=== PATIENT | male | born 1935 | race Caucasian/White ===

== ENCOUNTER → 2016-06-16 | Outpatient (CLI) | payer MEDICARE, OTHER ==
[2016-06-16 12:09] LABS: HEMATOCRIT 47.6 % (39.0-51.0); MEAN CELL VOLUME 84.7 FL (80.0-100.0); MEAN CORPUSCULAR HEMOGLOBIN 28.3 PG (27.0-34.0); MEAN CORPUSCULAR HGB CONC 33.4 % (32.0-36.0); PLATELET COUNT 213 TH/MM3 (150-450); RED BLOOD COUNT 5.63 MIL/MM3 (4.50-5.90); RED CELL DISTRIBUTION WIDTH 14.3 % (11.6-17.2); REVIEW FLAG FINAL; WHITE BLOOD COUNT 9.2 TH/MM3 (4.0-11.0)
[2016-06-16 12:16] LABS: CREATININE RANDOM URINE 68 MG/DL (27-300)
[2016-06-16 12:26] LABS: MICRO ALBUMIN RANDOM URINE RAW LESS THAN 5.0 MG/L (0.0-30.0); MICROALBUMIN/CREAT RATIO RAND 7 MG/G CRE (0-30)
[2016-06-16 12:48] LABS: ALT (GPT) 29 U/L (12-78); ANION GAP 4 MEQ/L (5-15); AST (GOT) 18 U/L (15-37); BICARBONATE 30.1 MEQ/L (21.0-32.0); BLOOD UREA NITROGEN 21 MG/DL (7-18); CHLORIDE 103 MEQ/L (98-107); GLOMERULAR FILTRATION RATE 65 ML/MIN (>89); GLUCOSE,FASTING 115 MG/DL (74-99); POTASSIUM 4.2 MEQ/L (3.5-5.1); SODIUM (NA) 137 MEQ/L (136-145)
[2016-06-16 12:51] LABS: ALKALINE PHOSPHATASE 58 U/L (45-117); HDL CHOLESTEROL 45.7 MG/DL (40.0-60.0); LDL CHOLESTEROL 123 MG/DL (0-99); LDL CHOLESTEROL DIRECT 130 MG/DL (0-99); TOTAL BILIRUBIN ADULT 0.6 MG/DL (0.2-1.0)
[2016-06-16 17:25] LABS: HEMOGLOBIN A1b 0.9 %; HEMOGLOBIN Ao 84.2 %; HEMOGLOBIN LA1C 2.2 %; HEMOGLOBIN P3 4.1 %
== END ==
LOC: PLAB 08:20
PROVIDERS: ATTEND Internal Medicine
DX: E11.65 Type 2 diabetes mellitus with hyperglycemia (principal); I10 Essential (primary) hypertension; E78.5 Hyperlipidemia, unspecified
CPT/HCPCS: 36415; 80053; 80061; 82043; 83036; 83721; 85027

== ENCOUNTER → 2016-10-13 | Outpatient (CLI) | payer MEDICARE, OTHER ==
[2016-10-13 10:57] LABS: HEMATOCRIT 46.6 % (39.0-51.0); MEAN CELL VOLUME 87.4 FL (80.0-100.0); MEAN CORPUSCULAR HEMOGLOBIN 28.6 PG (27.0-34.0); MEAN CORPUSCULAR HGB CONC 32.7 % (32.0-36.0); PLATELET COUNT 199 TH/MM3 (150-450); RED BLOOD COUNT 5.33 MIL/MM3 (4.50-5.90); RED CELL DISTRIBUTION WIDTH 14.4 % (11.6-17.2); REVIEW FLAG FINAL; WHITE BLOOD COUNT 8.6 TH/MM3 (4.0-11.0)
[2016-10-13 12:41] LABS: ALKALINE PHOSPHATASE 58 U/L (45-117); ALT (GPT) 31 U/L (12-78); ANION GAP 6 MEQ/L (5-15); AST (GOT) 19 U/L (15-37); BICARBONATE 30.2 MEQ/L (21.0-32.0); BLOOD UREA NITROGEN 25 MG/DL (7-18); CHLORIDE 103 MEQ/L (98-107); GLOMERULAR FILTRATION RATE 68 ML/MIN (>89); GLUCOSE,FASTING 116 MG/DL (74-99); HDL CHOLESTEROL 44.1 MG/DL (40.0-60.0); LDL CHOLESTEROL 119 MG/DL (0-99); LDL CHOLESTEROL DIRECT 120 MG/DL (0-99); POTASSIUM 4.2 MEQ/L (3.5-5.1); SODIUM (NA) 139 MEQ/L (136-145); TOTAL BILIRUBIN ADULT 0.5 MG/DL (0.2-1.0)
== END ==
LOC: PLAB 08:18
PROVIDERS: ATTEND Internal Medicine
DX: I10 Essential (primary) hypertension (principal); R73.09 Other abnormal glucose; E78.5 Hyperlipidemia, unspecified
CPT/HCPCS: 36415; 80053; 80061; 83721; 85027

== ENCOUNTER → 2017-02-23 | Outpatient (CLI) | payer MEDICARE, OTHER ==
[2017-02-23 10:02] LABS: BLOOD, URINE NEG (NEG); GLUCOSE,URINE NEG (NEG); KETONE, URINE NEG (NEG); NITRITE,URINE NEG (NEG); URINE COLOR YELLOW (YELLW/STRAW)
[2017-02-23 10:04] LABS: HEMATOCRIT 43.6 % (39.0-51.0); MEAN CELL VOLUME 87.3 FL (80.0-100.0); MEAN CORPUSCULAR HEMOGLOBIN 29.4 PG (27.0-34.0); MEAN CORPUSCULAR HGB CONC 33.7 % (32.0-36.0); PLATELET COUNT 215 TH/MM3 (150-450); RED CELL DISTRIBUTION WIDTH 14.2 % (11.6-17.2); REVIEW FLAG FINAL; WHITE BLOOD COUNT 7.9 TH/MM3 (4.0-11.0)
[2017-02-23 10:21] LABS: ANION GAP 6 MEQ/L (5-15); AST (GOT) 17 U/L (15-37); BLOOD UREA NITROGEN 23 MG/DL (7-18); CHLORIDE 102 MEQ/L (98-107); GLOMERULAR FILTRATION RATE 69 ML/MIN (>89); GLUCOSE,FASTING 117 MG/DL (74-99); POTASSIUM 4.3 MEQ/L (3.5-5.1); SODIUM (NA) 135 MEQ/L (136-145)
[2017-02-23 10:32] LABS: ALKALINE PHOSPHATASE 56 U/L (45-117); ALT (GPT) 27 U/L (12-78); FREE T4 0.93 NG/DL (0.76-1.46); HDL CHOLESTEROL 43.6 MG/DL (40.0-60.0); LDL CHOLESTEROL 117 MG/DL (0-99); LDL CHOLESTEROL DIRECT 123 MG/DL (0-99); TOTAL BILIRUBIN ADULT 0.3 MG/DL (0.2-1.0)
== END ==
LOC: PLAB 07:54
PROVIDERS: ATTEND Internal Medicine
DX: I10 Essential (primary) hypertension (principal); E03.9 Hypothyroidism, unspecified; E78.5 Hyperlipidemia, unspecified
CPT/HCPCS: 36415; 80053; 80061; 81001; 83721; 84439; 84443; 85027

== ENCOUNTER → 2017-06-21 | Outpatient (CLI) | payer MEDICARE, OTHER ==
[2017-06-21 14:04] LABS: ALBUMIN 4.1 GM/DL (3.4-5.0); ALT (GPT) 29 U/L (12-78); ANION GAP 7 MEQ/L (5-15); AST (GOT) 16 U/L (15-37); BICARBONATE 25.9 MEQ/L (21.0-32.0); BLOOD UREA NITROGEN 22 MG/DL (7-18); CALCIUM 8.9 MG/DL (8.5-10.1); CHLORIDE 104 MEQ/L (98-107); CHOLESTEROL 186 MG/DL (120-200); CREATININE 1.03 MG/DL (0.60-1.30); GLOMERULAR FILTRATION RATE 69 ML/MIN (>89); GLUCOSE,FASTING 115 MG/DL (74-99); POTASSIUM 4.3 MEQ/L (3.5-5.1); SODIUM (NA) 137 MEQ/L (136-145)
[2017-06-21 14:07] LABS: HEMATOCRIT 43.4 % (39.0-51.0); HEMOGLOBIN 14.8 GM/DL (13.0-17.0); MEAN CELL VOLUME 87.3 FL (80.0-100.0); MEAN CORPUSCULAR HEMOGLOBIN 29.9 PG (27.0-34.0); MEAN CORPUSCULAR HGB CONC 34.2 % (32.0-36.0); MEAN PLATELET VOLUME 8.7 FL (7.0-11.0); PLATELET COUNT 206 TH/MM3 (150-450); RED BLOOD COUNT 4.97 MIL/MM3 (4.50-5.90); RED CELL DISTRIBUTION WIDTH 13.9 % (11.6-17.2); REVIEW FLAG FINAL; WHITE BLOOD COUNT 7.5 TH/MM3 (4.0-11.0)
[2017-06-21 14:08] LABS: ALKALINE PHOSPHATASE 54 U/L (45-117); CHOLESTEROL/ HDL RATIO 4.53 RATIO; LDL CHOLESTEROL 116 MG/DL (0-99); TOTAL BILIRUBIN ADULT 0.5 MG/DL (0.2-1.0); TOTAL PROTEIN 7.5 GM/DL (6.4-8.2); TRIGLYCERIDES 143 MG/DL (42-150)
[2017-06-21 14:10] LABS: CREATININE RANDOM URINE 105 MG/DL (27-300)
[2017-06-21 14:23] LABS: MICRO ALBUMIN RANDOM URINE RAW 5.3 MG/L (0.0-30.0); MICROALBUMIN/CREAT RATIO RAND 5 MG/G CRE (0-30)
== END ==
LOC: PLAB 08:37
DX: I10 Essential (primary) hypertension (principal); E03.9 Hypothyroidism, unspecified; E78.5 Hyperlipidemia, unspecified
CPT/HCPCS: 36415; 80053; 80061; 82043; 85027

== ENCOUNTER → 2017-10-25 | Outpatient (CLI) | payer MEDICARE, OTHER ==
[2017-10-25 10:37] LABS: HEMOGLOBIN 14.6 GM/DL (13.0-17.0); MEAN CELL VOLUME 86.7 FL (80.0-100.0); MEAN CORPUSCULAR HEMOGLOBIN 29.4 PG (27.0-34.0); MEAN CORPUSCULAR HGB CONC 33.9 % (32.0-36.0); MEAN PLATELET VOLUME 8.4 FL (7.0-11.0); PLATELET COUNT 189 TH/MM3 (150-450); RED BLOOD COUNT 4.97 MIL/MM3 (4.50-5.90); RED CELL DISTRIBUTION WIDTH 14.3 % (11.6-17.2); WHITE BLOOD COUNT 7.4 TH/MM3 (4.0-11.0)
[2017-10-25 10:53] LABS: ALBUMIN 3.9 GM/DL (3.4-5.0); AST (GOT) 24 U/L (15-37); BICARBONATE 26.6 MEQ/L (21.0-32.0); BLOOD UREA NITROGEN 20 MG/DL (7-18); CALCIUM 8.9 MG/DL (8.5-10.1); CHLORIDE 104 MEQ/L (98-107); CHOLESTEROL 175 MG/DL (120-200); CREATININE 1.03 MG/DL (0.60-1.30); GLOMERULAR FILTRATION RATE 69 ML/MIN (>89); GLUCOSE,FASTING 114 MG/DL (74-99); SODIUM (NA) 138 MEQ/L (136-145)
[2017-10-25 10:59] LABS: ALKALINE PHOSPHATASE 54 U/L (45-117); ALT (GPT) 29 U/L (12-78); CHOLESTEROL/ HDL RATIO 4.18 RATIO; HDL CHOLESTEROL 41.8 MG/DL (40.0-60.0); LDL CHOLESTEROL 110 MG/DL (0-99); LDL CHOLESTEROL DIRECT 118 MG/DL (0-99); TOTAL BILIRUBIN ADULT 0.5 MG/DL (0.2-1.0); TOTAL PROTEIN 7.4 GM/DL (6.4-8.2); TRIGLYCERIDES 115 MG/DL (42-150)
== END ==
LOC: PLAB 08:20
PROVIDERS: ATTEND Internal Medicine
DX: I10 Essential (primary) hypertension (principal); E78.5 Hyperlipidemia, unspecified
CPT/HCPCS: 36415; 80053; 80061; 83721; 85027

== ENCOUNTER 2018-04-17 12:22 | Inpatient (IN) ==
[2018-04-17] MEDS ORDERED: Labetalol HCl Inj 100 MG/20 ML Vial IV.PUSH ONE (12:46)
--- NOTE | 2018-04-17 12:54 | ED ---
HPI General Chief Complaint: Neuro Symptoms/Deficit Stated Complaint: poss neuro Time Seen by Provider: 04/17/18 12:36 History of Present Illness HPI Narrative: Patient is 83-year-old male with history of high blood pressure, 2 days ago when he woke up noticed mild right arm and right leg weakness, mild left-sided facial droop and difficulty to talk. Patient also mentioned that he has a spot in right eye for 2 days, decrease in size today. Today patient decided to come to emergency room because his symptoms not resolving. Patient is constipated for 2 days. Patient has old symptoms very mild. He denies headache, chest pain, fever, nausea, vomiting. Patient is awake alert oriented x3, complains of forgetfulness, which is not new. Due to 2 days symptoms, patient is not a candidate for TPA treatment. Related Data Home Medications Medication Instructions Recorded Confirmed tamsulosin 0.4 mg PO DAILY 04/17/18 04/17/18 valsartan-hydrochlorothiazide 1 tab PO DAILY 04/17/18 04/17/18 Allergies Allergy/AdvReac Type Severity Reaction Status Date / Time No Known Allergies Allergy Verified 04/17/18 12:44 Review of Systems ROS: all other systems reviewed are negative Neurologic Reports focal weakness PMFSH Medical History Medical History HTN (hypertension) (Acute) Surgical History Surgical History H/O arthroscopic knee surgery (Acute) Social History Social History Substance History: No History of Abuse Smoking Status: Never smoker How Often Do You Have a Drink Containing Alcohol: Never Recent Travel in [facility] within the Last 8 Weeks: No Recent Out of Country Travel within the Last 8 Weeks: No Immunization History Tetanus Immunization: Unsure Exam Narrative Exam Narrative: GENERAL: [-] SKIN: Focused skin assessment warm/dry. HEAD: Atraumatic. Normocephalic. EYES: Pupils equal and round. No scleral icterus. No injection or drainage. ENT: No nasal bleeding or discharge. Mucous membranes pink and moist. NECK: Trachea midline. No JVD. CARDIOVASCULAR: Regular rate and rhythm. No murmur appreciated. RESPIRATORY: No accessory muscle use. Clear to auscultation. Breath sounds equal bilaterally. GASTROINTESTINAL: Abdomen soft, non-tender, nondistended. Hepatic and splenic margins not palpable. MUSCULOSKELETAL: No obvious deformities. No clubbing. No cyanosis. No edema. NEUROLOGICAL: Awake and alert. Patient has 5- out of 5 weakness on right arm and leg, minimal facial droop on left no slurred speech, but patient complained that it is difficult to talk. PSYCHIATRIC: Appropriate mood and affect; insight and judgment normal. Course Initial Documented Vital Signs Temperature 98.9 F 04/17/18 12:30 Pulse Rate 96 H 04/17/18 12:30 Respiratory Rate 22 04/17/18 12:30 Blood Pressure 186/87 H 04/17/18 12:30 Pulse Oximetry 97 04/17/18 12:30 Last Documented Vital Signs Temperature 98.9 F 04/17/18 12:30 Pulse Rate 82 04/17/18 14:23 Respiratory Rate 22 04/17/18 12:30 Blood Pressure 141/72 H 04/17/18 14:23 Pulse Oximetry 97 04/17/18 12:30 Medical Decision Making MDM Narrative Medical decision making narrative: Stroke workup ordered, CAT scan with labs, results are pending. Patient is not a TPA candidate., Labs noted, within normal limits, CAT scan was read as a negative. Patient weakness improving. Needs to be admitted for further evaluation and treatment, case discussed with Dr. Mahmood team. Accepted for admission. Medical Screen Exam Complete: Yes Emergency Medical Condition: Yes Lab Data Result diagrams: 04/17/18 12:53 04/17/18 12:53 Lab Results 04/17/18 04/17/18 04/17/18 Range/Units 12:53 12:53 12:53 WBC 9.5 (4.0-11.0) th/mm3 RBC 4.98 (4.50-5.90) mil/mm3 Hgb 15.3 (13.0-17.0) gm/dL Hct 43.3 (39.0-51.0) % MCV 87.1 (80.0-100.0) fL MCH 30.8 (27.0-34.0) pg MCHC 35.4 (32.0-36.0) % RDW 14.4 (11.6-17.2) % Plt Count 200 (150-450) th/mm3 MPV 8.2 (7.0-11.0) fL Neut % (Auto) 66.3 (16.0-70.0) % Lymph % (Auto) 23.9 (9.0-44.0) % Bleck[place] % (Auto) 8.1 H (0.0-8.0) % Eos % (Auto) 1.4 (0.0-4.0) % Baso % (Auto) 0.3 (0.0-2.0) % Neut # (Auto) 6.3 (1.8-7.7) th/mm3 Lymph # (Auto) 2.3 (1.0-4.8) th/mm3 [place]ck[place] # (Auto) 0.8 (0.0-0.9) th/mm3 Eos # (Auto) 0.1 (0.0-0.4) th/mm3 Baso # (Auto) 0.0 (0.0-0.2) th/mm3 WBC Differential . Differential Comment Auto diff final PT 10.4 (9.8-11.6) sec INR 1.0 Ratio Sodium 138 (136-145) meq/L Potassium 4.1 (3.5-5.1) meq/L Chloride 101 (98-107) meq/L Carbon Dioxide 25.5 (21.0-32.0) meq/L Anion Gap 12 (5-15) meq/L BUN 24 H (7-18) mg/dL Creatinine 1.16 (0.60-1.30) mg/dL Estimated GFR 60 L (>89) mL/min Random Glucose 99 (74-106) mg/dL Calcium 9.2 (8.5-10.1) mg/dL Total Bilirubin 0.4 (0.2-1.0) mg/dL AST 22 (15-37) U/L ALT 31 (12-78) U/L Alkaline Phosphatase 59 (45-117) U/L Troponin I Less than 0.02 L (0.02-0.05) ng/mL Total Protein 8.1 (6.4-8.2) g/dL Albumin 4.3 (3.4-5.0) g/dL Imaging Data Radiologist's impression: Head CT 04/17/18 12:44 CONCLUSION: 1. Patchy white matter disease. . Discharge Plan Discharge Disposition Patient Disposition: 30 Still Patient Discharge Condition Condition: Fair Discharge Details Diagnosis: Acute CVA (cerebrovascular accident) Physicians Team ED Provider: Scottie Olguin Primary Care Provider: UNKNOWN, Rxs /Orders / Referrals /Forms Prescriptions: No Action tamsulosin 0.4 mg Capsule 0.4 mg PO DAILY RF: 0 valsartan-hydrochlorothiazide 320-12.5 mg Tablet 1 tab PO DAILY RF: 0 Discharge Interventions Interventions: Vital Signs Last Done: 04/17/18 14:23 Status ED Status: Admitted Patient
--- NOTE | 2018-04-17 13:28 | CT ---
EXAM DATE: 04/17/2018 1:22 PM EST AGE/SEX: 83 years / Male INDICATIONS: Right sided weakness, left sided facial droop and dysphasia for one week. CLINICAL DATA: This is the patient's initial encounter. Patient reports that signs and symptoms have been present for 1 day and indicates a pain score of 0/10. MEDICAL/SURGICAL HISTORY: Hypertension. None. RADIATION DOSE: 36.48 CTDI (mGy) COMPARISON: No prior exams available for comparison. TECHNIQUE: CT of the head without contrast. Using automated exposure control and adjustment of the mA and/or kV according to patient size, radiation dose was kept as low as reasonably achievable to ob tain optimal diagnostic quality images. DICOM format image data is available electronically for revi ew and comparison. FINDINGS: Ventricles and cisterns are of normal size and configuration. Patchy hypodensity in the bilateral meek trum semiovale and periventricular white matter identified. 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 No fractures are seen. Vascular calcifications are noted. No hemorrhage or mass. CONCLUSION: 1. Patchy white matter disease. . Electronically signed by: Demond Stanley MD 04/17/2018 1:27 PM EST
[2018-04-17 13:33] LABS: Baso % (Auto) 0.3 % (0.0-2.0); Eos # (Auto) 0.1 th/mm3 (0.0-0.4); Eos % (Auto) 1.4 % (0.0-4.0); Hematocrit 43.3 % (39.0-51.0); Hemoglobin 15.3 gm/dL (13.0-17.0); Lymph # (Auto) 2.3 th/mm3 (1.0-4.8); Lymph % (Auto) 23.9 % (9.0-44.0); Mean Corpuscular HGB Conc 35.4 % (32.0-36.0); Mean Corpuscular Hemoglobin 30.8 pg (27.0-34.0); Mean Corpuscular Volume 87.1 fL (80.0-100.0); Mean Platelet Volume 8.2 fL (7.0-11.0); Mono # (Auto) 0.8 th/mm3 (0.0-0.9); Mono % (Auto) 8.1 % (0.0-8.0); Neut # (Auto) 6.3 th/mm3 (1.8-7.7); Neut % (Auto) 66.3 % (16.0-70.0); Platelet Count 200 th/mm3 (150-450); Red Blood Count 4.98 mil/mm3 (4.50-5.90); Red Cell Distribution Width 14.4 % (11.6-17.2); White Blood Count 9.5 th/mm3 (4.0-11.0)
[2018-04-17 13:40] LABS: Prothrombin Time 10.4 sec (9.8-11.6)
[2018-04-17 13:48] LABS: Alanine Aminotransferase 31 U/L (12-78); Albumin 4.3 g/dL (3.4-5.0); Anion Gap 12 meq/L (5-15); Aspartate Aminotransferase 22 U/L (15-37); Blood Urea Nitrogen 24 mg/dL (7-18); Calcium 9.2 mg/dL (8.5-10.1); Carbon Dioxide 25.5 meq/L (21.0-32.0); Chloride 101 meq/L (98-107); Glomerular Filtration Rate 60 mL/min (>89); Glucose,Random 99 mg/dL (74-106); Potassium 4.1 meq/L (3.5-5.1); Sodium 138 meq/L (136-145)
[2018-04-17 13:51] LABS: Alkaline Phosphatase 59 U/L (45-117); Total Protein 8.1 g/dL (6.4-8.2)
[2018-04-17 14:49] LABS: Bilirubin,Urine Negative (Negative); Clarity,Urine Clear (Clear); Color,Urine Straw (Yellw/Straw); Glucose,Urine (UA) Negative (Negative); Leukocyte Esterase,Urine Negative (Negative); Mucus,Urine Few /lpf (Occasional); Nitrite,Urine Negative (Negative); Specific Gravity,Urine 1.008 (1.002-1.035)
--- NOTE | 2018-04-17 14:51 | P.HPFP ---
History of Present Illness Primary Care Physician: UNKNOWN <Noah Mahmood - 04/18/18 13:48> UNKNOWN <Regine Yoon Rich - 04/17/18 14:51> Chief Complaint: Right sided weakness and difficulty with speech <CarRegine Rich - 04/17/18 16:13> History of Present Illness: 83-year-old male past medical history of hypertension presents to the ED with 2-day history of right-sided weakness and difficulty with speech. He said 3 weeks ago he noticed he had increased fatigue and difficulty finding words. He said it was difficult for him to say the correct words as well as remember words for priors. He also had difficulty performing tasks that involved math or calculations. About a week ago he noticed some decreased blurry vision from his right eye in the right peripheral area but that has resolved. In 2 weeks ago he woke up with weakness of his right arm and right leg. He said he noticed he was dropping things such as a month this morning with his right hand. And he was nervous about falling given his right leg weakness. Did not have any falls. He says that he feels like the weakness has been getting worse as well as the difficulty with speech. He also states that the fatigue has been getting worse. He came to the ED because of the continued symptoms. Has had previous surgery on his right leg. He does not use any devices for assistance with walking. He denied any headaches, dizziness, chest pain, shortness of breath, or palpitations. He denies any fevers or weight loss. He has had some constipation for the past week and took MiraLAX and had a bowel movement yesterday. Usually he goes daily. He has had some decreased appetite but has been drinking well. He said he has had some nasal congestion but no other recent illness. PMH: BPH, HTN meds: Aleve at night and Tylenol in the morning for knee pain, valsartan-HCTZ, tamsulosin SH: arthroscopic surgery of right knee Allergies: none Family history: diabetes (sister), stroke (mom) Social: quit smoking 40 yrs ago smoked 1ppd for 20yrs, no alcohol use, Lives at home with son and and grandchildren <CarRegine Villanueva - 04/17/18 17:00> - Diagnosis (1) Acute CVA (cerebrovascular accident) (2) Hypertension (3) Nutrition, metabolism, and development symptoms <Noah Mahmood 04/18/18 13:48> (1) Acute CVA (cerebrovascular accident) (2) Hypertension (3) Nutrition, metabolism, and development symptoms <Regine Yoon 04/17/18 16:47> Review of Systems Constitutional: Reports fatigue, Reports weakness, Denies fever(s), Denies night sweats, Denies weight gain, Denies weight loss <Regine Yoon 16:03> Eyes: Reports blurry vision <Regine Yoon 04/17/18 16:03> Ears, Nose, Mouth, and Throat: Reports nasal discharge, Denies sore throat < Regine Yoon 04/17/18 16:03> Cardiovascular: Denies chest pain <Regine Yoon 04/17/18 16:03> Respiratory: Denies shortness of breath <Regine Yoon 04/17/18 16:03> Gastrointestinal: Reports constipation, Denies loose stools, Denies vomiting < Regine Yoon 04/17/18 16:03> Genitourinary: Denies painful urination <Regine Yoon 04/17/18 16:03> Musculoskeletal: Reports abnormal walking <Regine Yoon 04/17/18 16:03> Skin/Breast: Denies rash <Regine Yoon 04/17/18 16:03> Neurologic: Reports abnormal speech, Reports weakness, Denies numbness, Denies tingling <Regine Yoon 04/17/18 16:03> Psychiatric: Reports difficulty concentrating <Regine Yoon 04/17/18 16: 03> Endocrine: Denies excessive sweating <Regine Yoon 04/17/18 16:03> Hematologic/Lymphatic: Reports easy bruising <Regine Yoon 04/17/18 16:03 > Allergic/Immunologic: Denies hives <Regine Yoon 04/17/18 16:03> PMFSH - History History Provided By: Patient, Family Member <Regine Yoon 04/17/18 14:51> - Medical History Medical History: Medical History (Last Updated 04/17/18 @ 12:36 by Lucila Santos RN) HTN (hypertension) <Noah Mahmood - 04/18/18 13:48> Medical History (Last Updated 04/17/18 @ 12:36 by Lucila Santos, RN) HTN (hypertension) <Regine Yoon - 04/17/18 14:51> - Surgical History Surgical History: Surgical History (Last Updated 04/17/18 @ 12:36 by Lucila Santos, RN) H/O arthroscopic knee surgery <Noah Mahmood - 04/18/18 13:48> Surgical History (Last Updated 04/17/18 @ 12:36 by Lucila Santos, CATHERINE) H/O arthroscopic knee surgery <Regine Yoon - 04/17/18 14:51> - Tobacco History Smoking Status: Never smoker <Regine Yoon 04/17/18 14:51> - Alcohol History How Often Do You Have a Drink Containing Alcohol: Never <Regine Yoon 04/24 14:51> - Substance Use History Substance History: No History of Abuse <Regine Yoon 04/17/18 14:51> - Travel History Recent Travel in the [facility] Within the Last 8 Weeks: No <Regine Yoon 14:51> Recent Travel Out of the Country Within the Last 8 Weeks: No <Regine Yoon 04/17/18 14:51> - Immunization History Tetanus Immunization: Unsure <Regine Yoon 04/17/18 14:51> Medications and Allergies Allergies Allergy/AdvReac Type Severity Reaction Status Date / Time No Known Allergies Allergy Verified 04/17/18 12:44 <Noah Mahmood - 04/18/18 13:48> Home Medications Medication Instructions Recorded Confirmed Type tamsulosin 0.4 mg PO DAILY 04/17/18 04/17/18 History valsartan-hydrochlorothiazide 1 tab PO DAILY 04/17/18 04/17/18 History <Noah Mahmood 04/18/18 13:48> Active Medications: Active Medications Al Hydroxide/Mg Hydroxide (Milk Of Hernando Likeshav) 30 ml PO Q12H PRN PRN Reason: Mild Constipation Aspirin (Aspirin Chew) 81 mg PO DAILY [facility] Last Admin: 04/18/18 09:26 Dose: 81 mg Atorvastatin Calcium (Lipitor) 80 mg PO DAILY [facility] Last Admin: 04/18/18 09:26 Dose: 80 mg Clonidine HCl (Catapres) 0.1 mg PO Q6H PRN PRN Reason: SEE LABEL COMMENTS Enoxaparin Sodium (Lovenox Inj) 40 mg SQ Q24H [facility] Last Admin: 04/17/18 18:52 Dose: Not Given Sodium Chloride (Ns Inj) 1,000 mls @ 84 mls/hr IV.CONT .[id number] [facility] Last Admin: 04/18/18 06:34 Dose: 84 mls/hr Senna/Docusate Sodium (Ria-Colace) 1 tab PO BID [facility] Last Admin: 04/18/18 09:26 Dose: 1 tab Sennosides (Senokot) 17.2 mg PO Q12H PRN PRN Reason: Moderate Constipation <Noah Mahmood - 04/18/18 13:48> Exam Vital signs: Vital Signs 04/17/18 14:23 04/17/18 16:00 04/17/18 20:00 Temperature 98.8 F 98.3 F Pulse Rate 82 81 89 Respiratory Rate 18 18 Blood Pressure 141/72 H 162/77 H 142/63 H Pulse Oximetry 96 97 04/18/18 00:00 04/18/18 04:00 04/18/18 08:00 Temperature 98.3 F 97.7 F 97.4 F L Pulse Rate 79 81 74 Respiratory Rate 20 17 14 Blood Pressure 112/67 145/78 H 145/76 H Pulse Oximetry 96 97 95 Intake & Output 04/17/18 04/18/18 04/18/18 18:59 06:59 18:59 Intake Total 945 / 945 Balance 945 / 945 Weight 88.6 kg 88.5 kg Intake: IV 945 / 945 NS Inj 1,000 ML @ 84 mls/hr IV. 945 / 945 CONT .[id number] [facility] Rx#:[id number] Other: # Voids 3 Date of Last Bowel Movement 04/17/18 04/17/18 Weight On Admission 88.6 kg <TimoteoNoah Addis Carlson 04/18/18 13:48> Vital Signs 04/17/18 12:30 04/17/18 13:35 04/17/18 14:23 Temperature 98.9 F Pulse Rate 96 H 90 82 Respiratory Rate 22 Blood Pressure 186/87 H 142/61 H 141/72 H Pulse Oximetry 97 Intake & Output 04/16/18 04/17/18 04/17/18 18:59 06:59 18:59 Weight 83.915 kg <Regine Yoon - 04/17/18 14:51> Narrative: GENERAL: SKIN: Warm and dry. HEAD: Atraumatic. Normocephalic. No facial asymmetry noted. EYES: Pupils equal and round. No scleral icterus. No injection or drainage. ENT: No nasal bleeding or discharge. Mucous membranes pink and moist. NECK: Trachea midline. No JVD. CARDIOVASCULAR: Regular rate and rhythm. Soft bruit of R carotid. RESPIRATORY: No accessory muscle use. Clear to auscultation. Breath sounds equal bilaterally. GASTROINTESTINAL: Abdomen soft, non-tender, nondistended. Hepatic and splenic margins not palpable. MUSCULOSKELETAL: Extremities without clubbing, cyanosis, or edema. No obvious deformities. NEUROLOGICAL: Awake and alert. CN 2-12 intact. Motor grossly within normal limits. Five out of 5 muscle strength in the arms and legs. Normal speech. No pronator drift. Some difficult with finger to nose bilaterally as well as heel to barker for cerebellar function. PSYCHIATRIC: Appropriate mood and affect; insight and judgment normal. <Regine Yoon - 04/17/18 16:13> Results - Labs Result diagrams: 04/18/18 05:30 04/18/18 05:30 <Noah Mahmood - 04/18/18 13:48> Abnormal lab results 04/17/18 04/17/18 04/17/18 Range/Units 12:53 12:53 14:32 [place] % (Auto) (0.0-8.0) % BUN 24 H (7-18) mg/dL Estimated GFR 60 L (>89) mL/min POC Glucose (68-110) mg/dl Troponin I Less than 0.02 L (0.02-0.05) ng/mL Triglycerides 240 H (42-150) mg/dL LDL Cholesterol, Calc 105 H (0-99) mg/dL Urine Mucus Few H (Occasional) /lpf 04/17/18 04/18/18 04/18/18 Range/Units 20:16 05:30 05:30 [place] % (Auto) 9.3 H (0.0-8.0) % BUN 19 H (7-18) mg/dL Estimated GFR 76 L (>89) mL/min POC Glucose 138 H (68-110) mg/dl Troponin I (0.02-0.05) ng/mL Triglycerides (42-150) mg/dL LDL Cholesterol, Calc (0-99) mg/dL Urine Mucus (Occasional) /lpf 04/18/18 04/18/18 Range/Units 07:45 11:15 [place] % (Auto) (0.0-8.0) % BUN (7-18) mg/dL Estimated GFR (>89) mL/min POC Glucose 121 H 123 H (68-110) mg/dl Troponin I (0.02-0.05) ng/mL Triglycerides (42-150) mg/dL LDL Cholesterol, Calc (0-99) mg/dL Urine Mucus (Occasional) /lpf Short CBC 04/18/18 Range/Units 05:30 WBC 9.0 (4.0-11.0) th/mm3 Hgb 14.5 (13.0-17.0) gm/dL Hct 41.5 (39.0-51.0) % Plt Count 193 (150-450) th/mm3 BMP 04/17/18 04/18/18 12:53 05:30 Sodium 138 140 Potassium 4.1 4.0 Chloride 101 102 Carbon Dioxide 25.5 26.9 BUN 24 H 19 H Creatinine 1.16 0.95 Calcium 9.2 8.7 Cardiac Enzymes 04/17/18 Range/Units 12:53 Troponin I Less than 0.02 L (0.02-0.05) ng/mL Liver Function 04/17/18 Range/Units 12:53 Total Bilirubin 0.4 (0.2-1.0) mg/dL AST 22 (15-37) U/L ALT 31 (12-78) U/L Alkaline Phosphatase 59 (45-117) U/L Albumin 4.3 (3.4-5.0) g/dL Urine 04/17/18 Range/Units 14:32 Urine Color Straw (Yellw/Straw) Urine Clarity Clear (Clear) Urine pH 6.0 (5.0-8.5) Ur Specific [place] 1.008 (1.002-1.035) Urine Protein Negative (Neg-Trace) mg/dL Urine Glucose (UA) Negative (Negative) mg/dL <YoungNoah L - 04/18/18 13:48> Abnormal lab results 04/17/18 04/17/18 Range/Units 12:53 12:53 [place] % (Auto) 8.1 H (0.0-8.0) % BUN 24 H (7-18) mg/dL Estimated GFR 60 L (>89) mL/min Troponin I Less than 0.02 L (0.02-0.05) ng/mL Short CBC 04/17/18 Range/Units 12:53 WBC 9.5 (4.0-11.0) th/mm3 Hgb 15.3 (13.0-17.0) gm/dL Hct 43.3 (39.0-51.0) % Plt Count 200 (150-450) th/mm3 BMP 04/17/18 12:53 Sodium 138 Potassium 4.1 Chloride 101 Carbon Dioxide 25.5 BUN 24 H Creatinine 1.16 Calcium 9.2 Cardiac Enzymes 04/17/18 Range/Units 12:53 Troponin I Less than 0.02 L (0.02-0.05) ng/mL Liver Function 04/17/18 Range/Units 12:53 Total Bilirubin 0.4 (0.2-1.0) mg/dL AST 22 (15-37) U/L ALT 31 (12-78) U/L Alkaline Phosphatase 59 (45-117) U/L Albumin 4.3 (3.4-5.0) g/dL <Regine Yoon - 04/17/18 14:51> - Imaging Impressions Carotid Doppler Study 04/17/18 00:00 CONCLUSION: Technically difficult exam. Unable to obtain color Doppler and the left internal carotid artery. Cannot exclude occlusion. This would be better evaluated with CTA. No hemodynamically significant stenosis identified on the right. Neck CTA 04/17/18 00:00 CONCLUSION: 1. 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 2. High-grade approximately 70% stenosis proximal right internal carotid artery , hemodynamically significant considering findings on the left. Head MRI 04/17/18 15:19 CONCLUSION: 1. Multiple small acute infarcts in the left hemisphere including in the left occipital lobe and deep white matter of the left periventricular region all measuring 1 cm or less in diameter. Head MRA 04/17/18 15:19 CONCLUSION: 1. Occlusion of the left internal carotid artery with absent flow distally. Poor reconstitution of flow in the left middle cerebral artery with a probable focus stenosis in the distal left MCA. 2. The anterior cerebral, posterior cerebral and right middle cerebral artery are patent. <Noah Mahmood - 04/18/18 13:48> Impressions Head CT 04/17/18 12:44 CONCLUSION: 1. Patchy white matter disease. . <Regine Yoon - 04/17/18 14:51> Caprini VTE Risk Assessment Caprini VTE Risk Assessment: Moderate/High Risk (score >= 2) <Regine Yoon - 04/17/18 16:13> Caprini Risk Assessment Model: Point Value = 1 Point Value = 2 Point Value = 3 Point Value = 5 Age 41-60 Minor surgery BMI > 25 kg/m2 Swollen legs Varicose veins or History of unexplained or recurrent spontaneous Oral contraceptives or hormone replacement Sepsis (< 1 month) Serious lung disease, including pneumonia (< 1 month) Abnormal pulmonary function Acute myocardial infarction Congestive heart failure (< 1 month) History of inflammatory bowel disease Medical patient at bed rest Age 61-74 Arthroscopic surgery Major open surgery (> 45 min) Laparoscopic surgery (> 45 min) Malignancy Confined to bed (> 72 hours) Immobilizing plaster cast Central venous access Age >= 75 History of VTE Family history of VTE Factor V Leiden Prothrombin [id number] Lupus anticoagulant Anticardiolipin antibodies Elevated serum homocysteine Heparin-induced thrombocytopenia Other congenital or acquired thrombophilia Stroke (< 1 month) Elective arthroplasty Hip, pelvis, or leg fracture Acute spinal cord injury (< 1 month) <Noah Mahmood - 04/18/18 13:48> Point Value = 1 Point Value = 2 Point Value = 3 Point Value = 5 Age 41-60 Minor surgery BMI > 25 kg/m2 Swollen legs Varicose veins or History of unexplained or recurrent spontaneous Oral contraceptives or hormone replacement Sepsis (< 1 month) Serious lung disease, including pneumonia (< 1 month) Abnormal pulmonary function Acute myocardial infarction Congestive heart failure (< 1 month) History of inflammatory bowel disease Medical patient at bed rest Age 61-74 Arthroscopic surgery Major open surgery (> 45 min) Laparoscopic surgery (> 45 min) Malignancy Confined to bed (> 72 hours) Immobilizing plaster cast Central venous access Age >= 75 History of VTE Family history of VTE Factor V Leiden Prothrombin [id number] Lupus anticoagulant Anticardiolipin antibodies Elevated serum homocysteine Heparin-induced thrombocytopenia Other congenital or acquired thrombophilia Stroke (< 1 month) Elective arthroplasty Hip, pelvis, or leg fracture Acute spinal cord injury (< 1 month) <Regine Yoon - 04/17/18 14:51> Prophylaxis Regimen: Total Risk Factor Score Risk Level Prophylaxis Regimen 0-1 Low Early ambulation 2 Moderate Order ONE of the following: *Sequential Compression Device (SCD) *Heparin 5000 units SQ BID 3-4 Higher Order ONE of the following medications: *Heparin 5000 units SQ TID *Enoxaparin/Lovenox 40 mg SQ daily (WT < 150 kg, CrCl > 30 mL/min) *Enoxaparin/Lovenox 30 mg SQ daily (WT < 150 kg, CrCl > 10-29 mL/min) *Enoxaparin/Lovenox 30 mg SQ BID (WT < 150 kg, CrCl > 30 mL/min) AND/OR *Sequential Compression Device (SCD) 5 or more Highest Order ONE of the following medications: *Heparin 5000 units SQ TID (Preferred with Epidurals) *Enoxaparin/Lovenox 40 mg SQ daily (WT < 150 kg, CrCl > 30 mL/min) *Enoxaparin/Lovenox 30 mg SQ daily (WT < 150 kg, CrCl > 10-29 mL/min) *Enoxaparin/Lovenox 30 mg SQ BID (WT < 150 kg, CrCl > 30 mL/min) AND *Sequential Compression Device (SCD) <Noah Mahmood L - 04/18/18 13:48> Total Risk Factor Score Risk Level Prophylaxis Regimen 0-1 Low Early ambulation 2 Moderate Order ONE of the following: *Sequential Compression Device (SCD) *Heparin 5000 units SQ BID 3-4 Higher Order ONE of the following medications: *Heparin 5000 units SQ TID *Enoxaparin/Lovenox 40 mg SQ daily (WT < 150 kg, CrCl > 30 mL/min) *Enoxaparin/Lovenox 30 mg SQ daily (WT < 150 kg, CrCl > 10-29 mL/min) *Enoxaparin/Lovenox 30 mg SQ BID (WT < 150 kg, CrCl > 30 mL/min) AND/OR *Sequential Compression Device (SCD) 5 or more Highest Order ONE of the following medications: *Heparin 5000 units SQ TID (Preferred with Epidurals) *Enoxaparin/Lovenox 40 mg SQ daily (WT < 150 kg, CrCl > 30 mL/min) *Enoxaparin/Lovenox 30 mg SQ daily (WT < 150 kg, CrCl > 10-29 mL/min) *Enoxaparin/Lovenox 30 mg SQ BID (WT < 150 kg, CrCl > 30 mL/min) AND *Sequential Compression Device (SCD) <Regine Yoon - 04/17/18 14:51> Assessment and Plan - Assessment (1) Acute CVA (cerebrovascular accident) Code(s): I63.9 - Cerebral infarction, unspecified Status: Acute (2) Hypertension Code(s): I10 - Essential (primary) hypertension Status: Acute (3) Nutrition, metabolism, and development symptoms Code(s): R63.8 - Other symptoms and signs concerning food and fluid intake Status: Acute <Noah Mahmood - 04/18/18 13:48> (1) Acute CVA (cerebrovascular accident) Code(s): I63.9 - Cerebral infarction, unspecified Status: Acute Plan: 83-year-old male past medical history of hypertension presents with right-sided weakness and difficulty with speech. Weakness began 2 days ago. [place] that he has had increasing fatigue and difficulty speech for 3 weeks. DDX stroke, TIA, infection, electrolytes. Admission blood pressure 186/87. Troponin negative. CBC and BMP within normal limits. CT head: Chronic microvascular disease, patchy white matter disease -Neurology consult -PT consult -bedside swallow study -MR and MRA head -ECHO -Carotid Doppler -Neuro checks q 4hrs -labs: Lipid panel, TSH -Atorvastatin 80 and aspirin 81 mg Cardiac telemetry (2) Hypertension Code(s): I10 - Essential (primary) hypertension Status: Acute Plan: Currently holding home meds volsartan-HCTZ for permissive HTN -Clonidine 0.1mg PRN BP>220/120 (3) Nutrition, metabolism, and development symptoms Code(s): R63.8 - Other symptoms and signs concerning food and fluid intake Status: Acute Plan: Fluids: none Diet: Cardiac once passes swallow study Electolytes: Monitor and replete as needed DVT: lovenox Discussed with Dr. Mahmood and Dr. Oneil <Regine Yoon - 04/17/18 16:47> - Attending Attestation The exam, history, and the medical decision-making described in the above note were completed with the assistance of the resident physician. I reviewed and agree with the findings presented. I attest that I had a [id number] encounter with the patient on the same day, and personally performed and documented my assessment and findings in the medical record. I saw the patient with the resident team. He is an 83 year old male presenting with several day history of right sided weakness, blurry vision, word slurring, word finding difficulty concerning for acute CVA. I can hear a carotid bruit on the right side. Neuro exam is relatively normal, maybe very mild slurring and speech finding difficulty. At this time the right sided strength is pretty much back to normal. No facial drooping that is obvious. Plan to proceed with workup and management of acute CVA, including aspirin, statin, swallow study, neuro consultation, ECHO, MRI, MRA, etc. Will want to investigate carotid arteries given bruit heard on exam. Will monitor telemetry, rule out atrial fibrillation. PT and OT to work with patient. Discuss healthy lifestyle habits. <Noah Mahmood - 04/18/18 13:48>
--- NOTE | 2018-04-17 16:17 | US ---
EXAM DATE: 04/17/2018 4:12 PM EST AGE/SEX: 83 years / Male INDICATIONS: TIA. CLINICAL DATA: This is the patient's initial encounter. Patient reports that signs and symptoms have been present for 1 day and indicates a pain score of 0/10. MEDICAL/SURGICAL HISTORY: Hypertension. Arthroscopy. COMPARISON: No prior exams available for comparison. VELOCITY PARAMETERS: ICA/CCA Ratio: Right 1.5 , Left n/a. ICA: Right 129 cm/sec, Left n/a. Cm/sec CCA: Right 85 cm/sec, Left 81 cm/sec ECA: Right 255 cm/sec, Left 127 cm/sec Vertebral: Right 30 cm/sec antegrade, Left 45 cm/sec antegrade FINDINGS: Examination was technically difficult. There is moderate plaque formation in the common carotid arter ies bilaterally. Unable to achieve color Doppler on the left in the internal carotid artery. CONCLUSION: Technically difficult exam. Unable to obtain color Doppler and the left internal carotid artery. [place] ot exclude occlusion. This would be better evaluated with CTA. No hemodynamically significant stenosi s identified on the right. Electronically signed by: Norberto Bruno MD 04/17/2018 4:15 PM EST
[2018-04-17 17:44] LABS: Chol/HDL Ratio 4.73 Ratio; Thyroid Stimulating Hormone 1.44 uIU/mL (0.358-3.740)
[2018-04-17] MEDS: Sod Chloride 0.9% Inj 1,000 ML IV.CONT SCH (18:52)
[2018-04-17] MEDS: Enoxaparin Inj 40 MG/0.4 ML Syringe SQ SCH (18:52)
--- NOTE | 2018-04-17 18:54 | MR ---
EXAM DATE: 04/17/2018 6:46 PM EST AGE/SEX: 83 years / Male INDICATIONS: Confusion. CLINICAL DATA: This is the patient's initial encounter. Patient reports that signs and symptoms have been present for 1 day and indicates a pain score of 0/10. MEDICAL/SURGICAL HISTORY: Hypertension. BPH. None. COMPARISON: No prior exams available for comparison. TECHNIQUE: 3D [id number] MRA was performed. Source images, multiplanar STS MIP, and 3D volum e MIP reconstructions were reviewed. FINDINGS: There is no flow in the distal left internal carotid artery. There is some reconstitution of flow int o the right middle cerebral artery but this is poor. There is a focal stenosis in the distal left mid dle cerebral artery. The left anterior cerebral artery is patent. Posterior cerebral arteries and the right anterior and right middle cerebral artery are patent. The basilar artery is patent. Left verte bral is dominant. CONCLUSION: 1. Occlusion of the left internal carotid artery with absent flow distally. Poor reconstitution of f low in the left middle cerebral artery with a probable focus stenosis in the distal left MCA. 2. The anterior cerebral, posterior cerebral and right middle cerebral artery are patent. Electronically signed by: Norberto Bruno MD 04/17/2018 6:53 PM EST
--- NOTE | 2018-04-17 18:56 | MR ---
EXAM DATE: 04/17/2018 6:47 PM EST AGE/SEX: 83 years / Male INDICATIONS: Confusion. CLINICAL DATA: This is the patient's initial encounter. Patient reports that signs and symptoms have been present for 1 day and indicates a pain score of 0/10. MEDICAL/SURGICAL HISTORY: Hypertension. BPH. None. COMPARISON: No prior exams available for comparison. TECHNIQUE: Multiplanar, multisequence examination of the brain was performed without contrast. FINDINGS: No associated hemorrhage or mass effect is seen. No hydrocephalus. There are mild to moderate chronic white matter ischemic changes. CONCLUSION: 1. Multiple small acute infarcts in the left hemisphere including in the left occipital lobe and russ p white matter of the left periventricular region all measuring 1 cm or less in diameter. Electronically signed by: Norberto Bruno MD 04/17/2018 6:55 PM EST
[2018-04-17] MEDS: Senna/Docusate Sodium 8.6/50 MG Tablet PO SCH (20:22)
--- NOTE | 2018-04-17 20:37 | CT ---
EXAM DATE: 04/17/2018 7:19 PM EST AGE/SEX: 83 years / Male INDICATIONS: Obstruction, slurred speech 1 week CLINICAL DATA: This is the patient's initial encounter. Patient reports that signs and symptoms have been present for 1 week and indicates a pain score of 0/10. MEDICAL/SURGICAL HISTORY: Hypertension. None. RADIATION DOSE: 27.93 CTDI (mGy) COMPARISON: No prior exams available for comparison. TECHNIQUE: Volumetric scanning was performed using a multirow detector CT scanner during bolus infus ion of 71ML ml Omnipaque 350 (iohexol) nonionic water-soluble contrast as a single exam dose. The data was postprocessed with a variety of visualization algorithms including full-volume maximum inten sity projection, multiplanar sliding thin-slab reformation, curved-planar reformation, and surface-re ndering techniques. Using automated exposure control and adjustment of the mA and/or kV according to patient size, radiation dose was kept as low as reasonably achievable to obtain optimal diagnostic q uality images. DICOM format image data is available electronically for review and comparison. Percent stenosis is calculated using the diameter of the stenotic region over the diameter of the nor mal distal internal carotid artery. FINDINGS: The great vessel origins are patent. Both common carotid arteries are patent. On the left side just above the carotid bifurcation the left internal carotid artery is completely oc cluded. Flow does reconstitute distally in the petrous and cavernous portion. There is moderate plaque at the right carotid bifurcation and there is a focal high-grade approximate ly 70% stenosis in the proximal right internal carotid artery. This is hemodynamically significant co nsidering the findings on the left side of internal carotid occlusion. Both vertebral arteries are patent within the neck. Left vertebral artery is dominant. CONCLUSION: 1. 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 2. High-grade approximately 70% stenosis proximal right internal carotid artery, hemodynamically sig nificant considering findings on the left. Electronically signed by: Norberto Bruno MD 04/17/2018 8:36 PM EST
[2018-04-18 05:37] LABS: Baso % (Auto) 0.3 % (0.0-2.0); Eos # (Auto) 0.2 th/mm3 (0.0-0.4); Eos % (Auto) 1.8 % (0.0-4.0); Hematocrit 41.5 % (39.0-51.0); Hemoglobin 14.5 gm/dL (13.0-17.0); Lymph # (Auto) 1.7 th/mm3 (1.0-4.8); Lymph % (Auto) 18.8 % (9.0-44.0); Mean Corpuscular HGB Conc 34.9 % (32.0-36.0); Mean Corpuscular Hemoglobin 30.4 pg (27.0-34.0); Mean Corpuscular Volume 87.1 fL (80.0-100.0); Mean Platelet Volume 8.2 fL (7.0-11.0); Mono # (Auto) 0.8 th/mm3 (0.0-0.9); Mono % (Auto) 9.3 % (0.0-8.0); Neut # (Auto) 6.3 th/mm3 (1.8-7.7); Neut % (Auto) 69.8 % (16.0-70.0); Platelet Count 193 th/mm3 (150-450); Red Blood Count 4.76 mil/mm3 (4.50-5.90); Red Cell Distribution Width 14.5 % (11.6-17.2)
[2018-04-18 06:01] LABS: Calcium 8.7 mg/dL (8.5-10.1); Carbon Dioxide 26.9 meq/L (21.0-32.0)
[2018-04-18] MEDS: Sod Chloride 0.9% Inj 1,000 ML IV.CONT SCH ×2 (06:34→21:42)
[2018-04-18] MEDS: Senna/Docusate Sodium 8.6/50 MG Tablet PO SCH ×2 (09:26→21:43)
--- NOTE | 2018-04-18 11:50 | ECHRPT ---
Indication: CVA/TIA CONCLUSIONS The left ventricular systolic function is hyperdynamic with an estimated ejection fraction in the ra nge of 65- 70%. Normal left ventricular size. Wall thickness is normal. No regional wall motion abnormalities are present. Aortic valve sclerosis is present. There is trace tricuspid valve regurgitation. The estimated pulmonary arterial pressure is 30 mmHg. BP: / HR: Rhythm: Sinus MEASUREMENTS (Male / Female) Normal Values Technical Quality:Poor 2D ECHO LV Diastolic Diameter PLAX 3.5 cm 4.2 - 5.9 / 3.9 - 5.3 cm LV Systolic Diameter PLAX 2.1 cm IVS Diastolic Thickness 1.0 cm 0.6 - 1.0 / 0.6 - 0.9 cm LVPW Diastolic Thickness 1.0 cm 0.6 - 1.0 / 0.6 - 0.9 cm LV Relative Wall Thickness 0.6 LVOT Diameter 2.3 cm LV Ejection Fraction MOD 4C 60.0 % LV Ejection Fraction 4C AL 61.5 % M-MODE Aortic Root Diameter MM 2.3 cm AV Cusp Separation MM 1.8 cm DOPPLER TR Peak Velocity 223.0 cm/s TR Peak Gradient 19.9 mmHg Right Atrial Pressure 10.0 mmHg Pulmonary Artery Systolic Pressu 29.9 mmHg Right Ventricular Systolic Press 29.9 mmHg PV Peak Velocity 106.0 cm/s PV Peak Gradient 4.5 mmHg FINDINGS LEFT VENTRICLE The left ventricular systolic function is hyperdynamic with an estimated ejection fraction in the ra nge of 65- 70%. Normal left ventricular size. Wall thickness is normal. No regional wall motion abnormalities are present. AORTIC VALVE Trileaflet aortic valve. Aortic valve sclerosis is present. TRICUSPID VALVE Structurally normal tricuspid valve. There is trace tricuspid valve regurgitation. The estimated pulmonary arterial pressure is 29.9 mmHg. Fidencio Bernstein MD, FACC (Electronically Signed) Final Date:18 April 2018 11:49
--- NOTE | 2018-04-18 12:17 | ECG ---
Date Performed: 04/17/2018 Time Performed: 12:31:32 PTAGE: 83 years EKG: Sinus rhythm WITH OCCASIONAL VENTRICULAR PREMATURE COMPLEXES BORDERLINE ECG INTERPRETATION BASED ON A DEFAULT AGE OF 40 YEARS NO PREVIOUS TRACING DOCTOR: Sánchez Boucher Interpretating Date/Time 04/18/2018 12:11:28
--- NOTE | 2018-04-18 14:00 | P.PNFP ---
Subjective Interval history: No acute events overnight. Patient seen and examined this AM. Remains afebrile, vitals stable. Patient states he feels well this morning. Denies any new focal neuro deficit. States he feels as if his speech is improved since admission. He reports some difficulty using his utensils while eating this morning. Denies fevers, CP, dyspnea, confusion, dizziness or lightheadedness. <Stefan Butterfield - 04/18/18 14:14> Results - Labs Result diagrams: 04/18/18 05:30 04/18/18 05:30 <Noah Mahmood - 04/18/18 15:47> Abnormal lab results 04/17/18 04/17/18 04/18/18 Range/Units 12:53 20:16 05:30 [place] % (Auto) 9.3 H (0.0-8.0) % BUN (7-18) mg/dL Estimated GFR (>89) mL/min POC Glucose 138 H (68-110) mg/dl Triglycerides 240 H (42-150) mg/dL LDL Cholesterol, Calc 105 H (0-99) mg/dL 04/18/18 04/18/18 04/18/18 Range/Units 05:30 07:45 11:15 [place] % (Auto) (0.0-8.0) % BUN 19 H (7-18) mg/dL Estimated GFR 76 L (>89) mL/min POC Glucose 121 H 123 H (68-110) mg/dl Triglycerides (42-150) mg/dL LDL Cholesterol, Calc (0-99) mg/dL Short CBC 04/18/18 Range/Units 05:30 WBC 9.0 (4.0-11.0) th/mm3 Hgb 14.5 (13.0-17.0) gm/dL Hct 41.5 (39.0-51.0) % Plt Count 193 (150-450) th/mm3 BMP 04/18/18 05:30 Sodium 140 Potassium 4.0 Chloride 102 Carbon Dioxide 26.9 BUN 19 H Creatinine 0.95 Calcium 8.7 <Noah Mahmood - 04/18/18 15:47> Abnormal lab results 04/17/18 04/17/18 04/17/18 Range/Units 12:53 12:53 14:32 [place] % (Auto) (0.0-8.0) % BUN (7-18) mg/dL Estimated GFR (>89) mL/min POC Glucose (68-110) mg/dl Troponin I Less than 0.02 L (0.02-0.05) ng/mL Triglycerides 240 H (42-150) mg/dL LDL Cholesterol, Calc 105 H (0-99) mg/dL Urine Mucus Few H (Occasional) /lpf 04/17/18 04/18/18 04/18/18 Range/Units 20:16 05:30 05:30 [place] % (Auto) 9.3 H (0.0-8.0) % BUN 19 H (7-18) mg/dL Estimated GFR 76 L (>89) mL/min POC Glucose 138 H (68-110) mg/dl Troponin I (0.02-0.05) ng/mL Triglycerides (42-150) mg/dL LDL Cholesterol, Calc (0-99) mg/dL Urine Mucus (Occasional) /lpf 04/18/18 04/18/18 Range/Units 07:45 11:15 [place] % (Auto) (0.0-8.0) % BUN (7-18) mg/dL Estimated GFR (>89) mL/min POC Glucose 121 H 123 H (68-110) mg/dl Troponin I (0.02-0.05) ng/mL Triglycerides (42-150) mg/dL LDL Cholesterol, Calc (0-99) mg/dL Urine Mucus (Occasional) /lpf Short CBC 04/18/18 Range/Units 05:30 WBC 9.0 (4.0-11.0) th/mm3 Hgb 14.5 (13.0-17.0) gm/dL Hct 41.5 (39.0-51.0) % Plt Count 193 (150-450) th/mm3 BMP 04/18/18 05:30 Sodium 140 Potassium 4.0 Chloride 102 Carbon Dioxide 26.9 BUN 19 H Creatinine 0.95 Calcium 8.7 Cardiac Enzymes 04/17/18 Range/Units 12:53 Troponin I Less than 0.02 L (0.02-0.05) ng/mL Liver Function 04/17/18 Range/Units 12:53 Total Bilirubin 0.4 (0.2-1.0) mg/dL Alkaline Phosphatase 59 (45-117) U/L Urine 04/17/18 Range/Units 14:32 Urine Color Straw (Yellw/Straw) Urine Clarity Clear (Clear) Urine pH 6.0 (5.0-8.5) Ur Specific [place] 1.008 (1.002-1.035) Urine Protein Negative (Neg-Trace) mg/dL Urine Glucose (UA) Negative (Negative) mg/dL <GilesstephenYao bergmansh - 04/18/18 14:00> - Imaging Impressions Carotid Doppler Study 04/17/18 00:00 CONCLUSION: Technically difficult exam. Unable to obtain color Doppler and the left internal carotid artery. Cannot exclude occlusion. This would be better evaluated with CTA. No hemodynamically significant stenosis identified on the right. Neck CTA 04/17/18 00:00 CONCLUSION: 1. 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 2. High-grade approximately 70% stenosis proximal right internal carotid artery , hemodynamically significant considering findings on the left. Head MRI 04/17/18 15:19 CONCLUSION: 1. Multiple small acute infarcts in the left hemisphere including in the left occipital lobe and deep white matter of the left periventricular region all measuring 1 cm or less in diameter. Head MRA 04/17/18 15:19 CONCLUSION: 1. Occlusion of the left internal carotid artery with absent flow distally. Poor reconstitution of flow in the left middle cerebral artery with a probable focus stenosis in the distal left MCA. 2. The anterior cerebral, posterior cerebral and right middle cerebral artery are patent. <TimoteoNoah Addis - 04/18/18 15:47> Impressions Carotid Doppler Study 04/17/18 00:00 CONCLUSION: Technically difficult exam. Unable to obtain color Doppler and the left internal carotid artery. Cannot exclude occlusion. This would be better evaluated with CTA. No hemodynamically significant stenosis identified on the right. Neck CTA 04/17/18 00:00 CONCLUSION: 1. 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 2. High-grade approximately 70% stenosis proximal right internal carotid artery , hemodynamically significant considering findings on the left. Head MRI 04/17/18 15:19 CONCLUSION: 1. Multiple small acute infarcts in the left hemisphere including in the left occipital lobe and deep white matter of the left periventricular region all measuring 1 cm or less in diameter. Head MRA 11/11/18 15:19 CONCLUSION: 1. Occlusion of the left internal carotid artery with absent flow distally. Poor reconstitution of flow in the left middle cerebral artery with a probable focus stenosis in the distal left MCA. 2. The anterior cerebral, posterior cerebral and right middle cerebral artery are patent. <Stefan Butterfield - 04/18/18 14:14> Physical Exam Vital signs: Vital Signs 04/17/18 16:00 04/17/18 20:00 04/18/18 00:00 Temperature 98.8 F 98.3 F 98.3 F Pulse Rate 81 89 79 Respiratory Rate 18 18 20 Blood Pressure 162/77 H 142/63 H 112/67 Pulse Oximetry 96 97 96 04/18/18 04:00 04/18/18 08:00 04/18/18 12:00 Temperature 97.7 F 97.4 F L 98.2 F Pulse Rate 81 74 82 Respiratory Rate 17 14 16 Blood Pressure 145/78 H 145/76 H 137/82 Pulse Oximetry 97 95 97 Intake & Output 04/17/18 04/18/18 04/18/18 18:59 06:59 18:59 Intake Total 945 / 945 Balance 945 / 945 Weight 88.6 kg 88.5 kg Intake: IV 945 / 945 NS Inj 1,000 ML @ 84 mls/hr IV. 945 / 945 CONT .[id number] [facility] Rx#:[id number] Other: # Voids 3 Date of Last Bowel Movement 04/17/18 04/17/18 Weight On Admission 88.6 kg <Noah Mahmood - 04/18/18 15:47> Vital Signs 04/17/18 14:23 04/17/18 16:00 04/17/18 20:00 Temperature 98.8 F 98.3 F Pulse Rate 82 81 89 Respiratory Rate 18 18 Blood Pressure 141/72 H 162/77 H 142/63 H Pulse Oximetry 96 97 04/18/18 00:00 04/18/18 04:00 04/18/18 08:00 Temperature 98.3 F 97.7 F 97.4 F L Pulse Rate 79 81 74 Respiratory Rate 20 17 14 Blood Pressure 112/67 145/78 H 145/76 H Pulse Oximetry 96 97 95 Intake & Output 04/17/18 04/18/18 04/18/18 18:59 06:59 18:59 Intake Total 945 / 945 Balance 945 / 945 Weight 88.6 kg 88.5 kg Intake: IV 945 / 945 NS Inj 1,000 ML @ 84 mls/hr IV. 945 / 945 CONT .[id number] [facility] Rx#:[id number] Other: # Voids 3 Date of Last Bowel Movement 04/17/18 04/17/18 Weight On Admission 88.6 kg <Stefan Butterfield - 04/18/18 14:00> Narrative: GENERAL: NAD, lying comfortably in bed SKIN: Warm and dry. HEAD: Atraumatic. Normocephalic. No facial asymmetry noted. EYES: Pupils equal and round. EOMI. No scleral icterus. No injection or drainage. ENT: No nasal bleeding or discharge. Mucous membranes pink and moist. NECK: Trachea midline. No JVD. CARDIOVASCULAR: Regular rate and rhythm. Soft bruit of R carotid. RESPIRATORY: No accessory muscle use. Clear to auscultation. Breath sounds equal bilaterally. GASTROINTESTINAL: Abdomen soft, non-tender, nondistended. Hepatic and splenic margins not palpable. MUSCULOSKELETAL: Extremities without clubbing, cyanosis, or edema. No obvious deformities. NEUROLOGICAL: Awake and alert. parachute taper 2-12 intact. Motor grossly within normal limits. Five out of 5 muscle strength in the arms and legs. Normal speech. No pronator drift. Some difficulty with finger to nose but appears intact. PSYCHIATRIC: Appropriate mood and affect; insight and judgment normal. <Stefan Butterfield - 04/18/18 14:14> Assessment and Plan - Assessment (1) Acute CVA (cerebrovascular accident) Code(s): I63.9 - Cerebral infarction, unspecified Status: Acute (2) Internal carotid artery stenosis Code(s): I65.29 - Occlusion and stenosis of unspecified carotid artery Status : Acute (3) Hypertension Code(s): I10 - Essential (primary) hypertension Status: Acute (4) Nutrition, metabolism, and development symptoms Code(s): R63.8 - Other symptoms and signs concerning food and fluid intake Status: Acute <Noah Mahmood - 04/18/18 15:47> (1) Acute CVA (cerebrovascular accident) Code(s): I63.9 - Cerebral infarction, unspecified Status: Acute Plan: 83-year-old male past medical history of hypertension presented with right- sided weakness and difficulty with speech. Weakness began 2 days prior to admission. [place] that he has had increasing fatigue and difficulty speech for 3 weeks. Found to have multiple small acute infarcts in the left hemisphere CT head: Chronic microvascular disease, patchy white matter disease -Neurology consult, appreciate recommendations -PT consult -Consulted OT as patient is reporting some difficulty with fine movements of his hands -Neuroimaging as above, MRI brain showing multiple small acute infarcts in the left hemisphere including in the left occipital lobe and deep white matter of the left periventricular region all measuring 1 cm or less in diameter. -2D echo showing LV systolic function hyperdynamic with and eEF of 65-70%, no regional wall motion abnormalities -Neuro checks q4hrs -Continue Atorvastatin 80 and aspirin 81 mg Continuous cardiac telemetry (2) Internal carotid artery stenosis Code(s): I65.29 - Occlusion and stenosis of unspecified carotid artery Status : Acute Plan: Neck CTA showing high-grade 70% stenosis of the proximal right ICA Vascular surgery consulted (3) Hypertension Code(s): I10 - Essential (primary) hypertension Status: Acute Plan: Currently holding home meds volsartan-HCTZ for permissive HTN BPs ranging 110s-160s/60s-70s since admission -Clonidine 0.1mg PRN BP>220/120 (4) Nutrition, metabolism, and development symptoms Code(s): R63.8 - Other symptoms and signs concerning food and fluid intake Status: Acute Plan: Fluids: per PO Diet: Cardiac diet Electolytes: Monitor and replete as needed DVT ppx: lovenox <Stefan Butterfield - 04/18/18 14:07> - Attending Attestation The exam, history, and the medical decision-making described in the above note were completed with the assistance of the resident physician. I reviewed and agree with the findings presented. I attest that I had a [id number] encounter with the patient on the same day, and personally performed and documented my assessment and findings in the medical record. Patient seen with resident team this morning. He feels better compared to yesterday. Right sided weakness much improved. No facial drooping. Minimal slurring, minimal word finding difficulty. Noted mild difficulty using eating utensils, will consult occupational therapy for assistance. He has significant carotid artery stenosis which may have contributed to CVA. Will consult vascular surgery for further recommendations, may benefit from carotid endarterectomy depending on cost- benefit analysis. Telemetry checked, no evidence of atrial fibrillation. Neurology is on board, appreciate their assistance with management. He is on antiplatelet therapy with aspirin plus a high dose statin. Lifestyle measures to help prevent future strokes discussed at length. Physical therapy helping to assess rehab needs. <Noah Mahmood - 04/18/18 15:47>
--- NOTE | 2018-04-18 17:05 | P.PNVS ---
Subjective Subjective/Hospital Course: 04/18/2018 Consult received Will evaluate patient today Thanks J Objective Vital Signs / I&O: Vital Signs 04/17/18 20:00 04/18/18 00:00 04/18/18 04:00 Temperature 98.3 F 98.3 F 97.7 F Pulse Rate 89 79 81 Respiratory Rate 18 20 17 Blood Pressure 142/63 H 112/67 145/78 H Pulse Oximetry 97 96 97 04/18/18 08:00 04/18/18 12:00 Temperature 97.4 F L 98.2 F Pulse Rate 74 82 Respiratory Rate 14 16 Blood Pressure 145/76 H 137/82 Pulse Oximetry 95 97 Intake & Output 04/17/18 04/18/18 04/18/18 18:59 06:59 18:59 Intake Total 945 / 945 Balance 945 / 945 Weight 88.6 kg 88.5 kg Intake: IV 945 / 945 NS Inj 1,000 ML @ 84 mls/hr IV. 945 / 945 CONT .[id number] [facility] Rx#:[id number] Other: # Voids 3 Date of Last Bowel Movement 04/17/18 04/17/18 Weight On Admission 88.6 kg Laboratory Results - last 24 hr 04/17/18 04/17/18 04/18/18 12:53 20:16 05:30 WBC 9.0 RBC 4.76 Hgb 14.5 Hct 41.5 MCV 87.1 MCH 30.4 MCHC 34.9 RDW 14.5 Plt Count 193 MPV 8.2 Neut % (Auto) 69.8 Lymph % (Auto) 18.8 [place] % (Auto) 9.3 H Eos % (Auto) 1.8 Baso % (Auto) 0.3 Neut # (Auto) 6.3 Lymph # (Auto) 1.7 [place] # (Auto) 0.8 Eos # (Auto) 0.2 Baso # (Auto) 0.0 WBC Differential . Differential Comment Auto diff final Sodium Potassium Chloride Carbon Dioxide Anion Gap BUN Creatinine Estimated GFR POC Glucose 138 H Random Glucose Calcium Triglycerides 240 H Cholesterol 194 LDL Cholesterol, Calc 105 H HDL Cholesterol 41.0 Cholesterol/HDL Ratio 4.73 TSH 1.440 04/18/18 04/18/18 04/18/18 05:30 07:45 11:15 WBC RBC Hgb Hct MCV MCH MCHC RDW Plt Count MPV Neut % (Auto) Lymph % (Auto) [place] % (Auto) Eos % (Auto) Baso % (Auto) Neut # (Auto) Lymph # (Auto) [place] # (Auto) Eos # (Auto) Baso # (Auto) WBC Differential Differential Comment Sodium 140 Potassium 4.0 Chloride 102 Carbon Dioxide 26.9 Anion Gap 11 BUN 19 H Creatinine 0.95 Estimated GFR 76 L POC Glucose 121 H 123 H Random Glucose 101 Calcium 8.7 Triglycerides Cholesterol LDL Cholesterol, Calc HDL Cholesterol Cholesterol/HDL Ratio TSH Impressions Carotid Doppler Study 04/17/18 00:00 CONCLUSION: Technically difficult exam. Unable to obtain color Doppler and the left internal carotid artery. Cannot exclude occlusion. This would be better evaluated with CTA. No hemodynamically significant stenosis identified on the right. Neck CTA 04/17/18 00:00 CONCLUSION: 1. 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 2. High-grade approximately 70% stenosis proximal right internal carotid artery , hemodynamically significant considering findings on the left. Head CT 04/17/18 12:44 CONCLUSION: 1. Patchy white matter disease. . Head MRI 04/17/18 15:19 CONCLUSION: 1. Multiple small acute infarcts in the left hemisphere including in the left occipital lobe and deep white matter of the left periventricular region all measuring 1 cm or less in diameter. Head MRA 04/17/18 15:19 CONCLUSION: 1. Occlusion of the left internal carotid artery with absent flow distally. Poor reconstitution of flow in the left middle cerebral artery with a probable focus stenosis in the distal left MCA. 2. The anterior cerebral, posterior cerebral and right middle cerebral artery are patent.
[2018-04-18] MEDS: Enoxaparin Inj 40 MG/0.4 ML Syringe SQ SCH (17:23)
--- NOTE | 2018-04-18 19:44 | MB ---
cc: Scot Oakes MD DATE: 04/18/2018 CONSULTING PHYSICIAN: Scot Oakes MD of vascular surgery. REASON FOR CONSULTATION: Left internal carotid artery occlusion, right internal artery stenosis over 70%, left hemispheric stroke, hypertension. CRITICAL CARE TIME: 34 minutes. HISTORY OF PRESENT DISEASE: This 83-year-old gentleman presents to the hospital with about 2-day history of weakness and difficulty with speech slurring some words and noted difficulty performing simple mathematical calculations. He was noted to have some blurriness in the vision of the right eye with a veil coming down to his eye from lateral to medial, but that resolved in the form on amaurosis fugax. He also noted some weakness in his right hand. He was worked up and found to have left internal artery occlusion and right internal hemodynamically significant stenosis about 70-80%. Hence the consultation. PAST MEDICAL HISTORY: Hypertension and benign prostatic hypertrophy. SURGICAL HISTORY: Negative. MEDICATIONS: Several for hypertension. ALLERGIES: NO ALLERGIES. PHYSICAL EXAMINATION: GENERAL: Reveals a pleasant 83-year-old gentleman appearing younger than his actual age. HEENT: Normocephalic. No trauma to the head. Pupils equal, reactive. Extraocular muscles intact. There is slight droop of the right side of the face. NECK: Bilateral low carotid pulses. On the right side, the patient has a bruit. On the left side, none. LUNGS: Bilateral breath sounds. HEART: Irregular rhythm. ABDOMEN: Soft. Active bowel sounds. No rebound, no guarding, no masses. EXTREMITIES: The patient has actually palpable femoral, popliteal, dorsalis pedis and posterior tibial pulses. He has no signs of acute vascular deficit. NEUROLOGIC: The patient as above noted facial droop that is slightly prominent on the right. He has slight slurring of speech. Motor strength is slightly decreased in the right arm and there is some drift of the right arm. Slight lateralization. Legs bilaterally equal strength +4. 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 IMPRESSION AND RECOMMENDATIONS: This gentleman has left internal carotid artery occlusion and then on the cerebral angiogram, on MRI, he also has disease in the middle cerebral artery up in the skull. Based on this, I believe that the patient has suffered left hemispheric stroke, but there are some foci of ischemic disease, probably from before. As far as the right carotid artery is concerned, patient does have over 70% stenosis. Based on all of the above, my recommendation will be as follows. We can fix the left side. This is occluded and there is nothing to do about this. However, the patient does have significant right internal carotid artery stenosis, which in the face of left occlusion becomes more of an urgent problem than it would be otherwise. Therefore, I recommended the patient is placed on Plavix, which I have done, stay in the hospital for a few days, and somewhere by the middle of the end of the week, we should proceed with a right carotid endarterectomy. I have explained the risks and benefits to the patient and clearly increased risk of stroke considering that the other side is occluded, but I believe with a functional and otherwise healthy patient, this is the best way to go. I thank you very much for referral. I am planning to take the patient to the operating room Wednesday or . MD EMILY Wills/melissa , 06:42 PM , 06:53 PM
--- NOTE | 2018-04-18 21:06 | MB ---
cc: Brayan Dang MD, PhD DATE: 04/18/2018 REASON FOR CONSULTATION: Stroke. HISTORY OF PRESENT ILLNESS: Mr. Barber has an 83-year-old right-handed man who noted right-sided weakness for the past 2 days and trouble with speech with getting words out. About 3 weeks ago, he had a spell where he had difficulty finding words, but it resolved and had some visual changes about a week ago with blurred vision in the right side. Yesterday morning, he noticed weakness on the right with difficulty grabbing things with the right hand and weakness of the right leg with difficulty getting words out. PAST MEDICAL HISTORY: He has got a history of BPH, hypertension. MEDICINES AT HOME: He takes valsartan, HCTZ, Aleve and tamsulosin. CURRENT MEDICATIONS: Aspirin 81 mg daily, Lipitor 80 mg daily, Plavix 75 mg daily, Lovenox 40 mg subcutaneous daily, Colace, Senokot. NEUROLOGICAL EXAMINATION: VITAL SIGNS: Blood pressure is 145/78, pulse 81, respirations 17, temperature is 97.7 degrees. HIGHER CORTICAL FUNCTION: Alert. He has a mild expressive aphasia. Follows commands well. CRANIAL NERVES: Right upper motor nerve VII palsy, which is mild. MOTOR EXAM: He is mildly weak in the right arm and right leg at 4+/5 with normal strength on the left. Reflexes are 2+ symmetric in the upper and lower extremities. CT of the head shows chronic ischemic change, no acute change present. MRI of the brain: Multiple small acute infarcts in the left hemisphere including left occipital lobe and deep white matter of the left periventricular region. No hemorrhage identified. MRA of the head: Occlusion the left internal carotid artery with absent flow distally, probable focal stenosis of the distal left MCA. CT angiogram: Complete occlusion of the left internal carotid artery flow reconstitutes distally in the petrous and cavernous portion. There is focal high-grade stenosis, 70% right internal carotid artery, thought to be hemodynamically significant considering findings on the left. LABORATORY DATA: White count 9500, hemoglobin 15.3, hematocrit 43.3%, platelets 200,000. PT 10.4, INR 1. Sodium is 138, potassium 4.1, chloride 101, CO2 of 25.5, BUN is 24, creatinine 1.16, glucose is 138. Cholesterol 240, her cholesterol 194, LDL 105. IMPRESSION: 1. Left hemisphere stroke. 2. Occlusion of the left carotid artery. 3. High-grade stenosis of the right carotid artery. PLAN: We would recommend that maintaining the patient at bed rest. I also recommend vascular surgery consultation and I see that Dr. Oakes has evaluated the patient and I agree with his findings. Brayan Dang MD, PhD ALEKSANDER/devan , 07:11 PM , 07:20 PM
[2018-04-19] MEDS: Sod Chloride 0.9% Inj 1,000 ML IV.CONT SCH ×2 (06:36→17:00)
[2018-04-19] MEDS: Senna/Docusate Sodium 8.6/50 MG Tablet PO SCH ×2 (08:20→20:49)
[2018-04-19] MEDS ORDERED: HYDROCHLOROTHIAZIDE PO SCH (08:45)
[2018-04-19] MEDS ORDERED: VALSARTAN PO SCH (08:45)
[2018-04-19] MEDS ORDERED: [UNRECOGNIZED DRUG - OTHER] PO SCH (08:45)
[2018-04-19 09:35] LABS: Baso % (Auto) 0.4 % (0.0-2.0); Eos # (Auto) 0.2 th/mm3 (0.0-0.4); Eos % (Auto) 2.4 % (0.0-4.0); Hematocrit 43.5 % (39.0-51.0); Hemoglobin 14.7 gm/dL (13.0-17.0); Lymph # (Auto) 1.7 th/mm3 (1.0-4.8); Lymph % (Auto) 20.2 % (9.0-44.0); Mean Corpuscular HGB Conc 33.8 % (32.0-36.0); Mean Corpuscular Hemoglobin 29.9 pg (27.0-34.0); Mean Corpuscular Volume 88.4 fL (80.0-100.0); Mean Platelet Volume 8.2 fL (7.0-11.0); Mono # (Auto) 0.7 th/mm3 (0.0-0.9); Mono % (Auto) 8.7 % (0.0-8.0); Neut # (Auto) 5.8 th/mm3 (1.8-7.7); Neut % (Auto) 68.3 % (16.0-70.0); Platelet Count 188 th/mm3 (150-450); Red Blood Count 4.91 mil/mm3 (4.50-5.90); Red Cell Distribution Width 14.2 % (11.6-17.2); White Blood Count 8.5 th/mm3 (4.0-11.0)
[2018-04-19 09:55] LABS: Calcium 8.5 mg/dL (8.5-10.1); Carbon Dioxide 23.7 meq/L (21.0-32.0); Potassium 3.9 meq/L (3.5-5.1)
--- NOTE | 2018-04-19 10:30 | P.PNVS ---
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 Based on this, I believe that the patient has suffered left hemispheric stroke, but there are some foci of ischemic disease, probably from before. In addition the patient has right carotid artery 70% stenosis. Based on all of the above, my recommendation will be as follows. We can't fix the left side. This is occluded and there is nothing to do about this. However, the patient does have significant right internal carotid artery stenosis, which in the face of left occlusion becomes more of an urgent problem than it would be otherwise. Therefore, I recommended the patient is placed on Plavix, which I have done, stay in the hospital for a few days, and somewhere by the middle of the end of the week, we should proceed with a right carotid endarterectomy. I have explained the risks and benefits to the patient and clearly increased risk of stroke considering that the other side is occluded, but I believe with a functional and otherwise healthy patient, this is the best way to go. Right carotid endarterectomy at this point becomes fairly urgent issue considering that this is the only remaining major blood supply to the brain other than small vertebral arteries. All things equal I expect to go ahead with right carotid endarterectomy tomorrow Fully agree with Dr. Dang's evaluation Objective Vital Signs / I&O: Vital Signs 04/18/18 12:00 04/18/18 16:00 04/18/18 20:00 Temperature 98.2 F 98.7 F 98.2 F Pulse Rate 82 77 82 Respiratory Rate 16 16 18 Blood Pressure 137/82 138/63 146/70 H Pulse Oximetry 97 99 97 04/19/18 00:00 04/19/18 04:00 04/19/18 08:00 Temperature 97.6 F 97.6 F 97.8 F Pulse Rate 73 79 72 Respiratory Rate 18 18 16 Blood Pressure 140/70 142/71 H 133/77 Pulse Oximetry 95 98 97 Intake & Output 04/18/18 04/19/18 04/19/18 18:59 06:59 18:59 Intake Total 2200 / 2200 1000 / 1000 Balance 2200 / 2200 1000 / 1000 Weight 89.4 kg Intake: IV 1000 / 1000 1000 / 1000 NS Inj 1,000 ML @ 84 mls/hr IV. 1000 / 1000 1000 / 1000 CONT .[id number] [facility] Rx#:[id number] Oral 1200 / 1200 Other: # Voids 4 3 Date of Last Bowel Movement 04/17/18 04/16/18 04/15/18 Laboratory Results - last 24 hr 04/18/18 04/18/18 04/19/18 11:15 20:19 07:41 WBC RBC Hgb Hct MCV MCH MCHC RDW Plt Count MPV Neut % (Auto) Lymph % (Auto) [place] % (Auto) Eos % (Auto) Baso % (Auto) Neut # (Auto) Lymph # (Auto) [place] # (Auto) Eos # (Auto) Baso # (Auto) WBC Differential Differential Comment Sodium Potassium Chloride Carbon Dioxide Anion Gap BUN Creatinine Estimated GFR POC Glucose 123 H 116 H 110 Random Glucose Calcium 04/19/18 04/19/18 08:25 08:25 WBC 8.5 RBC 4.91 Hgb 14.7 Hct 43.5 MCV 88.4 MCH 29.9 MCHC 33.8 RDW 14.2 Plt Count 188 MPV 8.2 Neut % (Auto) 68.3 Lymph % (Auto) 20.2 [place] % (Auto) 8.7 H Eos % (Auto) 2.4 Baso % (Auto) 0.4 Neut # (Auto) 5.8 Lymph # (Auto) 1.7 [place] # (Auto) 0.7 Eos # (Auto) 0.2 Baso # (Auto) 0.0 WBC Differential . Differential Comment Auto diff final Sodium 138 Potassium 3.9 Chloride 106 Carbon Dioxide 23.7 Anion Gap 8 BUN 18 Creatinine 0.88 Estimated GFR 83 L POC Glucose Random Glucose 105 Calcium 8.5 Impressions Carotid Doppler Study 04/17/18 00:00 CONCLUSION: Technically difficult exam. Unable to obtain color Doppler and the left internal carotid artery. Cannot exclude occlusion. This would be better evaluated with CTA. No hemodynamically significant stenosis identified on the right. Neck CTA 04/17/18 00:00 CONCLUSION: 1. 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 2. High-grade approximately 70% stenosis proximal right internal carotid artery , hemodynamically significant considering findings on the left. Head CT 04/17/18 12:44 CONCLUSION: 1. Patchy white matter disease. . Head MRI 04/17/18 15:19 CONCLUSION: 1. Multiple small acute infarcts in the left hemisphere including in the left occipital lobe and deep white matter of the left periventricular region all measuring 1 cm or less in diameter. Head MRA 04/17/18 15:19 CONCLUSION: 1. Occlusion of the left internal carotid artery with absent flow distally. Poor reconstitution of flow in the left middle cerebral artery with a probable focus stenosis in the distal left MCA. 2. The anterior cerebral, posterior cerebral and right middle cerebral artery are patent.
[2018-04-19] MEDS: hydroCHLOROthiazide 25 MG Tablet PO SCH (12:43)
--- NOTE | 2018-04-19 14:54 | P.PNFP ---
Subjective Interval history: Patient has no complaints this morning. He said he slept well through the night and feels like his speech and strength are improving. He also reports no changes or issues with his vision. He denies any chest pain or shortness of breath. Patient is eating and swallowing well. <CarRegine C - 04/19/18 14:54> Results - Labs Result diagrams: 04/19/18 08:25 04/19/18 08:25 <Noah Mahmood - 04/19/18 17:26> Abnormal lab results 04/18/18 04/19/18 04/19/18 Range/Units 20:19 08:25 08:25 [place] % (Auto) 8.7 H (0.0-8.0) % Estimated GFR 83 L (>89) mL/min POC Glucose 116 H (68-110) mg/dl MTS Gel Crossmatch 04/19/18 Range/Units 14:19 [place] % (Auto) (0.0-8.0) % Estimated GFR (>89) mL/min POC Glucose (68-110) mg/dl MTS Gel Crossmatch See Detail Short CBC 04/19/18 Range/Units 08:25 WBC 8.5 (4.0-11.0) th/mm3 Hgb 14.7 (13.0-17.0) gm/dL Hct 43.5 (39.0-51.0) % Plt Count 188 (150-450) th/mm3 [facility] 04/19/18 08:25 Sodium 138 Potassium 3.9 Chloride 106 Carbon Dioxide 23.7 BUN 18 Creatinine 0.88 Calcium 8.5 <Noah Mahmood - 04/19/18 17:26> Abnormal lab results 04/18/18 04/19/18 04/19/18 Range/Units 20:19 08:25 08:25 [place] % (Auto) 8.7 H (0.0-8.0) % Estimated GFR 83 L (>89) mL/min POC Glucose 116 H (68-110) mg/dl Short CBC 04/19/18 Range/Units 08:25 WBC 8.5 (4.0-11.0) th/mm3 Hgb 14.7 (13.0-17.0) gm/dL Hct 43.5 (39.0-51.0) % Plt Count 188 (150-450) th/mm3 [facility] 04/19/18 08:25 Sodium 138 Potassium 3.9 Chloride 106 Carbon Dioxide 23.7 BUN 18 Creatinine 0.88 Calcium 8.5 <Regine Yoon C - 04/19/18 14:54> Physical Exam Vital signs: Vital Signs 04/18/18 20:00 04/19/18 00:00 04/19/18 04:00 Temperature 98.2 F 97.6 F 97.6 F Pulse Rate 82 73 79 Respiratory Rate 18 18 18 Blood Pressure 146/70 H 140/70 142/71 H Pulse Oximetry 97 95 98 04/19/18 08:00 04/19/18 12:00 04/19/18 16:00 Temperature 97.8 F 97.4 F L 98.1 F Pulse Rate 72 73 72 Respiratory Rate 16 16 16 Blood Pressure 133/77 158/106 H 128/65 Pulse Oximetry 97 96 94 L Intake & Output 04/18/18 04/19/18 04/19/18 18:59 06:59 18:59 Intake Total 2200 / 2200 1000 / 1000 Balance 2200 / 2200 1000 / 1000 Weight 89.4 kg Intake: IV 1000 / 1000 1000 / 1000 NS Inj 1,000 ML @ 84 mls/hr IV. 1000 / 1000 1000 / 1000 CONT .[id number] [facility] Rx#:[id number] Oral 1200 / 1200 Other: # Voids 4 3 Date of Last Bowel Movement 04/17/18 04/16/18 04/15/18 <Noah Mahmood L - 04/19/18 17:26> Vital Signs 04/18/18 16:00 04/18/18 20:00 04/19/18 00:00 Temperature 98.7 F 98.2 F 97.6 F Pulse Rate 77 82 73 Respiratory Rate 16 18 18 Blood Pressure 138/63 146/70 H 140/70 Pulse Oximetry 99 97 95 04/19/18 04:00 04/19/18 08:00 04/19/18 12:00 Temperature 97.6 F 97.8 F 97.4 F L Pulse Rate 79 72 73 Respiratory Rate 18 16 16 Blood Pressure 142/71 H 133/77 158/106 H Pulse Oximetry 98 97 96 Intake & Output 04/18/18 04/19/18 04/19/18 18:59 06:59 18:59 Intake Total 2200 / 2200 1000 / 1000 Balance 2200 / 2200 1000 / 1000 Weight 89.4 kg Intake: IV 1000 / 1000 1000 / 1000 NS Inj 1,000 ML @ 84 mls/hr IV. 1000 / 1000 1000 / 1000 CONT .[id number] [facility] Rx#:[id number] Oral 1200 / 1200 Other: # Voids 4 3 Date of Last Bowel Movement 04/17/18 04/16/18 04/15/18 <Regine Yoon Rich - 04/19/18 14:54> Narrative: GENERAL: NAD, lying comfortably in bed SKIN: Warm and dry. HEAD: Atraumatic. Normocephalic. No facial asymmetry noted. EYES: Pupils equal and round. EOMI. No scleral icterus. No injection or drainage. ENT: No nasal bleeding or discharge. Mucous membranes pink and moist. NECK: Trachea midline. No JVD. CARDIOVASCULAR: Regular rate and rhythm. Soft bruit of R carotid. RESPIRATORY: No accessory muscle use. Clear to auscultation. Breath sounds equal bilaterally. GASTROINTESTINAL: Abdomen soft, non-tender, nondistended. Hepatic and splenic margins not palpable. MUSCULOSKELETAL: Extremities without clubbing, cyanosis, or edema. No obvious deformities. NEUROLOGICAL: Awake and alert. 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 Motor grossly within normal limits. Five out of 5 muscle strength in the arms and legs. Normal speech. No pronator drift. PSYCHIATRIC: Appropriate mood and affect; insight and judgment normal. <Vance Yoonmaksim Villanueva - 04/19/18 14:54> Assessment and Plan - Assessment (1) Acute CVA (cerebrovascular accident) Code(s): I63.9 - Cerebral infarction, unspecified Status: Acute (2) Internal carotid artery stenosis Code(s): I65.29 - Occlusion and stenosis of unspecified carotid artery Status : Acute (3) Hypertension Code(s): I10 - Essential (primary) hypertension Status: Acute (4) Nutrition, metabolism, and development symptoms Code(s): R63.8 - Other symptoms and signs concerning food and fluid intake Status: Acute <Noah Mahmood - 04/19/18 17:26> (1) Acute CVA (cerebrovascular accident) Code(s): I63.9 - Cerebral infarction, unspecified Status: Acute Plan: 83-year-old male past medical history of hypertension presented with right- sided weakness and difficulty with speech. Weakness began 2 days prior to admission. [place] that he has had increasing fatigue and difficulty speech for 3 weeks. Found to have multiple small acute infarcts in the left hemisphere CT head: Chronic microvascular disease, patchy white matter disease -Neurology consult: Recommended bedrest and deferred to vascular for any intervention at this time. -PT consult -Consulted OT as patient is reporting some difficulty with fine movements of his hands -Neuroimaging as above, MRI brain showing multiple small acute infarcts in the left hemisphere including in the left occipital lobe and deep white matter of the left periventricular region all measuring 1 cm or less in diameter. -2D echo showing LV systolic function hyperdynamic with and eEF of 65-70%, no regional wall motion abnormalities -Neuro checks q4hrs -Continue Atorvastatin 80 and aspirin 81 mg; started Plavix 75 mg daily Continuous cardiac telemetry (2) Internal carotid artery stenosis Code(s): I65.29 - Occlusion and stenosis of unspecified carotid artery Status : Acute Plan: Neck CTA showing high-grade 70% stenosis of the proximal right ICA Vascular surgery consulted: Recommended starting Plavix daily and then mid week performing a right carotid endarterectomy (3) Hypertension Code(s): I10 - Essential (primary) hypertension Status: Acute Plan: BPs ranging 110s-160s/60s-70s since admission -Clonidine 0.1mg PRN BP>220/120 -Resumed home meds of losartan HCTZ (4) Nutrition, metabolism, and development symptoms Code(s): R63.8 - Other symptoms and signs concerning food and fluid intake Status: Acute Plan: Fluids: per PO Diet: Cardiac diet Electolytes: Monitor and replete as needed DVT ppx: lovenox <Regine Yoon - 04/19/18 14:48> - Attending Attestation The exam, history, and the medical decision-making described in the above note were completed with the assistance of the resident physician. I reviewed and agree with the findings presented. I attest that I had a [id number] encounter with the patient on the same day, and personally performed and documented my assessment and findings in the medical record. Patient with acute CVA likely secondary to carotid stenosis. No arrhythmias detected on telemetry. At this time, neurologic status is nearly back to baseline. No focal deficits detected on today's examination. Plan is for endarterectomy likely tomorrow. He will continue on aspirin and clopidogrel for antiplatelet therapy. Counseling on lifestyle habits discussed at length. Will need good blood pressure management, healthy diet, daily physical activity. Neurology and vascular surgery on board, appreciate assistance. <Noah Mahmood - 04/19/18 17:26>
[2018-04-19] MEDS: Enoxaparin Inj 40 MG/0.4 ML Syringe SQ SCH (16:00)
--- NOTE | 2018-04-19 20:31 | P.PNNEU ---
Subjective Subjective Comments: Pt is neurologically stable. He still has some difficulty with speech but thinks improving He feels his right sided strenght is stable Active Medications: Active Medications Al Hydroxide/Mg Hydroxide (Milk Of Hernando Pickett) 30 ml PO Q12H PRN PRN Reason: Mild Constipation Aspirin (Aspirin Chew) 81 mg PO DAILY [facility] Last Admin: 04/19/18 08:20 Dose: 81 mg Atorvastatin Calcium (Lipitor) 80 mg PO DAILY [facility] Last Admin: 04/19/18 08:19 Dose: 80 mg Clonidine HCl (Catapres) 0.1 mg PO Q6H PRN PRN Reason: SEE LABEL COMMENTS Clopidogrel Bisulfate (Plavix) 75 mg PO DAILY [facility] Last Admin: 04/19/18 08:20 Dose: 75 mg Enoxaparin Sodium (Lovenox Inj) 40 mg SQ Q24H [facility] Last Admin: 04/19/18 16:00 Dose: 40 mg Hydrochlorothiazide (Hydrodiuril) 12.5 mg PO DAILY [facility] Last Admin: 04/19/18 12:43 Dose: 12.5 mg Sodium Chloride (Ns Inj) 1,000 mls @ 84 mls/hr IV.CONT .[id number] [facility] Last Admin: 04/19/18 17:00 Dose: 84 mls/hr Losartan Potassium (Cozaar) 100 mg PO DAILY [facility] Last Admin: 04/19/18 12:44 Dose: 100 mg Miscellaneous (Pill Splitter) 1 each OTHER UNSCH PRN PRN Reason: SEE LABEL COMMENTS Patient Own Medication ( Valsartan- Hydrochlorothiazide [Valsartan- Hydrochlorothiazide] 1 T 0 each PO DAILY [facility] Senna/Docusate Sodium (Ria-Colace) 1 tab PO BID [facility] Last Admin: 04/19/18 08:20 Dose: 1 tab Sennosides (Senokot) 17.2 mg PO Q12H PRN PRN Reason: Moderate Constipation Allergies/Adverse Reactions: Allergies Allergy/AdvReac Type Severity Reaction Status Date / Time No Known Allergies Allergy Verified 04/17/18 12:44 Physical Exam Vital signs: Vital Signs 04/19/18 00:00 04/19/18 04:00 04/19/18 08:00 Temperature 97.6 F 97.6 F 97.8 F Pulse Rate 73 79 72 Respiratory Rate 18 18 16 Blood Pressure 140/70 142/71 H 133/77 Pulse Oximetry 95 98 97 04/19/18 12:00 04/19/18 16:00 04/19/18 19:30 Temperature 97.4 F L 98.1 F Pulse Rate 73 72 75 Respiratory Rate 16 16 Blood Pressure 158/106 H 128/65 Pulse Oximetry 96 94 L Intake & Output 04/19/18 04/19/18 04/20/18 06:59 18:59 06:59 Intake Total 1000 / 1000 Balance 1000 / 1000 Weight 89.4 kg Intake: IV 1000 / 1000 NS Inj 1,000 ML @ 84 mls/hr IV. 1000 / 1000 CONT .[id number] [facility] Rx#:[id number] Other: # Voids 3 Date of Last Bowel Movement 04/16/18 04/19/18 # Bowel Movements 2 - Routine Neurological Exam alert, speech has mild hesitancy. He can repeat phrases. comprehension is normal CN intact MOTOR 4+/5 RUE and RLE. 5/5 LUE and LLE Objective Laboratory Results - last 24 hr 04/19/18 04/19/18 04/19/18 07:41 08:25 08:25 WBC 8.5 RBC 4.91 Hgb 14.7 Hct 43.5 MCV 88.4 MCH 29.9 MCHC 33.8 RDW 14.2 Plt Count 188 MPV 8.2 Neut % (Auto) 68.3 Lymph % (Auto) 20.2 [place] % (Auto) 8.7 H Eos % (Auto) 2.4 Baso % (Auto) 0.4 Neut # (Auto) 5.8 Lymph # (Auto) 1.7 [place] # (Auto) 0.7 Eos # (Auto) 0.2 Baso # (Auto) 0.0 WBC Differential . Differential Comment Auto diff final Sodium 138 Potassium 3.9 Chloride 106 Carbon Dioxide 23.7 Anion Gap 8 BUN 18 Creatinine 0.88 Estimated GFR 83 L POC Glucose 110 Random Glucose 105 Calcium 8.5 Blood Type Antibody Screen MTS Gel Crossmatch 04/19/18 14:19 WBC RBC Hgb Hct MCV MCH MCHC RDW Plt Count MPV Neut % (Auto) Lymph % (Auto) [place] % (Auto) Eos % (Auto) Baso % (Auto) Neut # (Auto) Lymph # (Auto) [place] # (Auto) Eos # (Auto) Baso # (Auto) WBC Differential Differential Comment Sodium Potassium Chloride Carbon Dioxide Anion Gap BUN Creatinine Estimated GFR POC Glucose Random Glucose Calcium Blood Type O Negative Antibody Screen Negative MTS Gel Crossmatch See Detail Review/Management - Diagnosis (1) Acute CVA (cerebrovascular accident) Code(s): I63.9 - Cerebral infarction, unspecified Status: Acute Current Visit: Yes - Review/Management Plan: I agree with plan to proceed with right carotid endarterectomy.
[2018-04-20] MEDS: Sod Chloride 0.9% Inj 1,000 ML IV.CONT SCH ×2 (05:33→18:21)
[2018-04-20] MEDS: hydroCHLOROthiazide 25 MG Tablet PO SCH (09:31)
[2018-04-20] MEDS: Senna/Docusate Sodium 8.6/50 MG Tablet PO SCH ×2 (09:32→20:45)
[2018-04-20 10:43] LABS: Baso % (Auto) 0.4 % (0.0-2.0); Eos # (Auto) 0.2 th/mm3 (0.0-0.4); Eos % (Auto) 2.6 % (0.0-4.0); Hemoglobin 15.8 gm/dL (13.0-17.0); Lymph # (Auto) 1.9 th/mm3 (1.0-4.8); Lymph % (Auto) 21.5 % (9.0-44.0); Mean Corpuscular HGB Conc 33.6 % (32.0-36.0); Mean Corpuscular Volume 89.2 fL (80.0-100.0); Mean Platelet Volume 8.3 fL (7.0-11.0); Mono # (Auto) 0.7 th/mm3 (0.0-0.9); Mono % (Auto) 8.4 % (0.0-8.0); Neut # (Auto) 5.8 th/mm3 (1.8-7.7); Neut % (Auto) 67.1 % (16.0-70.0); Platelet Count 202 th/mm3 (150-450); Red Blood Count 5.27 mil/mm3 (4.50-5.90); Red Cell Distribution Width 14.4 % (11.6-17.2); White Blood Count 8.6 th/mm3 (4.0-11.0)
[2018-04-20] MEDS ORDERED: Chlorhexidine Gluconate 2% 1 Pack (2 Cloths) TOPICAL ONE (10:45)
[2018-04-20] MEDS ORDERED: Metoprolol Tartrate 25 MG Tablet PO ONE (10:45)
[2018-04-20] MEDS ORDERED: Sodium Chlor 0.9% Inj 500 ML IV.CONT ONE ×2 (10:45→11:32)
[2018-04-20] MEDS ORDERED: fentaNYL Citrate Inj 100 MCG/2 ML Ampul ONE ×2 (10:49→14:24)
[2018-04-20] MEDS ORDERED: Lidocaine 1% Inj 50 ML Vial ONE (11:08)
[2018-04-20] MEDS ORDERED: Heparin 10,000 UNITS/10 ML Vial (for IV use) ONE (11:10)
[2018-04-20] MEDS ORDERED: Protamine Sulfate Inj 50 MG/5 ML Vial ONE (11:10)
[2018-04-20 11:14] LABS: Calcium 8.6 mg/dL (8.5-10.1); Carbon Dioxide 29.9 meq/L (21.0-32.0); Potassium 3.6 meq/L (3.5-5.1)
[2018-04-20] MEDS ORDERED: Phenylephrine/NS 1000 MCG/10ML Syringe IV.PUSH ONE (11:32)
[2018-04-20] MEDS ORDERED: Glycopyrrolate Inj 1 MG/5 ML Syringe IV.PUSH ONE (11:32)
[2018-04-20] MEDS ORDERED: Lidocaine PF 1% Inj 5 ML Syringe OTHER ONE (11:32)
[2018-04-20] MEDS ORDERED: Normosol-R pH 7.4 Inj 2,000 ML IV.CONT ONE (11:32)
[2018-04-20] MEDS ORDERED: Sodium Chlor 0.9% Inj 250 ML IV.CONT ONE (11:32)
[2018-04-20] MEDS ORDERED: Labetalol HCl Inj 100 MG/20 ML Vial IV.CONT ONE (11:32)
[2018-04-20] MEDS ORDERED: ceFAZolin 1 GM Premix Inj 2 GM/100 ML PIGGYBACK IV.SIG ONE (12:33)
[2018-04-20] MEDS: Heparin 10,000 UNITS/10 ML Vial (for IV use) ONE ×2 (12:42→13:51)
[2018-04-20] MEDS: Heparin - SQ 10,000 UNITS/ML Vial ONE ×2 (12:56→13:52)
--- NOTE | 2018-04-20 13:07 | P.PNFP ---
Subjective Interval history: Patient feels like his strength is improving daily and less weakness. He is still having difficulty with finding words and using food utensils. He denies any issues with vision or dizziness. Patient going to surgery today. <Regine Yoon - 04/20/18 13:07> Results - Labs Result diagrams: 04/20/18 07:49 04/20/18 07:49 <Noah Mahmood - 04/20/18 17:31> Abnormal lab results 04/20/18 04/20/18 Range/Units 07:49 07:49 [place] % (Auto) 8.4 H (0.0-8.0) % Estimated GFR 79 L (>89) mL/min Short CBC 04/20/18 Range/Units 07:49 WBC 8.6 (4.0-11.0) th/mm3 Hgb 15.8 (13.0-17.0) gm/dL Hct 47.0 (39.0-51.0) % Plt Count 202 (150-450) th/mm3 [facility] 04/20/18 07:49 Sodium 139 Potassium 3.6 Chloride 103 Carbon Dioxide 29.9 BUN 16 Creatinine 0.91 Calcium 8.6 <Noah Mahmood - 04/20/18 17:31> Abnormal lab results 04/19/18 04/20/18 04/20/18 Range/Units 14:19 07:49 07:49 [place] % (Auto) 8.4 H (0.0-8.0) % Estimated GFR 79 L (>89) mL/min MTS Gel Crossmatch See Detail Short CBC 04/20/18 Range/Units 07:49 WBC 8.6 (4.0-11.0) th/mm3 Hgb 15.8 (13.0-17.0) gm/dL Hct 47.0 (39.0-51.0) % Plt Count 202 (150-450) th/mm3 [facility] 04/20/18 07:49 Sodium 139 Potassium 3.6 Chloride 103 Carbon Dioxide 29.9 BUN 16 Creatinine 0.91 Calcium 8.6 <Regine Yoon - 04/20/18 13:07> Physical Exam Vital signs: Vital Signs 04/19/18 19:30 04/19/18 20:00 04/20/18 00:00 Temperature 97.7 F 97.7 F Pulse Rate 75 74 68 Respiratory Rate 20 17 Blood Pressure 132/65 141/86 H Pulse Oximetry 96 96 04/20/18 04:00 04/20/18 08:00 04/20/18 09:43 Temperature 97.4 F L 97.1 F L 97.4 F L Pulse Rate 68 70 78 Respiratory Rate 17 16 16 Blood Pressure 162/84 H 151/85 H 148/85 H Pulse Oximetry 96 97 97 04/20/18 14:15 04/20/18 14:30 04/20/18 14:45 Temperature 97.4 F L Pulse Rate 84 91 H 89 Respiratory Rate 14 18 14 Blood Pressure 132/78 150/91 H 142/72 H Pulse Oximetry 93 L 94 L 95 04/20/18 15:00 04/20/18 15:15 04/20/18 15:30 Temperature 97.5 F L Pulse Rate 83 81 80 Respiratory Rate 13 14 14 Blood Pressure 145/75 H 145/77 H 145/77 H Pulse Oximetry 94 L 94 L 94 L 04/20/18 16:00 Temperature Pulse Rate 80 Respiratory Rate 12 Blood Pressure 143/82 H Pulse Oximetry 93 L Intake & Output 04/19/18 04/20/18 04/20/18 18:59 06:59 18:59 Intake Total 1000 / 1000 1600 / 1600 Output Total 75 / 75 Balance 1000 / 1000 1525 / 1525 Weight 89.4 kg Intake: IV 1000 / 1000 1100 / 1100 LR 1000 mL Inj 1,000 ML @ 30 1000 / 1000 mls/hr IV.CONT .Q24H ONE Rx#: [id number] NS Inj 1,000 ML @ 84 mls/hr IV. 1000 / 1000 CONT .[id number] [facility] Rx#:[id number] Ancef 1 GM Premix Inj 2 gm In 100 / 100 100 ml @ 0 mls/hr IV.SIG .STK- MED ONE Rx#:[id number] Anesthesia Amount 500 / 500 Output: Estimated Blood Loss 50 / 50 Wound Drainage # 1 Right Neck ISAAC Drain Other: # Voids 3 Date of Last Bowel Movement 04/19/18 04/19/18 04/19/18 # Bowel Movements 2 <Noah Mahmood L - 04/20/18 17:31> Vital Signs 04/19/18 16:00 04/19/18 19:30 04/19/18 20:00 Temperature 98.1 F 97.7 F Pulse Rate 72 75 74 Respiratory Rate 16 20 Blood Pressure 128/65 132/65 Pulse Oximetry 94 L 96 04/20/18 00:00 04/20/18 04:00 04/20/18 08:00 Temperature 97.7 F 97.4 F L 97.1 F L Pulse Rate 68 68 70 Respiratory Rate 17 17 16 Blood Pressure 141/86 H 162/84 H 151/85 H Pulse Oximetry 96 96 97 04/20/18 09:43 Temperature 97.4 F L Pulse Rate 78 Respiratory Rate 16 Blood Pressure 148/85 H Pulse Oximetry 97 Intake & Output 04/19/18 04/20/18 04/20/18 18:59 06:59 18:59 Intake Total 1000 / 1000 Balance 1000 / 1000 Weight 89.4 kg Intake: IV 1000 / 1000 NS Inj 1,000 ML @ 84 mls/hr IV. 1000 / 1000 CONT .[id number] [facility] Rx#:[id number] Other: # Voids 3 Date of Last Bowel Movement 04/19/18 04/19/18 # Bowel Movements 2 <Regine Yoon - 04/20/18 13:07> Narrative: GENERAL: NAD, lying comfortably in bed SKIN: Warm and dry. HEAD: Atraumatic. Normocephalic. No facial asymmetry noted. EYES: Pupils equal and round. EOMI. No scleral icterus. No injection or drainage. ENT: No nasal bleeding or discharge. Mucous membranes pink and moist. NECK: Trachea midline. No JVD. CARDIOVASCULAR: Regular rate and rhythm. Soft bruit of R carotid. RESPIRATORY: No accessory muscle use. Clear to auscultation. Breath sounds equal bilaterally. GASTROINTESTINAL: Abdomen soft, non-tender, nondistended. Hepatic and splenic margins not palpable. MUSCULOSKELETAL: Extremities without clubbing, cyanosis, or edema. No obvious deformities. NEUROLOGICAL: Awake and alert. 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 Motor grossly within normal limits. Five out of 5 muscle strength in the arms and legs. Normal speech. No pronator drift. PSYCHIATRIC: Appropriate mood and affect; insight and judgment normal. <Regine Yoon 04/20/18 13:07> Assessment and Plan - Assessment (1) Acute CVA (cerebrovascular accident) Code(s): I63.9 - Cerebral infarction, unspecified Status: Acute (2) Internal carotid artery stenosis Code(s): I65.29 - Occlusion and stenosis of unspecified carotid artery Status : Acute (3) Hypertension Code(s): I10 - Essential (primary) hypertension Status: Acute (4) Nutrition, metabolism, and development symptoms Code(s): R63.8 - Other symptoms and signs concerning food and fluid intake Status: Acute <Noah Mahmood - 04/20/18 17:31> (1) Acute CVA (cerebrovascular accident) Code(s): I63.9 - Cerebral infarction, unspecified Status: Acute Plan: 83-year-old male past medical history of hypertension presented with right- sided weakness and difficulty with speech. Weakness began 2 days prior to admission. [place] that he has had increasing fatigue and difficulty speech for 3 weeks. Found to have multiple small acute infarcts in the left hemisphere CT head: Chronic microvascular disease, patchy white matter disease -Neurology consult: Recommended bedrest and deferred to vascular for any intervention at this time. -PT consult -Consulted OT as patient is reporting some difficulty with fine movements of his hands -Neuroimaging as above, MRI brain showing multiple small acute infarcts in the left hemisphere including in the left occipital lobe and deep white matter of the left periventricular region all measuring 1 cm or less in diameter. -2D echo showing LV systolic function hyperdynamic with and eEF of 65-70%, no regional wall motion abnormalities -Neuro checks q4hrs -Continue Atorvastatin 80 and aspirin 81 mg; started Plavix 75 mg daily Continuous cardiac telemetry (2) Internal carotid artery stenosis Code(s): I65.29 - Occlusion and stenosis of unspecified carotid artery Status : Acute Plan: Neck CTA showing high-grade 70% stenosis of the proximal right ICA Vascular surgery consulted: Recommended starting Plavix daily right carotid endarterectomy today (3) Hypertension Code(s): I10 - Essential (primary) hypertension Status: Acute Plan: BPs ranging 110s-160s/60s-70s since admission -Clonidine 0.1mg PRN BP>220/120 -Resumed home meds of losartan HCTZ (4) Nutrition, metabolism, and development symptoms Code(s): R63.8 - Other symptoms and signs concerning food and fluid intake Status: Acute Plan: Fluids: per PO Diet: Cardiac diet Electolytes: Monitor and replete as needed DVT ppx: lovenox <Regine Yoon - 04/20/18 13:04> - Attending Attestation The exam, history, and the medical decision-making described in the above note were completed with the assistance of the resident physician. I reviewed and agree with the findings presented. I attest that I had a [id number] encounter with the patient on the same day, and personally performed and documented my assessment and findings in the medical record. Seen with Dr. Yoon. He has mild hardly noticeable slurring of words and word finding difficulty, mostly by subjective report. Reports difficulty using eating utensils, occupational therapy working with him on this. Physical therapy working with him, strength appears back to baseline. Going for endarterectomy of carotid artery today. <Noah Mahmood - 04/20/18 17:31>
[2018-04-20] MEDS ORDERED: Sugammadex Inj 200 MG/2 ML Vial IV.PUSH ONE (13:48)
[2018-04-20] MEDS ORDERED: *morphine SULFATE 4 MG/ML PERIprocedure ONLY ONE ×2 (14:34→14:49)
[2018-04-20] MEDS ORDERED: Morphine Inj 4 MG/ML Vial IV.PUSH PRN (15:49)
[2018-04-20] MEDS ORDERED: Post-op Orders (for Pharmacy) OTHER ONE (15:49)
[2018-04-20] MEDS ORDERED: Bisacodyl 10 MG Supp RECTAL PRN (15:49)
[2018-04-20] MEDS ORDERED: Naloxone Inj 0.4 MG/ML Vial IV.PUSH PRN (15:49)
[2018-04-20] MEDS: Enoxaparin Inj 40 MG/0.4 ML Syringe SQ SCH (18:22)
--- NOTE | 2018-04-20 21:47 | MP ---
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 POSTOPERATIVE DIAGNOSIS: Right internal carotid artery stenosis and left internal carotid artery occlusion. PROCEDURE PERFORMED: Right carotid endarterectomy patch angioplasty. SURGEON: Scot Oakes MD ANESTHESIA: General. ESTIMATED BLOOD LOSS: 100 mL. DESCRIPTION OF PROCEDURE: The patient prepped and draped in the usual fashion. The right peristernocleidomastoid incision is made, deepened down through the platysma to the level of the carotid sheath. The common carotid, internal and external carotid artery were isolated with the combined sharp and blunt dissection. Hypoglossal nerve was carefully identified and preserved. Umbilical tape with Montse tourniquet was placed around each vessel respectively. The patient was given 7000 units of heparin. Weitlaner retractors to the upper arm are in turn placed, and then the clamps applied; bulldog to the common carotid at the internal carotid artery and DeBakey clamp to common carotid artery. Vessels were opened longitudinally with Lira scissors. The [place] shunt is immediately placed; blood flow reestablished. The vessel was now observed. There is a high-grade stenosis of the vessel, probably around 80%, extending about an inch into the internal carotid artery and about an inch into the common carotid artery. Plaque is dissected in the medial plane using Cozad dissector and then removed. Debris is then removed with the heparinized saline flushes with ____ and fine forceps. The intima of the internal carotid artery is slightly elevated, this was tacked down with 7-0 Prolene horizontal mattress stitches at 3 and 6 o'clock. A 5 mm bovine patch was chosen and sewn in with a 5-0 running Prolene. Prior to completion of the closure, [place] shunt was removed and closure completed. Blood flow was then reestablished in the usual order and fashion, preventing internal artery embolization. The area was irrigated with saline. Meticulous hemostasis assured. A piece of Surgicel placed over the vessel. Blood flow was checked with Doppler and is brisk in all 3 vessels. A #7 flat ISAAC placed. Incision closed with 0 Vicryl in layers and a 4-0 Monocryl for the skin. The patient tolerated the procedure well and was taken to the operating room in stable condition and wakes up neurologically fully intact. MD EMILY Wills/imkel/fabiano , 07:56 PM , 08:04 PM
[2018-04-21] MEDS: Sod Chloride 0.9% Inj 1,000 ML IV.CONT SCH (06:57)
[2018-04-21 06:59] LABS: Baso % (Auto) 0.2 % (0.0-2.0); Eos % (Auto) 0.1 % (0.0-4.0); Hematocrit 41.8 % (39.0-51.0); Hemoglobin 14.3 gm/dL (13.0-17.0); Lymph # (Auto) 1.1 th/mm3 (1.0-4.8); Lymph % (Auto) 8.3 % (9.0-44.0); Mean Corpuscular HGB Conc 34.3 % (32.0-36.0); Mean Corpuscular Hemoglobin 29.9 pg (27.0-34.0); Mean Corpuscular Volume 87.2 fL (80.0-100.0); Mean Platelet Volume 8.3 fL (7.0-11.0); Mono # (Auto) 1.2 th/mm3 (0.0-0.9); Neut # (Auto) 11.5 th/mm3 (1.8-7.7); Neut % (Auto) 82.4 % (16.0-70.0); Platelet Count 193 th/mm3 (150-450); Red Blood Count 4.79 mil/mm3 (4.50-5.90); Red Cell Distribution Width 13.8 % (11.6-17.2); White Blood Count 13.9 th/mm3 (4.0-11.0)
[2018-04-21 07:08] LABS: Calcium 8.5 mg/dL (8.5-10.1); Carbon Dioxide 25.9 meq/L (21.0-32.0); Potassium 4.2 meq/L (3.5-5.1)
[2018-04-21] MEDS: hydroCHLOROthiazide 25 MG Tablet PO SCH (08:35)
--- NOTE | 2018-04-21 11:30 | P.PNFP ---
Subjective Interval history: Patient seen and examined at bedside this morning. No acute events overnight. Patient reports he feels okay. However he noticed slightly worsening slurred speech and inability in finding words. Reports improvement in vision and extremity strength has remained stable. Patient is alert and oriented x3. Denies any chest pain, shortness of breath, palpitations, nausea, vomiting, fever, chills, headache, dizziness or abdominal pain. <Bennett Oneil D - 04/21/18 11:59> Results - Labs Result diagrams: 04/21/18 06:01 04/21/18 06:01 <Shaila Nathan R - 04/21/18 15:34> Abnormal lab results 04/21/18 04/21/18 04/21/18 Range/Units 06:01 06:01 12:40 WBC 13.9 H D (4.0-11.0) th/mm3 Neut % (Auto) 82.4 H (16.0-70.0) % Lymph % (Auto) 8.3 L (9.0-44.0) % [place] % (Auto) 9.0 H (0.0-8.0) % Neut # (Auto) 11.5 H (1.8-7.7) th/mm3 [place] # (Auto) 1.2 H (0.0-0.9) th/mm3 Estimated GFR 83 L (>89) mL/min POC Glucose 123 H (68-110) mg/dl Random Glucose 113 H (74-106) mg/dL Short CBC 04/21/18 Range/Units 06:01 WBC 13.9 H D (4.0-11.0) th/mm3 Hgb 14.3 (13.0-17.0) gm/dL Hct 41.8 (39.0-51.0) % Plt Count 193 (150-450) th/mm3 [facility] 04/21/18 06:01 Sodium 137 Potassium 4.2 Chloride 102 Carbon Dioxide 25.9 BUN 16 Creatinine 0.88 Calcium 8.5 <Shaila Nathan R - 04/21/18 15:34> Abnormal lab results 04/20/18 04/21/18 04/21/18 Range/Units 07:49 06:01 06:01 WBC 13.9 H D (4.0-11.0) th/mm3 Neut % (Auto) 82.4 H (16.0-70.0) % Lymph % (Auto) 8.3 L (9.0-44.0) % [place] % (Auto) 9.0 H (0.0-8.0) % Neut # (Auto) 11.5 H (1.8-7.7) th/mm3 [place] # (Auto) 1.2 H (0.0-0.9) th/mm3 Estimated GFR 79 L 83 L (>89) mL/min Random Glucose 113 H (74-106) mg/dL Short CBC 04/21/18 Range/Units 06:01 WBC 13.9 H D (4.0-11.0) th/mm3 Hgb 14.3 (13.0-17.0) gm/dL Hct 41.8 (39.0-51.0) % Plt Count 193 (150-450) th/mm3 BMP 04/20/18 04/21/18 07:49 06:01 Sodium 139 137 Potassium 3.6 4.2 Chloride 103 102 Carbon Dioxide 29.9 25.9 BUN 16 16 Creatinine 0.91 0.88 Calcium 8.6 8.5 <Bennett Oneil - 04/21/18 11:59> Physical Exam Vital signs: Vital Signs 04/20/18 16:00 04/20/18 17:00 04/20/18 17:30 Temperature Pulse Rate 80 84 79 Respiratory Rate 12 14 14 Blood Pressure 143/82 H 154/101 H 153/83 H Pulse Oximetry 93 L 94 L 95 04/20/18 17:49 04/20/18 17:51 04/20/18 18:00 Temperature 97.6 F Pulse Rate 88 87 82 Respiratory Rate 23 13 Blood Pressure 172/97 H 177/91 H 177/91 H Pulse Oximetry 96 97 04/20/18 18:18 04/20/18 19:00 04/20/18 20:00 Temperature 98.5 F Pulse Rate 79 79 81 Respiratory Rate 16 10 L 11 L Blood Pressure 156/86 H 162/97 H Pulse Oximetry 96 89 L 97 04/20/18 20:14 04/20/18 21:00 04/20/18 21:01 Temperature Pulse Rate 85 84 83 Respiratory Rate 21 14 11 L Blood Pressure 162/97 H 161/123 H 167/88 H Pulse Oximetry 97 96 96 04/20/18 22:00 04/20/18 23:00 04/21/18 00:00 Temperature 98.7 F Pulse Rate 82 81 82 Respiratory Rate 8 L 9 L 11 L Blood Pressure 149/77 H 155/80 H 147/78 H Pulse Oximetry 97 98 98 04/21/18 01:00 04/21/18 02:00 04/21/18 03:00 Temperature Pulse Rate 82 80 78 Respiratory Rate 9 L 9 L 10 L Blood Pressure 148/86 H 128/80 140/80 Pulse Oximetry 98 98 99 04/21/18 04:00 04/21/18 04:03 Temperature 98.5 F Pulse Rate 81 89 Respiratory Rate 12 26 H Blood Pressure 139/100 H 153/89 H Pulse Oximetry 98 98 Intake & Output 04/20/18 04/21/18 04/21/18 18:59 06:59 18:59 Intake Total 1660 / 1660 1480 / 1480 Output Total 1425 / 1425 385 / 385 Balance 235 / 235 1095 / 1095 Weight 91.3 kg Intake: IV 1100 / 1100 1000 / 1000 LR 1000 mL Inj 1,000 ML @ 30 1000 / 1000 mls/hr IV.CONT .Q24H ONE Rx#: [id number] NS Inj 1,000 ML @ 84 mls/hr IV. 1000 / 1000 CONT .[id number] [facility] Rx#:[id number] Ancef 1 GM Premix Inj 2 gm In 100 / 100 100 ml @ 0 mls/hr IV.SIG .STK- MED ONE Rx#:[id number] Oral 60 / 60 480 / 480 Anesthesia Amount 500 / 500 Output: Urine 360 / 360 Estimated Blood Loss 50 / 50 Urine Amount (Catheter) 1350 / 1350 Straight 1350 / 1350 Wound Drainage 25 # 1 Right Neck ISAAC Drain Other: Date of Last Bowel Movement 04/19/18 04/19/18 04/19/18 <Shaila Nathan - 04/21/18 15:34> Vital Signs 04/20/18 14:15 04/20/18 14:30 04/20/18 14:45 Temperature 97.4 F L Pulse Rate 84 91 H 89 Respiratory Rate 14 18 14 Blood Pressure 132/78 150/91 H 142/72 H Pulse Oximetry 93 L 94 L 95 04/20/18 15:00 04/20/18 15:15 04/20/18 15:30 Temperature 97.5 F L Pulse Rate 83 81 80 Respiratory Rate 13 14 14 Blood Pressure 145/75 H 145/77 H 145/77 H Pulse Oximetry 94 L 94 L 94 L 04/20/18 16:00 04/20/18 17:00 04/20/18 17:30 Temperature Pulse Rate 80 84 79 Respiratory Rate 12 14 14 Blood Pressure 143/82 H 154/101 H 153/83 H Pulse Oximetry 93 L 94 L 95 04/20/18 17:49 04/20/18 17:51 04/20/18 18:00 Temperature 97.6 F Pulse Rate 88 87 82 Respiratory Rate 23 13 Blood Pressure 172/97 H 177/91 H 177/91 H Pulse Oximetry 96 97 04/20/18 18:18 04/20/18 19:00 04/20/18 20:00 Temperature 98.5 F Pulse Rate 79 79 81 Respiratory Rate 16 10 L 11 L Blood Pressure 156/86 H 162/97 H Pulse Oximetry 96 89 L 97 04/20/18 20:14 04/20/18 21:00 04/20/18 21:01 Temperature Pulse Rate 85 84 83 Respiratory Rate 21 14 11 L Blood Pressure 162/97 H 161/123 H 167/88 H Pulse Oximetry 97 96 96 04/20/18 22:00 04/20/18 23:00 04/21/18 00:00 Temperature 98.7 F Pulse Rate 82 81 82 Respiratory Rate 8 L 9 L 11 L Blood Pressure 149/77 H 155/80 H 147/78 H Pulse Oximetry 97 98 98 04/21/18 01:00 04/21/18 02:00 04/21/18 03:00 Temperature Pulse Rate 82 80 78 Respiratory Rate 9 L 9 L 10 L Blood Pressure 148/86 H 128/80 140/80 Pulse Oximetry 98 98 99 04/21/18 04:00 04/21/18 04:03 Temperature 98.5 F Pulse Rate 81 89 Respiratory Rate 12 26 H Blood Pressure 139/100 H 153/89 H Pulse Oximetry 98 98 Intake & Output 04/20/18 04/21/18 04/21/18 18:59 06:59 18:59 Intake Total 1660 / 1660 1480 / 1480 Output Total 1425 / 1425 385 / 385 Balance 235 / 235 1095 / 1095 Weight 91.3 kg Intake: IV 1100 / 1100 1000 / 1000 LR 1000 mL Inj 1,000 ML @ 30 1000 / 1000 mls/hr IV.CONT .Q24H ONE Rx#: [id number] NS Inj 1,000 ML @ 84 mls/hr IV. 1000 / 1000 CONT .[id number] [facility] Rx#:[id number] Ancef 1 GM Premix Inj 2 gm In 100 / 100 100 ml @ 0 mls/hr IV.SIG .STK- MED ONE Rx#:[id number] Oral 60 / 60 480 / 480 Anesthesia Amount 500 / 500 Output: Urine 360 / 360 Estimated Blood Loss 50 / 50 Urine Amount (Catheter) 1350 / 1350 Straight 1350 / 1350 Wound Drainage # 1 Right Neck ISAAC Drain Other: Date of Last Bowel Movement 04/19/18 04/19/18 <Winsome Oneilly D - 04/21/18 11:59> - Constitutional no acute distress <CalzadoWinsomeBennett D - 04/21/18 11:59> - Routine HEENT Exam Head: Present: normocephalic <CalzadoWinsomeBennett D - 04/21/18 11:59> Eye: Present: EOMI (incomplete, unable to continue to follow my finger from center to left in a sustained fashion, however reports improved vision), PERRL <CalzadoWinsomeBennett D - 04/21/18 11:59> ENT: Present: mucous membranes moist <CalzadoBennett D - 04/21/18 11:59> - Routine Neck Exam Present: supple, full ROM <CalzadoBennett D - 04/21/18 11:59> - Routine Respiratory Exam Present: CTA bilaterally. Absent: accessory muscle use <CalzadoBennett D - 11:59> - Routine Cardiovascular Exam Present: RRR, S1, S2. Absent: murmur, gallop, rubs <CalzadoBennett D - 11:59> - Routine Abdominal Exam Present: soft, normoactive bowel sounds. Absent: tenderness, distended, rebound , guarding <CalemilydoWinsomeBennett D - 04/21/18 11:59> - Routine Extremities Exam Present: full ROM, pulses intact, normal capillary refill. Absent: cyanosis, edema <Bennett Oneil 04/21/18 11:59> Comments: 5/5 strength in all ext, normal sensation <Bennett Oneil 04/21/18 11:59> - Routine Skin Exam Present: intact <Bennett Oneil 04/21/18 11:59> - Routine Neurological Exam Present: oriented X3, CN II-XII intact, moving all extremities, normal tone, vision grossly intact, facial asymmetry (mild right facial droop), normal speech (slightly slurred speech). Absent: altered mental status, hemineglect, tremors <Bennett Oneil 04/21/18 11:59> Patient having more difficulties finding words this am <Bennett Oneil 04/21/18 11:59> - Routine Psychiatric Exam Present: normal affect <Bennett Oneil 04/21/18 11:59> - Urinary Catheter Management Straight Cath placed during this visit: no <Shaila Nathan 04/21/18 15:34> no <Bennett Oneil 04/21/18 13:45> Assessment and Plan - Assessment (1) Acute CVA (cerebrovascular accident) Code(s): I63.9 - Cerebral infarction, unspecified Status: Acute (2) Internal carotid artery stenosis Code(s): I65.29 - Occlusion and stenosis of unspecified carotid artery Status : Acute (3) Hypertension Code(s): I10 - Essential (primary) hypertension Status: Acute (4) Nutrition, metabolism, and development symptoms Code(s): R63.8 - Other symptoms and signs concerning food and fluid intake Status: Acute <Shaila Nathan - 04/21/18 15:34> (1) Acute CVA (cerebrovascular accident) Code(s): I63.9 - Cerebral infarction, unspecified Status: Acute Plan: 83-year-old male past medical history of hypertension presented with right- sided weakness and difficulty with speech. Weakness began 2 days prior to admission. [place] that he has had increasing fatigue and difficulty speech for 3 weeks. Found to have multiple small acute infarcts in the left hemisphere CT head: Chronic microvascular disease, patchy white matter disease -Neurology consult: Recommended bedrest and deferred to vascular for any intervention at this time. -PT consult -Consulted OT as patient is reporting some difficulty with fine movements of his hands -Neuroimaging as above, MRI brain showing multiple small acute infarcts in the left hemisphere including in the left occipital lobe and deep white matter of the left periventricular region all measuring 1 cm or less in diameter. -2D echo showing LV systolic function hyperdynamic with and eEF of 65-70%, no regional wall motion abnormalities -Neuro checks q4hrs -Continue Atorvastatin 80 and aspirin 81 mg and Plavix 75 mg daily Continuous cardiac telemetry - Patient is s/p Right internal carotid endarterectomy patch angioplasty on by Dr. Oakes. This am pt with slightly worsening in slurred speech and difficulty findings words, cranial nerves intact (unable to sustain left horizantal gaze with H test) and 5/5 strength in all ext with normal sensation. Will continue to assess patients neuro function as this may be due to him recuperating from the anesthesia drugs. If worsening neuro exam is noted on neuro checks will obtain repeat imaging to evaluate for extension of CVA. (2) Internal carotid artery stenosis Code(s): I65.29 - Occlusion and stenosis of unspecified carotid artery Status : Acute Plan: Neck CTA showing high-grade 70% stenosis of the proximal right ICA Vascular surgery consulted: Recommended starting Plavix daily (75mg po QD) - s/p Right internal carotid endarterectomy patch angioplasty on 04/20/[address] Oakes. (3) Hypertension Code(s): I10 - Essential (primary) hypertension Status: Acute Plan: BPs ranging 120s-160s/70-80s -Clonidine 0.1mg PRN BP>220/120 -Resumed home meds of losartan HCTZ (4) Nutrition, metabolism, and development symptoms Code(s): R63.8 - Other symptoms and signs concerning food and fluid intake Status: Acute Plan: Fluids: per PO Diet: Cardiac diet Electolytes: Monitor and replete as needed DVT ppx: lovenox <Bennett Oneil D - 04/21/18 13:45> - Attending Attestation This patient was seen and examined. The assessment and plan was discussed with the resident physician and I am in agreement with continued medical care as documented in this encounter. SHAILA NATHAN MD <Shaila Nathan - 04/21/18 15:34>
--- NOTE | 2018-04-21 15:11 | P.PNVS ---
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 Based on this, I believe that the patient has suffered left hemispheric stroke, but there are some foci of ischemic disease, probably from before. In addition the patient has right carotid artery 70% stenosis. Based on all of the above, my recommendation will be as follows. We can't fix the left side. This is occluded and there is nothing to do about this. However, the patient does have significant right internal carotid artery stenosis, which in the face of left occlusion becomes more of an urgent problem than it would be otherwise. Therefore, I recommended the patient is placed on Plavix, which I have done, stay in the hospital for a few days, and somewhere by the middle of the end of the week, we should proceed with a right carotid endarterectomy. I have explained the risks and benefits to the patient and clearly increased risk of stroke considering that the other side is occluded, but I believe with a functional and otherwise healthy patient, this is the best way to go. Right carotid endarterectomy at this point becomes fairly urgent issue considering that this is the only remaining major blood supply to the brain other than small vertebral arteries. All things equal I expect to go ahead with right carotid endarterectomy tomorrow Fully agree with Dr. Dang's evaluation 04/21/2018 Patient is status post carotid right endarterectomy Neurologically intact Incision is clean and dry DC [facility]-[place] DC A-line transfer patient to floor From my point patient can be discharged whenever okay with medicine Follow-up with me about 3-4 weeks in the office Objective Vital Signs / I&O: Vital Signs 04/20/18 15:15 04/20/18 15:30 04/20/18 16:00 Temperature 97.5 F L Pulse Rate 81 80 80 Respiratory Rate 14 14 12 Blood Pressure 145/77 H 145/77 H 143/82 H Pulse Oximetry 94 L 94 L 93 L 04/20/18 17:00 04/20/18 17:30 04/20/18 17:49 Temperature Pulse Rate 84 79 88 Respiratory Rate 14 14 23 Blood Pressure 154/101 H 153/83 H 172/97 H Pulse Oximetry 94 L 95 04/20/18 17:51 04/20/18 18:00 04/20/18 18:18 Temperature 97.6 F Pulse Rate 87 82 79 Respiratory Rate 13 16 Blood Pressure 177/91 H 177/91 H 156/86 H Pulse Oximetry 96 97 96 04/20/18 19:00 04/20/18 20:00 04/20/18 20:14 Temperature 98.5 F Pulse Rate 79 81 85 Respiratory Rate 10 L 11 L 21 Blood Pressure 162/97 H 162/97 H Pulse Oximetry 89 L 97 97 04/20/18 21:00 04/20/18 21:01 04/20/18 22:00 Temperature Pulse Rate 84 83 82 Respiratory Rate 14 11 L 8 L Blood Pressure 161/123 H 167/88 H 149/77 H Pulse Oximetry 96 96 97 04/20/18 23:00 04/21/18 00:00 04/21/18 01:00 Temperature 98.7 F Pulse Rate 81 82 82 Respiratory Rate 9 L 11 L 9 L Blood Pressure 155/80 H 147/78 H 148/86 H Pulse Oximetry 98 98 98 04/21/18 02:00 04/21/18 03:00 04/21/18 04:00 Temperature 98.5 F Pulse Rate 80 78 81 Respiratory Rate 9 L 10 L 12 Blood Pressure 128/80 140/80 139/100 H Pulse Oximetry 98 99 98 04/21/18 04:03 Temperature Pulse Rate 89 Respiratory Rate 26 H Blood Pressure 153/89 H Pulse Oximetry 98 Intake & Output 04/20/18 04/21/18 04/21/18 18:59 06:59 18:59 Intake Total 1660 / 1660 1480 / 1480 Output Total 1425 / 1425 385 / 385 Balance 235 / 235 1095 / 1095 Weight 91.3 kg Intake: IV 1100 / 1100 1000 / 1000 LR 1000 mL Inj 1,000 ML @ 30 1000 / 1000 mls/hr IV.CONT .Q24H ONE Rx#: [id number] NS Inj 1,000 ML @ 84 mls/hr IV. 1000 / 1000 CONT .[id number] [facility] Rx#:[id number] Ancef 1 GM Premix Inj 2 gm In 100 / 100 100 ml @ 0 mls/hr IV.SIG .STK- MED ONE Rx#:[id number] Oral 60 / 60 480 / 480 Anesthesia Amount 500 / 500 Output: Urine 360 / 360 Estimated Blood Loss 50 / 50 Urine Amount (Catheter) 1350 / 1350 Straight 1350 / 1350 Wound Drainage # 1 Right Neck ISAAC Drain Other: Date of Last Bowel Movement 04/19/18 04/19/18 04/19/18 Laboratory Results - last 24 hr 04/21/18 04/21/18 04/21/18 06:01 06:01 12:40 WBC 13.9 H D RBC 4.79 Hgb 14.3 Hct 41.8 MCV 87.2 MCH 29.9 MCHC 34.3 RDW 13.8 Plt Count 193 MPV 8.3 Neut % (Auto) 82.4 H Lymph % (Auto) 8.3 L Fleming % (Auto) 9.0 H Eos % (Auto) 0.1 Baso % (Auto) 0.2 Neut # (Auto) 11.5 H Lymph # (Auto) 1.1 Fleming # (Auto) 1.2 H Eos # (Auto) 0.0 Baso # (Auto) 0.0 WBC Differential . Differential Comment Auto diff final Sodium 137 Potassium 4.2 Chloride 102 Carbon Dioxide 25.9 Anion Gap 9 BUN 16 Creatinine 0.88 Estimated GFR 83 L POC Glucose 123 H Random Glucose 113 H Calcium 8.5
[2018-04-21] MEDS: Senna/Docusate Sodium 8.6/50 MG Tablet PO SCH (20:00)
[2018-04-22 06:49] LABS: Baso % (Auto) 0.2 % (0.0-2.0); Eos # (Auto) 0.3 th/mm3 (0.0-0.4); Hematocrit 43.6 % (39.0-51.0); Hemoglobin 14.9 gm/dL (13.0-17.0); Lymph # (Auto) 1.9 th/mm3 (1.0-4.8); Lymph % (Auto) 14.9 % (9.0-44.0); Mean Corpuscular HGB Conc 34.3 % (32.0-36.0); Mean Corpuscular Hemoglobin 30.4 pg (27.0-34.0); Mean Corpuscular Volume 88.7 fL (80.0-100.0); Mean Platelet Volume 8.3 fL (7.0-11.0); Mono # (Auto) 1.1 th/mm3 (0.0-0.9); Mono % (Auto) 8.6 % (0.0-8.0); Neut # (Auto) 9.6 th/mm3 (1.8-7.7); Neut % (Auto) 74.3 % (16.0-70.0); Platelet Count 201 th/mm3 (150-450); Red Blood Count 4.92 mil/mm3 (4.50-5.90); Red Cell Distribution Width 14.4 % (11.6-17.2); White Blood Count 12.9 th/mm3 (4.0-11.0)
[2018-04-22 06:51] LABS: Carbon Dioxide 26.8 meq/L (21.0-32.0); Potassium 3.7 meq/L (3.5-5.1)
[2018-04-22] MEDS: Senna/Docusate Sodium 8.6/50 MG Tablet PO SCH ×3 (08:38→23:03)
[2018-04-22] MEDS: hydroCHLOROthiazide 25 MG Tablet PO SCH (08:38)
--- NOTE | 2018-04-22 10:16 | P.PNVS ---
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 Based on this, I believe that the patient has suffered left hemispheric stroke, but there are some foci of ischemic disease, probably from before. In addition the patient has right carotid artery 70% stenosis. Based on all of the above, my recommendation will be as follows. We can't fix the left side. This is occluded and there is nothing to do about this. However, the patient does have significant right internal carotid artery stenosis, which in the face of left occlusion becomes more of an urgent problem than it would be otherwise. Therefore, I recommended the patient is placed on Plavix, which I have done, stay in the hospital for a few days, and somewhere by the middle of the end of the week, we should proceed with a right carotid endarterectomy. I have explained the risks and benefits to the patient and clearly increased risk of stroke considering that the other side is occluded, but I believe with a functional and otherwise healthy patient, this is the best way to go. Right carotid endarterectomy at this point becomes fairly urgent issue considering that this is the only remaining major blood supply to the brain other than small vertebral arteries. All things equal I expect to go ahead with right carotid endarterectomy tomorrow Fully agree with Dr. Dang's evaluation 04/21/2018 Patient is status post carotid right endarterectomy Neurologically intact Incision is clean and dry DC Carlos-Powers DC A-line transfer patient to floor From my point patient can be discharged whenever okay with medicine Follow-up with me about 3-4 weeks in the office 04/22/2018 Patient is awake alert and oriented Incision is clean and dry Neurologically intact as before the surgery Patient remains hypertensive and hence in ICU From my point patient can be transferred to floor and discharged any time if it is okay with medicine Objective Vital Signs / I&O: Vital Signs 04/21/18 10:15 04/21/18 10:30 04/21/18 10:46 Temperature Pulse Rate 76 76 72 Respiratory Rate 11 L 13 10 L Blood Pressure 155/81 H 153/75 H 137/68 Pulse Oximetry 98 99 99 04/21/18 11:00 04/21/18 11:16 04/21/18 11:30 Temperature Pulse Rate 77 72 80 Respiratory Rate 24 22 32 H Blood Pressure 147/77 H 133/69 130/66 Pulse Oximetry 99 99 98 04/21/18 11:46 04/21/18 12:00 04/21/18 12:15 Temperature 98.0 F Pulse Rate 72 77 71 Respiratory Rate 15 31 H 12 Blood Pressure 116/57 L 128/68 121/67 Pulse Oximetry 99 98 98 04/21/18 12:30 04/21/18 12:45 04/21/18 13:00 Temperature Pulse Rate 79 72 70 Respiratory Rate 27 H 16 10 L Blood Pressure 123/62 123/68 116/64 Pulse Oximetry 98 99 99 04/21/18 13:07 04/21/18 13:16 04/21/18 13:30 Temperature Pulse Rate 85 Respiratory Rate 15 Blood Pressure 132/66 148/74 H Pulse Oximetry 99 99 04/21/18 13:45 04/21/18 14:00 04/21/18 15:00 Temperature Pulse Rate 74 82 79 Respiratory Rate 14 20 20 Blood Pressure 117/64 Pulse Oximetry 98 99 99 04/21/18 15:59 04/21/18 16:00 04/21/18 16:59 Temperature 98.4 F Pulse Rate 71 74 75 Respiratory Rate 12 14 18 Blood Pressure 130/68 152/83 H Pulse Oximetry 100 100 100 04/21/18 17:00 04/21/18 17:10 04/21/18 17:20 Temperature Pulse Rate 80 78 88 Respiratory Rate 27 H 22 36 H Blood Pressure 144/83 H 158/72 H Pulse Oximetry 100 94 L 90 L 04/21/18 17:30 04/21/18 17:40 04/21/18 17:50 Temperature Pulse Rate 77 79 75 Respiratory Rate 17 19 15 Blood Pressure 155/66 H 142/74 H 132/65 Pulse Oximetry 94 L 92 L 91 L 04/21/18 18:00 04/21/18 18:40 04/21/18 18:50 Temperature Pulse Rate 76 87 100 H Respiratory Rate 13 34 H 42 H Blood Pressure 123/66 142/67 H 154/73 H Pulse Oximetry 91 L 94 L 93 L 04/21/18 19:00 04/21/18 19:10 04/21/18 19:20 Temperature Pulse Rate 93 H 97 H 89 Respiratory Rate 25 H 17 24 Blood Pressure 151/84 H 152/74 H 151/75 H Pulse Oximetry 94 L 92 L 93 L 04/21/18 19:30 04/21/18 19:40 04/21/18 19:50 Temperature Pulse Rate 98 H 84 84 Respiratory Rate 46 H 14 14 Blood Pressure 162/75 H 128/58 L 131/60 Pulse Oximetry 92 L 93 L 92 L 04/21/18 20:00 04/21/18 20:10 04/21/18 20:20 Temperature 98.4 F Pulse Rate 83 86 89 Respiratory Rate 14 19 30 H Blood Pressure 137/60 130/64 150/67 H Pulse Oximetry 90 L 91 L 93 L 04/21/18 20:30 04/21/18 20:40 04/21/18 20:50 Temperature Pulse Rate 87 86 86 Respiratory Rate 21 22 30 H Blood Pressure 144/68 H 123/59 L 142/64 H Pulse Oximetry 94 L 93 L 93 L 04/21/18 21:00 04/21/18 21:10 04/21/18 21:20 Temperature Pulse Rate 82 85 85 Respiratory Rate 25 H 27 H 26 H Blood Pressure 127/59 L 141/66 H 132/64 Pulse Oximetry 92 L 93 L 91 L 04/21/18 21:30 04/21/18 21:40 04/21/18 21:50 Temperature Pulse Rate 81 83 82 Respiratory Rate 16 21 19 Blood Pressure 114/55 L 126/58 L 122/57 L Pulse Oximetry 91 L 94 L 91 L 04/21/18 22:00 04/21/18 22:10 04/21/18 22:20 Temperature Pulse Rate 97 H 84 83 Respiratory Rate 32 H 15 14 Blood Pressure 179/81 H 133/72 127/59 L Pulse Oximetry 94 L 94 L 92 L 04/21/18 22:30 04/21/18 22:40 04/21/18 22:50 Temperature Pulse Rate 84 81 79 Respiratory Rate 22 14 20 Blood Pressure 131/58 L 129/58 L 132/60 Pulse Oximetry 91 L 91 L 90 L 04/21/18 23:00 04/21/18 23:10 04/21/18 23:20 Temperature Pulse Rate 77 80 80 Respiratory Rate 15 15 25 H Blood Pressure 109/55 L 117/56 L 119/55 L Pulse Oximetry 92 L 90 L 90 L 04/21/18 23:30 04/21/18 23:40 04/21/18 23:50 Temperature Pulse Rate 76 76 77 Respiratory Rate 15 14 16 Blood Pressure 118/58 L 116/56 L 111/53 L Pulse Oximetry 92 L 91 L 91 L 04/22/18 00:00 04/22/18 00:10 04/22/18 00:41 Temperature 98.3 F Pulse Rate 75 78 107 H Respiratory Rate 14 18 30 H Blood Pressure 124/58 L 140/63 166/81 H Pulse Oximetry 91 L 90 L 91 L 04/22/18 01:00 04/22/18 02:00 04/22/18 02:45 Temperature Pulse Rate 96 H 87 98 H Respiratory Rate 16 17 24 Blood Pressure 169/76 H Pulse Oximetry 90 L 93 L 93 L 04/22/18 03:00 04/22/18 04:00 04/22/18 05:00 Temperature 98.7 F Pulse Rate 90 82 104 H Respiratory Rate 16 18 45 H Blood Pressure 130/63 139/63 202/95 H Pulse Oximetry 93 L 91 L 91 L 04/22/18 05:07 04/22/18 06:00 04/22/18 06:03 Temperature Pulse Rate 93 H 86 85 Respiratory Rate 17 15 14 Blood Pressure 180/78 H 123/62 Pulse Oximetry 95 89 L 90 L Intake & Output 04/21/18 04/22/18 04/22/18 18:59 06:59 18:59 Intake Total 480 / 480 600 / 600 1000 / 1000 Output Total 1325 / 1325 1000 / 1000 Balance -845 / -845 -400 / -400 1000 / 1000 Weight 91 kg Intake: IV 1000 / 1000 Oral 480 / 480 600 / 600 Output: Urine 1300 / 1300 1000 / 1000 Wound Drainage # 1 Right Neck ISAAC Drain Other: # Voids 3 Date of Last Bowel Movement 04/19/18 04/19/18 # Bowel Movements 0 0 Laboratory Results - last 24 hr 04/19/18 04/21/18 04/22/18 14:19 12:40 05:21 WBC 12.9 H RBC 4.92 Hgb 14.9 Hct 43.6 MCV 88.7 MCH 30.4 MCHC 34.3 RDW 14.4 Plt Count 201 MPV 8.3 Neut % (Auto) 74.3 H Lymph % (Auto) 14.9 [place] % (Auto) 8.6 H Eos % (Auto) 2.0 Baso % (Auto) 0.2 Neut # (Auto) 9.6 H Lymph # (Auto) 1.9 [place] # (Auto) 1.1 H Eos # (Auto) 0.3 Baso # (Auto) 0.0 WBC Differential . Differential Comment Auto diff final Sodium Potassium Chloride Carbon Dioxide Anion Gap BUN Creatinine Estimated GFR POC Glucose 123 H Random Glucose Calcium MTS Gel Crossmatch See Detail 04/22/18 05:21 WBC RBC Hgb Hct MCV MCH MCHC RDW Plt Count MPV Neut % (Auto) Lymph % (Auto) [place] % (Auto) Eos % (Auto) Baso % (Auto) Neut # (Auto) Lymph # (Auto) [place] # (Auto) Eos # (Auto) Baso # (Auto) WBC Differential Differential Comment Sodium 138 Potassium 3.7 Chloride 101 Carbon Dioxide 26.8 Anion Gap 10 BUN 17 Creatinine 0.90 Estimated GFR 80 L POC Glucose Random Glucose 100 Calcium 9.0 MTS Gel Crossmatch
--- NOTE | 2018-04-22 13:03 | P.PNFP ---
Subjective Interval history: Patient seen and examined at bedside this am. He reports he had a short episode of confusion overnight when he got out of bed to go the bathroom and forgot where he was going and urinated while standing up. He was able to be oriented. Denies any confusion this am. AAOx3. Patient reports he would prefer to have physical therapy at home instead of going to rehab. reports strength and speech are improving. Denies difficultly eating, vision issues, Cp, sob, chills, fever, n/v, dizziness or abd pain. He feels well over all. <Bennett Oneil D - 04/22/18 14:42> Results - Labs Result diagrams: 04/23/18 06:52 04/23/18 06:52 <Shaila Nathan R - 04/23/18 10:02> Abnormal lab results 04/22/18 04/23/18 04/23/18 Range/Units 21:59 06:52 06:52 RBC 4.47 L (4.50-5.90) mil/mm3 Neut % (Auto) 73.0 H (16.0-70.0) % [place] % (Auto) 11.1 H (0.0-8.0) % [place] # (Auto) 1.1 H (0.0-0.9) th/mm3 POC Glucose 124 H (68-110) mg/dl Random Glucose 112 H (74-106) mg/dL Calcium 8.2 L D (8.5-10.1) mg/dL Short CBC 04/23/18 Range/Units 06:52 WBC 9.9 (4.0-11.0) th/mm3 Hgb 13.5 (13.0-17.0) gm/dL Hct 39.0 (39.0-51.0) % Plt Count 182 (150-450) th/mm3 BMP 04/23/18 06:52 Sodium 138 Potassium 3.6 Chloride 104 Carbon Dioxide 26.5 BUN 18 Creatinine 0.81 Calcium 8.2 L D <Shaila Nathan R - 04/23/18 10:02> Abnormal lab results 04/19/18 04/22/18 04/22/18 Range/Units 14:19 05:21 05:21 WBC 12.9 H (4.0-11.0) th/mm3 Neut % (Auto) 74.3 H (16.0-70.0) % [place] % (Auto) 8.6 H (0.0-8.0) % Neut # (Auto) 9.6 H (1.8-7.7) th/mm3 [place] # (Auto) 1.1 H (0.0-0.9) th/mm3 Estimated GFR 80 L (>89) mL/min MTS Gel Crossmatch See Detail Short CBC 04/22/18 Range/Units 05:21 WBC 12.9 H (4.0-11.0) th/mm3 Hgb 14.9 (13.0-17.0) gm/dL Hct 43.6 (39.0-51.0) % Plt Count 201 (150-450) th/mm3 BMP 04/22/18 05:21 Sodium 138 Potassium 3.7 Chloride 101 Carbon Dioxide 26.8 BUN 17 Creatinine 0.90 Calcium 9.0 <Bennett Oneil D - 04/22/18 13:03> Physical Exam Vital signs: Vital Signs 04/22/18 20:00 04/23/18 00:00 04/23/18 04:00 Temperature 98.9 F 97.3 F L 98.3 F Pulse Rate 87 94 H 89 Respiratory Rate 18 20 18 Blood Pressure 127/68 126/74 137/87 Pulse Oximetry 95 95 95 04/23/18 08:00 Temperature 98 F Pulse Rate 88 Respiratory Rate 16 Blood Pressure 144/87 H Pulse Oximetry 96 Intake & Output 04/22/18 04/23/18 04/23/18 18:59 06:59 18:59 Intake Total 1240 / 1240 240 / 240 Balance 1240 / 1240 240 / 240 Intake: IV 1000 / 1000 Oral 240 / 240 240 / 240 Other: # Voids 2 Date of Last Bowel Movement 04/22/18 04/22/18 <Shaila Nathan - 04/23/18 10:02> Vital Signs 04/21/18 13:07 04/21/18 13:16 04/21/18 13:30 Temperature Pulse Rate 85 Respiratory Rate 15 Blood Pressure 132/66 148/74 H Pulse Oximetry 99 99 04/21/18 13:45 04/21/18 14:00 04/21/18 15:00 Temperature Pulse Rate 74 82 79 Respiratory Rate 14 20 20 Blood Pressure 117/64 Pulse Oximetry 98 99 99 04/21/18 15:59 04/21/18 16:00 04/21/18 16:59 Temperature 98.4 F Pulse Rate 71 74 75 Respiratory Rate 12 14 18 Blood Pressure 130/68 152/83 H Pulse Oximetry 100 100 100 04/21/18 17:00 04/21/18 17:10 04/21/18 17:20 Temperature Pulse Rate 80 78 88 Respiratory Rate 27 H 22 36 H Blood Pressure 144/83 H 158/72 H Pulse Oximetry 100 94 L 90 L 04/21/18 17:30 04/21/18 17:40 04/21/18 17:50 Temperature Pulse Rate 77 79 75 Respiratory Rate 17 19 15 Blood Pressure 155/66 H 142/74 H 132/65 Pulse Oximetry 94 L 92 L 91 L 04/21/18 18:00 04/21/18 18:40 04/21/18 18:50 Temperature Pulse Rate 76 87 100 H Respiratory Rate 13 34 H 42 H Blood Pressure 123/66 142/67 H 154/73 H Pulse Oximetry 91 L 94 L 93 L 04/21/18 19:00 04/21/18 19:10 04/21/18 19:20 Temperature Pulse Rate 93 H 97 H 89 Respiratory Rate 25 H 17 24 Blood Pressure 151/84 H 152/74 H 151/75 H Pulse Oximetry 94 L 92 L 93 L 04/21/18 19:30 04/21/18 19:40 04/21/18 19:50 Temperature Pulse Rate 98 H 84 84 Respiratory Rate 46 H 14 14 Blood Pressure 162/75 H 128/58 L 131/60 Pulse Oximetry 92 L 93 L 92 L 04/21/18 20:00 04/21/18 20:10 04/21/18 20:20 Temperature 98.4 F Pulse Rate 83 86 89 Respiratory Rate 14 19 30 H Blood Pressure 137/60 130/64 150/67 H Pulse Oximetry 90 L 91 L 93 L 04/21/18 20:30 04/21/18 20:40 04/21/18 20:50 Temperature Pulse Rate 87 86 86 Respiratory Rate 21 22 30 H Blood Pressure 144/68 H 123/59 L 142/64 H Pulse Oximetry 94 L 93 L 93 L 04/21/18 21:00 04/21/18 21:10 04/21/18 21:20 Temperature Pulse Rate 82 85 85 Respiratory Rate 25 H 27 H 26 H Blood Pressure 127/59 L 141/66 H 132/64 Pulse Oximetry 92 L 93 L 91 L 04/21/18 21:30 04/21/18 21:40 04/21/18 21:50 Temperature Pulse Rate 81 83 82 Respiratory Rate 16 21 19 Blood Pressure 114/55 L 126/58 L 122/57 L Pulse Oximetry 91 L 94 L 91 L 04/21/18 22:00 04/21/18 22:10 04/21/18 22:20 Temperature Pulse Rate 97 H 84 83 Respiratory Rate 32 H 15 14 Blood Pressure 179/81 H 133/72 127/59 L Pulse Oximetry 94 L 94 L 92 L 04/21/18 22:30 04/21/18 22:40 04/21/18 22:50 Temperature Pulse Rate 84 81 79 Respiratory Rate 22 14 20 Blood Pressure 131/58 L 129/58 L 132/60 Pulse Oximetry 91 L 91 L 90 L 04/21/18 23:00 04/21/18 23:10 04/21/18 23:20 Temperature Pulse Rate 77 80 80 Respiratory Rate 15 15 25 H Blood Pressure 109/55 L 117/56 L 119/55 L Pulse Oximetry 92 L 90 L 90 L 04/21/18 23:30 04/21/18 23:40 04/21/18 23:50 Temperature Pulse Rate 76 76 77 Respiratory Rate 15 14 16 Blood Pressure 118/58 L 116/56 L 111/53 L Pulse Oximetry 92 L 91 L 91 L 04/22/18 00:00 04/22/18 00:10 04/22/18 00:41 Temperature 98.3 F Pulse Rate 75 78 107 H Respiratory Rate 14 18 30 H Blood Pressure 124/58 L 140/63 166/81 H Pulse Oximetry 91 L 90 L 91 L 04/22/18 01:00 04/22/18 02:00 04/22/18 02:45 Temperature Pulse Rate 96 H 87 98 H Respiratory Rate 16 17 24 Blood Pressure 169/76 H Pulse Oximetry 90 L 93 L 93 L 04/22/18 03:00 04/22/18 04:00 04/22/18 05:00 Temperature 98.7 F Pulse Rate 90 82 104 H Respiratory Rate 16 18 45 H Blood Pressure 130/63 139/63 202/95 H Pulse Oximetry 93 L 91 L 91 L 04/22/18 05:07 04/22/18 06:00 04/22/18 06:03 Temperature Pulse Rate 93 H 86 85 Respiratory Rate 17 15 14 Blood Pressure 180/78 H 123/62 Pulse Oximetry 95 89 L 90 L Intake & Output 04/21/18 04/22/18 04/22/18 18:59 06:59 18:59 Intake Total 480 / 480 600 / 600 1000 / 1000 Output Total 1325 / 1325 1000 / 1000 Balance -845 / -845 -400 / -400 1000 / 1000 Weight 91 kg Intake: IV 1000 / 1000 Oral 480 / 480 600 / 600 Output: Urine 1300 / 1300 1000 / 1000 Wound Drainage # 1 Right Neck ISAAC Drain Other: # Voids 3 Date of Last Bowel Movement 04/19/18 04/19/18 # Bowel Movements 0 0 <CalemilydoWinsomeBennett D - 04/22/18 13:03> - Constitutional no acute distress <CalemilydoWinsomeBennett D - 04/22/18 14:42> - Routine HEENT Exam Head: Present: normocephalic <Winsome Oneilly D - 04/22/18 14:42> Eye: Present: EOMI (incomplete, unable to continue to follow my finger from center to left in a sustained fashion, however reports improved vision)), PERRL <KeyshawnzadoWinsomeBennett D - 04/22/18 14:42> ENT: Present: mucous membranes moist <CalzadoWinsomeBennett D - 04/22/18 14:42> - Routine Neck Exam Present: supple <CalzadoWinsomeBennett D - 04/22/18 14:42> - Routine Respiratory Exam Absent: accessory muscle use, CTA bilaterally <CalzadoWinsomeBennett D - 04/22/18 14: 42> - Routine Cardiovascular Exam Present: RRR, S1, S2. Absent: murmur, gallop, rubs <CalzadoBennett D - 14:42> - Routine Abdominal Exam Present: soft, normoactive bowel sounds. Absent: tenderness, distended, rebound , guarding <CalzadoWinsomeBennett D - 04/22/18 14:42> - Routine Extremities Exam Present: pulses intact. Absent: cyanosis, edema, full ROM, calf tenderness < Bennett Oneil 04/22/18 14:42> - Routine Skin Exam Present: intact <Bennett Oneil 04/22/18 14:42> - Routine Neurological Exam Present: oriented X3, CN II-XII intact, moving all extremities, normal tone, vision grossly intact, facial asymmetry (mild right facial droop), normal speech (slightly slurred speech). Absent: hemineglect, tremors, asterixis < Bennett Oneil 04/22/18 14:42> - Routine Psychiatric Exam Present: normal affect, normal thought process <Bennett Oneil 04/22/18 14: 42> - Urinary Catheter Management Straight Cath placed during this visit: no <Shaila Nathan 04/23/18 10:02> no <Bennett Oneil 04/22/18 14:42> Assessment and Plan - Assessment (1) Acute CVA (cerebrovascular accident) Code(s): I63.9 - Cerebral infarction, unspecified Status: Acute (2) Internal carotid artery stenosis Code(s): I65.29 - Occlusion and stenosis of unspecified carotid artery Status : Acute (3) Hypertension Code(s): I10 - Essential (primary) hypertension Status: Acute (4) Nutrition, metabolism, and development symptoms Code(s): R63.8 - Other symptoms and signs concerning food and fluid intake Status: Acute <Shaila Nathan 04/23/18 10:02> (1) Acute CVA (cerebrovascular accident) Code(s): I63.9 - Cerebral infarction, unspecified Status: Acute Plan: 83-year-old male past medical history of hypertension presented with right- sided weakness and difficulty with speech. Weakness began 2 days prior to admission. [place] that he has had increasing fatigue and difficulty speech for 3 weeks. Found to have multiple small acute infarcts in the left hemisphere CT head: Chronic microvascular disease, patchy white matter disease -Neurology consult: Recommended bedrest and deferred to vascular for intervention. -PT consulted: based on 04/21 not rec physical therapy at rehab. However, pt reports based on this am assessment he can work with physical therapy at home. awaiting updated PT rec -Consulted OT as patient is reporting some difficulty with fine movements of his hands, improved -Neuroimaging as above, MRI brain showing multiple small acute infarcts in the left hemisphere including in the left occipital lobe and deep white matter of the left periventricular region all measuring 1 cm or less in diameter. -2D echo showing LV systolic function hyperdynamic with and eEF of 65-70%, no regional wall motion abnormalities -Neuro checks q4hrs -Continue Atorvastatin 80 and aspirin 81 mg and Plavix 75 mg daily Continuous cardiac telemetry - Patient is s/p Right internal carotid endarterectomy patch angioplasty on by Dr. Oakes. This am pt slurred speech improving and mild difficulty findings words, cranial nerves intact (unable to sustain left horizantal gaze with H test) and 5 /5 strength in all ext with normal sensation. (2) Internal carotid artery stenosis Code(s): I65.29 - Occlusion and stenosis of unspecified carotid artery Status : Acute Plan: Neck CTA showing high-grade 70% stenosis of the proximal right ICA Vascular surgery consulted: Recommended starting Plavix daily (75mg po QD) - s/p Right internal carotid endarterectomy patch angioplasty on 04/20/[address] Oakes. -Patient okay to be discharged from vascular surgery standpoint. (3) Hypertension Code(s): I10 - Essential (primary) hypertension Status: Acute Plan: BPs ranging 120-200s/60-90 -Clonidine 0.1mg PRN BP>220/120 -Resumed home meds of losartan HCTZ Continue to monitor blood pressures throughout the afternoon and consider updating blood pressure medication if needed. (4) Nutrition, metabolism, and development symptoms Code(s): R63.8 - Other symptoms and signs concerning food and fluid intake Status: Acute Plan: Fluids: per PO Diet: Cardiac diet Electolytes: Monitor and replete as needed DVT ppx: lovenox <Bennett Oneil D - 04/22/18 14:26> - Attending Attestation The assessment and plan was discussed with the resident physician and I am in agreement with continued medical care as documented in this encounter. SHAILA NATHAN MD <Shaila Nathan - 04/23/18 10:02>
[2018-04-22] MEDS: Enoxaparin Inj 40 MG/0.4 ML Syringe SQ SCH ×2 (17:21→19:31)
--- NOTE | 2018-04-22 19:34 | P.PNNEU ---
Subjective Subjective Comments: s/p right carotid endarterectomy. Doing well neurologically with no neuro sx. Active Medications: Active Medications Al Hydroxide/Mg Hydroxide (Milk Of Magnesia Liq) 30 ml PO Q12H PRN PRN Reason: Mild Constipation Aspirin (Aspirin Chew) 81 mg PO DAILY [facility] Last Admin: 04/22/18 08:38 Dose: 81 mg Atorvastatin Calcium (Lipitor) 80 mg PO DAILY [facility] Last Admin: 04/22/18 08:37 Dose: 80 mg Bisacodyl (Dulcolax Supp) 10 mg RECTAL DAILY PRN PRN Reason: SEVERE CONSITIPATION Clonidine HCl (Catapres) 0.1 mg PO Q6H PRN PRN Reason: SEE LABEL COMMENTS Last Admin: 04/22/18 17:20 Dose: 0.1 mg Clopidogrel Bisulfate (Plavix) 75 mg PO DAILY [facility] Last Admin: 04/22/18 08:38 Dose: 75 mg Enoxaparin Sodium (Lovenox Inj) 40 mg SQ Q24H [facility] Last Admin: 04/22/18 19:31 Dose: Not Given Hydrochlorothiazide (Hydrodiuril) 12.5 mg PO DAILY [facility] Last Admin: 04/22/18 08:38 Dose: 12.5 mg Lactulose (Lactulose Liq) 30 ml PO DAILY PRN PRN Reason: SEVERE CONSITIPATION Losartan Potassium (Cozaar) 100 mg PO DAILY [facility] Last Admin: 04/22/18 08:38 Dose: 100 mg Miscellaneous (Pill Splitter) 1 each OTHER UNSCH PRN PRN Reason: SEE LABEL COMMENTS Morphine Sulfate (Morphine Inj) 4 mg IV.PUSH Q3H PRN PRN Reason: PAIN 6-10;IF UNABLE TO TAKE PO Last Admin: 04/20/18 18:03 Dose: 4 mg Naloxone HCl (Narcan Inj) 0.4 mg IV.PUSH UNSCH PRN PRN Reason: SEE LABEL COMMENTS Ondansetron HCl (Zofran Inj) 4 mg IV.PUSH Q6H PRN PRN Reason: NAUSEA OR VOMITING Oxycodone HCl (Roxicodone) 5 mg PO Q4H PRN PRN Reason: PAIN SCALE 3 TO 5 Pantoprazole Sodium (Protonix) 40 mg PO DAILY [facility] Last Admin: 04/22/18 08:38 Dose: 40 mg Patient Own Medication ( Valsartan- Hydrochlorothiazide [Valsartan- Hydrochlorothiazide] 1 T 0 each PO DAILY [facility] Senna/Docusate Sodium (Ria-Colace) 1 tab PO BID [facility] Last Admin: 04/22/18 08:38 Dose: 1 tab Sennosides (Senokot) 17.2 mg PO Q12H PRN PRN Reason: Moderate Constipation Allergies/Adverse Reactions: Allergies Allergy/AdvReac Type Severity Reaction Status Date / Time No Known Allergies Allergy Verified 04/17/18 12:44 Physical Exam Vital signs: Vital Signs 04/21/18 19:40 04/21/18 19:50 04/21/18 20:00 Temperature 98.4 F Pulse Rate 84 84 83 Respiratory Rate 14 14 14 Blood Pressure 128/58 L 131/60 137/60 Pulse Oximetry 93 L 92 L 90 L 04/21/18 20:10 04/21/18 20:20 04/21/18 20:30 Temperature Pulse Rate 86 89 87 Respiratory Rate 19 30 H 21 Blood Pressure 130/64 150/67 H 144/68 H Pulse Oximetry 91 L 93 L 94 L 04/21/18 20:40 04/21/18 20:50 04/21/18 21:00 Temperature Pulse Rate 86 86 82 Respiratory Rate 22 30 H 25 H Blood Pressure 123/59 L 142/64 H 127/59 L Pulse Oximetry 93 L 93 L 92 L 04/21/18 21:10 04/21/18 21:20 04/21/18 21:30 Temperature Pulse Rate 85 85 81 Respiratory Rate 27 H 26 H 16 Blood Pressure 141/66 H 132/64 114/55 L Pulse Oximetry 93 L 91 L 91 L 04/21/18 21:40 04/21/18 21:50 04/21/18 22:00 Temperature Pulse Rate 83 82 97 H Respiratory Rate 21 19 32 H Blood Pressure 126/58 L 122/57 L 179/81 H Pulse Oximetry 94 L 91 L 94 L 04/21/18 22:10 04/21/18 22:20 04/21/18 22:30 Temperature Pulse Rate 84 83 84 Respiratory Rate 15 14 22 Blood Pressure 133/72 127/59 L 131/58 L Pulse Oximetry 94 L 92 L 91 L 04/21/18 22:40 04/21/18 22:50 04/21/18 23:00 Temperature Pulse Rate 81 79 77 Respiratory Rate 14 20 15 Blood Pressure 129/58 L 132/60 109/55 L Pulse Oximetry 91 L 90 L 92 L 04/21/18 23:10 04/21/18 23:20 04/21/18 23:30 Temperature Pulse Rate 80 80 76 Respiratory Rate 15 25 H 15 Blood Pressure 117/56 L 119/55 L 118/58 L Pulse Oximetry 90 L 90 L 92 L 04/21/18 23:40 04/21/18 23:50 04/22/18 00:00 Temperature 98.3 F Pulse Rate 76 77 75 Respiratory Rate 14 16 14 Blood Pressure 116/56 L 111/53 L 124/58 L Pulse Oximetry 91 L 91 L 91 L 04/22/18 00:10 04/22/18 00:41 04/22/18 01:00 Temperature Pulse Rate 78 107 H 96 H Respiratory Rate 18 30 H 16 Blood Pressure 140/63 166/81 H Pulse Oximetry 90 L 91 L 90 L 04/22/18 02:00 04/22/18 02:45 04/22/18 03:00 Temperature Pulse Rate 87 98 H 90 Respiratory Rate 17 24 16 Blood Pressure 169/76 H 130/63 Pulse Oximetry 93 L 93 L 93 L 04/22/18 04:00 04/22/18 05:00 04/22/18 05:07 Temperature 98.7 F Pulse Rate 82 104 H 93 H Respiratory Rate 18 45 H 17 Blood Pressure 139/63 202/95 H 180/78 H Pulse Oximetry 91 L 91 L 95 04/22/18 06:00 04/22/18 06:03 Temperature Pulse Rate 86 85 Respiratory Rate 15 14 Blood Pressure 123/62 Pulse Oximetry 89 L 90 L Intake & Output 04/22/18 04/22/18 04/23/18 06:59 18:59 06:59 Intake Total 600 / 600 1240 / 1240 Output Total 1000 / 1000 Balance -400 / -400 1240 / 1240 Weight 91 kg Intake: IV 1000 / 1000 Oral 600 / 600 240 / 240 Output: Urine 1000 / 1000 Other: # Voids 3 Date of Last Bowel Movement 04/19/18 04/22/18 # Bowel Movements 0 - Routine Neurological Exam alert, oriented times three Speech normal . Normal comprehension Cn intact MOTOR 5/5 BUE with no drift - Urinary Catheter Management Straight Cath placed during this visit: no Objective Laboratory Results - last 24 hr 04/19/18 04/22/18 04/22/18 14:19 05:21 05:21 WBC 12.9 H RBC 4.92 Hgb 14.9 Hct 43.6 MCV 88.7 MCH 30.4 MCHC 34.3 RDW 14.4 Plt Count 201 MPV 8.3 Neut % (Auto) 74.3 H Lymph % (Auto) 14.9 [place] % (Auto) 8.6 H Eos % (Auto) 2.0 Baso % (Auto) 0.2 Neut # (Auto) 9.6 H Lymph # (Auto) 1.9 [place] # (Auto) 1.1 H Eos # (Auto) 0.3 Baso # (Auto) 0.0 WBC Differential . Differential Comment Auto diff final Sodium 138 Potassium 3.7 Chloride 101 Carbon Dioxide 26.8 Anion Gap 10 BUN 17 Creatinine 0.90 Estimated GFR 80 L Random Glucose 100 Calcium 9.0 MTS Gel Crossmatch See Detail Review/Management - Diagnosis (1) Acute CVA (cerebrovascular accident) Code(s): I63.9 - Cerebral infarction, unspecified Status: Acute Current Visit: Yes - Review/Management Plan: Neurologically stable s/p right carotid endarterectomy.
[2018-04-23] MEDS: hydroCHLOROthiazide 25 MG Tablet PO SCH (08:18)
[2018-04-23] MEDS: Senna/Docusate Sodium 8.6/50 MG Tablet PO SCH (08:21)
[2018-04-23 08:32] LABS: Baso % (Auto) 0.3 % (0.0-2.0); Eos # (Auto) 0.1 th/mm3 (0.0-0.4); Eos % (Auto) 1.5 % (0.0-4.0); Hemoglobin 13.5 gm/dL (13.0-17.0); Lymph # (Auto) 1.4 th/mm3 (1.0-4.8); Lymph % (Auto) 14.1 % (9.0-44.0); Mean Corpuscular HGB Conc 34.7 % (32.0-36.0); Mean Corpuscular Hemoglobin 30.3 pg (27.0-34.0); Mean Corpuscular Volume 87.2 fL (80.0-100.0); Mean Platelet Volume 8.2 fL (7.0-11.0); Mono # (Auto) 1.1 th/mm3 (0.0-0.9); Mono % (Auto) 11.1 % (0.0-8.0); Neut # (Auto) 7.2 th/mm3 (1.8-7.7); Platelet Count 182 th/mm3 (150-450); Red Blood Count 4.47 mil/mm3 (4.50-5.90); Red Cell Distribution Width 14.1 % (11.6-17.2); White Blood Count 9.9 th/mm3 (4.0-11.0)
[2018-04-23 08:56] LABS: Anion Gap 8 meq/L (5-15); Blood Urea Nitrogen 18 mg/dL (7-18); Calcium 8.2 mg/dL (8.5-10.1); Carbon Dioxide 26.5 meq/L (21.0-32.0); Chloride 104 meq/L (98-107); Glomerular Filtration Rate Greater Than 89 mL/min (>89); Glucose,Random 112 mg/dL (74-106); Potassium 3.6 meq/L (3.5-5.1); Sodium 138 meq/L (136-145)
--- NOTE | 2018-04-23 10:35 | P.PNFP ---
Subjective Interval history: Since our visit yesterday the patient reports he continues to improve. He has been able to get up with his walker and walk to the bathroom. He does note feeling somewhat uncertain of his stability when he stands. He does feel that he would benefit from skilled rehab services prior to returning home. He lives in a single-story home with his . The patient feels that his speech is somewhat improved, less word searching. No pain or shortness of breath. Results - Labs Result diagrams: 04/23/18 06:52 04/23/18 06:52 Abnormal lab results 04/22/18 04/23/18 04/23/18 Range/Units 21:59 06:52 06:52 RBC 4.47 L (4.50-5.90) mil/mm3 Neut % (Auto) 73.0 H (16.0-70.0) % [place] % (Auto) 11.1 H (0.0-8.0) % [place] # (Auto) 1.1 H (0.0-0.9) th/mm3 POC Glucose 124 H (68-110) mg/dl Random Glucose 112 H (74-106) mg/dL Calcium 8.2 L D (8.5-10.1) mg/dL Short CBC 04/23/18 Range/Units 06:52 WBC 9.9 (4.0-11.0) th/mm3 Hgb 13.5 (13.0-17.0) gm/dL Hct 39.0 (39.0-51.0) % Plt Count 182 (150-450) th/mm3 BMP 04/23/18 06:52 Sodium 138 Potassium 3.6 Chloride 104 Carbon Dioxide 26.5 BUN 18 Creatinine 0.81 Calcium 8.2 L D Physical Exam Vital signs: Vital Signs 04/22/18 20:00 04/23/18 00:00 04/23/18 04:00 Temperature 98.9 F 97.3 F L 98.3 F Pulse Rate 87 94 H 89 Respiratory Rate 18 20 18 Blood Pressure 127/68 126/74 137/87 Pulse Oximetry 95 95 95 04/23/18 08:00 Temperature 98 F Pulse Rate 88 Respiratory Rate 16 Blood Pressure 144/87 H Pulse Oximetry 96 Intake & Output 04/22/18 04/23/18 04/23/18 18:59 06:59 18:59 Intake Total 1240 / 1240 240 / 240 Balance 1240 / 1240 240 / 240 Intake: IV 1000 / 1000 Oral 240 / 240 240 / 240 Other: # Voids 2 Date of Last Bowel Movement 04/22/18 04/22/18 04/22/18 Narrative: CONSTITUTIONAL/GEN: normally nourished, in NAD. EYES: conjunctiva normal, PERRLA, EOMI. LUNGS: clear A-P, respiratory effort is normal. CARDIOVASCULAR: RR without murmur or gallop. No significant edema. GI/ABD: soft without masses, without organomegaly. NEURO: Minimal right facial weakness. Speech normalizing. SKIN: color normal, no rashes noted. PSYCH/MENTAL STATUS: Alert and oriented x 3. - Urinary Catheter Management Straight Cath placed during this visit: no Assessment and Plan - Assessment (1) Acute CVA (cerebrovascular accident) Code(s): I63.9 - Cerebral infarction, unspecified Status: Acute Plan: 83-year-old male past medical history of hypertension presented with right- sided weakness and difficulty with speech. Weakness began 2 days prior to admission. [place] that he has had increasing fatigue and difficulty speech for 3 weeks. Found to have multiple small acute infarcts in the left hemisphere CT head: Chronic microvascular disease, patchy white matter disease -Neurology consult: Recommended bedrest and deferred to vascular for intervention. -PT consulted: based on 04/21 not rec physical therapy at rehab. However, pt reports based on this am assessment he can work with physical therapy at home. awaiting updated PT rec -Consulted OT as patient is reporting some difficulty with fine movements of his hands, improved -Neuroimaging as above, MRI brain showing multiple small acute infarcts in the left hemisphere including in the left occipital lobe and deep white matter of the left periventricular region all measuring 1 cm or less in diameter. -2D echo showing LV systolic function hyperdynamic with and eEF of 65-70%, no regional wall motion abnormalities -Neuro checks q4hrs -Continue Atorvastatin 80 and aspirin 81 mg and Plavix 75 mg daily Continuous cardiac telemetry - Patient is s/p Right internal carotid endarterectomy patch angioplasty on by Dr. Oakes. This am pt slurred speech improving and mild difficulty findings words, cranial nerves intact (unable to sustain left horizantal gaze with H test) and 5 /5 strength in all ext with normal sensation. 04/23/18 Patient continues to improve in his neurologic status. He has some generalized weakness which should improve with skilled rehab services. Both patient and family are agreeable to interval skilled rehab prior to returning home. (2) Internal carotid artery stenosis Code(s): I65.29 - Occlusion and stenosis of unspecified carotid artery Status : Acute Plan: Neck CTA showing high-grade 70% stenosis of the proximal right ICA Vascular surgery consulted: Recommended starting Plavix daily (75mg po QD) - s/p Right internal carotid endarterectomy patch angioplasty on 04/20/[address] Oakes. -Patient okay to be discharged from vascular surgery standpoint. (3) Hypertension Code(s): I10 - Essential (primary) hypertension Status: Acute Plan: BPs ranging 120-200s/60-90 -Clonidine 0.1mg PRN BP>220/120 -Resumed home meds of losartan HCTZ Continue to monitor blood pressures throughout the afternoon and consider updating blood pressure medication if needed. (4) Nutrition, metabolism, and development symptoms Code(s): R63.8 - Other symptoms and signs concerning food and fluid intake Status: Acute Plan: Fluids: per PO Diet: Cardiac diet Electolytes: Monitor and replete as needed DVT ppx: lovenox
[2018-04-23] MEDS: Enoxaparin Inj 40 MG/0.4 ML Syringe SQ SCH (17:44)
[2018-04-24] MEDS: Senna/Docusate Sodium 8.6/50 MG Tablet PO SCH ×2 (00:35→09:08)
--- NOTE | 2018-04-24 07:39 | P.PNADD ---
Addendum to Inpatient Note Reason for Addendum: Additional Documentation Additional information: Called to evaluate the patient after a fall. This occurred at 0530 this morning. He was walking with his walker when he tripped and fell over the threshold to the bathroom. He did hit his head and elbow on the way down. He denies loss of consciousness, dizziness, lightheadedness, or confusion after the fall. The nurse was called into the room by his to assist, then we were called to evaluate. Vitals: HR 90, RR 18, BP 150/90 Exam: General: alert, no acute distress Cardiac: RRR w/o murmur Pulmonary: CTA b/l w/o increased WOB Neuro: right facial droop, RUE 5/5 strength, RLE 4/5 strength, left extremities 5/5 strength. Some mild word finding difficulties seem to persist. Extremities: Right superficial elbow hematoma that is new. [id number] His neurological status is stable when compared with prior exams. Due to his high risk for subdural hematoma we have ordered a CT scan without contrast to be performed. The hematoma on his right elbow appears significant but is without active bleeding.
[2018-04-24] MEDS: hydroCHLOROthiazide 25 MG Tablet PO SCH (09:09)
[2018-04-24 09:43] LABS: Baso % (Auto) 0.2 % (0.0-2.0); Eos # (Auto) 0.1 th/mm3 (0.0-0.4); Hematocrit 40.3 % (39.0-51.0); Lymph # (Auto) 1.3 th/mm3 (1.0-4.8); Lymph % (Auto) 12.9 % (9.0-44.0); Mean Corpuscular HGB Conc 34.7 % (32.0-36.0); Mean Corpuscular Hemoglobin 30.2 pg (27.0-34.0); Mean Corpuscular Volume 87.2 fL (80.0-100.0); Mean Platelet Volume 8.1 fL (7.0-11.0); Mono # (Auto) 0.8 th/mm3 (0.0-0.9); Mono % (Auto) 8.4 % (0.0-8.0); Neut # (Auto) 7.9 th/mm3 (1.8-7.7); Neut % (Auto) 77.5 % (16.0-70.0); Platelet Count 203 th/mm3 (150-450); Red Blood Count 4.63 mil/mm3 (4.50-5.90); Red Cell Distribution Width 14.2 % (11.6-17.2); White Blood Count 10.1 th/mm3 (4.0-11.0)
[2018-04-24 10:03] LABS: Anion Gap 9 meq/L (5-15); Blood Urea Nitrogen 16 mg/dL (7-18); Calcium 8.7 mg/dL (8.5-10.1); Chloride 102 meq/L (98-107); Glomerular Filtration Rate Greater Than 89 mL/min (>89); Glucose,Random 115 mg/dL (74-106); Potassium 3.4 meq/L (3.5-5.1); Sodium 137 meq/L (136-145)
--- NOTE | 2018-04-24 10:24 | CT ---
EXAM DATE: 04/24/2018 9:33 AM EST AGE/SEX: 83 years / Male INDICATIONS: Fall from standing CLINICAL DATA: This is the patient's initial encounter. Patient reports that signs and symptoms have been present for 1 day and indicates a pain score of 0/10. MEDICAL/SURGICAL HISTORY: Hypertension. Carotid artery stenosis . Knee surgery RADIATION DOSE: 39.64 CTDI (mGy) COMPARISON: C, CT HEAD W/O CONTRAST, 04/17/2018. C, MRA HEAD W/O CONTRAST, 04/17/2018. . TECHNIQUE: CT of the head without contrast. Using automated exposure control and adjustment of the mA and/or kV according to patient size, radiation dose was kept as low as reasonably achievable to ob tain optimal diagnostic quality images. DICOM format image data is available electronically for revi ew and comparison. FINDINGS: Cerebrum: The ventricles are normal for age. No evidence of midline shift, mass lesion, hemorrhage or acute infarction. No extraaxial fluid collections are seen. Posterior Fossa: The cerebellum and brainstem are intact. The 4th ventricle is midline. The cerebe llopontine angle is unremarkable. Extracranial: The visualized portion of the orbits is intact. Skull: The calvaria is intact. No evidence of skull fracture. CONCLUSION: 1. Negative CT Head non contrast. . Electronically signed by: January Loomis MD 04/24/2018 10:23 AM EST
--- NOTE | 2018-04-24 10:34 | P.PNFP ---
Subjective Interval history: Patient seen and examined at bedside this morning. Patient suffered a fall overnight while he was in the bathroom. Patient advised to call nurse to help with ambulation. Patient denies any complaints or symptoms at the moment. States he feels well. Denies any loss of consciousness during the fall. Denies any pain anywhere his body. Denies fever, chills, dizziness, headache, chest pain, shortness of breath, nausea, vomiting, vertigo or abdominal pain. Please see addendum note for more detail on assessment after fall. Pending results of repeat noncontrast head CT. <Bennett Oneil - 04/24/18 13:34> Results - Labs Result diagrams: 04/24/18 09:00 04/24/18 09:00 <Shaila Nathan - 04/26/18 11:29> Abnormal lab results 04/24/18 04/24/18 Range/Units 09:00 09:00 Neut % (Auto) 77.5 H (16.0-70.0) % [place] % (Auto) 8.4 H (0.0-8.0) % Neut # (Auto) 7.9 H (1.8-7.7) th/mm3 Potassium 3.4 L (3.5-5.1) meq/L Random Glucose 115 H (74-106) mg/dL Short CBC 04/24/18 Range/Units 09:00 WBC 10.1 (4.0-11.0) th/mm3 Hgb 14.0 (13.0-17.0) gm/dL Hct 40.3 (39.0-51.0) % Plt Count 203 (150-450) th/mm3 [facility] 04/24/18 09:00 Sodium 137 Potassium 3.4 L Chloride 102 Carbon Dioxide 26.0 BUN 16 Creatinine 0.82 Calcium 8.7 <Bennett Oneil - 04/24/18 10:34> - Imaging Impressions Head CT 04/24/18 00:00 CONCLUSION: 1. Negative CT Head non contrast. . <Bennett Oneil - 04/24/18 10:34> Physical Exam Vital signs: Vital Signs 04/23/18 12:00 04/23/18 16:00 04/23/18 20:00 Temperature 97.8 F 98.5 F 98.3 F Pulse Rate 86 90 95 H Respiratory Rate 15 12 20 Blood Pressure 128/77 129/75 144/63 H Pulse Oximetry 96 96 95 04/24/18 00:00 04/24/18 04:00 04/24/18 05:39 Temperature 98.4 F 97.2 F L 97.9 F Pulse Rate 93 H 92 H 104 H Respiratory Rate 20 20 20 Blood Pressure 160/77 H 162/84 H 171/90 H Pulse Oximetry 97 97 95 04/24/18 06:37 04/24/18 08:00 Temperature 98.2 F 97.9 F Pulse Rate 90 84 Respiratory Rate 18 16 Blood Pressure 150/90 H 147/81 H Pulse Oximetry 93 L 96 Intake & Output 04/23/18 04/24/18 04/24/18 18:59 06:59 18:59 Intake Total 480 / 480 Balance 480 / 480 Intake: Oral 480 / 480 Other: Date of Last Bowel Movement 04/23/18 04/23/18 # Bowel Movements 2 <Bennett Oneil D - 04/24/18 10:34> Narrative: CONSTITUTIONAL/GEN: normally nourished, in NAD. Head: Nontender to palpation, no lacerations or bruises noted Neck: Full range of motion, supple EYES: conjunctiva normal, PERRLA, EOMI. LUNGS: clear A-P, respiratory effort is normal. CARDIOVASCULAR: RR without murmur or gallop. No significant edema. GI/ABD: soft without masses, without organomegaly. NEURO: Minimal right facial weakness. Speech normalizing. Cranial nerves II through XII intact, oriented X3, moving all extremities, normal tone, vision grossly intact, facial asymmetry (mild right facial droop), normal speech ( slightly slurred speech, improved). SKIN: color normal, Scattered ecchymosis noted on upper extremities, worse on right elbow from fall this morning however it is stable not actively bleeding and with bandage in place PSYCH/MENTAL STATUS: Alert and oriented x 3. <Bennett Oneil - 04/24/18 13:34> - Urinary Catheter Management Straight Cath placed during this visit: no <Shaila Nathan R - 04/26/18 11:29> no <Bennett Oneil D - 04/24/18 13:34> Assessment and Plan - Assessment (1) Acute CVA (cerebrovascular accident) Code(s): I63.9 - Cerebral infarction, unspecified Status: Acute (2) Internal carotid artery stenosis Code(s): I65.29 - Occlusion and stenosis of unspecified carotid artery Status : Acute (3) Hypertension Code(s): I10 - Essential (primary) hypertension Status: Acute (4) Fall Code(s): W19.XXXA - Unspecified fall, initial encounter Status: Acute (5) Nutrition, metabolism, and development symptoms Code(s): R63.8 - Other symptoms and signs concerning food and fluid intake Status: Acute <Shaila Nathan R - 04/26/18 11:29> (1) Acute CVA (cerebrovascular accident) Code(s): I63.9 - Cerebral infarction, unspecified Status: Acute Plan: 83-year-old male past medical history of hypertension presented with right- sided weakness and difficulty with speech. Weakness began 2 days prior to admission. [place] that he has had increasing fatigue and difficulty speech for 3 weeks. Found to have multiple small acute infarcts in the left hemisphere CT head: Chronic microvascular disease, patchy white matter disease -Neurology consult: Recommended bedrest and deferred to vascular for intervention. -PT consulted: based on 04/21 not rec physical therapy at rehab. However, pt reports based on this am assessment he can work with physical therapy at home. awaiting updated PT rec -Consulted OT as patient is reporting some difficulty with fine movements of his hands, improved -Neuroimaging as above, MRI brain showing multiple small acute infarcts in the left hemisphere including in the left occipital lobe and deep white matter of the left periventricular region all measuring 1 cm or less in diameter. -2D echo showing LV systolic function hyperdynamic with and eEF of 65-70%, no regional wall motion abnormalities -Neuro checks q4hrs -Continue Atorvastatin 80 and aspirin 81 mg and Plavix 75 mg daily Continuous cardiac telemetry - Patient is s/p Right internal carotid endarterectomy patch angioplasty on by Dr. Oakes. This am pt slurred speech improving and mild difficulty findings words, cranial nerves intact (unable to sustain left horizantal gaze with H test) and 5 /5 strength in all ext with normal sensation. Patient continues to improve in his neurologic status. He has some generalized weakness which should improve with skilled rehab services. Both patient and family are agreeable to interval skilled rehab prior to returning home. (2) Internal carotid artery stenosis Code(s): I65.29 - Occlusion and stenosis of unspecified carotid artery Status : Acute Plan: Neck CTA showing high-grade 70% stenosis of the proximal right ICA Vascular surgery consulted: Recommended starting Plavix daily (75mg po QD) - s/p Right internal carotid endarterectomy patch angioplasty on 04/20/[address] Oakes. -Patient okay to be discharged from vascular surgery standpoint. (3) Hypertension Code(s): I10 - Essential (primary) hypertension Status: Acute Plan: -Clonidine 0.1mg PRN BP>220/120 -Resumed home meds of losartan HCTZ Continue to monitor blood pressures throughout the afternoon and consider updating blood pressure medication if needed. (4) Fall Code(s): W19.XXXA - Unspecified fall, initial encounter Status: Acute Plan: Patient suffered a fall this morning while in the bathroom Patient is currently asymptomatic denies any pain Stable neuro exam Fall precautions Noncontrast head CT negative (5) Nutrition, metabolism, and development symptoms Code(s): R63.8 - Other symptoms and signs concerning food and fluid intake Status: Acute Plan: Fluids: per PO Diet: Cardiac diet Electolytes: Monitor and replete as needed DVT ppx: lovenox Disposition: Physical therapy at rehab. <Bennett Oneil - 04/24/18 13:23> - Attending Attestation This patient was seen and examined. The assessment and plan was discussed with the resident physician and I am in agreement with continued medical care as documented in this encounter. SHAILA NATHAN MD <Shaila Nathan - 04/26/18 11:29>
[2018-04-24 13:48] VITALS: BP 162/80; PULSE 103; RESP 18; TEMP 98.7; O2SAT 95
--- NOTE | 2018-04-29 13:09 | P.DS ---
Date of admission: 04/19/18 15:21 Primary care physician: UNKNOWN Brief History from admission: 83-year-old male past medical history of hypertension presents to the ED with 2- day history of right-sided weakness and difficulty with speech. He said 3 weeks ago he noticed he had increased fatigue and difficulty finding words. He said it was difficult for him to say the correct words as well as remember words for priors. He also had difficulty performing tasks that involved math or calculations. About a week ago he noticed some decreased blurry vision from his right eye in the right peripheral area but that has resolved. In 2 weeks ago he woke up with weakness of his right arm and right leg. He said he noticed he was dropping things such as a month this morning with his right hand. And he was nervous about falling given his right leg weakness. Did not have any falls. He says that he feels like the weakness has been getting worse as well as the difficulty with speech. He also states that the fatigue has been getting worse. He came to the ED because of the continued symptoms. Has had previous surgery on his right leg. He does not use any devices for assistance with walking. He denied any headaches, dizziness, chest pain, shortness of breath, or palpitations. He denies any fevers or weight loss. He has had some constipation for the past week and took MiraLAX and had a bowel movement yesterday. Usually he goes daily. He has had some decreased appetite but has been drinking well. He said he has had some nasal congestion but no other recent illness. PMH: BPH, HTN meds: Aleve at night and Tylenol in the morning for knee pain, valsartan-HCTZ, tamsulosin SH: arthroscopic surgery of right knee Allergies: none Family history: diabetes (sister), stroke (mom) Social: quit smoking 40 yrs ago smoked 1ppd for 20yrs, no alcohol use, Lives at home with son and and grandchildren DS: Diagnosis - Discharge Diagnosis (1) Acute CVA (cerebrovascular accident) Status: Acute (2) Internal carotid artery stenosis Status: Acute (3) Hypertension Status: Acute (4) Fall Status: Acute (5) Nutrition, metabolism, and development symptoms Status: Acute DS: Medications - Discharge Medications Prescriptions: aspirin 81 mg PO DAILY 30 Days #30 tab atorvastatin 80 mg PO DAILY 30 Days #30 tab clopidogrel [Plavix] 75 mg PO DAILY 30 Days #30 tab DS: Summary Hospital Course: 83-year-old male past medical history of hypertension presented to the ED with 2 -day history of right-sided weakness and difficulty with speech. CT head was negative but MRI head revealed multiple small acute infarcts in the left hemisphere including in the left occipital lobe and deep white matter of the left periventricular region all measuring 1 cm or less in diameter. Echo showing LV systolic function hyperdynamic with and eEF of 65-70%, no regional wall motion abnormalities. Neurology was consulted and patient was placed on stroke protocol. pt placed on asa, high intensity statin and plavix QD. CTA neck showed: Occlusion of the left internal carotid artery above the bifurcation with reconstitution of some flow distally in the petrous and cavernous portion. High-grade approximately 70% stenosis proximal right internal carotid artery, hemodynamically significant considering findings on the left. Vascular surgery was consulted and Right carotid endarterectomy was recommended. Patient underwent right carotid endarterectomy on 04/20/18 without complications. Physical therapy recommended continual therapy at inpatient rehab facility. Neurological status improved throughout hospitalization. The night prior to discharge patient suffered a fall after tripping while going to the bathroom, however repeat CT head was negative and neuro exam remained stable. Patient was discharge to rehab facility and was hemodynamically stable upon discharge. Patient advised to f/u with pcp. - Time Spent with Patient Total time spent providing and/or coordinating discharge services: Greater than 30 minutes - Quality: VTE Deep Vein Thrombosis/Pulmonary Embolism Present on Admission: No Exam Narrative: CONSTITUTIONAL/GEN: normally nourished, in NAD. Head: Nontender to palpation, no lacerations or bruises noted Neck: Full range of motion, supple EYES: conjunctiva normal, PERRLA, EOMI. LUNGS: clear A-P, respiratory effort is normal. CARDIOVASCULAR: RR without murmur or gallop. No significant edema. GI/ABD: soft without masses, without organomegaly. NEURO: Minimal right facial weakness. Speech normalizing. Cranial nerves II through XII intact, oriented X3, moving all extremities, normal tone, vision grossly intact, facial asymmetry (mild right facial droop), normal speech ( slightly slurred speech, improved). SKIN: color normal, Scattered ecchymosis noted on upper extremities, worse on right elbow from fall this morning however it is stable not actively bleeding and with bandage in place PSYCH/MENTAL STATUS: Alert and oriented x 3 Results Procedures completed during hospitalization: right carotid endarterectomy on 04/20/18 Completed studies during hospitalization: Pending at discharge 04/20/18 08:48 Surgical [PTH] Routine - Impressions ITS Impressions Carotid Doppler Study 04/17/18 00:00 CONCLUSION: Technically difficult exam. Unable to obtain color Doppler and the left internal carotid artery. Cannot exclude occlusion. This would be better evaluated with CTA. No hemodynamically significant stenosis identified on the right. Neck CTA 04/17/18 00:00 CONCLUSION: 1. 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 2. High-grade approximately 70% stenosis proximal right internal carotid artery , hemodynamically significant considering findings on the left. Head MRI 04/17/18 15:19 CONCLUSION: 1. Multiple small acute infarcts in the left hemisphere including in the left occipital lobe and deep white matter of the left periventricular region all measuring 1 cm or less in diameter. Head MRA 04/17/18 15:19 CONCLUSION: 1. Occlusion of the left internal carotid artery with absent flow distally. Poor reconstitution of flow in the left middle cerebral artery with a probable focus stenosis in the distal left MCA. 2. The anterior cerebral, posterior cerebral and right middle cerebral artery are patent. Head CT 04/24/18 00:00 CONCLUSION: 1. Negative CT Head non contrast. . Discharge Plan - Discharge Disposition Patient Disposition: 62 Rehab Inpatient - Discharge Condition Condition: Fair - Discharge Order Discharge Orders: Discharge Order (Routine); Ordered 04/24/18 Ordered By: Bennett Oneil - Discharge Details Anticipated Discharge Date: 04/24/18 - Physicians Team Primary Care Provider: UNKNOWN, Attending Provider: Antoine Nathan Other Providers: Brayan Dang MD, PhD ; Scot Oakes MD ; [facility] ; [facility],Agency
== END 2018-04-24 14:14 | DRG 38 ==
LOC: NEPC 12:22 → NEDA 14:58 → INTOOBSV 14:58 → N05 16:09 → N03 04-20 14:39 → N05 04-22 18:28
PROVIDERS: ADMIT Family Medicine; ATTEND Family Medicine
CPT/HCPCS: 70450; 70498; 70544; 70551; 80048; 80053; 80061; 81001; 82948; 82962; 84443; 84484; 85025; 85610; 86850; 86900; 86901; 86923; 88304; 88305; 88311; 90774; 90784; 93005; 93308; 93880; 96374; 97110; 97162; 97164; 97167; 97168; 97530; 99285; C1713; C1768; C8952; J0690; J1100; J1644; J1650; J2270; J2370; J2405; J2704; J2720; J3010; J7030; J7040; J7050; J7120; Q9967

== ENCOUNTER 2018-05-11 15:10 | Inpatient (IN) ==
[2018-05-11] MEDS ORDERED: Gadobutrol PF 10 MMOL/10 ML Vial (for RAD) IV.SIG ONE (15:11)
--- NOTE | 2018-05-11 15:26 | ED ---
HPI General Chief Complaint: Stroke Alert Stated Complaint: stroke alert/evac Time Seen by Provider: 05/11/18 15:14 Source: patient and EMS Mode of arrival: EMS Limitations: other History of Present Illness HPI Narrative: The patient is a 83-year-old male who presents to the emergency department via EMS as a stroke alert. According to EMS the patient is currently at a rehabilitation center after suffering a stroke 3 weeks ago. The patient had a stroke which left him with right-sided deficits and mild dysarthria according to EMS. The patient underwent right carotid endarterectomy for 70% stenosis and was noted to have 100% stenosis on the left side at that time. The patient was doing well until this morning when at 10:30 AM his speech once again became garbled. They also noted the patient had increasing weakness to the right side of the body, especially the right arm. Confirmation of timing is provided by EMS from snf staff and apparently family that was at the snf this morning. Symptoms are moderate to severe, constant, and there are no current alleviating factors. Time: 10:30 Timing confirmed by: other Location: Reports speech, dysarthria and right arm History of same: Yes Severity: severe Quality: Reports weak Relieving factors: none Exacerbating factors: none Context: Reports sudden onset On Anticoagulants: Yes Treatments Prior to Arrival: Reports none Related Data Home Medications Medication Instructions Recorded Confirmed tamsulosin 0.4 mg PO DAILY 04/17/18 05/11/18 valsartan-hydrochlorothiazide 1 tab PO DAILY 04/17/18 05/11/18 Previous Rx's Medication Instructions Recorded aspirin 81 mg PO DAILY 30 Days #30 tab 04/24/18 atorvastatin 80 mg PO DAILY 30 Days #30 tab 04/24/18 clopidogrel [Plavix] 75 mg PO DAILY 30 Days #30 tab 04/24/18 Allergies Allergy/AdvReac Type Severity Reaction Status Date / Time No Known Allergies Allergy Verified 04/17/18 12:44 Review of Systems ROS: all other systems reviewed are negative [facility] Medical History Medical History Cerebral infarct (Acute) Constipation (Acute) Muscle weakness (generalized) (Acute) Occlusion and stenosis of other cerebral arteries (Acute) Occlusion and stenosis of right carotid artery (Acute) HTN (hypertension) (Acute) Surgical History Surgical History H/O carotid endarterectomy (Acute) H/O arthroscopic knee surgery (Acute) Social History Social History Substance History: No History of Abuse Second Hand Smoke Exposure: No Smoking Status: Former smoker How Often Do You Have a Drink Containing Alcohol: Never Recent Travel in [facility] within the Last 8 Weeks: No Recent Out of Country Travel within the Last 8 Weeks: No Exam Narrative Exam Narrative: GENERAL: Awake, alert, 83-year-old male who appears his stated age and is in no acute respiratory distress. SKIN: Focused skin assessment warm/dry. HEAD: Atraumatic. Normocephalic. EYES: Pupils equal and round. 2 mm bilateral and reactive. EOMs are intact. Visual lyman appear decreased on the right aspect of the body. ENT: No nasal bleeding or discharge. Mucous membranes pink and moist. NECK: Trachea midline. No JVD. CARDIOVASCULAR: Regular rate and rhythm. No murmur appreciated. RESPIRATORY: No accessory muscle use. Clear to auscultation. Breath sounds equal bilaterally. GASTROINTESTINAL: Abdomen soft, non-tender, nondistended. Hepatic and splenic margins not palpable. MUSCULOSKELETAL: No obvious deformities. No clubbing. No cyanosis. No edema. NEUROLOGICAL: Awake and alert. Asymmetric smile with right facial droop. Dysarthria noted, appears to have small amount of receptive aphasia. Drift to the right upper extremity, does not fall to the bed. Drift of the right lower extremity. Sensation appears symmetric on the arms, legs, and face bilaterally. Patient had difficulty performing finger to nose and heel to barker with instruction. He was able to identify my hand and tell me that I had 2 fingers in front of him, however, cannot tell me his name or the current year. Patient appeared to have some right-sided neglect. PSYCHIATRIC: Appropriate mood and affect; insight and judgment normal. Course Initial Documented Vital Signs Pulse Rate 97 H 05/11/18 15:56 Respiratory Rate 18 05/11/18 15:56 Blood Pressure 138/60 05/11/18 15:56 Pulse Oximetry 91 L 05/11/18 15:56 Last Documented Vital Signs Pulse Rate 103 H 05/11/18 17:00 Respiratory Rate 20 05/11/18 17:00 Blood Pressure 146/105 H 05/11/18 17:00 Pulse Oximetry 98 05/11/18 17:00 NIH Stroke Scale NIH Stroke Scale Level of Consciousness: 0-Alert Orientation Questions: 1-One task correct Responds to Commands: 1-One task correct Gaze Eye Movement: 0-Horizontal movement WNL Visual Lyman: 1-Partial hemianopia Facial Movement: 1-Minor facial palsy Motor Functions Arm LEFT: 0-No drift Motor Functions Arm RIGHT: 1-Drift before 10 seconds Motor Functions Leg LEFT: 0-No drift Motor Functions Leg RIGHT: 1-Drift before 5 seconds Limb Ataxia: 2-Ataxia in two limbs Sensory Loss: 0-No sensory loss Best Language: 1-Mild aphasia Articulation: 1-Mild dysarthia Extinction or Inattention Sensory: 1-Loss 1 sensory modality Total: 11 Medical Decision Making MDM Narrative Medical decision making narrative: IV was established, labs are drawn and sent, and the patient was placed on cardiac telemetry monitoring and continuous pulse oximetry monitoring. A stroke assessment was obtained, the patient stroke scale was 11, dysarthria and receptive aphasia. New, the patient is outside the three-hour window, but may be a candidate for interventional radiology. I discussed the patient with the on-call neurologist, Dr. Serrato, who agrees with CTA. It appears the patient the patient is currently on aspirin and Plavix. I did review the EMR, the patient had a right carotid endarterectomy on his previous admission, the left side was 100% occluded. The patient went immediately to CT for CT and CTA of the head and neck. CT and CTA revealed no acute changes. The patient was evaluated by neurology who has ordered an MRI and recommends admission as patient may need a change in anticoagulation and possible loop recorder for continuing strokes despite anticoagulation with aspirin and Plavix. The on-call medical service was paged for admission. Medical Screen Exam Complete: Yes Emergency Medical Condition: Yes Differential Diagnosis Differential Diagnosis: Differential diagnosis includes CVA, intracranial hemorrhage, reocclusion of the carotid, embolism, thrombosis, delirium, subarachnoid hemorrhage, intraparenchymal hemorrhage. Lab Data Result diagrams: 05/11/18 15:11 Lab Results 05/11/18 05/11/18 05/11/18 Range/Units 15:11 15:11 15:11 WBC 15.4 H (4.0-11.0) th/mm3 RBC 3.35 L (4.50-5.90) mil/mm3 Hgb 10.1 L (13.0-17.0) gm/dL POC Hgb (Calc) 10.2 L (13.0-17.0) g/dL Hct 28.8 L (39.0-51.0) % POC Hct 30.0 L (39-51.0) % MCV 86.1 (80.0-100.0) fL MCH 30.1 (27.0-34.0) pg MCHC 35.0 (32.0-36.0) % RDW 14.0 (11.6-17.2) % Plt Count 287 (150-450) th/mm3 MPV 7.5 (7.0-11.0) fL Prelim Diff (Auto) Slide review pending Neut % (Auto) 77.6 H (16.0-70.0) % Lymph % (Auto) 13.0 (9.0-44.0) % [place] % (Auto) 8.1 H (0.0-8.0) % Eos % (Auto) 1.0 (0.0-4.0) % Baso % (Auto) 0.3 (0.0-2.0) % Neut # (Auto) 12.0 H (1.8-7.7) th/mm3 Lymph # (Auto) 2.0 (1.0-4.8) th/mm3 [place] # (Auto) 1.3 H (0.0-0.9) th/mm3 Eos # (Auto) 0.1 (0.0-0.4) th/mm3 Baso # (Auto) 0.1 (0.0-0.2) th/mm3 WBC Differential . Diff Scan Auto diff confirmed Differential Comment . Platelet Estimate Normal (Normal) Platelet Morphology Normal (Normal) PT 10.9 (9.8-11.6) sec INR 1.1 Ratio APTT 27.9 (23.4-31.7) sec Fibrinogen 412 H (227-377) mg/dL POC Sodium 129 L (137-144) mmol/L POC Potassium 4.1 (3.6-5.0) mmol/L POC Chloride 92 L (102-111) mmol/L POC BUN 20 (5-21) mg/dL POC Creatinine 0.7 (0.6-1.3) mg/dL POC Glucose 115 H (68-110) mg/dL Total Creatine Kinase 88 (39-308) U/L Troponin I Less than 0.02 L (0.02-0.05) ng/mL Imaging Data Radiologist's impression: Chest X-Ray 05/11/18 15:17 CONCLUSION: 1. Probable medial right lower lung zone atelectasis. Head CT 05/11/18 15:17 CONCLUSION: 1. No acute intracranial abnormality is identified. 2. Stable chronic findings include mild generalized atrophy and asymmetric periventricular white matter low-attenuation. These findings were relayed in person by the fastener technologist to Dr. Muñoz on 05/11/2018 at approximately 3:39 PM. Head CTA 05/11/18 15:17 CONCLUSION: 1. Left internal carotid occlusion, similar to what was seen on 04/17/2018. . Neck CTA 05/11/18 15:17 CONCLUSION: Chronic occlusion of the left internal carotid artery. Previous right endarterectomy without evidence of recurrent stenosis. 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 ECG Data EKG Prior to Arrival: No Attestation: I personally reviewed and interpreted this ECG as follows: Interpretation: EKG reveals normal sinus rhythm with a rate of 98, Q wave noted in lead III. Discharge Plan Discharge Disposition Patient Disposition: ED Admit(ED Internal Use Only) Discharge Condition Condition: Stable Discharge Order Discharge Orders: ED Use Only Admit Order (Routine); Ordered 05/11/18 Ordered By: Luis Miguel Muñoz Discharge Details Diagnosis: Acute CVA (cerebrovascular accident), Dysarthria Physicians Team ED Provider: Luis Miguel Muñoz Primary Care Provider: UNKNOWN, Attending Provider: Facundo Thomas Other Providers: Malachi Serrato ; Theresa Cao Discharge Interventions Interventions: Vital Signs Last Done: 05/11/18 17:00 Status ED Status: Admitted Patient
[2018-05-11 15:29] LABS: Baso # (Auto) 0.1 th/mm3 (0.0-0.2); Baso % (Auto) 0.3 % (0.0-2.0); Eos # (Auto) 0.1 th/mm3 (0.0-0.4); Hematocrit 28.8 % (39.0-51.0); Hemoglobin 10.1 gm/dL (13.0-17.0); Mean Corpuscular Hemoglobin 30.1 pg (27.0-34.0); Mean Corpuscular Volume 86.1 fL (80.0-100.0); Mean Platelet Volume 7.5 fL (7.0-11.0); Mono # (Auto) 1.3 th/mm3 (0.0-0.9); Mono % (Auto) 8.1 % (0.0-8.0); Neut % (Auto) 77.6 % (16.0-70.0); Platelet Count 287 th/mm3 (150-450); Red Blood Count 3.35 mil/mm3 (4.50-5.90); White Blood Count 15.4 th/mm3 (4.0-11.0)
[2018-05-11] MEDS ORDERED: Sod Chloride 0.9% Inj 1,000 ML IV.CONT SCH (15:30)
[2018-05-11 15:40] LABS: Activated Partial Thrombo Time 27.9 sec (23.4-31.7); INR 1.1 Ratio; Prothrombin Time 10.9 sec (9.8-11.6)
--- NOTE | 2018-05-11 15:40 | CT ---
EXAM DATE: 05/11/2018 3:28 PM EST AGE/SEX: 83 years / Male INDICATIONS: Stroke alert, right side weakness. CLINICAL DATA: This is the patient's initial encounter. Patient reports that signs and symptoms have been present for 1 day and indicates a pain score of Nonresponsive. MEDICAL/SURGICAL HISTORY: Non-responsive. Non-responsive. RADIATION DOSE: 35.80 CTDI (mGy) COMPARISON: [facility], CT HEAD W/O CONTRAST, 04/24/2018. . TECHNIQUE: CT of the head without contrast. Using automated exposure control and adjustment of the mA and/or kV according to patient size, radiation dose was kept as low as reasonably achievable to ob tain optimal diagnostic quality images. DICOM format image data is available electronically for revi ew and comparison. FINDINGS: Cerebrum: There is mild generalized atrophy and ventricles are normal given the degree of atrophy. M ild periventricular white matter change is present. The periventricular white matter changes are asym metric being greater on the left than right but overall stable. No midline shift, mass lesion, hemorr campos or acute infarction. No extraaxial fluid collections are seen. There is calcification of the in tracranial internal carotid arteries. Posterior Fossa: The cerebellum and brainstem demonstrate no acute abnormality. The 4th ventricle is midline. The cerebellopontine angle is within normal limits. Extracranial: The visualized sinuses are clear. Skull: The calvaria is intact. No skull fracture. CONCLUSION: 1. No acute intracranial abnormality is identified. 2. Stable chronic findings include mild generalized atrophy and asymmetric periventricular white mat ter low-attenuation. These findings were relayed in person by the ocular care technologist to Dr. Muñoz on 05/11/[address] [facility] 3:39 PM. Electronically signed by: Rick Batista MD 05/11/2018 3:39 PM EST
--- NOTE | 2018-05-11 15:55 | CT ---
EXAM DATE: 05/11/2018 3:47 PM EST AGE/SEX: 83 years / Male INDICATIONS: Stroke alert, right side weakness. CLINICAL DATA: This is the patient's initial encounter. Patient reports that signs and symptoms have been present for 1 day and indicates a pain score of Nonresponsive. MEDICAL/SURGICAL HISTORY: Non-responsive. Carotid endarterectomy. RADIATION DOSE: 22.70 CTDI (mGy) ; Combined studies COMPARISON: [facility], CTA NECK W CONTRAST W 3D, 05/11/2018. . TECHNIQUE: Volumetric scanning was performed using a multi-row detector CT scanner during bolus infu joey of 98 ml Visipaque 320 (iodixanol) nonionic water-soluble contrast as a cumulative dose for mul tiple exams. The data was post processed with a variety of visualization algorithms including full volume maximum intensity projection, multi-planar sliding thin slab reformation, curved planar reform ation, and surface rendering techniques. Using automated exposure control and adjustment of the mA a nd/or kV according to patient size, radiation dose was kept as low as reasonably achievable to obtain optimal diagnostic quality images. DICOM format image data is available electronically for review a nd comparison. FINDINGS: Occlusion of the left internal carotid with collateral filling from the right. No intracranial major branch vessel occlusion. CONCLUSION: 1. Left internal carotid occlusion, similar to what was seen on 04/17/2018. . Electronically signed by: Sanya Lei MD 05/11/2018 3:54 PM EST
[2018-05-11 15:58] LABS: Creatine Kinase 88 U/L (39-308)
--- NOTE | 2018-05-11 16:27 | CT ---
EXAM DATE: 05/11/2018 4:14 PM EST AGE/SEX: 83 years / Male INDICATIONS: Stroke alert, right side weakness. CLINICAL DATA: This is the patient's initial encounter. Patient reports that signs and symptoms have been present for 1 day and indicates a pain score of Nonresponsive. MEDICAL/SURGICAL HISTORY: Non-responsive. . nephrectomy RADIATION DOSE: 22.70 CTDI (mGy) ; Combined studies COMPARISON: No prior exams available for comparison. TECHNIQUE: Volumetric scanning was performed using a multirow detector CT scanner during bolus infus ion of 98 ml Visipaque 320 (iodixanol) nonionic water-soluble contrast as a cumulative dose for mult iple exams. The data was postprocessed with a variety of visualization algorithms including full-vo lume maximum intensity projection, multiplanar sliding thin-slab reformation, curved-planar reformati on, and surface-rendering techniques. Using automated exposure control and adjustment of the mA and/ or kV according to patient size, radiation dose was kept as low as reasonably achievable to obtain op timal diagnostic quality images. DICOM format image data is available electronically for review and comparison. Percent stenosis is calculated using the diameter of the stenotic region over the diameter of the nor mal distal internal carotid artery. FINDINGS: No abnormality is identified within the lung apices. There is normal origin of vessels from the arch without evidence of proximal stenosis. The left vertebral artery is dominant. Examination of the right common carotid artery demonstrates the vessel to be widely patent. There is previous right carotid under endarterectomy without evidence of recurrent stenosis. More distally the cervical internal carotid artery is intact. Examination of the left common carotid artery demonstrates the vessel to be widely patent. There is c omplete occlusion of the left internal carotid artery near its origin. There is reconstitution of the cavernous carotid artery. The middle cerebral artery is patent with origins of the posterior c erebral arteries bilaterally. Percent stenosis is calculated using the diameter of the stenotic region over the diameter of the no rmal distal internal carotid artery. CONCLUSION: Chronic occlusion of the left internal carotid artery. Previous right endarterectomy without evidence of recurrent stenosis. Electronically signed by: Malachi Mckeon MD 05/11/2018 4:26 PM EST
[2018-05-11 16:34] LABS: Platelet Estimate Normal (Normal); Platelet Morphology Normal (Normal)
--- NOTE | 2018-05-11 16:35 | XR ---
EXAM DATE: 05/11/2018 4:24 PM EST AGE/SEX: 83 years / Male INDICATIONS: Stroke alert. CLINICAL DATA: This is the patient's initial encounter. Patient reports that signs and symptoms have been present for 1 day and indicates a pain score of Nonresponsive. MEDICAL/SURGICAL HISTORY: Non-responsive. Non-responsive. COMPARISON: No prior exams available for comparison. FINDINGS: Mild elevation of the right hemidiaphragm with mild medial right lower lung zone airspace disease. Th e cardiomediastinal contours are unremarkable. Osseous structures are intact. CONCLUSION: 1. Probable medial right lower lung zone atelectasis. Electronically signed by: Fortunato Shaw MD 05/11/2018 4:34 PM EST
[2018-05-11] MEDS ORDERED: Aspirin 325 MG Tablet PO ONE (16:41)
--- NOTE | 2018-05-11 16:55 | MB ---
cc: Malachi Serrato MD DATE: 05/11/2018 NEUROLOGY CONSULTATION HISTORY OF PRESENT ILLNESS: An 83-year-old man who was admitted on 04/18/2018 with right-sided weakness for 2 days, difficulty talking about 3 weeks before that; weakness of the right leg, difficulty getting his words out. He was on Valsartan, hydrochlorothiazide, Aleve and tamsulosin. He was put on aspirin and Plavix. He was found to be mildly weak in the right arm and leg about 4+/5. He had a mild expressive aphasia. He had an MRI of the brain which showed multiple small acute left infarcts, including the left occipital lobe, deep white matter changes. MRA of the head: Occlusion of the left internal carotid artery was absent flow distally, probable focal stenosis of the distal left MCA. 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 He was stabilized and improved. He was able to talk well. No neuro deficits. According to Dr. Dang's last note, he had a carotid endarterectomy on the right and postop did well and today he came in because the shelter thought that his speech was worse and thus admitted as a stroke alert. REVIEW OF SYSTEMS: Really unable to obtain from him. PAST MEDICAL HISTORY: The recent stroke about 3 weeks ago. SOCIAL HISTORY: He is not a smoker or drinker. Currently living in [facility]. HOME MEDICATIONS: He is on: 1. Valsartan. 2. Hydrochlorothiazide. 3. Tamsulosin. 4. Plavix. 5. Atorvastatin. 6. 81 of aspirin. ALLERGIES: NO KNOWN DRUG ALLERGIES. PAST MEDICAL HISTORY: BPH, hypertension. PHYSICAL EXAMINATION: GENERAL: He is in sinus rhythm here; 130/80. NECK: There were no carotid bruits. HEART: Regular rhythm. I did not detect a murmur. The right CEA site is healing well. No bruit over that. NEUROLOGIC: The pupils are equal. 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 Face has a slight right facial droop. He does have an expressive and receptive aphasia, I would say moderate, at this time. Pinprick appeared to be intact all 4 extremities and face. He has normal strength in upper and lower extremities bilaterally. Toes downgoing bilaterally. DTRs are trace to absent throughout. Pinprick appeared to be intact, as noted. NIH stroke scale was a 7. IMAGING: CT of the brain shows some subacute infarcts on the left. CTA of the neck and [place] [employer] and left carotid is occluded in the neck, right feels fine. The right carotid endarterectomy site looks fine and is a good flow in both MCAs. IMPRESSION: Certainly possibly another stroke versus a seizure. We will check an MRI of the brain; continue on the aspirin and Plavix for now. If that is negative, we might consider a loop recorder and anticoagulation. ____ report the posterior cerebral arteries also appear to be intact and come off mainly the anterior circulation, but a little bit on the posterior. He has got a fairly good [place] [employer] currently. The patient was not given tPA because he had the recent stroke. MD LUISANA Alfonso/boby , 04:01 PM , 04:09 PM
--- NOTE | 2018-05-11 18:34 | MR ---
EXAM DATE: 05/11/2018 6:16 PM EST AGE/SEX: 83 years / Male INDICATIONS: CVA. Right sided weakness CLINICAL DATA: This is the patient's subsequent encounter. Patient reports that signs and symptoms h ave been present for 2 days and indicates a pain score of 0/10. MEDICAL/SURGICAL HISTORY: Stroke. HTN, Prostate, Stroke (3 wks ago) . Right Meninscus, Carotid (right side) COMPARISON: [facility], MR HEAD W/O CONTRAST, 04/17/2018. [facility], CT HEAD W/O CONTRAST, 05/11/2018. . TECHNIQUE: Multiplanar, multisequence examination of the brain was performed without and with 8.5 ml Gadavist (gadobutrol) contrast as a single exam dose. FINDINGS: There is restricted diffusion in the periventricular and deep white matter of the left frontal, parie isaiah and occipital lobes consistent with new, acute/subacute infarcts. The entire region of involvemen t is approximately 2.2 x 8.4 cm in greatest transaxial dimension. These findings are superimposed on chronic white matter ischemic changes in the same region that were acute at the time of the compariso n MRI. No bleed. No mass, mass effect or midline shift demonstrated. There is no abnormal enhancement. CONCLUSION: Acute superimposed on subacute/chronic white matter infarcts of the left frontal, parietal and tempor al lobes as described. Electronically signed by: Rick Helms MD 05/11/2018 6:33 PM EST
--- NOTE | 2018-05-11 19:16 | P.HPFP ---
History of Present Illness Primary Care Physician: UNKNOWN <Facundo Thomas - 05/12/18 14:32> UNKNOWN <Luis Antonio Ann - 05/11/18 19:16> Chief Complaint: weakness <MarissaDotshubham Gaitan - 05/11/18 19:16> History of Present Illness: He is an 83-year-old male with a history of recent stroke who presented today after onset of right-sided weakness, dysarthria, word finding difficulties, and increased confusion. History today is given with his who reportedly has dementia and his son who is the healthcare surrogate present. He is currently at rehab after suffering a stroke 3 weeks ago. At that time he had right-sided deficits and mild dysarthria. Today he has acute onset at about 10 AM of right-sided weakness that has improved slightly since time of onset. He was unable to lift his arm or leg against gravity this morning. His son notes that he has been more confused and had more difficulty speaking since Wednesday, however he did not have weakness at that time. His son says that he does not currently seem confused to him, however it is odd that he does not know the year. When asked, the patient is not sure why he was brought to the hospital today. From chart review it seems as if he has had multiple different neurologic symptoms with multiple different time courses over the past month. Per his family he has had difficulty with constipation recently and has been taking MiraLAX daily at home. He denies fever, chills, recent sickness, headaches, nausea, vomiting, chest pain, palpitations, shortness of breath, abdominal pain, dysuria. Full and accurate review of systems is unobtainable secondary to mental status. Past medical history Hypertension: Treated with valsartan/hydrochlorothiazide CVA: 04/17/18 Surgical History Carotid endarterectomy on 04/20/18 Arthroscopic surgery of the right knee Social: [id number] smoking history, quit 40 years ago. No alcohol use. Currently residing at a rehab facility, however previously lived with his , son, and grandchildren. <Luis Antonio Ann - 05/12/18 00:56> - Diagnosis (1) Acute CVA (cerebrovascular accident) (2) Confusion (3) Hypertension (4) Internal carotid artery stenosis (5) Dysarthria <Facundo Thomas 05/12/18 14:32> (1) Acute CVA (cerebrovascular accident) (2) Confusion (3) Hypertension (4) Internal carotid artery stenosis (5) Dysarthria <Luis Antonio Ann 05/12/18 01:36> Inpatient Certification: I certify that the inpatient services were ordered in accordance with Medicare regulations governing the order. This includes certification that hospital inpatient services are reasonable and necessary and in the case of services not specified as inpatient-only under 42 CFR 419.22(n), that they are appropriately provided as inpatient services in accordance to with the 2-midnight benchmark under 43 CFR 412.3(e) <Facundo Thomas - 05/12/18 14:32> I certify that the inpatient services were ordered in accordance with Medicare regulations governing the order. This includes certification that hospital inpatient services are reasonable and necessary and in the case of services not specified as inpatient-only under 42 CFR 419.22(n), that they are appropriately provided as inpatient services in accordance to with the 2-midnight benchmark under 43 CFR 412.3(e) <Luis Antonio Ann 05/11/18 20:07> Estimated Total Length of Stay (Days): 3 <Luis Antonio Ann 05/11/18 19: 16> Plans for Post Hospital Care: Not yet determined <Luis Antonio Ann 05/11 19:16> Review of Systems unobtainable due to mental status <Luis Antonio Ann 05/12/18 00:56> REPLACED BY [facility] - History History Provided By: Medical Record, [employer] / EMT <Luis Antonio Ann 05/11/18 19:16> - Medical History Medical History: Medical History (Last Updated 05/11/18 @ 16:04 by Delmar Berry) Cerebral infarct Constipation Muscle weakness (generalized) 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 HTN (hypertension) <Facundo Thomas - 05/12/18 14:32> Medical History (Last Updated 05/11/18 @ 16:04 by Delmar Berry) Cerebral infarct Constipation Muscle weakness (generalized) 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 HTN (hypertension) <Luis Antonio Ann - 05/11/18 19:16> - Surgical History Surgical History: Surgical History (Last Updated 05/11/18 @ 16:04 by Delmar Berry) H/O carotid endarterectomy H/O arthroscopic knee surgery <Facundo Thomas - 05/12/18 14:32> Surgical History (Last Updated 05/11/18 @ 16:04 by Delmar Berry) H/O carotid endarterectomy H/O arthroscopic knee surgery <Luis Antonio Ann - 05/11/18 19:16> - Tobacco History Second Hand Smoke Exposure: No <Luis Antonio Ann 05/11/18 19:16> Smoking Status: Former smoker <Luis Antonio Ann 05/11/18 19:16> - Alcohol History How Often Do You Have a Drink Containing Alcohol: Never <Luis Antonio Ann 05/11/18 19:16> - Substance Use History Substance History: No History of Abuse <Luis Antonio Ann 05/11/18 19:16> - Travel History Recent Travel in the [facility] Within the Last 8 Weeks: No <Luis Antonio Ann 05/11/18 19:16> Recent Travel Out of the Country Within the Last 8 Weeks: No <Luis Antonio Ann 05/11/18 19:16> - Immunization History Tetanus Immunization: Unsure <Luis Antonio Ann 05/11/18 19:16> Medications and Allergies Allergies Allergy/AdvReac Type Severity Reaction Status Date / Time No Known Allergies Allergy Verified 04/17/18 12:44 <Facundo Thomas - 05/12/18 14:32> Home Medications Medication Instructions Recorded Confirmed Type tamsulosin 0.4 mg PO DAILY 04/17/18 05/11/18 History valsartan-hydrochlorothiazide 1 tab PO DAILY 04/17/18 05/11/18 History <Facundo Thomas - 05/12/18 14:32> Active Medications: Active Medications Aspirin (Aspirin Chew) 81 mg PO DAILY [facility] Last Admin: 05/12/18 10:10 Dose: Not Given Atorvastatin Calcium (Lipitor) 80 mg PO DAILY [facility] Last Admin: 05/12/18 10:10 Dose: Not Given Dextrose (D50w Vial) 50 ml IV.PUSH UNSCH PRN PRN Reason: PER HYPOGLYCEMIA PROTOCOL Glucagon (Glucagon Inj) 1 mg OTHER UNSCH PRN PRN Reason: for Hypoglycemia Protocol Sodium Chloride (Ns Inj) 1,000 mls @ 100 mls/hr IV.CONT .Q10H [facility] Last Admin: 05/12/18 10:50 Dose: 165 mls/hr Heparin Sodium/Dextrose (Heparin/D5w 25,000 U/250 Ml) 25,000 unit in 250 mls @ 0 mls/hr IV.CONT TITRATE PRN; Protocol PRN Reason: Per Protocol Last Titration: 05/12/18 02:00 Dose: 0 units/hr, 0 mls/hr Phenylephrine HCl 160 mg/ (Sodium Chloride) 500 mls @ 7.5 mls/hr IV.CONT TITRATE PRN; Protocol PRN Reason: See protol Last Admin: 05/12/18 03:52 Dose: 40 mcg/min, 7.5 mls/hr Magnesium Sulfate 4 gm/ Sodium (Chloride) 100 mls @ 50 mls/hr IV.SIG UNSCH PRN PRN Reason: For Magnesium 0.9 - 1.1 mg/dL Magnesium Sulfate 2 gm/ Sodium (Chloride) 100 mls @ 50 mls/hr IV.SIG UNSCH PRN PRN Reason: For Magnesium 1.2 - 1.6 mg/dL Potassium Chloride (Kcl 40 Meq Premix Inj) 40 meq in 100 mls @ 25 mls/hr IV.SIG Q2H PRN PRN Reason: For Potassium 2.8 - 3.2 mEq/L Potassium Chloride (Kcl 20 Meq Premix Inj) 20 meq in 100 mls @ 50 mls/hr IV.SIG Q2H PRN PRN Reason: For Potassium 3.3 - 3.5 mEq/L Potassium Chloride (Kcl 40 Meq Premix Inj) 40 meq in 100 mls @ 25 mls/hr IV.SIG UNSCH PRN PRN Reason: For Potassium 3.3 - 3.5 mEq/L Potassium Chloride (Kcl 20 Meq Premix Inj) 20 meq in 100 mls @ 50 mls/hr IV.SIG Q2H PRN PRN Reason: For Potassium 2.8 - 3.2 mEq/L Potassium Phosphate 30 mmol/ (Sodium Chloride) 260 mls @ 42 mls/hr IV.SIG UNSCH PRN PRN Reason: SEE LABEL COMMENTS Sodium Phosphate 30 mmol/ (Sodium Chloride) 260 mls @ 42 mls/hr IV.SIG UNSCH PRN PRN Reason: For Phosphorus < 2.5 mg/dL Insulin Aspart (Novolog Insulin Correctional Sugar Inj) 0 unit SQ Q6HR [facility]; Protocol Last Admin: 05/12/18 11:58 Dose: Not Given Magnesium Oxide (Mag-Ox) 800 mg PO UNSCH PRN PRN Reason: For Magnesium 1.2 - 1.6 mg/dL Potassium Bicarb/Potassium Chloride (K-Lyte Cl Eff) 50 meq PO UNSCH PRN PRN Reason: For Potassium 3.3 - 3.5 mEq/L Potassium Phosphate (K-Phos Original) 2,000 mg PO Q4H PRN PRN Reason: Phosphorus Less Than 2.5 mg/dL Potassium Phosphate (K-Phos Original) 2,000 mg PO UNSCH PRN PRN Reason: SEE LABEL COMMENTS Sodium Chloride (Ns Flush) 2 ml IV.FLUSH BID [facility] Last Admin: 05/12/18 09:50 Dose: 2 ml Sodium Chloride (Ns Flush) 2 ml IV.FLUSH PRN PRN PRN Reason: FLUSH AFTER USING IV ACCESS Sodium Chloride (Ns Flush) 0 ml IV.FLUSH DAILY [facility] Last Admin: 05/12/18 09:50 Dose: 10 ml Tamsulosin HCl (Flomax) 0.4 mg PO DAILY [facility] Last Admin: 05/12/18 14:12 Dose: 0.4 mg Terbutaline Sulfate (Brethine Inj) 1 mg SQ UNSCH PRN PRN Reason: For Extravasation <Facundo Thomas - 05/12/18 14:32> Active Medications Aspirin (Aspirin Chew) 81 mg PO DAILY [facility] Atorvastatin Calcium (Lipitor) 80 mg PO DAILY [facility] Clopidogrel Bisulfate (Plavix) 75 mg PO DAILY [facility] Sodium Chloride (Ns Inj) 1,000 mls @ 70 mls/hr IV.CONT .[id number] [facility] Last Admin: 05/11/18 17:21 Dose: 70 mls/hr Non-Formulary Medication (Valsartan-Hydrochlorothiazide [Valsartan- Hydrochlorothiazide]) 1 tab PO DAILY [facility] Tamsulosin HCl (Flomax) 0.4 mg PO DAILY [facility] <Luis Antonio Ann J - 05/11/18 19:16> Exam Vital signs: Vital Signs 05/11/18 15:56 05/11/18 16:00 05/11/18 16:14 Temperature Pulse Rate 97 H 103 H 98 H Respiratory Rate 18 18 Blood Pressure 138/60 130/56 L Pulse Oximetry 91 L 94 L 05/11/18 16:16 05/11/18 16:18 05/11/18 17:00 Temperature Pulse Rate 103 H Respiratory Rate 20 Blood Pressure 146/105 H Pulse Oximetry 91 L 91 L 98 05/11/18 19:24 05/11/18 20:00 05/12/18 00:00 Temperature 97.6 F Pulse Rate 100 H 95 H 96 H Respiratory Rate 18 18 14 Blood Pressure 93/50 L 103/57 L 106/63 Pulse Oximetry 96 97 05/12/18 00:01 05/12/18 00:02 05/12/18 00:23 Temperature 98.3 F Pulse Rate 122 H 109 H Respiratory Rate 23 Blood Pressure 152/77 H 137/70 Pulse Oximetry 98 05/12/18 00:40 05/12/18 01:00 05/12/18 01:09 Temperature Pulse Rate 105 H 97 H 95 H Respiratory Rate 29 H 16 15 Blood Pressure 114/55 L 103/59 L Pulse Oximetry 98 97 95 05/12/18 01:15 05/12/18 01:30 05/12/18 01:45 Temperature Pulse Rate 96 H 92 H 98 H Respiratory Rate 15 14 18 Blood Pressure 106/63 101/65 95/65 L Pulse Oximetry 96 96 97 05/12/18 02:00 05/12/18 02:15 05/12/18 02:30 Temperature Pulse Rate 96 H 98 H 98 H Respiratory Rate 16 17 Blood Pressure 125/58 L 117/58 L 111/64 Pulse Oximetry 96 97 97 05/12/18 02:45 05/12/18 03:00 05/12/18 03:15 Temperature Pulse Rate 98 H 101 H 99 H Respiratory Rate 26 H 23 Blood Pressure 116/64 128/63 134/73 Pulse Oximetry 97 97 98 05/12/18 03:30 05/12/18 03:45 05/12/18 03:59 Temperature Pulse Rate 97 H 99 H 98 H Respiratory Rate 16 17 17 Blood Pressure 129/78 109/65 Pulse Oximetry 96 96 97 05/12/18 04:00 05/12/18 04:15 05/12/18 04:30 Temperature 98.4 F Pulse Rate 87 92 H 97 H Respiratory Rate 17 17 40 H Blood Pressure 122/77 119/71 127/72 Pulse Oximetry 98 96 98 05/12/18 04:45 05/12/18 05:00 05/12/18 05:15 Temperature Pulse Rate 91 H 87 86 Respiratory Rate 33 H 25 H 14 Blood Pressure 122/75 135/76 144/73 H Pulse Oximetry 97 98 98 05/12/18 05:30 05/12/18 05:45 05/12/18 06:00 Temperature Pulse Rate 87 107 H 89 Respiratory Rate 17 39 H 28 H Blood Pressure 156/69 H 138/88 137/89 Pulse Oximetry 99 98 98 05/12/18 06:15 05/12/18 06:30 05/12/18 06:45 Temperature Pulse Rate 97 H 97 H 94 H Respiratory Rate 36 H 34 H 38 H Blood Pressure 164/82 H 159/77 H 149/79 H Pulse Oximetry 98 98 98 05/12/18 07:00 05/12/18 07:15 05/12/18 07:30 Temperature Pulse Rate 94 H 96 H 97 H Respiratory Rate 27 H 37 H 35 H Blood Pressure 147/77 H 142/75 H 183/83 H Pulse Oximetry 97 98 97 05/12/18 07:31 05/12/18 07:45 05/12/18 07:50 Temperature Pulse Rate 104 H 108 H 99 H Respiratory Rate 40 H 37 H 30 H Blood Pressure 158/73 H 184/97 H 144/74 H Pulse Oximetry 98 98 98 05/12/18 08:00 05/12/18 08:08 05/12/18 08:15 Temperature Pulse Rate 90 98 H Respiratory Rate 27 H 29 H Blood Pressure 142/64 H 142/77 H Pulse Oximetry 96 100 97 05/12/18 08:30 05/12/18 08:45 05/12/18 09:00 Temperature Pulse Rate 94 H 98 H 96 H Respiratory Rate 16 21 16 Blood Pressure 151/72 H 149/72 H 150/80 H Pulse Oximetry 97 98 97 05/12/18 09:15 05/12/18 09:30 05/12/18 09:45 Temperature Pulse Rate 96 H 93 H 99 H Respiratory Rate 26 H 24 36 H Blood Pressure 138/76 132/75 167/74 H Pulse Oximetry 97 97 99 05/12/18 10:00 05/12/18 10:15 05/12/18 10:30 Temperature Pulse Rate 93 H 97 H 102 H Respiratory Rate 24 36 H 36 H Blood Pressure 142/64 H 153/72 H 167/81 H Pulse Oximetry 97 98 99 05/12/18 10:45 05/12/18 11:00 05/12/18 11:15 Temperature Pulse Rate 106 H 122 H Respiratory Rate 42 H 53 H 49 H Blood Pressure 169/91 H 162/74 H 153/75 H Pulse Oximetry 98 99 99 05/12/18 11:22 05/12/18 11:30 05/12/18 11:45 Temperature Pulse Rate 90 97 H 93 H Respiratory Rate 42 H 33 H Blood Pressure 142/64 H 139/69 123/75 Pulse Oximetry 97 96 05/12/18 12:00 Temperature Pulse Rate 98 H Respiratory Rate 29 H Blood Pressure 155/68 H Pulse Oximetry 96 Intake & Output 05/11/18 05/12/18 05/12/18 18:59 06:59 18:59 Intake Total 1780 / 1780 1000 / 1000 Output Total 675 / 675 Balance 1105 / 1105 1000 / 1000 Weight 84.2 kg 85.2 kg Intake: IV 1780 / 1780 1000 / 1000 NS Inj 1,000 ML @ 100 mls/hr IV 1280 / 1280 1000 / 1000 .CONT .Q10H [facility] Rx#:[id number] NS Inj 500 ML @ 1000 mls/hr IV. 500 / 500 SIG BOLUS [facility] Rx#:[id number] Oral 0 / 0 Output: Urine 675 / 675 Other: # Voids 3 Date of Last Bowel Movement 05/11/18 <Facundo Thomas - 05/12/18 14:32> Vital Signs 05/11/18 15:56 05/11/18 16:00 05/11/18 16:14 Pulse Rate 97 H 103 H 98 H Respiratory Rate 18 18 Blood Pressure 138/60 130/56 L Pulse Oximetry 91 L 94 L 05/11/18 16:16 05/11/18 16:18 05/11/18 17:00 Pulse Rate 103 H Respiratory Rate 20 Blood Pressure 146/105 H Pulse Oximetry 91 L 91 L 98 Intake & Output 12/05/18 12/05/18 12/06/18 06:59 18:59 06:59 Weight 84.2 kg <Luis Antonio Ann - 05/11/18 19:16> Narrative: General: Well-developed, alert, and in no acute distress. Appears stated age. He is oriented to person and place. He states that the years 2016 and he does not know the month. He does not know why he is here. HEENT: Atraumatic, moist mucous membranes Neck: Supple, non-tender without masses or lymphadenopathy, trachea midline Cardiac: Tachycardic with regular rhythm without murmur Pulmonary: Non-labored breathing. Lungs clear to auscultation bilaterally with good air movement Abdomen: Normal bowel sounds, soft and non-tender without rebound or guarding Extremities: No edema, 2+ pedal pulses, capillary refill less than 2 seconds Neurologic: He has significant slurring of his speech. He does appear to have word finding difficulties. He follows some commands, but has difficulty with others. Pronator drift in the right side. Upgoing Babinski on the right side. 5 out of 5 strength in the left upper and lower extremities. 4 out of 5 strength in the right upper and lower extremities. Mild decrease in facial strength on the right. He may have some right-sided visual field loss, however he also has questionable right-sided neglect and difficulty following commands. EOMI. mild right facial weakness. SCM equal strength b/l. Other cranial nerves unable to assess due to confusion. <Luis Antonio Ann - 05/11/18 23:21> Results - Labs Result diagrams: 05/12/18 00:15 05/12/18 06:22 <Facundo Thomas - 05/12/18 14:32> Abnormal lab results 05/11/18 05/11/18 05/11/18 Range/Units 15:11 15:11 15:11 WBC 15.4 H (4.0-11.0) th/mm3 RBC 3.35 L (4.50-5.90) mil/mm3 Hgb 10.1 L (13.0-17.0) gm/dL POC Hgb (Calc) 10.2 L (13.0-17.0) g/dL Hct 28.8 L (39.0-51.0) % POC Hct 30.0 L (39-51.0) % MCHC (32.0-36.0) % Neut % (Auto) 77.6 H (16.0-70.0) % Lymph % (Auto) (9.0-44.0) % Rhea % (Auto) 8.1 H (0.0-8.0) % Neut # (Auto) 12.0 H (1.8-7.7) th/mm3 Rhea # (Auto) 1.3 H (0.0-0.9) th/mm3 Seg Neuts % (Manual) (16-70) % Myelocytes % (Man) (0-0) % Abs Neuts (Manual) (1.8-7.7) th/mm3 Helmet Cells (None) APTT (23.4-31.7) sec Fibrinogen 412 H (227-377) mg/dL POC Sodium 129 L (137-144) mmol/L Sodium (136-145) meq/L POC Chloride 92 L (102-111) mmol/L POC Glucose 115 H (68-110) mg/dL Random Glucose (74-106) mg/dL Calcium (8.5-10.1) mg/dL Troponin I Less than 0.02 L (0.02-0.05) ng/mL Total Protein (6.4-8.2) g/dL Albumin (3.4-5.0) g/dL Ur Specific Davilla (1.002-1.035) Urine Ketones (Negative) mg/dL Urine Mucus (Occasional) /lpf 05/11/18 05/11/18 05/11/18 Range/Units 19:30 20:56 21:04 WBC (4.0-11.0) th/mm3 RBC (4.50-5.90) mil/mm3 Hgb (13.0-17.0) gm/dL POC Hgb (Calc) (13.0-17.0) g/dL Hct (39.0-51.0) % POC Hct (39-51.0) % MCHC (32.0-36.0) % Neut % (Auto) (16.0-70.0) % Lymph % (Auto) (9.0-44.0) % Rhea % (Auto) (0.0-8.0) % Neut # (Auto) (1.8-7.7) th/mm3 Rhea # (Auto) (0.0-0.9) th/mm3 Seg Neuts % (Manual) (16-70) % Myelocytes % (Man) (0-0) % Abs Neuts (Manual) (1.8-7.7) th/mm3 Helmet Cells (None) APTT (23.4-31.7) sec Fibrinogen (227-377) mg/dL POC Sodium (137-144) mmol/L Sodium (136-145) meq/L POC Chloride (102-111) mmol/L POC Glucose 59 L 120 H (68-110) mg/dL Random Glucose (74-106) mg/dL Calcium (8.5-10.1) mg/dL Troponin I (0.02-0.05) ng/mL Total Protein (6.4-8.2) g/dL Albumin (3.4-5.0) g/dL Ur Specific [place] 1.055 H (1.002-1.035) Urine Ketones Trace H (Negative) mg/dL Urine Mucus Few H (Occasional) /lpf 05/11/18 05/12/18 05/12/18 Range/Units 21:50 00:15 00:15 WBC 12.6 H (4.0-11.0) th/mm3 RBC 3.04 L (4.50-5.90) mil/mm3 Hgb 9.5 L (13.0-17.0) gm/dL POC Hgb (Calc) (13.0-17.0) g/dL Hct 26.1 L (39.0-51.0) % POC Hct (39-51.0) % MCHC 36.6 H (32.0-36.0) % Neut % (Auto) 81.9 H (16.0-70.0) % Lymph % (Auto) 8.7 L (9.0-44.0) % Rhea % (Auto) (0.0-8.0) % Neut # (Auto) 10.3 H (1.8-7.7) th/mm3 Rhea # (Auto) 1.0 H (0.0-0.9) th/mm3 Seg Neuts % (Manual) 81 H (16-70) % Myelocytes % (Man) 1 H (0-0) % Abs Neuts (Manual) 10.5 H (1.8-7.7) th/mm3 Helmet Cells Occ H (None) APTT 57.6 H D (23.4-31.7) sec Fibrinogen 380 H (227-377) mg/dL POC Sodium (137-144) mmol/L Sodium (136-145) meq/L POC Chloride (102-111) mmol/L POC Glucose 125 H (68-110) mg/dL Random Glucose (74-106) mg/dL Calcium (8.5-10.1) mg/dL Troponin I (0.02-0.05) ng/mL Total Protein (6.4-8.2) g/dL Albumin (3.4-5.0) g/dL Ur Specific [place] (1.002-1.035) Urine Ketones (Negative) mg/dL Urine Mucus (Occasional) /lpf 05/12/18 05/12/18 05/12/18 Range/Units 00:15 06:22 09:08 WBC (4.0-11.0) th/mm3 RBC (4.50-5.90) mil/mm3 Hgb (13.0-17.0) gm/dL POC Hgb (Calc) (13.0-17.0) g/dL Hct (39.0-51.0) % POC Hct (39-51.0) % MCHC (32.0-36.0) % Neut % (Auto) (16.0-70.0) % Lymph % (Auto) (9.0-44.0) % Rhea % (Auto) (0.0-8.0) % Neut # (Auto) (1.8-7.7) th/mm3 Rhea # (Auto) (0.0-0.9) th/mm3 Seg Neuts % (Manual) (16-70) % Myelocytes % (Man) (0-0) % Abs Neuts (Manual) (1.8-7.7) th/mm3 Helmet Cells (None) APTT (23.4-31.7) sec Fibrinogen (227-377) mg/dL POC Sodium (137-144) mmol/L Sodium 133 L 133 L (136-145) meq/L POC Chloride (102-111) mmol/L POC Glucose 152 H (68-110) mg/dL Random Glucose 116 H (74-106) mg/dL Calcium 7.5 L 8.1 L (8.5-10.1) mg/dL Troponin I Less than 0.02 L (0.02-0.05) ng/mL Total Protein 6.2 L (6.4-8.2) g/dL Albumin 3.2 L (3.4-5.0) g/dL Ur Specific [place] (1.002-1.035) Urine Ketones (Negative) mg/dL Urine Mucus (Occasional) /lpf 05/12/18 05/12/18 Range/Units 10:41 11:33 WBC (4.0-11.0) th/mm3 RBC (4.50-5.90) mil/mm3 Hgb (13.0-17.0) gm/dL POC Hgb (Calc) (13.0-17.0) g/dL Hct (39.0-51.0) % POC Hct (39-51.0) % MCHC (32.0-36.0) % Neut % (Auto) (16.0-70.0) % Lymph % (Auto) (9.0-44.0) % Rhea % (Auto) (0.0-8.0) % Neut # (Auto) (1.8-7.7) th/mm3 Rhea # (Auto) (0.0-0.9) th/mm3 Seg Neuts % (Manual) (16-70) % Myelocytes % (Man) (0-0) % Abs Neuts (Manual) (1.8-7.7) th/mm3 Helmet Cells (None) APTT 63.1 H D (23.4-31.7) sec Fibrinogen (227-377) mg/dL POC Sodium (137-144) mmol/L Sodium (136-145) meq/L POC Chloride (102-111) mmol/L POC Glucose 147 H (68-110) mg/dL Random Glucose (74-106) mg/dL Calcium (8.5-10.1) mg/dL Troponin I (0.02-0.05) ng/mL Total Protein (6.4-8.2) g/dL Albumin (3.4-5.0) g/dL Ur Specific [place] (1.002-1.035) Urine Ketones (Negative) mg/dL Urine Mucus (Occasional) /lpf Short CBC 05/11/18 05/12/18 Range/Units 15:11 00:15 WBC 15.4 H 12.6 H (4.0-11.0) th/mm3 Hgb 10.1 L 9.5 L (13.0-17.0) gm/dL Hct 28.8 L 26.1 L (39.0-51.0) % Plt Count 287 238 (150-450) th/mm3 BMP 05/12/18 05/12/18 00:15 06:22 Sodium 133 L 133 L Potassium 3.7 3.9 Chloride 100 102 Carbon Dioxide 25.2 23.3 BUN 17 16 Creatinine 0.68 0.69 Calcium 7.5 L 8.1 L Cardiac Enzymes 05/11/18 05/12/18 05/12/18 Range/Units 15:11 00:15 06:22 Total Creatine Kinase 88 90 92 (39-308) U/L Troponin I Less than 0.02 L Less than 0.02 L (0.02-0.05) ng/mL Liver Function 05/12/18 Range/Units 00:15 Total Bilirubin 0.4 (0.2-1.0) mg/dL AST 18 (15-37) U/L ALT 28 (12-78) U/L Alkaline Phosphatase 66 (45-117) U/L Albumin 3.2 L (3.4-5.0) g/dL Urine 05/11/18 Range/Units 19:30 Urine Color Straw (Yellw/Straw) Urine Clarity Clear (Clear) Urine pH 6.0 (5.0-8.5) Ur Specific [place] 1.055 H (1.002-1.035) Urine Protein Negative (Neg-Trace) mg/dL Urine Glucose (UA) Negative (Negative) mg/dL <Facundo Thomas - 05/12/18 14:32> Abnormal lab results 05/11/18 05/11/18 05/11/18 Range/Units 15:11 15:11 15:11 WBC 15.4 H (4.0-11.0) th/mm3 RBC 3.35 L (4.50-5.90) mil/mm3 Hgb 10.1 L (13.0-17.0) gm/dL POC Hgb (Calc) 10.2 L (13.0-17.0) g/dL Hct 28.8 L (39.0-51.0) % POC Hct 30.0 L (39-51.0) % Neut % (Auto) 77.6 H (16.0-70.0) % Rhea % (Auto) 8.1 H (0.0-8.0) % Neut # (Auto) 12.0 H (1.8-7.7) th/mm3 Rhea # (Auto) 1.3 H (0.0-0.9) th/mm3 Fibrinogen 412 H (227-377) mg/dL POC Sodium 129 L (137-144) mmol/L POC Chloride 92 L (102-111) mmol/L POC Glucose 115 H (68-110) mg/dL Troponin I Less than 0.02 L (0.02-0.05) ng/mL Short CBC 05/11/18 Range/Units 15:11 WBC 15.4 H (4.0-11.0) th/mm3 Hgb 10.1 L (13.0-17.0) gm/dL Hct 28.8 L (39.0-51.0) % Plt Count 287 (150-450) th/mm3 Cardiac Enzymes 05/11/18 Range/Units 15:11 Total Creatine Kinase 88 (39-308) U/L Troponin I Less than 0.02 L (0.02-0.05) ng/mL <Luis Antonio Ann - 05/11/18 19:16> - Imaging Impressions Chest X-Ray 05/11/18 15:17 CONCLUSION: 1. Probable medial right lower lung zone atelectasis. Head CT 05/11/18 15:17 CONCLUSION: 1. No acute intracranial abnormality is identified. 2. Stable chronic findings include mild generalized atrophy and asymmetric periventricular white matter low-attenuation. These findings were relayed in person by the research technologist to Dr. Muñoz on 05/11/2018 at approximately 3:39 PM. Head CTA 05/11/18 15:17 CONCLUSION: 1. Left internal carotid occlusion, similar to what was seen on 04/17/2018. . Neck CTA 05/11/18 15:17 CONCLUSION: Chronic occlusion of the left internal carotid artery. Previous right endarterectomy without evidence of recurrent stenosis. 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 Head CT 05/12/18 00:16 CONCLUSION: 1. Chronic small vessel ischemic change. No acute intracranial abnormality. Report was called by [Dr. Solorzano to Dr. Serrato and to Dr. Tilley at 0033 hours. There is a delay in interpretation of this study due to an issue with the [employer] system. ] Chest X-Ray 05/12/18 02:51 CONCLUSION: Central line without pneumothorax. <Facundo Thomas - 05/12/18 14:32> Impressions Chest X-Ray 05/11/18 15:17 CONCLUSION: 1. Probable medial right lower lung zone atelectasis. Head CT 05/11/18 15:17 CONCLUSION: 1. No acute intracranial abnormality is identified. 2. Stable chronic findings include mild generalized atrophy and asymmetric periventricular white matter low-attenuation. These findings were relayed in person by the research technologist to Dr. Muñoz on 05/11/2018 at approximately 3:39 PM. Head CTA 05/11/18 15:17 CONCLUSION: 1. Left internal carotid occlusion, similar to what was seen on 04/17/2018. . Neck CTA 05/11/18 15:17 CONCLUSION: Chronic occlusion of the left internal carotid artery. Previous right endarterectomy without evidence of recurrent stenosis. 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 <Luis Antonio Ann - 05/11/18 19:16> Caprini VTE Risk Assessment Caprini VTE Risk Assessment: Moderate/High Risk (score >= 2) <Luis Antonio Ann - 05/12/18 01:39> Caprini Risk Assessment Model: Point Value = 1 Point Value = 2 Point Value = 3 Point Value = 5 Age 41-60 Minor surgery BMI > 25 kg/m2 Swollen legs Varicose veins or History of unexplained or recurrent spontaneous Oral contraceptives or hormone replacement Sepsis (< 1 month) Serious lung disease, including pneumonia (< 1 month) Abnormal pulmonary function Acute myocardial infarction Congestive heart failure (< 1 month) History of inflammatory bowel disease Medical patient at bed rest Age 61-74 Arthroscopic surgery Major open surgery (> 45 min) Laparoscopic surgery (> 45 min) Malignancy Confined to bed (> 72 hours) Immobilizing plaster cast Central venous access Age >= 75 History of VTE Family history of VTE Factor V Leiden Prothrombin [id number] Lupus anticoagulant Anticardiolipin antibodies Elevated serum homocysteine Heparin-induced thrombocytopenia Other congenital or acquired thrombophilia Stroke (< 1 month) Elective arthroplasty Hip, pelvis, or leg fracture Acute spinal cord injury (< 1 month) <Facundo Thomas - 05/12/18 14:32> Point Value = 1 Point Value = 2 Point Value = 3 Point Value = 5 Age 41-60 Minor surgery BMI > 25 kg/m2 Swollen legs Varicose veins or History of unexplained or recurrent spontaneous Oral contraceptives or hormone replacement Sepsis (< 1 month) Serious lung disease, including pneumonia (< 1 month) Abnormal pulmonary function Acute myocardial infarction Congestive heart failure (< 1 month) History of inflammatory bowel disease Medical patient at bed rest Age 61-74 Arthroscopic surgery Major open surgery (> 45 min) Laparoscopic surgery (> 45 min) Malignancy Confined to bed (> 72 hours) Immobilizing plaster cast Central venous access Age >= 75 History of VTE Family history of VTE Factor V Leiden Prothrombin [id number] Lupus anticoagulant Anticardiolipin antibodies Elevated serum homocysteine Heparin-induced thrombocytopenia Other congenital or acquired thrombophilia Stroke (< 1 month) Elective arthroplasty Hip, pelvis, or leg fracture Acute spinal cord injury (< 1 month) <Luis Antonio Ann - 05/11/18 19:16> Prophylaxis Regimen: Total Risk Factor Score Risk Level Prophylaxis Regimen 0-1 Low Early ambulation 2 Moderate Order ONE of the following: *Sequential Compression Device (SCD) *Heparin 5000 units SQ BID 3-4 Higher Order ONE of the following medications: *Heparin 5000 units SQ TID *Enoxaparin/Lovenox 40 mg SQ daily (WT < 150 kg, CrCl > 30 mL/min) *Enoxaparin/Lovenox 30 mg SQ daily (WT < 150 kg, CrCl > 10-29 mL/min) *Enoxaparin/Lovenox 30 mg SQ BID (WT < 150 kg, CrCl > 30 mL/min) AND/OR *Sequential Compression Device (SCD) 5 or more Highest Order ONE of the following medications: *Heparin 5000 units SQ TID (Preferred with Epidurals) *Enoxaparin/Lovenox 40 mg SQ daily (WT < 150 kg, CrCl > 30 mL/min) *Enoxaparin/Lovenox 30 mg SQ daily (WT < 150 kg, CrCl > 10-29 mL/min) *Enoxaparin/Lovenox 30 mg SQ BID (WT < 150 kg, CrCl > 30 mL/min) AND *Sequential Compression Device (SCD) <Facundo Thomas - 05/12/18 14:32> Total Risk Factor Score Risk Level Prophylaxis Regimen 0-1 Low Early ambulation 2 Moderate Order ONE of the following: *Sequential Compression Device (SCD) *Heparin 5000 units SQ BID 3-4 Higher Order ONE of the following medications: *Heparin 5000 units SQ TID *Enoxaparin/Lovenox 40 mg SQ daily (WT < 150 kg, CrCl > 30 mL/min) *Enoxaparin/Lovenox 30 mg SQ daily (WT < 150 kg, CrCl > 10-29 mL/min) *Enoxaparin/Lovenox 30 mg SQ BID (WT < 150 kg, CrCl > 30 mL/min) AND/OR *Sequential Compression Device (SCD) 5 or more Highest Order ONE of the following medications: *Heparin 5000 units SQ TID (Preferred with Epidurals) *Enoxaparin/Lovenox 40 mg SQ daily (WT < 150 kg, CrCl > 30 mL/min) *Enoxaparin/Lovenox 30 mg SQ daily (WT < 150 kg, CrCl > 10-29 mL/min) *Enoxaparin/Lovenox 30 mg SQ BID (WT < 150 kg, CrCl > 30 mL/min) AND *Sequential Compression Device (SCD) <Luis Antonio Ann - 05/11/18 19:16> Assessment and Plan - Assessment (1) Acute CVA (cerebrovascular accident) Code(s): I63.9 - Cerebral infarction, unspecified Status: Acute (2) Confusion Code(s): R41.0 - Disorientation, unspecified Status: Acute (3) Hypertension Code(s): I10 - Essential (primary) hypertension Status: Acute (4) Internal carotid artery stenosis Code(s): I65.29 - Occlusion and stenosis of unspecified carotid artery Status : Acute (5) Dysarthria Code(s): R47.1 - Dysarthria and anarthria Status: Acute <ThomasFacundo - 05/12/18 14:32> (1) Acute CVA (cerebrovascular accident) Code(s): I63.9 - Cerebral infarction, unspecified Status: Acute (2) Confusion Code(s): R41.0 - Disorientation, unspecified Status: Acute (3) Hypertension Code(s): I10 - Essential (primary) hypertension Status: Acute (4) Internal carotid artery stenosis Code(s): I65.29 - Occlusion and stenosis of unspecified carotid artery Status : Acute (5) Dysarthria Code(s): R47.1 - Dysarthria and anarthria Status: Acute <Luis Antonio Ann - 05/12/18 01:36> - Assessment and Plan He is an 83-year-old male who presented with right-sided weakness onset today at about 10 AM. His symptoms at this time include right-sided weakness, dysarthria, expressive and receptive aphasia, and potentially increased confusion. He is oriented to person and place, but not time. He had a recent stroke about 3 weeks ago and was in rehab. His mental status over the past few weeks is unclear. His son states that he is currently not much different than baseline, however he is unable to say why he is in the hospital and unable to state the year. Acute stroke: -Consult to neurology, appreciate recommendations. He has already been seen by Dr. Serrato. 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 at bedtime -HbA1c ordered -Physical therapy, please evaluate and treat -Speech therapy: Evaluation for dysphasia and swallowing Chronic hypertension: -Hold home antihypertensives Labetalol for SBP greater than 220 or DBP greater than 120 Confusion: This may be entirely from his CVA, however other causes may contribute especially considering the time course of his symptoms. -Urinalysis to assess for UTI -Repeat electrolytes (hyponatremia on [id number] testing) Fluids: Normal saline at 100 cc/h Electrolytes: monitor and replete as needed Nutrition: NPO until cleared by speech therapy GI prophylaxis: not indicated VTE prophylaxis: Subcutaneous Lovenox CODE STATUS: His son states that he is the health care surrogate and he is a full code. He is to confused to make this decision at this time. We have asked his son to bring in the paperwork tomorrow. <Luis Antonio Ann - 05/12/18 01:39> - Attending Attestation See the residents documentation for details. I saw and evaluated the patient regarding the jenkins portions of this evaluation and agree with the residents findings and plans as written. Parts of this note were created using [employer] voice recognition software program. While efforts were made to correct any mistakes made by this software, some mistakes, errors, and omissions may remain in the final note that were not caught when the note was originally created. Plan of care was discussed and agreed upon with the patient as specifically documented in the above note. An opportunity to ask questions with explanation was provided. Patient voiced understanding on all information reviewed and discussed. <Facundo Thomas - 05/12/18 14:32>
[2018-05-11] MEDS ORDERED: Dextrose 50% in Water 50 ML Vial IV.PUSH PRN (19:25)
[2018-05-11 20:12] LABS: Bilirubin,Urine Negative (Negative); Clarity,Urine Clear (Clear); Color,Urine Straw (Yellw/Straw); Glucose,Urine (UA) Negative (Negative); Leukocyte Esterase,Urine Negative (Negative); Mucus,Urine Few /lpf (Occasional); Nitrite,Urine Negative (Negative); Specific Gravity,Urine 1.055 (1.002-1.035)
[2018-05-11] MEDS ORDERED: Dextrose 5%/NaCl 0.9% Inj 1,000 ML IV.CONT SCH (20:15)
[2018-05-11 20:17] LABS: Amphetamine Screen,Urine Neg (Neg); Barbiturate Screen,Urine Neg (Neg); Cannabinoid Screen,Urine Neg (Neg); Cocaine Screen,Urine Neg (Neg)
[2018-05-11 20:19] LABS: Opiate Screen,Urine Neg (Neg)
[2018-05-11] MEDS ORDERED: Insulin NovoLOG Aspart Correctional Sugar Inj SQ SCH (21:00)
[2018-05-12] MEDS ORDERED: Sodium Chlor 0.9% Inj 500 ML IV.SIG SCH (00:11)
--- NOTE | 2018-05-12 00:35 | CT ---
EXAM DATE: 05/12/2018 12:26 AM EST AGE/SEX: 83 years / Male INDICATIONS: Stroke alert, aphasia. CLINICAL DATA: This is the patient's initial encounter. Patient reports that signs and symptoms have been present for 1 day and indicates a pain score of 0/10. MEDICAL/SURGICAL HISTORY: Hypertension. Cerebrovascular disease. None. RADIATION DOSE: 56.35 CTDI (mGy) COMPARISON: [facility] [place]/O CONTRAST, 05/11/2018. CT of the head 05/11/2018 at 1523 hours. TECHNIQUE: CT of the head without contrast. Using automated exposure control and adjustment of the mA and/or kV according to patient size, radiation dose was kept as low as reasonably achievable to ob tain optimal diagnostic quality images. DICOM format image data is available electronically for revi ew and comparison. FINDINGS: Cerebrum: Periventricular low attenuation change involving both cerebral hemispheres. This is slight ly asymmetric and more pronounced involving the left cerebral hemisphere. The ventricles are normal f or age. No evidence of midline shift, mass lesion, hemorrhage or acute infarction. No extraaxial fl uid collections are seen. Posterior Fossa: The cerebellum and brainstem are intact. The 4th ventricle is midline. The cerebe llopontine angle is unremarkable. Extracranial: The visualized portion of the orbits is intact. Skull: The calvaria is intact. No evidence of skull fracture. CONCLUSION: 1. Chronic small vessel ischemic change. No acute intracranial abnormality. Report was called by [Dr. Solorzano to Dr. Serrato and to Dr. Tilley at 0033 hours. There is a delay in interpretation of this study due to an issue with the [employer] system. ] Electronically signed by: Georgi Solorzano MD 05/12/2018 12:34 AM EST
[2018-05-12] MEDS: Heparin Drip 25,000 UNIT/250 ML BAG IV.CONT PRN ×2 (00:40→21:54)
[2018-05-12] MEDS: Sod Chloride 0.9% Inj 1,000 ML IV.CONT SCH ×6 (00:40→22:05)
--- NOTE | 2018-05-12 00:43 | P.PNADD ---
Addendum to Inpatient Note Reason for Addendum: Additional Documentation Additional information: At 2326 I was paged regarding Mr. Barber because he had increasing weakness in the right side and increasing difficulty following commands. We arrived at the bedside and stroke alert was called. He was last seen normal by the nurse at 2145. Vitals: BP 108/68 Exam - General: Confused, severe dysarthria to the point of unintelligibility Neurologic: Unable to follow commands which makes neurologic exam difficult. 5 /5 strength in the left upper and lower extremities. 34/5 strength in the right upper and lower extremities. He intermittently responds to some commands of the right side of the body. Right sided facial droop and asymmetric smile. NIH stroke scale of 16. Assessment: Acute increase in confusion and dysarthria. Questionable change in his strength. Stroke alert was called and stat non-contrast CT of the brain was obtained. Plan: -Transfer to the ICU -CT of the head discussed with radiologist. No acute hemorrhage. -500cc bolus of NS and fluids at 1.5x maintenance -Heparin at 12 units/kg/hr -Head of the bed flat for 12 hours -Continuous telemetry -Neurochecks per protocol Stat CMP, coags, fibrinogen, CBC with differential, CK, troponin -BP goal of greater than 160/80 and less than 220/120 Neurology (Dr. Serrato) was contacted and case was discussed. For continued blood pressure below our goals we will consult the dry chain puller for pressor support
[2018-05-12 01:34] LABS: Baso # (Auto) 0.1 th/mm3 (0.0-0.2); Baso % (Auto) 0.6 % (0.0-2.0); Eos # (Auto) 0.1 th/mm3 (0.0-0.4); Hematocrit 26.1 % (39.0-51.0); Hemoglobin 9.5 gm/dL (13.0-17.0); Lymph # (Auto) 1.1 th/mm3 (1.0-4.8); Lymph % (Auto) 8.7 % (9.0-44.0); Mean Corpuscular Hemoglobin 31.4 pg (27.0-34.0); Mean Corpuscular Volume 85.8 fL (80.0-100.0); Mean Platelet Volume 7.3 fL (7.0-11.0); Mono % (Auto) 7.8 % (0.0-8.0); Neut # (Auto) 10.3 th/mm3 (1.8-7.7); Neut % (Auto) 81.9 % (16.0-70.0); Platelet Count 238 th/mm3 (150-450); Red Blood Count 3.04 mil/mm3 (4.50-5.90); Red Cell Distribution Width 14.3 % (11.6-17.2); White Blood Count 12.6 th/mm3 (4.0-11.0)
[2018-05-12 01:36] LABS: Mean Corpuscular HGB Conc 36.6 % (32.0-36.0)
[2018-05-12 01:43] LABS: Activated Partial Thrombo Time 57.6 sec (23.4-31.7); INR 1.1 Ratio
--- NOTE | 2018-05-12 01:47 | P.PNADD ---
Addendum to Inpatient Note Reason for Addendum: Additional Documentation Additional information: S: Patient reevaluated at 0145 with continued hypotension. Nursing staff and at the bedside report no acute changes but continued right-sided weakness with dysarthria. O: GENERAL: Elderly gentleman lying in bed with head of bed flat and at bedside in no acute distress. SKIN: Cool and dry. No rash. EYES: No scleral icterus. No injection or drainage. HENT: Normocephalic. Atraumatic. MMM. NECK: No visible JVD or lymphadenopathy. CARDIOVASCULAR: Warm and well perfused. RESPIRATORY: Normal respiratory effort. GASTROINTESTINAL: Abdomen nondistended. NEUROLOGICAL: Overall neurologic exam unchanged from previous exams. Speech-dysarthria with dysphagia. Poor focus and comprehension Cranial nerves-unable to be thoroughly examined as patient is unable to follow commands at this time. Motor/sensory/reflexes- Tnce-hgnoc-lclfe facial droop with asymmetric smile. RUE- 3/5 strength in all musc groups, sensation intact. LUE- 5/5 strength in all musc groups, sensation intact. RLE- 5/5 strength in all musc groups, sensation intact. LLE- 5/5 strength in all musc groups, sensation intact. A/P: Mr. Barber is a 83-year-old male with recent CEA presenting with acute stroke. Patient given normal saline 500 mL bolus with increase of fluids to 1.5 maintenance Patient has not responded and blood pressure continues to decrease to 94/59 on exam Neurologic exam stable from previous exam during stroke alert Due to continued hypotension and need for increased blood pressures for brain perfusion, critical care consulted for possible blood pressure assistance Discussed with Dr. Yost Discussed with nursing staff and family
[2018-05-12 02:04] LABS: Alanine Aminotransferase 28 U/L (12-78); Albumin 3.2 g/dL (3.4-5.0); Anion Gap 8 meq/L (5-15); Aspartate Aminotransferase 18 U/L (15-37); Blood Urea Nitrogen 17 mg/dL (7-18); Calcium 7.5 mg/dL (8.5-10.1); Carbon Dioxide 25.2 meq/L (21.0-32.0); Chloride 100 meq/L (98-107); Glomerular Filtration Rate Greater Than 89 mL/min (>89); Glucose,Random 116 mg/dL (74-106); Lymphocytes 9 % (9-44); Monocytes 7 % (0-8); Myelocytes 1 % (0-0); Potassium 3.7 meq/L (3.5-5.1); Sodium 133 meq/L (136-145)
[2018-05-12] MEDS ORDERED: Potassium Phosphate 500 MG Soluble Tablet PO PRN ×2 (02:04)
[2018-05-12] MEDS ORDERED: Potassium Chlor 20 mEq Premix 20 MEQ/100 ML PIGGYBACK IV.SIG PRN ×2 (02:04)
[2018-05-12] MEDS ORDERED: Potassium Chlor 40 mEq Premix 40 MEQ/100 ML PIGGYBACK IV.SIG PRN ×2 (02:04)
[2018-05-12] MEDS ORDERED: Potassium Phosphate Inj 30 MMOL in Sodium Chlor 0.9% Inj 250 ML IV.SIG PRN (02:04)
[2018-05-12] MEDS ORDERED: Potassium Chloride 25 MEQ Effervescent Tablet PO PRN (02:04)
[2018-05-12] MEDS ORDERED: Sodium Phosphate Inj 30 MMOL in Sodium Chlor 0.9% Inj 250 ML IV.SIG PRN (02:04)
[2018-05-12] MEDS ORDERED: Magnesium Oxide 400 MG Tablet PO PRN (02:04)
[2018-05-12] MEDS ORDERED: Magnesium Sulfate Inj 2 GM in Sodium Chlor 0.9% Inj 96 ML IV.SIG PRN (02:04)
[2018-05-12] MEDS ORDERED: Magnesium Sulfate Inj 4 GM in Sodium Chlor 0.9% Inj 92 ML IV.SIG PRN (02:04)
[2018-05-12 02:05] LABS: Helmet Cells Occ; Platelet Estimate Normal (Normal); Platelet Morphology Normal (Normal)
[2018-05-12 02:15] LABS: Alkaline Phosphatase 66 U/L (45-117); Creatine Kinase 90 U/L (39-308); Total Protein 6.2 g/dL (6.4-8.2)
--- NOTE | 2018-05-12 02:52 | P.PCN ---
Date of procedure: 05/12/18 Pre-op diagnosis: Hypotension/CVA Post-op diagnosis: same Procedure: DATE: 05/12/2018 CENTRAL LINE PLACEMENT: Left internal jugular vein. Ultrasound-guided INDICATION: Central venous access CONSENT Informed consent for procedure was obtained from son/healthcare proxy. DESCRIPTION OF THE PROCEDURE The patient was placed in supine position. The skin was cleansed with Chloraprep. Additional barrier precautions included large sterile drape, sterile gloves, sterile gown, face mask, and hat. 1 % lidocaine was used for local anesthesia. Under direct ultrasound guidance and on third attempt, the vein was accessed with an introducer needle. The guide wire was advanced and the tract was dilated. Using Seldinger technique a 7 [place] 20 cm antimicrobial coated triple-lumen catheter was advanced to a depth of 20 centimeters. The guide wire was removed. All ports had good return of dark venous blood and flushed easily with saline. The central line was secured with 2.0 silk. A sterile dressing with antibiotic disc was applied. StatLock did not adhere to skin. ESTIMATED BLOOD LOSS: Minimal COMPLICATIONS: No apparent complications. STAT chest x-ray pending at time of dictation
--- NOTE | 2018-05-12 02:53 | P.CONCC ---
History of Present Illness Service: Critical care medicine Consult date: 05/12/18 Requesting Physician: Delmar Tilley Reason for Consult: Critical care medicine management, hypertension Primary Care Provider: UNKNOWN Chief Complaint: weakness History of Present Illness: This is a 83-year-old male. Admission 05/11/2018 repeat of consultation 05/12/2018. 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 Patient had a right carotid intervention by Dr. Oakes 04/24/2018. Today, patient presented to [facility] with onset of right-sided weakness, dysarthria, word finding difficulties, and increased confusion. Today he has acute onset at about 10 AM of right-sided weakness that has improved slightly since time of onset. He was unable to lift his arm or leg against gravity this morning. According to the medical record, his son stated that he has been more confused and had more difficulty speaking since Wednesday, however he did not have weakness at that time. CT of the brain 05/11 revealed no acute changes. Patent right carotid endarterectomy. Occluded left carotid internal carotid artery. Patient was evaluated by the family medicine team due to worsening confusion and dysarthria and right sided deficits/weakness. A stat MRI of the brain was performed which revealed restricted diffusion in the periventricular and deep white matter of the left frontal, parietal and occipital lobes consistent with new, acute/subacute infarcts. The entire region of involvement is approximately 2.2 x 8.4 cm in greatest transaxial dimension. These findings are superimposed on chronic white matter ischemic changes in the same region that were acute at the time of the comparison MRI. Neurology was notified. They recommended vasopressors to raise the mean arterial pressure to increase cerebral perfusion. We got involved with a central line and start the patient on phenylephrine drip. His home medications of losartan currently being held. On hydrochlorothiazide. 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 HTN (hypertension) - Surgical History Surgical History: Surgical History (Last Updated 05/11/18 @ 16:04 by Delmar Berry) H/O carotid endarterectomy H/O arthroscopic knee surgery - Family History Family History: Family History (Last Updated 05/12/18 @ 02:58 by Corbin Yost MD) Other Family history non-contributory - Social History I have reviewed the patient's Social History: Yes - Tobacco History Second Hand Smoke Exposure: No Tobacco Use In Past 30 Days: No Smoking Status: Former smoker - Alcohol History How Often Do You Have a Drink Containing Alcohol: Never - Substance Use History Substance History: No History of Abuse - Travel History Recent Travel in the [place] Within the Last 8 Weeks: No Recent Travel Out of the Country Within the Last 8 Weeks: No - Immunization History Tetanus Immunization: Unsure Medications and Allergies Active Medications: Active Medications Aspirin (Aspirin Chew) 81 mg PO DAILY DIONISIO Atorvastatin Calcium (Lipitor) 80 mg PO DAILY DIONISIO Clopidogrel Bisulfate (Plavix) 75 mg PO DAILY DIONISIO Dextrose (D50w Vial) 50 ml IV.PUSH UNSCH PRN PRN Reason: PER HYPOGLYCEMIA PROTOCOL Glucagon (Glucagon Inj) 1 mg OTHER UNSCH PRN PRN Reason: for Hypoglycemia Protocol Sodium Chloride (Ns Inj) 1,000 mls @ 100 mls/hr IV.CONT .Q10H DIONISIO Last Admin: 05/12/18 00:40 Dose: 185 mls/hr Heparin Sodium/Dextrose (Heparin/D5w 25,000 U/250 Ml) 25,000 unit in 250 mls @ 0 mls/hr IV.CONT TITRATE PRN; Protocol PRN Reason: Per Protocol Last Admin: 05/12/18 00:40 Dose: 12 units/hr, 0.12 mls/hr Phenylephrine HCl 160 mg/ (Sodium Chloride) 500 mls @ 7.5 mls/hr IV.CONT TITRATE PRN; Protocol PRN Reason: See protol Magnesium Sulfate 4 gm/ Sodium (Chloride) 100 mls @ 50 mls/hr IV.SIG UNSCH PRN PRN Reason: For Magnesium 0.9 - 1.1 mg/dL Magnesium Sulfate 2 gm/ Sodium (Chloride) 100 mls @ 50 mls/hr IV.SIG UNSCH PRN PRN Reason: For Magnesium 1.2 - 1.6 mg/dL Potassium Chloride (Kcl 40 Meq Premix Inj) 40 meq in 100 mls @ 25 mls/hr IV.SIG Q2H PRN PRN Reason: For Potassium 2.8 - 3.2 mEq/L Potassium Chloride (Kcl 20 Meq Premix Inj) 20 meq in 100 mls @ 50 mls/hr IV.SIG Q2H PRN PRN Reason: For Potassium 3.3 - 3.5 mEq/L Potassium Chloride (Kcl 40 Meq Premix Inj) 40 meq in 100 mls @ 25 mls/hr IV.SIG UNSCH PRN PRN Reason: For Potassium 3.3 - 3.5 mEq/L Potassium Chloride (Kcl 20 Meq Premix Inj) 20 meq in 100 mls @ 50 mls/hr IV.SIG Q2H PRN PRN Reason: For Potassium 2.8 - 3.2 mEq/L Potassium Phosphate 30 mmol/ (Sodium Chloride) 260 mls @ 42 mls/hr IV.SIG UNSCH PRN PRN Reason: SEE LABEL COMMENTS Sodium Phosphate 30 mmol/ (Sodium Chloride) 260 mls @ 42 mls/hr IV.SIG UNSCH PRN PRN Reason: For Phosphorus < 2.5 mg/dL Insulin Aspart (Novolog Insulin Correctional Sugar Inj) 0 unit SQ Q6HR DIONISIO; Protocol Magnesium Oxide (Mag-Ox) 800 mg PO UNSCH PRN PRN Reason: For Magnesium 1.2 - 1.6 mg/dL Potassium Bicarb/Potassium Chloride (K-Lyte Cl Eff) 50 meq PO UNSCH PRN PRN Reason: For Potassium 3.3 - 3.5 mEq/L Potassium Phosphate (K-Phos Original) 2,000 mg PO Q4H PRN PRN Reason: Phosphorus Less Than 2.5 mg/dL Potassium Phosphate (K-Phos Original) 2,000 mg PO UNSCH PRN PRN Reason: SEE LABEL COMMENTS Sodium Chloride (Ns Flush) 2 ml IV.FLUSH BID [facility] Last Admin: 05/11/18 21:50 Dose: 2 ml Sodium Chloride (Ns Flush) 2 ml IV.FLUSH PRN PRN PRN Reason: FLUSH AFTER USING IV ACCESS Sodium Chloride (Ns Flush) 0 ml IV.FLUSH DAILY [facility] Tamsulosin HCl (Flomax) 0.4 mg PO DAILY DIONISIO Terbutaline Sulfate (Brethine Inj) 1 mg SQ UNSCH PRN PRN Reason: For Extravasation Allergies Allergy/AdvReac Type Severity Reaction Status Date / Time No Known Allergies Allergy Verified 04/17/18 12:44 Home Medications Medication Instructions Recorded Confirmed Type tamsulosin 0.4 mg PO DAILY 04/17/18 05/11/18 History valsartan-hydrochlorothiazide 1 tab PO DAILY 04/17/18 05/11/18 History Physical Exam Vital signs: Vital Signs 05/11/18 15:56 05/11/18 16:00 05/11/18 16:14 Temperature Pulse Rate 97 H 103 H 98 H Respiratory Rate 18 18 Blood Pressure 138/60 130/56 L Pulse Oximetry 91 L 94 L 05/11/18 16:16 05/11/18 16:18 05/11/18 17:00 Temperature Pulse Rate 103 H Respiratory Rate 20 Blood Pressure 146/105 H Pulse Oximetry 91 L 91 L 98 05/11/18 19:24 05/11/18 20:00 05/12/18 00:00 Temperature 97.6 F Pulse Rate 100 H 95 H 101 H Respiratory Rate 18 18 14 Blood Pressure 93/50 L 103/57 L Pulse Oximetry 96 97 05/12/18 00:01 05/12/18 00:02 05/12/18 00:23 Temperature 98.3 F Pulse Rate 122 H 109 H Respiratory Rate 23 Blood Pressure 152/77 H 137/70 Pulse Oximetry 98 05/12/18 00:40 05/12/18 01:00 05/12/18 01:09 Temperature Pulse Rate 105 H 97 H 95 H Respiratory Rate 29 H 16 15 Blood Pressure 114/55 L 103/59 L Pulse Oximetry 98 97 95 05/12/18 01:15 Temperature Pulse Rate 96 H Respiratory Rate 15 Blood Pressure 106/63 Pulse Oximetry 96 Intake & Output 05/11/18 05/11/18 05/12/18 06:59 18:59 06:59 Intake Total 780 / 780 Balance 780 / 780 Weight 84.2 kg Intake: IV 780 / 780 NS Inj 1,000 ML @ 70 mls/hr IV. 280 / 280 CONT .[id number] [facility] Rx#:[id number] NS Inj 500 ML @ 1000 mls/hr IV. 500 / 500 SIG BOLUS [facility] Rx#:[id number] - Constitutional no acute distress - Routine HEENT Exam Head: Present: normocephalic, atraumatic Eye: Present: EOMI, PERRL, normal accommodation ENT: Present: mucous membranes moist - Routine Neck Exam Present: supple, full ROM. Absent: JVD, carotid bruit - Routine Respiratory Exam Present: CTA bilaterally. Absent: accessory muscle use, rhonchi - Routine Cardiovascular Exam Present: RRR, S1, S2. Absent: murmur - Routine Abdominal Exam Present: soft, normoactive bowel sounds - Routine Exam Patient deferred: penile exam, testicular exam, scrotal exam, groin exam, perineal exam - Routine Skin Exam Present: intact, ecchymosis - Routine Neurological Exam Present: alert, CN II-XII intact, motor deficit, normal reflexes, pronator drift , hearing grossly intact. Absent: oriented X3, sensory deficit, nystagmus, normal speech - Detailed Neurological Exam: Coma Scale Eye Opening: Spontaneous Verbal Response: Confused Motor Response: Obey commands Alberto Coma Scale Total: 14 - Routine Psychiatric Exam Present: normal affect Septic Shock Reassessment Septic shock perfusion: reassessment completed Assessment and Plan - Assessment and Plan Plan: Neuro/Psych: Left frontal/parietal/occipital CVA MRI of brain 05/12 revealedrestricted diffusion in the periventricular and deep white matter of the left frontal, parietal and occipital lobes consistent with new, acute/subacute infarcts. The entire region of involvement is approximately 2.2 x 8.4 cm in greatest transaxial dimension. These findings are superimposed on chronic white matter ischemic changes in the same region that were acute at the time of the comparison MRI. Currently on aspirin 81 mg daily. Clopidogrel 75 mg daily, heparin gtt Evaluated by neurology. Recommended increased suprapubic pressure with vasopressors. CCD M CT of the brain revealed no acute findings. CTA revealed occluded left ICA. Collaterals from right side noted CV: Left internal carotid artery occlusion Status post right carotid enterectomy 04/[address] Oakes Essential hypertension Hyperlipidemia/elevated LDL Received 1 L normal saline bolus. Currently on phenylephrine drip to maintain systolic blood pressure greater than 140 for perfusion Holding home medications of valsartan and hydrochlorothiazide and attempt to increase cerebral perfusion pressures Was on losartan 100 mg daily and hydrochlorothiazide 12.5 mg daily Continue atorvastatin 80 mg daily for dyslipidemia Echocardiogram 04/24 revealed EF of 65-70%. PA P 30 mmHg Troponin 0 0.02. Resp: Prior history of tobacco abuse Nasal cannula to maintain saturations greater than equal to 92% Incentive spirometry while awake Follow-up chest x-ray post line placement As needed albuterol aerosols every 2 hours as needed dyspnea GI: Hypoalbuminemia N.p.o. status Pantoprazole for GI prophylaxis Docusate sodium/senna 1 tablet twice daily for bowel regimen : History of BPH Garcia catheter if indicated for accurate I's and O's in a critical patient Previously on tamsulosin 0.4 mg p.o. daily Endo: Sliding scale insulin Accu-Cheks every 6 hours maintain euglycemia/low regimen TSH was 1.44 Renal: Currently normal saline at 100 cc an hour Monitor urine output Accurate I's and O's Follow BMP this a.m. Heme: Leukocytosis Normocytic anemia Monitor CBC daily. Follow trends. No indication for transfusion of blood products at this time ID: Monitor for signs and symptomatology infection MSK: PT/OT evaluate and treat FEN: Hyponatremia Replace electrolytes as clinically indicated per ICU electrolyte protocol Currently on normal saline at 100 cc an hour. Access -Left IJ CVL day 1 placed 05/12 Prophylaxis -GI-pantoprazole -DVT SCD/heparin drip provides pharmacological prophylaxis Level 3 consult Code Status: Full code Discussed Condition With: Patient/. Care plan discussed and all questions answered. vice president of development per
--- NOTE | 2018-05-12 03:47 | XR ---
EXAM DATE: 05/12/2018 3:15 AM EST AGE/SEX: 83 years / Male INDICATIONS: Left internal jugular central line placement. CLINICAL DATA: This is the patient's subsequent encounter. Patient reports that signs and symptoms h ave been present for 2 days and indicates a pain score of 0/10. MEDICAL/SURGICAL HISTORY: Hypertension. Cerebrovascular disease. None. COMPARISON: [facility] – [place], CHEST 1V SINGLE AP, 05/11/2018. . FINDINGS: A single AP view of the chest demonstrates interval placement of a left-sided central line. Tip is at the cavoatrial junction. No pneumothorax. Focal area of atelectasis within the medial right base. Th is is unchanged.. Tiny right effusion questioned. Heart is normal in size. CONCLUSION: Central line without pneumothorax. Electronically signed by: Georgi Solorzano MD 05/12/2018 3:46 AM EST
[2018-05-12] MEDS: Phenylephrine Inj 160 MG in Sodium Chlor 0.9% Inj 484 ML IV.CONT PRN (03:52)
[2018-05-12] MEDS: Insulin NovoLOG Aspart Correctional Sugar Inj SQ SCH ×4 (05:51→23:39)
[2018-05-12 07:37] LABS: Anion Gap 8 meq/L (5-15); Blood Urea Nitrogen 16 mg/dL (7-18); Calcium 8.1 mg/dL (8.5-10.1); Carbon Dioxide 23.3 meq/L (21.0-32.0); Chloride 102 meq/L (98-107); Glomerular Filtration Rate Greater Than 89 mL/min (>89); Glucose,Random 106 mg/dL (74-106); Potassium 3.9 meq/L (3.5-5.1); Sodium 133 meq/L (136-145)
[2018-05-12 07:51] LABS: Creatine Kinase 92 U/L (39-308)
--- NOTE | 2018-05-12 07:58 | P.PNNEU ---
Subjective Subjective Comments: last noc got inc weak rue so hep started and estrella for inc bp and inc speech problem Active Medications: Active Medications Aspirin (Aspirin Chew) 81 mg PO DAILY DIONISIO Atorvastatin Calcium (Lipitor) 80 mg PO DAILY DIONISIO Clopidogrel Bisulfate (Plavix) 75 mg PO DAILY COUNT INCLUDES THE [facility] Dextrose (D50w Vial) 50 ml IV.PUSH UNSCH PRN PRN Reason: PER HYPOGLYCEMIA PROTOCOL Glucagon (Glucagon Inj) 1 mg OTHER UNSCH PRN PRN Reason: for Hypoglycemia Protocol Sodium Chloride (Ns Inj) 1,000 mls @ 100 mls/hr IV.CONT .Q10H DIONISIO Last Admin: 05/12/18 05:51 Dose: 165 mls/hr Heparin Sodium/Dextrose (Heparin/D5w 25,000 U/250 Ml) 25,000 unit in 250 mls @ 0 mls/hr IV.CONT TITRATE PRN; Protocol PRN Reason: Per Protocol Last Titration: 05/12/18 02:00 Dose: 0 units/hr, 0 mls/hr Phenylephrine HCl 160 mg/ (Sodium Chloride) 500 mls @ 7.5 mls/hr IV.CONT TITRATE PRN; Protocol PRN Reason: See protol Last Admin: 05/12/18 03:52 Dose: 40 mcg/min, 7.5 mls/hr Magnesium Sulfate 4 gm/ Sodium (Chloride) 100 mls @ 50 mls/hr IV.SIG UNSCH PRN PRN Reason: For Magnesium 0.9 - 1.1 mg/dL Magnesium Sulfate 2 gm/ Sodium (Chloride) 100 mls @ 50 mls/hr IV.SIG UNSCH PRN PRN Reason: For Magnesium 1.2 - 1.6 mg/dL Potassium Chloride (Kcl 40 Meq Premix Inj) 40 meq in 100 mls @ 25 mls/hr IV.SIG Q2H PRN PRN Reason: For Potassium 2.8 - 3.2 mEq/L Potassium Chloride (Kcl 20 Meq Premix Inj) 20 meq in 100 mls @ 50 mls/hr IV.SIG Q2H PRN PRN Reason: For Potassium 3.3 - 3.5 mEq/L Potassium Chloride (Kcl 40 Meq Premix Inj) 40 meq in 100 mls @ 25 mls/hr IV.SIG UNSCH PRN PRN Reason: For Potassium 3.3 - 3.5 mEq/L Potassium Chloride (Kcl 20 Meq Premix Inj) 20 meq in 100 mls @ 50 mls/hr IV.SIG Q2H PRN PRN Reason: For Potassium 2.8 - 3.2 mEq/L Potassium Phosphate 30 mmol/ (Sodium Chloride) 260 mls @ 42 mls/hr IV.SIG UNSCH PRN PRN Reason: SEE LABEL COMMENTS Sodium Phosphate 30 mmol/ (Sodium Chloride) 260 mls @ 42 mls/hr IV.SIG UNSCH PRN PRN Reason: For Phosphorus < 2.5 mg/dL Insulin Aspart (Novolog Insulin Correctional Sugar Inj) 0 unit SQ Q6HR COUNT INCLUDES THE [facility]; Protocol Last Admin: 05/12/18 05:51 Dose: Not Given Magnesium Oxide (Mag-Ox) 800 mg PO UNSCH PRN PRN Reason: For Magnesium 1.2 - 1.6 mg/dL Potassium Bicarb/Potassium Chloride (K-Lyte Cl Eff) 50 meq PO UNSCH PRN PRN Reason: For Potassium 3.3 - 3.5 mEq/L Potassium Phosphate (K-Phos Original) 2,000 mg PO Q4H PRN PRN Reason: Phosphorus Less Than 2.5 mg/dL Potassium Phosphate (K-Phos Original) 2,000 mg PO UNSCH PRN PRN Reason: SEE LABEL COMMENTS Sodium Chloride (Ns Flush) 2 ml IV.FLUSH BID COUNT INCLUDES THE [facility] Last Admin: 05/11/18 21:50 Dose: 2 ml Sodium Chloride (Ns Flush) 2 ml IV.FLUSH PRN PRN PRN Reason: FLUSH AFTER USING IV ACCESS Sodium Chloride (Ns Flush) 0 ml IV.FLUSH DAILY COUNT INCLUDES THE [facility] Tamsulosin HCl (Flomax) 0.4 mg PO DAILY COUNT INCLUDES THE [facility] Terbutaline Sulfate (Brethine Inj) 1 mg SQ UNSCH PRN PRN Reason: For Extravasation Allergies/Adverse Reactions: Allergies Allergy/AdvReac Type Severity Reaction Status Date / Time No Known Allergies Allergy Verified 04/17/18 12:44 Physical Exam Vital signs: Vital Signs 05/11/18 15:56 05/11/18 16:00 05/11/18 16:14 Temperature Pulse Rate 97 H 103 H 98 H Respiratory Rate 18 18 Blood Pressure 138/60 130/56 L Pulse Oximetry 91 L 94 L 05/11/18 16:16 05/11/18 16:18 05/11/18 17:00 Temperature Pulse Rate 103 H Respiratory Rate 20 Blood Pressure 146/105 H Pulse Oximetry 91 L 91 L 98 05/11/18 19:24 05/11/18 20:00 05/12/18 00:00 Temperature 97.6 F Pulse Rate 100 H 95 H 96 H Respiratory Rate 18 18 14 Blood Pressure 93/50 L 103/57 L 106/63 Pulse Oximetry 96 97 05/12/18 00:01 05/12/18 00:02 05/12/18 00:23 Temperature 98.3 F Pulse Rate 122 H 109 H Respiratory Rate 23 Blood Pressure 152/77 H 137/70 Pulse Oximetry 98 05/12/18 00:40 05/12/18 01:00 05/12/18 01:09 Temperature Pulse Rate 105 H 97 H 95 H Respiratory Rate 29 H 16 15 Blood Pressure 114/55 L 103/59 L Pulse Oximetry 98 97 95 05/12/18 01:15 05/12/18 01:30 05/12/18 01:45 Temperature Pulse Rate 96 H 92 H 98 H Respiratory Rate 15 14 18 Blood Pressure 106/63 101/65 95/65 L Pulse Oximetry 96 96 97 05/12/18 02:00 05/12/18 02:15 05/12/18 02:30 Temperature Pulse Rate 96 H 98 H 98 H Respiratory Rate 16 17 Blood Pressure 125/58 L 117/58 L 111/64 Pulse Oximetry 96 97 97 05/12/18 02:45 05/12/18 03:00 05/12/18 03:15 Temperature Pulse Rate 98 H 101 H 99 H Respiratory Rate 26 H 23 Blood Pressure 116/64 128/63 134/73 Pulse Oximetry 97 97 98 05/12/18 03:30 05/12/18 03:45 05/12/18 03:59 Temperature Pulse Rate 97 H 99 H 98 H Respiratory Rate 16 17 17 Blood Pressure 129/78 109/65 Pulse Oximetry 96 96 97 05/12/18 04:00 Temperature 98.4 F Pulse Rate Respiratory Rate Blood Pressure 122/77 Pulse Oximetry Intake & Output 05/11/18 05/12/18 05/12/18 18:59 06:59 18:59 Intake Total 1780 / 1780 Output Total 675 / 675 Balance 1105 / 1105 Weight 84.2 kg 85.2 kg Intake: IV 1780 / 1780 NS Inj 1,000 ML @ 100 mls/hr IV 1280 / 1280 .CONT .Q10H DIONISIO Rx#:[id number] NS Inj 500 ML @ 1000 mls/hr IV. 500 / 500 SIG BOLUS DIONISIO Rx#:[id number] Oral 0 / 0 Output: Urine 675 / 675 Other: # Voids 3 Narrative: aphasic moves all well face min r droop rue moving near nl as is rle nl Objective Laboratory Results - last 24 hr 05/11/18 05/11/18 05/11/18 15:11 15:11 15:11 WBC 15.4 H RBC 3.35 L Hgb 10.1 L POC Hgb (Calc) 10.2 L Hct 28.8 L POC Hct 30.0 L MCV 86.1 MCH 30.1 MCHC 35.0 RDW 14.0 Plt Count 287 MPV 7.5 Prelim Diff (Auto) Slide review pending Neut % (Auto) 77.6 H Lymph % (Auto) 13.0 [place] % (Auto) 8.1 H Eos % (Auto) 1.0 Baso % (Auto) 0.3 Neut # (Auto) 12.0 H Lymph # (Auto) 2.0 [place] # (Auto) 1.3 H Eos # (Auto) 0.1 Baso # (Auto) 0.1 WBC Differential . Diff Scan Auto diff confirmed Seg Neuts % (Manual) Band Neuts % (Manual) Lymphocytes % (Manual) Monocytes % (Manual) Basophils % (Manual) Myelocytes % (Man) Abs Neuts (Manual) Differential Comment . Platelet Estimate Normal Platelet Morphology Normal Helmet Cells PT 10.9 INR 1.1 APTT 27.9 Fibrinogen 412 H POC Sodium 129 L Sodium POC Potassium 4.1 Potassium POC Chloride 92 L Chloride Carbon Dioxide Anion Gap POC BUN 20 BUN Creatinine POC Creatinine 0.7 Estimated GFR POC Glucose 115 H Random Glucose Calcium Total Bilirubin AST ALT Alkaline Phosphatase Total Creatine Kinase 88 Troponin I Less than 0.02 L Total Protein Albumin Urine Color Urine Clarity Urine pH Ur Specific [place] Urine Protein Urine Glucose (UA) Urine Ketones Urine Occult Blood Urine Nitrate Urine Bilirubin Urine Urobilinogen Ur Leukocyte Esterase Urine WBC Urine Mucus Micro UA Comment Ur Microscopic Review Urine Culture Comments Nasal Screen MRSA (PCR) Urine Opiates Screen Ur Barbiturates Screen Ur Amphetamines Screen U Benzodiazepines Scrn Urine Cocaine Screen U Cannabinoids Screen Blood Type Antibody Screen 05/11/18 05/11/18 05/11/18 19:30 19:30 20:20 WBC RBC Hgb POC Hgb (Calc) Hct POC Hct MCV MCH MCHC RDW Plt Count MPV Prelim Diff (Auto) Neut % (Auto) Lymph % (Auto) [place] % (Auto) Eos % (Auto) Baso % (Auto) Neut # (Auto) Lymph # (Auto) [place] # (Auto) Eos # (Auto) Baso # (Auto) WBC Differential Diff Scan Seg Neuts % (Manual) Band Neuts % (Manual) Lymphocytes % (Manual) Monocytes % (Manual) Basophils % (Manual) Myelocytes % (Man) Abs Neuts (Manual) Differential Comment Platelet Estimate Platelet Morphology Helmet Cells PT INR APTT Fibrinogen POC Sodium Sodium POC Potassium Potassium POC Chloride Chloride Carbon Dioxide Anion Gap POC BUN BUN Creatinine POC Creatinine Estimated GFR POC Glucose Random Glucose Calcium Total Bilirubin AST ALT Alkaline Phosphatase Total Creatine Kinase Troponin I Total Protein Albumin Urine Color Straw Urine Clarity Clear Urine pH 6.0 Ur Specific [place] 1.055 H Urine Protein Negative Urine Glucose (UA) Negative Urine Ketones Trace H Urine Occult Blood Negative Urine Nitrate Negative Urine Bilirubin Negative Urine Urobilinogen Less than 2 Ur Leukocyte Esterase Negative Urine WBC Less than 1 Urine Mucus Few H Micro UA Comment Cath-culture not ind Ur Microscopic Review Not Reportable Urine Culture Comments Cath-cult not ind Nasal Screen MRSA (PCR) Urine Opiates Screen Neg Ur Barbiturates Screen Neg Ur Amphetamines Screen Neg U Benzodiazepines Scrn Neg Urine Cocaine Screen Neg U Cannabinoids Screen Neg Blood Type O Negative Antibody Screen Negative 05/11/18 05/11/18 05/11/18 20:56 21:04 21:50 WBC RBC Hgb POC Hgb (Calc) Hct POC Hct MCV MCH MCHC RDW Plt Count MPV Prelim Diff (Auto) Neut % (Auto) Lymph % (Auto) [place] % (Auto) Eos % (Auto) Baso % (Auto) Neut # (Auto) Lymph # (Auto) [place] # (Auto) Eos # (Auto) Baso # (Auto) WBC Differential Diff Scan Seg Neuts % (Manual) Band Neuts % (Manual) Lymphocytes % (Manual) Monocytes % (Manual) Basophils % (Manual) Myelocytes % (Man) Abs Neuts (Manual) Differential Comment Platelet Estimate Platelet Morphology Helmet Cells PT INR APTT Fibrinogen POC Sodium Sodium POC Potassium Potassium POC Chloride Chloride Carbon Dioxide Anion Gap POC BUN BUN Creatinine POC Creatinine Estimated GFR POC Glucose 59 L 120 H 125 H Random Glucose Calcium Total Bilirubin AST ALT Alkaline Phosphatase Total Creatine Kinase Troponin I Total Protein Albumin Urine Color Urine Clarity Urine pH Ur Specific [place] Urine Protein Urine Glucose (UA) Urine Ketones Urine Occult Blood Urine Nitrate Urine Bilirubin Urine Urobilinogen Ur Leukocyte Esterase Urine WBC Urine Mucus Micro UA Comment Ur Microscopic Review Urine Culture Comments Nasal Screen MRSA (PCR) Urine Opiates Screen Ur Barbiturates Screen Ur Amphetamines Screen U Benzodiazepines Scrn Urine Cocaine Screen U Cannabinoids Screen Blood Type Antibody Screen 05/12/18 05/12/18 05/12/18 00:15 00:15 00:15 WBC 12.6 H RBC 3.04 L Hgb 9.5 L POC Hgb (Calc) Hct 26.1 L POC Hct MCV 85.8 MCH 31.4 MCHC 36.6 H RDW 14.3 Plt Count 238 MPV 7.3 Prelim Diff (Auto) Slide review pending Neut % (Auto) 81.9 H Lymph % (Auto) 8.7 L [place] % (Auto) 7.8 Eos % (Auto) 1.0 Baso % (Auto) 0.6 Neut # (Auto) 10.3 H Lymph # (Auto) 1.1 [place] # (Auto) 1.0 H Eos # (Auto) 0.1 Baso # (Auto) 0.1 WBC Differential Manual diff final Diff Scan Seg Neuts % (Manual) 81 H Band Neuts % (Manual) 1 Lymphocytes % (Manual) 9 Monocytes % (Manual) 7 Basophils % (Manual) 1 Myelocytes % (Man) 1 H Abs Neuts (Manual) 10.5 H Differential Comment . Platelet Estimate Normal Platelet Morphology Normal Helmet Cells Occ H PT 11.0 INR 1.1 APTT 57.6 H D Fibrinogen 380 H POC Sodium Sodium 133 L POC Potassium Potassium 3.7 POC Chloride Chloride 100 Carbon Dioxide 25.2 Anion Gap 8 POC BUN BUN 17 Creatinine 0.68 POC Creatinine Estimated GFR Greater than 89 POC Glucose Random Glucose 116 H Calcium 7.5 L Total Bilirubin 0.4 AST 18 ALT 28 Alkaline Phosphatase 66 Total Creatine Kinase 90 Troponin I Less than 0.02 L Total Protein 6.2 L Albumin 3.2 L Urine Color Urine Clarity Urine pH Ur Specific [place] Urine Protein Urine Glucose (UA) Urine Ketones Urine Occult Blood Urine Nitrate Urine Bilirubin Urine Urobilinogen Ur Leukocyte Esterase Urine WBC Urine Mucus Micro UA Comment Ur Microscopic Review Urine Culture Comments Nasal Screen MRSA (PCR) Urine Opiates Screen Ur Barbiturates Screen Ur Amphetamines Screen U Benzodiazepines Scrn Urine Cocaine Screen U Cannabinoids Screen Blood Type Antibody Screen 05/12/18 05/12/18 05/12/18 00:36 06:22 06:22 WBC RBC Hgb POC Hgb (Calc) Hct POC Hct MCV MCH MCHC RDW Plt Count MPV Prelim Diff (Auto) Neut % (Auto) Lymph % (Auto) [place] % (Auto) Eos % (Auto) Baso % (Auto) Neut # (Auto) Lymph # (Auto) [place] # (Auto) Eos # (Auto) Baso # (Auto) WBC Differential Diff Scan Seg Neuts % (Manual) Band Neuts % (Manual) Lymphocytes % (Manual) Monocytes % (Manual) Basophils % (Manual) Myelocytes % (Man) Abs Neuts (Manual) Differential Comment Platelet Estimate Platelet Morphology Helmet Cells PT INR APTT 28.2 D Fibrinogen POC Sodium Sodium 133 L POC Potassium Potassium 3.9 POC Chloride Chloride 102 Carbon Dioxide 23.3 Anion Gap 8 POC BUN BUN 16 Creatinine 0.69 POC Creatinine Estimated GFR Greater than 89 POC Glucose Random Glucose 106 Calcium 8.1 L Total Bilirubin AST ALT Alkaline Phosphatase Total Creatine Kinase 92 Troponin I Total Protein Albumin Urine Color Urine Clarity Urine pH Ur Specific [place] Urine Protein Urine Glucose (UA) Urine Ketones Urine Occult Blood Urine Nitrate Urine Bilirubin Urine Urobilinogen Ur Leukocyte Esterase Urine WBC Urine Mucus Micro UA Comment Ur Microscopic Review Urine Culture Comments Nasal Screen MRSA (PCR) Not detected Urine Opiates Screen Ur Barbiturates Screen Ur Amphetamines Screen U Benzodiazepines Scrn Urine Cocaine Screen U Cannabinoids Screen Blood Type Antibody Screen Review/Management - Review/Management Plan: 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
--- NOTE | 2018-05-12 11:17 | P.PNFP ---
Subjective Interval history: Patient was seen lying in bed this morning. His son and were at bedside. Son says that he seems much better today compared to when he came in yesterday. He is more awake and his answers are sensible compared to "gibberish" yesterday. Patient also states that he feels better, He is able to move his right arm much better than the previous day. No nausea or vomiting, fever, or chills. <EkoChantel U - 05/12/18 11:38> Results - Labs Result diagrams: 05/12/18 00:15 05/12/18 06:22 <Facundo Thomas - 05/12/18 14:40> Abnormal lab results 05/11/18 05/11/18 05/11/18 Range/Units 15:11 15:11 15:11 WBC 15.4 H (4.0-11.0) th/mm3 RBC 3.35 L (4.50-5.90) mil/mm3 Hgb 10.1 L (13.0-17.0) gm/dL POC Hgb (Calc) 10.2 L (13.0-17.0) g/dL Hct 28.8 L (39.0-51.0) % POC Hct 30.0 L (39-51.0) % MCHC (32.0-36.0) % Neut % (Auto) 77.6 H (16.0-70.0) % Lymph % (Auto) (9.0-44.0) % [place] % (Auto) 8.1 H (0.0-8.0) % Neut # (Auto) 12.0 H (1.8-7.7) th/mm3 [place] # (Auto) 1.3 H (0.0-0.9) th/mm3 Seg Neuts % (Manual) (16-70) % Myelocytes % (Man) (0-0) % Abs Neuts (Manual) (1.8-7.7) th/mm3 Helmet Cells (None) APTT (23.4-31.7) sec Fibrinogen 412 H (227-377) mg/dL POC Sodium 129 L (137-144) mmol/L Sodium (136-145) meq/L POC Chloride 92 L (102-111) mmol/L POC Glucose 115 H (68-110) mg/dL Random Glucose (74-106) mg/dL Calcium (8.5-10.1) mg/dL Troponin I Less than 0.02 L (0.02-0.05) ng/mL Total Protein (6.4-8.2) g/dL Albumin (3.4-5.0) g/dL Ur Specific [place] (1.002-1.035) Urine Ketones (Negative) mg/dL Urine Mucus (Occasional) /lpf 05/11/18 05/11/18 05/11/18 Range/Units 19:30 20:56 21:04 WBC (4.0-11.0) th/mm3 RBC (4.50-5.90) mil/mm3 Hgb (13.0-17.0) gm/dL POC Hgb (Calc) (13.0-17.0) g/dL Hct (39.0-51.0) % POC Hct (39-51.0) % MCHC (32.0-36.0) % Neut % (Auto) (16.0-70.0) % Lymph % (Auto) (9.0-44.0) % [place] % (Auto) (0.0-8.0) % Neut # (Auto) (1.8-7.7) th/mm3 [place] # (Auto) (0.0-0.9) th/mm3 Seg Neuts % (Manual) (16-70) % Myelocytes % (Man) (0-0) % Abs Neuts (Manual) (1.8-7.7) th/mm3 Helmet Cells (None) APTT (23.4-31.7) sec Fibrinogen (227-377) mg/dL POC Sodium (137-144) mmol/L Sodium (136-145) meq/L POC Chloride (102-111) mmol/L POC Glucose 59 L 120 H (68-110) mg/dL Random Glucose (74-106) mg/dL Calcium (8.5-10.1) mg/dL Troponin I (0.02-0.05) ng/mL Total Protein (6.4-8.2) g/dL Albumin (3.4-5.0) g/dL Ur Specific [place] 1.055 H (1.002-1.035) Urine Ketones Trace H (Negative) mg/dL Urine Mucus Few H (Occasional) /lpf 05/11/18 05/12/18 05/12/18 Range/Units 21:50 00:15 00:15 WBC 12.6 H (4.0-11.0) th/mm3 RBC 3.04 L (4.50-5.90) mil/mm3 Hgb 9.5 L (13.0-17.0) gm/dL POC Hgb (Calc) (13.0-17.0) g/dL Hct 26.1 L (39.0-51.0) % POC Hct (39-51.0) % MCHC 36.6 H (32.0-36.0) % Neut % (Auto) 81.9 H (16.0-70.0) % Lymph % (Auto) 8.7 L (9.0-44.0) % [place] % (Auto) (0.0-8.0) % Neut # (Auto) 10.3 H (1.8-7.7) th/mm3 [place] # (Auto) 1.0 H (0.0-0.9) th/mm3 Seg Neuts % (Manual) 81 H (16-70) % Myelocytes % (Man) 1 H (0-0) % Abs Neuts (Manual) 10.5 H (1.8-7.7) th/mm3 Helmet Cells Occ H (None) APTT 57.6 H D (23.4-31.7) sec Fibrinogen 380 H (227-377) mg/dL POC Sodium (137-144) mmol/L Sodium (136-145) meq/L POC Chloride (102-111) mmol/L POC Glucose 125 H (68-110) mg/dL Random Glucose (74-106) mg/dL Calcium (8.5-10.1) mg/dL Troponin I (0.02-0.05) ng/mL Total Protein (6.4-8.2) g/dL Albumin (3.4-5.0) g/dL Ur Specific [place] (1.002-1.035) Urine Ketones (Negative) mg/dL Urine Mucus (Occasional) /lpf 05/12/18 05/12/18 05/12/18 Range/Units 00:15 06:22 09:08 WBC (4.0-11.0) th/mm3 RBC (4.50-5.90) mil/mm3 Hgb (13.0-17.0) gm/dL POC Hgb (Calc) (13.0-17.0) g/dL Hct (39.0-51.0) % POC Hct (39-51.0) % MCHC (32.0-36.0) % Neut % (Auto) (16.0-70.0) % Lymph % (Auto) (9.0-44.0) % [place] % (Auto) (0.0-8.0) % Neut # (Auto) (1.8-7.7) th/mm3 [place] # (Auto) (0.0-0.9) th/mm3 Seg Neuts % (Manual) (16-70) % Myelocytes % (Man) (0-0) % Abs Neuts (Manual) (1.8-7.7) th/mm3 Helmet Cells (None) APTT (23.4-31.7) sec Fibrinogen (227-377) mg/dL POC Sodium (137-144) mmol/L Sodium 133 L 133 L (136-145) meq/L POC Chloride (102-111) mmol/L POC Glucose 152 H (68-110) mg/dL Random Glucose 116 H (74-106) mg/dL Calcium 7.5 L 8.1 L (8.5-10.1) mg/dL Troponin I Less than 0.02 L (0.02-0.05) ng/mL Total Protein 6.2 L (6.4-8.2) g/dL Albumin 3.2 L (3.4-5.0) g/dL Ur Specific [place] (1.002-1.035) Urine Ketones (Negative) mg/dL Urine Mucus (Occasional) /lpf 05/12/18 05/12/18 Range/Units 10:41 11:33 WBC (4.0-11.0) th/mm3 RBC (4.50-5.90) mil/mm3 Hgb (13.0-17.0) gm/dL POC Hgb (Calc) (13.0-17.0) g/dL Hct (39.0-51.0) % POC Hct (39-51.0) % MCHC (32.0-36.0) % Neut % (Auto) (16.0-70.0) % Lymph % (Auto) (9.0-44.0) % [place] % (Auto) (0.0-8.0) % Neut # (Auto) (1.8-7.7) th/mm3 [place] # (Auto) (0.0-0.9) th/mm3 Seg Neuts % (Manual) (16-70) % Myelocytes % (Man) (0-0) % Abs Neuts (Manual) (1.8-7.7) th/mm3 Helmet Cells (None) APTT 63.1 H D (23.4-31.7) sec Fibrinogen (227-377) mg/dL POC Sodium (137-144) mmol/L Sodium (136-145) meq/L POC Chloride (102-111) mmol/L POC Glucose 147 H (68-110) mg/dL Random Glucose (74-106) mg/dL Calcium (8.5-10.1) mg/dL Troponin I (0.02-0.05) ng/mL Total Protein (6.4-8.2) g/dL Albumin (3.4-5.0) g/dL Ur Specific [place] (1.002-1.035) Urine Ketones (Negative) mg/dL Urine Mucus (Occasional) /lpf Short CBC 05/11/18 05/12/18 Range/Units 15:11 00:15 WBC 15.4 H 12.6 H (4.0-11.0) th/mm3 Hgb 10.1 L 9.5 L (13.0-17.0) gm/dL Hct 28.8 L 26.1 L (39.0-51.0) % Plt Count 287 238 (150-450) th/mm3 BMP 05/12/18 05/12/18 00:15 06:22 Sodium 133 L 133 L Potassium 3.7 3.9 Chloride 100 102 Carbon Dioxide 25.2 23.3 BUN 17 16 Creatinine 0.68 0.69 Calcium 7.5 L 8.1 L Cardiac Enzymes 05/11/18 05/12/18 05/12/18 Range/Units 15:11 00:15 06:22 Total Creatine Kinase 88 90 92 (39-308) U/L Troponin I Less than 0.02 L Less than 0.02 L (0.02-0.05) ng/mL Liver Function 05/12/18 Range/Units 00:15 Total Bilirubin 0.4 (0.2-1.0) mg/dL AST 18 (15-37) U/L ALT 28 (12-78) U/L Alkaline Phosphatase 66 (45-117) U/L Albumin 3.2 L (3.4-5.0) g/dL Urine 05/11/18 Range/Units 19:30 Urine Color Straw (Yellw/Straw) Urine Clarity Clear (Clear) Urine pH 6.0 (5.0-8.5) Ur Specific [place] 1.055 H (1.002-1.035) Urine Protein Negative (Neg-Trace) mg/dL Urine Glucose (UA) Negative (Negative) mg/dL <Facundo Thomas - 05/12/18 14:40> Abnormal lab results 05/11/18 05/11/18 05/11/18 Range/Units 15:11 15:11 15:11 WBC 15.4 H (4.0-11.0) th/mm3 RBC 3.35 L (4.50-5.90) mil/mm3 Hgb 10.1 L (13.0-17.0) gm/dL POC Hgb (Calc) 10.2 L (13.0-17.0) g/dL Hct 28.8 L (39.0-51.0) % POC Hct 30.0 L (39-51.0) % MCHC (32.0-36.0) % Neut % (Auto) 77.6 H (16.0-70.0) % Lymph % (Auto) (9.0-44.0) % [place] % (Auto) 8.1 H (0.0-8.0) % Neut # (Auto) 12.0 H (1.8-7.7) th/mm3 [place] # (Auto) 1.3 H (0.0-0.9) th/mm3 Seg Neuts % (Manual) (16-70) % Myelocytes % (Man) (0-0) % Abs Neuts (Manual) (1.8-7.7) th/mm3 Helmet Cells (None) APTT (23.4-31.7) sec Fibrinogen 412 H (227-377) mg/dL POC Sodium 129 L (137-144) mmol/L Sodium (136-145) meq/L POC Chloride 92 L (102-111) mmol/L POC Glucose 115 H (68-110) mg/dL Random Glucose (74-106) mg/dL Calcium (8.5-10.1) mg/dL Troponin I Less than 0.02 L (0.02-0.05) ng/mL Total Protein (6.4-8.2) g/dL Albumin (3.4-5.0) g/dL Ur Specific [place] (1.002-1.035) Urine Ketones (Negative) mg/dL Urine Mucus (Occasional) /lpf 05/11/18 05/11/18 05/11/18 Range/Units 19:30 20:56 21:04 WBC (4.0-11.0) th/mm3 RBC (4.50-5.90) mil/mm3 Hgb (13.0-17.0) gm/dL POC Hgb (Calc) (13.0-17.0) g/dL Hct (39.0-51.0) % POC Hct (39-51.0) % MCHC (32.0-36.0) % Neut % (Auto) (16.0-70.0) % Lymph % (Auto) (9.0-44.0) % [place] % (Auto) (0.0-8.0) % Neut # (Auto) (1.8-7.7) th/mm3 [place] # (Auto) (0.0-0.9) th/mm3 Seg Neuts % (Manual) (16-70) % Myelocytes % (Man) (0-0) % Abs Neuts (Manual) (1.8-7.7) th/mm3 Helmet Cells (None) APTT (23.4-31.7) sec Fibrinogen (227-377) mg/dL POC Sodium (137-144) mmol/L Sodium (136-145) meq/L POC Chloride (102-111) mmol/L POC Glucose 59 L 120 H (68-110) mg/dL Random Glucose (74-106) mg/dL Calcium (8.5-10.1) mg/dL Troponin I (0.02-0.05) ng/mL Total Protein (6.4-8.2) g/dL Albumin (3.4-5.0) g/dL Ur Specific [place] 1.055 H (1.002-1.035) Urine Ketones Trace H (Negative) mg/dL Urine Mucus Few H (Occasional) /lpf 05/11/18 05/12/18 05/12/18 Range/Units 21:50 00:15 00:15 WBC 12.6 H (4.0-11.0) th/mm3 RBC 3.04 L (4.50-5.90) mil/mm3 Hgb 9.5 L (13.0-17.0) gm/dL POC Hgb (Calc) (13.0-17.0) g/dL Hct 26.1 L (39.0-51.0) % POC Hct (39-51.0) % MCHC 36.6 H (32.0-36.0) % Neut % (Auto) 81.9 H (16.0-70.0) % Lymph % (Auto) 8.7 L (9.0-44.0) % [place] % (Auto) (0.0-8.0) % Neut # (Auto) 10.3 H (1.8-7.7) th/mm3 [place] # (Auto) 1.0 H (0.0-0.9) th/mm3 Seg Neuts % (Manual) 81 H (16-70) % Myelocytes % (Man) 1 H (0-0) % Abs Neuts (Manual) 10.5 H (1.8-7.7) th/mm3 Helmet Cells Occ H (None) APTT 57.6 H D (23.4-31.7) sec Fibrinogen 380 H (227-377) mg/dL POC Sodium (137-144) mmol/L Sodium (136-145) meq/L POC Chloride (102-111) mmol/L POC Glucose 125 H (68-110) mg/dL Random Glucose (74-106) mg/dL Calcium (8.5-10.1) mg/dL Troponin I (0.02-0.05) ng/mL Total Protein (6.4-8.2) g/dL Albumin (3.4-5.0) g/dL Ur Specific [place] (1.002-1.035) Urine Ketones (Negative) mg/dL Urine Mucus (Occasional) /lpf 05/12/18 05/12/18 05/12/18 Range/Units 00:15 06:22 09:08 WBC (4.0-11.0) th/mm3 RBC (4.50-5.90) mil/mm3 Hgb (13.0-17.0) gm/dL POC Hgb (Calc) (13.0-17.0) g/dL Hct (39.0-51.0) % POC Hct (39-51.0) % MCHC (32.0-36.0) % Neut % (Auto) (16.0-70.0) % Lymph % (Auto) (9.0-44.0) % [place] % (Auto) (0.0-8.0) % Neut # (Auto) (1.8-7.7) th/mm3 [place] # (Auto) (0.0-0.9) th/mm3 Seg Neuts % (Manual) (16-70) % Myelocytes % (Man) (0-0) % Abs Neuts (Manual) (1.8-7.7) th/mm3 Helmet Cells (None) APTT (23.4-31.7) sec Fibrinogen (227-377) mg/dL POC Sodium (137-144) mmol/L Sodium 133 L 133 L (136-145) meq/L POC Chloride (102-111) mmol/L POC Glucose 152 H (68-110) mg/dL Random Glucose 116 H (74-106) mg/dL Calcium 7.5 L 8.1 L (8.5-10.1) mg/dL Troponin I Less than 0.02 L (0.02-0.05) ng/mL Total Protein 6.2 L (6.4-8.2) g/dL Albumin 3.2 L (3.4-5.0) g/dL Ur Specific [place] (1.002-1.035) Urine Ketones (Negative) mg/dL Urine Mucus (Occasional) /lpf Short CBC 05/11/18 05/12/18 Range/Units 15:11 00:15 WBC 15.4 H 12.6 H (4.0-11.0) th/mm3 Hgb 10.1 L 9.5 L (13.0-17.0) gm/dL Hct 28.8 L 26.1 L (39.0-51.0) % Plt Count 287 238 (150-450) th/mm3 BMP 05/12/18 05/12/18 00:15 06:22 Sodium 133 L 133 L Potassium 3.7 3.9 Chloride 100 102 Carbon Dioxide 25.2 23.3 BUN 17 16 Creatinine 0.68 0.69 Calcium 7.5 L 8.1 L Cardiac Enzymes 05/11/18 05/12/18 05/12/18 Range/Units 15:11 00:15 06:22 Total Creatine Kinase 88 90 92 (39-308) U/L Troponin I Less than 0.02 L Less than 0.02 L (0.02-0.05) ng/mL Liver Function 05/12/18 Range/Units 00:15 Total Bilirubin 0.4 (0.2-1.0) mg/dL AST 18 (15-37) U/L ALT 28 (12-78) U/L Alkaline Phosphatase 66 (45-117) U/L Albumin 3.2 L (3.4-5.0) g/dL Urine 05/11/18 Range/Units 19:30 Urine Color Straw (Yellw/Straw) Urine Clarity Clear (Clear) Urine pH 6.0 (5.0-8.5) Ur Specific [place] 1.055 H (1.002-1.035) Urine Protein Negative (Neg-Trace) mg/dL Urine Glucose (UA) Negative (Negative) mg/dL <Eko,Chantel U - 05/12/18 11:17> - Imaging Impressions Chest X-Ray 05/11/18 15:17 CONCLUSION: 1. Probable medial right lower lung zone atelectasis. Head CT 05/11/18 15:17 CONCLUSION: 1. No acute intracranial abnormality is identified. 2. Stable chronic findings include mild generalized atrophy and asymmetric periventricular white matter low-attenuation. These findings were relayed in person by the invasive cardiovascular technologist to Dr. Muñoz on 05/11/2018 at approximately 3:39 PM. Head CTA 05/11/18 15:17 CONCLUSION: 1. Left internal carotid occlusion, similar to what was seen on 04/17/2018. . Neck CTA 05/11/18 15:17 CONCLUSION: Chronic occlusion of the left internal carotid artery. Previous right endarterectomy without evidence of recurrent stenosis. 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 Head CT 05/12/18 00:16 CONCLUSION: 1. Chronic small vessel ischemic change. No acute intracranial abnormality. Report was called by [Dr. Solorzano to Dr. Serrato and to Dr. Tilley at 0033 hours. There is a delay in interpretation of this study due to an issue with the [employer] system. ] Chest X-Ray 05/12/18 02:51 CONCLUSION: Central line without pneumothorax. <Facundo Thomas - 05/12/18 14:40> Impressions Chest X-Ray 05/11/18 15:17 CONCLUSION: 1. Probable medial right lower lung zone atelectasis. Head CT 05/11/18 15:17 CONCLUSION: 1. No acute intracranial abnormality is identified. 2. Stable chronic findings include mild generalized atrophy and asymmetric periventricular white matter low-attenuation. These findings were relayed in person by the invasive cardiovascular technologist to Dr. Muñoz on 05/11/2018 at approximately 3:39 PM. Head CTA 05/11/18 15:17 CONCLUSION: 1. Left internal carotid occlusion, similar to what was seen on 04/17/2018. . Neck CTA 05/11/18 15:17 CONCLUSION: Chronic occlusion of the left internal carotid artery. Previous right endarterectomy without evidence of recurrent stenosis. 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 Head CT 05/12/18 00:16 CONCLUSION: 1. Chronic small vessel ischemic change. No acute intracranial abnormality. Report was called by [Dr. Solorzano to Dr. Serrato and to Dr. Tilley at 0033 hours. There is a delay in interpretation of this study due to an issue with the [employer] system. ] Chest X-Ray 05/12/18 02:51 CONCLUSION: Central line without pneumothorax. <Chantel Luis U - 05/12/18 11:17> Physical Exam Vital signs: Vital Signs 05/11/18 15:56 05/11/18 16:00 05/11/18 16:14 Temperature Pulse Rate 97 H 103 H 98 H Respiratory Rate 18 18 Blood Pressure 138/60 130/56 L Pulse Oximetry 91 L 94 L 05/11/18 16:16 05/11/18 16:18 05/11/18 17:00 Temperature Pulse Rate 103 H Respiratory Rate 20 Blood Pressure 146/105 H Pulse Oximetry 91 L 91 L 98 05/11/18 19:24 05/11/18 20:00 05/12/18 00:00 Temperature 97.6 F Pulse Rate 100 H 95 H 96 H Respiratory Rate 18 18 14 Blood Pressure 93/50 L 103/57 L 106/63 Pulse Oximetry 96 97 05/12/18 00:01 05/12/18 00:02 05/12/18 00:23 Temperature 98.3 F Pulse Rate 122 H 109 H Respiratory Rate 23 Blood Pressure 152/77 H 137/70 Pulse Oximetry 98 05/12/18 00:40 05/12/18 01:00 05/12/18 01:09 Temperature Pulse Rate 105 H 97 H 95 H Respiratory Rate 29 H 16 15 Blood Pressure 114/55 L 103/59 L Pulse Oximetry 98 97 95 05/12/18 01:15 05/12/18 01:30 05/12/18 01:45 Temperature Pulse Rate 96 H 92 H 98 H Respiratory Rate 15 14 18 Blood Pressure 106/63 101/65 95/65 L Pulse Oximetry 96 96 97 05/12/18 02:00 05/12/18 02:15 05/12/18 02:30 Temperature Pulse Rate 96 H 98 H 98 H Respiratory Rate 16 17 Blood Pressure 125/58 L 117/58 L 111/64 Pulse Oximetry 96 97 97 05/12/18 02:45 05/12/18 03:00 05/12/18 03:15 Temperature Pulse Rate 98 H 101 H 99 H Respiratory Rate 26 H 23 Blood Pressure 116/64 128/63 134/73 Pulse Oximetry 97 97 98 05/12/18 03:30 05/12/18 03:45 05/12/18 03:59 Temperature Pulse Rate 97 H 99 H 98 H Respiratory Rate 16 17 17 Blood Pressure 129/78 109/65 Pulse Oximetry 96 96 97 05/12/18 04:00 05/12/18 04:15 05/12/18 04:30 Temperature 98.4 F Pulse Rate 87 92 H 97 H Respiratory Rate 17 17 40 H Blood Pressure 122/77 119/71 127/72 Pulse Oximetry 98 96 98 05/12/18 04:45 05/12/18 05:00 05/12/18 05:15 Temperature Pulse Rate 91 H 87 86 Respiratory Rate 33 H 25 H 14 Blood Pressure 122/75 135/76 144/73 H Pulse Oximetry 97 98 98 05/12/18 05:30 05/12/18 05:45 05/12/18 06:00 Temperature Pulse Rate 87 107 H 89 Respiratory Rate 17 39 H 28 H Blood Pressure 156/69 H 138/88 137/89 Pulse Oximetry 99 98 98 05/12/18 06:15 05/12/18 06:30 05/12/18 06:45 Temperature Pulse Rate 97 H 97 H 94 H Respiratory Rate 36 H 34 H 38 H Blood Pressure 164/82 H 159/77 H 149/79 H Pulse Oximetry 98 98 98 05/12/18 07:00 05/12/18 07:15 05/12/18 07:30 Temperature Pulse Rate 94 H 96 H 97 H Respiratory Rate 27 H 37 H 35 H Blood Pressure 147/77 H 142/75 H 183/83 H Pulse Oximetry 97 98 97 05/12/18 07:31 05/12/18 07:45 05/12/18 07:50 Temperature Pulse Rate 104 H 108 H 99 H Respiratory Rate 40 H 37 H 30 H Blood Pressure 158/73 H 184/97 H 144/74 H Pulse Oximetry 98 98 98 05/12/18 08:00 05/12/18 08:08 05/12/18 08:15 Temperature Pulse Rate 90 98 H Respiratory Rate 27 H 29 H Blood Pressure 142/64 H 142/77 H Pulse Oximetry 96 100 97 05/12/18 08:30 05/12/18 08:45 05/12/18 09:00 Temperature Pulse Rate 94 H 98 H 96 H Respiratory Rate 16 21 16 Blood Pressure 151/72 H 149/72 H 150/80 H Pulse Oximetry 97 98 97 05/12/18 09:15 05/12/18 09:30 05/12/18 09:45 Temperature Pulse Rate 96 H 93 H 99 H Respiratory Rate 26 H 24 36 H Blood Pressure 138/76 132/75 167/74 H Pulse Oximetry 97 97 99 05/12/18 10:00 05/12/18 10:15 05/12/18 10:30 Temperature Pulse Rate 93 H 97 H 102 H Respiratory Rate 24 36 H 36 H Blood Pressure 142/64 H 153/72 H 167/81 H Pulse Oximetry 97 98 99 05/12/18 10:45 05/12/18 11:00 05/12/18 11:15 Temperature Pulse Rate 106 H 122 H Respiratory Rate 42 H 53 H 49 H Blood Pressure 169/91 H 162/74 H 153/75 H Pulse Oximetry 98 99 99 05/12/18 11:22 05/12/18 11:30 05/12/18 11:45 Temperature Pulse Rate 90 97 H 93 H Respiratory Rate 42 H 33 H Blood Pressure 142/64 H 139/69 123/75 Pulse Oximetry 97 96 05/12/18 12:00 Temperature Pulse Rate 98 H Respiratory Rate 29 H Blood Pressure 155/68 H Pulse Oximetry 96 Intake & Output 05/11/18 05/12/18 05/12/18 18:59 06:59 18:59 Intake Total 1780 / 1780 1000 / 1000 Output Total 675 / 675 Balance 1105 / 1105 1000 / 1000 Weight 84.2 kg 85.2 kg Intake: IV 1780 / 1780 1000 / 1000 NS Inj 1,000 ML @ 100 mls/hr IV 1280 / 1280 1000 / 1000 .CONT .Q10H DIONISIO Rx#:[id number] NS Inj 500 ML @ 1000 mls/hr IV. 500 / 500 SIG BOLUS DIONISIO Rx#:[id number] Oral 0 / 0 Output: Urine 675 / 675 Other: # Voids 3 Date of Last Bowel Movement 05/11/18 <Facundo Thomas - 05/12/18 14:40> Vital Signs 05/11/18 15:56 05/11/18 16:00 05/11/18 16:14 Temperature Pulse Rate 97 H 103 H 98 H Respiratory Rate 18 18 Blood Pressure 138/60 130/56 L Pulse Oximetry 91 L 94 L 05/11/18 16:16 05/11/18 16:18 05/11/18 17:00 Temperature Pulse Rate 103 H Respiratory Rate 20 Blood Pressure 146/105 H Pulse Oximetry 91 L 91 L 98 05/11/18 19:24 05/11/18 20:00 05/12/18 00:00 Temperature 97.6 F Pulse Rate 100 H 95 H 96 H Respiratory Rate 18 18 14 Blood Pressure 93/50 L 103/57 L 106/63 Pulse Oximetry 96 97 12/06/18 00:01 05/12/18 00:02 05/12/18 00:23 Temperature 98.3 F Pulse Rate 122 H 109 H Respiratory Rate 23 Blood Pressure 152/77 H 137/70 Pulse Oximetry 98 05/12/18 00:40 05/12/18 01:00 05/12/18 01:09 Temperature Pulse Rate 105 H 97 H 95 H Respiratory Rate 29 H 16 15 Blood Pressure 114/55 L 103/59 L Pulse Oximetry 98 97 95 05/12/18 01:15 05/12/18 01:30 05/12/18 01:45 Temperature Pulse Rate 96 H 92 H 98 H Respiratory Rate 15 14 18 Blood Pressure 106/63 101/65 95/65 L Pulse Oximetry 96 96 97 05/12/18 02:00 05/12/18 02:15 05/12/18 02:30 Temperature Pulse Rate 96 H 98 H 98 H Respiratory Rate 16 17 Blood Pressure 125/58 L 117/58 L 111/64 Pulse Oximetry 96 97 97 05/12/18 02:45 05/12/18 03:00 05/12/18 03:15 Temperature Pulse Rate 98 H 101 H 99 H Respiratory Rate 26 H 23 Blood Pressure 116/64 128/63 134/73 Pulse Oximetry 97 97 98 05/12/18 03:30 05/12/18 03:45 05/12/18 03:59 Temperature Pulse Rate 97 H 99 H 98 H Respiratory Rate 16 17 17 Blood Pressure 129/78 109/65 Pulse Oximetry 96 96 97 05/12/18 04:00 05/12/18 04:15 05/12/18 04:30 Temperature 98.4 F Pulse Rate 87 92 H 97 H Respiratory Rate 17 17 40 H Blood Pressure 122/77 119/71 127/72 Pulse Oximetry 98 96 98 05/12/18 04:45 05/12/18 05:00 05/12/18 05:15 Temperature Pulse Rate 91 H 87 86 Respiratory Rate 33 H 25 H 14 Blood Pressure 122/75 135/76 144/73 H Pulse Oximetry 97 98 98 05/12/18 05:30 05/12/18 05:45 05/12/18 06:00 Temperature Pulse Rate 87 107 H 89 Respiratory Rate 17 39 H 28 H Blood Pressure 156/69 H 138/88 137/89 Pulse Oximetry 99 98 98 05/12/18 06:15 05/12/18 06:30 05/12/18 06:45 Temperature Pulse Rate 97 H 97 H 94 H Respiratory Rate 36 H 34 H 38 H Blood Pressure 164/82 H 159/77 H 149/79 H Pulse Oximetry 98 98 98 05/12/18 07:00 05/12/18 07:15 05/12/18 07:30 Temperature Pulse Rate 94 H 96 H 97 H Respiratory Rate 27 H 37 H 35 H Blood Pressure 147/77 H 142/75 H 183/83 H Pulse Oximetry 97 98 97 05/12/18 07:31 05/12/18 07:45 05/12/18 07:50 Temperature Pulse Rate 104 H 108 H 99 H Respiratory Rate 40 H 37 H 30 H Blood Pressure 158/73 H 184/97 H 144/74 H Pulse Oximetry 98 98 98 05/12/18 08:00 05/12/18 08:08 05/12/18 08:15 Temperature Pulse Rate 90 98 H Respiratory Rate 27 H 29 H Blood Pressure 142/64 H 142/77 H Pulse Oximetry 96 100 97 05/12/18 08:30 05/12/18 08:45 05/12/18 09:00 Temperature Pulse Rate 94 H 98 H 100 H Respiratory Rate 16 21 Blood Pressure 151/72 H 149/72 H Pulse Oximetry 97 98 Intake & Output 05/11/18 05/12/18 05/12/18 18:59 06:59 18:59 Intake Total 1780 / 1780 1000 / 1000 Output Total 675 / 675 Balance 1105 / 1105 1000 / 1000 Weight 84.2 kg 85.2 kg Intake: IV 1780 / 1780 1000 / 1000 NS Inj 1,000 ML @ 100 mls/hr IV 1280 / 1280 1000 / 1000 .CONT .Q10H DIONISIO Rx#:[id number] NS Inj 500 ML @ 1000 mls/hr IV. 500 / 500 SIG BOLUS DIONISIO Rx#:[id number] Oral 0 / 0 Output: Urine 675 / 675 Other: # Voids 3 Date of Last Bowel Movement 05/11/18 <Eko,Chantel U - 05/12/18 11:38> Narrative: General: Well-developed, alert, and in no acute distress. Appears stated age. He is oriented to person and place but not time. He stated that Peter is the president HEENT: Atraumatic, moist mucous membranes Neck: Supple, non-tender without masses or lymphadenopathy, trachea midline Cardiac: Tachycardic with regular rhythm without murmur Pulmonary: Non-labored breathing. Lungs clear to auscultation bilaterally with good air movement Abdomen: Normal bowel sounds, soft and non-tender without rebound or guarding Extremities: No edema, 2+ pedal pulses, capillary refill less than 2 seconds Neurologic: He has significant slurring of his speech. He follows commands well , has a hearing aid in place. Pronator drift on the right side. 5 out of 5 strength in the left upper and lower extremities. 4 out of 5 strength in the right upper and lower extremities. facial muscle asymmetry noted with smiling. <Chantel Luis U - 05/12/18 11:38> Assessment and Plan - Assessment (1) Acute CVA (cerebrovascular accident) Code(s): I63.9 - Cerebral infarction, unspecified Status: Acute (2) Confusion Code(s): R41.0 - Disorientation, unspecified Status: Acute (3) Hypertension Code(s): I10 - Essential (primary) hypertension Status: Acute (4) Internal carotid artery stenosis Code(s): I65.29 - Occlusion and stenosis of unspecified carotid artery Status : Acute (5) Dysarthria Code(s): R47.1 - Dysarthria and anarthria Status: Acute <Facundo Thomas - 05/12/18 14:40> (1) Acute CVA (cerebrovascular accident) Code(s): I63.9 - Cerebral infarction, unspecified Status: Acute (2) Confusion Code(s): R41.0 - Disorientation, unspecified Status: Acute (3) Hypertension Code(s): I10 - Essential (primary) hypertension Status: Acute (4) Internal carotid artery stenosis Code(s): I65.29 - Occlusion and stenosis of unspecified carotid artery Status : Acute (5) Dysarthria Code(s): R47.1 - Dysarthria and anarthria Status: Acute <Chantel Luis U - 05/12/18 11:38> - Assessment and Plan Patient is an 83-year-old male who presented with right-sided weakness onset on 05/11/2018 at about 10 AM. His symptoms at presentation included right-sided weakness, dysarthria, expressive and receptive aphasia, and potentially increased confusion. He is oriented to person and place, but not time. He had a recent stroke about 3 weeks ago and was in rehab. His mental status over the past few weeks is unclear. His son states that he is currently not much different than baseline, however he is unable to say why he is in the hospital and unable to state the year. 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 at bedtime -HbA1c pending -Physical therapy to evaluate and treat * Recommends rehab -OT discharge recommendation is pending -Speech therapy: Evaluation for dysphasia and swallowing pending Chronic hypertension: -Hold home antihypertensives Labetalol for SBP greater than 220 or DBP greater than 120 Confusion: This may be entirely from his CVA, however other causes may contribute especially considering the time course of his symptoms. -Urinalysis to assess for UTI - negative Fluids: Normal saline at 100 cc/h Electrolytes: monitor and replete as needed Nutrition: NPO until cleared by speech therapy GI prophylaxis: not indicated VTE prophylaxis: Subcutaneous Lovenox CODE STATUS: Today, son intimated that he should be DNR per his wishes and agreed to a palliative care consult to clearly delineate goals of care. Notably this particular son is not his HCS/POA. <Chantel Luis U - 05/12/18 11:47> - Attending Attestation See the residents documentation for details. I saw and evaluated the patient regarding the jenkins portions of this evaluation and agree with the residents findings and plans as written. Parts of this note were created using [employer] voice recognition software program. While efforts were made to correct any mistakes made by this software, some mistakes, errors, and omissions may remain in the final note that were not caught when the note was originally created. Plan of care was discussed and agreed upon with the patient as specifically documented in the above note. An opportunity to ask questions with explanation was provided. Patient voiced understanding on all information reviewed and discussed. <Facundo Thomas - 05/12/18 14:40>
--- NOTE | 2018-05-12 11:42 | P.CONPAL ---
Consult Service: Palliative Care Requesting Physician: Chantel Luis Reason for Consult: a. To assist with evaluation and management of symptoms including: pain, debility b. To assist medical decision maker(s) with: better understanding of current medical conditions; weighing benefits/burdens of medical treatment options; making medical treatment decisions. Primary Care Provider: UNKNOWN History of Present Illness History of Present Illness: Mr. Barber is an 83-year-old male who presented to [facility] on 05/11/2018 via EMS as a stroke alert. Approximately 3 weeks earlier the patient suffered a stroke which left him with residual right-sided weakness, mild dysarthria, intermittent confusion. Upon discharge on 04/24/18, Mr. Barber was transferred to [facility]. His functional status was slowly improving until the morning of 05/11/2018 when he developed additional, increased symptoms. Symptoms were moderate to severe, constant with no alleviating factors noted. Clinical data: * Vital signs: Pulse 97, respirations 18, oxygen saturation 91% on room air, BP 138/60 * WBC: 15.4, hemoglobin 10.1, hematocrit 28.8, platelets 287, neutrophils 77.6% * PT: 10.9, INR 1.1, AP DT 27.9, fibrinogen 412 * Sodium: 129, potassium 4.1, chloride 92, glucose 115 * BUN: 20, creatinine 0.7 * Total creatine kinase: 88 * Troponin: <0.02 * Chest x-ray with probable medial right lower lung zone atelectasis. Stroke assessment was obtained; the patient's stroke scale was 11. Patient recently underwent a right carotid endarterectomy for 70% stenosis; the left side was 100% occluded. Patient is on aspirin and Plavix. CT head and CTA of the head/neck revealed no acute changes. Dr. Serrato (neurology) evaluated the patient who was not a candidate for TPA due to his recent stroke. 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 The entire region of involvement is approximately 2.2 x 8.4 cm in greatest transaxial dimension. Patient was started on heparin at 12 units/kg /hr. Vasopressors were recommended to raise the mean arterial pressure to increase cerebral perfusion. Critical care was consulted; central line placed and the patient was started on a phenylephrine drip. Palliative Care was consulted to assist with symptom management and to discuss with the patient/family the benefits and burdens of his current illnesses and the options regarding future care. Patient seen and assessed in [facility]; room 1331 Patient is awake and alert. Responds to some questions with brief 1-2 word answers. Follows simple one- step commands. Right-sided deficits noted with dysarthria. Speech therapy was consulted for swallow evaluation; recommendations for a mechanical soft diet with thin liquids. Patient complaining of suprapubic pain with no palpable bladder distention. History is significant for BPH. Condom cath draining clear yellow urine. Will administer Tamsulosin that was on hold pending swallow evaluation. Spoke with the patient's son in the family conference room and again at the patient's bedside with present. A second son (Néstor) participated in the family meeting via conference call. Medical update provided, recent decline reviewed. Family believes the patient completed written advanced directive and will bring a copy of the documents when they are found. Patient's and 2 sons state the patient would not want cardiopulmonary resuscitation in the event that his condition deteriorates. Patient agrees with his family stating he would not want CPR. Patient's insight/judgement related to his medical conditions is limited; I would not recommend allowing the patient to make medical decisions on his own at this time. CODE STATUS changed to NO CODE/DNR Function/Cognitive Trajectory: Patient's son states that up until the initial stroke in 04/2018, his father was at 100%. He states his father has been very healthy and active his entire life. Patient transferred to an SNF for rehab at discharge with slow improvement in functional status until 05/11/2018 when the patient returned to the ED with garbled speech and increased weakness. Patient's son states the patient has lost approximately 15 pounds in the past 2 months. He states he continued to be confused on some days but was ambulating with a walker. 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 HTN (hypertension) - Surgical History Surgical History: Surgical History (Last Updated 05/12/18 @ 11:15 by NADJA Bonilla) H/O carotid endarterectomy H/O arthroscopic knee surgery - Family History Family History: Family History (Last Updated 05/12/18 @ 11:21 by NADJA Bonilla) Sister Diabetes Mother CVA (cerebral vascular accident) - Social History I have reviewed the patient's Social History: Yes - Tobacco History Second Hand Smoke Exposure: No Tobacco Use In Past 30 Days: No Smoking Status: Former smoker (Quit smoking approximately 40 years ago) Tobacco Type: Cigarettes Packs Per Day: 1 years: 20 - Alcohol History How Often Do You Have a Drink Containing Alcohol: Never - Substance Use History Substance History: No History of Abuse - Travel History Recent Travel in the [place] Within the Last 8 Weeks: No Recent Travel Out of the Country Within the Last 8 Weeks: No - Immunization History Tetanus Immunization: Unsure Medications and Allergies Active Medications: Active Medications Aspirin (Aspirin Chew) 81 mg PO DAILY [facility] Last Admin: 05/12/18 10:10 Dose: Not Given Atorvastatin Calcium (Lipitor) 80 mg PO DAILY [facility] Last Admin: 05/12/18 10:10 Dose: Not Given Dextrose (D50w Vial) 50 ml IV.PUSH UNSCH PRN PRN Reason: PER HYPOGLYCEMIA PROTOCOL Glucagon (Glucagon Inj) 1 mg OTHER UNSCH PRN PRN Reason: for Hypoglycemia Protocol Sodium Chloride (Ns Inj) 1,000 mls @ 100 mls/hr IV.CONT .Q10H [facility] Last Admin: 05/12/18 10:50 Dose: 165 mls/hr Heparin Sodium/Dextrose (Heparin/D5w 25,000 U/250 Ml) 25,000 unit in 250 mls @ 0 mls/hr IV.CONT TITRATE PRN; Protocol PRN Reason: Per Protocol Last Titration: 05/12/18 02:00 Dose: 0 units/hr, 0 mls/hr Phenylephrine HCl 160 mg/ (Sodium Chloride) 500 mls @ 7.5 mls/hr IV.CONT TITRATE PRN; Protocol PRN Reason: See protol Last Admin: 05/12/18 03:52 Dose: 40 mcg/min, 7.5 mls/hr Magnesium Sulfate 4 gm/ Sodium (Chloride) 100 mls @ 50 mls/hr IV.SIG UNSCH PRN PRN Reason: For Magnesium 0.9 - 1.1 mg/dL Magnesium Sulfate 2 gm/ Sodium (Chloride) 100 mls @ 50 mls/hr IV.SIG UNSCH PRN PRN Reason: For Magnesium 1.2 - 1.6 mg/dL Potassium Chloride (Kcl 40 Meq Premix Inj) 40 meq in 100 mls @ 25 mls/hr IV.SIG Q2H PRN PRN Reason: For Potassium 2.8 - 3.2 mEq/L Potassium Chloride (Kcl 20 Meq Premix Inj) 20 meq in 100 mls @ 50 mls/hr IV.SIG Q2H PRN PRN Reason: For Potassium 3.3 - 3.5 mEq/L Potassium Chloride (Kcl 40 Meq Premix Inj) 40 meq in 100 mls @ 25 mls/hr IV.SIG UNSCH PRN PRN Reason: For Potassium 3.3 - 3.5 mEq/L Potassium Chloride (Kcl 20 Meq Premix Inj) 20 meq in 100 mls @ 50 mls/hr IV.SIG Q2H PRN PRN Reason: For Potassium 2.8 - 3.2 mEq/L Potassium Phosphate 30 mmol/ (Sodium Chloride) 260 mls @ 42 mls/hr IV.SIG UNSCH PRN PRN Reason: SEE LABEL COMMENTS Sodium Phosphate 30 mmol/ (Sodium Chloride) 260 mls @ 42 mls/hr IV.SIG UNSCH PRN PRN Reason: For Phosphorus < 2.5 mg/dL Insulin Aspart (Novolog Insulin Correctional Sugar Inj) 0 unit SQ Q6HR DIONISIO; Protocol Last Admin: 05/12/18 05:51 Dose: Not Given Magnesium Oxide (Mag-Ox) 800 mg PO UNSCH PRN PRN Reason: For Magnesium 1.2 - 1.6 mg/dL Potassium Bicarb/Potassium Chloride (K-Lyte Cl Eff) 50 meq PO UNSCH PRN PRN Reason: For Potassium 3.3 - 3.5 mEq/L Potassium Phosphate (K-Phos Original) 2,000 mg PO Q4H PRN PRN Reason: Phosphorus Less Than 2.5 mg/dL Potassium Phosphate (K-Phos Original) 2,000 mg PO UNSCH PRN PRN Reason: SEE LABEL COMMENTS Sodium Chloride (Ns Flush) 2 ml IV.FLUSH BID [facility]IONISIO Last Admin: 05/12/18 09:50 Dose: 2 ml Sodium Chloride (Ns Flush) 2 ml IV.FLUSH PRN PRN PRN Reason: FLUSH AFTER USING IV ACCESS Sodium Chloride (Ns Flush) 0 ml IV.FLUSH DAILY [facility] Last Admin: 05/12/18 09:50 Dose: 10 ml Tamsulosin HCl (Flomax) 0.4 mg PO DAILY [facility] Last Admin: 05/12/18 10:10 Dose: Not Given Terbutaline Sulfate (Brethine Inj) 1 mg SQ UNSCH PRN PRN Reason: For Extravasation Allergies Allergy/AdvReac Type Severity Reaction Status Date / Time No Known Allergies Allergy Verified 04/17/18 12:44 Home Medications Medication Instructions Recorded Confirmed Type tamsulosin 0.4 mg PO DAILY 04/17/18 05/11/18 History valsartan-hydrochlorothiazide 1 tab PO DAILY 04/17/18 05/11/18 History Advance Directives Documented care wishes: Family believes the patient completed written advanced directive and will bring a copy of the documents when they are found. Family/friends goals: Aggressive up to the point of cardiopulmonary resuscitation Ethical and Legal Issues: Family believes written advanced directives were completed. Per [place] statutes , in the absence of written advanced directives healthcare proxy decision making would fall to the patient's . Family is making decision's together at this time. Physical Exam Vital Signs: Vital Signs - 24 hr 05/11/18 15:56 05/11/18 16:00 05/11/18 16:14 Temperature Pulse Rate 97 H 103 H 98 H Respiratory Rate 18 18 Blood Pressure 138/60 130/56 L Pulse Oximetry 91 L 94 L 05/11/18 16:16 05/11/18 16:18 05/11/18 17:00 Temperature Pulse Rate 103 H Respiratory Rate 20 Blood Pressure 146/105 H Pulse Oximetry 91 L 91 L 98 05/11/18 19:24 05/11/18 20:00 05/12/18 00:00 Temperature 97.6 F Pulse Rate 100 H 95 H 96 H Respiratory Rate 18 18 14 Blood Pressure 93/50 L 103/57 L 106/63 Pulse Oximetry 96 97 05/12/18 00:01 05/12/18 00:02 05/12/18 00:23 Temperature 98.3 F Pulse Rate 122 H 109 H Respiratory Rate 23 Blood Pressure 152/77 H 137/70 Pulse Oximetry 98 05/12/18 00:40 05/12/18 01:00 05/12/18 01:09 Temperature Pulse Rate 105 H 97 H 95 H Respiratory Rate 29 H 16 15 Blood Pressure 114/55 L 103/59 L Pulse Oximetry 98 97 95 05/12/18 01:15 05/12/18 01:30 05/12/18 01:45 Temperature Pulse Rate 96 H 92 H 98 H Respiratory Rate 15 14 18 Blood Pressure 106/63 101/65 95/65 L Pulse Oximetry 96 96 97 05/12/18 02:00 05/12/18 02:15 05/12/18 02:30 Temperature Pulse Rate 96 H 98 H 98 H Respiratory Rate 16 17 Blood Pressure 125/58 L 117/58 L 111/64 Pulse Oximetry 96 97 97 05/12/18 02:45 05/12/18 03:00 05/12/18 03:15 Temperature Pulse Rate 98 H 101 H 99 H Respiratory Rate 26 H 23 Blood Pressure 116/64 128/63 134/73 Pulse Oximetry 97 97 98 05/12/18 03:30 05/12/18 03:45 05/12/18 03:59 Temperature Pulse Rate 97 H 99 H 98 H Respiratory Rate 16 17 17 Blood Pressure 129/78 109/65 Pulse Oximetry 96 96 97 05/12/18 04:00 05/12/18 04:15 05/12/18 04:30 Temperature 98.4 F Pulse Rate 87 92 H 97 H Respiratory Rate 17 17 40 H Blood Pressure 122/77 119/71 127/72 Pulse Oximetry 98 96 98 05/12/18 04:45 05/12/18 05:00 05/12/18 05:15 Temperature Pulse Rate 91 H 87 86 Respiratory Rate 33 H 25 H 14 Blood Pressure 122/75 135/76 144/73 H Pulse Oximetry 97 98 98 05/12/18 05:30 05/12/18 05:45 05/12/18 06:00 Temperature Pulse Rate 87 107 H 89 Respiratory Rate 17 39 H 28 H Blood Pressure 156/69 H 138/88 137/89 Pulse Oximetry 99 98 98 05/12/18 06:15 05/12/18 06:30 05/12/18 06:45 Temperature Pulse Rate 97 H 97 H 94 H Respiratory Rate 36 H 34 H 38 H Blood Pressure 164/82 H 159/77 H 149/79 H Pulse Oximetry 98 98 98 05/12/18 07:00 05/12/18 07:15 05/12/18 07:30 Temperature Pulse Rate 94 H 96 H 97 H Respiratory Rate 27 H 37 H 35 H Blood Pressure 147/77 H 142/75 H 183/83 H Pulse Oximetry 97 98 97 05/12/18 07:31 05/12/18 07:45 05/12/18 07:50 Temperature Pulse Rate 104 H 108 H 99 H Respiratory Rate 40 H 37 H 30 H Blood Pressure 158/73 H 184/97 H 144/74 H Pulse Oximetry 98 98 98 05/12/18 08:00 05/12/18 08:08 05/12/18 08:15 Temperature Pulse Rate 90 98 H Respiratory Rate 27 H 29 H Blood Pressure 142/64 H 142/77 H Pulse Oximetry 96 100 97 05/12/18 08:30 05/12/18 08:45 05/12/18 09:00 Temperature Pulse Rate 94 H 98 H 100 H Respiratory Rate 16 21 Blood Pressure 151/72 H 149/72 H Pulse Oximetry 97 98 I&O: Intake & Output 05/10/18 05/11/18 05/12/18 05/13/18 06:59 06:59 06:59 06:59 Intake Total 1780 / 1780 1000 / 1000 Output Total 675 / 675 Balance 1105 / 1105 1000 / 1000 Weight 85.2 kg Physical Exam: CONSTITUTIONAL/GENERAL: This is an adequately nourished patient, in no apparent distress. TUBES/LINES/DRAINS: PIV, condom cath SKIN: No jaundice, rashes, or lesions. Ecchymoses on upper extremities. No wounds seen anteriorly. Skin temperature appropriate. Not diaphoretic. HEAD: Atraumatic. Normocephalic. EYES: Pupils equal and round and reactive. Extraocular motions intact. No scleral icterus. No injection or drainage. Fundi not examined. ENT: Hearing grossly normal. Nose without bleeding or purulent drainage. Throat without visible erythema, exudates, masses, or lesions. NECK: Trachea midline. Supple, nontender. No palpable thyroid enlargement or nodularity. CARDIOVASCULAR: Regular rate and rhythm without murmurs, gallops, or rubs. No JVD. Peripheral pulses symmetric. RESPIRATORY/CHEST: Symmetric, unlabored respirations. Clear to auscultation. Breath sounds diminished bilaterally. No wheezes, rales, or rhonchi. GASTROINTESTINAL: Abdomen soft; lower abdomen slightly tender to palpation. No hepato-splenomegaly, or palpable masses. No guarding. Bowel sounds present. GENITOURINARY: Without palpable bladder distension. Condom catheter in place. MUSCULOSKELETAL: Extremities without clubbing, cyanosis, or edema. No joint tenderness or effusion noted. No calf tenderness. No mottling or clubbing. LYMPHATICS: No palpable cervical or supraclavicular adenopathy. NEUROLOGICAL: Awake and alert. Follows commands. Responds to questions with 1-2 word answers. Right-sided deficits noted with dysarthria. PSYCHIATRIC: No obvious anxiety/depression. No apparent hallucinations or other psychotic thought process. Diagnostic Tests Laboratory: Laboratory Results - last 72 hr 05/11/18 05/11/18 05/11/18 15:11 15:11 15:11 WBC 15.4 H RBC 3.35 L Hgb 10.1 L POC Hgb (Calc) 10.2 L Hct 28.8 L POC Hct 30.0 L MCV 86.1 MCH 30.1 MCHC 35.0 RDW 14.0 Plt Count 287 MPV 7.5 Prelim Diff (Auto) Slide review pending Neut % (Auto) 77.6 H Lymph % (Auto) 13.0 Mckean % (Auto) 8.1 H Eos % (Auto) 1.0 Baso % (Auto) 0.3 Neut # (Auto) 12.0 H Lymph # (Auto) 2.0 Mckean # (Auto) 1.3 H Eos # (Auto) 0.1 Baso # (Auto) 0.1 WBC Differential . Diff Scan Auto diff confirmed Seg Neuts % (Manual) Band Neuts % (Manual) Lymphocytes % (Manual) Monocytes % (Manual) Basophils % (Manual) Myelocytes % (Man) Abs Neuts (Manual) Differential Comment . Platelet Estimate Normal Platelet Morphology Normal Helmet Cells PT 10.9 INR 1.1 APTT 27.9 Fibrinogen 412 H POC Sodium 129 L Sodium POC Potassium 4.1 Potassium POC Chloride 92 L Chloride Carbon Dioxide Anion Gap POC BUN 20 BUN Creatinine POC Creatinine 0.7 Estimated GFR POC Glucose 115 H Random Glucose Calcium Total Bilirubin AST ALT Alkaline Phosphatase Total Creatine Kinase 88 Troponin I Less than 0.02 L Total Protein Albumin Urine Color Urine Clarity Urine pH Ur Specific Bird In Hand Urine Protein Urine Glucose (UA) Urine Ketones Urine Occult Blood Urine Nitrate Urine Bilirubin Urine Urobilinogen Ur Leukocyte Esterase Urine WBC Urine Mucus Micro UA Comment Ur Microscopic Review Urine Culture Comments Nasal Screen MRSA (PCR) Urine Opiates Screen Ur Barbiturates Screen Ur Amphetamines Screen U Benzodiazepines Scrn Urine Cocaine Screen U Cannabinoids Screen Blood Type Antibody Screen 05/11/18 05/11/18 05/11/18 19:30 19:30 20:20 WBC RBC Hgb POC Hgb (Calc) Hct POC Hct MCV MCH MCHC RDW Plt Count MPV Prelim Diff (Auto) Neut % (Auto) Lymph % (Auto) Mckean % (Auto) Eos % (Auto) Baso % (Auto) Neut # (Auto) Lymph # (Auto) Mckean # (Auto) Eos # (Auto) Baso # (Auto) WBC Differential Diff Scan Seg Neuts % (Manual) Band Neuts % (Manual) Lymphocytes % (Manual) Monocytes % (Manual) Basophils % (Manual) Myelocytes % (Man) Abs Neuts (Manual) Differential Comment Platelet Estimate Platelet Morphology Helmet Cells PT INR APTT Fibrinogen POC Sodium Sodium POC Potassium Potassium POC Chloride Chloride Carbon Dioxide Anion Gap POC BUN BUN Creatinine POC Creatinine Estimated GFR POC Glucose Random Glucose Calcium Total Bilirubin AST ALT Alkaline Phosphatase Total Creatine Kinase Troponin I Total Protein Albumin Urine Color Straw Urine Clarity Clear Urine pH 6.0 Ur Specific Bird In [place] 1.055 H Urine Protein Negative Urine Glucose (UA) Negative Urine Ketones Trace H Urine Occult Blood Negative Urine Nitrate Negative Urine Bilirubin Negative Urine Urobilinogen Less than 2 Ur Leukocyte Esterase Negative Urine WBC Less than 1 Urine Mucus Few H Micro UA Comment Cath-culture not ind Ur Microscopic Review Not Reportable Urine Culture Comments Cath-cult not ind Nasal Screen MRSA (PCR) Urine Opiates Screen Neg Ur Barbiturates Screen Neg Ur Amphetamines Screen Neg U Benzodiazepines Scrn Neg Urine Cocaine Screen Neg U Cannabinoids Screen Neg Blood Type O Negative Antibody Screen Negative 05/11/18 05/11/18 05/11/18 20:56 21:04 21:50 WBC RBC Hgb POC Hgb (Calc) Hct POC Hct MCV MCH MCHC RDW Plt Count MPV Prelim Diff (Auto) Neut % (Auto) Lymph % (Auto) Mckean % (Auto) Eos % (Auto) Baso % (Auto) Neut # (Auto) Lymph # (Auto) Mckean # (Auto) Eos # (Auto) Baso # (Auto) WBC Differential Diff Scan Seg Neuts % (Manual) Band Neuts % (Manual) Lymphocytes % (Manual) Monocytes % (Manual) Basophils % (Manual) Myelocytes % (Man) Abs Neuts (Manual) Differential Comment Platelet Estimate Platelet Morphology Helmet Cells PT INR APTT Fibrinogen POC Sodium Sodium POC Potassium Potassium POC Chloride Chloride Carbon Dioxide Anion Gap POC BUN BUN Creatinine POC Creatinine Estimated GFR POC Glucose 59 L 120 H 125 H Random Glucose Calcium Total Bilirubin AST ALT Alkaline Phosphatase Total Creatine Kinase Troponin I Total Protein Albumin Urine Color Urine Clarity Urine pH Ur Specific [place] Urine Protein Urine Glucose (UA) Urine Ketones Urine Occult Blood Urine Nitrate Urine Bilirubin Urine Urobilinogen Ur Leukocyte Esterase Urine WBC Urine Mucus Micro UA Comment Ur Microscopic Review Urine Culture Comments Nasal Screen MRSA (PCR) Urine Opiates Screen Ur Barbiturates Screen Ur Amphetamines Screen U Benzodiazepines Scrn Urine Cocaine Screen U Cannabinoids Screen Blood Type Antibody Screen 05/12/18 05/12/18 05/12/18 00:15 00:15 00:15 WBC 12.6 H RBC 3.04 L Hgb 9.5 L POC Hgb (Calc) Hct 26.1 L POC Hct MCV 85.8 MCH 31.4 MCHC 36.6 H RDW 14.3 Plt Count 238 MPV 7.3 Prelim Diff (Auto) Slide review pending Neut % (Auto) 81.9 H Lymph % (Auto) 8.7 L Mckean % (Auto) 7.8 Eos % (Auto) 1.0 Baso % (Auto) 0.6 Neut # (Auto) 10.3 H Lymph # (Auto) 1.1 Mckean # (Auto) 1.0 H Eos # (Auto) 0.1 Baso # (Auto) 0.1 WBC Differential Manual diff final Diff Scan Seg Neuts % (Manual) 81 H Band Neuts % (Manual) 1 Lymphocytes % (Manual) 9 Monocytes % (Manual) 7 Basophils % (Manual) 1 Myelocytes % (Man) 1 H Abs Neuts (Manual) 10.5 H Differential Comment . Platelet Estimate Normal Platelet Morphology Normal Helmet Cells Occ H PT 11.0 INR 1.1 APTT 57.6 H D Fibrinogen 380 H POC Sodium Sodium 133 L POC Potassium Potassium 3.7 POC Chloride Chloride 100 Carbon Dioxide 25.2 Anion Gap 8 POC BUN BUN 17 Creatinine 0.68 POC Creatinine Estimated GFR Greater than 89 POC Glucose Random Glucose 116 H Calcium 7.5 L Total Bilirubin 0.4 AST 18 ALT 28 Alkaline Phosphatase 66 Total Creatine Kinase 90 Troponin I Less than 0.02 L Total Protein 6.2 L Albumin 3.2 L Urine Color Urine Clarity Urine pH Ur Specific Bird In [place] Urine Protein Urine Glucose (UA) Urine Ketones Urine Occult Blood Urine Nitrate Urine Bilirubin Urine Urobilinogen Ur Leukocyte Esterase Urine WBC Urine Mucus Micro UA Comment Ur Microscopic Review Urine Culture Comments Nasal Screen MRSA (PCR) Urine Opiates Screen Ur Barbiturates Screen Ur Amphetamines Screen U Benzodiazepines Scrn Urine Cocaine Screen U Cannabinoids Screen Blood Type Antibody Screen 05/12/18 05/12/18 05/12/18 00:36 06:22 06:22 WBC RBC Hgb POC Hgb (Calc) Hct POC Hct MCV MCH MCHC RDW Plt Count MPV Prelim Diff (Auto) Neut % (Auto) Lymph % (Auto) Mckean % (Auto) Eos % (Auto) Baso % (Auto) Neut # (Auto) Lymph # (Auto) Mckean # (Auto) Eos # (Auto) Baso # (Auto) WBC Differential Diff Scan Seg Neuts % (Manual) Band Neuts % (Manual) Lymphocytes % (Manual) Monocytes % (Manual) Basophils % (Manual) Myelocytes % (Man) Abs Neuts (Manual) Differential Comment Platelet Estimate Platelet Morphology Helmet Cells PT INR APTT 28.2 D Fibrinogen POC Sodium Sodium 133 L POC Potassium Potassium 3.9 POC Chloride Chloride 102 Carbon Dioxide 23.3 Anion Gap 8 POC BUN BUN 16 Creatinine 0.69 POC Creatinine Estimated GFR Greater than 89 POC Glucose Random Glucose 106 Calcium 8.1 L Total Bilirubin AST ALT Alkaline Phosphatase Total Creatine Kinase 92 Troponin I Total Protein Albumin Urine Color Urine Clarity Urine pH Ur Specific Bird In [place] Urine Protein Urine Glucose (UA) Urine Ketones Urine Occult Blood Urine Nitrate Urine Bilirubin Urine Urobilinogen Ur Leukocyte Esterase Urine WBC Urine Mucus Micro UA Comment Ur Microscopic Review Urine Culture Comments Nasal Screen MRSA (PCR) Not detected Urine Opiates Screen Ur Barbiturates Screen Ur Amphetamines Screen U Benzodiazepines Scrn Urine Cocaine Screen U Cannabinoids Screen Blood Type Antibody Screen 05/12/18 09:08 WBC RBC Hgb POC Hgb (Calc) Hct POC Hct MCV MCH MCHC RDW Plt Count MPV Prelim Diff (Auto) Neut % (Auto) Lymph % (Auto) Mckean % (Auto) Eos % (Auto) Baso % (Auto) Neut # (Auto) Lymph # (Auto) Mckean # (Auto) Eos # (Auto) Baso # (Auto) WBC Differential Diff Scan Seg Neuts % (Manual) Band Neuts % (Manual) Lymphocytes % (Manual) Monocytes % (Manual) Basophils % (Manual) Myelocytes % (Man) Abs Neuts (Manual) Differential Comment Platelet Estimate Platelet Morphology Helmet Cells PT INR APTT Fibrinogen POC Sodium Sodium POC Potassium Potassium POC Chloride Chloride Carbon Dioxide Anion Gap POC BUN BUN Creatinine POC Creatinine Estimated GFR POC Glucose 152 H Random Glucose Calcium Total Bilirubin AST ALT Alkaline Phosphatase Total Creatine Kinase Troponin I Total Protein Albumin Urine Color Urine Clarity Urine pH Ur Specific [place] In [place] Urine Protein Urine Glucose (UA) Urine Ketones Urine Occult Blood Urine Nitrate Urine Bilirubin Urine Urobilinogen Ur Leukocyte Esterase Urine WBC Urine Mucus Micro UA Comment Ur Microscopic Review Urine Culture Comments Nasal Screen MRSA (PCR) Urine Opiates Screen Ur Barbiturates Screen Ur Amphetamines Screen U Benzodiazepines Scrn Urine Cocaine Screen U Cannabinoids Screen Blood Type Antibody Screen Result Diagrams: 05/12/18 00:15 05/12/18 06:22 Imaging: Head CTA 05/11/18 15:17 CONCLUSION: 1. Left internal carotid occlusion, similar to what was seen on 04/17/2018. Neck CTA 05/11/18 15:17 CONCLUSION: Chronic occlusion of the left internal carotid artery. Previous right endarterectomy without evidence of recurrent stenosis. 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 Head CT 05/12/18 00:16 CONCLUSION: 1. Chronic small vessel ischemic change. No acute intracranial abnormality. Report was called by [Dr. Solorzano to Dr. Serrato and to Dr. Tilley at 0033 hours. There is a delay in interpretation of this study due to an issue with the [employer] system. ] Chest X-Ray 05/12/18 02:51 CONCLUSION: Central line without pneumothorax. Procedures: 05/12/2018: Left IJ central line placement Patient/Family Conference Present at Family Conference: Met with patient's son (Noah) in the family conference room, a second son ( Néstor) participated via conference call. Also spoke with the patient's and son (Noah) at patient's bedside. Family Conference Location: Bedside, Consult Room, Telephone Issues Discussed: * Palliative care role, purpose, approach * Additional medical, psychosocial, and spiritual history * Patients general health, functional status, and cognitive changes in the months leading up to the current hospitalization * Patient/family understanding of the current medical problems * Patient/family understanding of prognosis * Patients goals of care as best understood from advance directives and/or conversations and/or values * Current medical treatment options and benefits/burdens of those options * Likely scenarios comparing ongoing aggressive care with a transition to comfort measures only * Questions answered to the best of my ability * Palliative care contact information provided Assessment and Plan - Disease Oriented Problem List (1) Hypertension (2) Internal carotid artery stenosis (3) Acute CVA (cerebrovascular accident) (4) BPH (benign prostatic hyperplasia) - Symptom Scale (1) Pain 0-10 Scale: Unable to quantify Pertinent Non-Medical Issues: Psychosocial: Patient is originally from [place]. He served in the [employer] during the [place] [employer]. He has been to his (Haydee) for approximately 61 years. 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 After retiring, they moved to [place] and the patient worked part-time with his son at [employer]. Together they have 2 sons (Noah and Néstor) who both live locally. Patient and his were living their with son, Roland , until the patient's initial stroke in April, Spiritual: Mosque Legal: Family believes the patient may have completed written advanced directives and will bring copies of these documents if they are found. Per [place] statutes, in the absence of written advanced directives healthcare proxy decision making falls to the patient's . Family is making decisions together at this time. Ethical issues impacting care: No known ethical issues impacting care at this time. Important Contacts: Haydee Barber, : [phone] Noah Barber, son: [phone] Néstor Barber, son: [phone] Prognosis: Patient is an 83-year-old male status post CVA x2. Patient's initial stroke was approximately 3 weeks ago in April, with subsequent right-sided deficits , dysarthria and intermittent confusion. He was discharged to a SNF for rehab but returned to the ED on 05/11/2018 with new symptoms. Patient is at risk for further decline secondary his advanced age and recurrent CVAs with residual deficits. Code Status: No Code DNR Plan: * NO CODE/DNR * Decision-making: Family believes the patient may have completed written advanced directives and will bring copies of these documents if they are found. Per [place] statutes, in the absence of written advanced directives healthcare proxy decision making falls to the patient's . Family is making decisions together at this time. * Discussed with Dr. Kaur and RNHenny. * Spoke with the patient's son in the family conference room and again at the patient's bedside with present. Medical update provided, recent decline reviewed. * Patient's and 2 sons state the patient would not want cardiopulmonary resuscitation in the event that his condition deteriorated. Patient agrees with his family stating he would not want CPR. However, his insight/judgement related to his medical conditions is limited; I would not recommend allowing the patient to make medical decisions on his own at this time. CODE STATUS changed to NO CODE/DNR. Goals aggressive up to the point of cardiopulmonary resuscitation * Symptom management-pain: Patient complaining of suprapubic pain with no palpable bladder distention. History is significant for BPH. Condom cath draining clear yellow urine. Will administer Tamsulosin that was on hold pending swallow evaluation. Continue to monitor. * Symptom management-debility: Patient was independent, healthy and active prior to his initial stroke in April,. He was discharged to an SNF with residual right-sided weakness, dysarthria and intermittent confusion. Functional status was slowly improving with rehab until 05/11/2018 when the patient developed new/additional deficits. If goals remain aggressive, patient will need continued rehabilitation at SNF when stable. * Palliative care contact information provided to the patient's family * Palliative care will continue to follow this patient throughout his hospitalization to build rapport, assist with symptom managment and goal clarification. Time Spent Time Periods: 11:20am -12pm; 1:15pm -2:05pm, 2:35-3:06 Total Floor Time (mins): 121 (Review of notes, collaboration with medical team, phone calls to coordinate family meeting) Face to Face Time (mins): 45 (Family meeting, physical exam) >50% Time in Counseling or Coordination of Care: Yes Appreciation Thank you for the opportunity to participate in the care of Christopher Barber. Attestation Attestation: To help prompt me to consider important information that might be impacting today's encounter and assessment, information from prior notes written by myself or my colleagues may have been "brought forward" into today's note. My signature on this note, however, is an attestation that I personally performed the exam, history, and/or decision-making noted today, and, unless otherwise indicated, the interactions with patient, family, and staff as well as the review of records all occurred today. I also attest that the listed assessment and stated plan reflect my best clinical judgment today based on the combination of historical information, prior notes, and today's exam/ interactions. When time spent is documented, it refers only to time spent today by the signer, or if indicated, combined time spent today by collaborating physician/nurse practitioner.
[2018-05-12 13:54] LABS: Hemoglobin A1c 5.8 % (4.3-6.0)
--- NOTE | 2018-05-12 17:36 | ECG ---
Date Performed: 05/11/2018 Time Performed: 15:45:24 PTAGE: 83 years EKG: Sinus rhythm NORMAL ECG PREVIOUS TRACING :04/17/2018 @12.31 Since the previous tracing, no significant change noted DOCTOR: Mari Truong Interpretating Date/Time 05/12/2018 17:34:25
--- NOTE | 2018-05-12 20:22 | MG ---
cc: Brayan Dang MD, PhD TEST NUMBER: [id number] TECHNIQUE: A 17-channel EEG. DESCRIPTION: The background rhythm reveals an alpha rhythm with a frequency of 8-9 Hz. Amplitude is about 20-30 microvolts. There is some slowing over the left hemisphere compared with the right. No epileptiform discharges are present. Photic results in a modest driving response. INTERPRETATION: Abnormal study. There is focal slowing of the left hemisphere, suggesting a possible structural etiology. Brayan Dang MD, PhD ALEKSANDER/sameera , 07:56 PM , 08:00 PM
[2018-05-13] MEDS: Sod Chloride 0.9% Inj 1,000 ML IV.CONT SCH ×4 (04:26→19:57)
[2018-05-13 05:07] LABS: Baso % (Auto) 0.3 % (0.0-2.0); Eos # (Auto) 0.2 th/mm3 (0.0-0.4); Eos % (Auto) 1.5 % (0.0-4.0); Hematocrit 22.9 % (39.0-51.0); Lymph # (Auto) 1.7 th/mm3 (1.0-4.8); Lymph % (Auto) 13.7 % (9.0-44.0); Mean Corpuscular HGB Conc 35.1 % (32.0-36.0); Mean Corpuscular Hemoglobin 30.3 pg (27.0-34.0); Mean Corpuscular Volume 86.3 fL (80.0-100.0); Mean Platelet Volume 7.2 fL (7.0-11.0); Mono # (Auto) 1.1 th/mm3 (0.0-0.9); Mono % (Auto) 8.3 % (0.0-8.0); Neut # (Auto) 9.7 th/mm3 (1.8-7.7); Neut % (Auto) 76.2 % (16.0-70.0); Platelet Count 247 th/mm3 (150-450); Red Blood Count 2.65 mil/mm3 (4.50-5.90); Red Cell Distribution Width 14.6 % (11.6-17.2); White Blood Count 12.7 th/mm3 (4.0-11.0)
[2018-05-13 05:16] LABS: Albumin 2.9 g/dL (3.4-5.0); Anion Gap 5 meq/L (5-15); Aspartate Aminotransferase 17 U/L (15-37); Blood Urea Nitrogen 7 mg/dL (7-18); Calcium 7.9 mg/dL (8.5-10.1); Carbon Dioxide 25.1 meq/L (21.0-32.0); Chloride 106 meq/L (98-107); Glomerular Filtration Rate Greater Than 89 mL/min (>89); Glucose,Random 118 mg/dL (74-106); Magnesium 2.1 mg/dL (1.5-2.5); Potassium 3.7 meq/L (3.5-5.1); Sodium 136 meq/L (136-145)
[2018-05-13 05:17] LABS: Alanine Aminotransferase 26 U/L (12-78); Phosphorus 2.4 mg/dL (2.5-4.9)
[2018-05-13 05:20] LABS: Alkaline Phosphatase 53 U/L (45-117); Total Protein 5.7 g/dL (6.4-8.2)
[2018-05-13] MEDS: Insulin NovoLOG Aspart Correctional Sugar Inj SQ SCH ×3 (05:52→18:51)
[2018-05-13 07:54] LABS: Eosinophils 1 % (0-4); Lymphocytes 14 % (9-44); Metamyelocytes 1 % (0-1); Monocytes 3 % (0-8); Myelocytes 2 % (0-0); Platelet Estimate Normal (Normal); Platelet Morphology Normal (Normal)
[2018-05-13] MEDS: Phenylephrine Inj 160 MG in Sodium Chlor 0.9% Inj 484 ML IV.CONT PRN (09:00)
--- NOTE | 2018-05-13 09:38 | P.PNNEU ---
Subjective Subjective Comments: sr Active Medications: Active Medications Aspirin (Aspirin Chew) 81 mg PO DAILY [facility] Last Admin: 05/12/18 10:10 Dose: Not Given Atorvastatin Calcium (Lipitor) 80 mg PO DAILY [facility] Last Admin: 05/13/18 09:24 Dose: 80 mg Dextrose (D50w Vial) 50 ml IV.PUSH UNSCH PRN PRN Reason: PER HYPOGLYCEMIA PROTOCOL Glucagon (Glucagon Inj) 1 mg OTHER UNSCH PRN PRN Reason: for Hypoglycemia Protocol Sodium Chloride (Ns Inj) 1,000 mls @ 100 mls/hr IV.CONT .Q10H [facility] Last Admin: 05/13/18 04:26 Dose: 165 mls/hr Heparin Sodium/Dextrose (Heparin/D5w 25,000 U/250 Ml) 25,000 unit in 250 mls @ 0 mls/hr IV.CONT TITRATE PRN; Protocol PRN Reason: Per Protocol Last Titration: 05/13/18 05:48 Dose: 0 units/hr, 0 mls/hr Phenylephrine HCl 160 mg/ (Sodium Chloride) 500 mls @ 7.5 mls/hr IV.CONT TITRATE PRN; Protocol PRN Reason: See protol Last Titration: 05/13/18 02:35 Dose: 60 mcg/min, 11.25 mls/hr Magnesium Sulfate 4 gm/ Sodium (Chloride) 100 mls @ 50 mls/hr IV.SIG UNSCH PRN PRN Reason: For Magnesium 0.9 - 1.1 mg/dL Magnesium Sulfate 2 gm/ Sodium (Chloride) 100 mls @ 50 mls/hr IV.SIG UNSCH PRN PRN Reason: For Magnesium 1.2 - 1.6 mg/dL Potassium Chloride (Kcl 40 Meq Premix Inj) 40 meq in 100 mls @ 25 mls/hr IV.SIG Q2H PRN PRN Reason: For Potassium 2.8 - 3.2 mEq/L Potassium Chloride (Kcl 20 Meq Premix Inj) 20 meq in 100 mls @ 50 mls/hr IV.SIG Q2H PRN PRN Reason: For Potassium 3.3 - 3.5 mEq/L Potassium Chloride (Kcl 40 Meq Premix Inj) 40 meq in 100 mls @ 25 mls/hr IV.SIG UNSCH PRN PRN Reason: For Potassium 3.3 - 3.5 mEq/L Potassium Chloride (Kcl 20 Meq Premix Inj) 20 meq in 100 mls @ 50 mls/hr IV.SIG Q2H PRN PRN Reason: For Potassium 2.8 - 3.2 mEq/L Potassium Phosphate 30 mmol/ (Sodium Chloride) 260 mls @ 42 mls/hr IV.SIG UNSCH PRN PRN Reason: SEE LABEL COMMENTS Sodium Phosphate 30 mmol/ (Sodium Chloride) 260 mls @ 42 mls/hr IV.SIG UNSCH PRN PRN Reason: For Phosphorus < 2.5 mg/dL Insulin Aspart (Novolog Insulin Correctional Sugar Inj) 0 unit SQ Q6HR [facility]; Protocol Last Admin: 05/13/18 05:52 Dose: Not Given Magnesium Oxide (Mag-Ox) 800 mg PO UNSCH PRN PRN Reason: For Magnesium 1.2 - 1.6 mg/dL Potassium Bicarb/Potassium Chloride (K-Lyte Cl Eff) 50 meq PO UNSCH PRN PRN Reason: For Potassium 3.3 - 3.5 mEq/L Potassium Phosphate (K-Phos Original) 2,000 mg PO Q4H PRN PRN Reason: Phosphorus Less Than 2.5 mg/dL Potassium Phosphate (K-Phos Original) 2,000 mg PO UNSCH PRN PRN Reason: SEE LABEL COMMENTS Sodium Chloride (Ns Flush) 2 ml IV.FLUSH BID [facility] Last Admin: 05/13/18 09:25 Dose: 2 ml Sodium Chloride (Ns Flush) 2 ml IV.FLUSH PRN PRN PRN Reason: FLUSH AFTER USING IV ACCESS Sodium Chloride (Ns Flush) 0 ml IV.FLUSH DAILY [facility] Last Admin: 05/13/18 09:25 Dose: 10 ml Tamsulosin HCl (Flomax) 0.4 mg PO DAILY [facility] Last Admin: 05/13/18 09:25 Dose: 0.4 mg Terbutaline Sulfate (Brethine Inj) 1 mg SQ UNSCH PRN PRN Reason: For Extravasation Allergies/Adverse Reactions: Allergies Allergy/AdvReac Type Severity Reaction Status Date / Time No Known Allergies Allergy Verified 04/17/18 12:44 Physical Exam Vital signs: Vital Signs 05/12/18 09:45 05/12/18 10:00 05/12/18 10:15 Temperature Pulse Rate 99 H 93 H 97 H Respiratory Rate 36 H 24 36 H Blood Pressure 167/74 H 142/64 H 153/72 H Pulse Oximetry 99 97 98 05/12/18 10:30 05/12/18 10:45 05/12/18 11:00 Temperature Pulse Rate 102 H 106 H Respiratory Rate 36 H 42 H 53 H Blood Pressure 167/81 H 169/91 H 162/74 H Pulse Oximetry 99 98 99 05/12/18 11:15 05/12/18 11:22 05/12/18 11:30 Temperature Pulse Rate 122 H 90 97 H Respiratory Rate 49 H 42 H Blood Pressure 153/75 H 142/64 H 139/69 Pulse Oximetry 99 97 05/12/18 11:45 05/12/18 12:00 05/12/18 12:15 Temperature Pulse Rate 93 H 98 H 130 H Respiratory Rate 33 H 29 H 40 H Blood Pressure 123/75 155/68 H 203/88 H Pulse Oximetry 96 96 98 05/12/18 12:17 05/12/18 12:19 05/12/18 12:30 Temperature Pulse Rate 115 H 106 H 121 H Respiratory Rate 30 H 31 H 39 H Blood Pressure 178/80 H 166/65 H 157/85 H Pulse Oximetry 98 97 97 05/12/18 12:45 05/12/18 13:00 05/12/18 13:08 Temperature Pulse Rate 115 H 104 H 107 H Respiratory Rate 57 H 36 H 37 H Blood Pressure 154/89 H 181/80 H 143/67 H Pulse Oximetry 95 98 97 05/12/18 13:15 05/12/18 13:30 05/12/18 13:45 Temperature Pulse Rate 100 H 113 H 95 H Respiratory Rate 47 H 38 H 19 Blood Pressure 144/76 H 145/75 H 153/80 H Pulse Oximetry 97 96 95 05/12/18 14:00 05/12/18 14:15 05/12/18 14:22 Temperature Pulse Rate 113 H 104 H 104 H Respiratory Rate 41 H 33 H 41 H Blood Pressure 151/85 H 152/100 H 154/96 H Pulse Oximetry 98 98 96 05/12/18 14:30 05/12/18 14:45 05/12/18 15:00 Temperature Pulse Rate 121 H 100 H 126 H Respiratory Rate 38 H 28 H 35 H Blood Pressure 173/87 H 129/74 162/89 H Pulse Oximetry 97 98 97 05/12/18 15:15 05/12/18 15:30 05/12/18 15:45 Temperature Pulse Rate 99 H 115 H 98 H Respiratory Rate 18 36 H 22 Blood Pressure 127/60 147/78 H 141/57 H Pulse Oximetry 95 100 97 05/12/18 16:00 05/12/18 20:00 05/13/18 00:00 Temperature 98.0 F 98.0 F Pulse Rate 111 H 104 H 88 Respiratory Rate 29 H 24 25 H Blood Pressure 167/99 H 134/71 115/59 L Pulse Oximetry 99 100 90 L 05/13/18 04:00 05/13/18 07:55 Temperature Pulse Rate 82 Respiratory Rate 21 Blood Pressure 148/71 H Pulse Oximetry 90 L 93 L Intake & Output 05/12/18 05/13/18 05/13/18 18:59 06:59 18:59 Intake Total 2720 / 2720 2350 / 2350 Output Total 250 / 250 1700 / 1700 Balance 2470 / 2470 650 / 650 Weight 76.4 kg Intake: IV 1999 2250 / 2250 Heparin/D5W 25,000 U/250 mL 25, 250 / 250 000 unit In 250 ml @ Per Protocol IV.CONT TITRATE PRN Rx #:[id number] NS Inj 1,000 ML @ 100 mls/hr IV 1999 .CONT .Q10H [facility] Rx#:[id number] Oral 720 / 720 100 / 100 Output: Urine 250 / 250 Urine Amount (Catheter) 1700 / 1700 Condom 1700 / 1700 Other: # Voids 5 2 # Incontinent Voids 3 # Urine Diapers 1 Date of Last Bowel Movement 05/12/18 05/12/18 # Bowel Movements 2 0 # Incontinent Bowel Movements 2 Narrative: aphasic moving all 4 ext but r finger ext will not hold up for me 5-/5 r ip 5/5 r tricep mild r droop awakens quickly - Urinary Catheter Management Condom Cath placed during this visit: no Objective Laboratory Results - last 24 hr 05/12/18 05/12/18 05/12/18 06:12 10:41 11:33 WBC RBC Hgb Hct MCV MCH MCHC RDW Plt Count MPV Prelim Diff (Auto) Neut % (Auto) Lymph % (Auto) Phillips % (Auto) Eos % (Auto) Baso % (Auto) Neut # (Auto) Lymph # (Auto) Phillips # (Auto) Eos # (Auto) Baso # (Auto) WBC Differential Seg Neuts % (Manual) Band Neuts % (Manual) Lymphocytes % (Manual) Monocytes % (Manual) Eosinophils % (Manual) Metamyelocytes % (Man) Myelocytes % (Man) Abs Neuts (Manual) Differential Comment Platelet Estimate Platelet Morphology APTT 63.1 H D Sodium Potassium Chloride Carbon Dioxide Anion Gap BUN Creatinine Estimated GFR POC Glucose 147 H Random Glucose Hemoglobin A1c 5.8 Calcium Phosphorus Magnesium Total Bilirubin AST ALT Alkaline Phosphatase Total Protein Albumin Stl C.difficile DNA Amp St C. diff Tox Epid 027 05/12/18 05/12/18 05/13/18 13:05 23:38 04:36 WBC RBC Hgb Hct MCV MCH MCHC RDW Plt Count MPV Prelim Diff (Auto) Neut % (Auto) Lymph % (Auto) Phillips % (Auto) Eos % (Auto) Baso % (Auto) Neut # (Auto) Lymph # (Auto) Phillips # (Auto) Eos # (Auto) Baso # (Auto) WBC Differential Seg Neuts % (Manual) Band Neuts % (Manual) Lymphocytes % (Manual) Monocytes % (Manual) Eosinophils % (Manual) Metamyelocytes % (Man) Myelocytes % (Man) Abs Neuts (Manual) Differential Comment Platelet Estimate Platelet Morphology APTT Sodium 136 Potassium 3.7 Chloride 106 Carbon Dioxide 25.1 Anion Gap 5 BUN 7 Creatinine 0.68 Estimated GFR Greater than 89 POC Glucose 150 H Random Glucose 118 H Hemoglobin A1c Calcium 7.9 L Phosphorus 2.4 L Magnesium 2.1 Total Bilirubin 0.4 AST 17 ALT 26 Alkaline Phosphatase 53 Total Protein 5.7 L Albumin 2.9 L Stl C.difficile DNA Amp Negative St C. diff Tox Epid 027 Negative 05/13/18 05/13/18 05/13/18 04:36 04:36 05:17 WBC 12.7 H RBC 2.65 L Hgb 8.0 L Hct 22.9 L MCV 86.3 MCH 30.3 MCHC 35.1 RDW 14.6 Plt Count 247 MPV 7.2 Prelim Diff (Auto) Slide review pending Neut % (Auto) 76.2 H Lymph % (Auto) 13.7 Phillips % (Auto) 8.3 H Eos % (Auto) 1.5 Baso % (Auto) 0.3 Neut # (Auto) 9.7 H Lymph # (Auto) 1.7 Phillips # (Auto) 1.1 H Eos # (Auto) 0.2 Baso # (Auto) 0.0 WBC Differential Manual diff final Seg Neuts % (Manual) 77 H Band Neuts % (Manual) 2 Lymphocytes % (Manual) 14 Monocytes % (Manual) 3 Eosinophils % (Manual) 1 Metamyelocytes % (Man) 1 Myelocytes % (Man) 2 H Abs Neuts (Manual) 10.4 H Differential Comment . Platelet Estimate Normal Platelet Morphology Normal APTT 135.4 H* D 140.3 H* Sodium Potassium Chloride Carbon Dioxide Anion Gap BUN Creatinine Estimated GFR POC Glucose Random Glucose Hemoglobin A1c Calcium Phosphorus Magnesium Total Bilirubin AST ALT Alkaline Phosphatase Total Protein Albumin Stl C.difficile DNA Amp St C. diff Tox Epid 027 Microbiology 05/12/18 13:05 Stool Occult Blood (VIKAS) - Final Stool Hemoccult positive Review/Management - Review/Management Plan: 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 05/13/18 just a hint worse r side on hep bp 140-150 on estrella hct down to 22 i dw med team could add midodrine to get bp higher on own maybe 2.5 tid to start i await pharmacy to call me back on that other option florinef i dw med team they will start protonix and have gi see but if scoped needs to kep bp over 140/ i would like loop placed and i consulted cards and i would like to start on coumadin if possible from anemia point of view dr jaramillo to cover weekend
[2018-05-13] MEDS: Pantoprazole Inj 40 MG Vial IV.PUSH SCH ×2 (10:16→21:34)
[2018-05-13] MEDS ORDERED: Potassium Phosphate Inj 15 MMOL in Sodium Chlor 0.9% Inj 150 ML IV.SIG ONE (11:00)
--- NOTE | 2018-05-13 11:11 | P.PNCC ---
Subjective Subjective Remarks/Hospital Course: This is a 83-year-old male. Admission 05/11/2018 repeat of consultation 05/12/2018. 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 Patient had a right carotid intervention by Dr. Oakes 04/24/2018. Today, patient presented to [facility] with onset of right-sided weakness, dysarthria, word finding difficulties, and increased confusion. Today he has acute onset at about 10 AM of right-sided weakness that has improved slightly since time of onset. He was unable to lift his arm or leg against gravity this morning. According to the medical record, his son stated that he has been more confused and had more difficulty speaking since Wednesday, however he did not have weakness at that time. CT of the brain 05/11 revealed no acute changes. Patent right carotid endarterectomy. Occluded left carotid internal carotid artery. Patient was evaluated by the family medicine team due to worsening confusion and dysarthria and right sided deficits/weakness. A stat MRI of the brain was performed which revealed restricted diffusion in the periventricular and deep white matter of the left frontal, parietal and occipital lobes consistent with new, acute/subacute infarcts. The entire region of involvement is approximately 2.2 x 8.4 cm in greatest transaxial dimension. These findings are superimposed on chronic white matter ischemic changes in the same region that were acute at the time of the comparison MRI. Neurology was notified. They recommended vasopressors to raise the mean arterial pressure to increase cerebral perfusion. We got involved with a central line and start the patient on phenylephrine drip. His home medications of losartan currently being held. On hydrochlorothiazide. SUBJECTIVE: 05/13: Maybe a little bit worse neurological haji this a.m. with regards to confusion/dysarthria and right sided weakness. Currently off phenylephrine drip. Discussed with Dr. Serrato in pharmacy. Okay to start Midodrine with very little cerebral vascular constriction. Starting at 2.5 mg 3 times daily and titrate as appropriate. Consulted gastroneurology as patient will need long -term anticoagulation. Currently heparin drip with heme positive stools and slowly trending down hemoglobin. Objective Vital Signs / I&O: Vital Signs 05/12/18 11:15 05/12/18 11:22 05/12/18 11:30 Temperature Pulse Rate 122 H 90 97 H Respiratory Rate 49 H 42 H Blood Pressure 153/75 H 142/64 H 139/69 Pulse Oximetry 99 97 05/12/18 11:45 05/12/18 12:00 05/12/18 12:15 Temperature Pulse Rate 93 H 98 H 130 H Respiratory Rate 33 H 29 H 40 H Blood Pressure 123/75 155/68 H 203/88 H Pulse Oximetry 96 96 98 05/12/18 12:17 05/12/18 12:19 05/12/18 12:30 Temperature Pulse Rate 115 H 106 H 121 H Respiratory Rate 30 H 31 H 39 H Blood Pressure 178/80 H 166/65 H 157/85 H Pulse Oximetry 98 97 97 05/12/18 12:45 05/12/18 13:00 05/12/18 13:08 Temperature Pulse Rate 115 H 104 H 107 H Respiratory Rate 57 H 36 H 37 H Blood Pressure 154/89 H 181/80 H 143/67 H Pulse Oximetry 95 98 97 05/12/18 13:15 05/12/18 13:30 05/12/18 13:45 Temperature Pulse Rate 100 H 113 H 95 H Respiratory Rate 47 H 38 H 19 Blood Pressure 144/76 H 145/75 H 153/80 H Pulse Oximetry 97 96 95 05/12/18 14:00 05/12/18 14:15 05/12/18 14:22 Temperature Pulse Rate 113 H 104 H 104 H Respiratory Rate 41 H 33 H 41 H Blood Pressure 151/85 H 152/100 H 154/96 H Pulse Oximetry 98 98 96 05/12/18 14:30 05/12/18 14:45 05/12/18 15:00 Temperature Pulse Rate 121 H 100 H 126 H Respiratory Rate 38 H 28 H 35 H Blood Pressure 173/87 H 129/74 162/89 H Pulse Oximetry 97 98 97 05/12/18 15:15 05/12/18 15:30 05/12/18 15:45 Temperature Pulse Rate 99 H 115 H 98 H Respiratory Rate 18 36 H 22 Blood Pressure 127/60 147/78 H 141/57 H Pulse Oximetry 95 100 97 05/12/18 16:00 05/12/18 20:00 05/13/18 00:00 Temperature 98.0 F 98.0 F Pulse Rate 111 H 104 H 88 Respiratory Rate 29 H 24 25 H Blood Pressure 167/99 H 134/71 115/59 L Pulse Oximetry 99 100 90 L 05/13/18 04:00 05/13/18 07:55 Temperature Pulse Rate 82 Respiratory Rate 21 Blood Pressure 148/71 H Pulse Oximetry 90 L 93 L Intake & Output 05/12/18 05/13/18 05/13/18 18:59 06:59 18:59 Intake Total 2720 / 2720 2350 / 2350 1000 / 1000 Output Total 250 / 250 1700 / 1700 Balance 2470 / 2470 650 / 650 1000 / 1000 Weight 76.4 kg Intake: IV 1999 / 1999 2250 / 2250 1000 / 1000 Heparin/D5W 25,000 U/250 mL 25, 250 / 250 000 unit In 250 ml @ Per Protocol IV.CONT TITRATE PRN Rx #:[id number] NS Inj 1,000 ML @ 100 mls/hr IV 1999 / 1999 2000 / 1999 1000 / 1000 .CONT .Q10H DIONISIO Rx#:[id number] Oral 720 / 720 100 / 100 Output: Urine 250 / 250 Urine Amount (Catheter) 1700 / 1700 Condom 1700 / 1700 Other: # Voids 5 2 # Incontinent Voids 3 # Urine Diapers 1 Date of Last Bowel Movement 05/12/18 05/12/18 # Bowel Movements 2 0 # Incontinent Bowel Movements 2 Result Diagrams: 05/13/18 04:36 05/13/18 04:36 Other Results: Chest X-Ray 05/11/18 15:17 CONCLUSION: 1. Probable medial right lower lung zone atelectasis. Head CT 05/11/18 15:17 CONCLUSION: 1. No acute intracranial abnormality is identified. 2. Stable chronic findings include mild generalized atrophy and asymmetric periventricular white matter low-attenuation. These findings were relayed in person by the ophthalmic technologist to Dr. Muñoz on 05/11/2018 at approximately 3:39 PM. Head CTA 05/11/18 15:17 CONCLUSION: 1. Left internal carotid occlusion, similar to what was seen on 04/17/2018. . Neck CTA 05/11/18 15:17 CONCLUSION: Chronic occlusion of the left internal carotid artery. Previous right endarterectomy without evidence of recurrent stenosis. 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 Head CT 05/12/18 00:16 CONCLUSION: 1. Chronic small vessel ischemic change. No acute intracranial abnormality. Report was called by [Dr. Solorzano to Dr. Serrato and to Dr. Tilley at 0033 hours. There is a delay in interpretation of this study due to an issue with the [employer] system. ] Chest X-Ray 05/12/18 02:51 CONCLUSION: Central line without pneumothorax. Imaging: Chest X-Ray 05/11/18 15:17 CONCLUSION: 1. Probable medial right lower lung zone atelectasis. Head CT 05/11/18 15:17 CONCLUSION: 1. No acute intracranial abnormality is identified. 2. Stable chronic findings include mild generalized atrophy and asymmetric periventricular white matter low-attenuation. These findings were relayed in person by the ophthalmic technologist to Dr. Muñoz on 05/11/2018 at approximately 3:39 PM. Head CTA 05/11/18 15:17 CONCLUSION: 1. Left internal carotid occlusion, similar to what was seen on 04/17/2018. . Neck CTA 05/11/18 15:17 CONCLUSION: Chronic occlusion of the left internal carotid artery. Previous right endarterectomy without evidence of recurrent stenosis. 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 Head CT 05/12/18 00:16 CONCLUSION: 1. Chronic small vessel ischemic change. No acute intracranial abnormality. Report was called by [Dr. Solorzano to Dr. Serrato and to Dr. Tilley at 0033 hours. There is a delay in interpretation of this study due to an issue with the [employer] system. ] Chest X-Ray 05/12/18 02:51 CONCLUSION: Central line without pneumothorax. Objective Remarks: GENERAL: 83-year-old male currently resting in bed in no acute distress SKIN: Warm and dry. Ecchymoses bilateral upper extremities HEAD: Atraumatic. Normocephalic. EYES: Pupils equal and round about 3 mm bilaterally reactive. No scleral icterus. No injection or drainage. ENT: No nasal bleeding or discharge. Mucous membranes pink and moist. NECK: Trachea midline. No JVD. CARDIOVASCULAR: Regular rate and rhythm. S1, S2. No S4. RESPIRATORY:. Clear to auscultation. Breath sounds equal bilaterally. GASTROINTESTINAL: Abdomen soft, non-tender, nondistended. Positive bowel sounds are appreciated. MUSCULOSKELETAL: Extremities with trace bilateral lower extremity edema NEUROLOGICAL: Awake and alert. Slight right-sided facial droop. Right upper and lower extremity subjective weaker compared r to the left side. Sensation appears intact. Assessment and Plan - Assessment and Plan Plan: Neuro/Psych: Left frontal/parietal/occipital CVA MRI of brain 05/12 revealed restricted diffusion in the periventricular and deep white matter of the left frontal, parietal and occipital lobes consistent with new, acute/subacute infarcts. The entire region of involvement is approximately 2.2 x 8.4 cm in greatest transaxial dimension. These findings are superimposed on chronic white matter ischemic changes in the same region that were acute at the time of the comparison MRI. Currently off aspirin 81 mg daily and clopidogrel 75 mg daily as of 05/12, Currently on heparin gtt. Would like to transition to warfarin per neurology. Evaluated by neurology. Recommended increased suprapubic pressure with vasopressors. CCD M CT of the brain revealed no acute findings. CTA revealed occluded left ICA. Collaterals from right side noted CV: Left internal carotid artery occlusion Status post right carotid enterectomy 04/[address] Oakes Essential hypertension Hyperlipidemia/elevated LDL Received 1 L normal saline bolus on 05/12 overnight. Currently on phenylephrine drip to maintain systolic blood pressure greater than 140 for perfusion Holding home medications of valsartan and hydrochlorothiazide and attempt to increase cerebral perfusion pressures Was on losartan 100 mg daily and hydrochlorothiazide 12.5 mg daily Continue atorvastatin 80 mg daily for dyslipidemia Echocardiogram 04/24 revealed EF of 65-70%. PAP 30 mmHg Troponin 0.02. Started on Midodrine 2.5 3 times daily. Goal keep systolic pressure greater than equal to 140 Resp: Prior history of tobacco abuse Nasal cannula to maintain saturations greater than equal to 92% Incentive spirometry while awake Follow-up chest x-ray post line placement As needed albuterol aerosols every 2 hours as needed dyspnea GI: Hypoalbuminemia Advance diet as tolerated Pantoprazole for GI prophylaxis Docusate sodium/senna 1 tablet twice daily for bowel regimen With heme positive stool consult gastroneurology for possible endoscopy. Will need long-term anticoagulation : History of BPH Garcia catheter if indicated for accurate I's and O's in a critical patient Previously on tamsulosin 0.4 mg p.o. daily Endo: Sliding scale insulin Accu-Cheks every 6 hours maintain euglycemia/low regimen TSH was 1.44 Renal: Currently normal saline at 100 cc an hour. Okay to discontinue Monitor urine output Accurate I's and O's Follow BMP this a.m. Heme: Leukocytosis Normocytic anemia Monitor CBC daily. Follow trends. No indication for transfusion of blood products at this time ID: Monitor for signs and symptomatology infection MSK: PT/OT evaluate and treat FEN: Hypophosphatemia Replace electrolytes as clinically indicated per ICU electrolyte protocol 15 mmol K-Phos IV times now. Recheck in a.m. Access -Left IJ CVL day 2 placed 05/12 Prophylaxis -GI-pantoprazole -DVT SCD/heparin drip provides pharmacological prophylaxis Level 3 consult
--- NOTE | 2018-05-13 12:45 | P.CONGI ---
History of Present Illness Consult date: 05/13/18 Consult reason: Heme positive stools Chief complaint: Acute CVA w/ dysarthria History of Present Illness: Patient is an 83-year-old male who presented to the emergency department at [facility] as a stroke alert. Patient medical history significant for acute CVA, hypertension, or carotid artery stenosis, dysarthria and BPH. Patient suffered a stroke 3 weeks ago. Currently patient has right-sided weakness and aphasia. Patient currently on heparin drip and was on Plavix prior to admission. Last dose of Plavix noted 05/11/2018. Our service has been consulted to evaluate patient for heme positive stools. Upon consultation, patient spouse endorses that patient has had dark stools for the last 3-4 days while in the rehab center. She reports that he has had no complaints of nausea or vomiting but did endorse some lower abdominal discomfort. His spouse denies any known change in bowel habits. She denies knowledge of patient ever having had an EGD or colonoscopy in the past. Past medical history is significant for tonsillectomy as a child and right knee repair as an adult. She denies any known family history for gastrointestinal issues and states that patient does not smoke or use alcohol products. 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 HTN (hypertension) - Surgical History Surgical History: Surgical History (Last Reviewed 05/13/18 @ 08:33 by Israel Lyons) H/O carotid endarterectomy H/O arthroscopic knee surgery - Family History Family History: Family History (Last Updated 05/12/18 @ 11:21 by NADJA Bonilla) Sister Diabetes Mother CVA (cerebral vascular accident) - Tobacco History Second Hand Smoke Exposure: No Tobacco Use In Past 30 Days: No Smoking Status: Former smoker (Quit smoking approximately 40 years ago) Tobacco Type: Cigarettes Packs Per Day: 1 years: 20 - Alcohol History How Often Do You Have a Drink Containing Alcohol: Never - Substance Use History Substance History: No History of Abuse - Travel History Recent Travel in the [facility] Within the Last 8 Weeks: No Recent Travel Out of the Country Within the Last 8 Weeks: No - Immunization History Tetanus Immunization: Unsure Medications and Allergies Active Medications: Active Medications Aspirin (Aspirin Chew) 81 mg PO DAILY [facility] Last Admin: 05/12/18 10:10 Dose: Not Given Atorvastatin Calcium (Lipitor) 80 mg PO DAILY [facility] Last Admin: 05/13/18 09:24 Dose: 80 mg Dextrose (D50w Vial) 50 ml IV.PUSH UNSCH PRN PRN Reason: PER HYPOGLYCEMIA PROTOCOL Glucagon (Glucagon Inj) 1 mg OTHER UNSCH PRN PRN Reason: for Hypoglycemia Protocol Sodium Chloride (Ns Inj) 1,000 mls @ 100 mls/hr IV.CONT .Q10H [facility] Last Admin: 05/13/18 10:30 Dose: 165 mls/hr Heparin Sodium/Dextrose (Heparin/D5w 25,000 U/250 Ml) 25,000 unit in 250 mls @ 0 mls/hr IV.CONT TITRATE PRN; Protocol PRN Reason: Per Protocol Last Titration: 05/13/18 05:48 Dose: 0 units/hr, 0 mls/hr Phenylephrine HCl 160 mg/ (Sodium Chloride) 500 mls @ 7.5 mls/hr IV.CONT TITRATE PRN; Protocol PRN Reason: See protol Last Titration: 05/13/18 02:35 Dose: 60 mcg/min, 11.25 mls/hr Magnesium Sulfate 4 gm/ Sodium (Chloride) 100 mls @ 50 mls/hr IV.SIG UNSCH PRN PRN Reason: For Magnesium 0.9 - 1.1 mg/dL Magnesium Sulfate 2 gm/ Sodium (Chloride) 100 mls @ 50 mls/hr IV.SIG UNSCH PRN PRN Reason: For Magnesium 1.2 - 1.6 mg/dL Potassium Chloride (Kcl 40 Meq Premix Inj) 40 meq in 100 mls @ 25 mls/hr IV.SIG Q2H PRN PRN Reason: For Potassium 2.8 - 3.2 mEq/L Potassium Chloride (Kcl 20 Meq Premix Inj) 20 meq in 100 mls @ 50 mls/hr IV.SIG Q2H PRN PRN Reason: For Potassium 3.3 - 3.5 mEq/L Potassium Chloride (Kcl 40 Meq Premix Inj) 40 meq in 100 mls @ 25 mls/hr IV.SIG UNSCH PRN PRN Reason: For Potassium 3.3 - 3.5 mEq/L Potassium Chloride (Kcl 20 Meq Premix Inj) 20 meq in 100 mls @ 50 mls/hr IV.SIG Q2H PRN PRN Reason: For Potassium 2.8 - 3.2 mEq/L Potassium Phosphate 30 mmol/ (Sodium Chloride) 260 mls @ 42 mls/hr IV.SIG UNSCH PRN PRN Reason: SEE LABEL COMMENTS Sodium Phosphate 30 mmol/ (Sodium Chloride) 260 mls @ 42 mls/hr IV.SIG UNSCH PRN PRN Reason: For Phosphorus < 2.5 mg/dL Potassium Phosphate 15 mmol/ (Sodium Chloride) 155 mls @ 38.75 mls/hr IV.SIG ONCE ONE Stop: 05/13/18 14:59 Insulin Aspart (Novolog Insulin Correctional Sugar Inj) 0 unit SQ Q6HR [facility]; Protocol Last Admin: 05/13/18 11:17 Dose: Not Given Magnesium Oxide (Mag-Ox) 800 mg PO UNSCH PRN PRN Reason: For Magnesium 1.2 - 1.6 mg/dL Midodrine (Proamatine) 2.5 mg PO TID@0700,1200,1700 [facility] Last Admin: 05/13/18 11:17 Dose: 2.5 mg Pantoprazole Sodium (Protonix Inj) 40 mg IV.PUSH Q12H [facility] Last Admin: 05/13/18 10:16 Dose: 40 mg Potassium Bicarb/Potassium Chloride (K-Lyte Cl Eff) 50 meq PO UNSCH PRN PRN Reason: For Potassium 3.3 - 3.5 mEq/L Potassium Phosphate (K-Phos Original) 2,000 mg PO Q4H PRN PRN Reason: Phosphorus Less Than 2.5 mg/dL Potassium Phosphate (K-Phos Original) 2,000 mg PO UNSCH PRN PRN Reason: SEE LABEL COMMENTS Sodium Chloride (Ns Flush) 2 ml IV.FLUSH BID [facility] Last Admin: 05/13/18 09:25 Dose: 2 ml Sodium Chloride (Ns Flush) 2 ml IV.FLUSH PRN PRN PRN Reason: FLUSH AFTER USING IV ACCESS Sodium Chloride (Ns Flush) 0 ml IV.FLUSH DAILY [facility] Last Admin: 05/13/18 09:25 Dose: 10 ml Tamsulosin HCl (Flomax) 0.4 mg PO DAILY [facility] Last Admin: 05/13/18 09:25 Dose: 0.4 mg Terbutaline Sulfate (Brethine Inj) 1 mg SQ UNSCH PRN PRN Reason: For Extravasation Allergies Allergy/AdvReac Type Severity Reaction Status Date / Time No Known Allergies Allergy Verified 04/17/18 12:44 Home Medications Medication Instructions Recorded Confirmed Type tamsulosin 0.4 mg PO DAILY 04/17/18 05/11/18 History valsartan-hydrochlorothiazide 1 tab PO DAILY 04/17/18 05/11/18 History Exam Vital signs: Vital Signs 05/12/18 12:45 05/12/18 13:00 05/12/18 13:08 Temperature Pulse Rate 115 H 104 H 107 H Respiratory Rate 57 H 36 H 37 H Blood Pressure 154/89 H 181/80 H 143/67 H Pulse Oximetry 95 98 97 05/12/18 13:15 05/12/18 13:30 05/12/18 13:45 Temperature Pulse Rate 100 H 113 H 95 H Respiratory Rate 47 H 38 H 19 Blood Pressure 144/76 H 145/75 H 153/80 H Pulse Oximetry 97 96 95 05/12/18 14:00 05/12/18 14:15 05/12/18 14:22 Temperature Pulse Rate 113 H 104 H 104 H Respiratory Rate 41 H 33 H 41 H Blood Pressure 151/85 H 152/100 H 154/96 H Pulse Oximetry 98 98 96 05/12/18 14:30 05/12/18 14:45 05/12/18 15:00 Temperature Pulse Rate 121 H 100 H 126 H Respiratory Rate 38 H 28 H 35 H Blood Pressure 173/87 H 129/74 162/89 H Pulse Oximetry 97 98 97 05/12/18 15:15 05/12/18 15:30 05/12/18 15:45 Temperature Pulse Rate 99 H 115 H 98 H Respiratory Rate 18 36 H 22 Blood Pressure 127/60 147/78 H 141/57 H Pulse Oximetry 95 100 97 05/12/18 16:00 05/12/18 20:00 05/13/18 00:00 Temperature 98.0 F 98.0 F Pulse Rate 111 H 104 H 88 Respiratory Rate 29 H 24 25 H Blood Pressure 167/99 H 134/71 115/59 L Pulse Oximetry 99 100 90 L 05/13/18 04:00 12/07/18 07:55 Temperature Pulse Rate 82 Respiratory Rate 21 Blood Pressure 148/71 H Pulse Oximetry 90 L 93 L Intake & Output 05/12/18 05/13/18 05/13/18 18:59 06:59 18:59 Intake Total 2720 / 2720 2350 / 2350 1000 / 1000 Output Total 250 / 250 1700 / 1700 Balance 2470 / 2470 650 / 650 1000 / 1000 Weight 76.4 kg Intake: IV 1999 2250 / 2250 1000 / 1000 Heparin/D5W 25,000 U/250 mL 25, 250 / 250 000 unit In 250 ml @ Per Protocol IV.CONT TITRATE PRN Rx #:[id number] NS Inj 1,000 ML @ 100 mls/hr IV 1999 1000 / 1000 .CONT .Q10H [facility] Rx#:[id number] Oral 720 / 720 100 / 100 Output: Urine 250 / 250 Urine Amount (Catheter) 1700 / 1700 Condom 1700 / 1700 Other: # Voids 5 2 # Incontinent Voids 3 # Urine Diapers 1 Date of Last Bowel Movement 05/12/18 05/12/18 # Bowel Movements 2 0 # Incontinent Bowel Movements 2 - Constitutional no acute distress, chronically ill appearing - Routine HEENT Exam Head: Present: normocephalic - Routine Respiratory Exam Present: CTA bilaterally - Routine Cardiovascular Exam Present: RRR, S1, S2 - Routine Abdominal Exam Present: soft, normoactive bowel sounds. Absent: tenderness, distended, guarding, firm - Routine Extremities Exam Present: pulses intact. Absent: edema - Routine Skin Exam Present: dry, warm. Absent: pallor - Routine Neurological Exam Present: alert Aphasia Results - Labs CBC & Chem 7: 05/13/18 04:36 05/13/18 04:36 Labs: Laboratory Results - last 24 hr 05/12/18 05/12/18 05/12/18 06:12 13:05 23:38 WBC RBC Hgb Hct MCV MCH MCHC RDW Plt Count MPV Prelim Diff (Auto) Neut % (Auto) Lymph % (Auto) Cole % (Auto) Eos % (Auto) Baso % (Auto) Neut # (Auto) Lymph # (Auto) Cole # (Auto) Eos # (Auto) Baso # (Auto) WBC Differential Seg Neuts % (Manual) Band Neuts % (Manual) Lymphocytes % (Manual) Monocytes % (Manual) Eosinophils % (Manual) Metamyelocytes % (Man) Myelocytes % (Man) Abs Neuts (Manual) Differential Comment Platelet Estimate Platelet Morphology APTT Sodium Potassium Chloride Carbon Dioxide Anion Gap BUN Creatinine Estimated GFR POC Glucose 150 H Random Glucose Hemoglobin A1c 5.8 Calcium Phosphorus Magnesium Total Bilirubin AST ALT Alkaline Phosphatase Total Protein Albumin Stl C.difficile DNA Amp Negative St C. diff Tox Epid 027 Negative 05/13/18 05/13/18 05/13/18 04:36 04:36 04:36 WBC 12.7 H RBC 2.65 L Hgb 8.0 L Hct 22.9 L MCV 86.3 MCH 30.3 MCHC 35.1 RDW 14.6 Plt Count 247 MPV 7.2 Prelim Diff (Auto) Slide review pending Neut % (Auto) 76.2 H Lymph % (Auto) 13.7 Cole % (Auto) 8.3 H Eos % (Auto) 1.5 Baso % (Auto) 0.3 Neut # (Auto) 9.7 H Lymph # (Auto) 1.7 Cole # (Auto) 1.1 H Eos # (Auto) 0.2 Baso # (Auto) 0.0 WBC Differential Manual diff final Seg Neuts % (Manual) 77 H Band Neuts % (Manual) 2 Lymphocytes % (Manual) 14 Monocytes % (Manual) 3 Eosinophils % (Manual) 1 Metamyelocytes % (Man) 1 Myelocytes % (Man) 2 H Abs Neuts (Manual) 10.4 H Differential Comment . Platelet Estimate Normal Platelet Morphology Normal APTT 135.4 H* D Sodium 136 Potassium 3.7 Chloride 106 Carbon Dioxide 25.1 Anion Gap 5 BUN 7 Creatinine 0.68 Estimated GFR Greater than 89 POC Glucose Random Glucose 118 H Hemoglobin A1c Calcium 7.9 L Phosphorus 2.4 L Magnesium 2.1 Total Bilirubin 0.4 AST 17 ALT 26 Alkaline Phosphatase 53 Total Protein 5.7 L Albumin 2.9 L Stl C.difficile DNA Amp St C. diff Tox Epid 027 05/13/18 05/13/18 05:17 09:00 WBC RBC Hgb Hct MCV MCH MCHC RDW Plt Count MPV Prelim Diff (Auto) Neut % (Auto) Lymph % (Auto) Cole % (Auto) Eos % (Auto) Baso % (Auto) Neut # (Auto) Lymph # (Auto) Cole # (Auto) Eos # (Auto) Baso # (Auto) WBC Differential Seg Neuts % (Manual) Band Neuts % (Manual) Lymphocytes % (Manual) Monocytes % (Manual) Eosinophils % (Manual) Metamyelocytes % (Man) Myelocytes % (Man) Abs Neuts (Manual) Differential Comment Platelet Estimate Platelet Morphology APTT 140.3 H* 31.8 H D Sodium Potassium Chloride Carbon Dioxide Anion Gap BUN Creatinine Estimated GFR POC Glucose Random Glucose Hemoglobin A1c Calcium Phosphorus Magnesium Total Bilirubin AST ALT Alkaline Phosphatase Total Protein Albumin Stl C.difficile DNA Amp St C. diff Tox Epid 027 Assessment and Plan (1) Heme positive stool Status: Acute Code(s): R19.5 - Other fecal abnormalities - Plan Patient is an 83-year-old male who presented to the emergency department at [facility] as a stroke alert. Patient medical history significant for acute CVA, hypertension, or carotid artery stenosis, dysarthria and BPH. Patient suffered a stroke 3 weeks ago. Currently patient has right-sided weakness and aphasia. Patient currently on heparin drip and was on Plavix prior to admission. Last dose of Plavix noted 05/11/2018. Our service has been consulted to evaluate patient for heme positive stools. Upon consultation, patient spouse endorses that patient has had dark stools for the last 3-4 days while in the rehab center. She reports that he has had no complaints of nausea or vomiting but did endorse some lower abdominal discomfort. His spouse denies any known change in bowel habits. She denies knowledge of patient ever having had an EGD or colonoscopy in the past. Past medical history is significant for tonsillectomy as a child and right knee repair as an adult. She denies any known family history for gastrointestinal issues and states that patient does not smoke or use alcohol products Heme positive stools Spouse endorses onset of dark stools 3-4 days prior to admission. Patient post acute CVA currently on heparin infusion. Patient was on Plavix 75 mg p.o. daily. Last noted dose 05/11/2018. (05/11) hemoglobin 10.1 hematocrit 28.8 ,05/13/2018 hemoglobin 8.0 hematocrit 22.9 platelet count 247 INR 1.1. * BP presently 96/51 [place]-Synephrine infusing. Plan Cardiac diet Patient will need EGD/colonoscopy when stable Consider bleeding scan Monitor for bleeding Monitor hemoglobin and hematocrit closely Transfuse as needed Continue pantoprazole 40 mg IV every 12 hours Supportive care Further recommendations to follow This patient has been seen by myself and and this note is written on his behalf - Attending Attestation Dr. Ramires
--- NOTE | 2018-05-13 13:10 | MB ---
cc: Trent Yoon MD DATE: 05/13/2018 CARDIOLOGY CONSULTATION REASON FOR CONSULTATION: Cardiac evaluation. HISTORY OF PRESENT ILLNESS: This is an 83-year-old man with a history of known carotid disease. He has had carotid endarterectomy before. He has an occluded left internal carotid artery; history of dementia, hypertension and hyperlipidemia. He had a prior CVA. His right carotid was done 04/24/2018. He is in ICU with apparently a recent stroke with right-sided weakness and expressive and receptive aphasia. I could not obtain any history from the patient. They have been trying to keep his blood pressure elevated. He has previously been on losartan and hydrochlorothiazide; those have been stopped. Neurology has ordered midodrine to elevate blood pressures apparently. PAST MEDICAL HISTORY: As documented and obtained from the chart. I was unable to get any history directly from the patient. PHYSICAL EXAMINATION: GENERAL: Exam shows a well-developed, well-nourished man lying supine, in no obvious acute distress. HEENT: Unremarkable. NECK: No JVD. No bruits. CHEST: Clear to auscultation. CARDIOVASCULAR: Normal S1, S2. Regular rate and rhythm without murmurs or gallops. ABDOMEN: Soft, nontender. EXTREMITIES: No clubbing, cyanosis or edema. Pulses are intact. LABORATORY DATA: Cardiac enzymes were checked and were less than 0.02 at 12:15 a.m. yesterday and also at 3:11 p.m. on 05/11/2018. DIAGNOSTIC DATA: EKG obtained 05/11/2018 shows sinus rhythm at 98 beats per minute and appears normal with no acute ST-T wave changes. 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 I do not see evidence for acute coronary syndrome or an arrhythmia event. Troponins have been negative. RECOMMENDATIONS: I will be available as needed if there are any questions regarding cardiology. For now, I do not see any acute issues. MD EMELY Butt/tanner , 12:42 PM , 12:48 PM
--- NOTE | 2018-05-13 14:22 | P.PNFP ---
Subjective Interval history: Patient seen and examined this morning. Patient continues to have dysarthria, difficulty understanding and following commands. He will follow commands, however occasionally has difficulty. He believes that his dysarthria is mildly improved, believes his weakness is improved. His reports episodes of black stools over the past several days. Denies nausea, vomiting, fever, chills, abdominal pain, chest pain, shortness of breath, lightheadedness, dizziness. <Noah Cheatham - 05/13/18 15:04> Results - Labs Result diagrams: 05/16/18 04:00 05/16/18 14:18 <Facundo Thomas - 05/16/18 15:17> Abnormal lab results 05/15/18 05/16/18 05/16/18 Range/Units 16:15 04:00 04:00 RBC 3.09 L (4.50-5.90) mil/mm3 Hgb 9.5 L (13.0-17.0) gm/dL Hct 27.0 L (39.0-51.0) % MPV 6.9 L (7.0-11.0) fL Neut % (Auto) 78.1 H (16.0-70.0) % Neut # (Auto) 8.0 H (1.8-7.7) th/mm3 APTT 62.5 H 65.9 H (23.4-31.7) sec Potassium (3.5-5.1) meq/L Calcium (8.5-10.1) mg/dL 05/16/18 Range/Units 04:00 RBC (4.50-5.90) mil/mm3 Hgb (13.0-17.0) gm/dL Hct (39.0-51.0) % MPV (7.0-11.0) fL Neut % (Auto) (16.0-70.0) % Neut # (Auto) (1.8-7.7) th/mm3 APTT (23.4-31.7) sec Potassium 3.3 L (3.5-5.1) meq/L Calcium 8.2 L (8.5-10.1) mg/dL Short CBC 05/16/18 Range/Units 04:00 WBC 10.2 (4.0-11.0) th/mm3 Hgb 9.5 L (13.0-17.0) gm/dL Hct 27.0 L (39.0-51.0) % Plt Count 212 (150-450) th/mm3 [facility] 05/16/18 05/16/18 04:00 14:18 Sodium 137 Potassium 3.3 L 3.5 Chloride 104 Carbon Dioxide 23.3 BUN 11 Creatinine 0.73 Calcium 8.2 L <Facundo Thomas - 05/16/18 15:17> Abnormal lab results 05/12/18 05/13/18 05/13/18 Range/Units 23:38 04:36 04:36 WBC 12.7 H (4.0-11.0) th/mm3 RBC 2.65 L (4.50-5.90) mil/mm3 Hgb 8.0 L (13.0-17.0) gm/dL Hct 22.9 L (39.0-51.0) % Neut % (Auto) 76.2 H (16.0-70.0) % Irion % (Auto) 8.3 H (0.0-8.0) % Neut # (Auto) 9.7 H (1.8-7.7) th/mm3 Irion # (Auto) 1.1 H (0.0-0.9) th/mm3 Seg Neuts % (Manual) 77 H (16-70) % Myelocytes % (Man) 2 H (0-0) % Abs Neuts (Manual) 10.4 H (1.8-7.7) th/mm3 APTT (23.4-31.7) sec POC Glucose 150 H (68-110) mg/dl Random Glucose 118 H (74-106) mg/dL Calcium 7.9 L (8.5-10.1) mg/dL Phosphorus 2.4 L (2.5-4.9) mg/dL Total Protein 5.7 L (6.4-8.2) g/dL Albumin 2.9 L (3.4-5.0) g/dL 05/13/18 05/13/18 05/13/18 Range/Units 04:36 05:17 09:00 WBC (4.0-11.0) th/mm3 RBC (4.50-5.90) mil/mm3 Hgb (13.0-17.0) gm/dL Hct (39.0-51.0) % Neut % (Auto) (16.0-70.0) % Irion % (Auto) (0.0-8.0) % Neut # (Auto) (1.8-7.7) th/mm3 Irion # (Auto) (0.0-0.9) th/mm3 Seg Neuts % (Manual) (16-70) % Myelocytes % (Man) (0-0) % Abs Neuts (Manual) (1.8-7.7) th/mm3 APTT 135.4 H* D 140.3 H* 31.8 H D (23.4-31.7) sec POC Glucose (68-110) mg/dl Random Glucose (74-106) mg/dL Calcium (8.5-10.1) mg/dL Phosphorus (2.5-4.9) mg/dL Total Protein (6.4-8.2) g/dL Albumin (3.4-5.0) g/dL Short CBC 05/13/18 Range/Units 04:36 WBC 12.7 H (4.0-11.0) th/mm3 Hgb 8.0 L (13.0-17.0) gm/dL Hct 22.9 L (39.0-51.0) % Plt Count 247 (150-450) th/mm3 BMP 05/13/18 04:36 Sodium 136 Potassium 3.7 Chloride 106 Carbon Dioxide 25.1 BUN 7 Creatinine 0.68 Calcium 7.9 L Liver Function 05/13/18 Range/Units 04:36 Total Bilirubin 0.4 (0.2-1.0) mg/dL AST 17 (15-37) U/L ALT 26 (12-78) U/L Alkaline Phosphatase 53 (45-117) U/L Albumin 2.9 L (3.4-5.0) g/dL <Noah Cheatham A - 05/13/18 14:22> Physical Exam Vital signs: Vital Signs 05/15/18 15:30 05/15/18 15:45 05/15/18 16:00 Temperature 98.0 F Pulse Rate 89 84 81 Respiratory Rate 15 16 14 Blood Pressure 133/82 124/58 L 125/61 Pulse Oximetry 96 97 98 05/15/18 16:15 05/15/18 16:30 05/15/18 16:45 Temperature Pulse Rate 83 76 77 Respiratory Rate 16 14 15 Blood Pressure 130/64 128/62 126/64 Pulse Oximetry 97 97 98 05/15/18 17:00 05/15/18 17:15 05/15/18 17:30 Temperature Pulse Rate 78 95 H 95 H Respiratory Rate 14 17 24 Blood Pressure 136/72 136/72 135/69 Pulse Oximetry 97 97 97 05/15/18 17:45 05/15/18 19:49 05/15/18 20:00 Temperature Pulse Rate 82 78 Respiratory Rate 16 Blood Pressure 125/61 Pulse Oximetry 96 97 100 05/15/18 23:15 05/15/18 23:30 05/15/18 23:45 Temperature 98.6 F Pulse Rate 82 78 84 Respiratory Rate 14 22 Blood Pressure 147/76 H 126/63 129/69 Pulse Oximetry 97 96 100 05/16/18 00:00 05/16/18 00:15 05/16/18 00:30 Temperature Pulse Rate 81 84 86 Respiratory Rate 23 22 22 Blood Pressure 127/66 132/68 131/61 Pulse Oximetry 99 98 96 05/16/18 00:45 05/16/18 01:00 05/16/18 01:15 Temperature Pulse Rate 101 H 80 80 Respiratory Rate 22 22 16 Blood Pressure 157/74 H 139/64 148/70 H Pulse Oximetry 99 98 96 05/16/18 01:30 05/16/18 01:45 05/16/18 02:00 Temperature Pulse Rate 82 87 85 Respiratory Rate 23 16 21 Blood Pressure 146/80 H 143/71 H 159/75 H Pulse Oximetry 97 98 100 05/16/18 02:15 05/16/18 02:30 05/16/18 02:45 Temperature Pulse Rate 80 91 H Respiratory Rate 23 20 18 Blood Pressure 140/62 139/63 130/66 Pulse Oximetry 96 97 97 05/16/18 03:00 05/16/18 03:15 05/16/18 03:30 Temperature Pulse Rate 84 89 90 Respiratory Rate 15 16 16 Blood Pressure 128/70 121/67 122/70 Pulse Oximetry 98 96 98 05/16/18 03:45 05/16/18 04:00 05/16/18 04:15 Temperature 98.3 F Pulse Rate 98 H 98 H 89 Respiratory Rate 22 16 15 Blood Pressure 156/86 H 157/66 H 141/65 H Pulse Oximetry 99 97 96 05/16/18 04:30 05/16/18 04:45 05/16/18 05:00 Temperature Pulse Rate 84 90 98 H Respiratory Rate 14 16 Blood Pressure 144/67 H 147/72 H 147/75 H Pulse Oximetry 98 100 100 05/16/18 05:15 05/16/18 06:45 05/16/18 07:00 Temperature Pulse Rate 81 100 H 95 H Respiratory Rate 24 25 H 21 Blood Pressure 146/79 H 168/74 H 143/72 H Pulse Oximetry 95 97 96 05/16/18 07:15 05/16/18 07:30 05/16/18 07:45 Temperature Pulse Rate 91 H 86 84 Respiratory Rate 17 21 22 Blood Pressure 138/64 141/67 H 141/64 H Pulse Oximetry 95 96 97 05/16/18 08:00 05/16/18 08:15 05/16/18 08:30 Temperature Pulse Rate 95 H 88 91 H Respiratory Rate 18 26 H 16 Blood Pressure 138/66 129/61 144/72 H Pulse Oximetry 97 97 98 05/16/18 08:31 05/16/18 08:45 05/16/18 09:00 Temperature Pulse Rate 88 86 Respiratory Rate 16 18 Blood Pressure 132/63 128/63 Pulse Oximetry 99 97 97 05/16/18 09:15 05/16/18 09:30 05/16/18 09:45 Temperature Pulse Rate 83 82 82 Respiratory Rate 27 H 25 H 26 H Blood Pressure 131/72 146/76 H 138/67 Pulse Oximetry 97 98 97 05/16/18 10:00 05/16/18 10:15 05/16/18 10:30 Temperature Pulse Rate 82 88 90 Respiratory Rate 27 H 16 17 Blood Pressure 140/70 151/78 H 151/81 H Pulse Oximetry 99 98 97 05/16/18 10:45 05/16/18 11:00 05/16/18 11:15 Temperature Pulse Rate 105 H 99 H 93 H Respiratory Rate 28 H 31 H 22 Blood Pressure 164/78 H 147/59 H 141/65 H Pulse Oximetry 98 96 97 05/16/18 11:30 05/16/18 11:45 05/16/18 12:00 Temperature 99.7 F H Pulse Rate 88 87 101 H Respiratory Rate 24 17 24 Blood Pressure 128/62 121/64 116/66 Pulse Oximetry 98 97 97 05/16/18 12:15 05/16/18 12:18 05/16/18 12:30 Temperature Pulse Rate 98 H 97 H 92 H Respiratory Rate 20 17 17 Blood Pressure 115/68 135/63 120/63 Pulse Oximetry 97 97 98 Intake & Output 05/15/18 05/16/18 05/16/18 18:59 06:59 18:59 Intake Total 1770 / 1770 1999 Output Total 650 / 650 1500 / 1500 Balance 1120 / 1120 500 / 500 Weight 78.5 kg Intake: IV 1350 / 1350 1999 Heparin/D5W 25,000 U/250 mL 25, 250 / 250 000 unit In 250 ml @ Per Protocol IV.CONT TITRATE PRN Rx #:[id number] Neosynephrine Inj 160 MG In NS 100 / 100 Inj 484 ML @ 40 MCG/MIN 7.5 mls /hr IV.CONT TITRATE PRN Rx#: [id number] NS Inj 1,000 ML @ 100 mls/hr IV 1000 / 1000 1999 .CONT .Q10H DIONISIO Rx#:[id number] Oral 420 / 420 Output: Urine Amount (Catheter) 650 / 650 1500 / 1500 Condom 650 / 650 1500 / 1500 Other: Date of Last Bowel Movement 05/12/18 05/12/18 05/12/18 # Bowel Movements 0 # Incontinent Bowel Movements 1 <Facundo Thomas - 05/16/18 15:17> Vital Signs 05/12/18 14:30 05/12/18 14:45 05/12/18 15:00 Temperature Pulse Rate 121 H 100 H 126 H Respiratory Rate 38 H 28 H 35 H Blood Pressure 173/87 H 129/74 162/89 H Pulse Oximetry 97 98 97 05/12/18 15:15 05/12/18 15:30 05/12/18 15:45 Temperature Pulse Rate 99 H 115 H 98 H Respiratory Rate 18 36 H 22 Blood Pressure 127/60 147/78 H 141/57 H Pulse Oximetry 95 100 97 05/12/18 16:00 05/12/18 20:00 05/13/18 00:00 Temperature 98.0 F 98.0 F Pulse Rate 111 H 104 H 88 Respiratory Rate 29 H 24 25 H Blood Pressure 167/99 H 134/71 115/59 L Pulse Oximetry 99 100 90 L 05/13/18 04:00 05/13/18 07:55 Temperature Pulse Rate 82 Respiratory Rate 21 Blood Pressure 148/71 H Pulse Oximetry 90 L 93 L Intake & Output 05/12/18 05/13/18 05/13/18 18:59 06:59 18:59 Intake Total 2720 / 2720 2350 / 2350 1000 / 1000 Output Total 250 / 250 1700 / 1700 Balance 2470 / 2470 650 / 650 1000 / 1000 Weight 76.4 kg Intake: IV 1999 2250 / 2250 1000 / 1000 Heparin/D5W 25,000 U/250 mL 25, 250 / 250 000 unit In 250 ml @ Per Protocol IV.CONT TITRATE PRN Rx #:[id number] NS Inj 1,000 ML @ 100 mls/hr IV 1999 1000 / 1000 .CONT .Q10H DIONISIO Rx#:[id number] Oral 720 / 720 100 / 100 Output: Urine 250 / 250 Urine Amount (Catheter) 1700 / 1700 Condom 1700 / 1700 Other: # Voids 5 2 # Incontinent Voids 3 # Urine Diapers 1 Date of Last Bowel Movement 05/12/18 05/12/18 # Bowel Movements 2 0 # Incontinent Bowel Movements 2 <Noah Cheatham - 05/13/18 14:22> Narrative: General: Well-developed, alert, and in no acute distress. Appears stated age. HEENT: Atraumatic, moist mucous membranes Neck: Supple, non-tender without masses or lymphadenopathy, trachea midline Cardiac: Tachycardic with regular rhythm without murmur Pulmonary: Non-labored breathing. Lungs clear to auscultation bilaterally with good air movement Abdomen: Normal bowel sounds, soft and non-tender without rebound or guarding Extremities: No edema, 2+ pedal pulses, capillary refill less than 2 seconds Neurologic: He has significant slurring of his speech. Pronator drift on the right side. 5 out of 5 strength in the left upper and lower extremities. 4 out of 5 strength in the right upper and lower extremities. facial muscle asymmetry noted with smiling. <Noah Cheatham - 05/13/18 15:04> - Urinary Catheter Management Condom Cath placed during this visit: no <Facundo Thomas - 05/16/18 15:17> no <Noah Cheatham - 05/13/18 15:04> Assessment and Plan - Assessment (1) Acute CVA (cerebrovascular accident) Code(s): I63.9 - Cerebral infarction, unspecified Status: Acute (2) Confusion Code(s): R41.0 - Disorientation, unspecified Status: Acute (3) Hypertension Code(s): I10 - Essential (primary) hypertension Status: Acute (4) Internal carotid artery stenosis Code(s): I65.29 - Occlusion and stenosis of unspecified carotid artery Status : Acute (5) Dysarthria Code(s): R47.1 - Dysarthria and anarthria Status: Acute (6) Heme positive stool Code(s): R19.5 - Other fecal abnormalities Status: Acute <Facundo Thomas - 05/16/18 15:17> (1) Acute CVA (cerebrovascular accident) Code(s): I63.9 - Cerebral infarction, unspecified Status: Acute (2) Confusion Code(s): R41.0 - Disorientation, unspecified Status: Acute (3) Hypertension Code(s): I10 - Essential (primary) hypertension Status: Acute (4) Internal carotid artery stenosis Code(s): I65.29 - Occlusion and stenosis of unspecified carotid artery Status : Acute (5) Dysarthria Code(s): R47.1 - Dysarthria and anarthria Status: Acute (6) Heme positive stool Code(s): R19.5 - Other fecal abnormalities Status: Acute <Noah Cheatham - 05/13/18 14:58> - Assessment and Plan Patient is an 83-year-old male who presented with right-sided weakness onset on 05/11/2018 at about 10 AM. His symptoms at presentation included right-sided weakness, dysarthria, expressive and receptive aphasia, and potentially increased confusion. He is oriented to person and place, but not time. He had a recent stroke about 3 weeks ago and was in rehab. His mental status over the past few weeks is unclear. His son states that he is currently not much different than baseline, however he is unable to say why he is in the hospital and unable to state the year. Acute stroke: -Consult to neurology * Watershed CVA due to low blood pressure * Maintain systolic BP >=140 * Coumadin * Would need a loop recorder to assess for AFIB -Continuous telemetry -Neurochecks every 4 hours -Hold daily aspirin 81 mg -Hold daily Plavix -Continue Lipitor 80 mg p.o. at bedtime -HbA1c 5.8 -Physical therapy to evaluate and treat * Recommends rehab --Speech therapy: Will need continued therapy Chronic hypertension: -Hold home antihypertensives Labetalol for SBP greater than 220 or DBP greater than 120 Confusion: This may be entirely from his CVA, however other causes may contribute especially considering the time course of his symptoms. -Urinalysis to assess for UTI - negative Heme Positive stool: Reported black stools with heme positive. GI consulted. GI recommendations * EGD/colonoscopy once stable * Consider bleeding scan * Monitor for bleeding and H&H * Transfuse as needed Fluids: Normal saline at 100 cc/h Electrolytes: monitor and replete as needed Nutrition: NPO until cleared by speech therapy GI prophylaxis: not indicated VTE prophylaxis: Subcutaneous Lovenox CODE STATUS: Today, son intimated that he should be DNR per his wishes and agreed to a palliative care consult to clearly delineate goals of care. Notably this particular son is not his HCS/POA. <Noah Cheatham - 05/13/18 15:04> - Attending Attestation See the residents documentation for details. I saw and evaluated the patient regarding the jenkins portions of this evaluation and agree with the residents findings and plans as written. Parts of this note were created using [employer] voice recognition software program. While efforts were made to correct any mistakes made by this software, some mistakes, errors, and omissions may remain in the final note that were not caught when the note was originally created. Plan of care was discussed and agreed upon with the patient as specifically documented in the above note. An opportunity to ask questions with explanation was provided. Patient voiced understanding on all information reviewed and discussed. <Facundo Thomas - 05/16/18 15:17>
--- NOTE | 2018-05-13 17:40 | P.PNPAL ---
Reason for Visit Reason for visit: a. To assist with evaluation and management of symptoms including: pain, debility b. To assist medical decision maker(s) with: better understanding of current medical conditions; weighing benefits/burdens of medical treatment options; making medical treatment decisions. Subjective Subjective/Interval History: Mr. Barber is an 83-year-old male who presented to [facility] on 05/11/2018 via EMS as a stroke alert. Approximately 3 weeks earlier the patient suffered a stroke which left him with residual right-sided weakness, mild dysarthria, intermittent confusion. Upon discharge on 04/24/18, Mr. Barber was transferred to [facility]. His functional status was slowly improving until the morning of 05/11/2018 when he developed additional, increased symptoms. 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 The entire region of involvement is approximately 2.2 x 8.4 cm in greatest transaxial dimension. Follow-up visit for symptom management of pain and debility as well as clarification of medical treatment goals. Patient seen and assessed in [facility], room 1331. Patient's and son were at bedside. Patient has had a significant decline in his neurological status since yesterday. He is confused and aphasic. He can only follow a few simple commands. Patient is off phenylephrine drip; started on Midodrine 2.5 mg TID. Gastroenterology was consulted for possible endoscopy secondary to niya- positive stools. Started on Protonix. Patient will need long-term anticoagulation. Cardiology was consulted for possible loop recorder placement. Goals remain aggressive up to the point of cardiopulmonary resuscitation. Advance Directives Documented care wishes:: Family believes the patient completed written advanced directive and will bring a copy of the documents when they are found. Objective Vital Signs: Vital Signs 05/12/18 20:00 05/13/18 00:00 05/13/18 04:00 Temperature 98.0 F Pulse Rate 104 H 88 82 Respiratory Rate 24 25 H 21 Blood Pressure 134/71 115/59 L 148/71 H Pulse Oximetry 100 90 L 90 L 05/13/18 07:55 05/13/18 08:00 05/13/18 12:01 Temperature Pulse Rate 85 95 H Respiratory Rate 19 Blood Pressure 100/57 L Pulse Oximetry 93 L 98 05/13/18 12:16 05/13/18 12:28 05/13/18 12:31 Temperature Pulse Rate 108 H 95 H 105 H Respiratory Rate 49 H 26 H 26 H Blood Pressure 102/55 L 100/58 L 101/55 L Pulse Oximetry 99 98 98 05/13/18 12:46 05/13/18 13:00 05/13/18 13:01 Temperature Pulse Rate 90 85 81 Respiratory Rate 28 H 15 18 Blood Pressure 96/51 L 100/59 L Pulse Oximetry 99 100 99 05/13/18 13:11 05/13/18 13:16 05/13/18 13:31 Temperature Pulse Rate 80 84 90 Respiratory Rate 16 21 24 Blood Pressure 110/62 110/55 L 122/66 Pulse Oximetry 99 99 99 05/13/18 13:44 05/13/18 13:46 05/13/18 14:00 Temperature Pulse Rate 92 H 95 H 94 H Respiratory Rate 17 24 34 H Blood Pressure 126/68 132/70 Pulse Oximetry 99 99 98 05/13/18 14:01 05/13/18 14:16 05/13/18 14:31 Temperature Pulse Rate 95 H 99 H 93 H Respiratory Rate 39 H 26 H 21 Blood Pressure 138/74 124/75 128/75 Pulse Oximetry 98 98 98 05/13/18 14:46 05/13/18 15:00 05/13/18 15:01 Temperature Pulse Rate 90 96 H 96 H Respiratory Rate 19 22 24 Blood Pressure 122/69 137/72 Pulse Oximetry 96 98 97 05/13/18 15:16 05/13/18 15:31 05/13/18 15:46 Temperature Pulse Rate 92 H 92 H 93 H Respiratory Rate 16 23 27 H Blood Pressure 138/76 139/76 143/65 H Pulse Oximetry 98 98 98 05/13/18 16:00 05/13/18 16:01 05/13/18 16:16 Temperature Pulse Rate 90 85 82 Respiratory Rate 29 H 26 H 26 H Blood Pressure 143/66 H 140/67 Pulse Oximetry 97 98 99 05/13/18 16:31 05/13/18 16:46 Temperature Pulse Rate 81 82 Respiratory Rate 26 H 27 H Blood Pressure 119/60 136/65 Pulse Oximetry 98 99 Intake & Output 05/12/18 05/13/18 05/13/18 18:59 06:59 18:59 Intake Total 2720 / 2720 2350 / 2350 1155 / 1155 Output Total 250 / 250 1700 / 1700 Balance 2470 / 2470 650 / 650 1155 / 1155 Weight 76.4 kg Intake: IV 1999 2250 / 2250 1155 / 1155 Heparin/D5W 25,000 U/250 mL 25, 250 / 250 000 unit In 250 ml @ Per Protocol IV.CONT TITRATE PRN Rx #:[id number] NS Inj 1,000 ML @ 100 mls/hr IV 1999 1000 / 1000 .CONT .Q10H DIONISIO Rx#:[id number] Potassium Phosphate Inj 15 MMOL 155 / 155 In NS Inj 150 ML @ 38.75 mls/ hr IV.SIG ONCE ONE Rx#:[id number] Oral 720 / 720 100 / 100 Output: Urine 250 / 250 Urine Amount (Catheter) 1700 / 1700 Condom 1700 / 1700 Other: # Voids 5 2 # Incontinent Voids 3 # Urine Diapers 1 Date of Last Bowel Movement 05/12/18 05/12/18 # Bowel Movements 2 0 # Incontinent Bowel Movements 2 Physical Exam: CONSTITUTIONAL/GENERAL: This is an adequately nourished patient, in no apparent distress. TUBES/LINES/DRAINS: PIV, condom cath SKIN: No jaundice, rashes, or lesions. Ecchymoses on upper extremities. No wounds seen anteriorly. Skin temperature appropriate. Not diaphoretic. HEAD: Atraumatic. Normocephalic. EYES: Pupils equal and round and reactive. Extraocular motions intact. No scleral icterus. No injection or drainage. Fundi not examined. ENT: Hearing grossly normal. Nose without bleeding or purulent drainage. Throat without visible erythema, exudates, masses, or lesions. NECK: Trachea midline. Supple, nontender. No palpable thyroid enlargement or nodularity. CARDIOVASCULAR: Regular rate and rhythm without murmurs, gallops, or rubs. No JVD. Peripheral pulses symmetric. RESPIRATORY/CHEST: Symmetric, unlabored respirations. Clear to auscultation. Breath sounds diminished bilaterally. No wheezes, rales, or rhonchi. GASTROINTESTINAL: Abdomen soft; lower abdomen slightly tender to palpation. No hepato-splenomegaly, or palpable masses. No guarding. Bowel sounds present. GENITOURINARY: Without palpable bladder distension. Condom catheter in place. MUSCULOSKELETAL: Extremities without clubbing, cyanosis, or edema. No joint tenderness or effusion noted. No calf tenderness. No mottling or clubbing. LYMPHATICS: No palpable cervical or supraclavicular adenopathy. NEUROLOGICAL: Confused. Aphasic. Only follows a few simple commands. PSYCHIATRIC: No obvious anxiety/depression. No apparent hallucinations or other psychotic thought process. Diagnostic Tests Laboratory: Laboratory Results - last 72 hr 05/11/18 05/11/18 05/11/18 15:11 15:11 15:11 WBC 15.4 H RBC 3.35 L Hgb 10.1 L POC Hgb (Calc) 10.2 L Hct 28.8 L POC Hct 30.0 L MCV 86.1 MCH 30.1 MCHC 35.0 RDW 14.0 Plt Count 287 MPV 7.5 Prelim Diff (Auto) Slide review pending Neut % (Auto) 77.6 H Lymph % (Auto) 13.0 Sac % (Auto) 8.1 H Eos % (Auto) 1.0 Baso % (Auto) 0.3 Neut # (Auto) 12.0 H Lymph # (Auto) 2.0 Sac # (Auto) 1.3 H Eos # (Auto) 0.1 Baso # (Auto) 0.1 WBC Differential . Diff Scan Auto diff confirmed Seg Neuts % (Manual) Band Neuts % (Manual) Lymphocytes % (Manual) Monocytes % (Manual) Eosinophils % (Manual) Basophils % (Manual) Metamyelocytes % (Man) Myelocytes % (Man) Abs Neuts (Manual) Differential Comment . Platelet Estimate Normal Platelet Morphology Normal Helmet Cells PT 10.9 INR 1.1 APTT 27.9 Fibrinogen 412 H POC Sodium 129 L Sodium POC Potassium 4.1 Potassium POC Chloride 92 L Chloride Carbon Dioxide Anion Gap POC BUN 20 BUN Creatinine POC Creatinine 0.7 Estimated GFR POC Glucose 115 H Random Glucose Hemoglobin A1c Calcium Phosphorus Magnesium Total Bilirubin AST ALT Alkaline Phosphatase Total Creatine Kinase 88 Troponin I Less than 0.02 L Total Protein Albumin Urine Color Urine Clarity Urine pH Ur Specific [place] Urine Protein Urine Glucose (UA) Urine Ketones Urine Occult Blood Urine Nitrate Urine Bilirubin Urine Urobilinogen Ur Leukocyte Esterase Urine WBC Urine Mucus Micro UA Comment Ur Microscopic Review Urine Culture Comments Nasal Screen MRSA (PCR) Stl C.difficile DNA Amp St C. diff Tox Epid 027 Urine Opiates Screen Ur Barbiturates Screen Ur Amphetamines Screen U Benzodiazepines Scrn Urine Cocaine Screen U Cannabinoids Screen Blood Type Antibody Screen 05/11/18 05/11/18 05/11/18 19:30 19:30 20:20 WBC RBC Hgb POC Hgb (Calc) Hct POC Hct MCV MCH MCHC RDW Plt Count MPV Prelim Diff (Auto) Neut % (Auto) Lymph % (Auto) Sac % (Auto) Eos % (Auto) Baso % (Auto) Neut # (Auto) Lymph # (Auto) Sac # (Auto) Eos # (Auto) Baso # (Auto) WBC Differential Diff Scan Seg Neuts % (Manual) Band Neuts % (Manual) Lymphocytes % (Manual) Monocytes % (Manual) Eosinophils % (Manual) Basophils % (Manual) Metamyelocytes % (Man) Myelocytes % (Man) Abs Neuts (Manual) Differential Comment Platelet Estimate Platelet Morphology Helmet Cells PT INR APTT Fibrinogen POC Sodium Sodium POC Potassium Potassium POC Chloride Chloride Carbon Dioxide Anion Gap POC BUN BUN Creatinine POC Creatinine Estimated GFR POC Glucose Random Glucose Hemoglobin A1c Calcium Phosphorus Magnesium Total Bilirubin AST ALT Alkaline Phosphatase Total Creatine Kinase Troponin I Total Protein Albumin Urine Color Straw Urine Clarity Clear Urine pH 6.0 Ur Specific [place] 1.055 H Urine Protein Negative Urine Glucose (UA) Negative Urine Ketones Trace H Urine Occult Blood Negative Urine Nitrate Negative Urine Bilirubin Negative Urine Urobilinogen Less than 2 Ur Leukocyte Esterase Negative Urine WBC Less than 1 Urine Mucus Few H Micro UA Comment Cath-culture not ind Ur Microscopic Review Not Reportable Urine Culture Comments Cath-cult not ind Nasal Screen MRSA (PCR) Stl C.difficile DNA Amp St C. diff Tox Epid 027 Urine Opiates Screen Neg Ur Barbiturates Screen Neg Ur Amphetamines Screen Neg U Benzodiazepines Scrn Neg Urine Cocaine Screen Neg U Cannabinoids Screen Neg Blood Type O Negative Antibody Screen Negative 05/11/18 05/11/18 05/11/18 20:56 21:04 21:50 WBC RBC Hgb POC Hgb (Calc) Hct POC Hct MCV MCH MCHC RDW Plt Count MPV Prelim Diff (Auto) Neut % (Auto) Lymph % (Auto) Sac % (Auto) Eos % (Auto) Baso % (Auto) Neut # (Auto) Lymph # (Auto) Sac # (Auto) Eos # (Auto) Baso # (Auto) WBC Differential Diff Scan Seg Neuts % (Manual) Band Neuts % (Manual) Lymphocytes % (Manual) Monocytes % (Manual) Eosinophils % (Manual) Basophils % (Manual) Metamyelocytes % (Man) Myelocytes % (Man) Abs Neuts (Manual) Differential Comment Platelet Estimate Platelet Morphology Helmet Cells PT INR APTT Fibrinogen POC Sodium Sodium POC Potassium Potassium POC Chloride Chloride Carbon Dioxide Anion Gap POC BUN BUN Creatinine POC Creatinine Estimated GFR POC Glucose 59 L 120 H 125 H Random Glucose Hemoglobin A1c Calcium Phosphorus Magnesium Total Bilirubin AST ALT Alkaline Phosphatase Total Creatine Kinase Troponin I Total Protein Albumin Urine Color Urine Clarity Urine pH Ur Specific [place] Urine Protein Urine Glucose (UA) Urine Ketones Urine Occult Blood Urine Nitrate Urine Bilirubin Urine Urobilinogen Ur Leukocyte Esterase Urine WBC Urine Mucus Micro UA Comment Ur Microscopic Review Urine Culture Comments Nasal Screen MRSA (PCR) Stl C.difficile DNA Amp St C. diff Tox Epid 027 Urine Opiates Screen Ur Barbiturates Screen Ur Amphetamines Screen U Benzodiazepines Scrn Urine Cocaine Screen U Cannabinoids Screen Blood Type Antibody Screen 05/12/18 05/12/18 05/12/18 00:15 00:15 00:15 WBC 12.6 H RBC 3.04 L Hgb 9.5 L POC Hgb (Calc) Hct 26.1 L POC Hct MCV 85.8 MCH 31.4 MCHC 36.6 H RDW 14.3 Plt Count 238 MPV 7.3 Prelim Diff (Auto) Slide review pending Neut % (Auto) 81.9 H Lymph % (Auto) 8.7 L Sac % (Auto) 7.8 Eos % (Auto) 1.0 Baso % (Auto) 0.6 Neut # (Auto) 10.3 H Lymph # (Auto) 1.1 Sac # (Auto) 1.0 H Eos # (Auto) 0.1 Baso # (Auto) 0.1 WBC Differential Manual diff final Diff Scan Seg Neuts % (Manual) 81 H Band Neuts % (Manual) 1 Lymphocytes % (Manual) 9 Monocytes % (Manual) 7 Eosinophils % (Manual) Basophils % (Manual) 1 Metamyelocytes % (Man) Myelocytes % (Man) 1 H Abs Neuts (Manual) 10.5 H Differential Comment . Platelet Estimate Normal Platelet Morphology Normal Helmet Cells Occ H PT 11.0 INR 1.1 APTT 57.6 H D Fibrinogen 380 H POC Sodium Sodium 133 L POC Potassium Potassium 3.7 POC Chloride Chloride 100 Carbon Dioxide 25.2 Anion Gap 8 POC BUN BUN 17 Creatinine 0.68 POC Creatinine Estimated GFR Greater than 89 POC Glucose Random Glucose 116 H Hemoglobin A1c Calcium 7.5 L Phosphorus Magnesium Total Bilirubin 0.4 AST 18 ALT 28 Alkaline Phosphatase 66 Total Creatine Kinase 90 Troponin I Less than 0.02 L Total Protein 6.2 L Albumin 3.2 L Urine Color Urine Clarity Urine pH Ur Specific [place] Urine Protein Urine Glucose (UA) Urine Ketones Urine Occult Blood Urine Nitrate Urine Bilirubin Urine Urobilinogen Ur Leukocyte Esterase Urine WBC Urine Mucus Micro UA Comment Ur Microscopic Review Urine Culture Comments Nasal Screen MRSA (PCR) Stl C.difficile DNA Amp St C. diff Tox Epid 027 Urine Opiates Screen Ur Barbiturates Screen Ur Amphetamines Screen U Benzodiazepines Scrn Urine Cocaine Screen U Cannabinoids Screen Blood Type Antibody Screen 05/12/18 05/12/18 05/12/18 00:36 06:12 06:22 WBC RBC Hgb POC Hgb (Calc) Hct POC Hct MCV MCH MCHC RDW Plt Count MPV Prelim Diff (Auto) Neut % (Auto) Lymph % (Auto) Sac % (Auto) Eos % (Auto) Baso % (Auto) Neut # (Auto) Lymph # (Auto) Sac # (Auto) Eos # (Auto) Baso # (Auto) WBC Differential Diff Scan Seg Neuts % (Manual) Band Neuts % (Manual) Lymphocytes % (Manual) Monocytes % (Manual) Eosinophils % (Manual) Basophils % (Manual) Metamyelocytes % (Man) Myelocytes % (Man) Abs Neuts (Manual) Differential Comment Platelet Estimate Platelet Morphology Helmet Cells PT INR APTT Fibrinogen POC Sodium Sodium 133 L POC Potassium Potassium 3.9 POC Chloride Chloride 102 Carbon Dioxide 23.3 Anion Gap 8 POC BUN BUN 16 Creatinine 0.69 POC Creatinine Estimated GFR Greater than 89 POC Glucose Random Glucose 106 Hemoglobin A1c 5.8 Calcium 8.1 L Phosphorus Magnesium Total Bilirubin AST ALT Alkaline Phosphatase Total Creatine Kinase 92 Troponin I Total Protein Albumin Urine Color Urine Clarity Urine pH Ur Specific [place] Urine Protein Urine Glucose (UA) Urine Ketones Urine Occult Blood Urine Nitrate Urine Bilirubin Urine Urobilinogen Ur Leukocyte Esterase Urine WBC Urine Mucus Micro UA Comment Ur Microscopic Review Urine Culture Comments Nasal Screen MRSA (PCR) Not detected Stl C.difficile DNA Amp St C. diff Tox Epid 027 Urine Opiates Screen Ur Barbiturates Screen Ur Amphetamines Screen U Benzodiazepines Scrn Urine Cocaine Screen U Cannabinoids Screen Blood Type Antibody Screen 05/12/18 05/12/18 05/12/18 06:22 09:08 10:41 WBC RBC Hgb POC Hgb (Calc) Hct POC Hct MCV MCH MCHC RDW Plt Count MPV Prelim Diff (Auto) Neut % (Auto) Lymph % (Auto) Sac % (Auto) Eos % (Auto) Baso % (Auto) Neut # (Auto) Lymph # (Auto) Sac # (Auto) Eos # (Auto) Baso # (Auto) WBC Differential Diff Scan Seg Neuts % (Manual) Band Neuts % (Manual) Lymphocytes % (Manual) Monocytes % (Manual) Eosinophils % (Manual) Basophils % (Manual) Metamyelocytes % (Man) Myelocytes % (Man) Abs Neuts (Manual) Differential Comment Platelet Estimate Platelet Morphology Helmet Cells PT INR APTT 28.2 D 63.1 H D Fibrinogen POC Sodium Sodium POC Potassium Potassium POC Chloride Chloride Carbon Dioxide Anion Gap POC BUN BUN Creatinine POC Creatinine Estimated GFR POC Glucose 152 H Random Glucose Hemoglobin A1c Calcium Phosphorus Magnesium Total Bilirubin AST ALT Alkaline Phosphatase Total Creatine Kinase Troponin I Total Protein Albumin Urine Color Urine Clarity Urine pH Ur Specific [place] Urine Protein Urine Glucose (UA) Urine Ketones Urine Occult Blood Urine Nitrate Urine Bilirubin Urine Urobilinogen Ur Leukocyte Esterase Urine WBC Urine Mucus Micro UA Comment Ur Microscopic Review Urine Culture Comments Nasal Screen MRSA (PCR) Stl C.difficile DNA Amp St C. diff Tox Epid 027 Urine Opiates Screen Ur Barbiturates Screen Ur Amphetamines Screen U Benzodiazepines Scrn Urine Cocaine Screen U Cannabinoids Screen Blood Type Antibody Screen 05/12/18 05/12/18 05/12/18 11:33 13:05 23:38 WBC RBC Hgb POC Hgb (Calc) Hct POC Hct MCV MCH MCHC RDW Plt Count MPV Prelim Diff (Auto) Neut % (Auto) Lymph % (Auto) Sac % (Auto) Eos % (Auto) Baso % (Auto) Neut # (Auto) Lymph # (Auto) Sac # (Auto) Eos # (Auto) Baso # (Auto) WBC Differential Diff Scan Seg Neuts % (Manual) Band Neuts % (Manual) Lymphocytes % (Manual) Monocytes % (Manual) Eosinophils % (Manual) Basophils % (Manual) Metamyelocytes % (Man) Myelocytes % (Man) Abs Neuts (Manual) Differential Comment Platelet Estimate Platelet Morphology Helmet Cells PT INR APTT Fibrinogen POC Sodium Sodium POC Potassium Potassium POC Chloride Chloride Carbon Dioxide Anion Gap POC BUN BUN Creatinine POC Creatinine Estimated GFR POC Glucose 147 H 150 H Random Glucose Hemoglobin A1c Calcium Phosphorus Magnesium Total Bilirubin AST ALT Alkaline Phosphatase Total Creatine Kinase Troponin I Total Protein Albumin Urine Color Urine Clarity Urine pH Ur Specific [place] Urine Protein Urine Glucose (UA) Urine Ketones Urine Occult Blood Urine Nitrate Urine Bilirubin Urine Urobilinogen Ur Leukocyte Esterase Urine WBC Urine Mucus Micro UA Comment Ur Microscopic Review Urine Culture Comments Nasal Screen MRSA (PCR) Stl C.difficile DNA Amp Negative St C. diff Tox Epid 027 Negative Urine Opiates Screen Ur Barbiturates Screen Ur Amphetamines Screen U Benzodiazepines Scrn Urine Cocaine Screen U Cannabinoids Screen Blood Type Antibody Screen 05/13/18 05/13/18 05/13/18 04:36 04:36 04:36 WBC 12.7 H RBC 2.65 L Hgb 8.0 L POC Hgb (Calc) Hct 22.9 L POC Hct MCV 86.3 MCH 30.3 MCHC 35.1 RDW 14.6 Plt Count 247 MPV 7.2 Prelim Diff (Auto) Slide review pending Neut % (Auto) 76.2 H Lymph % (Auto) 13.7 Sac % (Auto) 8.3 H Eos % (Auto) 1.5 Baso % (Auto) 0.3 Neut # (Auto) 9.7 H Lymph # (Auto) 1.7 Sac # (Auto) 1.1 H Eos # (Auto) 0.2 Baso # (Auto) 0.0 WBC Differential Manual diff final Diff Scan Seg Neuts % (Manual) 77 H Band Neuts % (Manual) 2 Lymphocytes % (Manual) 14 Monocytes % (Manual) 3 Eosinophils % (Manual) 1 Basophils % (Manual) Metamyelocytes % (Man) 1 Myelocytes % (Man) 2 H Abs Neuts (Manual) 10.4 H Differential Comment . Platelet Estimate Normal Platelet Morphology Normal Helmet Cells PT INR APTT 135.4 H* D Fibrinogen POC Sodium Sodium 136 POC Potassium Potassium 3.7 POC Chloride Chloride 106 Carbon Dioxide 25.1 Anion Gap 5 POC BUN BUN 7 Creatinine 0.68 POC Creatinine Estimated GFR Greater than 89 POC Glucose Random Glucose 118 H Hemoglobin A1c Calcium 7.9 L Phosphorus 2.4 L Magnesium 2.1 Total Bilirubin 0.4 AST 17 ALT 26 Alkaline Phosphatase 53 Total Creatine Kinase Troponin I Total Protein 5.7 L Albumin 2.9 L Urine Color Urine Clarity Urine pH Ur Specific [place] Urine Protein Urine Glucose (UA) Urine Ketones Urine Occult Blood Urine Nitrate Urine Bilirubin Urine Urobilinogen Ur Leukocyte Esterase Urine WBC Urine Mucus Micro UA Comment Ur Microscopic Review Urine Culture Comments Nasal Screen MRSA (PCR) Stl C.difficile DNA Amp St C. diff Tox Epid 027 Urine Opiates Screen Ur Barbiturates Screen Ur Amphetamines Screen U Benzodiazepines Scrn Urine Cocaine Screen U Cannabinoids Screen Blood Type Antibody Screen 05/13/18 05/13/18 05:17 09:00 WBC RBC Hgb POC Hgb (Calc) Hct POC Hct MCV MCH MCHC RDW Plt Count MPV Prelim Diff (Auto) Neut % (Auto) Lymph % (Auto) Sac % (Auto) Eos % (Auto) Baso % (Auto) Neut # (Auto) Lymph # (Auto) Sac # (Auto) Eos # (Auto) Baso # (Auto) WBC Differential Diff Scan Seg Neuts % (Manual) Band Neuts % (Manual) Lymphocytes % (Manual) Monocytes % (Manual) Eosinophils % (Manual) Basophils % (Manual) Metamyelocytes % (Man) Myelocytes % (Man) Abs Neuts (Manual) Differential Comment Platelet Estimate Platelet Morphology Helmet Cells PT INR APTT 140.3 H* 31.8 H D Fibrinogen POC Sodium Sodium POC Potassium Potassium POC Chloride Chloride Carbon Dioxide Anion Gap POC BUN BUN Creatinine POC Creatinine Estimated GFR POC Glucose Random Glucose Hemoglobin A1c Calcium Phosphorus Magnesium Total Bilirubin AST ALT Alkaline Phosphatase Total Creatine Kinase Troponin I Total Protein Albumin Urine Color Urine Clarity Urine pH Ur Specific [place] Urine Protein Urine Glucose (UA) Urine Ketones Urine Occult Blood Urine Nitrate Urine Bilirubin Urine Urobilinogen Ur Leukocyte Esterase Urine WBC Urine Mucus Micro UA Comment Ur Microscopic Review Urine Culture Comments Nasal Screen MRSA (PCR) Stl C.difficile DNA Amp St C. diff Tox Epid 027 Urine Opiates Screen Ur Barbiturates Screen Ur Amphetamines Screen U Benzodiazepines Scrn Urine Cocaine Screen U Cannabinoids Screen Blood Type Antibody Screen Result Diagrams: 05/13/18 04:36 05/13/18 04:36 Microbiology: Microbiology 05/12/18 13:05 Stool Occult Blood ([facility]AS) - Final Stool Hemoccult positive Imaging: Head CTA 05/11/18 15:17 CONCLUSION: 1. Left internal carotid occlusion, similar to what was seen on 04/17/2018. . Neck CTA 05/11/18 15:17 CONCLUSION: Chronic occlusion of the left internal carotid artery. Previous right endarterectomy without evidence of recurrent stenosis. 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 Head CT 05/12/18 00:16 CONCLUSION: 1. Chronic small vessel ischemic change. No acute intracranial abnormality. Report was called by [Dr. Solorzano to Dr. Serrato and to Dr. Tilley at 0033 hours. There is a delay in interpretation of this study due to an issue with the [employer] system. ] Chest X-Ray 05/12/18 02:51 CONCLUSION: Central line without pneumothorax. Procedures: 05/12/2018: Left IJ central line placement Assessment and Plan - Disease Oriented Problem List (1) Hypertension (2) Internal carotid artery stenosis (3) Acute CVA (cerebrovascular accident) (4) BPH (benign prostatic hyperplasia) - Symptom Scale (1) Pain 0-10 Scale: Unable to quantify (2) Debility, unspecified 0-10 Scale: Unable to quantify Pertinent Non-Medical Issues: Psychosocial: Patient is originally from [place]. He served in the [employer] during the [place] [employer]. He has been to his ([place]) for approximately 61 years. 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 After retiring, they moved to [place] and the patient worked part-time with his son at [employer]. Together they have 2 sons (Noah and Néstor) who both live locally. Patient and his were living their with son, Roland , until the patient's initial stroke in April, Spiritual: Hoahaoism Legal: Family believes the patient may have completed written advanced directives and will bring copies of these documents if they are found. Per [place] statutes, in the absence of written advanced directives healthcare proxy decision making falls to the patient's . Family is making decisions together at this time. Ethical issues impacting care: No known ethical issues impacting care at this time. Important Contacts: Haydee Barber, : [phone] Noah Barber, son: [phone] Néstor Barber, son: [phone] Prognosis: Patient is an 83-year-old male status post CVA x2. Patient's initial stroke was approximately 3 weeks ago in April, with subsequent right-sided deficits , dysarthria and intermittent confusion. He was discharged to a SNF for rehab but returned to the ED on 05/11/2018 with new symptoms. Patient is at risk for further decline secondary his advanced age and recurrent CVAs with residual deficits. Code Status: No Code DNR Plan: * NO CODE/DNR * Decision-making: Family believes the patient may have completed written advanced directives and will bring copies of these documents if they are found. Per [place] statutes, in the absence of written advanced directives healthcare proxy decision making falls to the patient's . Family is making decisions together at this time. * Discussed with Dr. Camarillo * Spoke with patient's at bedside, medical update provided. Answers questions to the best my ability. * Patient's and 2 sons state the patient would not want cardiopulmonary resuscitation in the event that his condition deteriorated. Patient agrees with his family stating he would not want CPR. However, his insight/judgement related to his medical conditions is limited; I would not recommend allowing the patient to make medical decisions on his own at this time. CODE STATUS changed to NO CODE/DNR. Goals aggressive up to the point of cardiopulmonary resuscitation * Symptom management-pain: Patient showing no signs or symptoms of pain on exam. 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 Continue to monitor. * Symptom management-debility: Patient was independent, healthy and active prior to his initial stroke in April,. He was discharged to an SNF with residual right-sided weakness, dysarthria and intermittent confusion. Functional status was slowly improving with rehab until 05/11/2018 when the patient developed new/additional deficits. * Palliative care will continue to follow this patient throughout his hospitalization to build rapport, assist with symptom managment and goal clarification. Attestation Attestation: To help prompt me to consider important information that might be impacting today's encounter and assessment, information from prior notes written by myself or my colleagues may have been "brought forward" into today's note. My signature on this note, however, is an attestation that I personally performed the exam, history, and/or decision-making noted today, and, unless otherwise indicated, the interactions with patient, family, and staff as well as the review of records all occurred today. I also attest that the listed assessment and stated plan reflect my best clinical judgment today based on the combination of historical information, prior notes, and today's exam/ interactions. When time spent is documented, it refers only to time spent today by the signer, or if indicated, combined time spent today by collaborating physician/nurse practitioner.
--- NOTE | 2018-05-13 17:55 | GIPROC ---
[facility] [address] [facility]. [facility], [address] EGD PROCEDURE REPORT EXAM DATE: 05/13/2018 PATIENT NAME: Christopher Barber MR #: [id number] BIRTHDATE: 1935 ATTENDING: Rupesh Ramires MD ORDER #: [id number] [employer]ER: Brian Hobbs and [place] Garrido STATUS: inpatient INDICATIONS: The patient is a 83 yr old male here for an EGD due to melena PROCEDURE PERFORMED: EGD, diagnostic MEDICATIONS: Per Anesthesia and None. TOPICAL ANESTHETIC: none CONSENT: The patient understands the risks and benefits of the procedure and understands that these risks include, but are not limited to: sedation, allergic reaction, infection, perforation and/or bleeding. Alternative means of evaluation and treatment include, among others: physical exam, x-rays, and/or surgical intervention. The patient elects to proceed with this endoscopic procedure. medical equipment was checked for proper function. Hand hygiene and appropriate measures for infection prevention was taken. After the risks, benefits and alternatives of the procedure were thoroughly explained, Informed consent was verified, confirmed and timeout was successfully executed by the treatment team. The patient was anesthetized with topical anesthesia and the [employer] [id number] endoscope was introduced through the mouth and advanced to the second portion of the duodenum. Retroflexed views revealed a hiatal hernia The gastroscope was then slowly withdrawn and removed. ESOPHAGUS: There was LA Class B esophagitis noted. 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 The stricture was traversable. STOMACH: The mucosa of the stomach appeared normal. Erosive duodenitis. DUODENUM: Moderate duodenal inflammation was found in the duodenal bulb. ADVERSE EVENTS: There were no complications. IMPRESSIONS: 1. There was LA Class B esophagitis noted 2. 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 The mucosa of the stomach appeared normal 4. Erosive duodenitis 5. Duodenal inflammation was found in the duodenal bulb 6. Retroflexed views revealed a hiatal hernia RECOMMENDATIONS: PROTONIX PATIENT CONDITION: stable DISPOSITION: Inpatient REPEAT EXAM: Return as needed for EGD Rupesh Ramires MD eSigned: Rupesh Ramires MD 05/13/2018 5:54 PM cc: PATIENT NAME: Christopher Barber MR#: [id number]
[2018-05-13 20:25] LABS: Hematocrit 22.5 % (39.0-51.0); Hemoglobin 7.8 gm/dL (13.0-17.0)
[2018-05-14] MEDS: Insulin NovoLOG Aspart Correctional Sugar Inj SQ SCH ×3 (00:42→12:13)
[2018-05-14] MEDS: Sod Chloride 0.9% Inj 1,000 ML IV.CONT SCH ×5 (00:43→19:26)
[2018-05-14 03:52] LABS: Baso # (Auto) 0.1 th/mm3 (0.0-0.2); Baso % (Auto) 0.5 % (0.0-2.0); Eos # (Auto) 0.3 th/mm3 (0.0-0.4); Eos % (Auto) 2.7 % (0.0-4.0); Hemoglobin 7.9 gm/dL (13.0-17.0); Lymph # (Auto) 1.7 th/mm3 (1.0-4.8); Mean Corpuscular HGB Conc 35.8 % (32.0-36.0); Mean Corpuscular Volume 86.6 fL (80.0-100.0); Mean Platelet Volume 6.8 fL (7.0-11.0); Mono # (Auto) 0.9 th/mm3 (0.0-0.9); Mono % (Auto) 8.1 % (0.0-8.0); Neut # (Auto) 7.9 th/mm3 (1.8-7.7); Neut % (Auto) 72.7 % (16.0-70.0); Platelet Count 222 th/mm3 (150-450); Red Blood Count 2.54 mil/mm3 (4.50-5.90); Red Cell Distribution Width 14.3 % (11.6-17.2); White Blood Count 10.8 th/mm3 (4.0-11.0)
[2018-05-14 04:21] LABS: Platelet Estimate Normal (Normal); Platelet Morphology Normal (Normal); RBC Morphology Normal (Normal)
[2018-05-14 04:22] LABS: Anion Gap 7 meq/L (5-15); Aspartate Aminotransferase 16 U/L (15-37); Blood Urea Nitrogen 7 mg/dL (7-18); Calcium 8.2 mg/dL (8.5-10.1); Carbon Dioxide 25.1 meq/L (21.0-32.0); Chloride 104 meq/L (98-107); Glomerular Filtration Rate Greater Than 89 mL/min (>89); Glucose,Random 100 mg/dL (74-106); Magnesium 2.1 mg/dL (1.5-2.5); Potassium 3.6 meq/L (3.5-5.1); Sodium 136 meq/L (136-145)
[2018-05-14 04:24] LABS: Alanine Aminotransferase 22 U/L (12-78); Phosphorus 2.9 mg/dL (2.5-4.9)
[2018-05-14 04:25] LABS: Alkaline Phosphatase 54 U/L (45-117); Total Protein 5.8 g/dL (6.4-8.2)
[2018-05-14] MEDS: Pantoprazole Inj 40 MG Vial IV.PUSH SCH ×2 (09:30→22:15)
--- NOTE | 2018-05-14 10:28 | P.PNGI ---
Subjective Interval history: Eyes open response to a few simple questions, family in room assisting with history and information current hemoglobin 7.9 Randomly moves extremities, mild altered mental status probably related to acute hospital stay, age, and current medical issues, CVA <Emmanuelle Santos - Last Filed: 05/14/18 10:32> Physical Exam Vital signs: Vital Signs 05/13/18 12:01 05/13/18 12:16 05/13/18 12:28 Temperature Pulse Rate 95 H 108 H 95 H Respiratory Rate 19 49 H 26 H Blood Pressure 100/57 L 102/55 L 100/58 L Pulse Oximetry 98 99 98 05/13/18 12:31 05/13/18 12:46 05/13/18 13:00 Temperature Pulse Rate 105 H 90 85 Respiratory Rate 26 H 28 H 15 Blood Pressure 101/55 L 96/51 L Pulse Oximetry 98 99 100 05/13/18 13:01 05/13/18 13:11 05/13/18 13:16 Temperature Pulse Rate 81 80 84 Respiratory Rate 18 16 21 Blood Pressure 100/59 L 110/62 110/55 L Pulse Oximetry 99 99 99 05/13/18 13:31 05/13/18 13:44 05/13/18 13:46 Temperature Pulse Rate 90 92 H 95 H Respiratory Rate 24 17 24 Blood Pressure 122/66 126/68 132/70 Pulse Oximetry 99 99 99 05/13/18 14:00 05/13/18 14:01 05/13/18 14:16 Temperature Pulse Rate 94 H 95 H 99 H Respiratory Rate 34 H 39 H 26 H Blood Pressure 138/74 124/75 Pulse Oximetry 98 98 98 05/13/18 14:31 05/13/18 14:46 05/13/18 15:00 Temperature Pulse Rate 93 H 90 96 H Respiratory Rate 21 19 22 Blood Pressure 128/75 122/69 Pulse Oximetry 98 96 98 05/13/18 15:01 05/13/18 15:16 05/13/18 15:31 Temperature Pulse Rate 96 H 92 H 92 H Respiratory Rate 24 16 23 Blood Pressure 137/72 138/76 139/76 Pulse Oximetry 97 98 98 05/13/18 15:46 05/13/18 16:00 05/13/18 16:01 Temperature Pulse Rate 93 H 90 85 Respiratory Rate 27 H 29 H 26 H Blood Pressure 143/65 H 143/66 H Pulse Oximetry 98 97 98 05/13/18 16:16 05/13/18 16:31 05/13/18 16:46 Temperature Pulse Rate 82 81 82 Respiratory Rate 26 H 26 H 27 H Blood Pressure 140/67 119/60 136/65 Pulse Oximetry 99 98 99 05/13/18 17:01 05/13/18 17:16 05/13/18 17:20 Temperature Pulse Rate 104 H 98 H 101 H Respiratory Rate 26 H 23 Blood Pressure 152/87 H 150/81 H 160/71 H Pulse Oximetry 98 99 99 05/13/18 17:30 05/13/18 17:45 05/13/18 17:51 Temperature Pulse Rate 94 H 98 H 95 H Respiratory Rate Blood Pressure 160/89 H 165/95 H 137/82 Pulse Oximetry 100 100 100 05/13/18 18:00 05/13/18 18:15 05/13/18 18:45 Temperature Pulse Rate 99 H 97 H 99 H Respiratory Rate 23 26 H Blood Pressure 136/66 154/78 H 127/63 Pulse Oximetry 98 97 100 05/13/18 19:00 05/13/18 19:15 05/13/18 19:30 Temperature Pulse Rate 101 H 95 H 99 H Respiratory Rate 32 H 24 22 Blood Pressure 131/60 132/72 139/82 Pulse Oximetry 98 97 98 05/13/18 19:45 05/13/18 20:00 05/13/18 20:15 Temperature 98.5 F Pulse Rate 100 H 97 H 97 H Respiratory Rate 31 H 30 H 20 Blood Pressure 139/87 143/87 H 143/87 H Pulse Oximetry 98 98 99 05/13/18 20:30 05/13/18 20:45 05/13/18 21:00 Temperature Pulse Rate 93 H 93 H 88 Respiratory Rate 18 22 28 H Blood Pressure 145/68 H 138/63 124/59 L Pulse Oximetry 98 97 97 05/13/18 21:15 05/13/18 21:30 05/13/18 21:45 Temperature Pulse Rate 84 96 H 88 Respiratory Rate 31 H 23 26 H Blood Pressure 137/63 144/69 H 144/69 H Pulse Oximetry 95 100 100 05/13/18 22:00 05/13/18 22:15 05/13/18 22:19 Temperature Pulse Rate 98 H 101 H 91 H Respiratory Rate 30 H 20 19 Blood Pressure 170/81 H 195/80 H 136/63 Pulse Oximetry 100 100 100 05/13/18 22:30 05/13/18 22:45 05/13/18 23:00 Temperature Pulse Rate 96 H 92 H 94 H Respiratory Rate 29 H 18 19 Blood Pressure 137/70 137/67 127/62 Pulse Oximetry 100 99 98 05/13/18 23:15 05/13/18 23:29 05/13/18 23:45 Temperature Pulse Rate 97 H 93 H 86 Respiratory Rate 29 H 23 20 Blood Pressure 132/69 143/72 H 135/65 Pulse Oximetry 100 99 100 05/14/18 00:00 05/14/18 00:15 05/14/18 00:29 Temperature 98.4 F Pulse Rate 99 H 86 79 Respiratory Rate 39 H 22 28 H Blood Pressure 144/67 H 126/58 L 123/66 Pulse Oximetry 99 96 100 05/14/18 00:45 05/14/18 01:00 05/14/18 01:15 Temperature Pulse Rate 79 82 86 Respiratory Rate 31 H 16 21 Blood Pressure 121/61 125/84 137/71 Pulse Oximetry 100 100 100 05/14/18 01:29 05/14/18 01:45 05/14/18 02:00 Temperature Pulse Rate 79 106 H 80 Respiratory Rate 22 50 H 22 Blood Pressure 133/66 179/96 H 124/64 Pulse Oximetry 100 100 100 05/14/18 02:15 05/14/18 02:30 05/14/18 02:45 Temperature Pulse Rate 83 81 80 Respiratory Rate 20 19 22 Blood Pressure 121/61 126/69 153/83 H Pulse Oximetry 88 L 100 100 05/14/18 03:00 05/14/18 03:15 05/14/18 03:24 Temperature Pulse Rate 77 76 87 Respiratory Rate 20 23 13 Blood Pressure 135/62 162/108 H 152/75 H Pulse Oximetry 100 100 98 05/14/18 03:30 05/14/18 03:45 05/14/18 04:00 Temperature Pulse Rate 84 89 81 Respiratory Rate 19 19 17 Blood Pressure 150/71 H 145/66 H 107/58 L Pulse Oximetry 100 100 100 05/14/18 04:15 05/14/18 04:30 05/14/18 04:45 Temperature 98.6 F Pulse Rate 86 83 81 Respiratory Rate 19 19 21 Blood Pressure 107/74 141/76 H 149/66 H Pulse Oximetry 99 100 100 05/14/18 05:00 05/14/18 05:15 05/14/18 05:30 Temperature Pulse Rate 75 83 80 Respiratory Rate 25 H 24 19 Blood Pressure 149/70 H 144/70 H 148/64 H Pulse Oximetry 100 100 100 05/14/18 05:45 05/14/18 06:00 05/14/18 06:15 Temperature Pulse Rate 72 75 75 Respiratory Rate 21 21 16 Blood Pressure 151/74 H 131/63 131/67 Pulse Oximetry 100 100 100 Intake & Output 05/13/18 05/14/18 05/14/18 18:59 06:59 18:59 Intake Total 2125 / 2125 1999 Output Total 1525 / 1525 1255 / 1255 Balance 600 / 600 745 / 745 Weight 77.2 kg Intake: IV 1655 / 1655 1999 Neosynephrine Inj 160 MG In NS 500 / 500 Inj 484 ML @ 40 MCG/MIN 7.5 mls /hr IV.CONT TITRATE PRN Rx#: [id number] NS Inj 1,000 ML @ 100 mls/hr IV 1000 / 1000 1999 .CONT .Q10H DIONISIO Rx#:[id number] Potassium Phosphate Inj 15 MMOL 155 / 155 In NS Inj 150 ML @ 38.75 mls/ hr IV.SIG ONCE ONE Rx#:[id number] Oral 420 / 420 Anesthesia Amount 50 / 50 Output: Urine Amount (Catheter) 1525 / 1525 1255 / 1255 Condom 1525 / 1525 1255 / 1255 Other: Date of Last Bowel Movement 05/12/18 05/12/18 # Bowel Movements 0 0 - Constitutional mild distress, cachectic, disheveled - Routine HEENT Exam Head: Present: normocephalic ENT: Present: mucous membranes moist - Routine Neck Exam Present: supple - Routine Respiratory Exam Present: decreased breath sounds - Routine Cardiovascular Exam Present: S1, S2 - Routine Abdominal Exam Present: soft (Round, soft, bowel sounds present, no abdominal pain no obvious distention) - Routine Skin Exam Present: intact, pallor - Routine Neurological Exam Present: altered mental status - Urinary Catheter Management Condom Cath placed during this visit: no Reason for continuing: Hourly intake/output <Emmanuelle Santos M - Last Filed: 05/14/18 10:32> Vital signs: Vital Signs 05/13/18 18:45 05/13/18 19:00 05/13/18 19:15 Temperature Pulse Rate 99 H 101 H 95 H Respiratory Rate 26 H 32 H 24 Blood Pressure 127/63 131/60 132/72 Pulse Oximetry 100 98 97 05/13/18 19:30 05/13/18 19:45 05/13/18 20:00 Temperature 98.5 F Pulse Rate 99 H 100 H 97 H Respiratory Rate 22 31 H 30 H Blood Pressure 139/82 139/87 143/87 H Pulse Oximetry 98 98 98 05/13/18 20:15 05/13/18 20:30 05/13/18 20:45 Temperature Pulse Rate 97 H 93 H 93 H Respiratory Rate 20 18 22 Blood Pressure 143/87 H 145/68 H 138/63 Pulse Oximetry 99 98 97 05/13/18 21:00 05/13/18 21:15 05/13/18 21:30 Temperature Pulse Rate 88 84 96 H Respiratory Rate 28 H 31 H 23 Blood Pressure 124/59 L 137/63 144/69 H Pulse Oximetry 97 95 100 05/13/18 21:45 05/13/18 22:00 05/13/18 22:15 Temperature Pulse Rate 88 98 H 101 H Respiratory Rate 26 H 30 H 20 Blood Pressure 144/69 H 170/81 H 195/80 H Pulse Oximetry 100 100 100 05/13/18 22:19 05/13/18 22:30 05/13/18 22:45 Temperature Pulse Rate 91 H 96 H 92 H Respiratory Rate 19 29 H 18 Blood Pressure 136/63 137/70 137/67 Pulse Oximetry 100 100 99 05/13/18 23:00 05/13/18 23:15 05/13/18 23:29 Temperature Pulse Rate 94 H 97 H 93 H Respiratory Rate 19 29 H 23 Blood Pressure 127/62 132/69 143/72 H Pulse Oximetry 98 100 99 05/13/18 23:45 05/14/18 00:00 05/14/18 00:15 Temperature 98.4 F Pulse Rate 86 99 H 86 Respiratory Rate 20 39 H 22 Blood Pressure 135/65 144/67 H 126/58 L Pulse Oximetry 100 99 96 05/14/18 00:29 05/14/18 00:45 05/14/18 01:00 Temperature Pulse Rate 79 79 82 Respiratory Rate 28 H 31 H 16 Blood Pressure 123/66 121/61 125/84 Pulse Oximetry 100 100 100 05/14/18 01:15 05/14/18 01:29 05/14/18 01:45 Temperature Pulse Rate 86 79 106 H Respiratory Rate 21 22 50 H Blood Pressure 137/71 133/66 179/96 H Pulse Oximetry 100 100 100 05/14/18 02:00 05/14/18 02:15 05/14/18 02:30 Temperature Pulse Rate 80 83 81 Respiratory Rate 22 20 19 Blood Pressure 124/64 121/61 126/69 Pulse Oximetry 100 88 L 100 05/14/18 02:45 05/14/18 03:00 05/14/18 03:15 Temperature Pulse Rate 80 77 76 Respiratory Rate 22 20 23 Blood Pressure 153/83 H 135/62 162/108 H Pulse Oximetry 100 100 100 05/14/18 03:24 05/14/18 03:30 05/14/18 03:45 Temperature Pulse Rate 87 84 89 Respiratory Rate 13 19 19 Blood Pressure 152/75 H 150/71 H 145/66 H Pulse Oximetry 98 100 100 05/14/18 04:00 05/14/18 04:15 05/14/18 04:30 Temperature 98.6 F Pulse Rate 81 86 83 Respiratory Rate 17 19 19 Blood Pressure 107/58 L 107/74 141/76 H Pulse Oximetry 100 99 100 05/14/18 04:45 05/14/18 05:00 05/14/18 05:15 Temperature Pulse Rate 81 75 83 Respiratory Rate 21 25 H 24 Blood Pressure 149/66 H 149/70 H 144/70 H Pulse Oximetry 100 100 100 05/14/18 05:30 05/14/18 05:45 05/14/18 06:00 Temperature Pulse Rate 80 72 75 Respiratory Rate 19 21 21 Blood Pressure 148/64 H 151/74 H 131/63 Pulse Oximetry 100 100 100 05/14/18 06:15 05/14/18 07:00 05/14/18 07:14 Temperature Pulse Rate 75 86 75 Respiratory Rate 16 21 17 Blood Pressure 131/67 138/65 Pulse Oximetry 100 95 94 L 05/14/18 07:15 05/14/18 07:29 05/14/18 07:30 Temperature Pulse Rate 74 74 73 Respiratory Rate 16 16 15 Blood Pressure 134/66 Pulse Oximetry 97 97 96 05/14/18 07:45 05/14/18 08:00 05/14/18 08:15 Temperature Pulse Rate 74 74 81 Respiratory Rate 16 19 22 Blood Pressure 125/60 139/67 139/72 Pulse Oximetry 97 99 98 05/14/18 08:28 05/14/18 08:29 05/14/18 08:30 Temperature 98.3 F Pulse Rate 79 79 Respiratory Rate 15 19 Blood Pressure 137/71 Pulse Oximetry 98 96 96 05/14/18 08:45 05/14/18 09:00 05/14/18 09:15 Temperature Pulse Rate 75 74 84 Respiratory Rate 21 14 20 Blood Pressure 145/67 H 137/71 141/78 H Pulse Oximetry 98 99 99 05/14/18 09:29 05/14/18 09:30 05/14/18 09:45 Temperature Pulse Rate 96 H 90 88 Respiratory Rate 25 H 22 29 H Blood Pressure 159/80 H 164/80 H Pulse Oximetry 97 99 99 05/14/18 10:00 05/14/18 10:05 05/14/18 10:15 Temperature Pulse Rate 90 87 90 Respiratory Rate 22 23 21 Blood Pressure 142/92 H 145/96 H Pulse Oximetry 98 98 97 05/14/18 10:29 05/14/18 10:30 05/14/18 10:44 Temperature Pulse Rate 83 82 90 Respiratory Rate 15 15 22 Blood Pressure 136/66 140/77 Pulse Oximetry 97 96 97 05/14/18 10:45 05/14/18 11:00 05/14/18 11:15 Temperature Pulse Rate 88 90 96 H Respiratory Rate 17 20 37 H Blood Pressure 143/78 H 139/76 Pulse Oximetry 97 98 99 05/14/18 11:29 05/14/18 11:30 05/14/18 11:44 Temperature Pulse Rate 90 90 91 H Respiratory Rate 16 25 H 16 Blood Pressure 139/75 138/73 Pulse Oximetry 98 97 97 05/14/18 11:45 05/14/18 12:00 05/14/18 12:15 Temperature 98.6 F Pulse Rate 90 96 H 92 H Respiratory Rate 15 18 26 H Blood Pressure 135/69 122/63 Pulse Oximetry 97 98 100 05/14/18 12:30 05/14/18 12:45 05/14/18 13:00 Temperature Pulse Rate 90 81 81 Respiratory Rate 19 21 30 H Blood Pressure 88/54 L Pulse Oximetry 99 98 98 05/14/18 13:15 05/14/18 13:30 05/14/18 13:45 Temperature Pulse Rate 90 93 H 95 H Respiratory Rate 21 19 20 Blood Pressure 94/54 L 122/68 128/67 Pulse Oximetry 68 L 98 97 05/14/18 14:00 05/14/18 14:15 05/14/18 14:30 Temperature Pulse Rate 93 H 93 H 95 H Respiratory Rate 27 H 19 21 Blood Pressure 135/70 132/69 135/66 Pulse Oximetry 97 96 97 05/14/18 14:45 05/14/18 15:00 05/14/18 15:15 Temperature Pulse Rate 84 79 94 H Respiratory Rate 23 20 18 Blood Pressure 127/63 115/56 L Pulse Oximetry 97 98 96 05/14/18 15:30 05/14/18 15:45 05/14/18 16:00 Temperature Pulse Rate 102 H 93 H 83 Respiratory Rate 31 H 18 17 Blood Pressure 140/79 126/65 123/68 Pulse Oximetry 98 98 99 05/14/18 16:15 05/14/18 16:30 05/14/18 16:45 Temperature Pulse Rate 79 79 82 Respiratory Rate 21 26 H 15 Blood Pressure 128/72 126/66 131/65 Pulse Oximetry 98 98 97 05/14/18 17:00 05/14/18 17:28 05/14/18 17:44 Temperature 98.3 F 98.5 F Pulse Rate 77 93 H 95 H Respiratory Rate 20 18 18 Blood Pressure 128/64 123/69 124/82 Pulse Oximetry 97 97 94 L 05/14/18 18:15 Temperature 98.5 F Pulse Rate 85 Respiratory Rate 18 Blood Pressure 138/85 Pulse Oximetry 96 Intake & Output 05/13/18 05/14/18 05/14/18 18:59 06:59 18:59 Intake Total 2125 / 2125 1999 1350 / 1350 Output Total 1525 / 1525 1255 / 1255 1400 / 1400 Balance 600 / 600 745 / 745 -50 / -50 Weight 77.2 kg Intake: IV 1655 / 1655 1999 1250 / 1250 Heparin/D5W 25,000 U/250 mL 25, 250 / 250 000 unit In 250 ml @ Per Protocol IV.CONT TITRATE PRN Rx #:[id number] Neosynephrine Inj 160 MG In NS 500 / 500 Inj 484 ML @ 40 MCG/MIN 7.5 mls /hr IV.CONT TITRATE PRN Rx#: [id number] NS Inj 1,000 ML @ 100 mls/hr IV 1000 / 1000 2000 / 2000 1000 / 1000 .CONT .Q10H DIONISIO Rx#:[id number] Potassium Phosphate Inj 15 MMOL 155 / 155 In NS Inj 150 ML @ 38.75 mls/ hr IV.SIG ONCE ONE Rx#:[id number] Oral 420 / 420 100 / 100 Anesthesia Amount 50 / 50 Intake (Blood Product) Amt 0 / 0 Rbc As-3 Leukoreduced Unit 0 / 0 [id number] Output: Urine Amount (Catheter) 1525 / 1525 1255 / 1255 1400 / 1400 Condom 1525 / 1525 1255 / 1255 1400 / 1400 Other: Date of Last Bowel Movement 05/12/18 05/12/18 05/12/18 # Bowel Movements 0 0 0 - Urinary Catheter Management Condom Cath placed during this visit: no <Patricia Sun - Last Filed: 05/14/18 18:42> Results - Labs CBC & Chem 7: 05/14/18 03:40 05/14/18 03:40 Laboratory Results - last 24 hr 05/13/18 05/13/18 05/13/18 20:05 20:05 23:25 WBC RBC Hgb 7.8 L Hct 22.5 L MCV MCH MCHC RDW Plt Count MPV Prelim Diff (Auto) Neut % (Auto) Lymph % (Auto) Norman % (Auto) Eos % (Auto) Baso % (Auto) Neut # (Auto) Lymph # (Auto) Norman # (Auto) Eos # (Auto) Baso # (Auto) WBC Differential Diff Scan Differential Comment Platelet Estimate Platelet Morphology RBC Morphology APTT 29.8 Sodium Potassium Chloride Carbon Dioxide Anion Gap BUN Creatinine Estimated GFR POC Glucose 112 H Random Glucose Calcium Phosphorus Magnesium Total Bilirubin AST ALT Alkaline Phosphatase Total Protein Albumin 05/14/18 05/14/18 05/14/18 03:40 03:40 03:40 WBC 10.8 RBC 2.54 L Hgb 7.9 L Hct 22.0 L MCV 86.6 MCH 31.0 MCHC 35.8 RDW 14.3 Plt Count 222 MPV 6.8 L Prelim Diff (Auto) Slide review pending Neut % (Auto) 72.7 H Lymph % (Auto) 16.0 Norman % (Auto) 8.1 H Eos % (Auto) 2.7 Baso % (Auto) 0.5 Neut # (Auto) 7.9 H Lymph # (Auto) 1.7 Norman # (Auto) 0.9 Eos # (Auto) 0.3 Baso # (Auto) 0.1 WBC Differential . Diff Scan Auto diff confirmed Differential Comment . Platelet Estimate Normal Platelet Morphology Normal RBC Morphology Normal APTT 81.2 H D Sodium 136 Potassium 3.6 Chloride 104 Carbon Dioxide 25.1 Anion Gap 7 BUN 7 Creatinine 0.68 Estimated GFR Greater than 89 POC Glucose Random Glucose 100 Calcium 8.2 L Phosphorus 2.9 Magnesium 2.1 Total Bilirubin 0.5 AST 16 ALT 22 Alkaline Phosphatase 54 Total Protein 5.8 L Albumin 3.0 L 05/14/18 05:00 WBC RBC Hgb Hct MCV MCH MCHC RDW Plt Count MPV Prelim Diff (Auto) Neut % (Auto) Lymph % (Auto) Norman % (Auto) Eos % (Auto) Baso % (Auto) Neut # (Auto) Lymph # (Auto) Norman # (Auto) Eos # (Auto) Baso # (Auto) WBC Differential Diff Scan Differential Comment Platelet Estimate Platelet Morphology RBC Morphology APTT 53.4 H D Sodium Potassium Chloride Carbon Dioxide Anion Gap BUN Creatinine Estimated GFR POC Glucose Random Glucose Calcium Phosphorus Magnesium Total Bilirubin AST ALT Alkaline Phosphatase Total Protein Albumin <Emmanuelle Santos - Last Filed: 05/14/18 10:32> - Labs CBC & Chem 7: 05/14/18 03:40 05/14/18 03:40 Laboratory Results - last 24 hr 05/13/18 05/13/18 05/13/18 20:05 20:05 23:25 WBC RBC Hgb 7.8 L Hct 22.5 L MCV MCH MCHC RDW Plt Count MPV Prelim Diff (Auto) Neut % (Auto) Lymph % (Auto) Norman % (Auto) Eos % (Auto) Baso % (Auto) Neut # (Auto) Lymph # (Auto) Norman # (Auto) Eos # (Auto) Baso # (Auto) WBC Differential Diff Scan Differential Comment Platelet Estimate Platelet Morphology RBC Morphology APTT 29.8 Sodium Potassium Chloride Carbon Dioxide Anion Gap BUN Creatinine Estimated GFR POC Glucose 112 H Random Glucose Calcium Phosphorus Magnesium Total Bilirubin AST ALT Alkaline Phosphatase Total Protein Albumin Blood Type Antibody Screen MTS Gel Crossmatch 05/14/18 05/14/18 05/14/18 03:40 03:40 03:40 WBC 10.8 RBC 2.54 L Hgb 7.9 L Hct 22.0 L MCV 86.6 MCH 31.0 MCHC 35.8 RDW 14.3 Plt Count 222 MPV 6.8 L Prelim Diff (Auto) Slide review pending Neut % (Auto) 72.7 H Lymph % (Auto) 16.0 Norman % (Auto) 8.1 H Eos % (Auto) 2.7 Baso % (Auto) 0.5 Neut # (Auto) 7.9 H Lymph # (Auto) 1.7 Norman # (Auto) 0.9 Eos # (Auto) 0.3 Baso # (Auto) 0.1 WBC Differential . Diff Scan Auto diff confirmed Differential Comment . Platelet Estimate Normal Platelet Morphology Normal RBC Morphology Normal APTT 81.2 H D Sodium 136 Potassium 3.6 Chloride 104 Carbon Dioxide 25.1 Anion Gap 7 BUN 7 Creatinine 0.68 Estimated GFR Greater than 89 POC Glucose Random Glucose 100 Calcium 8.2 L Phosphorus 2.9 Magnesium 2.1 Total Bilirubin 0.5 AST 16 ALT 22 Alkaline Phosphatase 54 Total Protein 5.8 L Albumin 3.0 L Blood Type Antibody Screen MTS Gel Crossmatch 05/14/18 05/14/18 05/14/18 05:00 10:28 16:00 WBC RBC Hgb Hct MCV MCH MCHC RDW Plt Count MPV Prelim Diff (Auto) Neut % (Auto) Lymph % (Auto) Norman % (Auto) Eos % (Auto) Baso % (Auto) Neut # (Auto) Lymph # (Auto) Norman # (Auto) Eos # (Auto) Baso # (Auto) WBC Differential Diff Scan Differential Comment Platelet Estimate Platelet Morphology RBC Morphology APTT 53.4 H D 33.8 H D Sodium Potassium Chloride Carbon Dioxide Anion Gap BUN Creatinine Estimated GFR POC Glucose Random Glucose Calcium Phosphorus Magnesium Total Bilirubin AST ALT Alkaline Phosphatase Total Protein Albumin Blood Type O Negative Antibody Screen Negative MTS Gel Crossmatch See Detail 05/14/18 16:00 WBC RBC Hgb Hct MCV MCH MCHC RDW Plt Count MPV Prelim Diff (Auto) Neut % (Auto) Lymph % (Auto) Norman % (Auto) Eos % (Auto) Baso % (Auto) Neut # (Auto) Lymph # (Auto) Norman # (Auto) Eos # (Auto) Baso # (Auto) WBC Differential Diff Scan Differential Comment Platelet Estimate Platelet Morphology RBC Morphology APTT 55.6 H D Sodium Potassium Chloride Carbon Dioxide Anion Gap BUN Creatinine Estimated GFR POC Glucose Random Glucose Calcium Phosphorus Magnesium Total Bilirubin AST ALT Alkaline Phosphatase Total Protein Albumin Blood Type Antibody Screen MTS Gel Crossmatch - Imaging Impressions Abdomen/Pelvis CT 05/14/18 00:00 CONCLUSION: 1. No acute abnormality is identified to explain the clinical symptoms. Examination quality is mildly degraded by respiratory motion artifact. 2. 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 <Patricia Sun - Last Filed: 05/14/18 18:42> Assessment and Plan (1) Heme positive stool Status: Acute Code(s): R19.5 - Other fecal abnormalities - Plan Patient is an 83-year-old male who presented to the emergency department at [facility] as a stroke alert. Patient medical history significant for acute CVA, hypertension, or carotid artery stenosis, dysarthria and BPH. Patient suffered a stroke 3 weeks ago. Currently patient has right-sided weakness and aphasia. Patient currently on heparin drip and was on Plavix prior to admission. Last dose of Plavix noted 05/11/2018. Our service has been consulted to evaluate patient for heme positive stools. Upon consultation, patient spouse endorses that patient has had dark stools for the last 3-4 days while in the rehab center. She reports that he has had no complaints of nausea or vomiting but did endorse some lower abdominal discomfort. His spouse denies any known change in bowel habits. She denies knowledge of patient ever having had an EGD or colonoscopy in the past. Past medical history is significant for tonsillectomy as a child and right knee repair as an adult. She denies any known family history for gastrointestinal issues and states that patient does not smoke or use alcohol products Heme positive stools Spouse endorses onset of dark stools 3-4 days prior to admission. Patient post acute CVA currently on heparin infusion. Patient was on Plavix 75 mg p.o. daily. Last noted dose 05/11/2018. (05/11) hemoglobin 10.1 hematocrit 28.8 ,05/13/2018 hemoglobin 8.0 hematocrit 22.9 platelet count 247 INR 1.1. * BP presently 96/51 [place]-Synephrine infusing. 05/14/2018 patient is awake but randomly moves around in the bed answered a couple of simple questions but otherwise still appears to have some altered mental status. Questionable tolerance to nuclear medicine scan or bleeding scan. Off Plavix for now melena stools noted approximately 2 days ago but last stool noted brown soft semi-loose no obvious bleeding. Colonoscopy according to family was approximately [address] Walden, has not seen patient since. N.p.o. this a.m. and heparin drip has been held but cannot do colonoscopy today without prep. Family seems to want aggressive GI care if it will allow patient to have some quality of life. Will consider colonoscopy probable Wednesday as long as okay with neurology and BP remains systolic greater than 140. Status post EGD on 05/13/2018 there was LA Class B esophagitis noted. 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 The stricture was traversable. STOMACH: The mucosa of the stomach appeared normal. Erosive duodenitis. Could be contributing to drop in hemoglobin. No further melena stools noted DUODENUM: Moderate duodenal inflammation was found in the duodenal bulb. Hiatal hernia, Hemoglobin appears to be fairly stable at 7.9 for now Plan Diet continue cardiac diet as tolerated Monitor for any further melena stools Consider colonoscopy Wednesday, or in a.m. dependent on scheduling and input from neurology. Monitor labs Continue to hold Plavix but okay for heparin drip today Monitor for any bleeding and transfuse as needed PPI, Zofran as needed Okay for ASA 81 mg daily Bowel regimen as needed Supportive care Patient was seen per myself and Dr. Sun, note was written on her behalf <Emmanuelle Santos - Last Filed: 05/14/18 10:32> (1) Heme positive stool Status: Acute Code(s): R19.5 - Other fecal abnormalities - Attending Attestation seen, examined agree with above ct abdomen/pelvis-no intraabdominal bleeding colonoscopy when stable and cleared by neurology if active bleeding-bleeding scan transfuse prn discussed with rn and family <Patricia Sun - Last Filed: 05/14/18 18:42>
--- NOTE | 2018-05-14 12:37 | P.PNFP ---
Subjective Interval history: No acute events overnight. Patient remains confused. He has continued dysarthria and difficulty following commands. He is very confused today and does not know where he is, the year, and cannot fully state his name (likely due to dysarthria). Review of systems is unable to be completed secondary to mental status. <Luis Antonio Ann - 05/14/18 12:37> Results - Labs Result diagrams: 05/16/18 04:00 05/16/18 14:18 <Facundo Thomas - 05/16/18 15:21> Abnormal lab results 05/15/18 05/16/18 05/16/18 Range/Units 16:15 04:00 04:00 RBC 3.09 L (4.50-5.90) mil/mm3 Hgb 9.5 L (13.0-17.0) gm/dL Hct 27.0 L (39.0-51.0) % MPV 6.9 L (7.0-11.0) fL Neut % (Auto) 78.1 H (16.0-70.0) % Neut # (Auto) 8.0 H (1.8-7.7) th/mm3 APTT 62.5 H 65.9 H (23.4-31.7) sec Potassium (3.5-5.1) meq/L Calcium (8.5-10.1) mg/dL 05/16/18 Range/Units 04:00 RBC (4.50-5.90) mil/mm3 Hgb (13.0-17.0) gm/dL Hct (39.0-51.0) % MPV (7.0-11.0) fL Neut % (Auto) (16.0-70.0) % Neut # (Auto) (1.8-7.7) th/mm3 APTT (23.4-31.7) sec Potassium 3.3 L (3.5-5.1) meq/L Calcium 8.2 L (8.5-10.1) mg/dL Short CBC 05/16/18 Range/Units 04:00 WBC 10.2 (4.0-11.0) th/mm3 Hgb 9.5 L (13.0-17.0) gm/dL Hct 27.0 L (39.0-51.0) % Plt Count 212 (150-450) th/mm3 BMP 05/16/18 05/16/18 04:00 14:18 Sodium 137 Potassium 3.3 L 3.5 Chloride 104 Carbon Dioxide 23.3 BUN 11 Creatinine 0.73 Calcium 8.2 L <Facundo Thomas - 05/16/18 15:21> Abnormal lab results 05/13/18 05/13/18 05/14/18 Range/Units 20:05 23:25 03:40 RBC 2.54 L (4.50-5.90) mil/mm3 Hgb 7.8 L 7.9 L (13.0-17.0) gm/dL Hct 22.5 L 22.0 L (39.0-51.0) % MPV 6.8 L (7.0-11.0) fL Neut % (Auto) 72.7 H (16.0-70.0) % Banner % (Auto) 8.1 H (0.0-8.0) % Neut # (Auto) 7.9 H (1.8-7.7) th/mm3 APTT (23.4-31.7) sec POC Glucose 112 H (68-110) mg/dl Calcium (8.5-10.1) mg/dL Total Protein (6.4-8.2) g/dL Albumin (3.4-5.0) g/dL 05/14/18 05/14/18 05/14/18 Range/Units 03:40 03:40 05:00 RBC (4.50-5.90) mil/mm3 Hgb (13.0-17.0) gm/dL Hct (39.0-51.0) % MPV (7.0-11.0) fL Neut % (Auto) (16.0-70.0) % Banner % (Auto) (0.0-8.0) % Neut # (Auto) (1.8-7.7) th/mm3 APTT 81.2 H D 53.4 H D (23.4-31.7) sec POC Glucose (68-110) mg/dl Calcium 8.2 L (8.5-10.1) mg/dL Total Protein 5.8 L (6.4-8.2) g/dL Albumin 3.0 L (3.4-5.0) g/dL 05/14/18 Range/Units 10:28 RBC (4.50-5.90) mil/mm3 Hgb (13.0-17.0) gm/dL Hct (39.0-51.0) % MPV (7.0-11.0) fL Neut % (Auto) (16.0-70.0) % Banner % (Auto) (0.0-8.0) % Neut # (Auto) (1.8-7.7) th/mm3 APTT 33.8 H D (23.4-31.7) sec POC Glucose (68-110) mg/dl Calcium (8.5-10.1) mg/dL Total Protein (6.4-8.2) g/dL Albumin (3.4-5.0) g/dL Short CBC 05/13/18 05/14/18 Range/Units 20:05 03:40 WBC 10.8 (4.0-11.0) th/mm3 Hgb 7.8 L 7.9 L (13.0-17.0) gm/dL Hct 22.5 L 22.0 L (39.0-51.0) % Plt Count 222 (150-450) th/mm3 BMP 05/14/18 03:40 Sodium 136 Potassium 3.6 Chloride 104 Carbon Dioxide 25.1 BUN 7 Creatinine 0.68 Calcium 8.2 L Liver Function 05/14/18 Range/Units 03:40 Total Bilirubin 0.5 (0.2-1.0) mg/dL AST 16 (15-37) U/L ALT 22 (12-78) U/L Alkaline Phosphatase 54 (45-117) U/L Albumin 3.0 L (3.4-5.0) g/dL <Luis Antonio Ann - 05/14/18 12:37> Physical Exam Vital signs: Vital Signs 05/15/18 15:30 05/15/18 15:45 05/15/18 16:00 Temperature 98.0 F Pulse Rate 89 84 81 Respiratory Rate 15 16 14 Blood Pressure 133/82 124/58 L 125/61 Pulse Oximetry 96 97 98 05/15/18 16:15 05/15/18 16:30 05/15/18 16:45 Temperature Pulse Rate 83 76 77 Respiratory Rate 16 14 15 Blood Pressure 130/64 128/62 126/64 Pulse Oximetry 97 97 98 05/15/18 17:00 05/15/18 17:15 05/15/18 17:30 Temperature Pulse Rate 78 95 H 95 H Respiratory Rate 14 17 24 Blood Pressure 136/72 136/72 135/69 Pulse Oximetry 97 97 97 05/15/18 17:45 05/15/18 19:49 05/15/18 20:00 Temperature Pulse Rate 82 78 Respiratory Rate 16 Blood Pressure 125/61 Pulse Oximetry 96 97 100 05/15/18 23:15 05/15/18 23:30 05/15/18 23:45 Temperature 98.6 F Pulse Rate 82 78 84 Respiratory Rate 14 22 Blood Pressure 147/76 H 126/63 129/69 Pulse Oximetry 97 96 100 05/16/18 00:00 05/16/18 00:15 05/16/18 00:30 Temperature Pulse Rate 81 84 86 Respiratory Rate 23 22 22 Blood Pressure 127/66 132/68 131/61 Pulse Oximetry 99 98 96 05/16/18 00:45 05/16/18 01:00 05/16/18 01:15 Temperature Pulse Rate 101 H 80 80 Respiratory Rate 22 22 16 Blood Pressure 157/74 H 139/64 148/70 H Pulse Oximetry 99 98 96 05/16/18 01:30 05/16/18 01:45 05/16/18 02:00 Temperature Pulse Rate 82 87 85 Respiratory Rate 23 16 21 Blood Pressure 146/80 H 143/71 H 159/75 H Pulse Oximetry 97 98 100 05/16/18 02:15 05/16/18 02:30 05/16/18 02:45 Temperature Pulse Rate 80 91 H Respiratory Rate 23 20 18 Blood Pressure 140/62 139/63 130/66 Pulse Oximetry 96 97 97 05/16/18 03:00 05/16/18 03:15 05/16/18 03:30 Temperature Pulse Rate 84 89 90 Respiratory Rate 15 16 16 Blood Pressure 128/70 121/67 122/70 Pulse Oximetry 98 96 98 05/16/18 03:45 05/16/18 04:00 05/16/18 04:15 Temperature 98.3 F Pulse Rate 98 H 98 H 89 Respiratory Rate 22 16 15 Blood Pressure 156/86 H 157/66 H 141/65 H Pulse Oximetry 99 97 96 12/10/18 04:30 05/16/18 04:45 05/16/18 05:00 Temperature Pulse Rate 84 90 98 H Respiratory Rate 14 16 Blood Pressure 144/67 H 147/72 H 147/75 H Pulse Oximetry 98 100 100 05/16/18 05:15 05/16/18 06:45 05/16/18 07:00 Temperature Pulse Rate 81 100 H 95 H Respiratory Rate 24 25 H 21 Blood Pressure 146/79 H 168/74 H 143/72 H Pulse Oximetry 95 97 96 05/16/18 07:15 05/16/18 07:30 05/16/18 07:45 Temperature Pulse Rate 91 H 86 84 Respiratory Rate 17 21 22 Blood Pressure 138/64 141/67 H 141/64 H Pulse Oximetry 95 96 97 05/16/18 08:00 05/16/18 08:15 05/16/18 08:30 Temperature Pulse Rate 95 H 88 91 H Respiratory Rate 18 26 H 16 Blood Pressure 138/66 129/61 144/72 H Pulse Oximetry 97 97 98 05/16/18 08:31 05/16/18 08:45 05/16/18 09:00 Temperature Pulse Rate 88 86 Respiratory Rate 16 18 Blood Pressure 132/63 128/63 Pulse Oximetry 99 97 97 05/16/18 09:15 05/16/18 09:30 05/16/18 09:45 Temperature Pulse Rate 83 82 82 Respiratory Rate 27 H 25 H 26 H Blood Pressure 131/72 146/76 H 138/67 Pulse Oximetry 97 98 97 05/16/18 10:00 05/16/18 10:15 05/16/18 10:30 Temperature Pulse Rate 82 88 90 Respiratory Rate 27 H 16 17 Blood Pressure 140/70 151/78 H 151/81 H Pulse Oximetry 99 98 97 05/16/18 10:45 05/16/18 11:00 05/16/18 11:15 Temperature Pulse Rate 105 H 99 H 93 H Respiratory Rate 28 H 31 H 22 Blood Pressure 164/78 H 147/59 H 141/65 H Pulse Oximetry 98 96 97 05/16/18 11:30 05/16/18 11:45 05/16/18 12:00 Temperature 99.7 F H Pulse Rate 88 87 101 H Respiratory Rate 24 17 24 Blood Pressure 128/62 121/64 116/66 Pulse Oximetry 98 97 97 12/10/18 12:15 05/16/18 12:18 05/16/18 12:30 Temperature Pulse Rate 98 H 97 H 92 H Respiratory Rate 20 17 17 Blood Pressure 115/68 135/63 120/63 Pulse Oximetry 97 97 98 Intake & Output 05/15/18 05/16/18 05/16/18 18:59 06:59 18:59 Intake Total 1770 / 1770 1999 Output Total 650 / 650 1500 / 1500 Balance 1120 / 1120 500 / 500 Weight 78.5 kg Intake: IV 1350 / 1350 1999 Heparin/D5W 25,000 U/250 mL 25, 250 / 250 000 unit In 250 ml @ Per Protocol IV.CONT TITRATE PRN Rx #:[id number] Neosynephrine Inj 160 MG In NS 100 / 100 Inj 484 ML @ 40 MCG/MIN 7.5 mls /hr IV.CONT TITRATE PRN Rx#: [id number] NS Inj 1,000 ML @ 100 mls/hr IV 1000 / 1000 1999 .CONT .Q10H DIONISIO Rx#:[id number] Oral 420 / 420 Output: Urine Amount (Catheter) 650 / 650 1500 / 1500 Condom 650 / 650 1500 / 1500 Other: Date of Last Bowel Movement 05/12/18 05/12/18 05/12/18 # Bowel Movements 0 # Incontinent Bowel Movements 1 <Facundo Thomas - 05/16/18 15:21> Vital Signs 05/13/18 12:46 05/13/18 13:00 05/13/18 13:01 Temperature Pulse Rate 90 85 81 Respiratory Rate 28 H 15 18 Blood Pressure 96/51 L 100/59 L Pulse Oximetry 99 100 99 05/13/18 13:11 05/13/18 13:16 05/13/18 13:31 Temperature Pulse Rate 80 84 90 Respiratory Rate 16 21 24 Blood Pressure 110/62 110/55 L 122/66 Pulse Oximetry 99 99 99 05/13/18 13:44 05/13/18 13:46 05/13/18 14:00 Temperature Pulse Rate 92 H 95 H 94 H Respiratory Rate 17 24 34 H Blood Pressure 126/68 132/70 Pulse Oximetry 99 99 98 05/13/18 14:01 05/13/18 14:16 05/13/18 14:31 Temperature Pulse Rate 95 H 99 H 93 H Respiratory Rate 39 H 26 H 21 Blood Pressure 138/74 124/75 128/75 Pulse Oximetry 98 98 98 05/13/18 14:46 05/13/18 15:00 05/13/18 15:01 Temperature Pulse Rate 90 96 H 96 H Respiratory Rate 19 22 24 Blood Pressure 122/69 137/72 Pulse Oximetry 96 98 97 05/13/18 15:16 05/13/18 15:31 05/13/18 15:46 Temperature Pulse Rate 92 H 92 H 93 H Respiratory Rate 16 23 27 H Blood Pressure 138/76 139/76 143/65 H Pulse Oximetry 98 98 98 05/13/18 16:00 05/13/18 16:01 05/13/18 16:16 Temperature Pulse Rate 90 85 82 Respiratory Rate 29 H 26 H 26 H Blood Pressure 143/66 H 140/67 Pulse Oximetry 97 98 99 05/13/18 16:31 05/13/18 16:46 05/13/18 17:01 Temperature Pulse Rate 81 82 104 H Respiratory Rate 26 H 27 H Blood Pressure 119/60 136/65 152/87 H Pulse Oximetry 98 99 98 05/13/18 17:16 05/13/18 17:20 05/13/18 17:30 Temperature Pulse Rate 98 H 101 H 94 H Respiratory Rate 26 H 23 Blood Pressure 150/81 H 160/71 H 160/89 H Pulse Oximetry 99 99 100 05/13/18 17:45 05/13/18 17:51 05/13/18 18:00 Temperature Pulse Rate 98 H 95 H 99 H Respiratory Rate Blood Pressure 165/95 H 137/82 136/66 Pulse Oximetry 100 100 98 05/13/18 18:15 05/13/18 18:45 05/13/18 19:00 Temperature Pulse Rate 97 H 99 H 101 H Respiratory Rate 23 26 H 32 H Blood Pressure 154/78 H 127/63 131/60 Pulse Oximetry 97 100 98 05/13/18 19:15 05/13/18 19:30 05/13/18 19:45 Temperature Pulse Rate 95 H 99 H 100 H Respiratory Rate 24 22 31 H Blood Pressure 132/72 139/82 139/87 Pulse Oximetry 97 98 98 05/13/18 20:00 05/13/18 20:15 05/13/18 20:30 Temperature 98.5 F Pulse Rate 97 H 97 H 93 H Respiratory Rate 30 H 20 18 Blood Pressure 143/87 H 143/87 H 145/68 H Pulse Oximetry 98 99 98 05/13/18 20:45 05/13/18 21:00 05/13/18 21:15 Temperature Pulse Rate 93 H 88 84 Respiratory Rate 22 28 H 31 H Blood Pressure 138/63 124/59 L 137/63 Pulse Oximetry 97 97 95 05/13/18 21:30 05/13/18 21:45 05/13/18 22:00 Temperature Pulse Rate 96 H 88 98 H Respiratory Rate 23 26 H 30 H Blood Pressure 144/69 H 144/69 H 170/81 H Pulse Oximetry 100 100 100 05/13/18 22:15 05/13/18 22:19 05/13/18 22:30 Temperature Pulse Rate 101 H 91 H 96 H Respiratory Rate 20 19 29 H Blood Pressure 195/80 H 136/63 137/70 Pulse Oximetry 100 100 100 05/13/18 22:45 05/13/18 23:00 05/13/18 23:15 Temperature Pulse Rate 92 H 94 H 97 H Respiratory Rate 18 19 29 H Blood Pressure 137/67 127/62 132/69 Pulse Oximetry 99 98 100 05/13/18 23:29 05/13/18 23:45 05/14/18 00:00 Temperature 98.4 F Pulse Rate 93 H 86 99 H Respiratory Rate 23 20 39 H Blood Pressure 143/72 H 135/65 144/67 H Pulse Oximetry 99 100 99 05/14/18 00:15 05/14/18 00:29 05/14/18 00:45 Temperature Pulse Rate 86 79 79 Respiratory Rate 22 28 H 31 H Blood Pressure 126/58 L 123/66 121/61 Pulse Oximetry 96 100 100 05/14/18 01:00 05/14/18 01:15 05/14/18 01:29 Temperature Pulse Rate 82 86 79 Respiratory Rate 16 21 22 Blood Pressure 125/84 137/71 133/66 Pulse Oximetry 100 100 100 05/14/18 01:45 05/14/18 02:00 05/14/18 02:15 Temperature Pulse Rate 106 H 80 83 Respiratory Rate 50 H 22 20 Blood Pressure 179/96 H 124/64 121/61 Pulse Oximetry 100 100 88 L 05/14/18 02:30 05/14/18 02:45 05/14/18 03:00 Temperature Pulse Rate 81 80 77 Respiratory Rate 19 22 20 Blood Pressure 126/69 153/83 H 135/62 Pulse Oximetry 100 100 100 05/14/18 03:15 05/14/18 03:24 05/14/18 03:30 Temperature Pulse Rate 76 87 84 Respiratory Rate 23 13 19 Blood Pressure 162/108 H 152/75 H 150/71 H Pulse Oximetry 100 98 100 05/14/18 03:45 05/14/18 04:00 05/14/18 04:15 Temperature Pulse Rate 89 81 86 Respiratory Rate 19 17 19 Blood Pressure 145/66 H 107/58 L 107/74 Pulse Oximetry 100 100 99 05/14/18 04:30 05/14/18 04:45 05/14/18 05:00 Temperature 98.6 F Pulse Rate 83 81 75 Respiratory Rate 19 21 25 H Blood Pressure 141/76 H 149/66 H 149/70 H Pulse Oximetry 100 100 100 05/14/18 05:15 05/14/18 05:30 05/14/18 05:45 Temperature Pulse Rate 83 80 72 Respiratory Rate 24 19 21 Blood Pressure 144/70 H 148/64 H 151/74 H Pulse Oximetry 100 100 100 05/14/18 06:00 05/14/18 06:15 05/14/18 07:00 Temperature Pulse Rate 75 75 86 Respiratory Rate 21 16 21 Blood Pressure 131/63 131/67 Pulse Oximetry 100 100 95 05/14/18 07:14 05/14/18 07:15 05/14/18 07:29 Temperature Pulse Rate 75 74 74 Respiratory Rate 17 16 16 Blood Pressure 138/65 134/66 Pulse Oximetry 94 L 97 97 05/14/18 07:30 05/14/18 07:45 05/14/18 08:00 Temperature Pulse Rate 73 74 74 Respiratory Rate 15 16 19 Blood Pressure 125/60 139/67 Pulse Oximetry 96 97 99 05/14/18 08:15 05/14/18 08:29 05/14/18 08:30 Temperature 98.3 F Pulse Rate 81 79 79 Respiratory Rate 22 15 19 Blood Pressure 139/72 137/71 Pulse Oximetry 98 96 96 05/14/18 08:45 05/14/18 09:00 05/14/18 09:15 Temperature Pulse Rate 75 74 84 Respiratory Rate 21 14 20 Blood Pressure 145/67 H 137/71 141/78 H Pulse Oximetry 98 99 99 05/14/18 09:29 05/14/18 09:30 05/14/18 09:45 Temperature Pulse Rate 96 H 90 88 Respiratory Rate 25 H 22 29 H Blood Pressure 159/80 H 164/80 H Pulse Oximetry 97 99 99 05/14/18 10:00 05/14/18 10:05 05/14/18 10:15 Temperature Pulse Rate 90 87 90 Respiratory Rate 22 23 21 Blood Pressure 142/92 H 145/96 H Pulse Oximetry 98 98 97 05/14/18 10:29 05/14/18 10:30 05/14/18 10:44 Temperature Pulse Rate 83 82 90 Respiratory Rate 15 15 22 Blood Pressure 136/66 140/77 Pulse Oximetry 97 96 97 05/14/18 10:45 05/14/18 11:00 05/14/18 11:15 Temperature Pulse Rate 88 90 96 H Respiratory Rate 17 20 37 H Blood Pressure 143/78 H 139/76 Pulse Oximetry 97 98 99 05/14/18 11:29 05/14/18 11:30 05/14/18 11:44 Temperature Pulse Rate 90 90 91 H Respiratory Rate 16 25 H 16 Blood Pressure 139/75 138/73 Pulse Oximetry 98 97 97 05/14/18 11:45 05/14/18 12:00 Temperature 98.6 F Pulse Rate 90 96 H Respiratory Rate 15 18 Blood Pressure 135/69 Pulse Oximetry 97 98 Intake & Output 05/13/18 05/14/18 05/14/18 18:59 06:59 18:59 Intake Total 2125 / 2125 1999 Output Total 1525 / 1525 1255 / 1255 Balance 600 / 600 745 / 745 Weight 77.2 kg Intake: IV 1655 / 1655 1999 Neosynephrine Inj 160 MG In NS 500 / 500 Inj 484 ML @ 40 MCG/MIN 7.5 mls /hr IV.CONT TITRATE PRN Rx#: [id number] NS Inj 1,000 ML @ 100 mls/hr IV 1000 / 1000 1999 .CONT .Q10H DIONISIO Rx#:[id number] Potassium Phosphate Inj 15 MMOL 155 / 155 In NS Inj 150 ML @ 38.75 mls/ hr IV.SIG ONCE ONE Rx#:[id number] Oral 420 / 420 Anesthesia Amount 50 / 50 Output: Urine Amount (Catheter) 1525 / 1525 1255 / 1255 Condom 1525 / 1525 1255 / 1255 Other: Date of Last Bowel Movement 05/12/18 05/12/18 # Bowel Movements 0 0 <Luis Antonio Ann - 05/14/18 12:37> Narrative: General: Well-developed, alert, and in no acute distress. Appears stated age. HEENT: Atraumatic, moist mucous membranes Neck: Supple, trachea midline Cardiac: Tachycardic with regular rhythm without murmur Pulmonary: Non-labored breathing. Lungs clear to auscultation bilaterally with good air movement Abdomen: Normal bowel sounds, soft and non-tender without rebound or guarding Extremities: No edema, 2+ pedal pulses, capillary refill less than 2 seconds Neurologic: He has significant slurring of his speech. Pronator drift on the right side. 5 out of 5 strength in the left upper and lower extremities. 4 out of 5 strength in the right upper and lower extremities. Facial muscle asymmetry noted with smiling. He remains significantly confused and is not oriented at this time. <Luis Antonio Ann - 05/14/18 12:37> - Urinary Catheter Management Condom Cath placed during this visit: no <Facundo Thomas - 05/16/18 15:21> no <Luis Antonio Ann - 05/14/18 13:03> Reason for continuing: Hourly intake/output <Luis Antonio Ann - 05/14/18 12:37> Assessment and Plan - Assessment (1) Acute CVA (cerebrovascular accident) Code(s): I63.9 - Cerebral infarction, unspecified Status: Acute (2) Confusion Code(s): R41.0 - Disorientation, unspecified Status: Acute (3) Hypertension Code(s): I10 - Essential (primary) hypertension Status: Acute (4) Internal carotid artery stenosis Code(s): I65.29 - Occlusion and stenosis of unspecified carotid artery Status : Acute (5) Dysarthria Code(s): R47.1 - Dysarthria and anarthria Status: Acute (6) Heme positive stool Code(s): R19.5 - Other fecal abnormalities Status: Acute <Facundo Thomas - 05/16/18 15:21> (1) Acute CVA (cerebrovascular accident) Code(s): I63.9 - Cerebral infarction, unspecified Status: Acute (2) Confusion Code(s): R41.0 - Disorientation, unspecified Status: Acute (3) Hypertension Code(s): I10 - Essential (primary) hypertension Status: Acute (4) Internal carotid artery stenosis Code(s): I65.29 - Occlusion and stenosis of unspecified carotid artery Status : Acute (5) Dysarthria Code(s): R47.1 - Dysarthria and anarthria Status: Acute (6) Heme positive stool Code(s): R19.5 - Other fecal abnormalities Status: Acute <Luis Antonio Ann - 05/14/18 12:41> - Assessment and Plan Patient is an 83-year-old male who presented with acute stroke and had a repeat stroke while hospitalized. He is 3 weeks s/p CVA and right-sided endarterectomy. He has a chronically occluded left carotid. Symptoms at this time include 4 out of 5 strength on the right, right facial droop, significant dysarthria, and significant dysphasia. He also has significant confusion and it is unclear how much of this is secondary to the stroke. He also has been having melena. Gastroenterology is on board, EGD showed no obvious source of bleed, colonoscopy is planned for tomorrow or Wednesday. Acute stroke: -Consult to neurology * Watershed CVA due to low blood pressure * Maintain systolic BP >=140 * Would need a loop recorder to assess for AFIB -Continuous telemetry -Neurochecks every 4 hours -Continue Lipitor 80 mg p.o. at bedtime -HbA1c 5.8 -Physical therapy recommends rehab after hospitalization -Speech therapy: Will need continued therapy Anticoagulation -Hold daily aspirin 81 mg -Hold daily Plavix Will restart heparin drip after retroperitoneal abscess ruled out by CT -Will transition to warfarin once stable Chronic hypertension: -Hold home antihypertensives Labetalol for SBP greater than 220 or DBP greater than 120 -Currently on Midodrine to increase BP -Phenylephrine drip per critical care, currently off Confusion: This may be entirely from his CVA, however other causes may contribute especially considering the time course of his symptoms. He does also have some chronic dementia symptoms. -Urinalysis to assess for UTI - negative -Family was educated regarding wearing his hearing aids and reorienting him often Heme Positive stool: Reported black stools with heme positive. GI consulted. GI recommendations * EGD noted class B esophagitis and erosive duodenitis that could be contributing to his hemoglobin drop * Colonoscopy planned for tomorrow or Wednesday Due to his hemoglobin drop without obvious source and with continued anticoagulation, CT abdomen and pelvis was ordered to rule out retroperitoneal bleed at the advice of critical care Fluids: Normal saline at 100 cc/h Electrolytes: monitor and replete as needed Nutrition: N.p.o. at this time per gastroenterology (mechanical soft diet with chopped meat with gravy and thin liquids is the current speech therapy recommendation) GI prophylaxis: not indicated VTE prophylaxis: None currently, will restart heparin drip after CT abdomen and pelvis CODE STATUS: He is a DO NOT RESUSCITATE CODE STATUS after discussion with the family. Dose of care remain otherwise aggressive Disposition: Will need extensive rehab after discharge. Not currently stable for discharge. <Luis Antonio Ann - 05/14/18 13:03> - Attending Attestation See the residents documentation for details. I saw and evaluated the patient regarding the jenkins portions of this evaluation and agree with the residents findings and plans as written. Parts of this note were created using [employer] voice recognition software program. While efforts were made to correct any mistakes made by this software, some mistakes, errors, and omissions may remain in the final note that were not caught when the note was originally created. Plan of care was discussed and agreed upon with the patient as specifically documented in the above note. An opportunity to ask questions with explanation was provided. Patient voiced understanding on all information reviewed and discussed. <Facundo Thomas - 05/16/18 15:21>
[2018-05-14] MEDS: Heparin Drip 25,000 UNIT/250 ML BAG IV.CONT PRN (14:17)
--- NOTE | 2018-05-14 15:54 | CT ---
EXAM DATE: 05/14/2018 3:42 PM EST AGE/SEX: 83 years / Male INDICATIONS: Abdominal distention. CLINICAL DATA: This is the patient's initial encounter. Patient reports that signs and symptoms have been present for 1 day and indicates a pain score of 7/10. MEDICAL/SURGICAL HISTORY: Hypertension. None. ORAL CONTRAST: No oral contrast ingested. RADIATION DOSE: 13.38 CTDI (mGy) COMPARISON: No prior exams available for comparison. TECHNIQUE: Multiple contiguous axial images were obtained through the abdomen and pelvis following b olus infusion of 95 ml Omnipaque 350 (iohexol) nonionic water-soluble contrast as a single exam dos e. No oral contrast ingested. Using automated exposure control and adjustment of the mA and/or kV ac cording to patient size, radiation dose was kept as low as reasonably achievable to obtain optimal di agnostic quality images. DICOM format image data is available electronically for review and comparis on. FINDINGS: There is respiratory motion artifact. Lower chest: There is atelectasis in the right lower lobe. Coronary artery calcification is present. Hepatobiliary: No focal liver lesion is identified. Hepatic vasculature demonstrates no abnormality. No calcified gallstones are present. Kidneys: No hydronephrosis, stone, or mass. Adrenal Glands: Within normal limits. Spleen: Within normal limits. Pancreas: Within normal limits. Vascular: The aorta is nonaneurysmal. There is moderate to severe atherosclerotic disease. Bowel/Mesentery: The stomach and small bowel demonstrate no abnormality. No acute colon abnormality i s seen. There is no free intraperitoneal air or fluid. There are no signs of bowel obstruction. The a ppendix is normal. Abdominal Wall: No hernia is visualized. Retroperitoneum: No lymphadenopathy. Bladder: No wall thickening or mass. Reproductive: Prostate gland is mildly enlarged. Inguinal: No lymphadenopathy or hernia. Musculoskeletal: No acute osseous abnormality is identified. There is a benign-appearing sclerotic ar ea in the left sacrum. CONCLUSION: 1. No acute abnormality is identified to explain the clinical symptoms. Examination quality is mildl y degraded by respiratory motion artifact. 2. 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 Electronically signed by: Rick Batista MD 05/14/2018 3:52 PM EST
--- NOTE | 2018-05-14 17:45 | P.PNCC ---
Subjective Subjective Remarks/Hospital Course: This is a 83-year-old male. Admission 05/11/2018 repeat of consultation 05/12/2018. 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 Patient had a right carotid intervention by Dr. Oakes 04/24/2018. Today, patient presented to [facility] with onset of right-sided weakness, dysarthria, word finding difficulties, and increased confusion. Today he has acute onset at about 10 AM of right-sided weakness that has improved slightly since time of onset. He was unable to lift his arm or leg against gravity this morning. According to the medical record, his son stated that he has been more confused and had more difficulty speaking since Wednesday, however he did not have weakness at that time. CT of the brain 05/11 revealed no acute changes. Patent right carotid endarterectomy. Occluded left carotid internal carotid artery. Patient was evaluated by the family medicine team due to worsening confusion and dysarthria and right sided deficits/weakness. A stat MRI of the brain was performed which revealed restricted diffusion in the periventricular and deep white matter of the left frontal, parietal and occipital lobes consistent with new, acute/subacute infarcts. The entire region of involvement is approximately 2.2 x 8.4 cm in greatest transaxial dimension. These findings are superimposed on chronic white matter ischemic changes in the same region that were acute at the time of the comparison MRI. Neurology was notified. They recommended vasopressors to raise the mean arterial pressure to increase cerebral perfusion. We got involved with a central line and start the patient on phenylephrine drip. His home medications of losartan currently being held. On hydrochlorothiazide. SUBJECTIVE: 05/13: Maybe a little bit worse neurological haji this a.m. with regards to confusion/dysarthria and right sided weakness. Currently off phenylephrine drip. Discussed with Dr. Serrato in pharmacy. Okay to start Midodrine with very little cerebral vascular constriction. Starting at 2.5 mg 3 times daily and titrate as appropriate. Consulted gastroenterology as patient will need long-term anticoagulation. Currently heparin drip with heme positive stools and slowly trending down hemoglobin. 05/14: Resting comfortably in bed. Hemoglobin 7.9 this morning 1 unit PRBCs ordered as patient is on phenylephrine to try to keep systolic greater than 120. EGD done yesterday showed some inflammation in the duodenum however no active bleeding. Heparin drip resumed last night. CT abdomen pelvis to evaluate for retroperitoneal bleed ordered earlier. Objective Vital Signs / I&O: Vital Signs 05/13/18 17:45 05/13/18 17:51 05/13/18 18:00 Temperature Pulse Rate 98 H 95 H 99 H Respiratory Rate Blood Pressure 165/95 H 137/82 136/66 Pulse Oximetry 100 100 98 05/13/18 18:15 05/13/18 18:45 05/13/18 19:00 Temperature Pulse Rate 97 H 99 H 101 H Respiratory Rate 23 26 H 32 H Blood Pressure 154/78 H 127/63 131/60 Pulse Oximetry 97 100 98 05/13/18 19:15 05/13/18 19:30 05/13/18 19:45 Temperature Pulse Rate 95 H 99 H 100 H Respiratory Rate 24 22 31 H Blood Pressure 132/72 139/82 139/87 Pulse Oximetry 97 98 98 05/13/18 20:00 05/13/18 20:15 05/13/18 20:30 Temperature 98.5 F Pulse Rate 97 H 97 H 93 H Respiratory Rate 30 H 20 18 Blood Pressure 143/87 H 143/87 H 145/68 H Pulse Oximetry 98 99 98 05/13/18 20:45 05/13/18 21:00 05/13/18 21:15 Temperature Pulse Rate 93 H 88 84 Respiratory Rate 22 28 H 31 H Blood Pressure 138/63 124/59 L 137/63 Pulse Oximetry 97 97 95 05/13/18 21:30 05/13/18 21:45 05/13/18 22:00 Temperature Pulse Rate 96 H 88 98 H Respiratory Rate 23 26 H 30 H Blood Pressure 144/69 H 144/69 H 170/81 H Pulse Oximetry 100 100 100 05/13/18 22:15 05/13/18 22:19 05/13/18 22:30 Temperature Pulse Rate 101 H 91 H 96 H Respiratory Rate 20 19 29 H Blood Pressure 195/80 H 136/63 137/70 Pulse Oximetry 100 100 100 05/13/18 22:45 05/13/18 23:00 05/13/18 23:15 Temperature Pulse Rate 92 H 94 H 97 H Respiratory Rate 18 19 29 H Blood Pressure 137/67 127/62 132/69 Pulse Oximetry 99 98 100 05/13/18 23:29 05/13/18 23:45 05/14/18 00:00 Temperature 98.4 F Pulse Rate 93 H 86 99 H Respiratory Rate 23 20 39 H Blood Pressure 143/72 H 135/65 144/67 H Pulse Oximetry 99 100 99 05/14/18 00:15 05/14/18 00:29 05/14/18 00:45 Temperature Pulse Rate 86 79 79 Respiratory Rate 22 28 H 31 H Blood Pressure 126/58 L 123/66 121/61 Pulse Oximetry 96 100 100 05/14/18 01:00 05/14/18 01:15 05/14/18 01:29 Temperature Pulse Rate 82 86 79 Respiratory Rate 16 21 22 Blood Pressure 125/84 137/71 133/66 Pulse Oximetry 100 100 100 05/14/18 01:45 05/14/18 02:00 05/14/18 02:15 Temperature Pulse Rate 106 H 80 83 Respiratory Rate 50 H 22 20 Blood Pressure 179/96 H 124/64 121/61 Pulse Oximetry 100 100 88 L 05/14/18 02:30 05/14/18 02:45 05/14/18 03:00 Temperature Pulse Rate 81 80 77 Respiratory Rate 19 22 20 Blood Pressure 126/69 153/83 H 135/62 Pulse Oximetry 100 100 100 05/14/18 03:15 05/14/18 03:24 05/14/18 03:30 Temperature Pulse Rate 76 87 84 Respiratory Rate 23 13 19 Blood Pressure 162/108 H 152/75 H 150/71 H Pulse Oximetry 100 98 100 05/14/18 03:45 05/14/18 04:00 05/14/18 04:15 Temperature Pulse Rate 89 81 86 Respiratory Rate 19 17 19 Blood Pressure 145/66 H 107/58 L 107/74 Pulse Oximetry 100 100 99 05/14/18 04:30 05/14/18 04:45 05/14/18 05:00 Temperature 98.6 F Pulse Rate 83 81 75 Respiratory Rate 19 21 25 H Blood Pressure 141/76 H 149/66 H 149/70 H Pulse Oximetry 100 100 100 05/14/18 05:15 05/14/18 05:30 05/14/18 05:45 Temperature Pulse Rate 83 80 72 Respiratory Rate 24 19 21 Blood Pressure 144/70 H 148/64 H 151/74 H Pulse Oximetry 100 100 100 05/14/18 06:00 05/14/18 06:15 05/14/18 07:00 Temperature Pulse Rate 75 75 86 Respiratory Rate 21 16 21 Blood Pressure 131/63 131/67 Pulse Oximetry 100 100 95 05/14/18 07:14 05/14/18 07:15 05/14/18 07:29 Temperature Pulse Rate 75 74 74 Respiratory Rate 17 16 16 Blood Pressure 138/65 134/66 Pulse Oximetry 94 L 97 97 05/14/18 07:30 05/14/18 07:45 05/14/18 08:00 Temperature Pulse Rate 73 74 74 Respiratory Rate 15 16 19 Blood Pressure 125/60 139/67 Pulse Oximetry 96 97 99 05/14/18 08:15 05/14/18 08:28 05/14/18 08:29 Temperature Pulse Rate 81 79 Respiratory Rate 22 15 Blood Pressure 139/72 137/71 Pulse Oximetry 98 98 96 05/14/18 08:30 05/14/18 08:45 05/14/18 09:00 Temperature 98.3 F Pulse Rate 79 75 74 Respiratory Rate 19 21 14 Blood Pressure 145/67 H 137/71 Pulse Oximetry 96 98 99 05/14/18 09:15 05/14/18 09:29 05/14/18 09:30 Temperature Pulse Rate 84 96 H 90 Respiratory Rate 20 25 H 22 Blood Pressure 141/78 H 159/80 H Pulse Oximetry 99 97 99 05/14/18 09:45 05/14/18 10:00 05/14/18 10:05 Temperature Pulse Rate 88 90 87 Respiratory Rate 29 H 22 23 Blood Pressure 164/80 H 142/92 H Pulse Oximetry 99 98 98 05/14/18 10:15 05/14/18 10:29 05/14/18 10:30 Temperature Pulse Rate 90 83 82 Respiratory Rate 21 15 15 Blood Pressure 145/96 H 136/66 Pulse Oximetry 97 97 96 05/14/18 10:44 05/14/18 10:45 05/14/18 11:00 Temperature Pulse Rate 90 88 90 Respiratory Rate 22 17 20 Blood Pressure 140/77 143/78 H Pulse Oximetry 97 97 98 05/14/18 11:15 05/14/18 11:29 05/14/18 11:30 Temperature Pulse Rate 96 H 90 90 Respiratory Rate 37 H 16 25 H Blood Pressure 139/76 139/75 Pulse Oximetry 99 98 97 05/14/18 11:44 05/14/18 11:45 05/14/18 12:00 Temperature 98.6 F Pulse Rate 91 H 90 96 H Respiratory Rate 16 15 18 Blood Pressure 138/73 135/69 Pulse Oximetry 97 97 98 05/14/18 12:15 05/14/18 12:30 05/14/18 12:45 Temperature Pulse Rate 92 H 90 81 Respiratory Rate 26 H 19 21 Blood Pressure 122/63 Pulse Oximetry 100 99 98 05/14/18 13:00 05/14/18 13:15 05/14/18 13:30 Temperature Pulse Rate 81 90 93 H Respiratory Rate 30 H 21 19 Blood Pressure 88/54 L 94/54 L 122/68 Pulse Oximetry 98 68 L 98 05/14/18 13:45 05/14/18 14:00 05/14/18 14:15 Temperature Pulse Rate 95 H 93 H 93 H Respiratory Rate 20 27 H 19 Blood Pressure 128/67 135/70 132/69 Pulse Oximetry 97 97 96 05/14/18 14:30 05/14/18 14:45 05/14/18 15:00 Temperature Pulse Rate 95 H 84 79 Respiratory Rate 21 23 20 Blood Pressure 135/66 127/63 Pulse Oximetry 97 97 98 05/14/18 15:15 05/14/18 15:30 05/14/18 15:45 Temperature Pulse Rate 94 H 102 H 93 H Respiratory Rate 18 31 H 18 Blood Pressure 115/56 L 140/79 126/65 Pulse Oximetry 96 98 98 05/14/18 16:00 05/14/18 16:15 05/14/18 16:30 Temperature Pulse Rate 83 79 79 Respiratory Rate 17 21 26 H Blood Pressure 123/68 128/72 126/66 Pulse Oximetry 99 98 98 05/14/18 16:45 05/14/18 17:00 05/14/18 17:28 Temperature 98.3 F Pulse Rate 82 77 93 H Respiratory Rate 15 20 18 Blood Pressure 131/65 128/64 123/69 Pulse Oximetry 97 97 97 Intake & Output 05/13/18 05/14/18 05/14/18 18:59 06:59 18:59 Intake Total 2125 / 2125 1999 250 / 250 Output Total 1525 / 1525 1255 / 1255 Balance 600 / 600 745 / 745 250 / 250 Weight 77.2 kg Intake: IV 1655 / 1655 1999 250 / 250 Heparin/D5W 25,000 U/250 mL 25, 250 / 250 000 unit In 250 ml @ Per Protocol IV.CONT TITRATE PRN Rx #:[id number] Neosynephrine Inj 160 MG In NS 500 / 500 Inj 484 ML @ 40 MCG/MIN 7.5 mls /hr IV.CONT TITRATE PRN Rx#: [id number] NS Inj 1,000 ML @ 100 mls/hr IV 1000 / 1000 1999 .CONT .Q10H DIONISIO Rx#:[id number] Potassium Phosphate Inj 15 MMOL 155 / 155 In NS Inj 150 ML @ 38.75 mls/ hr IV.SIG ONCE ONE Rx#:[id number] Oral 420 / 420 Anesthesia Amount 50 / 50 Intake (Blood Product) Amt 0 / 0 Rbc As-3 Leukoreduced Unit 0 / 0 [id number] Output: Urine Amount (Catheter) 1525 / 1525 1255 / 1255 Condom 1525 / 1525 1255 / 1255 Other: Date of Last Bowel Movement 05/12/18 05/12/18 # Bowel Movements 0 0 Result Diagrams: 05/14/18 03:40 05/14/18 03:40 Objective Remarks: GENERAL: 83-year-old male currently resting in bed in no acute distress SKIN: Warm and dry. Ecchymoses bilateral upper extremities HEAD: Atraumatic. Normocephalic. EYES: Pupils equal and round about 3 mm bilaterally reactive. No scleral icterus. No injection or drainage. ENT: No nasal bleeding or discharge. Mucous membranes pink and moist. NECK: Trachea midline. No JVD. CARDIOVASCULAR: Regular rate and rhythm. S1, S2. No S4. RESPIRATORY:. Clear to auscultation. Breath sounds equal bilaterally. GASTROINTESTINAL: Abdomen soft, non-tender, nondistended. Positive bowel sounds are appreciated. MUSCULOSKELETAL: Extremities with trace bilateral lower extremity edema NEUROLOGICAL: Awake and alert. Slight right-sided facial droop. Right upper and lower extremity subjective weaker compared r to the left side. Sensation appears intact. Assessment and Plan - Assessment and Plan Plan: Neuro/Psych: Left frontal/parietal/occipital CVA MRI of brain 05/12 revealed restricted diffusion in the periventricular and deep white matter of the left frontal, parietal and occipital lobes consistent with new, acute/subacute infarcts. The entire region of involvement is approximately 2.2 x 8.4 cm in greatest transaxial dimension. These findings are superimposed on chronic white matter ischemic changes in the same region that were acute at the time of the comparison MRI. Currently off aspirin 81 mg daily and clopidogrel 75 mg daily as of 05/12, Currently on heparin gtt. Would like to transition to warfarin per neurology. Evaluated by neurology. Recommended increased suprapubic pressure with vasopressors. CCD M CT of the brain revealed no acute findings. CTA revealed occluded left ICA. Collaterals from right side noted CV: Left internal carotid artery occlusion Status post right carotid enterectomy 04/[address] Oakes Essential hypertension Hyperlipidemia/elevated LDL Received 1 L normal saline bolus on 05/12 overnight. Currently on phenylephrine drip to maintain systolic blood pressure greater than 120 for perfusion Holding home medications of valsartan and hydrochlorothiazide and attempt to increase cerebral perfusion pressures Was on losartan 100 mg daily and hydrochlorothiazide 12.5 mg daily Continue atorvastatin 80 mg daily for dyslipidemia Echocardiogram 04/24 revealed EF of 65-70%. PAP 30 mmHg Troponin 0.02. Increase midodrine 10mg 3 times daily. Goal keep systolic pressure greater than 120. Resp: Prior history of tobacco abuse Nasal cannula to maintain saturations greater than equal to 92% Incentive spirometry while awake Follow-up chest x-ray post line placement As needed albuterol aerosols every 2 hours as needed dyspnea GI: Hypoalbuminemia Advance diet as tolerated Pantoprazole for GI prophylaxis Docusate sodium/senna 1 tablet twice daily for bowel regimen GI performed EGD on 05/13 with duodenal inflammation no active bleeding. They okayed aspirin and heparin. Will need long-term anticoagulation : History of BPH Garcia catheter if indicated for accurate I's and O's in a critical patient Previously on tamsulosin 0.4 mg p.o. daily Endo: Sliding scale insulin Accu-Cheks every 6 hours maintain euglycemia/low regimen TSH was 1.44 Renal: Currently normal saline at 100 cc an hour. Okay to discontinue Monitor urine output Accurate I's and O's Follow BMP this a.m. Heme: Leukocytosis Normocytic anemia Monitor CBC daily. Follow trends. 1 unit PRBCs ordered to keep hemoglobin above 8 g% especially since we are attempting to keep SBP greater than 120. ID: Monitor for signs and symptomatology infection MSK: PT/OT evaluate and treat FEN: Hypophosphatemia Replace electrolytes as clinically indicated per ICU electrolyte protocol Access -Left IJ CVL placed 05/12 Prophylaxis -GI-pantoprazole -DVT SCD/heparin drip provides pharmacological prophylaxis
[2018-05-14] MEDS: Gentamicin 0.3% Opth Drops 5 ML Bottle EACH EYE SCH (22:15)
[2018-05-15] MEDS: Sod Chloride 0.9% Inj 1,000 ML IV.CONT SCH ×4 (02:18→21:55)
[2018-05-15 04:42] LABS: Baso % (Auto) 0.5 % (0.0-2.0); Eos # (Auto) 0.3 th/mm3 (0.0-0.4); Eos % (Auto) 2.6 % (0.0-4.0); Hematocrit 27.4 % (39.0-51.0); Hemoglobin 9.3 gm/dL (13.0-17.0); Lymph # (Auto) 1.2 th/mm3 (1.0-4.8); Lymph % (Auto) 12.2 % (9.0-44.0); Mean Corpuscular HGB Conc 34.1 % (32.0-36.0); Mean Corpuscular Hemoglobin 29.5 pg (27.0-34.0); Mean Corpuscular Volume 86.6 fL (80.0-100.0); Mean Platelet Volume 6.9 fL (7.0-11.0); Mono # (Auto) 0.8 th/mm3 (0.0-0.9); Mono % (Auto) 7.4 % (0.0-8.0); Neut # (Auto) 7.9 th/mm3 (1.8-7.7); Neut % (Auto) 77.3 % (16.0-70.0); Platelet Count 222 th/mm3 (150-450); Red Blood Count 3.16 mil/mm3 (4.50-5.90); Red Cell Distribution Width 14.9 % (11.6-17.2); White Blood Count 10.2 th/mm3 (4.0-11.0)
[2018-05-15 05:03] LABS: Anion Gap 7 meq/L (5-15); Blood Urea Nitrogen 7 mg/dL (7-18); Calcium 7.7 mg/dL (8.5-10.1); Carbon Dioxide 26.6 meq/L (21.0-32.0); Chloride 104 meq/L (98-107); Glomerular Filtration Rate Greater Than 89 mL/min (>89); Glucose,Random 98 mg/dL (74-106); Potassium 3.5 meq/L (3.5-5.1); Sodium 138 meq/L (136-145)
--- NOTE | 2018-05-15 09:20 | P.PNFP ---
Subjective Interval history: No acute events overnight. He did continue to require phenylephrine to meet his blood pressure goal of SBP: 120. Last bowel movement was 3 days ago he denies any complaints this morning. Full review of systems is unable to be completed due to his mental status. <Luis Antonio Ann - 05/15/18 09:48> Results - Labs Result diagrams: 05/16/18 04:00 05/16/18 14:18 <Facundo Thomas - 05/16/18 15:24> Abnormal lab results 05/15/18 05/16/18 05/16/18 Range/Units 16:15 04:00 04:00 RBC 3.09 L (4.50-5.90) mil/mm3 Hgb 9.5 L (13.0-17.0) gm/dL Hct 27.0 L (39.0-51.0) % MPV 6.9 L (7.0-11.0) fL Neut % (Auto) 78.1 H (16.0-70.0) % Neut # (Auto) 8.0 H (1.8-7.7) th/mm3 APTT 62.5 H 65.9 H (23.4-31.7) sec Potassium (3.5-5.1) meq/L Calcium (8.5-10.1) mg/dL 05/16/18 Range/Units 04:00 RBC (4.50-5.90) mil/mm3 Hgb (13.0-17.0) gm/dL Hct (39.0-51.0) % MPV (7.0-11.0) fL Neut % (Auto) (16.0-70.0) % Neut # (Auto) (1.8-7.7) th/mm3 APTT (23.4-31.7) sec Potassium 3.3 L (3.5-5.1) meq/L Calcium 8.2 L (8.5-10.1) mg/dL Short CBC 05/16/18 Range/Units 04:00 WBC 10.2 (4.0-11.0) th/mm3 Hgb 9.5 L (13.0-17.0) gm/dL Hct 27.0 L (39.0-51.0) % Plt Count 212 (150-450) th/mm3 BMP 12/10/18 12/10/18 04:00 14:18 Sodium 137 Potassium 3.3 L 3.5 Chloride 104 Carbon Dioxide 23.3 BUN 11 Creatinine 0.73 Calcium 8.2 L <Facundo Thomas - 05/16/18 15:24> Abnormal lab results 05/14/18 05/14/18 05/14/18 Range/Units 10:28 16:00 16:00 RBC (4.50-5.90) mil/mm3 Hgb (13.0-17.0) gm/dL Hct (39.0-51.0) % MPV (7.0-11.0) fL Neut % (Auto) (16.0-70.0) % Neut # (Auto) (1.8-7.7) th/mm3 APTT 33.8 H D 55.6 H D (23.4-31.7) sec Calcium (8.5-10.1) mg/dL MTS Gel Crossmatch See Detail 05/14/18 05/15/18 05/15/18 Range/Units 22:30 04:26 04:26 RBC 3.16 L (4.50-5.90) mil/mm3 Hgb 9.3 L (13.0-17.0) gm/dL Hct 27.4 L (39.0-51.0) % MPV 6.9 L (7.0-11.0) fL Neut % (Auto) 77.3 H (16.0-70.0) % Neut # (Auto) 7.9 H (1.8-7.7) th/mm3 APTT 66.4 H 77.3 H (23.4-31.7) sec Calcium (8.5-10.1) mg/dL MTS Gel Crossmatch 05/15/18 Range/Units 04:26 RBC (4.50-5.90) mil/mm3 Hgb (13.0-17.0) gm/dL Hct (39.0-51.0) % MPV (7.0-11.0) fL Neut % (Auto) (16.0-70.0) % Neut # (Auto) (1.8-7.7) th/mm3 APTT (23.4-31.7) sec Calcium 7.7 L (8.5-10.1) mg/dL MTS Gel Crossmatch Short CBC 05/15/18 Range/Units 04:26 WBC 10.2 (4.0-11.0) th/mm3 Hgb 9.3 L (13.0-17.0) gm/dL Hct 27.4 L (39.0-51.0) % Plt Count 222 (150-450) th/mm3 BMP 05/15/18 04:26 Sodium 138 Potassium 3.5 Chloride 104 Carbon Dioxide 26.6 BUN 7 Creatinine 0.64 Calcium 7.7 L <Luis Antonio Ann - 05/15/18 09:20> - Imaging Impressions Abdomen/Pelvis CT 05/14/18 00:00 CONCLUSION: 1. No acute abnormality is identified to explain the clinical symptoms. Examination quality is mildly degraded by respiratory motion artifact. 2. 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 <Luis Antonio Ann - 05/15/18 09:20> Physical Exam Vital signs: Vital Signs 05/15/18 15:30 05/15/18 15:45 05/15/18 16:00 Temperature 98.0 F Pulse Rate 89 84 81 Respiratory Rate 15 16 14 Blood Pressure 133/82 124/58 L 125/61 Pulse Oximetry 96 97 98 05/15/18 16:15 05/15/18 16:30 05/15/18 16:45 Temperature Pulse Rate 83 76 77 Respiratory Rate 16 14 15 Blood Pressure 130/64 128/62 126/64 Pulse Oximetry 97 97 98 05/15/18 17:00 05/15/18 17:15 05/15/18 17:30 Temperature Pulse Rate 78 95 H 95 H Respiratory Rate 14 17 24 Blood Pressure 136/72 136/72 135/69 Pulse Oximetry 97 97 97 05/15/18 17:45 05/15/18 19:49 05/15/18 20:00 Temperature Pulse Rate 82 78 Respiratory Rate 16 Blood Pressure 125/61 Pulse Oximetry 96 97 100 05/15/18 23:15 05/15/18 23:30 05/15/18 23:45 Temperature 98.6 F Pulse Rate 82 78 84 Respiratory Rate 14 22 Blood Pressure 147/76 H 126/63 129/69 Pulse Oximetry 97 96 100 05/16/18 00:00 05/16/18 00:15 05/16/18 00:30 Temperature Pulse Rate 81 84 86 Respiratory Rate 23 22 22 Blood Pressure 127/66 132/68 131/61 Pulse Oximetry 99 98 96 05/16/18 00:45 05/16/18 01:00 05/16/18 01:15 Temperature Pulse Rate 101 H 80 80 Respiratory Rate 22 22 16 Blood Pressure 157/74 H 139/64 148/70 H Pulse Oximetry 99 98 96 05/16/18 01:30 05/16/18 01:45 05/16/18 02:00 Temperature Pulse Rate 82 87 85 Respiratory Rate 23 16 21 Blood Pressure 146/80 H 143/71 H 159/75 H Pulse Oximetry 97 98 100 05/16/18 02:15 05/16/18 02:30 05/16/18 02:45 Temperature Pulse Rate 80 91 H Respiratory Rate 23 20 18 Blood Pressure 140/62 139/63 130/66 Pulse Oximetry 96 97 97 05/16/18 03:00 05/16/18 03:15 05/16/18 03:30 Temperature Pulse Rate 84 89 90 Respiratory Rate 15 16 16 Blood Pressure 128/70 121/67 122/70 Pulse Oximetry 98 96 98 05/16/18 03:45 05/16/18 04:00 05/16/18 04:15 Temperature 98.3 F Pulse Rate 98 H 98 H 89 Respiratory Rate 22 16 15 Blood Pressure 156/86 H 157/66 H 141/65 H Pulse Oximetry 99 97 96 05/16/18 04:30 05/16/18 04:45 05/16/18 05:00 Temperature Pulse Rate 84 90 98 H Respiratory Rate 14 16 Blood Pressure 144/67 H 147/72 H 147/75 H Pulse Oximetry 98 100 100 05/16/18 05:15 05/16/18 06:45 05/16/18 07:00 Temperature Pulse Rate 81 100 H 95 H Respiratory Rate 24 25 H 21 Blood Pressure 146/79 H 168/74 H 143/72 H Pulse Oximetry 95 97 96 05/16/18 07:15 05/16/18 07:30 05/16/18 07:45 Temperature Pulse Rate 91 H 86 84 Respiratory Rate 17 21 22 Blood Pressure 138/64 141/67 H 141/64 H Pulse Oximetry 95 96 97 05/16/18 08:00 05/16/18 08:15 05/16/18 08:30 Temperature Pulse Rate 95 H 88 91 H Respiratory Rate 18 26 H 16 Blood Pressure 138/66 129/61 144/72 H Pulse Oximetry 97 97 98 05/16/18 08:31 05/16/18 08:45 05/16/18 09:00 Temperature Pulse Rate 88 86 Respiratory Rate 16 18 Blood Pressure 132/63 128/63 Pulse Oximetry 99 97 97 05/16/18 09:15 05/16/18 09:30 05/16/18 09:45 Temperature Pulse Rate 83 82 82 Respiratory Rate 27 H 25 H 26 H Blood Pressure 131/72 146/76 H 138/67 Pulse Oximetry 97 98 97 05/16/18 10:00 05/16/18 10:15 05/16/18 10:30 Temperature Pulse Rate 82 88 90 Respiratory Rate 27 H 16 17 Blood Pressure 140/70 151/78 H 151/81 H Pulse Oximetry 99 98 97 05/16/18 10:45 05/16/18 11:00 05/16/18 11:15 Temperature Pulse Rate 105 H 99 H 93 H Respiratory Rate 28 H 31 H 22 Blood Pressure 164/78 H 147/59 H 141/65 H Pulse Oximetry 98 96 97 05/16/18 11:30 05/16/18 11:45 05/16/18 12:00 Temperature 99.7 F H Pulse Rate 88 87 101 H Respiratory Rate 24 17 24 Blood Pressure 128/62 121/64 116/66 Pulse Oximetry 98 97 97 05/16/18 12:15 05/16/18 12:18 05/16/18 12:30 Temperature Pulse Rate 98 H 97 H 92 H Respiratory Rate 20 17 17 Blood Pressure 115/68 135/63 120/63 Pulse Oximetry 97 97 98 Intake & Output 05/15/18 05/16/18 05/16/18 18:59 06:59 18:59 Intake Total 1770 / 1770 1999 / 1999 Output Total 650 / 650 1500 / 1500 Balance 1120 / 1120 500 / 500 Weight 78.5 kg Intake: IV 1350 / 1350 1999 Heparin/D5W 25,000 U/250 mL 25, 250 / 250 000 unit In 250 ml @ Per Protocol IV.CONT TITRATE PRN Rx #:[id number] Neosynephrine Inj 160 MG In NS 100 / 100 Inj 484 ML @ 40 MCG/MIN 7.5 mls /hr IV.CONT TITRATE PRN Rx#: [id number] NS Inj 1,000 ML @ 100 mls/hr IV 1000 / 1000 1999 / 1999 .CONT .Q10H DIONISIO Rx#:[id number] Oral 420 / 420 Output: Urine Amount (Catheter) 650 / 650 1500 / 1500 Condom 650 / 650 1500 / 1500 Other: Date of Last Bowel Movement 05/12/18 05/12/18 05/12/18 # Bowel Movements 0 # Incontinent Bowel Movements 1 <Facundo Thomas - 05/16/18 15:24> Vital Signs 05/14/18 09:15 05/14/18 09:29 05/14/18 09:30 Temperature Pulse Rate 84 96 H 90 Respiratory Rate 20 25 H 22 Blood Pressure 141/78 H 159/80 H Pulse Oximetry 99 97 99 05/14/18 09:45 05/14/18 10:00 05/14/18 10:05 Temperature Pulse Rate 88 90 87 Respiratory Rate 29 H 22 23 Blood Pressure 164/80 H 142/92 H Pulse Oximetry 99 98 98 05/14/18 10:15 05/14/18 10:29 05/14/18 10:30 Temperature Pulse Rate 90 83 82 Respiratory Rate 21 15 15 Blood Pressure 145/96 H 136/66 Pulse Oximetry 97 97 96 05/14/18 10:44 05/14/18 10:45 05/14/18 11:00 Temperature Pulse Rate 90 88 90 Respiratory Rate 22 17 20 Blood Pressure 140/77 143/78 H Pulse Oximetry 97 97 98 05/14/18 11:15 05/14/18 11:29 05/14/18 11:30 Temperature Pulse Rate 96 H 90 90 Respiratory Rate 37 H 16 25 H Blood Pressure 139/76 139/75 Pulse Oximetry 99 98 97 05/14/18 11:44 05/14/18 11:45 05/14/18 12:00 Temperature 98.6 F Pulse Rate 91 H 90 96 H Respiratory Rate 16 15 18 Blood Pressure 138/73 135/69 Pulse Oximetry 97 97 98 05/14/18 12:15 05/14/18 12:30 05/14/18 12:45 Temperature Pulse Rate 92 H 90 81 Respiratory Rate 26 H 19 21 Blood Pressure 122/63 Pulse Oximetry 100 99 98 05/14/18 13:00 05/14/18 13:15 05/14/18 13:30 Temperature Pulse Rate 81 90 93 H Respiratory Rate 30 H 21 19 Blood Pressure 88/54 L 94/54 L 122/68 Pulse Oximetry 98 68 L 98 05/14/18 13:45 05/14/18 14:00 05/14/18 14:15 Temperature Pulse Rate 95 H 93 H 93 H Respiratory Rate 20 27 H 19 Blood Pressure 128/67 135/70 132/69 Pulse Oximetry 97 97 96 05/14/18 14:30 05/14/18 14:45 05/14/18 15:00 Temperature Pulse Rate 95 H 84 79 Respiratory Rate 21 23 20 Blood Pressure 135/66 127/63 Pulse Oximetry 97 97 98 05/14/18 15:15 05/14/18 15:30 05/14/18 15:45 Temperature Pulse Rate 94 H 102 H 93 H Respiratory Rate 18 31 H 18 Blood Pressure 115/56 L 140/79 126/65 Pulse Oximetry 96 98 98 05/14/18 16:00 05/14/18 16:15 05/14/18 16:30 Temperature Pulse Rate 83 79 79 Respiratory Rate 17 21 26 H Blood Pressure 123/68 128/72 126/66 Pulse Oximetry 99 98 98 05/14/18 16:45 05/14/18 17:00 05/14/18 17:28 Temperature 98.3 F Pulse Rate 82 77 93 H Respiratory Rate 15 20 18 Blood Pressure 131/65 128/64 123/69 Pulse Oximetry 97 97 97 05/14/18 17:44 05/14/18 18:15 05/14/18 19:30 Temperature 98.5 F 98.5 F Pulse Rate 95 H 85 Respiratory Rate 18 18 Blood Pressure 124/82 138/85 Pulse Oximetry 94 L 96 100 05/14/18 20:00 05/14/18 21:00 05/14/18 22:00 Temperature 98.0 F Pulse Rate 87 85 93 H Respiratory Rate 23 20 23 Blood Pressure 148/88 H 119/65 159/106 H Pulse Oximetry 100 97 97 05/14/18 23:00 05/15/18 00:00 05/15/18 01:00 Temperature Pulse Rate 81 77 79 Respiratory Rate 20 17 17 Blood Pressure 131/68 142/86 H 144/66 H Pulse Oximetry 98 96 92 L 05/15/18 02:00 05/15/18 03:00 05/15/18 04:00 Temperature Pulse Rate 76 89 82 Respiratory Rate 21 16 16 Blood Pressure 136/77 127/70 137/68 Pulse Oximetry 91 L 96 94 L 05/15/18 05:00 Temperature Pulse Rate 82 Respiratory Rate 16 Blood Pressure 131/71 Pulse Oximetry 91 L Intake & Output 05/14/18 05/15/18 05/15/18 18:59 06:59 18:59 Intake Total 1350 / 1350 1100 / 1100 Output Total 1400 / 1400 1325 / 1325 Balance -50 / -50 -225 / -225 Weight 76.9 kg Intake: IV 1250 / 1250 1000 / 1000 Heparin/D5W 25,000 U/250 mL 25, 250 / 250 000 unit In 250 ml @ Per Protocol IV.CONT TITRATE PRN Rx #:[id number] NS Inj 1,000 ML @ 100 mls/hr IV 1000 / 1000 1000 / 1000 .CONT .Q10H DIONISIO Rx#:[id number] Oral 100 / 100 100 / 100 Intake (Blood Product) Amt 0 / 0 Rbc As-3 Leukoreduced Unit 0 / 0 [id number] Output: Urine Amount (Catheter) 1400 / 1400 1325 / 1325 Condom 1400 / 1400 1325 / 1325 Other: Date of Last Bowel Movement 05/12/18 05/12/18 # Bowel Movements 0 0 <Luis Antonio Ann - 05/15/18 09:20> Narrative: General: Well-developed, alert, and in no acute distress. Appears stated age. HEENT: Atraumatic, moist mucous membranes Neck: Supple, trachea midline Cardiac: Tachycardic with regular rhythm without murmur Pulmonary: Non-labored breathing. Lungs clear to auscultation bilaterally with good air movement Abdomen: Normal bowel sounds, soft and non-tender without rebound or guarding Extremities: No edema, 2+ pedal pulses, capillary refill less than 2 seconds Neurologic: He has significant slurring of his speech. Pronator drift on the right side, mild interval improvement. 5 out of 5 strength in the left upper and lower extremities. 4 out of 5 strength in the right upper and lower extremities. Facial muscle asymmetry noted with smiling, mild intermittent full improvement. His confusion does wax and wane, however is overall stable. <Luis Antonio Ann - 05/15/18 09:48> - Urinary Catheter Management Condom Cath placed during this visit: no <Facundo Thomas - 05/16/18 15:24> no <Luis Antonio Ann - 05/15/18 09:48> Reason for continuing: Hourly intake/output <Luis Antonio Ann - 05/15/18 09:20> Assessment and Plan - Assessment (1) Acute CVA (cerebrovascular accident) Code(s): I63.9 - Cerebral infarction, unspecified Status: Acute (2) Confusion Code(s): R41.0 - Disorientation, unspecified Status: Acute (3) Hypertension Code(s): I10 - Essential (primary) hypertension Status: Acute (4) Internal carotid artery stenosis Code(s): I65.29 - Occlusion and stenosis of unspecified carotid artery Status : Acute (5) Dysarthria Code(s): R47.1 - Dysarthria and anarthria Status: Acute (6) Heme positive stool Code(s): R19.5 - Other fecal abnormalities Status: Acute <Facundo Thomas - 05/16/18 15:24> (1) Acute CVA (cerebrovascular accident) Code(s): I63.9 - Cerebral infarction, unspecified Status: Acute (2) Confusion Code(s): R41.0 - Disorientation, unspecified Status: Acute (3) Hypertension Code(s): I10 - Essential (primary) hypertension Status: Acute (4) Internal carotid artery stenosis Code(s): I65.29 - Occlusion and stenosis of unspecified carotid artery Status : Acute (5) Dysarthria Code(s): R47.1 - Dysarthria and anarthria Status: Acute (6) Heme positive stool Code(s): R19.5 - Other fecal abnormalities Status: Acute <Luis Antonio Ann - 05/15/18 09:45> - Assessment and Plan Patient is an 83-year-old male who presented with acute stroke and had a repeat stroke while hospitalized. He is 3 weeks s/p CVA and right-sided endarterectomy. He has a chronically occluded left carotid. Symptoms at this time include 4 out of 5 strength on the right, right facial droop, significant dysarthria, and significant receptive and expressive aphasia. He also has significant confusion and it is unclear how much of this is secondary to the stroke. He also has been having melena. Gastroenterology is on board, EGD showed no obvious source of bleed, colonoscopy is planned for Wednesday. Acute stroke: -Neurology is following Maintain systolic blood pressure greater than 120 -Currently on Midodrine 10 mg 3 times daily to increase BP -Phenylephrine drip per critical care -May need a loop recorder, per neurology -Continuous telemetry -Neurochecks every 4 hours -Continue Lipitor 80 mg p.o. at bedtime -Physical therapy recommends rehab after hospitalization -Speech therapy: Will need continued therapy Anticoagulation -Hold daily aspirin 81 mg -Hold daily Plavix Currently on heparin drip -Will transition to warfarin once stable -CT abdomen and pelvis yesterday showed no retroperitoneal bleed Chronic hypertension: -Hold home antihypertensives Labetalol for SBP greater than 220 or DBP greater than 120 Confusion: This may be entirely from his CVA, however other causes may contribute especially considering the time course of his symptoms. He does also have some chronic dementia symptoms. -Urinalysis to assess for UTI - negative -Family was educated regarding wearing his hearing aids and reorienting him often Heme Positive stool: Reported black stools with heme positive. GI consulted. GI recommendations * EGD noted class B esophagitis and erosive duodenitis that could be contributing to his hemoglobin drop * Colonoscopy planned for tomorrow Fluids: Normal saline at 100 cc/h Electrolytes: monitor and replete as needed Nutrition: N.p.o. at this time for colonoscopy tomorrow (mechanical soft diet with chopped meat with gravy and thin liquids is the current speech therapy recommendation) GI prophylaxis: Not indicated VTE prophylaxis: Currently on heparin drip CODE STATUS: He is a DO NOT RESUSCITATE CODE STATUS after discussion with the family. Goals of care remain otherwise aggressive Disposition: Will need extensive rehab after discharge. Not currently stable for discharge. <Lusi Antonio Ann - 05/15/18 09:48> - Attending Attestation See the residents documentation for details. I saw and evaluated the patient regarding the jenkins portions of this evaluation and agree with the residents findings and plans as written. Parts of this note were created using [email or web address] voice recognition software program. While efforts were made to correct any mistakes made by this software, some mistakes, errors, and omissions may remain in the final note that were not caught when the note was originally created. Plan of care was discussed and agreed upon with the patient as specifically documented in the above note. An opportunity to ask questions with explanation was provided. Patient voiced understanding on all information reviewed and discussed. <Facundo Thomas - 05/16/18 15:24>
[2018-05-15] MEDS: Gentamicin 0.3% Opth Drops 5 ML Bottle EACH EYE SCH ×2 (09:46→19:28)
[2018-05-15] MEDS: Pantoprazole Inj 40 MG Vial IV.PUSH SCH ×2 (10:11→21:25)
--- NOTE | 2018-05-15 12:53 | P.PNCC ---
Subjective Subjective Remarks/Hospital Course: This is a 83-year-old male. Admission 05/11/2018 repeat of consultation 05/12/2018. 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 Patient had a right carotid intervention by Dr. Oakes 04/24/2018. Today, patient presented to [facility] with onset of right-sided weakness, dysarthria, word finding difficulties, and increased confusion. Today he has acute onset at about 10 AM of right-sided weakness that has improved slightly since time of onset. He was unable to lift his arm or leg against gravity this morning. According to the medical record, his son stated that he has been more confused and had more difficulty speaking since Wednesday, however he did not have weakness at that time. CT of the brain 05/11 revealed no acute changes. Patent right carotid endarterectomy. Occluded left carotid internal carotid artery. Patient was evaluated by the family medicine team due to worsening confusion and dysarthria and right sided deficits/weakness. A stat MRI of the brain was performed which revealed restricted diffusion in the periventricular and deep white matter of the left frontal, parietal and occipital lobes consistent with new, acute/subacute infarcts. The entire region of involvement is approximately 2.2 x 8.4 cm in greatest transaxial dimension. These findings are superimposed on chronic white matter ischemic changes in the same region that were acute at the time of the comparison MRI. Neurology was notified. They recommended vasopressors to raise the mean arterial pressure to increase cerebral perfusion. We got involved with a central line and start the patient on phenylephrine drip. His home medications of losartan currently being held. On hydrochlorothiazide. SUBJECTIVE: 05/13: Maybe a little bit worse neurological haji this a.m. with regards to confusion/dysarthria and right sided weakness. Currently off phenylephrine drip. Discussed with Dr. Serrato in pharmacy. Okay to start Midodrine with very little cerebral vascular constriction. Starting at 2.5 mg 3 times daily and titrate as appropriate. Consulted gastroenterology as patient will need long-term anticoagulation. Currently heparin drip with heme positive stools and slowly trending down hemoglobin. 05/14: Resting comfortably in bed. Hemoglobin 7.9 this morning 1 unit PRBCs ordered as patient is on phenylephrine to try to keep systolic greater than 120. EGD done yesterday showed some inflammation in the duodenum however no active bleeding. Heparin drip resumed last night. CT abdomen pelvis to evaluate for retroperitoneal bleed ordered earlier. 05/15: Patient lying in bed no acute distress. Currently off [place]-Synephrine as from systolic blood pressure remains above 120. No acute events noted overnight. at the bedside Objective Vital Signs / I&O: Vital Signs 05/14/18 13:00 05/14/18 13:15 05/14/18 13:30 Temperature Pulse Rate 81 90 93 H Respiratory Rate 30 H 21 19 Blood Pressure 88/54 L 94/54 L 122/68 Pulse Oximetry 98 68 L 98 05/14/18 13:45 05/14/18 14:00 05/14/18 14:15 Temperature Pulse Rate 95 H 93 H 93 H Respiratory Rate 20 27 H 19 Blood Pressure 128/67 135/70 132/69 Pulse Oximetry 97 97 96 05/14/18 14:30 05/14/18 14:45 05/14/18 15:00 Temperature Pulse Rate 95 H 84 79 Respiratory Rate 21 23 20 Blood Pressure 135/66 127/63 Pulse Oximetry 97 97 98 05/14/18 15:15 05/14/18 15:30 05/14/18 15:45 Temperature Pulse Rate 94 H 102 H 93 H Respiratory Rate 18 31 H 18 Blood Pressure 115/56 L 140/79 126/65 Pulse Oximetry 96 98 98 05/14/18 16:00 05/14/18 16:15 05/14/18 16:30 Temperature Pulse Rate 83 79 79 Respiratory Rate 17 21 26 H Blood Pressure 123/68 128/72 126/66 Pulse Oximetry 99 98 98 05/14/18 16:45 05/14/18 17:00 05/14/18 17:28 Temperature 98.3 F Pulse Rate 82 77 93 H Respiratory Rate 15 20 18 Blood Pressure 131/65 128/64 123/69 Pulse Oximetry 97 97 97 05/14/18 17:44 05/14/18 18:15 05/14/18 19:30 Temperature 98.5 F 98.5 F Pulse Rate 95 H 85 Respiratory Rate 18 18 Blood Pressure 124/82 138/85 Pulse Oximetry 94 L 96 100 05/14/18 20:00 05/14/18 21:00 05/14/18 22:00 Temperature 98.0 F Pulse Rate 87 85 93 H Respiratory Rate 23 20 23 Blood Pressure 148/88 H 119/65 159/106 H Pulse Oximetry 100 97 97 05/14/18 23:00 05/15/18 00:00 05/15/18 01:00 Temperature Pulse Rate 81 77 79 Respiratory Rate 20 17 17 Blood Pressure 131/68 142/86 H 144/66 H Pulse Oximetry 98 96 92 L 05/15/18 02:00 05/15/18 03:00 05/15/18 04:00 Temperature Pulse Rate 76 89 82 Respiratory Rate 21 16 16 Blood Pressure 136/77 127/70 137/68 Pulse Oximetry 91 L 96 94 L 05/15/18 05:00 Temperature Pulse Rate 82 Respiratory Rate 16 Blood Pressure 131/71 Pulse Oximetry 91 L Intake & Output 05/14/18 05/15/18 05/15/18 18:59 06:59 18:59 Intake Total 1350 / 1350 1100 / 1100 Output Total 1400 / 1400 1325 / 1325 Balance -50 / -50 -225 / -225 Weight 76.9 kg Intake: IV 1250 / 1250 1000 / 1000 Heparin/D5W 25,000 U/250 mL 25, 250 / 250 000 unit In 250 ml @ Per Protocol IV.CONT TITRATE PRN Rx #:[id number] NS Inj 1,000 ML @ 100 mls/hr IV 1000 / 1000 1000 / 1000 .CONT .Q10H DIONISIO Rx#:[id number] Oral 100 / 100 100 / 100 Intake (Blood Product) Amt 0 / 0 Rbc As-3 Leukoreduced Unit 0 / 0 [id number] Output: Urine Amount (Catheter) 1400 / 1400 1325 / 1325 Condom 1400 / 1400 1325 / 1325 Other: Date of Last Bowel Movement 05/12/18 05/12/18 # Bowel Movements 0 0 Result Diagrams: 05/15/18 04:26 05/15/18 04:26 Objective Remarks: GENERAL: 83-year-old male currently resting in bed in no acute distress SKIN: Warm and dry. Ecchymoses bilateral upper extremities HEAD: Atraumatic. Normocephalic. EYES: Pupils equal and round about 3 mm bilaterally reactive. No scleral icterus. No injection or drainage. ENT: No nasal bleeding or discharge. Mucous membranes pink and moist. NECK: Trachea midline. No JVD. CARDIOVASCULAR: Regular rate and rhythm. S1, S2. No S4. RESPIRATORY:. Clear to auscultation. Breath sounds equal bilaterally. GASTROINTESTINAL: Abdomen soft, non-tender, nondistended. Positive bowel sounds are appreciated. MUSCULOSKELETAL: Extremities with trace bilateral lower extremity edema NEUROLOGICAL: Awake and alert. Slight right-sided facial droop. Right upper and lower extremity subjective weaker compared r to the left side. Sensation appears intact. Assessment and Plan - Assessment and Plan Plan: Neuro/Psych: Left frontal/parietal/occipital CVA MRI of brain 05/12 revealed restricted diffusion in the periventricular and deep white matter of the left frontal, parietal and occipital lobes consistent with new, acute/subacute infarcts. The entire region of involvement is approximately 2.2 x 8.4 cm in greatest transaxial dimension. These findings are superimposed on chronic white matter ischemic changes in the same region that were acute at the time of the comparison MRI. Currently off aspirin 81 mg daily and clopidogrel 75 mg daily as of 05/12, Currently on heparin gtt. Would like to transition to warfarin per neurology. Weaned off [place]-Synephrine currently blood pressure 130-[address] of the brain revealed no acute findings. CTA revealed occluded left ICA. Collaterals from right side noted CV: Left internal carotid artery occlusion Status post right carotid enterectomy 04/[address] Oakes Essential hypertension Hyperlipidemia/elevated LDL Currently off phenylephrine drip to maintain systolic blood pressure greater than 120 for perfusion Holding home medications of valsartan and hydrochlorothiazide and attempt to increase cerebral perfusion pressures Was on losartan 100 mg daily and hydrochlorothiazide 12.5 mg daily Continue atorvastatin 80 mg daily for dyslipidemia Echocardiogram 04/24 revealed EF of 65-70%. PAP 30 mmHg Midodrine 10mg 3 times daily. Goal keep systolic pressure greater than 120. Resp: Prior history of tobacco abuse Nasal cannula to maintain saturations greater than equal to 92% Incentive spirometry while awake As needed albuterol aerosols every 2 hours as needed dyspnea GI: Hypoalbuminemia Advance diet as tolerated Pantoprazole for GI prophylaxis Docusate sodium/senna 1 tablet twice daily for bowel regimen GI performed EGD on 05/13 with duodenal inflammation no active bleeding. They okayed aspirin and heparin. Will need long-term anticoagulation : History of BPH Garcia catheter if indicated for accurate I's and O's in a critical patient Previously on tamsulosin 0.4 mg p.o. daily Endo: Sliding scale insulin Accu-Cheks every 6 hours maintain euglycemia/low regimen TSH was 1.44 Renal: Monitor urine output Accurate I's and O's Follow BMP this a.m. Heme: Leukocytosis Normocytic anemia Monitor CBC daily. Follow trends. 1 unit PRBCs ordered to keep hemoglobin above 8 g% especially since we are attempting to keep SBP greater than 120. ID: Monitor for signs and symptomatology infection MSK: PT/OT evaluate and treat FEN: Hypophosphatemia Replace electrolytes as clinically indicated per ICU electrolyte protocol Access -Left IJ CVL placed / Level 2 [facility] will sign off. Ok to transfer to neuro floor from [facility] stand point
--- NOTE | 2018-05-15 12:56 | P.PNNEU ---
Subjective Subjective Comments: No new c/o. He thinks speech is better Active Medications: Active Medications Aspirin (Aspirin Chew) 81 mg PO DAILY [facility] Last Admin: 05/12/18 10:10 Dose: Not Given Atorvastatin Calcium (Lipitor) 80 mg PO DAILY [facility] Last Admin: 05/15/18 08:42 Dose: 80 mg Gentamicin Sulfate (Gentamicin 0.3% Opth Drops) 1 drop EACH EYE TID [facility] Last Admin: 05/15/18 09:46 Dose: 1 drop Sodium Chloride (Ns Inj) 1,000 mls @ 100 mls/hr IV.CONT .Q10H [facility] Last Admin: 05/15/18 02:18 Dose: 100 mls/hr Heparin Sodium/Dextrose (Heparin/D5w 25,000 U/250 Ml) 25,000 unit in 250 mls @ 0 mls/hr IV.CONT TITRATE PRN; Protocol PRN Reason: Per Protocol Last Titration: 05/15/18 05:08 Dose: 800 units/hr, 8 mls/hr Magnesium Sulfate 4 gm/ Sodium (Chloride) 100 mls @ 50 mls/hr IV.SIG UNSCH PRN PRN Reason: For Magnesium 0.9 - 1.1 mg/dL Magnesium Sulfate 2 gm/ Sodium (Chloride) 100 mls @ 50 mls/hr IV.SIG UNSCH PRN PRN Reason: For Magnesium 1.2 - 1.6 mg/dL Potassium Chloride (Kcl 40 Meq Premix Inj) 40 meq in 100 mls @ 25 mls/hr IV.SIG Q2H PRN PRN Reason: For Potassium 2.8 - 3.2 mEq/L Potassium Chloride (Kcl 20 Meq Premix Inj) 20 meq in 100 mls @ 50 mls/hr IV.SIG Q2H PRN PRN Reason: For Potassium 3.3 - 3.5 mEq/L Potassium Chloride (Kcl 40 Meq Premix Inj) 40 meq in 100 mls @ 25 mls/hr IV.SIG UNSCH PRN PRN Reason: For Potassium 3.3 - 3.5 mEq/L Potassium Chloride (Kcl 20 Meq Premix Inj) 20 meq in 100 mls @ 50 mls/hr IV.SIG Q2H PRN PRN Reason: For Potassium 2.8 - 3.2 mEq/L Potassium Phosphate 30 mmol/ (Sodium Chloride) 260 mls @ 42 mls/hr IV.SIG UNSCH PRN PRN Reason: SEE LABEL COMMENTS Sodium Phosphate 30 mmol/ (Sodium Chloride) 260 mls @ 42 mls/hr IV.SIG UNSCH PRN PRN Reason: For Phosphorus < 2.5 mg/dL Magnesium Oxide (Mag-Ox) 800 mg PO UNSCH PRN PRN Reason: For Magnesium 1.2 - 1.6 mg/dL Midodrine (Proamatine) 10 mg PO TID [facility] Last Admin: 05/15/18 08:42 Dose: 10 mg Pantoprazole Sodium (Protonix Inj) 40 mg IV.PUSH Q12H [facility] Last Admin: 05/14/18 22:15 Dose: 40 mg Potassium Bicarb/Potassium Chloride (K-Lyte Cl Eff) 50 meq PO UNSCH PRN PRN Reason: For Potassium 3.3 - 3.5 mEq/L Potassium Phosphate (K-Phos Original) 2,000 mg PO Q4H PRN PRN Reason: Phosphorus Less Than 2.5 mg/dL Potassium Phosphate (K-Phos Original) 2,000 mg PO UNSCH PRN PRN Reason: SEE LABEL COMMENTS Sodium Chloride (Ns Flush) 2 ml IV.FLUSH BID [facility] Last Admin: 05/15/18 08:42 Dose: 2 ml Sodium Chloride (Ns Flush) 2 ml IV.FLUSH PRN PRN PRN Reason: FLUSH AFTER USING IV ACCESS Sodium Chloride (Ns Flush) 0 ml IV.FLUSH DAILY [facility] Last Admin: 05/15/18 08:43 Dose: 10 ml Tamsulosin HCl (Flomax) 0.4 mg PO DAILY [facility] Last Admin: 05/15/18 08:42 Dose: 0.4 mg Terbutaline Sulfate (Brethine Inj) 1 mg SQ UNSCH PRN PRN Reason: For Extravasation Allergies/Adverse Reactions: Allergies Allergy/AdvReac Type Severity Reaction Status Date / Time No Known Allergies Allergy Verified 04/17/18 12:44 Physical Exam Vital signs: Vital Signs 05/14/18 13:00 05/14/18 13:15 05/14/18 13:30 Temperature Pulse Rate 81 90 93 H Respiratory Rate 30 H 21 19 Blood Pressure 88/54 L 94/54 L 122/68 Pulse Oximetry 98 68 L 98 05/14/18 13:45 05/14/18 14:00 05/14/18 14:15 Temperature Pulse Rate 95 H 93 H 93 H Respiratory Rate 20 27 H 19 Blood Pressure 128/67 135/70 132/69 Pulse Oximetry 97 97 96 05/14/18 14:30 05/14/18 14:45 05/14/18 15:00 Temperature Pulse Rate 95 H 84 79 Respiratory Rate 21 23 20 Blood Pressure 135/66 127/63 Pulse Oximetry 97 97 98 05/14/18 15:15 05/14/18 15:30 05/14/18 15:45 Temperature Pulse Rate 94 H 102 H 93 H Respiratory Rate 18 31 H 18 Blood Pressure 115/56 L 140/79 126/65 Pulse Oximetry 96 98 98 05/14/18 16:00 05/14/18 16:15 05/14/18 16:30 Temperature Pulse Rate 83 79 79 Respiratory Rate 17 21 26 H Blood Pressure 123/68 128/72 126/66 Pulse Oximetry 99 98 98 05/14/18 16:45 05/14/18 17:00 05/14/18 17:28 Temperature 98.3 F Pulse Rate 82 77 93 H Respiratory Rate 15 20 18 Blood Pressure 131/65 128/64 123/69 Pulse Oximetry 97 97 97 05/14/18 17:44 05/14/18 18:15 05/14/18 19:30 Temperature 98.5 F 98.5 F Pulse Rate 95 H 85 Respiratory Rate 18 18 Blood Pressure 124/82 138/85 Pulse Oximetry 94 L 96 100 05/14/18 20:00 05/14/18 21:00 05/14/18 22:00 Temperature 98.0 F Pulse Rate 87 85 93 H Respiratory Rate 23 20 23 Blood Pressure 148/88 H 119/65 159/106 H Pulse Oximetry 100 97 97 05/14/18 23:00 05/15/18 00:00 05/15/18 01:00 Temperature Pulse Rate 81 77 79 Respiratory Rate 20 17 17 Blood Pressure 131/68 142/86 H 144/66 H Pulse Oximetry 98 96 92 L 05/15/18 02:00 05/15/18 03:00 05/15/18 04:00 Temperature Pulse Rate 76 89 82 Respiratory Rate 21 16 16 Blood Pressure 136/77 127/70 137/68 Pulse Oximetry 91 L 96 94 L 05/15/18 05:00 Temperature Pulse Rate 82 Respiratory Rate 16 Blood Pressure 131/71 Pulse Oximetry 91 L Intake & Output 1205/15/18 05/15/18 18:59 06:59 18:59 Intake Total 1350 / 1350 1100 / 1100 Output Total 1400 / 1400 1325 / 1325 Balance -50 / -50 -225 / -225 Weight 76.9 kg Intake: IV 1250 / 1250 1000 / 1000 Heparin/D5W 25,000 U/250 mL 25, 250 / 250 000 unit In 250 ml @ Per Protocol IV.CONT TITRATE PRN Rx #:[id number] Inj 1,000 ML @ 100 mls/hr IV 1000 / 1000 1000 / 1000 .CONT .Q10H [facility] Rx#:[id number] Oral 100 / 100 100 / 100 Intake (Blood Product) Amt 0 / 0 Rbc As-3 Leukoreduced Unit 0 / 0 [id number] Output: Urine Amount (Catheter) 1400 / 1400 1325 / 1325 Condom 1400 / 1400 1325 / 1325 Other: Date of Last Bowel Movement 05/12/18 05/12/18 # Bowel Movements 0 0 - Detailed Neurological Exam: Coma Scale alert, speech dysarthric. follow commands CN--right facial droop, but improved MOTOR weak RUE and RLE without change - Urinary Catheter Management Condom Cath placed during this visit: no Reason for continuing: Hourly intake/output Objective Laboratory Results - last 24 hr 05/14/18 05/14/18 05/14/18 16:00 16:00 22:30 WBC RBC Hgb Hct MCV MCH MCHC RDW Plt Count MPV Neut % (Auto) Lymph % (Auto) Colbert % (Auto) Eos % (Auto) Baso % (Auto) Neut # (Auto) Lymph # (Auto) Colbert # (Auto) Eos # (Auto) Baso # (Auto) WBC Differential Differential Comment APTT 55.6 H D 66.4 H Sodium Potassium Chloride Carbon Dioxide Anion Gap BUN Creatinine Estimated GFR Random Glucose Calcium Blood Type O Negative Antibody Screen Negative MTS Gel Crossmatch See Detail 05/15/18 05/15/18 05/15/18 04:26 04:26 04:26 WBC 10.2 RBC 3.16 L Hgb 9.3 L Hct 27.4 L MCV 86.6 MCH 29.5 MCHC 34.1 RDW 14.9 Plt Count 222 MPV 6.9 L Neut % (Auto) 77.3 H Lymph % (Auto) 12.2 Colbert % (Auto) 7.4 Eos % (Auto) 2.6 Baso % (Auto) 0.5 Neut # (Auto) 7.9 H Lymph # (Auto) 1.2 Colbert # (Auto) 0.8 Eos # (Auto) 0.3 Baso # (Auto) 0.0 WBC Differential . Differential Comment Auto diff final APTT 77.3 H Sodium 138 Potassium 3.5 Chloride 104 Carbon Dioxide 26.6 Anion Gap 7 BUN 7 Creatinine 0.64 Estimated GFR Greater than 89 Random Glucose 98 Calcium 7.7 L Blood Type Antibody Screen MTS Gel Crossmatch 05/15/18 09:00 WBC RBC Hgb Hct MCV MCH MCHC RDW Plt Count MPV Neut % (Auto) Lymph % (Auto) Colbert % (Auto) Eos % (Auto) Baso % (Auto) Neut # (Auto) Lymph # (Auto) Colbert # (Auto) Eos # (Auto) Baso # (Auto) WBC Differential Differential Comment APTT 64.4 H Sodium Potassium Chloride Carbon Dioxide Anion Gap BUN Creatinine Estimated GFR Random Glucose Calcium Blood Type Antibody Screen MTS Gel Crossmatch Review/Management - Review/Management Plan: neurologically stable Dr Serrato to resume care tomorrow
--- NOTE | 2018-05-15 14:44 | P.PNGI ---
Subjective Interval history: Patient continues to be monitored in the intensive care unit, denies any abdominal pain no nausea no vomiting more alert today Supportive family member in room <Emmanuelle Santos M - Last Filed: 05/15/18 14:45> Physical Exam Vital signs: Vital Signs 05/14/18 14:45 05/14/18 15:00 05/14/18 15:15 Temperature Pulse Rate 84 79 94 H Respiratory Rate 23 20 18 Blood Pressure 127/63 115/56 L Pulse Oximetry 97 98 96 05/14/18 15:30 05/14/18 15:45 05/14/18 16:00 Temperature Pulse Rate 102 H 93 H 83 Respiratory Rate 31 H 18 17 Blood Pressure 140/79 126/65 123/68 Pulse Oximetry 98 98 99 05/14/18 16:15 05/14/18 16:30 05/14/18 16:45 Temperature Pulse Rate 79 79 82 Respiratory Rate 21 26 H 15 Blood Pressure 128/72 126/66 131/65 Pulse Oximetry 98 98 97 05/14/18 17:00 05/14/18 17:28 05/14/18 17:44 Temperature 98.3 F 98.5 F Pulse Rate 77 93 H 95 H Respiratory Rate 20 18 18 Blood Pressure 128/64 123/69 124/82 Pulse Oximetry 97 97 94 L 05/14/18 18:15 05/14/18 19:30 05/14/18 20:00 Temperature 98.5 F 98.0 F Pulse Rate 85 87 Respiratory Rate 18 23 Blood Pressure 138/85 148/88 H Pulse Oximetry 96 100 100 05/14/18 21:00 05/14/18 22:00 05/14/18 23:00 Temperature Pulse Rate 85 93 H 81 Respiratory Rate 20 23 20 Blood Pressure 119/65 159/106 H 131/68 Pulse Oximetry 97 97 98 05/15/18 00:00 05/15/18 01:00 05/15/18 02:00 Temperature Pulse Rate 77 79 76 Respiratory Rate 17 17 21 Blood Pressure 142/86 H 144/66 H 136/77 Pulse Oximetry 96 92 L 91 L 05/15/18 03:00 05/15/18 04:00 05/15/18 05:00 Temperature Pulse Rate 89 82 82 Respiratory Rate 16 16 16 Blood Pressure 127/70 137/68 131/71 Pulse Oximetry 96 94 L 91 L Intake & Output 05/14/18 05/15/18 05/15/18 18:59 06:59 18:59 Intake Total 1350 / 1350 1100 / 1100 1000 / 1000 Output Total 1400 / 1400 1325 / 1325 Balance -50 / -50 -225 / -225 1000 / 1000 Weight 76.9 kg Intake: IV 1250 / 1250 1000 / 1000 1000 / 1000 Heparin/D5W 25,000 U/250 mL 25, 250 / 250 000 unit In 250 ml @ Per Protocol IV.CONT TITRATE PRN Rx #:[id number] NS Inj 1,000 ML @ 100 mls/hr IV 1000 / 1000 1000 / 1000 1000 / 1000 .CONT .Q10H DIONISIO Rx#:[id number] Oral 100 / 100 100 / 100 Intake (Blood Product) Amt 0 / 0 Rbc As-3 Leukoreduced Unit 0 / 0 [id number] Output: Urine Amount (Catheter) 1400 / 1400 1325 / 1325 Condom 1400 / 1400 1325 / 1325 Other: Date of Last Bowel Movement 05/12/18 05/12/18 # Bowel Movements 0 0 - Constitutional no acute distress, obese, disheveled, cooperative - Routine HEENT Exam Head: Present: normocephalic ENT: Present: mucous membranes moist - Routine Neck Exam Present: supple - Routine Cardiovascular Exam Present: S1, S2 - Routine Abdominal Exam Present: soft (Round, soft active bowel sounds, no abdominal pain, obese) - Urinary Catheter Management Condom Cath placed during this visit: no Reason for continuing: Hourly intake/output <Emmanuelle Santos - Last Filed: 05/15/18 14:45> Vital signs: Vital Signs 05/14/18 15:45 05/14/18 16:00 05/14/18 16:15 Temperature Pulse Rate 93 H 83 79 Respiratory Rate 18 17 21 Blood Pressure 126/65 123/68 128/72 Pulse Oximetry 98 99 98 05/14/18 16:30 05/14/18 16:45 05/14/18 17:00 Temperature Pulse Rate 79 82 77 Respiratory Rate 26 H 15 20 Blood Pressure 126/66 131/65 128/64 Pulse Oximetry 98 97 97 05/14/18 17:28 05/14/18 17:44 05/14/18 18:15 Temperature 98.3 F 98.5 F 98.5 F Pulse Rate 93 H 95 H 85 Respiratory Rate 18 18 18 Blood Pressure 123/69 124/82 138/85 Pulse Oximetry 97 94 L 96 05/14/18 19:30 05/14/18 20:00 05/14/18 21:00 Temperature 98.0 F Pulse Rate 87 85 Respiratory Rate 23 20 Blood Pressure 148/88 H 119/65 Pulse Oximetry 100 100 97 05/14/18 22:00 05/14/18 23:00 05/15/18 00:00 Temperature Pulse Rate 93 H 81 77 Respiratory Rate 23 20 17 Blood Pressure 159/106 H 131/68 142/86 H Pulse Oximetry 97 98 96 05/15/18 01:00 05/15/18 02:00 05/15/18 03:00 Temperature Pulse Rate 79 76 89 Respiratory Rate 17 21 16 Blood Pressure 144/66 H 136/77 127/70 Pulse Oximetry 92 L 91 L 96 05/15/18 04:00 05/15/18 05:00 Temperature Pulse Rate 82 82 Respiratory Rate 16 16 Blood Pressure 137/68 131/71 Pulse Oximetry 94 L 91 L Intake & Output 05/14/18 05/15/18 05/15/18 18:59 06:59 18:59 Intake Total 1350 / 1350 1100 / 1100 1000 / 1000 Output Total 1400 / 1400 1325 / 1325 Balance -50 / -50 -225 / -225 1000 / 1000 Weight 76.9 kg Intake: IV 1250 / 1250 1000 / 1000 1000 / 1000 Heparin/D5W 25,000 U/250 mL 25, 250 / 250 000 unit In 250 ml @ Per Protocol IV.CONT TITRATE PRN Rx #:[id number] NS Inj 1,000 ML @ 100 mls/hr IV 1000 / 1000 1000 / 1000 1000 / 1000 .CONT .Q10H DIONISIO Rx#:[id number] Oral 100 / 100 100 / 100 Intake (Blood Product) Amt 0 / 0 Rbc As-3 Leukoreduced Unit 0 / 0 [id number] Output: Urine Amount (Catheter) 1400 / 1400 1325 / 1325 Condom 1400 / 1400 1325 / 1325 Other: Date of Last Bowel Movement 05/12/18 05/12/18 # Bowel Movements 0 0 - Urinary Catheter Management Condom Cath placed during this visit: no <Patricia Sun - Last Filed: 12/09/18 15:33> Results - Labs CBC & Chem 7: 05/15/18 04:26 05/15/18 04:26 Laboratory Results - last 24 hr 05/14/18 05/14/18 05/14/18 16:00 16:00 22:30 WBC RBC Hgb Hct MCV MCH MCHC RDW Plt Count MPV Neut % (Auto) Lymph % (Auto) [place] % (Auto) Eos % (Auto) Baso % (Auto) Neut # (Auto) Lymph # (Auto) [place] # (Auto) Eos # (Auto) Baso # (Auto) WBC Differential Differential Comment APTT 55.6 H D 66.4 H Sodium Potassium Chloride Carbon Dioxide Anion Gap BUN Creatinine Estimated GFR Random Glucose Calcium Blood Type O Negative Antibody Screen Negative MTS Gel Crossmatch See Detail 05/15/18 05/15/18 05/15/18 04:26 04:26 04:26 WBC 10.2 RBC 3.16 L Hgb 9.3 L Hct 27.4 L MCV 86.6 MCH 29.5 MCHC 34.1 RDW 14.9 Plt Count 222 MPV 6.9 L Neut % (Auto) 77.3 H Lymph % (Auto) 12.2 [place] % (Auto) 7.4 Eos % (Auto) 2.6 Baso % (Auto) 0.5 Neut # (Auto) 7.9 H Lymph # (Auto) 1.2 [place] # (Auto) 0.8 Eos # (Auto) 0.3 Baso # (Auto) 0.0 WBC Differential . Differential Comment Auto diff final APTT 77.3 H Sodium 138 Potassium 3.5 Chloride 104 Carbon Dioxide 26.6 Anion Gap 7 BUN 7 Creatinine 0.64 Estimated GFR Greater than 89 Random Glucose 98 Calcium 7.7 L Blood Type Antibody Screen MTS Gel Crossmatch 05/15/18 09:00 WBC RBC Hgb Hct MCV MCH MCHC RDW Plt Count MPV Neut % (Auto) Lymph % (Auto) [place] % (Auto) Eos % (Auto) Baso % (Auto) Neut # (Auto) Lymph # (Auto) [place] # (Auto) Eos # (Auto) Baso # (Auto) WBC Differential Differential Comment APTT 64.4 H Sodium Potassium Chloride Carbon Dioxide Anion Gap BUN Creatinine Estimated GFR Random Glucose Calcium Blood Type Antibody Screen MTS Gel Crossmatch - Imaging Impressions Abdomen/Pelvis CT 05/14/18 00:00 CONCLUSION: 1. No acute abnormality is identified to explain the clinical symptoms. Examination quality is mildly degraded by respiratory motion artifact. 2. 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 <DanielleEmmanuelle Casey - Last Filed: 05/15/18 14:45> - Labs CBC & Chem 7: 05/15/18 04:26 05/15/18 04:26 Laboratory Results - last 24 hr 05/14/18 05/14/18 05/14/18 16:00 16:00 22:30 WBC RBC Hgb Hct MCV MCH MCHC RDW Plt Count MPV Neut % (Auto) Lymph % (Auto) [place] % (Auto) Eos % (Auto) Baso % (Auto) Neut # (Auto) Lymph # (Auto) [place] # (Auto) Eos # (Auto) Baso # (Auto) WBC Differential Differential Comment APTT 55.6 H D 66.4 H Sodium Potassium Chloride Carbon Dioxide Anion Gap BUN Creatinine Estimated GFR Random Glucose Calcium Blood Type O Negative Antibody Screen Negative MTS Gel Crossmatch See Detail 05/15/18 05/15/18 05/15/18 04:26 04:26 04:26 WBC 10.2 RBC 3.16 L Hgb 9.3 L Hct 27.4 L MCV 86.6 MCH 29.5 MCHC 34.1 RDW 14.9 Plt Count 222 MPV 6.9 L Neut % (Auto) 77.3 H Lymph % (Auto) 12.2 [place] % (Auto) 7.4 Eos % (Auto) 2.6 Baso % (Auto) 0.5 Neut # (Auto) 7.9 H Lymph # (Auto) 1.2 [place] # (Auto) 0.8 Eos # (Auto) 0.3 Baso # (Auto) 0.0 WBC Differential . Differential Comment Auto diff final APTT 77.3 H Sodium 138 Potassium 3.5 Chloride 104 Carbon Dioxide 26.6 Anion Gap 7 BUN 7 Creatinine 0.64 Estimated GFR Greater than 89 Random Glucose 98 Calcium 7.7 L Blood Type Antibody Screen MTS Gel Crossmatch 05/15/18 09:00 WBC RBC Hgb Hct MCV MCH MCHC RDW Plt Count MPV Neut % (Auto) Lymph % (Auto) [place] % (Auto) Eos % (Auto) Baso % (Auto) Neut # (Auto) Lymph # (Auto) [place] # (Auto) Eos # (Auto) Baso # (Auto) WBC Differential Differential Comment APTT 64.4 H Sodium Potassium Chloride Carbon Dioxide Anion Gap BUN Creatinine Estimated GFR Random Glucose Calcium Blood Type Antibody Screen MTS Gel Crossmatch - Imaging Impressions Abdomen/Pelvis CT 05/14/18 00:00 CONCLUSION: 1. No acute abnormality is identified to explain the clinical symptoms. Examination quality is mildly degraded by respiratory motion artifact. 2. 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 <Patricia Sun - Last Filed: 05/15/18 15:33> Assessment and Plan (1) Heme positive stool Status: Acute Code(s): R19.5 - Other fecal abnormalities - Plan Patient is an 83-year-old male who presented to the emergency department at [facility] as a stroke alert. Patient medical history significant for acute CVA, hypertension, or carotid artery stenosis, dysarthria and BPH. Patient suffered a stroke 3 weeks ago. Currently patient has right-sided weakness and aphasia. Patient currently on heparin drip and was on Plavix prior to admission. Last dose of Plavix noted 05/11/2018. Our service has been consulted to evaluate patient for heme positive stools. Upon consultation, patient spouse endorses that patient has had dark stools for the last 3-4 days while in the rehab center. She reports that he has had no complaints of nausea or vomiting but did endorse some lower abdominal discomfort. His spouse denies any known change in bowel habits. She denies knowledge of patient ever having had an EGD or colonoscopy in the past. Past medical history is significant for tonsillectomy as a child and right knee repair as an adult. She denies any known family history for gastrointestinal issues and states that patient does not smoke or use alcohol products Heme positive stools Spouse endorses onset of dark stools 3-4 days prior to admission. Patient post acute CVA currently on heparin infusion. Patient was on Plavix 75 mg p.o. daily. Last noted dose 05/11/2018. (05/11) hemoglobin 10.1 hematocrit 28.8 ,05/13/2018 hemoglobin 8.0 hematocrit 22.9 platelet count 247 INR 1.1. * BP presently 96/51 [place]-Synephrine infusing. 05/14/2018 patient is awake but randomly moves around in the bed answered a couple of simple questions but otherwise still appears to have some altered mental status. Questionable tolerance to nuclear medicine scan or bleeding scan. Off Plavix for now melena stools noted approximately 2 days ago but last stool noted brown soft semi-loose no obvious bleeding. Colonoscopy according to family was approximately [address] Walden, has not seen patient since. N.p.o. this a.m. and heparin drip has been held but cannot do colonoscopy today without prep. Family seems to want aggressive GI care if it will allow patient to have some quality of life. Will consider colonoscopy probable Wednesday as long as okay with neurology and BP remains systolic greater than 140. Status post EGD on 05/13/2018 there was [place] Class B esophagitis noted. 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 The stricture was traversable. STOMACH: The mucosa of the stomach appeared normal. Erosive duodenitis. Could be contributing to drop in hemoglobin. No further melena stools noted DUODENUM: Moderate duodenal inflammation was found in the duodenal bulb. Hiatal hernia, Hemoglobin appears to be fairly stable at 7.9 for now 05/15/2018 patient appears to be stronger today and more alert denies any nausea vomiting or abdominal pain. Neuro and Dr. Sun discussed timing of colonoscopy. Recommendation was in the next few weeks unless patient has active bleeding. Patient is currently n.p.o. and needs speech evaluation for swallow , hemoglobin now 9.3, stable no obvious rectal bleeding we will continue to monitor Plan Diet, n.p.o. speech therapy for recommendations for diet Monitor for any rectal bleeding or hematemesis or melena stools Plan colonoscopy after patient is stable within the next few weeks Monitor labs Consider colonoscopy Wednesday, or in a.m. dependent on scheduling and input from neurology. Monitor labs PPI, Zofran as needed Okay for ASA 81 mg daily Bowel regimen as needed Supportive care Patient was seen per myself and Dr. Sun, note was written on her behalf <Emmanuelle Santos - Last Filed: 05/15/18 14:45> (1) Heme positive stool Status: Acute Code(s): R19.5 - Other fecal abnormalities - Attending Attestation seen, examined agree with above discussed with dr jaramillo, recommended to waith few weeks for colonoscopy unless emergency speech therapy eval to determine diet <Patricia Sun - Last Filed: 05/15/18 15:33>
[2018-05-15] MEDS: Heparin Drip 25,000 UNIT/250 ML BAG IV.CONT PRN (19:28)
[2018-05-16 04:26] LABS: Baso # (Auto) 0.1 th/mm3 (0.0-0.2); Baso % (Auto) 0.6 % (0.0-2.0); Eos # (Auto) 0.3 th/mm3 (0.0-0.4); Eos % (Auto) 2.6 % (0.0-4.0); Hemoglobin 9.5 gm/dL (13.0-17.0); Lymph # (Auto) 1.3 th/mm3 (1.0-4.8); Lymph % (Auto) 12.6 % (9.0-44.0); Mean Corpuscular HGB Conc 35.1 % (32.0-36.0); Mean Corpuscular Hemoglobin 30.7 pg (27.0-34.0); Mean Corpuscular Volume 87.5 fL (80.0-100.0); Mean Platelet Volume 6.9 fL (7.0-11.0); Mono # (Auto) 0.6 th/mm3 (0.0-0.9); Mono % (Auto) 6.1 % (0.0-8.0); Neut % (Auto) 78.1 % (16.0-70.0); Platelet Count 212 th/mm3 (150-450); Red Blood Count 3.09 mil/mm3 (4.50-5.90); Red Cell Distribution Width 14.9 % (11.6-17.2); White Blood Count 10.2 th/mm3 (4.0-11.0)
[2018-05-16 04:43] LABS: Anion Gap 10 meq/L (5-15); Blood Urea Nitrogen 11 mg/dL (7-18); Calcium 8.2 mg/dL (8.5-10.1); Carbon Dioxide 23.3 meq/L (21.0-32.0); Chloride 104 meq/L (98-107); Glomerular Filtration Rate Greater Than 89 mL/min (>89); Glucose,Random 81 mg/dL (74-106); Potassium 3.3 meq/L (3.5-5.1); Sodium 137 meq/L (136-145)
[2018-05-16] MEDS: Sod Chloride 0.9% Inj 1,000 ML IV.CONT SCH ×3 (06:07→16:48)
--- NOTE | 2018-05-16 08:56 | P.PNNEU ---
Subjective Active Medications: Active Medications Aspirin (Aspirin Chew) 81 mg PO DAILY [facility] Last Admin: 05/12/18 10:10 Dose: Not Given Atorvastatin Calcium (Lipitor) 80 mg PO DAILY [facility] Last Admin: 05/15/18 08:42 Dose: 80 mg Gentamicin Sulfate (Gentamicin 0.3% Opth Drops) 1 drop EACH EYE TID [facility] Last Admin: 05/15/18 19:28 Dose: 1 drop Sodium Chloride (Ns Inj) 1,000 mls @ 100 mls/hr IV.CONT .Q10H [facility] Last Admin: 05/16/18 06:07 Dose: 100 mls/hr Heparin Sodium/Dextrose (Heparin/D5w 25,000 U/250 Ml) 25,000 unit in 250 mls @ 0 mls/hr IV.CONT TITRATE PRN; Protocol PRN Reason: Per Protocol Last Admin: 05/15/18 19:28 Dose: 800 units/hr, 8 mls/hr Magnesium Sulfate 4 gm/ Sodium (Chloride) 100 mls @ 50 mls/hr IV.SIG UNSCH PRN PRN Reason: For Magnesium 0.9 - 1.1 mg/dL Magnesium Sulfate 2 gm/ Sodium (Chloride) 100 mls @ 50 mls/hr IV.SIG UNSCH PRN PRN Reason: For Magnesium 1.2 - 1.6 mg/dL Potassium Chloride (Kcl 40 Meq Premix Inj) 40 meq in 100 mls @ 25 mls/hr IV.SIG Q2H PRN PRN Reason: For Potassium 2.8 - 3.2 mEq/L Potassium Chloride (Kcl 20 Meq Premix Inj) 20 meq in 100 mls @ 50 mls/hr IV.SIG Q2H PRN PRN Reason: For Potassium 3.3 - 3.5 mEq/L Potassium Chloride (Kcl 40 Meq Premix Inj) 40 meq in 100 mls @ 25 mls/hr IV.SIG UNSCH PRN PRN Reason: For Potassium 3.3 - 3.5 mEq/L Last Admin: 05/16/18 06:10 Dose: 25 mls/hr Potassium Chloride (Kcl 20 Meq Premix Inj) 20 meq in 100 mls @ 50 mls/hr IV.SIG Q2H PRN PRN Reason: For Potassium 2.8 - 3.2 mEq/L Potassium Phosphate 30 mmol/ (Sodium Chloride) 260 mls @ 42 mls/hr IV.SIG UNSCH PRN PRN Reason: SEE LABEL COMMENTS Sodium Phosphate 30 mmol/ (Sodium Chloride) 260 mls @ 42 mls/hr IV.SIG UNSCH PRN PRN Reason: For Phosphorus < 2.5 mg/dL Magnesium Oxide (Mag-Ox) 800 mg PO UNSCH PRN PRN Reason: For Magnesium 1.2 - 1.6 mg/dL Midodrine (Proamatine) 10 mg PO TID [facility] Last Admin: 05/15/18 18:56 Dose: 10 mg Pantoprazole Sodium (Protonix Inj) 40 mg IV.PUSH Q12H [facility] Last Admin: 05/15/18 21:25 Dose: 40 mg Potassium Bicarb/Potassium Chloride (K-Lyte Cl Eff) 50 meq PO UNSCH PRN PRN Reason: For Potassium 3.3 - 3.5 mEq/L Potassium Phosphate (K-Phos Original) 2,000 mg PO Q4H PRN PRN Reason: Phosphorus Less Than 2.5 mg/dL Potassium Phosphate (K-Phos Original) 2,000 mg PO UNSCH PRN PRN Reason: SEE LABEL COMMENTS Sodium Chloride (Ns Flush) 2 ml IV.FLUSH BID [facility] Last Admin: 05/15/18 21:25 Dose: Not Given Sodium Chloride (Ns Flush) 2 ml IV.FLUSH PRN PRN PRN Reason: FLUSH AFTER USING IV ACCESS Sodium Chloride (Ns Flush) 0 ml IV.FLUSH DAILY [facility] Last Admin: 05/15/18 08:43 Dose: 10 ml Tamsulosin HCl (Flomax) 0.4 mg PO DAILY [facility] Last Admin: 05/15/18 08:42 Dose: 0.4 mg Terbutaline Sulfate (Brethine Inj) 1 mg SQ UNSCH PRN PRN Reason: For Extravasation Allergies/Adverse Reactions: Allergies Allergy/AdvReac Type Severity Reaction Status Date / Time No Known Allergies Allergy Verified 04/17/18 12:44 Physical Exam Vital signs: Vital Signs 05/15/18 12:15 05/15/18 12:30 05/15/18 12:45 Temperature Pulse Rate 75 92 H 77 Respiratory Rate 21 35 H 25 H Blood Pressure 138/64 144/68 H 127/61 Pulse Oximetry 95 98 99 05/15/18 13:00 05/15/18 13:15 05/15/18 13:30 Temperature Pulse Rate 82 95 H 95 H Respiratory Rate 20 43 H 22 Blood Pressure 131/67 130/67 139/72 Pulse Oximetry 97 96 97 05/15/18 13:32 05/15/18 13:33 05/15/18 13:45 Temperature Pulse Rate 93 H 92 H 94 H Respiratory Rate 20 16 22 Blood Pressure 143/80 H 142/76 H 135/71 Pulse Oximetry 97 96 96 05/15/18 14:00 05/15/18 14:15 05/15/18 14:30 Temperature 98.2 F Pulse Rate 85 80 95 H Respiratory Rate 16 16 19 Blood Pressure 134/64 130/65 156/84 H Pulse Oximetry 96 96 96 05/15/18 14:45 05/15/18 15:00 05/15/18 15:15 Temperature 98.7 F Pulse Rate 94 H 92 H 93 H Respiratory Rate 23 18 16 Blood Pressure 142/72 H 136/70 135/75 Pulse Oximetry 98 99 97 05/15/18 15:30 05/15/18 15:45 05/15/18 16:00 Temperature 98.0 F Pulse Rate 89 84 81 Respiratory Rate 15 16 14 Blood Pressure 133/82 124/58 L 125/61 Pulse Oximetry 96 97 98 05/15/18 16:15 05/15/18 16:30 05/15/18 16:45 Temperature Pulse Rate 83 76 77 Respiratory Rate 16 14 15 Blood Pressure 130/64 128/62 126/64 Pulse Oximetry 97 97 98 05/15/18 17:00 05/15/18 17:15 05/15/18 17:30 Temperature Pulse Rate 78 95 H 95 H Respiratory Rate 14 17 24 Blood Pressure 136/72 136/72 135/69 Pulse Oximetry 97 97 97 05/15/18 17:45 05/15/18 19:49 05/15/18 20:00 Temperature Pulse Rate 82 78 Respiratory Rate 16 Blood Pressure 125/61 Pulse Oximetry 96 97 100 05/15/18 23:15 05/15/18 23:30 05/15/18 23:45 Temperature 98.6 F Pulse Rate 82 78 84 Respiratory Rate 14 22 Blood Pressure 147/76 H 126/63 129/69 Pulse Oximetry 97 96 100 05/16/18 00:00 05/16/18 00:15 05/16/18 00:30 Temperature Pulse Rate 81 84 86 Respiratory Rate 23 22 22 Blood Pressure 127/66 132/68 131/61 Pulse Oximetry 99 98 96 05/16/18 00:45 05/16/18 01:00 05/16/18 01:15 Temperature Pulse Rate 101 H 80 80 Respiratory Rate 22 22 16 Blood Pressure 157/74 H 139/64 148/70 H Pulse Oximetry 99 98 96 05/16/18 01:30 05/16/18 01:45 05/16/18 02:00 Temperature Pulse Rate 82 87 85 Respiratory Rate 23 16 21 Blood Pressure 146/80 H 143/71 H 159/75 H Pulse Oximetry 97 98 100 05/16/18 02:15 05/16/18 02:30 05/16/18 02:45 Temperature Pulse Rate 80 91 H Respiratory Rate 23 20 18 Blood Pressure 140/62 139/63 130/66 Pulse Oximetry 96 97 97 05/16/18 03:00 05/16/18 03:15 05/16/18 03:30 Temperature Pulse Rate 84 89 90 Respiratory Rate 15 16 16 Blood Pressure 128/70 121/67 122/70 Pulse Oximetry 98 96 98 05/16/18 03:45 05/16/18 04:00 05/16/18 04:15 Temperature 98.3 F Pulse Rate 98 H 98 H 89 Respiratory Rate 22 16 15 Blood Pressure 156/86 H 157/66 H 141/65 H Pulse Oximetry 99 97 96 05/16/18 04:30 05/16/18 04:45 05/16/18 05:00 Temperature Pulse Rate 84 90 98 H Respiratory Rate 14 16 Blood Pressure 144/67 H 147/72 H 147/75 H Pulse Oximetry 98 100 100 05/16/18 05:15 05/16/18 08:31 Temperature Pulse Rate 81 Respiratory Rate 24 Blood Pressure 146/79 H Pulse Oximetry 95 99 Intake & Output 05/15/18 05/16/18 05/16/18 18:59 06:59 18:59 Intake Total 1770 / 1770 1999 Output Total 650 / 650 1500 / 1500 Balance 1120 / 1120 500 / 500 Weight 78.5 kg Intake: IV 1350 / 1350 1999 Heparin/D5W 25,000 U/250 mL 25, 250 / 250 000 unit In 250 ml @ Per Protocol IV.CONT TITRATE PRN Rx #:[id number] Neosynephrine Inj 160 MG In NS 100 / 100 Inj 484 ML @ 40 MCG/MIN 7.5 mls /hr IV.CONT TITRATE PRN Rx#: [id number] NS Inj 1,000 ML @ 100 mls/hr IV 1000 / 1000 1999 / 1999 .CONT .Q10H DIONISIO Rx#:[id number] Oral 420 / 420 Output: Urine Amount (Catheter) 650 / 650 1500 / 1500 Condom 650 / 650 1500 / 1500 Other: Date of Last Bowel Movement 05/12/18 05/12/18 # Bowel Movements 0 # Incontinent Bowel Movements 1 Narrative: sr stuck out tersa for me mild 5-/5 rhp awake alert mild r droop still apahsic - Urinary Catheter Management Condom Cath placed during this visit: no Reason for continuing: Hourly intake/output Objective Laboratory Results - last 24 hr 05/15/18 05/15/18 05/16/18 09:00 16:15 04:00 WBC 10.2 RBC 3.09 L Hgb 9.5 L Hct 27.0 L MCV 87.5 MCH 30.7 MCHC 35.1 RDW 14.9 Plt Count 212 MPV 6.9 L Neut % (Auto) 78.1 H Lymph % (Auto) 12.6 [place] % (Auto) 6.1 Eos % (Auto) 2.6 Baso % (Auto) 0.6 Neut # (Auto) 8.0 H Lymph # (Auto) 1.3 [place] # (Auto) 0.6 Eos # (Auto) 0.3 Baso # (Auto) 0.1 WBC Differential . Differential Comment Auto diff final APTT 64.4 H 62.5 H Sodium Potassium Chloride Carbon Dioxide Anion Gap BUN Creatinine Estimated GFR Random Glucose Calcium 05/16/18 05/16/18 04:00 04:00 WBC RBC Hgb Hct MCV MCH MCHC RDW Plt Count MPV Neut % (Auto) Lymph % (Auto) [place] % (Auto) Eos % (Auto) Baso % (Auto) Neut # (Auto) Lymph # (Auto) [place] # (Auto) Eos # (Auto) Baso # (Auto) WBC Differential Differential Comment APTT 65.9 H Sodium 137 Potassium 3.3 L Chloride 104 Carbon Dioxide 23.3 Anion Gap 10 BUN 11 Creatinine 0.73 Estimated GFR Greater than 89 Random Glucose 81 Calcium 8.2 L Review/Management - Review/Management Plan: neurologically stable Dr Serrato to resume care tomorrow 05/16/18 doing a little better apparently egd neg ok by me for colonoscopy as long as bp kept up needed txfusion bp better on midodrine I WOULD LIKE LOOP PLACED BY CARDS oob
[2018-05-16] MEDS: Pantoprazole Inj 40 MG Vial IV.PUSH SCH ×2 (09:51→21:01)
[2018-05-16] MEDS: Gentamicin 0.3% Opth Drops 5 ML Bottle EACH EYE SCH ×3 (09:53→17:42)
--- NOTE | 2018-05-16 12:10 | P.PNFP ---
Subjective Interval history: There were no acute events overnight. He was off the Levophed drip yesterday around noon and has been meeting his blood pressure goal of SBP: 120. He does have some itching of the left eye. Full review of systems is unable to complete a due to his mental status. <Luis Antonio Ann - 05/16/18 12:10> Results - Labs Result diagrams: 05/18/18 08:34 05/18/18 08:34 <Facundo Thomas - 05/18/18 13:38> Abnormal lab results 05/18/18 05/18/18 05/18/18 Range/Units 04:12 04:12 08:34 RBC 3.33 L (4.50-5.90) mil/mm3 Hgb 10.3 L (13.0-17.0) gm/dL Hct 29.5 L (39.0-51.0) % Neut % (Auto) 78.1 H (16.0-70.0) % PT 31.9 H D (9.8-11.6) sec APTT 68.5 H (23.4-31.7) sec Random Glucose (74-106) mg/dL 05/18/18 Range/Units 08:34 RBC (4.50-5.90) mil/mm3 Hgb (13.0-17.0) gm/dL Hct (39.0-51.0) % Neut % (Auto) (16.0-70.0) % PT (9.8-11.6) sec APTT (23.4-31.7) sec Random Glucose 125 H (74-106) mg/dL Short CBC 05/18/18 Range/Units 08:34 WBC 8.7 (4.0-11.0) th/mm3 Hgb 10.3 L (13.0-17.0) gm/dL Hct 29.5 L (39.0-51.0) % Plt Count 212 (150-450) th/mm3 BMP 05/18/18 08:34 Sodium 139 Potassium 3.5 Chloride 105 Carbon Dioxide 25.5 BUN 7 Creatinine 0.65 Calcium 8.5 D Urine 05/17/18 Range/Units 18:00 Urine Color Yellow (Yellw/Straw) Urine Clarity Clear (Clear) Urine pH 7.0 (5.0-8.5) Ur Specific Maceo 1.004 (1.002-1.035) Urine Protein Negative (Neg-Trace) mg/dL Urine Glucose (UA) Negative (Negative) mg/dL <Facundo Thomas - 05/18/18 13:38> Abnormal lab results 05/15/18 05/16/18 05/16/18 Range/Units 16:15 04:00 04:00 RBC 3.09 L (4.50-5.90) mil/mm3 Hgb 9.5 L (13.0-17.0) gm/dL Hct 27.0 L (39.0-51.0) % MPV 6.9 L (7.0-11.0) fL Neut % (Auto) 78.1 H (16.0-70.0) % Neut # (Auto) 8.0 H (1.8-7.7) th/mm3 APTT 62.5 H 65.9 H (23.4-31.7) sec Potassium (3.5-5.1) meq/L Calcium (8.5-10.1) mg/dL 05/16/18 Range/Units 04:00 RBC (4.50-5.90) mil/mm3 Hgb (13.0-17.0) gm/dL Hct (39.0-51.0) % MPV (7.0-11.0) fL Neut % (Auto) (16.0-70.0) % Neut # (Auto) (1.8-7.7) th/mm3 APTT (23.4-31.7) sec Potassium 3.3 L (3.5-5.1) meq/L Calcium 8.2 L (8.5-10.1) mg/dL Short CBC 05/16/18 Range/Units 04:00 WBC 10.2 (4.0-11.0) th/mm3 Hgb 9.5 L (13.0-17.0) gm/dL Hct 27.0 L (39.0-51.0) % Plt Count 212 (150-450) th/mm3 BMP 05/16/18 04:00 Sodium 137 Potassium 3.3 L Chloride 104 Carbon Dioxide 23.3 BUN 11 Creatinine 0.73 Calcium 8.2 L <Luis Antonio Ann - 05/16/18 12:10> Physical Exam Vital signs: Vital Signs 05/17/18 13:45 05/17/18 14:00 05/17/18 14:01 Temperature Pulse Rate 102 H 105 H 103 H Respiratory Rate Blood Pressure 142/72 H Pulse Oximetry 97 97 96 05/17/18 14:15 05/17/18 14:30 05/17/18 14:45 Temperature Pulse Rate 98 H 95 H 74 Respiratory Rate Blood Pressure Pulse Oximetry 97 97 97 05/17/18 15:00 05/17/18 15:01 05/17/18 15:15 Temperature Pulse Rate 90 89 85 Respiratory Rate Blood Pressure 119/63 Pulse Oximetry 96 96 96 05/17/18 15:30 05/17/18 15:45 05/17/18 16:00 Temperature Pulse Rate 66 63 76 Respiratory Rate 16 Blood Pressure Pulse Oximetry 97 99 99 05/17/18 16:01 05/17/18 16:15 05/17/18 16:30 Temperature Pulse Rate 83 62 66 Respiratory Rate Blood Pressure 131/80 Pulse Oximetry 98 98 98 05/17/18 16:45 05/17/18 17:00 05/17/18 17:01 Temperature Pulse Rate 50 L 51 L 51 L Respiratory Rate 16 15 15 Blood Pressure 132/70 Pulse Oximetry 97 98 97 05/17/18 17:15 05/17/18 17:30 05/17/18 17:45 Temperature Pulse Rate 81 86 Respiratory Rate 17 17 Blood Pressure Pulse Oximetry 98 97 97 05/17/18 18:00 05/17/18 18:01 05/17/18 18:15 Temperature Pulse Rate 94 H 77 96 H Respiratory Rate 17 17 19 Blood Pressure 150/83 H Pulse Oximetry 97 97 97 05/17/18 18:30 05/17/18 18:45 05/17/18 19:00 Temperature Pulse Rate 101 H 81 103 H Respiratory Rate 16 16 18 Blood Pressure Pulse Oximetry 97 97 96 05/17/18 19:01 05/17/18 19:15 05/17/18 19:30 Temperature Pulse Rate 94 H 75 97 H Respiratory Rate 27 H 18 17 Blood Pressure 133/69 Pulse Oximetry 98 97 98 05/17/18 19:45 05/17/18 20:00 05/17/18 20:01 Temperature 99.0 F Pulse Rate 67 89 71 Respiratory Rate 15 16 16 Blood Pressure 129/74 124/73 Pulse Oximetry 97 96 99 05/17/18 20:15 05/17/18 20:30 05/17/18 20:45 Temperature Pulse Rate 93 H 95 H 99 H Respiratory Rate 17 17 29 H Blood Pressure Pulse Oximetry 97 97 98 05/17/18 21:00 05/17/18 21:01 05/17/18 21:15 Temperature Pulse Rate 88 89 95 H Respiratory Rate 15 15 19 Blood Pressure 129/74 Pulse Oximetry 97 97 97 05/17/18 21:30 05/17/18 21:45 05/17/18 22:00 Temperature Pulse Rate 86 82 82 Respiratory Rate 14 14 15 Blood Pressure Pulse Oximetry 96 99 82 L 05/17/18 22:01 05/17/18 22:15 05/17/18 22:30 Temperature Pulse Rate 83 83 98 H Respiratory Rate 13 13 20 Blood Pressure 129/64 Pulse Oximetry 99 98 98 05/17/18 22:45 05/17/18 23:00 05/17/18 23:01 Temperature Pulse Rate 86 85 85 Respiratory Rate 14 14 14 Blood Pressure 133/68 Pulse Oximetry 97 97 97 05/17/18 23:15 05/17/18 23:30 05/17/18 23:45 Temperature Pulse Rate 84 80 104 H Respiratory Rate 13 13 17 Blood Pressure Pulse Oximetry 97 98 99 05/18/18 00:00 05/18/18 00:01 05/18/18 00:15 Temperature 98.7 F Pulse Rate 88 87 83 Respiratory Rate 14 18 13 Blood Pressure 132/67 132/67 Pulse Oximetry 98 98 98 05/18/18 00:30 05/18/18 00:45 05/18/18 01:00 Temperature Pulse Rate 95 H 90 87 Respiratory Rate 19 14 14 Blood Pressure Pulse Oximetry 99 97 97 05/18/18 01:01 05/18/18 01:15 05/18/18 01:30 Temperature Pulse Rate 87 82 93 H Respiratory Rate 19 13 19 Blood Pressure 135/75 Pulse Oximetry 96 98 100 05/18/18 01:45 05/18/18 02:00 05/18/18 02:01 Temperature Pulse Rate 84 79 80 Respiratory Rate 12 15 16 Blood Pressure 128/82 Pulse Oximetry 98 99 99 05/18/18 02:15 05/18/18 02:30 05/18/18 02:45 Temperature Pulse Rate 106 H 96 H 96 H Respiratory Rate 33 H 13 22 Blood Pressure Pulse Oximetry 99 98 97 05/18/18 03:00 05/18/18 03:01 05/18/18 03:15 Temperature Pulse Rate 96 H 95 H 97 H Respiratory Rate 16 17 20 Blood Pressure 129/77 Pulse Oximetry 97 98 97 05/18/18 03:30 05/18/18 03:45 05/18/18 04:00 Temperature 98.9 F Pulse Rate 95 H 85 86 Respiratory Rate 17 13 13 Blood Pressure 132/78 Pulse Oximetry 97 96 97 05/18/18 04:01 05/18/18 04:15 05/18/18 04:30 Temperature Pulse Rate 86 90 87 Respiratory Rate 13 16 14 Blood Pressure 132/78 Pulse Oximetry 96 96 97 05/18/18 08:00 Temperature Pulse Rate 87 Respiratory Rate 14 Blood Pressure Pulse Oximetry 97 Intake & Output 05/17/18 05/18/18 05/18/18 18:59 06:59 18:59 Intake Total 1830 / 1830 120 / 120 250 / 250 Output Total 1700 / 1700 0 / 0 Balance 130 / 130 120 / 120 250 / 250 Weight 76.4 kg Intake: IV 1300 / 1300 250 / 250 Heparin/D5W 25,000 U/250 mL 25, 250 / 250 000 unit In 250 ml @ Per Protocol IV.CONT TITRATE PRN Rx #:[id number] NS Inj 1,000 ML @ 100 mls/hr IV 1300 / 1300 .CONT .Q10H DIONISIO Rx#:[id number] Oral 480 / 480 120 / 120 Anesthesia Amount 50 / 50 Output: Urine 250 / 250 Stool 0 / 0 Urine Amount (Catheter) 1450 / 1450 Condom 1450 / 1450 Other: # Voids 2 # Incontinent Voids 2 # Urine Diapers 1 Date of Last Bowel Movement 05/12/18 05/12/18 05/12/18 # Bowel Movements 0 # Incontinent Bowel Movements 1 <Facundo Thomas - 05/18/18 13:38> Vital Signs 05/15/18 12:15 05/15/18 12:30 05/15/18 12:45 Temperature Pulse Rate 75 92 H 77 Respiratory Rate 21 35 H 25 H Blood Pressure 138/64 144/68 H 127/61 Pulse Oximetry 95 98 99 05/15/18 13:00 12/09/18 13:15 05/15/18 13:30 Temperature Pulse Rate 82 95 H 95 H Respiratory Rate 20 43 H 22 Blood Pressure 131/67 130/67 139/72 Pulse Oximetry 97 96 97 05/15/18 13:32 05/15/18 13:33 05/15/18 13:45 Temperature Pulse Rate 93 H 92 H 94 H Respiratory Rate 20 16 22 Blood Pressure 143/80 H 142/76 H 135/71 Pulse Oximetry 97 96 96 05/15/18 14:00 05/15/18 14:15 05/15/18 14:30 Temperature 98.2 F Pulse Rate 85 80 95 H Respiratory Rate 16 16 19 Blood Pressure 134/64 130/65 156/84 H Pulse Oximetry 96 96 96 05/15/18 14:45 05/15/18 15:00 05/15/18 15:15 Temperature 98.7 F Pulse Rate 94 H 92 H 93 H Respiratory Rate 23 18 16 Blood Pressure 142/72 H 136/70 135/75 Pulse Oximetry 98 99 97 05/15/18 15:30 05/15/18 15:45 05/15/18 16:00 Temperature 98.0 F Pulse Rate 89 84 81 Respiratory Rate 15 16 14 Blood Pressure 133/82 124/58 L 125/61 Pulse Oximetry 96 97 98 05/15/18 16:15 05/15/18 16:30 05/15/18 16:45 Temperature Pulse Rate 83 76 77 Respiratory Rate 16 14 15 Blood Pressure 130/64 128/62 126/64 Pulse Oximetry 97 97 98 05/15/18 17:00 05/15/18 17:15 05/15/18 17:30 Temperature Pulse Rate 78 95 H 95 H Respiratory Rate 14 17 24 Blood Pressure 136/72 136/72 135/69 Pulse Oximetry 97 97 97 05/15/18 17:45 05/15/18 19:49 05/15/18 20:00 Temperature Pulse Rate 82 78 Respiratory Rate 16 Blood Pressure 125/61 Pulse Oximetry 96 97 100 05/15/18 23:15 05/15/18 23:30 05/15/18 23:45 Temperature 98.6 F Pulse Rate 82 78 84 Respiratory Rate 14 22 Blood Pressure 147/76 H 126/63 129/69 Pulse Oximetry 97 96 100 05/16/18 00:00 05/16/18 00:15 12/10/18 00:30 Temperature Pulse Rate 81 84 86 Respiratory Rate 23 22 22 Blood Pressure 127/66 132/68 131/61 Pulse Oximetry 99 98 96 05/16/18 00:45 05/16/18 01:00 05/16/18 01:15 Temperature Pulse Rate 101 H 80 80 Respiratory Rate 22 22 16 Blood Pressure 157/74 H 139/64 148/70 H Pulse Oximetry 99 98 96 05/16/18 01:30 05/16/18 01:45 05/16/18 02:00 Temperature Pulse Rate 82 87 85 Respiratory Rate 23 16 21 Blood Pressure 146/80 H 143/71 H 159/75 H Pulse Oximetry 97 98 100 05/16/18 02:15 05/16/18 02:30 05/16/18 02:45 Temperature Pulse Rate 80 91 H Respiratory Rate 23 20 18 Blood Pressure 140/62 139/63 130/66 Pulse Oximetry 96 97 97 05/16/18 03:00 05/16/18 03:15 05/16/18 03:30 Temperature Pulse Rate 84 89 90 Respiratory Rate 15 16 16 Blood Pressure 128/70 121/67 122/70 Pulse Oximetry 98 96 98 05/16/18 03:45 05/16/18 04:00 05/16/18 04:15 Temperature 98.3 F Pulse Rate 98 H 98 H 89 Respiratory Rate 22 16 15 Blood Pressure 156/86 H 157/66 H 141/65 H Pulse Oximetry 99 97 96 05/16/18 04:30 05/16/18 04:45 05/16/18 05:00 Temperature Pulse Rate 84 90 98 H Respiratory Rate 14 16 Blood Pressure 144/67 H 147/72 H 147/75 H Pulse Oximetry 98 100 100 05/16/18 05:15 05/16/18 08:00 05/16/18 08:31 Temperature Pulse Rate 81 72 Respiratory Rate 24 Blood Pressure 146/79 H Pulse Oximetry 95 95 99 Intake & Output 05/15/18 05/16/18 05/16/18 18:59 06:59 18:59 Intake Total 1770 / 1770 1999 Output Total 650 / 650 1500 / 1500 Balance 1120 / 1120 500 / 500 Weight 78.5 kg Intake: IV 1350 / 1350 1999 Heparin/D5W 25,000 U/250 mL 25, 250 / 250 000 unit In 250 ml @ Per Protocol IV.CONT TITRATE PRN Rx #:[id number] Neosynephrine Inj 160 MG In NS 100 / 100 Inj 484 ML @ 40 MCG/MIN 7.5 mls /hr IV.CONT TITRATE PRN Rx#: [id number] NS Inj 1,000 ML @ 100 mls/hr IV 1000 / 1000 1999 / 1999 .CONT .Q10H DIONISIO Rx#:[id number] Oral 420 / 420 Output: Urine Amount (Catheter) 650 / 650 1500 / 1500 Condom 650 / 650 1500 / 1500 Other: Date of Last Bowel Movement 05/12/18 05/12/18 05/12/18 # Bowel Movements 0 # Incontinent Bowel Movements 1 <Lui sAntonio Ann - 05/16/18 12:10> Narrative: General: Well-developed, alert, and in no acute distress. Appears stated age. HEENT: Atraumatic, moist mucous membranes Neck: Supple, trachea midline Cardiac: Tachycardic with regular rhythm without murmur Pulmonary: Non-labored breathing. Lungs clear to auscultation bilaterally with good air movement Abdomen: Normal bowel sounds, soft and non-tender without rebound or guarding Extremities: No edema, 2+ pedal pulses, capillary refill less than 2 seconds Neurologic: Oriented only to person today. Significant dysarthria. Pronator drift on the right side, mild interval improvement. 5 out of 5 strength in the left upper and lower extremities. 4 out of 5 strength in the right upper and lower extremities. Facial muscle asymmetry noted with smiling. His confusion does wax and wane. <Luis Antonio Ann - 05/16/18 12:10> - Urinary Catheter Management Condom Cath placed during this visit: no <Facundo Thomas - 05/18/18 13:38> no <Luis Antonio Ann - 05/16/18 15:57> Reason for continuing: Hourly intake/output <Luis Antonio Ann - 05/16/18 12:10> Assessment and Plan - Assessment (1) Acute CVA (cerebrovascular accident) Code(s): I63.9 - Cerebral infarction, unspecified Status: Acute (2) Confusion Code(s): R41.0 - Disorientation, unspecified Status: Acute (3) Hypertension Code(s): I10 - Essential (primary) hypertension Status: Acute (4) Internal carotid artery stenosis Code(s): I65.29 - Occlusion and stenosis of unspecified carotid artery Status : Acute (5) Dysarthria Code(s): R47.1 - Dysarthria and anarthria Status: Acute (6) Heme positive stool Code(s): R19.5 - Other fecal abnormalities Status: Acute <Facundo Thomas - 05/18/18 13:38> (1) Acute CVA (cerebrovascular accident) Code(s): I63.9 - Cerebral infarction, unspecified Status: Acute (2) Confusion Code(s): R41.0 - Disorientation, unspecified Status: Acute (3) Hypertension Code(s): I10 - Essential (primary) hypertension Status: Acute (4) Internal carotid artery stenosis Code(s): I65.29 - Occlusion and stenosis of unspecified carotid artery Status : Acute (5) Dysarthria Code(s): R47.1 - Dysarthria and anarthria Status: Acute (6) Heme positive stool Code(s): R19.5 - Other fecal abnormalities Status: Acute <Luis Antonio Ann - 05/16/18 15:56> - Assessment and Plan Patient is an 83-year-old male who presented with acute stroke and had a repeat stroke while hospitalized. He is 3 weeks s/p CVA and right-sided endarterectomy. He has a chronically occluded left carotid. Symptoms at this time include 4 out of 5 strength on the right, right facial droop, significant dysarthria, and significant receptive and expressive aphasia. He also has significant confusion and it is unclear how much of this is secondary to the stroke. Acute stroke: -Neurology is following Maintain systolic blood pressure greater than 120 -Currently on Midodrine 10 mg 3 times daily to increase BP -Phenylephrine drip was discontinued yesterday -Neurology request loop recorder placement by cardiology -Continuous telemetry -Neurochecks every 4 hours -Continue Lipitor 80 mg p.o. at bedtime -Physical therapy recommends PT at rehab -Speech therapy: Will need continued therapy Anticoagulation -Hold daily aspirin 81 mg -Hold daily Plavix Currently on heparin drip, transitioning to warfarin Chronic hypertension: -Hold home antihypertensives due to pressure that is borderline for current post stroke goals Vasotec for SBP greater than 180 or DBP greater than 110 Confusion: This may be entirely from his CVA, however other causes may contribute especially considering the time course of his symptoms. He does also have some chronic dementia symptoms. Urinalysis to assess for UTI was negative -Family was educated regarding wearing his hearing aids and reorienting him often Heme Positive stool: Reported black stools with heme positive. GI consulted. Status post 1 unit PRBC. Hemoglobin has been stable. GI recommendations * EGD noted class B esophagitis and erosive duodenitis that could be contributing to his hemoglobin drop * Colonoscopy, however not for a couple weeks Fluids: Normal saline at 100 cc/h, will consider discontinuing once his p.o. intake is increased Electrolytes: monitor and replete as needed Nutrition: Mechanical soft diet with chopped meat with gravy and thin liquids GI prophylaxis: Not indicated VTE prophylaxis: Currently on heparin drip CODE STATUS: He is a DO NOT RESUSCITATE CODE STATUS after discussion with the family. Goals of care remain otherwise aggressive Disposition: Will need extensive rehab after discharge. Not currently stable for discharge. <Luis Antonio Ann - 05/16/18 15:57> - Attending Attestation See the residents documentation for details. I saw and evaluated the patient regarding the jenkins portions of this evaluation and agree with the residents findings and plans as written. Parts of this note were created using [employer] voice recognition software program. While efforts were made to correct any mistakes made by this software, some mistakes, errors, and omissions may remain in the final note that were not caught when the note was originally created. Plan of care was discussed and agreed upon with the patient as specifically documented in the above note. An opportunity to ask questions with explanation was provided. Patient voiced understanding on all information reviewed and discussed. <Facundo Thomas - 05/18/18 13:38>
[2018-05-16] MEDS ORDERED: Warfarin Consult Pharmacy OTHER PRN (13:38)
[2018-05-16 15:22] LABS: INR 1.1 Ratio; Prothrombin Time 11.4 sec (9.8-11.6)
--- NOTE | 2018-05-16 17:01 | P.PNGI ---
Subjective Interval history: Patient laying supine in bed Spouse and granddaughter at bedside No active bleeding Physical Exam Vital signs: Vital Signs 05/15/18 17:00 05/15/18 17:15 05/15/18 17:30 Temperature Pulse Rate 78 95 H 95 H Respiratory Rate 14 17 24 Blood Pressure 136/72 136/72 135/69 Pulse Oximetry 97 97 97 05/15/18 17:45 05/15/18 19:49 05/15/18 20:00 Temperature Pulse Rate 82 78 Respiratory Rate 16 Blood Pressure 125/61 Pulse Oximetry 96 97 100 05/15/18 23:15 05/15/18 23:30 05/15/18 23:45 Temperature 98.6 F Pulse Rate 82 78 84 Respiratory Rate 14 22 Blood Pressure 147/76 H 126/63 129/69 Pulse Oximetry 97 96 100 05/16/18 00:00 05/16/18 00:15 05/16/18 00:30 Temperature Pulse Rate 81 84 86 Respiratory Rate 23 22 22 Blood Pressure 127/66 132/68 131/61 Pulse Oximetry 99 98 96 05/16/18 00:45 05/16/18 01:00 05/16/18 01:15 Temperature Pulse Rate 101 H 80 80 Respiratory Rate 22 22 16 Blood Pressure 157/74 H 139/64 148/70 H Pulse Oximetry 99 98 96 05/16/18 01:30 05/16/18 01:45 05/16/18 02:00 Temperature Pulse Rate 82 87 85 Respiratory Rate 23 16 21 Blood Pressure 146/80 H 143/71 H 159/75 H Pulse Oximetry 97 98 100 05/16/18 02:15 05/16/18 02:30 05/16/18 02:45 Temperature Pulse Rate 80 91 H Respiratory Rate 23 20 18 Blood Pressure 140/62 139/63 130/66 Pulse Oximetry 96 97 97 05/16/18 03:00 05/16/18 03:15 05/16/18 03:30 Temperature Pulse Rate 84 89 90 Respiratory Rate 15 16 16 Blood Pressure 128/70 121/67 122/70 Pulse Oximetry 98 96 98 05/16/18 03:45 05/16/18 04:00 05/16/18 04:15 Temperature 98.3 F Pulse Rate 98 H 98 H 89 Respiratory Rate 22 16 15 Blood Pressure 156/86 H 157/66 H 141/65 H Pulse Oximetry 99 97 96 05/16/18 04:30 05/16/18 04:45 05/16/18 05:00 Temperature Pulse Rate 84 90 98 H Respiratory Rate 14 16 Blood Pressure 144/67 H 147/72 H 147/75 H Pulse Oximetry 98 100 100 05/16/18 05:15 05/16/18 06:45 05/16/18 07:00 Temperature Pulse Rate 81 100 H 95 H Respiratory Rate 24 25 H 21 Blood Pressure 146/79 H 168/74 H 143/72 H Pulse Oximetry 95 97 96 05/16/18 07:15 05/16/18 07:30 05/16/18 07:45 Temperature Pulse Rate 91 H 86 84 Respiratory Rate 17 21 22 Blood Pressure 138/64 141/67 H 141/64 H Pulse Oximetry 95 96 97 05/16/18 08:00 05/16/18 08:15 05/16/18 08:30 Temperature Pulse Rate 95 H 88 91 H Respiratory Rate 18 26 H 16 Blood Pressure 138/66 129/61 144/72 H Pulse Oximetry 97 97 98 05/16/18 08:31 05/16/18 08:45 05/16/18 09:00 Temperature Pulse Rate 88 86 Respiratory Rate 16 18 Blood Pressure 132/63 128/63 Pulse Oximetry 99 97 97 05/16/18 09:15 05/16/18 09:30 05/16/18 09:45 Temperature Pulse Rate 83 82 82 Respiratory Rate 27 H 25 H 26 H Blood Pressure 131/72 146/76 H 138/67 Pulse Oximetry 97 98 97 05/16/18 10:00 05/16/18 10:15 05/16/18 10:30 Temperature Pulse Rate 82 88 90 Respiratory Rate 27 H 16 17 Blood Pressure 140/70 151/78 H 151/81 H Pulse Oximetry 99 98 97 05/16/18 10:45 05/16/18 11:00 05/16/18 11:15 Temperature Pulse Rate 105 H 99 H 93 H Respiratory Rate 28 H 31 H 22 Blood Pressure 164/78 H 147/59 H 141/65 H Pulse Oximetry 98 96 97 05/16/18 11:30 05/16/18 11:45 05/16/18 12:00 Temperature 99.7 F H Pulse Rate 88 87 101 H Respiratory Rate 24 17 24 Blood Pressure 128/62 121/64 116/66 Pulse Oximetry 98 97 97 05/16/18 12:15 05/16/18 12:18 05/16/18 12:30 Temperature Pulse Rate 98 H 97 H 92 H Respiratory Rate 20 17 17 Blood Pressure 115/68 135/63 120/63 Pulse Oximetry 97 97 98 Intake & Output 05/15/18 05/16/18 05/16/18 18:59 06:59 18:59 Intake Total 1770 / 1770 1999 / 1999 1100 / 1100 Output Total 650 / 650 1500 / 1500 Balance 1120 / 1120 500 / 500 1100 / 1100 Weight 78.5 kg Intake: IV 1350 / 1350 1999 / 2000 1100 / 1100 Heparin/D5W 25,000 U/250 mL 25, 250 / 250 000 unit In 250 ml @ Per Protocol IV.CONT TITRATE PRN Rx #:[id number] Neosynephrine Inj 160 MG In NS 100 / 100 Inj 484 ML @ 40 MCG/MIN 7.5 mls /hr IV.CONT TITRATE PRN Rx#: [id number] NS Inj 1,000 ML @ 100 mls/hr IV 1000 / 1000 2000 / 2000 1000 / 1000 .CONT .Q10H DIONISIO Rx#:[id number] KCl 40 mEq Premix Inj 40 meq In 100 / 100 100 ml @ 25 mls/hr IV.SIG UNSCH PRN Rx#:[id number] Oral 420 / 420 Output: Urine Amount (Catheter) 650 / 650 1500 / 1500 Condom 650 / 650 1500 / 1500 Other: Date of Last Bowel Movement 05/12/18 05/12/18 05/12/18 # Bowel Movements 0 # Incontinent Bowel Movements 1 - Constitutional no acute distress, chronically ill appearing - Routine HEENT Exam Head: Present: normocephalic - Routine Respiratory Exam Present: CTA bilaterally. Absent: respiratory distress - Routine Cardiovascular Exam Present: RRR - Routine Abdominal Exam Present: soft, normoactive bowel sounds. Absent: tenderness, distended, guarding, firm - Routine Skin Exam Present: dry, warm - Routine Neurological Exam Present: alert, facial asymmetry Expressive aphasia - Routine Psychiatric Exam Present: cooperative - Urinary Catheter Management Condom Cath placed during this visit: no Reason for continuing: Hourly intake/output Results - Labs CBC & Chem 7: 05/16/18 04:00 05/16/18 14:18 Laboratory Results - last 24 hr 05/15/18 05/16/18 05/16/18 16:15 04:00 04:00 WBC 10.2 RBC 3.09 L Hgb 9.5 L Hct 27.0 L MCV 87.5 MCH 30.7 MCHC 35.1 RDW 14.9 Plt Count 212 MPV 6.9 L Neut % (Auto) 78.1 H Lymph % (Auto) 12.6 [place] % (Auto) 6.1 Eos % (Auto) 2.6 Baso % (Auto) 0.6 Neut # (Auto) 8.0 H Lymph # (Auto) 1.3 [place]pson # (Auto) 0.6 Eos # (Auto) 0.3 Baso # (Auto) 0.1 WBC Differential . Differential Comment Auto diff final PT INR APTT 62.5 H 65.9 H Sodium Potassium Chloride Carbon Dioxide Anion Gap BUN Creatinine Estimated GFR Random Glucose Calcium 05/16/18 05/16/18 05/16/18 04:00 14:18 14:18 WBC RBC Hgb Hct MCV MCH MCHC RDW Plt Count MPV Neut % (Auto) Lymph % (Auto) Upson % (Auto) Eos % (Auto) Baso % (Auto) Neut # (Auto) Lymph # (Auto) Upson # (Auto) Eos # (Auto) Baso # (Auto) WBC Differential Differential Comment PT 11.4 INR 1.1 APTT Sodium 137 Potassium 3.3 L 3.5 Chloride 104 Carbon Dioxide 23.3 Anion Gap 10 BUN 11 Creatinine 0.73 Estimated GFR Greater than 89 Random Glucose 81 Calcium 8.2 L Assessment and Plan (1) Heme positive stool Status: Acute Code(s): R19.5 - Other fecal abnormalities - Plan Patient is an 83-year-old male who presented to the emergency department at [facility] as a stroke alert. Patient medical history significant for acute CVA, hypertension, or carotid artery stenosis, dysarthria and BPH. Patient suffered a stroke 3 weeks ago. Currently patient has right-sided weakness and aphasia. Patient currently on heparin drip and was on Plavix prior to admission. Last dose of Plavix noted 05/11/2018. Our service has been consulted to evaluate patient for heme positive stools. Upon consultation, patient spouse endorses that patient has had dark stools for the last 3-4 days while in the rehab center. She reports that he has had no complaints of nausea or vomiting but did endorse some lower abdominal discomfort. His spouse denies any known change in bowel habits. She denies knowledge of patient ever having had an EGD or colonoscopy in the past. Past medical history is significant for tonsillectomy as a child and right knee repair as an adult. She denies any known family history for gastrointestinal issues and states that patient does not smoke or use alcohol products Heme positive stools Spouse endorses onset of dark stools 3-4 days prior to admission. Patient post acute CVA currently on heparin infusion. Patient was on Plavix 75 mg p.o. daily. Last noted dose 05/11/2018. (05/11) hemoglobin 10.1 hematocrit 28.8 ,05/13/2018 hemoglobin 8.0 hematocrit 22.9 platelet count 247 INR 1.1. * BP presently 96/51 [place]-Synephrine infusing. 05/14/2018 patient is awake but randomly moves around in the bed answered a couple of simple questions but otherwise still appears to have some altered mental status. Questionable tolerance to nuclear medicine scan or bleeding scan. Off Plavix for now melena stools noted approximately 2 days ago but last stool noted brown soft semi-loose no obvious bleeding. Colonoscopy according to family was approximately [address] Walden, has not seen patient since. N.p.o. this a.m. and heparin drip has been held but cannot do colonoscopy today without prep. Family seems to want aggressive GI care if it will allow patient to have some quality of life. Will consider colonoscopy probable Wednesday as long as okay with neurology and BP remains systolic greater than 140. Status post EGD on 05/13/2018 there was LA Class B esophagitis noted. 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 The stricture was traversable. STOMACH: The mucosa of the stomach appeared normal. Erosive duodenitis. Could be contributing to drop in hemoglobin. No further melena stools noted DUODENUM: Moderate duodenal inflammation was found in the duodenal bulb. Hiatal hernia, Hemoglobin appears to be fairly stable at 7.9 for now 05/15/2018 patient appears to be stronger today and more alert denies any nausea vomiting or abdominal pain. Neuro and Dr. Sun discussed timing of colonoscopy. Recommendation was in the next few weeks unless patient has active bleeding. Patient is currently n.p.o. and needs speech evaluation for swallow , hemoglobin now 9.3, stable no obvious rectal bleeding we will continue to monitor 05/16/2018 Patient awake and alert, spouse and granddaughter at bedside. Noted recommendation for colonoscopy in a few weeks. No active or reported bleeding noted. Patient post speech evaluation. Hemoglobin 9.5 hematocrit 27.0 stable. GI will continue to monitor patient closely. Plan -Regular diet as per speech therapy recommendation -Monitor for bleeding-notify GI for any active bleeding -Transfuse if needed -Plan is for colonoscopy when patient stable in a few weeks -Monitor hemoglobin and hematocrit -Continue PPI -Continue bowel regimen -Supportive care -Further recommendations to follow This patient has been seen by myself and Dr. Ramires and this note is written on his behalf - Attending Attestation Keyla
--- NOTE | 2018-05-16 17:05 | P.PNPAL ---
Reason for Visit Reason for visit: a. To assist with evaluation and management of symptoms including: pain, debility, confusion b. To assist medical decision maker(s) with: better understanding of current medical conditions; weighing benefits/burdens of medical treatment options; making medical treatment decisions. Subjective Subjective/Interval History: Mr. Barber is an 83-year-old male who presented to [place] ED on 05/11/2018 via EMS as a stroke alert. Approximately 3 weeks earlier the patient suffered a stroke which left him with residual right-sided weakness, mild dysarthria, intermittent confusion. He was transferred to [facility] at discharge. Patient's functional status was slowly improving until the morning of 05/11/2018 when he developed additional and worsening symptoms. 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 The entire region of involvement is approximately 2.2 x 8.4 cm in greatest transaxial dimension. Follow-up visit for symptom management of pain and debility as well as clarification of medical treatment goals. Dual visit with Andi RamirezW. Patient seen and assessed in [facility] , room 1331. Patient's was at bedside. Patient presents sitting upright in stretcher chair. Patient is more alert today than on previous exam, but he remains somewhat confused. Ongoing right-sided facial droop, dysarthria and receptive/expressive aphasia. Phenylephrine drip was discontinued; blood pressure stable on Midodrine 10mg TID Patient had an EGD on 05/13/2018 which showed LA class B esophagitis. 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 The mucosa of the stomach appeared normal. Erosive duodenitis. Duodenal inflammation was found in the duodenal bulb. Retroflexed views revealed a hiatal hernia. Plan for colonoscopy in the next few weeks unless the patient has active bleeding. Speech therapy continues to follow this patient with dysphasia. Patient has been NPO for 2 days for possible procedure. Swallow function was reevaluated today with recommendations for mechanically soft diet and nectar consistency thickened liquids. Per , patient was allowed to eat lunch today with 30% intake. Clinical data: * WBC: 10.2, hemoglobin 9.5, hematocrit 27.0, platelets 212, neutrophils 78.1% * PT: 11.4, INR 1.1 * Sodium: 137, potassium 3.3, chloride 104, carbon dioxide 23.3, glucose 81, calcium 8.2 * BUN: 11, creatinine 0.73, GFR >89 Goals remain aggressive up to the point of cardiopulmonary resuscitation. Family/Friend Interactions: See interval history Advance Directives Documented care wishes:: Family believes the patient completed written advanced directive and will bring a copy of the documents when they are found. Objective Vital Signs: Vital Signs 05/15/18 16:45 05/15/18 17:00 05/15/18 17:15 Temperature Pulse Rate 77 78 95 H Respiratory Rate 15 14 17 Blood Pressure 126/64 136/72 136/72 Pulse Oximetry 98 97 97 05/15/18 17:30 05/15/18 17:45 05/15/18 19:49 Temperature Pulse Rate 95 H 82 Respiratory Rate 24 16 Blood Pressure 135/69 125/61 Pulse Oximetry 97 96 97 05/15/18 20:00 05/15/18 23:15 05/15/18 23:30 Temperature Pulse Rate 78 82 78 Respiratory Rate 14 Blood Pressure 147/76 H 126/63 Pulse Oximetry 100 97 96 05/15/18 23:45 05/16/18 00:00 05/16/18 00:15 Temperature 98.6 F Pulse Rate 84 81 84 Respiratory Rate 22 23 22 Blood Pressure 129/69 127/66 132/68 Pulse Oximetry 100 99 98 05/16/18 00:30 05/16/18 00:45 05/16/18 01:00 Temperature Pulse Rate 86 101 H 80 Respiratory Rate 22 22 22 Blood Pressure 131/61 157/74 H 139/64 Pulse Oximetry 96 99 98 05/16/18 01:15 05/16/18 01:30 05/16/18 01:45 Temperature Pulse Rate 80 82 87 Respiratory Rate 16 23 16 Blood Pressure 148/70 H 146/80 H 143/71 H Pulse Oximetry 96 97 98 05/16/18 02:00 05/16/18 02:15 05/16/18 02:30 Temperature Pulse Rate 85 80 Respiratory Rate 21 23 20 Blood Pressure 159/75 H 140/62 139/63 Pulse Oximetry 100 96 97 05/16/18 02:45 05/16/18 03:00 05/16/18 03:15 Temperature Pulse Rate 91 H 84 89 Respiratory Rate 18 15 16 Blood Pressure 130/66 128/70 121/67 Pulse Oximetry 97 98 96 05/16/18 03:30 05/16/18 03:45 05/16/18 04:00 Temperature Pulse Rate 90 98 H 98 H Respiratory Rate 16 22 16 Blood Pressure 122/70 156/86 H 157/66 H Pulse Oximetry 98 99 97 05/16/18 04:15 05/16/18 04:30 05/16/18 04:45 Temperature 98.3 F Pulse Rate 89 84 90 Respiratory Rate 15 14 16 Blood Pressure 141/65 H 144/67 H 147/72 H Pulse Oximetry 96 98 100 05/16/18 05:00 05/16/18 05:15 05/16/18 06:45 Temperature Pulse Rate 98 H 81 100 H Respiratory Rate 24 25 H Blood Pressure 147/75 H 146/79 H 168/74 H Pulse Oximetry 100 95 97 05/16/18 07:00 05/16/18 07:15 05/16/18 07:30 Temperature Pulse Rate 95 H 91 H 86 Respiratory Rate 21 17 21 Blood Pressure 143/72 H 138/64 141/67 H Pulse Oximetry 96 95 96 05/16/18 07:45 05/16/18 08:00 05/16/18 08:15 Temperature Pulse Rate 84 95 H 88 Respiratory Rate 22 18 26 H Blood Pressure 141/64 H 138/66 129/61 Pulse Oximetry 97 97 97 05/16/18 08:30 05/16/18 08:31 05/16/18 08:45 Temperature Pulse Rate 91 H 88 Respiratory Rate 16 16 Blood Pressure 144/72 H 132/63 Pulse Oximetry 98 99 97 05/16/18 09:00 05/16/18 09:15 05/16/18 09:30 Temperature Pulse Rate 86 83 82 Respiratory Rate 18 27 H 25 H Blood Pressure 128/63 131/72 146/76 H Pulse Oximetry 97 97 98 05/16/18 09:45 05/16/18 10:00 05/16/18 10:15 Temperature Pulse Rate 82 82 88 Respiratory Rate 26 H 27 H 16 Blood Pressure 138/67 140/70 151/78 H Pulse Oximetry 97 99 98 05/16/18 10:30 05/16/18 10:45 05/16/18 11:00 Temperature Pulse Rate 90 105 H 99 H Respiratory Rate 17 28 H 31 H Blood Pressure 151/81 H 164/78 H 147/59 H Pulse Oximetry 97 98 96 05/16/18 11:15 05/16/18 11:30 05/16/18 11:45 Temperature Pulse Rate 93 H 88 87 Respiratory Rate 22 24 17 Blood Pressure 141/65 H 128/62 121/64 Pulse Oximetry 97 98 97 05/16/18 12:00 05/16/18 12:15 05/16/18 12:18 Temperature 99.7 F H Pulse Rate 101 H 98 H 97 H Respiratory Rate 24 20 17 Blood Pressure 116/66 115/68 135/63 Pulse Oximetry 97 97 97 05/16/18 12:30 Temperature Pulse Rate 92 H Respiratory Rate 17 Blood Pressure 120/63 Pulse Oximetry 98 Intake & Output 05/15/18 05/16/18 05/16/18 18:59 06:59 18:59 Intake Total 1770 / 1770 1999 / 1999 100 / 100 Output Total 650 / 650 1500 / 1500 Balance 1120 / 1120 500 / 500 100 / 100 Weight 78.5 kg Intake: IV 1350 / 1350 1999 / 1999 100 / 100 Heparin/D5W 25,000 U/250 mL 25, 250 / 250 000 unit In 250 ml @ Per Protocol IV.CONT TITRATE PRN Rx #:[id number] Neosynephrine Inj 160 MG In NS 100 / 100 Inj 484 ML @ 40 MCG/MIN 7.5 mls /hr IV.CONT TITRATE PRN Rx#: [id number] NS Inj 1,000 ML @ 100 mls/hr IV 1000 / 1000 1999 / 1999 .CONT .Q10H DIONISIO Rx#:[id number] KCl 40 mEq Premix Inj 40 meq In 100 / 100 100 ml @ 25 mls/hr IV.SIG UNSCH PRN Rx#:[id number] Oral 420 / 420 Output: Urine Amount (Catheter) 650 / 650 1500 / 1500 Condom 650 / 650 1500 / 1500 Other: Date of Last Bowel Movement 05/12/18 05/12/18 05/12/18 # Bowel Movements 0 # Incontinent Bowel Movements 1 Physical Exam: CONSTITUTIONAL/GENERAL: This is an adequately nourished patient, in no apparent distress. TUBES/LINES/DRAINS: PIV SKIN: No jaundice, rashes, or lesions. Ecchymoses on upper extremities. No wounds seen anteriorly. Skin temperature appropriate. Not diaphoretic. HEAD: Atraumatic. Normocephalic. EYES: Pupils equal and round and reactive. Extraocular motions intact. No scleral icterus. No injection or drainage. Fundi not examined. ENT: Hearing grossly normal. Nose without bleeding or purulent drainage. Throat without visible erythema, exudates, masses, or lesions. NECK: Trachea midline. Supple, nontender. No palpable thyroid enlargement or nodularity. CARDIOVASCULAR: Regular rate and rhythm without murmurs, gallops, or rubs. No JVD. Peripheral pulses symmetric. RESPIRATORY/CHEST: Symmetric, unlabored respirations. Clear to auscultation. Breath sounds diminished bilaterally. No wheezes, rales, or rhonchi. GASTROINTESTINAL: Abdomen soft, nontender. No hepato-splenomegaly, or palpable masses. No guarding. Bowel sounds present. GENITOURINARY: Without palpable bladder distension. . MUSCULOSKELETAL: Extremities without clubbing, cyanosis, or edema. No calf tenderness. No mottling or clubbing. LYMPHATICS: No palpable cervical or supraclavicular adenopathy. NEUROLOGICAL: Aphasic. Dysarthria. Follows some simple one-step commands. PSYCHIATRIC: No obvious anxiety/depression. No apparent hallucinations or other psychotic thought process. Diagnostic Tests Laboratory: Laboratory Results - last 72 hr 05/13/18 05/13/18 05/13/18 20:05 20:05 23:25 WBC RBC Hgb 7.8 L Hct 22.5 L MCV MCH MCHC RDW Plt Count MPV Prelim Diff (Auto) Neut % (Auto) Lymph % (Auto) Burnet % (Auto) Eos % (Auto) Baso % (Auto) Neut # (Auto) Lymph # (Auto) [place]et # (Auto) Eos # (Auto) Baso # (Auto) WBC Differential Diff Scan Differential Comment Platelet Estimate Platelet Morphology RBC Morphology PT INR APTT 29.8 Sodium Potassium Chloride Carbon Dioxide Anion Gap BUN Creatinine Estimated GFR POC Glucose 112 H Random Glucose Calcium Phosphorus Magnesium Total Bilirubin AST ALT Alkaline Phosphatase Total Protein Albumin Blood Type Antibody Screen MTS Gel Crossmatch 05/14/18 05/14/18 05/14/18 03:40 03:40 03:40 WBC 10.8 RBC 2.54 L Hgb 7.9 L Hct 22.0 L MCV 86.6 MCH 31.0 MCHC 35.8 RDW 14.3 Plt Count 222 MPV 6.8 L Prelim Diff (Auto) Slide review pending Neut % (Auto) 72.7 H Lymph % (Auto) 16.0 Burnet % (Auto) 8.1 H Eos % (Auto) 2.7 Baso % (Auto) 0.5 Neut # (Auto) 7.9 H Lymph # (Auto) 1.7 Burnet # (Auto) 0.9 Eos # (Auto) 0.3 Baso # (Auto) 0.1 WBC Differential . Diff Scan Auto diff confirmed Differential Comment . Platelet Estimate Normal Platelet Morphology Normal RBC Morphology Normal PT INR APTT 81.2 H D Sodium 136 Potassium 3.6 Chloride 104 Carbon Dioxide 25.1 Anion Gap 7 BUN 7 Creatinine 0.68 Estimated GFR Greater than 89 POC Glucose Random Glucose 100 Calcium 8.2 L Phosphorus 2.9 Magnesium 2.1 Total Bilirubin 0.5 AST 16 ALT 22 Alkaline Phosphatase 54 Total Protein 5.8 L Albumin 3.0 L Blood Type Antibody Screen MTS Gel Crossmatch 05/14/18 05/14/18 05/14/18 05:00 10:28 16:00 WBC RBC Hgb Hct MCV MCH MCHC RDW Plt Count MPV Prelim Diff (Auto) Neut % (Auto) Lymph % (Auto) Burnet % (Auto) Eos % (Auto) Baso % (Auto) Neut # (Auto) Lymph # (Auto) Burnet # (Auto) Eos # (Auto) Baso # (Auto) WBC Differential Diff Scan Differential Comment Platelet Estimate Platelet Morphology RBC Morphology PT INR APTT 53.4 H D 33.8 H D Sodium Potassium Chloride Carbon Dioxide Anion Gap BUN Creatinine Estimated GFR POC Glucose Random Glucose Calcium Phosphorus Magnesium Total Bilirubin AST ALT Alkaline Phosphatase Total Protein Albumin Blood Type O Negative Antibody Screen Negative MTS Gel Crossmatch See Detail 05/14/18 05/14/18 05/15/18 16:00 22:30 04:26 WBC 10.2 RBC 3.16 L Hgb 9.3 L Hct 27.4 L MCV 86.6 MCH 29.5 MCHC 34.1 RDW 14.9 Plt Count 222 MPV 6.9 L Prelim Diff (Auto) Neut % (Auto) 77.3 H Lymph % (Auto) 12.2 Burnet % (Auto) 7.4 Eos % (Auto) 2.6 Baso % (Auto) 0.5 Neut # (Auto) 7.9 H Lymph # (Auto) 1.2 Burnet # (Auto) 0.8 Eos # (Auto) 0.3 Baso # (Auto) 0.0 WBC Differential . Diff Scan Differential Comment Auto diff final Platelet Estimate Platelet Morphology RBC Morphology PT INR APTT 55.6 H D 66.4 H Sodium Potassium Chloride Carbon Dioxide Anion Gap BUN Creatinine Estimated GFR POC Glucose Random Glucose Calcium Phosphorus Magnesium Total Bilirubin AST ALT Alkaline Phosphatase Total Protein Albumin Blood Type Antibody Screen MTS Gel Crossmatch 05/15/18 05/15/18 05/15/18 04:26 04:26 09:00 WBC RBC Hgb Hct MCV MCH MCHC RDW Plt Count MPV Prelim Diff (Auto) Neut % (Auto) Lymph % (Auto) Burnet % (Auto) Eos % (Auto) Baso % (Auto) Neut # (Auto) Lymph # (Auto) Burnet # (Auto) Eos # (Auto) Baso # (Auto) WBC Differential Diff Scan Differential Comment Platelet Estimate Platelet Morphology RBC Morphology PT INR APTT 77.3 H 64.4 H Sodium 138 Potassium 3.5 Chloride 104 Carbon Dioxide 26.6 Anion Gap 7 BUN 7 Creatinine 0.64 Estimated GFR Greater than 89 POC Glucose Random Glucose 98 Calcium 7.7 L Phosphorus Magnesium Total Bilirubin AST ALT Alkaline Phosphatase Total Protein Albumin Blood Type Antibody Screen MTS Gel Crossmatch 05/15/18 05/16/18 05/16/18 16:15 04:00 04:00 WBC 10.2 RBC 3.09 L Hgb 9.5 L Hct 27.0 L MCV 87.5 MCH 30.7 MCHC 35.1 RDW 14.9 Plt Count 212 MPV 6.9 L Prelim Diff (Auto) Neut % (Auto) 78.1 H Lymph % (Auto) 12.6 Burnet % (Auto) 6.1 Eos % (Auto) 2.6 Baso % (Auto) 0.6 Neut # (Auto) 8.0 H Lymph # (Auto) 1.3 Burnet # (Auto) 0.6 Eos # (Auto) 0.3 Baso # (Auto) 0.1 WBC Differential . Diff Scan Differential Comment Auto diff final Platelet Estimate Platelet Morphology RBC Morphology PT INR APTT 62.5 H 65.9 H Sodium Potassium Chloride Carbon Dioxide Anion Gap BUN Creatinine Estimated GFR POC Glucose Random Glucose Calcium Phosphorus Magnesium Total Bilirubin AST ALT Alkaline Phosphatase Total Protein Albumin Blood Type Antibody Screen MTS Gel Crossmatch 05/16/18 05/16/18 05/16/18 04:00 14:18 14:18 WBC RBC Hgb Hct MCV MCH MCHC RDW Plt Count MPV Prelim Diff (Auto) Neut % (Auto) Lymph % (Auto) Burnet % (Auto) Eos % (Auto) Baso % (Auto) Neut # (Auto) Lymph # (Auto) [place]et # (Auto) Eos # (Auto) Baso # (Auto) WBC Differential Diff Scan Differential Comment Platelet Estimate Platelet Morphology RBC Morphology PT 11.4 INR 1.1 APTT Sodium 137 Potassium 3.3 L 3.5 Chloride 104 Carbon Dioxide 23.3 Anion Gap 10 BUN 11 Creatinine 0.73 Estimated GFR Greater than 89 POC Glucose Random Glucose 81 Calcium 8.2 L Phosphorus Magnesium Total Bilirubin AST ALT Alkaline Phosphatase Total Protein Albumin Blood Type Antibody Screen MTS Gel Crossmatch Result Diagrams: 05/16/18 04:00 05/16/18 14:18 Microbiology: Microbiology 05/12/18 13:05 Stool Stool Occult Blood ([facility]) - Final Hemoccult positive Imaging: Head CTA 05/11/18 15:17 CONCLUSION: 1. Left internal carotid occlusion, similar to what was seen on 04/17/2018. . Neck CTA 05/11/18 15:17 CONCLUSION: Chronic occlusion of the left internal carotid artery. Previous right endarterectomy without evidence of recurrent stenosis. 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 Head CT 05/12/18 00:16 CONCLUSION: 1. Chronic small vessel ischemic change. No acute intracranial abnormality. Report was called by [Dr. Solorzano to Dr. Serrato and to Dr. Tilley at 0033 hours. There is a delay in interpretation of this study due to an issue with the [employer] system. ] Chest X-Ray 05/12/18 02:51 CONCLUSION: Central line without pneumothorax. Abdomen/Pelvis CT 05/14/18 00:00 CONCLUSION: 1. No acute abnormality is identified to explain the clinical symptoms. Examination quality is mildly degraded by respiratory motion artifact. 2. 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 Procedures: 05/12/2018: Left IJ central line placement Assessment and Plan - Disease Oriented Problem List (1) Hypertension (2) Internal carotid artery stenosis (3) Acute CVA (cerebrovascular accident) (4) BPH (benign prostatic hyperplasia) Pertinent Non-Medical Issues: Psychosocial: Patient is originally from [place]. He served in the [employer] during the [place] [employer]. He has been to his (Haydee) for approximately 61 years. 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 After retiring, they moved to [place] and the patient worked part-time with his son at [employer]. Together they have 2 sons (Noah and Néstor) who both live locally. Patient and his were living their with son, Roland , until the patient's initial stroke in April, Spiritual: Religious Legal: Family believes the patient may have completed written advanced directives and will bring copies of these documents if they are found. Per [place] statutes, in the absence of written advanced directives healthcare proxy decision making falls to the patient's . Family is making decisions together at this time. Ethical issues impacting care: No known ethical issues impacting care at this time. Important Contacts: Haydee Barber, : [phone] Noah Barber, son: [phone] Néstor Barber, son: [phone] Prognosis: Patient is an 83-year-old male status post CVA x2. Patient's initial stroke was approximately 3 weeks ago in April, with subsequent right-sided deficits , dysarthria and intermittent confusion. He was discharged to a SNF for rehab but returned to the ED on 05/11/2018 with new symptoms. Patient is at risk for further decline secondary his advanced age and recurrent CVAs with residual deficits. Code Status: No Code DNR Plan: * NO CODE/DNR * Decision-making: Family believes the patient may have completed written advanced directives and will bring copies of these documents if they are found. Per [place] statutes, in the absence of written advanced directives healthcare proxy decision making falls to the patient's . Family is making decisions together at this time. * Spoke with patient's at bedside, medical update provided. Answers questions to the best my ability. * Patient's and 2 sons state the patient would not want cardiopulmonary resuscitation in the event that his condition deteriorated. Patient agrees with his family stating he would not want CPR. However, his insight/judgement related to his medical conditions is limited; I would not recommend allowing the patient to make medical decisions on his own at this time. CODE STATUS changed to NO CODE/DNR. Goals aggressive up to the point of cardiopulmonary resuscitation * Symptom management-pain: Patient showing no signs or symptoms of pain on exam. 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 Continue to monitor. * Symptom management-debility: Patient was independent, healthy and active prior to his initial stroke in April,. He was discharged to an SNF with residual right-sided weakness, dysarthria and intermittent confusion. Functional status was slowly improving with rehab until 05/11/2018 when the patient developed new/additional deficits. Physical therapy following, recommending rehab at discharge. * Symptom management-confusion: Patient has some confusion at baseline so it is unclear how much of this is related to his CVA. Additional factors could include ICU stay/delirium, electrolyte imbalances, medications, underlying dementia, constipation, urinary retention, infection, hearing deficit, receptive/expressive aphasia. Non-pharmaceutical therapy can include reducing stimuli, reorientation, maintaining adequate nutrition/hydration etc. * Palliative care will continue to follow this patient throughout his hospitalization to build rapport, assist with symptom managment and goal clarification. Attestation Attestation: To help prompt me to consider important information that might be impacting today's encounter and assessment, information from prior notes written by myself or my colleagues may have been "brought forward" into today's note. My signature on this note, however, is an attestation that I personally performed the exam, history, and/or decision-making noted today, and, unless otherwise indicated, the interactions with patient, family, and staff as well as the review of records all occurred today. I also attest that the listed assessment and stated plan reflect my best clinical judgment today based on the combination of historical information, prior notes, and today's exam/ interactions. When time spent is documented, it refers only to time spent today by the signer, or if indicated, combined time spent today by collaborating physician/nurse practitioner.
[2018-05-17] MEDS: Sod Chloride 0.9% Inj 1,000 ML IV.CONT SCH ×2 (02:24→08:31)
[2018-05-17 04:59] LABS: Baso % (Auto) 0.2 % (0.0-2.0); Eos # (Auto) 0.2 th/mm3 (0.0-0.4); Eos % (Auto) 2.5 % (0.0-4.0); Hematocrit 28.2 % (39.0-51.0); Hemoglobin 9.8 gm/dL (13.0-17.0); Lymph # (Auto) 1.2 th/mm3 (1.0-4.8); Lymph % (Auto) 12.9 % (9.0-44.0); Mean Corpuscular HGB Conc 34.7 % (32.0-36.0); Mean Corpuscular Hemoglobin 30.6 pg (27.0-34.0); Mean Corpuscular Volume 88.2 fL (80.0-100.0); Mono # (Auto) 0.6 th/mm3 (0.0-0.9); Mono % (Auto) 6.7 % (0.0-8.0); Neut # (Auto) 7.2 th/mm3 (1.8-7.7); Neut % (Auto) 77.7 % (16.0-70.0); Platelet Count 213 th/mm3 (150-450); Red Cell Distribution Width 14.6 % (11.6-17.2); White Blood Count 9.2 th/mm3 (4.0-11.0)
[2018-05-17 05:06] LABS: Anion Gap 7 meq/L (5-15); Blood Urea Nitrogen 8 mg/dL (7-18); Calcium 7.7 mg/dL (8.5-10.1); Carbon Dioxide 26.2 meq/L (21.0-32.0); Chloride 106 meq/L (98-107); Glomerular Filtration Rate Greater Than 89 mL/min (>89); Glucose,Random 122 mg/dL (74-106); Potassium 3.8 meq/L (3.5-5.1); Sodium 139 meq/L (136-145)
[2018-05-17 05:17] LABS: INR 1.3 Ratio; Prothrombin Time 13.5 sec (9.8-11.6)
[2018-05-17] MEDS: Heparin Drip 25,000 UNIT/250 ML BAG IV.CONT PRN (05:25)
[2018-05-17] MEDS ORDERED: Bisacodyl 10 MG Supp RECTAL PRN (06:49)
[2018-05-17] MEDS: Senna/Docusate Sodium 8.6/50 MG Tablet PO SCH ×2 (08:31→20:51)
--- NOTE | 2018-05-17 10:26 | P.PNGI ---
Subjective Interval history: Patient sitting up in bed Awake and alert with family at bedside Tolerated greater than 50% of breakfast meal Denies abdominal pain nausea or vomiting No reported or noted bleeding Physical Exam Vital signs: Vital Signs 05/16/18 10:30 05/16/18 10:45 05/16/18 11:00 Temperature Pulse Rate 90 105 H 99 H Respiratory Rate 17 28 H 31 H Blood Pressure 151/81 H 164/78 H 147/59 H Pulse Oximetry 97 98 96 05/16/18 11:15 05/16/18 11:30 05/16/18 11:45 Temperature Pulse Rate 93 H 88 87 Respiratory Rate 22 24 17 Blood Pressure 141/65 H 128/62 121/64 Pulse Oximetry 97 98 97 05/16/18 12:00 05/16/18 12:15 05/16/18 12:18 Temperature 99.7 F H Pulse Rate 101 H 98 H 97 H Respiratory Rate 24 20 17 Blood Pressure 116/66 115/68 135/63 Pulse Oximetry 97 97 97 05/16/18 12:30 05/16/18 12:45 05/16/18 13:00 Temperature Pulse Rate 92 H 103 H 101 H Respiratory Rate 17 21 24 Blood Pressure 120/63 149/88 H 124/70 Pulse Oximetry 98 99 98 05/16/18 13:15 05/16/18 13:30 05/16/18 13:43 Temperature Pulse Rate 100 H 110 H 109 H Respiratory Rate 16 23 16 Blood Pressure 120/65 116/67 117/67 Pulse Oximetry 96 97 96 05/16/18 13:45 05/16/18 13:57 05/16/18 14:00 Temperature Pulse Rate 107 H 126 H 131 H Respiratory Rate 17 24 21 Blood Pressure 123/77 133/86 Pulse Oximetry 96 97 97 05/16/18 14:14 05/16/18 14:15 05/16/18 14:16 Temperature Pulse Rate 133 H 120 H Respiratory Rate 43 H Blood Pressure 115/67 Pulse Oximetry 05/16/18 14:30 05/16/18 14:45 05/16/18 15:00 Temperature Pulse Rate 117 H 115 H 107 H Respiratory Rate 18 21 17 Blood Pressure 106/64 106/63 108/63 Pulse Oximetry 96 96 96 05/16/18 15:15 05/16/18 15:25 05/16/18 15:30 Temperature Pulse Rate 102 H 97 H 98 H Respiratory Rate 15 15 16 Blood Pressure 100/61 106/63 107/62 Pulse Oximetry 95 96 96 05/16/18 15:45 05/16/18 16:00 05/16/18 16:15 Temperature 99.5 F Pulse Rate 106 H 103 H 94 H Respiratory Rate 17 15 15 Blood Pressure 123/72 116/66 111/65 Pulse Oximetry 96 96 97 05/16/18 16:30 05/16/18 16:45 05/16/18 17:00 Temperature Pulse Rate 103 H 101 H 98 H Respiratory Rate 16 16 18 Blood Pressure 132/65 129/68 143/78 H Pulse Oximetry 97 97 98 05/16/18 17:15 05/16/18 17:30 05/16/18 17:45 Temperature Pulse Rate 101 H 97 H 98 H Respiratory Rate 21 23 24 Blood Pressure 139/77 143/79 H 142/73 H Pulse Oximetry 99 99 98 05/16/18 18:00 05/16/18 18:15 05/16/18 18:30 Temperature Pulse Rate 85 98 H 98 H Respiratory Rate 16 25 H 18 Blood Pressure 129/66 149/74 H 175/88 H Pulse Oximetry 97 97 97 05/16/18 18:45 05/16/18 19:00 05/16/18 19:15 Temperature Pulse Rate 100 H 98 H 97 H Respiratory Rate 20 18 16 Blood Pressure 168/92 H 142/78 H 139/71 Pulse Oximetry 98 98 97 05/16/18 19:30 05/16/18 19:45 05/16/18 20:00 Temperature 98.6 F Pulse Rate 97 H 96 H 100 H Respiratory Rate 16 16 18 Blood Pressure 130/66 141/80 H 147/81 H Pulse Oximetry 97 96 97 05/16/18 20:15 05/16/18 20:30 05/16/18 20:45 Temperature Pulse Rate 97 H 97 H 95 H Respiratory Rate 21 19 21 Blood Pressure 144/78 H 154/86 H 129/79 Pulse Oximetry 97 98 97 05/16/18 21:00 05/16/18 21:15 05/16/18 21:30 Temperature Pulse Rate 95 H 92 H 97 H Respiratory Rate 27 H 21 27 H Blood Pressure 153/82 H 137/71 144/74 H Pulse Oximetry 98 97 97 05/16/18 21:45 05/16/18 22:00 05/16/18 22:15 Temperature Pulse Rate 94 H 86 84 Respiratory Rate 33 H 19 27 H Blood Pressure 136/67 132/69 125/66 Pulse Oximetry 97 97 98 05/16/18 22:30 05/16/18 22:45 05/16/18 23:00 Temperature Pulse Rate 80 94 H 82 Respiratory Rate 19 22 19 Blood Pressure 120/64 114/66 147/71 H Pulse Oximetry 96 75 L 97 05/16/18 23:15 05/16/18 23:30 05/16/18 23:45 Temperature Pulse Rate 80 84 82 Respiratory Rate 17 19 16 Blood Pressure 115/66 148/74 H 142/75 H Pulse Oximetry 96 99 99 05/16/18 23:52 05/17/18 00:00 05/17/18 00:15 Temperature 98.3 F Pulse Rate 82 81 Respiratory Rate 25 H 14 Blood Pressure 142/76 H 148/77 H Pulse Oximetry 99 99 100 05/17/18 00:30 05/17/18 00:45 05/17/18 01:00 Temperature Pulse Rate 78 81 76 Respiratory Rate 14 23 15 Blood Pressure 151/84 H 154/85 H 149/73 H Pulse Oximetry 96 92 L 99 05/17/18 01:15 05/17/18 01:30 05/17/18 01:45 Temperature Pulse Rate 90 95 H 88 Respiratory Rate 18 18 Blood Pressure 155/81 H 151/76 H 149/75 H Pulse Oximetry 59 L 99 97 05/17/18 02:00 05/17/18 02:15 05/17/18 02:30 Temperature Pulse Rate 82 88 90 Respiratory Rate 15 18 16 Blood Pressure 132/71 134/77 131/79 Pulse Oximetry 98 97 97 05/17/18 02:45 05/17/18 03:00 05/17/18 03:15 Temperature Pulse Rate 81 87 81 Respiratory Rate 15 16 15 Blood Pressure 134/68 128/66 141/70 H Pulse Oximetry 98 98 99 05/17/18 03:30 05/17/18 03:45 05/17/18 04:00 Temperature 97.9 F Pulse Rate 82 82 91 H Respiratory Rate 15 15 19 Blood Pressure 142/82 H 144/85 H 150/84 H Pulse Oximetry 99 99 99 05/17/18 04:15 05/17/18 04:30 05/17/18 08:00 Temperature Pulse Rate 99 H 91 H Respiratory Rate 28 H 19 Blood Pressure 147/92 H 150/84 H Pulse Oximetry 99 99 99 Intake & Output 05/16/18 05/17/18 05/17/18 18:59 06:59 18:59 Intake Total 1820 / 1820 1730 / 1730 1000 / 1000 Output Total 1525 / 1525 1450 / 1450 Balance 295 / 295 280 / 280 1000 / 1000 Weight 76.5 kg Intake: IV 1100 / 1100 1250 / 1250 1000 / 1000 Heparin/D5W 25,000 U/250 mL 25, 250 / 250 000 unit In 250 ml @ Per Protocol IV.CONT TITRATE PRN Rx #[id number] NS Inj 1,000 ML @ 100 mls/hr IV 1000 / 1000 1000 / 1000 1000 / 1000 .CONT .Q10H DIONISIO Rx#:[id number] KCl 40 mEq Premix Inj 40 meq In 100 / 100 100 ml @ 25 mls/hr IV.SIG UNSCH PRN Rx#:[id number] Oral 720 / 720 480 / 480 Output: Urine Amount (Catheter) 1525 / 1525 1450 / 1450 Condom 1525 / 1525 1450 / 1450 Other: # Incontinent Voids 2 Date of Last Bowel Movement 05/12/18 05/12/18 - Constitutional no acute distress - Routine HEENT Exam Head: Present: normocephalic - Routine Respiratory Exam Present: CTA bilaterally - Routine Cardiovascular Exam Present: RRR - Routine Abdominal Exam Present: soft, normoactive bowel sounds. Absent: tenderness, distended, guarding, firm - Routine Skin Exam Present: dry, warm. Absent: pallor - Routine Neurological Exam Present: alert - Urinary Catheter Management Condom Cath placed during this visit: no Reason for continuing: Hourly intake/output Results - Labs CBC & Chem 7: 05/17/18 04:27 05/17/18 04:27 Laboratory Results - last 24 hr 05/16/18 05/16/18 05/17/18 14:18 14:18 04:27 WBC 9.2 RBC 3.20 L Hgb 9.8 L Hct 28.2 L MCV 88.2 MCH 30.6 MCHC 34.7 RDW 14.6 Plt Count 213 MPV 7.0 Neut % (Auto) 77.7 H Lymph % (Auto) 12.9 [place] % (Auto) 6.7 Eos % (Auto) 2.5 Baso % (Auto) 0.2 Neut # (Auto) 7.2 Lymph # (Auto) 1.2 [place] # (Auto) 0.6 Eos # (Auto) 0.2 Baso # (Auto) 0.0 WBC Differential . Differential Comment Auto diff final PT 11.4 INR 1.1 APTT Sodium Potassium 3.5 Chloride Carbon Dioxide Anion Gap BUN Creatinine Estimated GFR Random Glucose Calcium 05/17/18 05/17/18 05/17/18 04:27 04:27 04:27 WBC RBC Hgb Hct MCV MCH MCHC RDW Plt Count MPV Neut % (Auto) Lymph % (Auto) [place] % (Auto) Eos % (Auto) Baso % (Auto) Neut # (Auto) Lymph # (Auto) [place] # (Auto) Eos # (Auto) Baso # (Auto) WBC Differential Differential Comment PT 13.5 H INR 1.3 APTT 59.8 H Sodium 139 Potassium 3.8 Chloride 106 Carbon Dioxide 26.2 Anion Gap 7 BUN 8 Creatinine 0.67 Estimated GFR Greater than 89 Random Glucose 122 H Calcium 7.7 L Assessment and Plan (1) Heme positive stool Status: Acute Code(s): R19.5 - Other fecal abnormalities - Plan Patient is an 83-year-old male who presented to the emergency department at [facility] as a stroke alert. Patient medical history significant for acute CVA, hypertension, or carotid artery stenosis, dysarthria and BPH. Patient suffered a stroke 3 weeks ago. Currently patient has right-sided weakness and aphasia. Patient currently on heparin drip and was on Plavix prior to admission. Last dose of Plavix noted 05/11/2018. Our service has been consulted to evaluate patient for heme positive stools. Upon consultation, patient spouse endorses that patient has had dark stools for the last 3-4 days while in the rehab center. She reports that he has had no complaints of nausea or vomiting but did endorse some lower abdominal discomfort. His spouse denies any known change in bowel habits. She denies knowledge of patient ever having had an EGD or colonoscopy in the past. Past medical history is significant for tonsillectomy as a child and right knee repair as an adult. She denies any known family history for gastrointestinal issues and states that patient does not smoke or use alcohol products Heme positive stools Spouse endorses onset of dark stools 3-4 days prior to admission. Patient post acute CVA currently on heparin infusion. Patient was on Plavix 75 mg p.o. daily. Last noted dose 05/11/2018. (05/11) hemoglobin 10.1 hematocrit 28.8 ,05/13/2018 hemoglobin 8.0 hematocrit 22.9 platelet count 247 INR 1.1. * BP presently 96/51 [place]-Synephrine infusing. 05/14/2018 patient is awake but randomly moves around in the bed answered a couple of simple questions but otherwise still appears to have some altered mental status. Questionable tolerance to nuclear medicine scan or bleeding scan. Off Plavix for now melena stools noted approximately 2 days ago but last stool noted brown soft semi-loose no obvious bleeding. Colonoscopy according to family was approximately [address] Walden, has not seen patient since. N.p.o. this a.m. and heparin drip has been held but cannot do colonoscopy today without prep. Family seems to want aggressive GI care if it will allow patient to have some quality of life. Will consider colonoscopy probable Wednesday as long as okay with neurology and BP remains systolic greater than 140. Status post EGD on 05/13/2018 there was [place] Class B esophagitis noted. 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 The stricture was traversable. STOMACH: The mucosa of the stomach appeared normal. Erosive duodenitis. Could be contributing to drop in hemoglobin. No further melena stools noted DUODENUM: Moderate duodenal inflammation was found in the duodenal bulb. Hiatal hernia, Hemoglobin appears to be fairly stable at 7.9 for now 05/15/2018 patient appears to be stronger today and more alert denies any nausea vomiting or abdominal pain. Neuro and Dr. Sun discussed timing of colonoscopy. Recommendation was in the next few weeks unless patient has active bleeding. Patient is currently n.p.o. and needs speech evaluation for swallow , hemoglobin now 9.3, stable no obvious rectal bleeding we will continue to monitor 05/16/2018 Patient awake and alert, spouse and granddaughter at bedside. Noted recommendation for colonoscopy in a few weeks. No active or reported bleeding noted. Patient post speech evaluation. Hemoglobin 9.5 hematocrit 27.0 stable. GI will continue to monitor patient closely. 05/17/2018 Patient very much awake and alert. Able to answer questions appropriately. Spouse and granddaughter at bedside. No active or reported bleeding noted. Patient tolerated greater than 50% of breakfast meal. As per family request and neurology recommendation, will hold off with colonoscopy for a few weeks unless further bleeding noted. 05/17/2018 WBC 9.2 hemoglobin 9.8 hematocrit 28.2 platelet count 213 Plan -Diet as per speech therapy -Monitor for bleeding-notify GI for any active bleeding -Transfuse if needed -Plan is for colonoscopy when patient stable in a few weeks -Monitor hemoglobin and hematocrit -Continue PPI -Continue bowel regimen -Supportive care -GI will sign off at this time, please notify for further needs This patient has been seen by myself and Dr. Ramires and this note is written on his behalf - Attending Attestation Dr. Ramires
[2018-05-17] MEDS: Gentamicin 0.3% Opth Drops 5 ML Bottle EACH EYE SCH ×3 (11:03→17:28)
[2018-05-17] MEDS: Pantoprazole Inj 40 MG Vial IV.PUSH SCH ×2 (11:03→21:13)
--- NOTE | 2018-05-17 11:41 | P.PNFP ---
Subjective Interval history: There were no acute events overnight. Blood pressure has been stable and not requiring midodrine since 2 PM yesterday. He is not oriented to person place or time today. He does not currently report any complaints, however full review of systems is unable to be completed due to his mental status. <Luis Antonio Ann - 05/17/18 11:40> Results - Labs Result diagrams: 05/18/18 08:34 05/18/18 08:34 <Facundo Thomas - 05/18/18 13:57> Abnormal lab results 05/18/18 05/18/18 05/18/18 Range/Units 04:12 04:12 08:34 RBC 3.33 L (4.50-5.90) mil/mm3 Hgb 10.3 L (13.0-17.0) gm/dL Hct 29.5 L (39.0-51.0) % Neut % (Auto) 78.1 H (16.0-70.0) % PT 31.9 H D (9.8-11.6) sec APTT 68.5 H (23.4-31.7) sec Random Glucose (74-106) mg/dL 05/18/18 Range/Units 08:34 RBC (4.50-5.90) mil/mm3 Hgb (13.0-17.0) gm/dL Hct (39.0-51.0) % Neut % (Auto) (16.0-70.0) % PT (9.8-11.6) sec APTT (23.4-31.7) sec Random Glucose 125 H (74-106) mg/dL Short CBC 05/18/18 Range/Units 08:34 WBC 8.7 (4.0-11.0) th/mm3 Hgb 10.3 L (13.0-17.0) gm/dL Hct 29.5 L (39.0-51.0) % Plt Count 212 (150-450) th/mm3 BMP 05/18/18 08:34 Sodium 139 Potassium 3.5 Chloride 105 Carbon Dioxide 25.5 BUN 7 Creatinine 0.65 Calcium 8.5 D Urine 05/17/18 Range/Units 18:00 Urine Color Yellow (Yellw/Straw) Urine Clarity Clear (Clear) Urine pH 7.0 (5.0-8.5) Ur Specific Kyle 1.004 (1.002-1.035) Urine Protein Negative (Neg-Trace) mg/dL Urine Glucose (UA) Negative (Negative) mg/dL <Facundo Thomas - 05/18/18 13:57> Abnormal lab results 05/17/18 05/17/18 05/17/18 Range/Units 04:27 04:27 04:27 RBC 3.20 L (4.50-5.90) mil/mm3 Hgb 9.8 L (13.0-17.0) gm/dL Hct 28.2 L (39.0-51.0) % Neut % (Auto) 77.7 H (16.0-70.0) % PT 13.5 H (9.8-11.6) sec APTT (23.4-31.7) sec Random Glucose 122 H (74-106) mg/dL Calcium 7.7 L (8.5-10.1) mg/dL 05/17/18 Range/Units 04:27 RBC (4.50-5.90) mil/mm3 Hgb (13.0-17.0) gm/dL Hct (39.0-51.0) % Neut % (Auto) (16.0-70.0) % PT (9.8-11.6) sec APTT 59.8 H (23.4-31.7) sec Random Glucose (74-106) mg/dL Calcium (8.5-10.1) mg/dL Short CBC 05/17/18 Range/Units 04:27 WBC 9.2 (4.0-11.0) th/mm3 Hgb 9.8 L (13.0-17.0) gm/dL Hct 28.2 L (39.0-51.0) % Plt Count 213 (150-450) th/mm3 BMP 05/16/18 05/17/18 14:18 04:27 Sodium 139 Potassium 3.5 3.8 Chloride 106 Carbon Dioxide 26.2 BUN 8 Creatinine 0.67 Calcium 7.7 L <Luis Antonio Ann - 05/17/18 11:40> Physical Exam Vital signs: Vital Signs 05/17/18 14:00 05/17/18 14:01 05/17/18 14:15 Temperature Pulse Rate 105 H 103 H 98 H Respiratory Rate Blood Pressure 142/72 H Pulse Oximetry 97 96 97 05/17/18 14:30 05/17/18 14:45 05/17/18 15:00 Temperature Pulse Rate 95 H 74 90 Respiratory Rate Blood Pressure Pulse Oximetry 97 97 96 05/17/18 15:01 05/17/18 15:15 05/17/18 15:30 Temperature Pulse Rate 89 85 66 Respiratory Rate Blood Pressure 119/63 Pulse Oximetry 96 96 97 05/17/18 15:45 05/17/18 16:00 05/17/18 16:01 Temperature Pulse Rate 63 76 83 Respiratory Rate 16 Blood Pressure 131/80 Pulse Oximetry 99 99 98 05/17/18 16:15 05/17/18 16:30 05/17/18 16:45 Temperature Pulse Rate 62 66 50 L Respiratory Rate 16 Blood Pressure Pulse Oximetry 98 98 97 05/17/18 17:00 05/17/18 17:01 05/17/18 17:15 Temperature Pulse Rate 51 L 51 L Respiratory Rate 15 15 Blood Pressure 132/70 Pulse Oximetry 98 97 98 05/17/18 17:30 05/17/18 17:45 05/17/18 18:00 Temperature Pulse Rate 81 86 94 H Respiratory Rate 17 17 17 Blood Pressure Pulse Oximetry 97 97 97 05/17/18 18:01 05/17/18 18:15 05/17/18 18:30 Temperature Pulse Rate 77 96 H 101 H Respiratory Rate 17 19 16 Blood Pressure 150/83 H Pulse Oximetry 97 97 97 05/17/18 18:45 05/17/18 19:00 05/17/18 19:01 Temperature Pulse Rate 81 103 H 94 H Respiratory Rate 16 18 27 H Blood Pressure 133/69 Pulse Oximetry 97 96 98 05/17/18 19:15 05/17/18 19:30 05/17/18 19:45 Temperature Pulse Rate 75 97 H 67 Respiratory Rate 18 17 15 Blood Pressure Pulse Oximetry 97 98 97 05/17/18 20:00 05/17/18 20:01 05/17/18 20:15 Temperature 99.0 F Pulse Rate 89 71 93 H Respiratory Rate 16 16 17 Blood Pressure 129/74 124/73 Pulse Oximetry 96 99 97 05/17/18 20:30 05/17/18 20:45 12/11/18 21:00 Temperature Pulse Rate 95 H 99 H 88 Respiratory Rate 17 29 H 15 Blood Pressure Pulse Oximetry 97 98 97 05/17/18 21:01 05/17/18 21:15 05/17/18 21:30 Temperature Pulse Rate 89 95 H 86 Respiratory Rate 15 19 14 Blood Pressure 129/74 Pulse Oximetry 97 97 96 05/17/18 21:45 05/17/18 22:00 05/17/18 22:01 Temperature Pulse Rate 82 82 83 Respiratory Rate 14 15 13 Blood Pressure 129/64 Pulse Oximetry 99 82 L 99 05/17/18 22:15 05/17/18 22:30 05/17/18 22:45 Temperature Pulse Rate 83 98 H 86 Respiratory Rate 13 20 14 Blood Pressure Pulse Oximetry 98 98 97 05/17/18 23:00 05/17/18 23:01 05/17/18 23:15 Temperature Pulse Rate 85 85 84 Respiratory Rate 14 14 13 Blood Pressure 133/68 Pulse Oximetry 97 97 97 05/17/18 23:30 05/17/18 23:45 05/18/18 00:00 Temperature 98.7 F Pulse Rate 80 104 H 88 Respiratory Rate 13 17 14 Blood Pressure 132/67 Pulse Oximetry 98 99 98 05/18/18 00:01 05/18/18 00:15 05/18/18 00:30 Temperature Pulse Rate 87 83 95 H Respiratory Rate 18 13 19 Blood Pressure 132/67 Pulse Oximetry 98 98 99 05/18/18 00:45 05/18/18 01:00 05/18/18 01:01 Temperature Pulse Rate 90 87 87 Respiratory Rate 14 14 19 Blood Pressure 135/75 Pulse Oximetry 97 97 96 05/18/18 01:15 05/18/18 01:30 05/18/18 01:45 Temperature Pulse Rate 82 93 H 84 Respiratory Rate 13 19 12 Blood Pressure Pulse Oximetry 98 100 98 05/18/18 02:00 05/18/18 02:01 05/18/18 02:15 Temperature Pulse Rate 79 80 106 H Respiratory Rate 15 16 33 H Blood Pressure 128/82 Pulse Oximetry 99 99 99 05/18/18 02:30 05/18/18 02:45 05/18/18 03:00 Temperature Pulse Rate 96 H 96 H 96 H Respiratory Rate 13 22 16 Blood Pressure Pulse Oximetry 98 97 97 05/18/18 03:01 05/18/18 03:15 05/18/18 03:30 Temperature Pulse Rate 95 H 97 H 95 H Respiratory Rate 17 20 17 Blood Pressure 129/77 Pulse Oximetry 98 97 97 05/18/18 03:45 05/18/18 04:00 05/18/18 04:01 Temperature 98.9 F Pulse Rate 85 86 86 Respiratory Rate 13 13 13 Blood Pressure 132/78 132/78 Pulse Oximetry 96 97 96 05/18/18 04:15 05/18/18 04:30 05/18/18 08:00 Temperature Pulse Rate 90 87 87 Respiratory Rate 16 14 14 Blood Pressure Pulse Oximetry 96 97 97 Intake & Output 05/17/18 05/18/18 05/18/18 18:59 06:59 18:59 Intake Total 1830 / 1830 120 / 120 250 / 250 Output Total 1700 / 1700 0 / 0 Balance 130 / 130 120 / 120 250 / 250 Weight 76.4 kg Intake: IV 1300 / 1300 250 / 250 Heparin/D5W 25,000 U/250 mL 25, 250 / 250 000 unit In 250 ml @ Per Protocol IV.CONT TITRATE PRN Rx #:[id number] NS Inj 1,000 ML @ 100 mls/hr IV 1300 / 1300 .CONT .Q10H DIONISIO Rx#:[id number] Oral 480 / 480 120 / 120 Anesthesia Amount 50 / 50 Output: Urine 250 / 250 Stool 0 / 0 Urine Amount (Catheter) 1450 / 1450 Condom 1450 / 1450 Other: # Voids 2 # Incontinent Voids 2 # Urine Diapers 1 Date of Last Bowel Movement 05/12/18 05/12/18 05/12/18 # Bowel Movements 0 # Incontinent Bowel Movements 1 <Facundo Thomas - 05/18/18 13:57> Vital Signs 05/16/18 11:30 05/16/18 11:45 05/16/18 12:00 Temperature 99.7 F H Pulse Rate 88 87 101 H Respiratory Rate 24 17 24 Blood Pressure 128/62 121/64 116/66 Pulse Oximetry 98 97 97 05/16/18 12:15 05/16/18 12:18 05/16/18 12:30 Temperature Pulse Rate 98 H 97 H 92 H Respiratory Rate 20 17 17 Blood Pressure 115/68 135/63 120/63 Pulse Oximetry 97 97 98 05/16/18 12:45 05/16/18 13:00 05/16/18 13:15 Temperature Pulse Rate 103 H 101 H 100 H Respiratory Rate 21 24 16 Blood Pressure 149/88 H 124/70 120/65 Pulse Oximetry 99 98 96 05/16/18 13:30 05/16/18 13:43 05/16/18 13:45 Temperature Pulse Rate 110 H 109 H 107 H Respiratory Rate 23 16 17 Blood Pressure 116/67 117/67 123/77 Pulse Oximetry 97 96 96 05/16/18 13:57 05/16/18 14:00 05/16/18 14:14 Temperature Pulse Rate 126 H 131 H 133 H Respiratory Rate 24 21 43 H Blood Pressure 133/86 Pulse Oximetry 97 97 05/16/18 14:15 05/16/18 14:16 05/16/18 14:30 Temperature Pulse Rate 120 H 117 H Respiratory Rate 18 Blood Pressure 115/67 106/64 Pulse Oximetry 96 05/16/18 14:45 05/16/18 15:00 05/16/18 15:15 Temperature Pulse Rate 115 H 107 H 102 H Respiratory Rate 21 17 15 Blood Pressure 106/63 108/63 100/61 Pulse Oximetry 96 96 95 05/16/18 15:25 05/16/18 15:30 05/16/18 15:45 Temperature Pulse Rate 97 H 98 H 106 H Respiratory Rate 15 16 17 Blood Pressure 106/63 107/62 123/72 Pulse Oximetry 96 96 96 05/16/18 16:00 05/16/18 16:15 05/16/18 16:30 Temperature 99.5 F Pulse Rate 103 H 94 H 103 H Respiratory Rate 15 15 16 Blood Pressure 116/66 111/65 132/65 Pulse Oximetry 96 97 97 05/16/18 16:45 05/16/18 17:00 05/16/18 17:15 Temperature Pulse Rate 101 H 98 H 101 H Respiratory Rate 16 18 21 Blood Pressure 129/68 143/78 H 139/77 Pulse Oximetry 97 98 99 05/16/18 17:30 05/16/18 17:45 05/16/18 18:00 Temperature Pulse Rate 97 H 98 H 85 Respiratory Rate 23 24 16 Blood Pressure 143/79 H 142/73 H 129/66 Pulse Oximetry 99 98 97 05/16/18 18:15 05/16/18 18:30 05/16/18 18:45 Temperature Pulse Rate 98 H 98 H 100 H Respiratory Rate 25 H 18 20 Blood Pressure 149/74 H 175/88 H 168/92 H Pulse Oximetry 97 97 98 05/16/18 19:00 05/16/18 19:15 05/16/18 19:30 Temperature Pulse Rate 98 H 97 H 97 H Respiratory Rate 18 16 16 Blood Pressure 142/78 H 139/71 130/66 Pulse Oximetry 98 97 97 05/16/18 19:45 05/16/18 20:00 05/16/18 20:15 Temperature 98.6 F Pulse Rate 96 H 100 H 97 H Respiratory Rate 16 18 21 Blood Pressure 141/80 H 147/81 H 144/78 H Pulse Oximetry 96 97 97 05/16/18 20:30 05/16/18 20:45 05/16/18 21:00 Temperature Pulse Rate 97 H 95 H 95 H Respiratory Rate 19 21 27 H Blood Pressure 154/86 H 129/79 153/82 H Pulse Oximetry 98 97 98 05/16/18 21:15 05/16/18 21:30 05/16/18 21:45 Temperature Pulse Rate 92 H 97 H 94 H Respiratory Rate 21 27 H 33 H Blood Pressure 137/71 144/74 H 136/67 Pulse Oximetry 97 97 97 05/16/18 22:00 05/16/18 22:15 05/16/18 22:30 Temperature Pulse Rate 86 84 80 Respiratory Rate 19 27 H 19 Blood Pressure 132/69 125/66 120/64 Pulse Oximetry 97 98 96 05/16/18 22:45 05/16/18 23:00 05/16/18 23:15 Temperature Pulse Rate 94 H 82 80 Respiratory Rate 22 19 17 Blood Pressure 114/66 147/71 H 115/66 Pulse Oximetry 75 L 97 96 05/16/18 23:30 05/16/18 23:45 05/16/18 23:52 Temperature Pulse Rate 84 82 Respiratory Rate 19 16 Blood Pressure 148/74 H 142/75 H Pulse Oximetry 99 99 99 05/17/18 00:00 05/17/18 00:15 05/17/18 00:30 Temperature 98.3 F Pulse Rate 82 81 78 Respiratory Rate 25 H 14 14 Blood Pressure 142/76 H 148/77 H 151/84 H Pulse Oximetry 99 100 96 05/17/18 00:45 05/17/18 01:00 05/17/18 01:15 Temperature Pulse Rate 81 76 90 Respiratory Rate 23 15 18 Blood Pressure 154/85 H 149/73 H 155/81 H Pulse Oximetry 92 L 99 59 L 05/17/18 01:30 05/17/18 01:45 05/17/18 02:00 Temperature Pulse Rate 95 H 88 82 Respiratory Rate 18 15 Blood Pressure 151/76 H 149/75 H 132/71 Pulse Oximetry 99 97 98 05/17/18 02:15 05/17/18 02:30 05/17/18 02:45 Temperature Pulse Rate 88 90 81 Respiratory Rate 18 16 15 Blood Pressure 134/77 131/79 134/68 Pulse Oximetry 97 97 98 05/17/18 03:00 05/17/18 03:15 05/17/18 03:30 Temperature Pulse Rate 87 81 82 Respiratory Rate 16 15 15 Blood Pressure 128/66 141/70 H 142/82 H Pulse Oximetry 98 99 99 05/17/18 03:45 05/17/18 04:00 05/17/18 04:15 Temperature 97.9 F Pulse Rate 82 91 H 99 H Respiratory Rate 15 19 28 H Blood Pressure 144/85 H 150/84 H 147/92 H Pulse Oximetry 99 99 99 05/17/18 04:30 05/17/18 05:30 05/17/18 05:45 Temperature Pulse Rate 91 H 77 83 Respiratory Rate 19 19 23 Blood Pressure 150/84 H 119/58 L 138/63 Pulse Oximetry 99 97 98 05/17/18 06:00 05/17/18 06:15 05/17/18 06:30 Temperature Pulse Rate 78 76 74 Respiratory Rate 14 24 17 Blood Pressure 144/67 H 155/72 H 149/66 H Pulse Oximetry 98 98 98 05/17/18 06:45 05/17/18 07:00 05/17/18 07:15 Temperature Pulse Rate 77 94 H 96 H Respiratory Rate 17 20 24 Blood Pressure 155/68 H 151/69 H 152/74 H Pulse Oximetry 98 100 99 05/17/18 07:30 05/17/18 07:45 05/17/18 08:00 Temperature Pulse Rate 95 H 89 88 Respiratory Rate 17 16 16 Blood Pressure 150/74 H 135/69 129/71 Pulse Oximetry 98 97 95 05/17/18 08:15 05/17/18 08:30 05/17/18 08:45 Temperature Pulse Rate 80 89 99 H Respiratory Rate 15 16 25 H Blood Pressure 130/61 140/67 153/83 H Pulse Oximetry 98 98 99 05/17/18 09:00 05/17/18 09:15 05/17/18 09:30 Temperature Pulse Rate 95 H 91 H 90 Respiratory Rate 17 18 18 Blood Pressure 143/81 H 139/83 142/80 H Pulse Oximetry 98 98 98 05/17/18 09:45 05/17/18 09:51 05/17/18 10:00 Temperature Pulse Rate 98 H 96 H 98 H Respiratory Rate 18 17 17 Blood Pressure 185/88 H 152/80 H 139/74 Pulse Oximetry 97 98 98 05/17/18 10:15 05/17/18 10:30 05/17/18 10:45 Temperature Pulse Rate 102 H 93 H 88 Respiratory Rate Blood Pressure 139/72 130/66 116/61 Pulse Oximetry 97 97 98 05/17/18 10:55 05/17/18 11:00 Temperature 98 F Pulse Rate 103 H 104 H Respiratory Rate Blood Pressure 116/74 136/77 Pulse Oximetry 98 99 Intake & Output 05/16/18 05/17/18 05/17/18 18:59 06:59 18:59 Intake Total 1820 / 1820 1730 / 1730 1000 / 1000 Output Total 1525 / 1525 1450 / 1450 Balance 295 / 295 280 / 280 1000 / 1000 Weight 76.5 kg Intake: IV 1100 / 1100 1250 / 1250 1000 / 1000 Heparin/D5W 25,000 U/250 mL 25, 250 / 250 000 unit In 250 ml @ Per Protocol IV.CONT TITRATE PRN Rx #:[id number] NS Inj 1,000 ML @ 100 mls/hr IV 1000 / 1000 1000 / 1000 1000 / 1000 .CONT .Q10H DIONISIO Rx#:[id number] KCl 40 mEq Premix Inj 40 meq In 100 / 100 100 ml @ 25 mls/hr IV.SIG UNSCH PRN Rx#:[id number] Oral 720 / 720 480 / 480 Output: Urine Amount (Catheter) 1525 / 1525 1450 / 1450 Condom 1525 / 1525 1450 / 1450 Other: # Incontinent Voids 2 Date of Last Bowel Movement 05/12/18 05/12/18 05/12/18 <Luis Antonio Ann - 05/17/18 11:40> Narrative: General: Well-developed, alert, and in no acute distress. Appears stated age. HEENT: Atraumatic, moist mucous membranes Neck: Supple, trachea midline Cardiac: Regular rate and rhythm without murmur Pulmonary: Non-labored breathing. Lungs clear to auscultation bilaterally with good air movement Abdomen: Normal bowel sounds, soft and non-tender without rebound or guarding Extremities: No edema, 2+ pedal pulses, capillary refill less than 2 seconds Neurologic: Oriented x0. Stable dysarthria. Pronator drift on the right side, stable. 5 out of 5 strength in the left upper and lower extremities. 4 out of 5 strength in the right upper and lower extremities. Facial muscle asymmetry noted with smiling. His confusion does wax and wane. <Luis Antonio Ann - 05/17/18 11:40> - Urinary Catheter Management Condom Cath placed during this visit: no <Facundo Thomas - 05/18/18 13:57> no <Luis Antonio Ann - 05/17/18 11:40> Reason for continuing: Hourly intake/output <Luis Antonio Ann 05/17/18 11:40> Assessment and Plan - Assessment (1) Acute CVA (cerebrovascular accident) Code(s): I63.9 - Cerebral infarction, unspecified Status: Acute (2) Confusion Code(s): R41.0 - Disorientation, unspecified Status: Acute (3) Hypertension Code(s): I10 - Essential (primary) hypertension Status: Acute (4) Internal carotid artery stenosis Code(s): I65.29 - Occlusion and stenosis of unspecified carotid artery Status : Acute (5) Dysarthria Code(s): R47.1 - Dysarthria and anarthria Status: Acute (6) Heme positive stool Code(s): R19.5 - Other fecal abnormalities Status: Acute <Facundo Thomas - 05/18/18 13:57> (1) Acute CVA (cerebrovascular accident) Code(s): I63.9 - Cerebral infarction, unspecified Status: Acute (2) Confusion Code(s): R41.0 - Disorientation, unspecified Status: Acute (3) Hypertension Code(s): I10 - Essential (primary) hypertension Status: Acute (4) Internal carotid artery stenosis Code(s): I65.29 - Occlusion and stenosis of unspecified carotid artery Status : Acute (5) Dysarthria Code(s): R47.1 - Dysarthria and anarthria Status: Acute (6) Heme positive stool Code(s): R19.5 - Other fecal abnormalities Status: Acute <Luis Antonio Ann - 05/17/18 11:28> - Assessment and Plan Patient is an 83-year-old male who presented with acute stroke and had a repeat stroke while hospitalized. He is 3 weeks s/p CVA and right-sided endarterectomy. He has a chronically occluded left carotid. Symptoms at this time include 4 out of 5 strength on the right, right facial droop, significant dysarthria, and significant receptive and expressive aphasia. He also has significant confusion and it is unclear how much of this is secondary to the stroke. Acute stroke: -Neurology is following Maintain systolic blood pressure greater than 120 with midodrine as needed -Plan for loop recorder placement on 05/18 -Continuous telemetry -Neurochecks every 4 hours -Continue Lipitor 80 mg p.o. at bedtime -Physical therapy recommends PT at rehab -Speech therapy: Will need continued therapy Anticoagulation -Hold daily aspirin 81 mg -Hold daily Plavix Currently on heparin drip and transitioning to warfarin Chronic hypertension: -Hold home antihypertensives due to pressure that is borderline for current post stroke goals. He has had systolic blood pressures but it ranged from the 110s to the 150s without medications. Vasotec for SBP greater than 180 or DBP greater than 110 Confusion: This may be entirely from his CVA, however other causes may contribute especially considering the time course of his symptoms. He does also have some chronic dementia symptoms. Urinalysis to assess for UTI was negative -Family was educated regarding wearing his hearing aids and reorienting him often Heme Positive stool: Reported black stools with heme positive. GI consulted and EGD showed some erosive duodenitis. Status post 1 unit PRBC. Hemoglobin has been stable. -GI recommends waiting to do the colonoscopy as an outpatient and has signed off Fluids: Adequate p.o. intake Electrolytes: monitor and replete as needed Nutrition: Mechanical soft diet with nectar thick liquids per speech therapy GI prophylaxis: Not indicated VTE prophylaxis: Currently on heparin drip and transitioning to warfarin CODE STATUS: He is a DO NOT RESUSCITATE CODE STATUS after discussion with the family. Goals of care remain otherwise aggressive Disposition: Will need extensive rehab after discharge. Anticipate discharge to SNF soon after loop recorder placement on 05/18 <Luis Antonio Ann - 05/17/18 11:40> - Attending Attestation See the residents documentation for details. I saw and evaluated the patient regarding the jenkins portions of this evaluation and agree with the residents findings and plans as written. Parts of this note were created using [employer] voice recognition software program. While efforts were made to correct any mistakes made by this software, some mistakes, errors, and omissions may remain in the final note that were not caught when the note was originally created. Plan of care was discussed and agreed upon with the patient as specifically documented in the above note. An opportunity to ask questions with explanation was provided. Patient voiced understanding on all information reviewed and discussed. <Facundo Thomas - 05/18/18 13:57>
--- NOTE | 2018-05-17 13:09 | P.PNPAL ---
Reason for Visit Reason for visit: a. To assist with evaluation and management of symptoms including: pain, debility, confusion b. To assist medical decision maker(s) with: better understanding of current medical conditions; weighing benefits/burdens of medical treatment options; making medical treatment decisions. Subjective Subjective/Interval History: Mr. Barber is an 83-year-old male who presented to [place] ED on 05/11/2018 via EMS as a stroke alert. Approximately 3 weeks earlier the patient suffered a stroke which left him with residual right-sided weakness, mild dysarthria, intermittent confusion. He was transferred to [facility] at discharge. Patient's functional status was slowly improving until the morning of 05/11/2018 when he developed additional and worsening symptoms. 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 The entire region of involvement is approximately 2.2 x 8.4 cm in greatest transaxial dimension. Follow-up visit for symptom management of pain and debility as well as clarification of medical treatment goals. Patient seen and assessed in [facility], room 1331, sitting upright in stretcher chair. Patient's son is at bedside. Oriented to self, able to tell me his name. Ongoing right-sided facial droop, dysarthria and receptive/expressive aphasia. Patient had an EGD on 05/13/2018 which showed LA class B esophagitis. 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 The mucosa of the stomach appeared normal. Erosive duodenitis. Duodenal inflammation was found in the duodenal bulb. Retroflexed views revealed a hiatal hernia. Plan for colonoscopy outpatient; GI has signed off. Swallow function was reevaluated on 05/16/18 with recommendations for mechanically soft diet and nectar consistency thickened liquids. Patient's intake improving; tolerated > 50% of breakfast meal. Blood pressure has been stable, not requiring PRN midodrine since 2pm yesterday 05/16/18. Clinical data: * WBC: 9.2, 9.8, 28.2, 213, neutrophils 77.5% * PT: 13.5, INR 1.3, APTT 59.8% * Sodium: 139, potassium 3.8, chloride 1, carbon dioxide 26.8, glucose 122, calcium 7.7 * BUN: 8, creatinine 0.67, GFR >89 Plan for discharge to [facility] shortly after loop recorder placement on 05/18/18. Goals remain aggressive up to the point of cardiopulmonary resuscitation. Family/Friend Interactions: See interval history Advance Directives Documented care wishes:: Family believes the patient completed written advanced directive and will bring a copy of the documents when they are found. Objective Vital Signs: Vital Signs 05/16/18 13:00 05/16/18 13:15 05/16/18 13:30 Temperature Pulse Rate 101 H 100 H 110 H Respiratory Rate 24 16 23 Blood Pressure 124/70 120/65 116/67 Pulse Oximetry 98 96 97 05/16/18 13:43 05/16/18 13:45 05/16/18 13:57 Temperature Pulse Rate 109 H 107 H 126 H Respiratory Rate 16 17 24 Blood Pressure 117/67 123/77 133/86 Pulse Oximetry 96 96 97 05/16/18 14:00 05/16/18 14:14 05/16/18 14:15 Temperature Pulse Rate 131 H 133 H Respiratory Rate 21 43 H Blood Pressure 115/67 Pulse Oximetry 97 05/16/18 14:16 05/16/18 14:30 05/16/18 14:45 Temperature Pulse Rate 120 H 117 H 115 H Respiratory Rate 18 21 Blood Pressure 106/64 106/63 Pulse Oximetry 96 96 05/16/18 15:00 05/16/18 15:15 05/16/18 15:25 Temperature Pulse Rate 107 H 102 H 97 H Respiratory Rate 17 15 15 Blood Pressure 108/63 100/61 106/63 Pulse Oximetry 96 95 96 05/16/18 15:30 05/16/18 15:45 05/16/18 16:00 Temperature 99.5 F Pulse Rate 98 H 106 H 103 H Respiratory Rate 16 17 15 Blood Pressure 107/62 123/72 116/66 Pulse Oximetry 96 96 96 05/16/18 16:15 05/16/18 16:30 05/16/18 16:45 Temperature Pulse Rate 94 H 103 H 101 H Respiratory Rate 15 16 16 Blood Pressure 111/65 132/65 129/68 Pulse Oximetry 97 97 97 05/16/18 17:00 05/16/18 17:15 05/16/18 17:30 Temperature Pulse Rate 98 H 101 H 97 H Respiratory Rate 18 21 23 Blood Pressure 143/78 H 139/77 143/79 H Pulse Oximetry 98 99 99 05/16/18 17:45 05/16/18 18:00 05/16/18 18:15 Temperature Pulse Rate 98 H 85 98 H Respiratory Rate 24 16 25 H Blood Pressure 142/73 H 129/66 149/74 H Pulse Oximetry 98 97 97 05/16/18 18:30 05/16/18 18:45 05/16/18 19:00 Temperature Pulse Rate 98 H 100 H 98 H Respiratory Rate 18 20 18 Blood Pressure 175/88 H 168/92 H 142/78 H Pulse Oximetry 97 98 98 05/16/18 19:15 05/16/18 19:30 05/16/18 19:45 Temperature Pulse Rate 97 H 97 H 96 H Respiratory Rate 16 16 16 Blood Pressure 139/71 130/66 141/80 H Pulse Oximetry 97 97 96 05/16/18 20:00 05/16/18 20:15 05/16/18 20:30 Temperature 98.6 F Pulse Rate 100 H 97 H 97 H Respiratory Rate 18 21 19 Blood Pressure 147/81 H 144/78 H 154/86 H Pulse Oximetry 97 97 98 05/16/18 20:45 05/16/18 21:00 05/16/18 21:15 Temperature Pulse Rate 95 H 95 H 92 H Respiratory Rate 21 27 H 21 Blood Pressure 129/79 153/82 H 137/71 Pulse Oximetry 97 98 97 05/16/18 21:30 05/16/18 21:45 05/16/18 22:00 Temperature Pulse Rate 97 H 94 H 86 Respiratory Rate 27 H 33 H 19 Blood Pressure 144/74 H 136/67 132/69 Pulse Oximetry 97 97 97 05/16/18 22:15 05/16/18 22:30 05/16/18 22:45 Temperature Pulse Rate 84 80 94 H Respiratory Rate 27 H 19 22 Blood Pressure 125/66 120/64 114/66 Pulse Oximetry 98 96 75 L 05/16/18 23:00 05/16/18 23:15 05/16/18 23:30 Temperature Pulse Rate 82 80 84 Respiratory Rate 19 17 19 Blood Pressure 147/71 H 115/66 148/74 H Pulse Oximetry 97 96 99 05/16/18 23:45 05/16/18 23:52 05/17/18 00:00 Temperature 98.3 F Pulse Rate 82 82 Respiratory Rate 16 25 H Blood Pressure 142/75 H 142/76 H Pulse Oximetry 99 99 99 05/17/18 00:15 05/17/18 00:30 05/17/18 00:45 Temperature Pulse Rate 81 78 81 Respiratory Rate 14 14 23 Blood Pressure 148/77 H 151/84 H 154/85 H Pulse Oximetry 100 96 92 L 05/17/18 01:00 05/17/18 01:15 05/17/18 01:30 Temperature Pulse Rate 76 90 95 H Respiratory Rate 15 18 Blood Pressure 149/73 H 155/81 H 151/76 H Pulse Oximetry 99 59 L 99 05/17/18 01:45 05/17/18 02:00 05/17/18 02:15 Temperature Pulse Rate 88 82 88 Respiratory Rate 18 15 18 Blood Pressure 149/75 H 132/71 134/77 Pulse Oximetry 97 98 97 05/17/18 02:30 05/17/18 02:45 05/17/18 03:00 Temperature Pulse Rate 90 81 87 Respiratory Rate 16 15 16 Blood Pressure 131/79 134/68 128/66 Pulse Oximetry 97 98 98 05/17/18 03:15 05/17/18 03:30 05/17/18 03:45 Temperature Pulse Rate 81 82 82 Respiratory Rate 15 15 15 Blood Pressure 141/70 H 142/82 H 144/85 H Pulse Oximetry 99 99 99 05/17/18 04:00 05/17/18 04:15 05/17/18 04:30 Temperature 97.9 F Pulse Rate 91 H 99 H 91 H Respiratory Rate 19 28 H 19 Blood Pressure 150/84 H 147/92 H 150/84 H Pulse Oximetry 99 99 99 05/17/18 05:30 05/17/18 05:45 05/17/18 06:00 Temperature Pulse Rate 77 83 78 Respiratory Rate 19 23 14 Blood Pressure 119/58 L 138/63 144/67 H Pulse Oximetry 97 98 98 05/17/18 06:15 05/17/18 06:30 05/17/18 06:45 Temperature Pulse Rate 76 74 77 Respiratory Rate 24 17 17 Blood Pressure 155/72 H 149/66 H 155/68 H Pulse Oximetry 98 98 98 05/17/18 07:00 05/17/18 07:15 05/17/18 07:30 Temperature Pulse Rate 94 H 96 H 95 H Respiratory Rate 20 24 17 Blood Pressure 151/69 H 152/74 H 150/74 H Pulse Oximetry 100 99 98 05/17/18 07:45 05/17/18 08:00 05/17/18 08:15 Temperature Pulse Rate 89 88 80 Respiratory Rate 16 16 15 Blood Pressure 135/69 129/71 130/61 Pulse Oximetry 97 95 98 05/17/18 08:30 05/17/18 08:45 05/17/18 09:00 Temperature Pulse Rate 89 99 H 95 H Respiratory Rate 16 25 H 17 Blood Pressure 140/67 153/83 H 143/81 H Pulse Oximetry 98 99 98 05/17/18 09:15 05/17/18 09:30 05/17/18 09:45 Temperature Pulse Rate 91 H 90 98 H Respiratory Rate 18 18 18 Blood Pressure 139/83 142/80 H 185/88 H Pulse Oximetry 98 98 97 05/17/18 09:51 05/17/18 10:00 05/17/18 10:15 Temperature Pulse Rate 96 H 98 H 102 H Respiratory Rate 17 17 Blood Pressure 152/80 H 139/74 139/72 Pulse Oximetry 98 98 97 05/17/18 10:30 05/17/18 10:45 05/17/18 10:55 Temperature Pulse Rate 93 H 88 103 H Respiratory Rate Blood Pressure 130/66 116/61 116/74 Pulse Oximetry 97 98 98 05/17/18 11:00 Temperature 98 F Pulse Rate 104 H Respiratory Rate Blood Pressure 136/77 Pulse Oximetry 99 Intake & Output 05/16/18 05/17/18 05/17/18 18:59 06:59 18:59 Intake Total 1820 / 1820 1730 / 1730 1000 / 1000 Output Total 1525 / 1525 1450 / 1450 Balance 295 / 295 280 / 280 1000 / 1000 Weight 76.5 kg Intake: IV 1100 / 1100 1250 / 1250 1000 / 1000 Heparin/D5W 25,000 U/250 mL 25, 250 / 250 000 unit In 250 ml @ Per Protocol IV.CONT TITRATE PRN Rx #:[id number] NS Inj 1,000 ML @ 100 mls/hr IV 1000 / 1000 1000 / 1000 1000 / 1000 .CONT .Q10H DIONISIO Rx#:[id number] KCl 40 mEq Premix Inj 40 meq In 100 / 100 100 ml @ 25 mls/hr IV.SIG UNSCH PRN Rx#:[id number] Oral 720 / 720 480 / 480 Output: Urine Amount (Catheter) 1525 / 1525 1450 / 1450 Condom 1525 / 1525 1450 / 1450 Other: # Incontinent Voids 2 Date of Last Bowel Movement 05/12/18 05/12/18 05/12/18 Physical Exam: CONSTITUTIONAL/GENERAL: This is an adequately nourished patient, in no apparent distress. TUBES/LINES/DRAINS: PIV SKIN: No jaundice, rashes, or lesions. Ecchymoses on upper extremities. No wounds seen anteriorly. Skin temperature appropriate. Not diaphoretic. HEAD: Atraumatic. Normocephalic. EYES: Pupils equal and round and reactive. Extraocular motions intact. No scleral icterus. No injection or drainage. Fundi not examined. ENT: Hearing grossly normal. Nose without bleeding or purulent drainage. Throat without visible erythema, exudates, masses, or lesions. NECK: Trachea midline. Supple, nontender. No palpable thyroid enlargement or nodularity. CARDIOVASCULAR: Regular rate and rhythm without murmurs, gallops, or rubs. No JVD. Peripheral pulses symmetric. RESPIRATORY/CHEST: Symmetric, unlabored respirations. Clear to auscultation. Breath sounds diminished bilaterally. No wheezes, rales, or rhonchi. GASTROINTESTINAL: Abdomen soft, nontender. No hepato-splenomegaly, or palpable masses. No guarding. Bowel sounds present. GENITOURINARY: Without palpable bladder distension. . MUSCULOSKELETAL: Extremities without clubbing, cyanosis, or edema. No calf tenderness. No mottling or clubbing. LYMPHATICS: No palpable cervical or supraclavicular adenopathy. NEUROLOGICAL: Aphasic. Dysarthria. Follows some simple one-step commands. PSYCHIATRIC: No obvious anxiety/depression. No apparent hallucinations or other psychotic thought process. Diagnostic Tests Laboratory: Laboratory Results - last 72 hr 05/14/18 05/14/18 05/14/18 16:00 16:00 22:30 WBC RBC Hgb Hct MCV MCH MCHC RDW Plt Count MPV Neut % (Auto) Lymph % (Auto) [place] % (Auto) Eos % (Auto) Baso % (Auto) Neut # (Auto) Lymph # (Auto) [place] # (Auto) Eos # (Auto) Baso # (Auto) WBC Differential Differential Comment PT INR APTT 55.6 H D 66.4 H Sodium Potassium Chloride Carbon Dioxide Anion Gap BUN Creatinine Estimated GFR Random Glucose Calcium Blood Type O Negative Antibody Screen Negative MTS Gel Crossmatch See Detail 05/15/18 05/15/18 05/15/18 04:26 04:26 04:26 WBC 10.2 RBC 3.16 L Hgb 9.3 L Hct 27.4 L MCV 86.6 MCH 29.5 MCHC 34.1 RDW 14.9 Plt Count 222 MPV 6.9 L Neut % (Auto) 77.3 H Lymph % (Auto) 12.2 [place] % (Auto) 7.4 Eos % (Auto) 2.6 Baso % (Auto) 0.5 Neut # (Auto) 7.9 H Lymph # (Auto) 1.2 [place] # (Auto) 0.8 Eos # (Auto) 0.3 Baso # (Auto) 0.0 WBC Differential . Differential Comment Auto diff final PT INR APTT 77.3 H Sodium 138 Potassium 3.5 Chloride 104 Carbon Dioxide 26.6 Anion Gap 7 BUN 7 Creatinine 0.64 Estimated GFR Greater than 89 Random Glucose 98 Calcium 7.7 L Blood Type Antibody Screen MTS Gel Crossmatch 05/15/18 05/15/18 05/16/18 09:00 16:15 04:00 WBC 10.2 RBC 3.09 L Hgb 9.5 L Hct 27.0 L MCV 87.5 MCH 30.7 MCHC 35.1 RDW 14.9 Plt Count 212 MPV 6.9 L Neut % (Auto) 78.1 H Lymph % (Auto) 12.6 [place] % (Auto) 6.1 Eos % (Auto) 2.6 Baso % (Auto) 0.6 Neut # (Auto) 8.0 H Lymph # (Auto) 1.3 [place] # (Auto) 0.6 Eos # (Auto) 0.3 Baso # (Auto) 0.1 WBC Differential . Differential Comment Auto diff final PT INR APTT 64.4 H 62.5 H Sodium Potassium Chloride Carbon Dioxide Anion Gap BUN Creatinine Estimated GFR Random Glucose Calcium Blood Type Antibody Screen MTS Gel Crossmatch 05/16/18 05/16/18 05/16/18 04:00 04:00 14:18 WBC RBC Hgb Hct MCV MCH MCHC RDW Plt Count MPV Neut % (Auto) Lymph % (Auto) [place] % (Auto) Eos % (Auto) Baso % (Auto) Neut # (Auto) Lymph # (Auto) [place] # (Auto) Eos # (Auto) Baso # (Auto) WBC Differential Differential Comment PT INR APTT 65.9 H Sodium 137 Potassium 3.3 L 3.5 Chloride 104 Carbon Dioxide 23.3 Anion Gap 10 BUN 11 Creatinine 0.73 Estimated GFR Greater than 89 Random Glucose 81 Calcium 8.2 L Blood Type Antibody Screen MTS Gel Crossmatch 05/16/18 05/17/18 05/17/18 14:18 04:27 04:27 WBC 9.2 RBC 3.20 L Hgb 9.8 L Hct 28.2 L MCV 88.2 MCH 30.6 MCHC 34.7 RDW 14.6 Plt Count 213 MPV 7.0 Neut % (Auto) 77.7 H Lymph % (Auto) 12.9 [place] % (Auto) 6.7 Eos % (Auto) 2.5 Baso % (Auto) 0.2 Neut # (Auto) 7.2 Lymph # (Auto) 1.2 [place] # (Auto) 0.6 Eos # (Auto) 0.2 Baso # (Auto) 0.0 WBC Differential . Differential Comment Auto diff final PT 11.4 INR 1.1 APTT Sodium 139 Potassium 3.8 Chloride 106 Carbon Dioxide 26.2 Anion Gap 7 BUN 8 Creatinine 0.67 Estimated GFR Greater than 89 Random Glucose 122 H Calcium 7.7 L Blood Type Antibody Screen MTS Gel Crossmatch 05/17/18 05/17/18 04:27 04:27 WBC RBC Hgb Hct MCV MCH MCHC RDW Plt Count MPV Neut % (Auto) Lymph % (Auto) [place] % (Auto) Eos % (Auto) Baso % (Auto) Neut # (Auto) Lymph # (Auto) [place] # (Auto) Eos # (Auto) Baso # (Auto) WBC Differential Differential Comment PT 13.5 H INR 1.3 APTT 59.8 H Sodium Potassium Chloride Carbon Dioxide Anion Gap BUN Creatinine Estimated GFR Random Glucose Calcium Blood Type Antibody Screen MTS Gel Crossmatch Result Diagrams: 05/17/18 04:27 05/17/18 04:27 Procedures: 05/12/2018: Left IJ central line placement Assessment and Plan - Disease Oriented Problem List (1) Hypertension (2) Internal carotid artery stenosis (3) Acute CVA (cerebrovascular accident) (4) BPH (benign prostatic hyperplasia) - Symptom Scale (1) Pain 0-10 Scale: Unable to quantify (2) Debility, unspecified 0-10 Scale: Unable to quantify (3) Confusion 0-10 Scale: Unable to quantify Pertinent Non-Medical Issues: Psychosocial: Patient is originally from [place]. He served in the [employer] during the [place] [employer]. He has been to his (Haydee) for approximately 61 years. 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 After retiring, they moved to [place] and the patient worked part-time with his son at [employer]. Together they have 2 sons (Noah and Néstor) who both live locally. Patient and his were living their with son, Roland , until the patient's initial stroke in April, Spiritual: Buddhist Legal: Family believes the patient may have completed written advanced directives and will bring copies of these documents if they are found. Per [place] statutes, in the absence of written advanced directives healthcare proxy decision making falls to the patient's . Family is making decisions together at this time. Ethical issues impacting care: No known ethical issues impacting care at this time. Important Contacts: Haydee Barber, : [phone] Noah Barber, son: [phone] Néstor Barber, son: [phone] Prognosis: Patient is an 83-year-old male status post CVA x2. Patient's initial stroke was approximately 3 weeks ago in April, with subsequent right-sided deficits , dysarthria and intermittent confusion. He was discharged to a SNF for rehab but returned to the ED on 05/11/2018 with new symptoms. Patient is at risk for further decline secondary his advanced age and recurrent CVAs with residual deficits. Code Status: No Code DNR Plan: * NO CODE/DNR * Decision-making: Family believes the patient may have completed written advanced directives and will bring copies of these documents if they are found. Per [place] statutes, in the absence of written advanced directives healthcare proxy decision making falls to the patient's . Family is making decisions together at this time. * Spoke with patient's son at bedside, medical update provided. Answers questions to the best my ability. * Patient's and 2 sons state the patient would not want cardiopulmonary resuscitation in the event that his condition deteriorated. Patient agrees with his family stating he would not want CPR. However, his insight/judgement related to his medical conditions is limited; I would not recommend allowing the patient to make medical decisions on his own at this time. CODE STATUS changed to NO CODE/DNR. Goals aggressive up to the point of cardiopulmonary resuscitation * Symptom management-pain: Patient showing no signs or symptoms of pain on exam. 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 Continue to monitor. * Symptom management-debility: Patient was independent, healthy and active prior to his initial stroke in April,. He was discharged to an SNF with residual right-sided weakness, dysarthria and intermittent confusion. Functional status was slowly improving with rehab until 05/11/2018 when the patient developed new/additional deficits. Physical therapy following, recommending rehab at discharge. * Symptom management-confusion: Oriented to self on exam 05/17/2018. Patient has some confusion at baseline. Additional factors could include ICU stay/delirium, electrolyte imbalances, medications, underlying dementia, constipation, urinary retention, infection, hearing deficit, receptive/expressive aphasia. Non-pharmaceutical therapy can include reducing stimuli, reorientation, maintaining adequate nutrition/hydration etc. * Palliative care will continue to follow this patient throughout his hospitalization to build rapport, assist with symptom managment and goal clarification.
[2018-05-17 20:01] LABS: Bilirubin,Urine Negative (Negative); Clarity,Urine Clear (Clear); Color,Urine Yellow (Yellw/Straw); Glucose,Urine (UA) Negative (Negative); Leukocyte Esterase,Urine Negative (Negative); Nitrite,Urine Negative (Negative); Specific Gravity,Urine 1.004 (1.002-1.035)
[2018-05-18 05:02] LABS: INR 3.2 Ratio; Prothrombin Time 31.9 sec (9.8-11.6)
[2018-05-18] MEDS: Heparin Drip 25,000 UNIT/250 ML BAG IV.CONT PRN (07:00)
[2018-05-18 08:56] LABS: Baso % (Auto) 0.2 % (0.0-2.0); Eos # (Auto) 0.2 th/mm3 (0.0-0.4); Eos % (Auto) 2.6 % (0.0-4.0); Hematocrit 29.5 % (39.0-51.0); Hemoglobin 10.3 gm/dL (13.0-17.0); Mean Corpuscular Volume 88.6 fL (80.0-100.0); Mono # (Auto) 0.6 th/mm3 (0.0-0.9); Mono % (Auto) 7.1 % (0.0-8.0); Neut # (Auto) 6.8 th/mm3 (1.8-7.7); Neut % (Auto) 78.1 % (16.0-70.0); Platelet Count 212 th/mm3 (150-450); Red Blood Count 3.33 mil/mm3 (4.50-5.90); Red Cell Distribution Width 15.3 % (11.6-17.2); White Blood Count 8.7 th/mm3 (4.0-11.0)
[2018-05-18 09:16] LABS: Anion Gap 9 meq/L (5-15); Blood Urea Nitrogen 7 mg/dL (7-18); Calcium 8.5 mg/dL (8.5-10.1); Carbon Dioxide 25.5 meq/L (21.0-32.0); Chloride 105 meq/L (98-107); Glomerular Filtration Rate Greater Than 89 mL/min (>89); Glucose,Random 125 mg/dL (74-106); Potassium 3.5 meq/L (3.5-5.1); Sodium 139 meq/L (136-145)
--- NOTE | 2018-05-18 10:40 | P.PNFP ---
Subjective Interval history: There were no acute events overnight. His blood pressures continue to be stable without requiring Midrin. He denies fever, chills nausea, emesis chest pain, palpitations, shortness of breath, and abdominal pain. Full ROS unable to be completed due to mental status. He did have an episode of dark, but not black stools. He is oriented only to person today. <Luis Antonio Ann - 05/18/18 10:40> Results - Labs Result diagrams: 05/18/18 08:34 05/18/18 08:34 <Facundo Thomas - 05/18/18 14:35> Abnormal lab results 05/18/18 05/18/18 05/18/18 Range/Units 04:12 04:12 08:34 RBC 3.33 L (4.50-5.90) mil/mm3 Hgb 10.3 L (13.0-17.0) gm/dL Hct 29.5 L (39.0-51.0) % Neut % (Auto) 78.1 H (16.0-70.0) % PT 31.9 H D (9.8-11.6) sec APTT 68.5 H (23.4-31.7) sec Random Glucose (74-106) mg/dL 05/18/18 Range/Units 08:34 RBC (4.50-5.90) mil/mm3 Hgb (13.0-17.0) gm/dL Hct (39.0-51.0) % Neut % (Auto) (16.0-70.0) % PT (9.8-11.6) sec APTT (23.4-31.7) sec Random Glucose 125 H (74-106) mg/dL Short CBC 05/18/18 Range/Units 08:34 WBC 8.7 (4.0-11.0) th/mm3 Hgb 10.3 L (13.0-17.0) gm/dL Hct 29.5 L (39.0-51.0) % Plt Count 212 (150-450) th/mm3 BMP 05/18/18 08:34 Sodium 139 Potassium 3.5 Chloride 105 Carbon Dioxide 25.5 BUN 7 Creatinine 0.65 Calcium 8.5 D Urine 05/17/18 Range/Units 18:00 Urine Color Yellow (Yellw/Straw) Urine Clarity Clear (Clear) Urine pH 7.0 (5.0-8.5) Ur Specific [place] 1.004 (1.002-1.035) Urine Protein Negative (Neg-Trace) mg/dL Urine Glucose (UA) Negative (Negative) mg/dL <Facundo Thomas - 05/18/18 14:35> Abnormal lab results 05/18/18 05/18/18 05/18/18 Range/Units 04:12 04:12 08:34 RBC 3.33 L (4.50-5.90) mil/mm3 Hgb 10.3 L (13.0-17.0) gm/dL Hct 29.5 L (39.0-51.0) % Neut % (Auto) 78.1 H (16.0-70.0) % PT 31.9 H D (9.8-11.6) sec APTT 68.5 H (23.4-31.7) sec Random Glucose (74-106) mg/dL 05/18/18 Range/Units 08:34 RBC (4.50-5.90) mil/mm3 Hgb (13.0-17.0) gm/dL Hct (39.0-51.0) % Neut % (Auto) (16.0-70.0) % PT (9.8-11.6) sec APTT (23.4-31.7) sec Random Glucose 125 H (74-106) mg/dL Short CBC 05/18/18 Range/Units 08:34 WBC 8.7 (4.0-11.0) th/mm3 Hgb 10.3 L (13.0-17.0) gm/dL Hct 29.5 L (39.0-51.0) % Plt Count 212 (150-450) th/mm3 BMP 05/18/18 08:34 Sodium 139 Potassium 3.5 Chloride 105 Carbon Dioxide 25.5 BUN 7 Creatinine 0.65 Calcium 8.5 D Urine 05/17/18 Range/Units 18:00 Urine Color Yellow (Yellw/Straw) Urine Clarity Clear (Clear) Urine pH 7.0 (5.0-8.5) Ur Specific [place] 1.004 (1.002-1.035) Urine Protein Negative (Neg-Trace) mg/dL Urine Glucose (UA) Negative (Negative) mg/dL <Luis Antonio Ann J - 05/18/18 10:39> Physical Exam Vital signs: Vital Signs 05/17/18 14:45 05/17/18 15:00 05/17/18 15:01 Temperature Pulse Rate 74 90 89 Respiratory Rate Blood Pressure 119/63 Pulse Oximetry 97 96 96 05/17/18 15:15 05/17/18 15:30 05/17/18 15:45 Temperature Pulse Rate 85 66 63 Respiratory Rate Blood Pressure Pulse Oximetry 96 97 99 05/17/18 16:00 05/17/18 16:01 05/17/18 16:15 Temperature Pulse Rate 76 83 62 Respiratory Rate 16 Blood Pressure 131/80 Pulse Oximetry 99 98 98 05/17/18 16:30 05/17/18 16:45 05/17/18 17:00 Temperature Pulse Rate 66 50 L 51 L Respiratory Rate 16 15 Blood Pressure Pulse Oximetry 98 97 98 05/17/18 17:01 05/17/18 17:15 05/17/18 17:30 Temperature Pulse Rate 51 L 81 Respiratory Rate 15 17 Blood Pressure 132/70 Pulse Oximetry 97 98 97 05/17/18 17:45 05/17/18 18:00 05/17/18 18:01 Temperature Pulse Rate 86 94 H 77 Respiratory Rate 17 17 17 Blood Pressure 150/83 H Pulse Oximetry 97 97 97 05/17/18 18:15 05/17/18 18:30 05/17/18 18:45 Temperature Pulse Rate 96 H 101 H 81 Respiratory Rate 19 16 16 Blood Pressure Pulse Oximetry 97 97 97 05/17/18 19:00 05/17/18 19:01 05/17/18 19:15 Temperature Pulse Rate 103 H 94 H 75 Respiratory Rate 18 27 H 18 Blood Pressure 133/69 Pulse Oximetry 96 98 97 05/17/18 19:30 05/17/18 19:45 05/17/18 20:00 Temperature 99.0 F Pulse Rate 97 H 67 89 Respiratory Rate 17 15 16 Blood Pressure 129/74 Pulse Oximetry 98 97 96 05/17/18 20:01 05/17/18 20:15 05/17/18 20:30 Temperature Pulse Rate 71 93 H 95 H Respiratory Rate 16 17 17 Blood Pressure 124/73 Pulse Oximetry 99 97 97 05/17/18 20:45 05/17/18 21:00 12/11/18 21:01 Temperature Pulse Rate 99 H 88 89 Respiratory Rate 29 H 15 15 Blood Pressure 129/74 Pulse Oximetry 98 97 97 05/17/18 21:15 05/17/18 21:30 05/17/18 21:45 Temperature Pulse Rate 95 H 86 82 Respiratory Rate 19 14 14 Blood Pressure Pulse Oximetry 97 96 99 05/17/18 22:00 05/17/18 22:01 05/17/18 22:15 Temperature Pulse Rate 82 83 83 Respiratory Rate 15 13 13 Blood Pressure 129/64 Pulse Oximetry 82 L 99 98 05/17/18 22:30 05/17/18 22:45 05/17/18 23:00 Temperature Pulse Rate 98 H 86 85 Respiratory Rate 20 14 14 Blood Pressure Pulse Oximetry 98 97 97 05/17/18 23:01 05/17/18 23:15 05/17/18 23:30 Temperature Pulse Rate 85 84 80 Respiratory Rate 14 13 13 Blood Pressure 133/68 Pulse Oximetry 97 97 98 05/17/18 23:45 05/18/18 00:00 05/18/18 00:01 Temperature 98.7 F Pulse Rate 104 H 88 87 Respiratory Rate 17 14 18 Blood Pressure 132/67 132/67 Pulse Oximetry 99 98 98 05/18/18 00:15 05/18/18 00:30 05/18/18 00:45 Temperature Pulse Rate 83 95 H 90 Respiratory Rate 13 19 14 Blood Pressure Pulse Oximetry 98 99 97 05/18/18 01:00 05/18/18 01:01 05/18/18 01:15 Temperature Pulse Rate 87 87 82 Respiratory Rate 14 19 13 Blood Pressure 135/75 Pulse Oximetry 97 96 98 05/18/18 01:30 05/18/18 01:45 05/18/18 02:00 Temperature Pulse Rate 93 H 84 79 Respiratory Rate 19 12 15 Blood Pressure Pulse Oximetry 100 98 99 05/18/18 02:01 05/18/18 02:15 05/18/18 02:30 Temperature Pulse Rate 80 106 H 96 H Respiratory Rate 16 33 H 13 Blood Pressure 128/82 Pulse Oximetry 99 99 98 05/18/18 02:45 05/18/18 03:00 05/18/18 03:01 Temperature Pulse Rate 96 H 96 H 95 H Respiratory Rate 22 16 17 Blood Pressure 129/77 Pulse Oximetry 97 97 98 05/18/18 03:15 05/18/18 03:30 05/18/18 03:45 Temperature Pulse Rate 97 H 95 H 85 Respiratory Rate 20 17 13 Blood Pressure Pulse Oximetry 97 97 96 05/18/18 04:00 05/18/18 04:01 05/18/18 04:15 Temperature 98.9 F Pulse Rate 86 86 90 Respiratory Rate 13 13 16 Blood Pressure 132/78 132/78 Pulse Oximetry 97 96 96 05/18/18 04:30 05/18/18 06:01 05/18/18 06:15 Temperature Pulse Rate 87 80 101 H Respiratory Rate 14 16 16 Blood Pressure Pulse Oximetry 97 98 97 05/18/18 06:30 05/18/18 06:45 05/18/18 07:00 Temperature Pulse Rate 87 84 87 Respiratory Rate 14 15 14 Blood Pressure Pulse Oximetry 96 96 98 05/18/18 07:01 05/18/18 07:15 05/18/18 07:30 Temperature Pulse Rate 90 83 85 Respiratory Rate 16 14 15 Blood Pressure 146/73 H Pulse Oximetry 94 L 97 99 05/18/18 07:45 05/18/18 08:00 05/18/18 08:01 Temperature Pulse Rate 96 H 94 H 92 H Respiratory Rate 20 16 16 Blood Pressure 137/75 Pulse Oximetry 98 96 96 05/18/18 08:15 05/18/18 08:30 05/18/18 08:45 Temperature Pulse Rate 90 93 H 92 H Respiratory Rate 17 17 16 Blood Pressure Pulse Oximetry 97 96 96 05/18/18 09:00 05/18/18 09:01 05/18/18 09:15 Temperature Pulse Rate 92 H 102 H Respiratory Rate 17 22 Blood Pressure 145/75 H Pulse Oximetry 97 97 91 L 05/18/18 09:30 05/18/18 09:45 05/18/18 10:00 Temperature Pulse Rate 92 H 94 H 90 Respiratory Rate 15 25 H 18 Blood Pressure Pulse Oximetry 98 100 98 05/18/18 10:01 05/18/18 10:15 05/18/18 10:30 Temperature Pulse Rate 91 H 99 H 100 H Respiratory Rate 18 22 20 Blood Pressure 144/82 H Pulse Oximetry 97 99 98 05/18/18 10:45 05/18/18 11:00 05/18/18 11:01 Temperature Pulse Rate 94 H 95 H 95 H Respiratory Rate 15 19 16 Blood Pressure 143/69 H Pulse Oximetry 97 98 98 05/18/18 11:15 05/18/18 11:30 05/18/18 11:45 Temperature Pulse Rate 98 H 92 H 92 H Respiratory Rate 18 22 17 Blood Pressure Pulse Oximetry 99 98 98 05/18/18 12:00 05/18/18 12:01 05/18/18 12:15 Temperature Pulse Rate 91 H 90 95 H Respiratory Rate 16 16 19 Blood Pressure 134/67 Pulse Oximetry 98 98 98 05/18/18 12:30 05/18/18 12:45 05/18/18 13:00 Temperature Pulse Rate 92 H 90 85 Respiratory Rate 15 15 13 Blood Pressure Pulse Oximetry 98 98 96 05/18/18 13:01 05/18/18 13:15 05/18/18 13:30 Temperature Pulse Rate 83 82 99 H Respiratory Rate 14 15 19 Blood Pressure 124/67 Pulse Oximetry 98 97 99 05/18/18 13:45 05/18/18 14:00 05/18/18 14:01 Temperature Pulse Rate 95 H 95 H 96 H Respiratory Rate 20 15 18 Blood Pressure 137/78 Pulse Oximetry 98 97 98 05/18/18 14:15 Temperature Pulse Rate 100 H Respiratory Rate 17 Blood Pressure Pulse Oximetry 98 Intake & Output 05/17/18 05/18/18 05/18/18 18:59 06:59 18:59 Intake Total 1830 / 1830 120 / 120 250 / 250 Output Total 1700 / 1700 0 / 0 Balance 130 / 130 120 / 120 250 / 250 Weight 76.4 kg Intake: IV 1300 / 1300 250 / 250 Heparin/D5W 25,000 U/250 mL 25, 250 / 250 000 unit In 250 ml @ Per Protocol IV.CONT TITRATE PRN Rx #:[id number] NS Inj 1,000 ML @ 100 mls/hr IV 1300 / 1300 .CONT .Q10H DIONISIO Rx#:[id number] Oral 480 / 480 120 / 120 Anesthesia Amount 50 / 50 Output: Urine 250 / 250 Stool 0 / 0 Urine Amount (Catheter) 1450 / 1450 Condom 1450 / 1450 Other: # Voids 2 # Incontinent Voids 2 # Urine Diapers 1 Date of Last Bowel Movement 05/12/18 05/12/18 05/12/18 # Bowel Movements 0 # Incontinent Bowel Movements 1 <Facundo Thomas - 05/18/18 14:35> Vital Signs 05/17/18 10:30 05/17/18 10:45 05/17/18 10:55 Temperature Pulse Rate 93 H 88 103 H Respiratory Rate Blood Pressure 130/66 116/61 116/74 Pulse Oximetry 97 98 98 05/17/18 11:00 05/17/18 11:15 05/17/18 11:30 Temperature 98 F Pulse Rate 104 H 113 H 98 H Respiratory Rate Blood Pressure 136/77 Pulse Oximetry 99 98 98 05/17/18 11:45 05/17/18 12:00 05/17/18 12:01 Temperature 98.7 F Pulse Rate 91 H 95 H 96 H Respiratory Rate 16 Blood Pressure 133/76 Pulse Oximetry 96 97 97 05/17/18 12:15 05/17/18 12:30 05/17/18 12:45 Temperature Pulse Rate 96 H 88 88 Respiratory Rate Blood Pressure Pulse Oximetry 98 97 97 05/17/18 13:00 05/17/18 13:01 05/17/18 13:15 Temperature Pulse Rate 83 83 91 H Respiratory Rate Blood Pressure 146/72 H Pulse Oximetry 97 98 05/17/18 13:30 05/17/18 13:45 05/17/18 14:00 Temperature Pulse Rate 92 H 102 H 105 H Respiratory Rate Blood Pressure Pulse Oximetry 98 97 97 05/17/18 14:01 05/17/18 14:15 05/17/18 14:30 Temperature Pulse Rate 103 H 98 H 95 H Respiratory Rate Blood Pressure 142/72 H Pulse Oximetry 96 97 97 05/17/18 14:45 05/17/18 15:00 05/17/18 15:01 Temperature Pulse Rate 74 90 89 Respiratory Rate Blood Pressure 119/63 Pulse Oximetry 97 96 96 05/17/18 15:15 05/17/18 15:30 05/17/18 15:45 Temperature Pulse Rate 85 66 63 Respiratory Rate Blood Pressure Pulse Oximetry 96 97 99 05/17/18 16:00 05/17/18 16:01 05/17/18 16:15 Temperature Pulse Rate 76 83 62 Respiratory Rate 16 Blood Pressure 131/80 Pulse Oximetry 99 98 98 05/17/18 16:30 05/17/18 16:45 05/17/18 17:00 Temperature Pulse Rate 66 50 L 51 L Respiratory Rate 16 15 Blood Pressure Pulse Oximetry 98 97 98 05/17/18 17:01 05/17/18 17:15 05/17/18 17:30 Temperature Pulse Rate 51 L 81 Respiratory Rate 15 17 Blood Pressure 132/70 Pulse Oximetry 97 98 97 05/17/18 17:45 05/17/18 18:00 05/17/18 18:01 Temperature Pulse Rate 86 94 H 77 Respiratory Rate 17 17 17 Blood Pressure 150/83 H Pulse Oximetry 97 97 97 05/17/18 18:15 05/17/18 18:30 05/17/18 18:45 Temperature Pulse Rate 96 H 101 H 81 Respiratory Rate 19 16 16 Blood Pressure Pulse Oximetry 97 97 97 05/17/18 19:00 05/17/18 19:01 05/17/18 19:15 Temperature Pulse Rate 103 H 94 H 75 Respiratory Rate 18 27 H 18 Blood Pressure 133/69 Pulse Oximetry 96 98 97 05/17/18 19:30 05/17/18 19:45 05/17/18 20:00 Temperature 99.0 F Pulse Rate 97 H 67 89 Respiratory Rate 17 15 16 Blood Pressure 129/74 Pulse Oximetry 98 97 96 05/17/18 20:01 05/17/18 20:15 05/17/18 20:30 Temperature Pulse Rate 71 93 H 95 H Respiratory Rate 16 17 17 Blood Pressure 124/73 Pulse Oximetry 99 97 97 05/17/18 20:45 05/17/18 21:00 05/17/18 21:01 Temperature Pulse Rate 99 H 88 89 Respiratory Rate 29 H 15 15 Blood Pressure 129/74 Pulse Oximetry 98 97 97 05/17/18 21:15 05/17/18 21:30 05/17/18 21:45 Temperature Pulse Rate 95 H 86 82 Respiratory Rate 19 14 14 Blood Pressure Pulse Oximetry 97 96 99 05/17/18 22:00 05/17/18 22:01 05/17/18 22:15 Temperature Pulse Rate 82 83 83 Respiratory Rate 15 13 13 Blood Pressure 129/64 Pulse Oximetry 82 L 99 98 05/17/18 22:30 05/17/18 22:45 05/17/18 23:00 Temperature Pulse Rate 98 H 86 85 Respiratory Rate 20 14 14 Blood Pressure Pulse Oximetry 98 97 97 05/17/18 23:01 05/17/18 23:15 05/17/18 23:30 Temperature Pulse Rate 85 84 80 Respiratory Rate 14 13 13 Blood Pressure 133/68 Pulse Oximetry 97 97 98 05/17/18 23:45 05/18/18 00:00 05/18/18 00:01 Temperature 98.7 F Pulse Rate 104 H 88 87 Respiratory Rate 17 14 18 Blood Pressure 132/67 132/67 Pulse Oximetry 99 98 98 05/18/18 00:15 05/18/18 00:30 05/18/18 00:45 Temperature Pulse Rate 83 95 H 90 Respiratory Rate 13 19 14 Blood Pressure Pulse Oximetry 98 99 97 05/18/18 01:00 05/18/18 01:01 05/18/18 01:15 Temperature Pulse Rate 87 87 82 Respiratory Rate 14 19 13 Blood Pressure 135/75 Pulse Oximetry 97 96 98 05/18/18 01:30 05/18/18 01:45 05/18/18 02:00 Temperature Pulse Rate 93 H 84 79 Respiratory Rate 19 12 15 Blood Pressure Pulse Oximetry 100 98 99 05/18/18 02:01 05/18/18 02:15 05/18/18 02:30 Temperature Pulse Rate 80 106 H 96 H Respiratory Rate 16 33 H 13 Blood Pressure 128/82 Pulse Oximetry 99 99 98 05/18/18 02:45 05/18/18 03:00 05/18/18 03:01 Temperature Pulse Rate 96 H 96 H 95 H Respiratory Rate 22 16 17 Blood Pressure 129/77 Pulse Oximetry 97 97 98 05/18/18 03:15 05/18/18 03:30 05/18/18 03:45 Temperature Pulse Rate 97 H 95 H 85 Respiratory Rate 20 17 13 Blood Pressure Pulse Oximetry 97 97 96 05/18/18 04:00 05/18/18 04:01 05/18/18 04:15 Temperature 98.9 F Pulse Rate 86 86 90 Respiratory Rate 13 13 16 Blood Pressure 132/78 132/78 Pulse Oximetry 97 96 96 05/18/18 04:30 Temperature Pulse Rate 87 Respiratory Rate 14 Blood Pressure Pulse Oximetry 97 Intake & Output 05/17/18 05/18/18 05/18/18 18:59 06:59 18:59 Intake Total 1830 / 1830 120 / 120 250 / 250 Output Total 1700 / 1700 0 / 0 Balance 130 / 130 120 / 120 250 / 250 Weight 76.4 kg Intake: IV 1300 / 1300 250 / 250 Heparin/D5W 25,000 U/250 mL 25, 250 / 250 000 unit In 250 ml @ Per Protocol IV.CONT TITRATE PRN Rx #:[id number] NS Inj 1,000 ML @ 100 mls/hr IV 1300 / 1300 .CONT .Q10H DIONISIO Rx#:[id number] Oral 480 / 480 120 / 120 Anesthesia Amount 50 / 50 Output: Urine 250 / 250 Stool 0 / 0 Urine Amount (Catheter) 1450 / 1450 Condom 1450 / 1450 Other: # Voids 2 # Incontinent Voids 2 # Urine Diapers 1 Date of Last Bowel Movement 05/12/18 05/12/18 # Bowel Movements 0 # Incontinent Bowel Movements 1 <Luis Antonio Ann - 05/18/18 10:39> Narrative: General: Well-developed, alert, and in no acute distress. Appears stated age. HEENT: Atraumatic, moist mucous membranes Neck: Supple, trachea midline Cardiac: Regular rate and rhythm without murmur Pulmonary: Non-labored breathing. Lungs clear to auscultation bilaterally with good air movement Abdomen: Normal bowel sounds, soft and non-tender without rebound or guarding Extremities: No edema, 2+ pedal pulses, capillary refill less than 2 seconds Neurologic: Oriented only to person today. Stable dysarthria and expressive and receptive aphasia. Pronator drift on the right side, stable. 5 out of 5 strength in the left upper and lower extremities. 4 out of 5 strength in the right upper and lower extremities. Facial muscle asymmetry noted with smiling. His confusion does wax and wane. <Luis Antonio Ann - 05/18/18 10:39> - Urinary Catheter Management Condom Cath placed during this visit: no <Facundo Thomas - 05/18/18 14:35> no <Luis Antonio Ann - 05/18/18 10:40> Reason for continuing: Hourly intake/output <Luis Antonio Ann - 05/18/18 10:39> Assessment and Plan - Assessment (1) Acute CVA (cerebrovascular accident) Code(s): I63.9 - Cerebral infarction, unspecified Status: Acute (2) Confusion Code(s): R41.0 - Disorientation, unspecified Status: Acute (3) Hypertension Code(s): I10 - Essential (primary) hypertension Status: Acute (4) Internal carotid artery stenosis Code(s): I65.29 - Occlusion and stenosis of unspecified carotid artery Status : Acute (5) Dysarthria Code(s): R47.1 - Dysarthria and anarthria Status: Acute (6) Heme positive stool Code(s): R19.5 - Other fecal abnormalities Status: Acute <Facundo Thomas - 05/18/18 14:35> (1) Acute CVA (cerebrovascular accident) Code(s): I63.9 - Cerebral infarction, unspecified Status: Acute (2) Confusion Code(s): R41.0 - Disorientation, unspecified Status: Acute (3) Hypertension Code(s): I10 - Essential (primary) hypertension Status: Acute (4) Internal carotid artery stenosis Code(s): I65.29 - Occlusion and stenosis of unspecified carotid artery Status : Acute (5) Dysarthria Code(s): R47.1 - Dysarthria and anarthria Status: Acute (6) Heme positive stool Code(s): R19.5 - Other fecal abnormalities Status: Acute <Luis Antonio Ann - 05/18/18 10:40> - Assessment and Plan Patient is an 83-year-old male who presented with acute stroke and had a repeat stroke while hospitalized. He is 3 weeks s/p CVA and right-sided endarterectomy. He has a chronically occluded left carotid. Symptoms at this time include 4 out of 5 strength on the right, right facial droop, significant dysarthria, and significant receptive and expressive aphasia. He also has significant confusion and it is unclear how much of this is secondary to the stroke. Acute stroke: -Neurology is following -Plan for loop recorder placement today -Continuous telemetry -Neurochecks every 4 hours -Continue Lipitor 80 mg p.o. at bedtime -Physical therapy recommends PT at rehab -Speech therapy: Will need continued therapy Anticoagulation -Hold daily aspirin 81 mg -Hold daily Plavix Heparin drip held today for loop recorder placement Transitioning to warfarin, INR 3.2 today Chronic hypertension: -Hold home antihypertensives due to pressure that is borderline for current post stroke goals. He has had well-controlled blood pressures without medication. -Vasotec for SBP greater than 180 or DBP greater than 110 -Stop Midrin to maintain blood pressures, it has not been needed in the past 2 days Confusion: This may be entirely from his CVA, however other causes may contribute especially considering the time course of his symptoms. He does also have some chronic dementia symptoms. Urinalysis to assess for UTI was negative -Family was educated regarding wearing his hearing aids and reorienting him often -His confusion has been waxing and waning throughout the hospitalization, but is overall stable Heme Positive stool: Reported black stools with heme positive. GI consulted and EGD showed some erosive duodenitis. Status post 1 unit PRBC. Hemoglobin has been stable. Had dark stools again today. -GI recommends waiting to do the colonoscopy as an outpatient and has signed off Hemoccult ordered Fluids: Adequate p.o. intake Electrolytes: monitor and replete as needed Nutrition: Mechanical soft diet with nectar thick liquids per speech therapy GI prophylaxis: Not indicated VTE prophylaxis: Transitioning to warfarin, heparin currently held CODE STATUS: He is a DO NOT RESUSCITATE CODE STATUS after discussion with the family. Goals of care remain otherwise aggressive Disposition: Will need extensive rehab after discharge. Anticipate discharge to SNF soon after loop recorder placement on 05/18 <Luis Antonio Ann - 05/18/18 10:39> - Attending Attestation See the residents documentation for details. I saw and evaluated the patient regarding the jenkins portions of this evaluation and agree with the residents findings and plans as written. Parts of this note were created using [employer] voice recognition software program. While efforts were made to correct any mistakes made by this software, some mistakes, errors, and omissions may remain in the final note that were not caught when the note was originally created. Plan of care was discussed and agreed upon with the patient as specifically documented in the above note. An opportunity to ask questions with explanation was provided. Patient voiced understanding on all information reviewed and discussed. <Facundo Thoams - 05/18/18 14:35>
[2018-05-18] MEDS: Gentamicin 0.3% Opth Drops 5 ML Bottle EACH EYE SCH ×3 (10:50→17:52)
[2018-05-18] MEDS: Senna/Docusate Sodium 8.6/50 MG Tablet PO SCH ×2 (10:52→20:37)
[2018-05-18] MEDS: Pantoprazole Inj 40 MG Vial IV.PUSH SCH ×2 (10:52→22:58)
--- NOTE | 2018-05-18 11:15 | P.PNNEU ---
Subjective Active Medications: Active Medications Al Hydroxide/Mg Hydroxide (Milk Of Hernando [place]ett) 30 ml PO Q12H PRN PRN Reason: Mild Constipation Aspirin (Aspirin Chew) 81 mg PO DAILY [facility] Last Admin: 05/12/18 10:10 Dose: Not Given Atorvastatin Calcium (Lipitor) 80 mg PO DAILY [facility] Last Admin: 05/18/18 10:51 Dose: 80 mg Bisacodyl (Dulcolax Supp) 10 mg RECTAL DAILY PRN PRN Reason: SEVERE CONSITIPATION Enalaprilat (Vasotec Inj) 1.25 mg IV.PUSH Q6H PRN PRN Reason: SEE DOSE INSTRUCTIONS Gentamicin Sulfate (Gentamicin 0.3% Opth Drops) 1 drop EACH EYE TID [facility] Last Admin: 05/18/18 10:50 Dose: 1 drop Magnesium Sulfate 4 gm/ Sodium (Chloride) 100 mls @ 50 mls/hr IV.SIG UNSCH PRN PRN Reason: For Magnesium 0.9 - 1.1 mg/dL Magnesium Sulfate 2 gm/ Sodium (Chloride) 100 mls @ 50 mls/hr IV.SIG UNSCH PRN PRN Reason: For Magnesium 1.2 - 1.6 mg/dL Potassium Chloride (Kcl 40 Meq Premix Inj) 40 meq in 100 mls @ 25 mls/hr IV.SIG Q2H PRN PRN Reason: For Potassium 2.8 - 3.2 mEq/L Potassium Chloride (Kcl 20 Meq Premix Inj) 20 meq in 100 mls @ 50 mls/hr IV.SIG Q2H PRN PRN Reason: For Potassium 3.3 - 3.5 mEq/L Potassium Chloride (Kcl 40 Meq Premix Inj) 40 meq in 100 mls @ 25 mls/hr IV.SIG UNSCH PRN PRN Reason: For Potassium 3.3 - 3.5 mEq/L Last Infusion: 05/16/18 16:16 Dose: Infused Potassium Chloride (Kcl 20 Meq Premix Inj) 20 meq in 100 mls @ 50 mls/hr IV.SIG Q2H PRN PRN Reason: For Potassium 2.8 - 3.2 mEq/L Potassium Phosphate 30 mmol/ (Sodium Chloride) 260 mls @ 42 mls/hr IV.SIG UNSCH PRN PRN Reason: SEE LABEL COMMENTS Sodium Phosphate 30 mmol/ (Sodium Chloride) 260 mls @ 42 mls/hr IV.SIG UNSCH PRN PRN Reason: For Phosphorus < 2.5 mg/dL Magnesium Oxide (Mag-Ox) 800 mg PO UNSCH PRN PRN Reason: For Magnesium 1.2 - 1.6 mg/dL Pantoprazole Sodium (Protonix Inj) 40 mg IV.PUSH Q12H [facility] Last Admin: 05/18/18 10:52 Dose: 40 mg Pharmacy Profile Note (Coumadin Consult Pharmacy) 1 each OTHER UNSCH PRN PRN Reason: PHARMACY DOCUMENTATION Potassium Bicarb/Potassium Chloride (K-Lyte Cl Eff) 50 meq PO UNSCH PRN PRN Reason: For Potassium 3.3 - 3.5 mEq/L Last Admin: 05/16/18 16:16 Dose: 50 meq Potassium Phosphate (K-Phos Original) 2,000 mg PO Q4H PRN PRN Reason: Phosphorus Less Than 2.5 mg/dL Potassium Phosphate (K-Phos Original) 2,000 mg PO UNSCH PRN PRN Reason: SEE LABEL COMMENTS Senna/Docusate Sodium (Ria-Colace) 1 tab PO BID [facility] Last Admin: 05/18/18 10:52 Dose: 1 tab Sennosides (Senokot) 17.2 mg PO Q12H PRN PRN Reason: Moderate Constipation Sodium Chloride (Ns Flush) 2 ml IV.FLUSH BID [facility] Last Admin: 05/18/18 10:51 Dose: 2 ml Sodium Chloride (Ns Flush) 2 ml IV.FLUSH PRN PRN PRN Reason: FLUSH AFTER USING IV ACCESS Sodium Chloride (Ns Flush) 0 ml IV.FLUSH DAILY [facility] Last Admin: 05/18/18 10:51 Dose: 8 ml Tamsulosin HCl (Flomax) 0.4 mg PO DAILY [facility] Last Admin: 05/18/18 10:51 Dose: 0.4 mg Terbutaline Sulfate (Brethine Inj) 1 mg SQ UNSCH PRN PRN Reason: For Extravasation Warfarin Sodium (Coumadin) 5 mg PO DAILY@1600 [facility] Last Admin: 05/17/18 16:20 Dose: 5 mg Allergies/Adverse Reactions: Allergies Allergy/AdvReac Type Severity Reaction Status Date / Time No Known Allergies Allergy Verified 04/17/18 12:44 Physical Exam Vital signs: Vital Signs 05/17/18 11:15 05/17/18 11:30 05/17/18 11:45 Temperature Pulse Rate 113 H 98 H 91 H Respiratory Rate Blood Pressure Pulse Oximetry 98 98 96 05/17/18 12:00 05/17/18 12:01 05/17/18 12:15 Temperature 98.7 F Pulse Rate 95 H 96 H 96 H Respiratory Rate 16 Blood Pressure 133/76 Pulse Oximetry 97 97 98 05/17/18 12:30 05/17/18 12:45 05/17/18 13:00 Temperature Pulse Rate 88 88 83 Respiratory Rate Blood Pressure Pulse Oximetry 97 97 97 05/17/18 13:01 05/17/18 13:15 05/17/18 13:30 Temperature Pulse Rate 83 91 H 92 H Respiratory Rate Blood Pressure 146/72 H Pulse Oximetry 98 98 05/17/18 13:45 05/17/18 14:00 05/17/18 14:01 Temperature Pulse Rate 102 H 105 H 103 H Respiratory Rate Blood Pressure 142/72 H Pulse Oximetry 97 97 96 05/17/18 14:15 05/17/18 14:30 05/17/18 14:45 Temperature Pulse Rate 98 H 95 H 74 Respiratory Rate Blood Pressure Pulse Oximetry 97 97 97 05/17/18 15:00 05/17/18 15:01 05/17/18 15:15 Temperature Pulse Rate 90 89 85 Respiratory Rate Blood Pressure 119/63 Pulse Oximetry 96 96 96 05/17/18 15:30 05/17/18 15:45 05/17/18 16:00 Temperature Pulse Rate 66 63 76 Respiratory Rate 16 Blood Pressure Pulse Oximetry 97 99 99 05/17/18 16:01 05/17/18 16:15 05/17/18 16:30 Temperature Pulse Rate 83 62 66 Respiratory Rate Blood Pressure 131/80 Pulse Oximetry 98 98 98 05/17/18 16:45 05/17/18 17:00 05/17/18 17:01 Temperature Pulse Rate 50 L 51 L 51 L Respiratory Rate 16 15 15 Blood Pressure 132/70 Pulse Oximetry 97 98 97 05/17/18 17:15 05/17/18 17:30 05/17/18 17:45 Temperature Pulse Rate 81 86 Respiratory Rate 17 17 Blood Pressure Pulse Oximetry 98 97 97 05/17/18 18:00 05/17/18 18:01 05/17/18 18:15 Temperature Pulse Rate 94 H 77 96 H Respiratory Rate 17 17 19 Blood Pressure 150/83 H Pulse Oximetry 97 97 97 05/17/18 18:30 05/17/18 18:45 05/17/18 19:00 Temperature Pulse Rate 101 H 81 103 H Respiratory Rate 16 16 18 Blood Pressure Pulse Oximetry 97 97 96 05/17/18 19:01 05/17/18 19:15 05/17/18 19:30 Temperature Pulse Rate 94 H 75 97 H Respiratory Rate 27 H 18 17 Blood Pressure 133/69 Pulse Oximetry 98 97 98 05/17/18 19:45 05/17/18 20:00 05/17/18 20:01 Temperature 99.0 F Pulse Rate 67 89 71 Respiratory Rate 15 16 16 Blood Pressure 129/74 124/73 Pulse Oximetry 97 96 99 05/17/18 20:15 05/17/18 20:30 05/17/18 20:45 Temperature Pulse Rate 93 H 95 H 99 H Respiratory Rate 17 17 29 H Blood Pressure Pulse Oximetry 97 97 98 05/17/18 21:00 05/17/18 21:01 05/17/18 21:15 Temperature Pulse Rate 88 89 95 H Respiratory Rate 15 15 19 Blood Pressure 129/74 Pulse Oximetry 97 97 97 05/17/18 21:30 05/17/18 21:45 05/17/18 22:00 Temperature Pulse Rate 86 82 82 Respiratory Rate 14 14 15 Blood Pressure Pulse Oximetry 96 99 82 L 05/17/18 22:01 05/17/18 22:15 05/17/18 22:30 Temperature Pulse Rate 83 83 98 H Respiratory Rate 13 13 20 Blood Pressure 129/64 Pulse Oximetry 99 98 98 05/17/18 22:45 05/17/18 23:00 05/17/18 23:01 Temperature Pulse Rate 86 85 85 Respiratory Rate 14 14 14 Blood Pressure 133/68 Pulse Oximetry 97 97 97 05/17/18 23:15 05/17/18 23:30 05/17/18 23:45 Temperature Pulse Rate 84 80 104 H Respiratory Rate 13 13 17 Blood Pressure Pulse Oximetry 97 98 99 05/18/18 00:00 05/18/18 00:01 05/18/18 00:15 Temperature 98.7 F Pulse Rate 88 87 83 Respiratory Rate 14 18 13 Blood Pressure 132/67 132/67 Pulse Oximetry 98 98 98 05/18/18 00:30 05/18/18 00:45 05/18/18 01:00 Temperature Pulse Rate 95 H 90 87 Respiratory Rate 19 14 14 Blood Pressure Pulse Oximetry 99 97 97 05/18/18 01:01 05/18/18 01:15 05/18/18 01:30 Temperature Pulse Rate 87 82 93 H Respiratory Rate 19 13 19 Blood Pressure 135/75 Pulse Oximetry 96 98 100 05/18/18 01:45 05/18/18 02:00 05/18/18 02:01 Temperature Pulse Rate 84 79 80 Respiratory Rate 12 15 16 Blood Pressure 128/82 Pulse Oximetry 98 99 99 05/18/18 02:15 05/18/18 02:30 05/18/18 02:45 Temperature Pulse Rate 106 H 96 H 96 H Respiratory Rate 33 H 13 22 Blood Pressure Pulse Oximetry 99 98 97 05/18/18 03:00 05/18/18 03:01 05/18/18 03:15 Temperature Pulse Rate 96 H 95 H 97 H Respiratory Rate 16 17 20 Blood Pressure 129/77 Pulse Oximetry 97 98 97 05/18/18 03:30 05/18/18 03:45 05/18/18 04:00 Temperature 98.9 F Pulse Rate 95 H 85 86 Respiratory Rate 17 13 13 Blood Pressure 132/78 Pulse Oximetry 97 96 97 05/18/18 04:01 05/18/18 04:15 05/18/18 04:30 Temperature Pulse Rate 86 90 87 Respiratory Rate 13 16 14 Blood Pressure 132/78 Pulse Oximetry 96 96 97 Intake & Output 05/17/18 05/18/18 05/18/18 18:59 06:59 18:59 Intake Total 1830 / 1830 120 / 120 250 / 250 Output Total 1700 / 1700 0 / 0 Balance 130 / 130 120 / 120 250 / 250 Weight 76.4 kg Intake: IV 1300 / 1300 250 / 250 Heparin/D5W 25,000 U/250 mL 25, 250 / 250 000 unit In 250 ml @ Per Protocol IV.CONT TITRATE PRN Rx #:[id number] NS Inj 1,000 ML @ 100 mls/hr IV 1300 / 1300 .CONT .Q10H [facility] Rx#:[id number] Oral 480 / 480 120 / 120 Anesthesia Amount 50 / 50 Output: Urine 250 / 250 Stool 0 / 0 Urine Amount (Catheter) 1450 / 1450 Condom 1450 / 1450 Other: # Voids 2 # Incontinent Voids 2 # Urine Diapers 1 Date of Last Bowel Movement 05/12/18 05/12/18 # Bowel Movements 0 # Incontinent Bowel Movements 1 Narrative: aphasic moving r well similar to prior alert awake - Urinary Catheter Management Condom Cath placed during this visit: no Reason for continuing: Hourly intake/output Objective Laboratory Results - last 24 hr 05/17/18 05/18/18 05/18/18 18:00 04:12 04:12 WBC RBC Hgb Hct MCV MCH MCHC RDW Plt Count MPV Neut % (Auto) Lymph % (Auto) [place] % (Auto) Eos % (Auto) Baso % (Auto) Neut # (Auto) Lymph # (Auto) [place] # (Auto) Eos # (Auto) Baso # (Auto) WBC Differential Differential Comment PT 31.9 H D INR 3.2 APTT 68.5 H Sodium Potassium Chloride Carbon Dioxide Anion Gap BUN Creatinine Estimated GFR Random Glucose Calcium Urine Color Yellow Urine Clarity Clear Urine pH 7.0 Ur Specific [place] 1.004 Urine Protein Negative Urine Glucose (UA) Negative Urine Ketones Negative Urine Occult Blood Negative Urine Nitrate Negative Urine Bilirubin Negative Urine Urobilinogen 1.0 Ur Leukocyte Esterase Negative Urine RBC Less than 1 Micro UA Comment Culture not ind Ur Microscopic Review Not Reportable Urine Culture Comments Culture not ind 05/18/18 05/18/18 08:34 08:34 WBC 8.7 RBC 3.33 L Hgb 10.3 L Hct 29.5 L MCV 88.6 MCH 31.0 MCHC 35.0 RDW 15.3 Plt Count 212 MPV 7.0 Neut % (Auto) 78.1 H Lymph % (Auto) 12.0 [place] % (Auto) 7.1 Eos % (Auto) 2.6 Baso % (Auto) 0.2 Neut # (Auto) 6.8 Lymph # (Auto) 1.0 [place] # (Auto) 0.6 Eos # (Auto) 0.2 Baso # (Auto) 0.0 WBC Differential . Differential Comment Auto diff final PT INR APTT Sodium 139 Potassium 3.5 Chloride 105 Carbon Dioxide 25.5 Anion Gap 9 BUN 7 Creatinine 0.65 Estimated GFR Greater than 89 Random Glucose 125 H Calcium 8.5 D Urine Color Urine Clarity Urine pH Ur Specific [place] Urine Protein Urine Glucose (UA) Urine Ketones Urine Occult Blood Urine Nitrate Urine Bilirubin Urine Urobilinogen Ur Leukocyte Esterase Urine RBC Micro UA Comment Ur Microscopic Review Urine Culture Comments Review/Management - Review/Management Plan: neurologically stable Dr Serrato to resume care tomorrow 05/16/18 doing a little better apparently egd neg ok by me for colonoscopy as long as bp kept up needed txfusion bp better on midodrine I WOULD LIKE LOOP PLACED BY CARDS oob 05/18/18 stable neuro inr should run lower 2-2.5 wit gi bleed dc asa and heparin loop in today bp better neuro haji ready for rehab if more gib do colonoscopy
--- NOTE | 2018-05-18 12:19 | MP ---
cc: Trent Yoon MD DATE OF OPERATION: 05/18/2018 CARDIAC EVENT RECORDER - INSERTABLE LOOP RECORDER PREOPERATIVE DIAGNOSES: Status post cerebrovascular accident, suspected possible atrial fibrillation . PROCEDURE PERFORMED: Insertion of insertable loop recorder. DESCRIPTION OF PROCEDURE: Informed consent was obtained from the patient's son. Using 1% lidocaine for local anesthesia and the standard insertion kit, a [employer] insertable loop recorder was inserted in the left fourth intercostal space with no difficulty and no complications. There was no blood loss. The device is a [employer] Reveal LINQ . Model: LMQ11. Serial Number: [id number]. Initial R-wave was 0.42 millivolts. MD EMELY Butt/tanner , 12:09 PM , 12:13 PM
[2018-05-18 19:40] LABS: INR 4.4 Ratio
[2018-05-19 06:02] LABS: INR 4.6 Ratio; Prothrombin Time 46.6 sec (9.8-11.6)
--- NOTE | 2018-05-19 08:15 | P.PNNEU ---
Subjective Active Medications: Active Medications Al Hydroxide/Mg Hydroxide (Milk Of Hernando Liq) 30 ml PO Q12H PRN PRN Reason: Mild Constipation Atorvastatin Calcium (Lipitor) 80 mg PO DAILY [facility] Last Admin: 05/18/18 10:51 Dose: 80 mg Bisacodyl (Dulcolax Supp) 10 mg RECTAL DAILY PRN PRN Reason: SEVERE CONSITIPATION Enalaprilat (Vasotec Inj) 1.25 mg IV.PUSH Q6H PRN PRN Reason: SEE DOSE INSTRUCTIONS Gentamicin Sulfate (Gentamicin 0.3% Opth Drops) 1 drop EACH EYE TID [facility] Last Admin: 05/18/18 17:52 Dose: 1 drop Magnesium Sulfate 4 gm/ Sodium (Chloride) 100 mls @ 50 mls/hr IV.SIG UNSCH PRN PRN Reason: For Magnesium 0.9 - 1.1 mg/dL Magnesium Sulfate 2 gm/ Sodium (Chloride) 100 mls @ 50 mls/hr IV.SIG UNSCH PRN PRN Reason: For Magnesium 1.2 - 1.6 mg/dL Potassium Chloride (Kcl 40 Meq Premix Inj) 40 meq in 100 mls @ 25 mls/hr IV.SIG Q2H PRN PRN Reason: For Potassium 2.8 - 3.2 mEq/L Potassium Chloride (Kcl 20 Meq Premix Inj) 20 meq in 100 mls @ 50 mls/hr IV.SIG Q2H PRN PRN Reason: For Potassium 3.3 - 3.5 mEq/L Potassium Chloride (Kcl 40 Meq Premix Inj) 40 meq in 100 mls @ 25 mls/hr IV.SIG UNSCH PRN PRN Reason: For Potassium 3.3 - 3.5 mEq/L Last Infusion: 05/16/18 16:16 Dose: Infused Potassium Chloride (Kcl 20 Meq Premix Inj) 20 meq in 100 mls @ 50 mls/hr IV.SIG Q2H PRN PRN Reason: For Potassium 2.8 - 3.2 mEq/L Potassium Phosphate 30 mmol/ (Sodium Chloride) 260 mls @ 42 mls/hr IV.SIG UNSCH PRN PRN Reason: SEE LABEL COMMENTS Sodium Phosphate 30 mmol/ (Sodium Chloride) 260 mls @ 42 mls/hr IV.SIG UNSCH PRN PRN Reason: For Phosphorus < 2.5 mg/dL Magnesium Oxide (Mag-Ox) 800 mg PO UNSCH PRN PRN Reason: For Magnesium 1.2 - 1.6 mg/dL Pantoprazole Sodium (Protonix Inj) 40 mg IV.PUSH Q12H [facility] Last Admin: 05/18/18 22:58 Dose: 40 mg Pharmacy Profile Note (Coumadin Consult Pharmacy) 1 each OTHER UNSCH PRN PRN Reason: PHARMACY DOCUMENTATION Potassium Bicarb/Potassium Chloride (K-Lyte Cl Eff) 50 meq PO UNSCH PRN PRN Reason: For Potassium 3.3 - 3.5 mEq/L Last Admin: 05/16/18 16:16 Dose: 50 meq Potassium Phosphate (K-Phos Original) 2,000 mg PO Q4H PRN PRN Reason: Phosphorus Less Than 2.5 mg/dL Potassium Phosphate (K-Phos Original) 2,000 mg PO UNSCH PRN PRN Reason: SEE LABEL COMMENTS Senna/Docusate Sodium (Ria-Colace) 1 tab PO BID [facility] Last Admin: 05/18/18 20:37 Dose: 1 tab Sennosides (Senokot) 17.2 mg PO Q12H PRN PRN Reason: Moderate Constipation Sodium Chloride (Ns Flush) 2 ml IV.FLUSH BID [facility] Last Admin: 05/18/18 20:37 Dose: 2 ml Sodium Chloride (Ns Flush) 2 ml IV.FLUSH PRN PRN PRN Reason: FLUSH AFTER USING IV ACCESS Sodium Chloride (Ns Flush) 0 ml IV.FLUSH DAILY [facility] Last Admin: 05/18/18 10:51 Dose: 8 ml Tamsulosin HCl (Flomax) 0.4 mg PO DAILY [facility] Last Admin: 05/18/18 10:51 Dose: 0.4 mg Terbutaline Sulfate (Brethine Inj) 1 mg SQ UNSCH PRN PRN Reason: For Extravasation Warfarin Sodium (Coumadin) 5 mg PO DAILY@1600 [facility] Last Admin: 05/17/18 16:20 Dose: 5 mg Allergies/Adverse Reactions: Allergies Allergy/AdvReac Type Severity Reaction Status Date / Time No Known Allergies Allergy Verified 04/17/18 12:44 Physical Exam Vital signs: Vital Signs 05/18/18 08:15 05/18/18 08:30 05/18/18 08:45 Temperature Pulse Rate 90 93 H 92 H Respiratory Rate 17 17 16 Blood Pressure Pulse Oximetry 97 96 96 05/18/18 09:00 05/18/18 09:01 05/18/18 09:15 Temperature Pulse Rate 92 H 102 H Respiratory Rate 17 22 Blood Pressure 145/75 H Pulse Oximetry 97 97 91 L 05/18/18 09:30 05/18/18 09:45 05/18/18 10:00 Temperature Pulse Rate 92 H 94 H 90 Respiratory Rate 15 25 H 18 Blood Pressure Pulse Oximetry 98 100 98 05/18/18 10:01 05/18/18 10:15 05/18/18 10:30 Temperature Pulse Rate 91 H 99 H 100 H Respiratory Rate 18 22 20 Blood Pressure 144/82 H Pulse Oximetry 97 99 98 05/18/18 10:45 05/18/18 11:00 05/18/18 11:01 Temperature Pulse Rate 94 H 95 H 95 H Respiratory Rate 15 19 16 Blood Pressure 143/69 H Pulse Oximetry 97 98 98 05/18/18 11:15 05/18/18 11:30 05/18/18 11:45 Temperature Pulse Rate 98 H 92 H 92 H Respiratory Rate 18 22 17 Blood Pressure Pulse Oximetry 99 98 98 05/18/18 12:00 05/18/18 12:01 05/18/18 12:15 Temperature Pulse Rate 91 H 90 95 H Respiratory Rate 16 16 19 Blood Pressure 134/67 Pulse Oximetry 98 98 98 05/18/18 12:30 05/18/18 12:45 05/18/18 13:00 Temperature Pulse Rate 92 H 90 85 Respiratory Rate 15 15 13 Blood Pressure Pulse Oximetry 98 98 96 05/18/18 13:01 05/18/18 13:15 05/18/18 13:30 Temperature Pulse Rate 83 82 99 H Respiratory Rate 14 15 19 Blood Pressure 124/67 Pulse Oximetry 98 97 99 05/18/18 13:45 05/18/18 14:00 05/18/18 14:01 Temperature Pulse Rate 95 H 95 H 96 H Respiratory Rate 20 15 18 Blood Pressure 137/78 Pulse Oximetry 98 97 98 05/18/18 14:15 05/18/18 14:30 05/18/18 14:41 Temperature Pulse Rate 100 H 97 H 104 H Respiratory Rate 17 19 22 Blood Pressure 131/89 Pulse Oximetry 98 99 05/18/18 14:45 05/18/18 15:00 05/18/18 15:01 Temperature Pulse Rate 102 H 101 H 102 H Respiratory Rate 30 H 17 18 Blood Pressure 119/77 Pulse Oximetry 97 97 98 05/18/18 15:15 05/18/18 15:30 05/18/18 15:45 Temperature Pulse Rate 104 H 101 H 102 H Respiratory Rate 23 16 16 Blood Pressure Pulse Oximetry 96 96 96 05/18/18 16:00 05/18/18 16:01 05/18/18 16:15 Temperature Pulse Rate 103 H 103 H 102 H Respiratory Rate 21 16 17 Blood Pressure 128/67 Pulse Oximetry 98 97 96 05/18/18 16:30 05/18/18 16:45 05/18/18 17:00 Temperature Pulse Rate 103 H 103 H 103 H Respiratory Rate 21 16 18 Blood Pressure Pulse Oximetry 97 96 96 05/18/18 17:01 05/18/18 17:15 05/18/18 17:30 Temperature Pulse Rate 103 H 106 H 108 H Respiratory Rate 17 23 23 Blood Pressure 125/60 Pulse Oximetry 96 97 97 05/18/18 17:45 05/18/18 18:00 05/18/18 18:01 Temperature Pulse Rate 104 H 106 H 106 H Respiratory Rate 17 19 22 Blood Pressure 115/71 Pulse Oximetry 97 97 96 05/18/18 18:15 05/18/18 18:30 05/18/18 18:45 Temperature Pulse Rate 107 H 113 H 110 H Respiratory Rate 16 22 20 Blood Pressure Pulse Oximetry 97 97 97 05/18/18 19:00 05/18/18 19:01 05/18/18 19:15 Temperature Pulse Rate 112 H 113 H 116 H Respiratory Rate 21 21 17 Blood Pressure 126/80 Pulse Oximetry 98 97 97 05/18/18 19:30 05/18/18 19:45 05/18/18 20:00 Temperature 97.6 F Pulse Rate 116 H 88 107 H Respiratory Rate 17 20 25 H Blood Pressure Pulse Oximetry 97 97 97 05/18/18 20:01 05/18/18 20:15 05/18/18 20:30 Temperature Pulse Rate 92 H 99 H 95 H Respiratory Rate 29 H 14 15 Blood Pressure 105/74 Pulse Oximetry 98 97 98 05/18/18 20:39 05/18/18 20:45 05/18/18 21:00 Temperature Pulse Rate 92 H 98 H 94 H Respiratory Rate 15 17 16 Blood Pressure 102/68 Pulse Oximetry 97 97 98 12/12/18 21:01 05/18/18 21:15 05/18/18 21:30 Temperature Pulse Rate 95 H 92 H 91 H Respiratory Rate 15 15 16 Blood Pressure 105/57 L Pulse Oximetry 97 96 97 05/18/18 21:45 05/18/18 22:00 05/18/18 22:01 Temperature Pulse Rate 84 89 92 H Respiratory Rate 14 13 16 Blood Pressure 107/60 Pulse Oximetry 97 90 L 83 L 05/18/18 22:15 05/18/18 22:30 05/18/18 22:45 Temperature Pulse Rate 85 81 79 Respiratory Rate 14 16 14 Blood Pressure Pulse Oximetry 98 97 97 05/18/18 23:00 05/18/18 23:01 05/18/18 23:15 Temperature Pulse Rate 77 84 82 Respiratory Rate 12 14 15 Blood Pressure 115/69 Pulse Oximetry 97 84 L 94 L 05/18/18 23:30 05/18/18 23:45 05/19/18 00:00 Temperature 97.6 F Pulse Rate 89 79 86 Respiratory Rate 16 14 14 Blood Pressure Pulse Oximetry 74 L 95 96 05/19/18 00:01 05/19/18 00:15 05/19/18 00:30 Temperature Pulse Rate 87 84 86 Respiratory Rate 14 15 15 Blood Pressure 142/89 H Pulse Oximetry 96 96 96 05/19/18 00:45 05/19/18 01:00 05/19/18 01:01 Temperature Pulse Rate 87 83 81 Respiratory Rate 15 17 12 Blood Pressure 165/70 H Pulse Oximetry 98 95 96 05/19/18 01:15 05/19/18 01:30 05/19/18 01:45 Temperature Pulse Rate 83 81 92 H Respiratory Rate 16 14 15 Blood Pressure Pulse Oximetry 95 96 60 L 05/19/18 02:00 05/19/18 02:01 05/19/18 02:15 Temperature Pulse Rate 82 85 80 Respiratory Rate 14 16 16 Blood Pressure 125/64 Pulse Oximetry 85 L 90 L 96 05/19/18 02:30 05/19/18 02:45 05/19/18 03:00 Temperature Pulse Rate 77 76 76 Respiratory Rate 14 14 15 Blood Pressure Pulse Oximetry 99 95 96 05/19/18 03:01 05/19/18 03:15 05/19/18 03:30 Temperature Pulse Rate 75 94 H 86 Respiratory Rate 14 15 15 Blood Pressure 113/64 Pulse Oximetry 97 99 96 05/19/18 03:45 05/19/18 04:00 05/19/18 04:01 Temperature Pulse Rate 89 89 86 Respiratory Rate 21 19 15 Blood Pressure 126/66 Pulse Oximetry 97 97 95 05/19/18 04:15 05/19/18 04:30 Temperature Pulse Rate 80 88 Respiratory Rate 13 16 Blood Pressure Pulse Oximetry 97 79 L Intake & Output 05/18/18 05/19/18 05/19/18 18:59 06:59 18:59 Intake Total 420 / 420 100 / 100 100 / 100 Output Total 1700 / 1700 600 / 600 Balance -1280 / -1280 -500 / -500 100 / 100 Weight 74.5 kg Intake: IV 250 / 250 100 / 100 Heparin/D5W 25,000 U/250 mL 25, 250 / 250 000 unit In 250 ml @ Per Protocol IV.CONT TITRATE PRN Rx #:[id number] Oral 120 / 120 100 / 100 Anesthesia Amount 50 / 50 Output: Urine 250 / 250 Stool 0 / 0 Urine Amount (Catheter) 1450 / 1450 600 / 600 Condom 1450 / 1450 600 / 600 Other: # Voids 2 # Incontinent Voids 2 # Urine Diapers 1 Date of Last Bowel Movement 05/12/18 05/12/18 # Bowel Movements 0 # Incontinent Bowel Movements 1 Narrative: no new c/o stil mild rhp talking alittle more - Urinary Catheter Management Condom Cath placed during this visit: no Reason for continuing: Hourly intake/output Objective Laboratory Results - last 24 hr 05/18/18 05/18/18 05/18/18 08:34 08:34 18:38 WBC 8.7 RBC 3.33 L Hgb 10.3 L Hct 29.5 L MCV 88.6 MCH 31.0 MCHC 35.0 RDW 15.3 Plt Count 212 MPV 7.0 Neut % (Auto) 78.1 H Lymph % (Auto) 12.0 [place] % (Auto) 7.1 Eos % (Auto) 2.6 Baso % (Auto) 0.2 Neut # (Auto) 6.8 Lymph # (Auto) 1.0 [place] # (Auto) 0.6 Eos # (Auto) 0.2 Baso # (Auto) 0.0 WBC Differential . Differential Comment Auto diff final PT 44.0 H D INR 4.4 Sodium 139 Potassium 3.5 Chloride 105 Carbon Dioxide 25.5 Anion Gap 9 BUN 7 Creatinine 0.65 Estimated GFR Greater than 89 Random Glucose 125 H Calcium 8.5 D 05/19/18 05:18 WBC RBC Hgb Hct MCV MCH MCHC RDW Plt Count MPV Neut % (Auto) Lymph % (Auto) [place] % (Auto) Eos % (Auto) Baso % (Auto) Neut # (Auto) Lymph # (Auto) [place] # (Auto) Eos # (Auto) Baso # (Auto) WBC Differential Differential Comment PT 46.6 H INR 4.6 Sodium Potassium Chloride Carbon Dioxide Anion Gap BUN Creatinine Estimated GFR Random Glucose Calcium Review/Management - Review/Management Plan: neurologically stable Dr Serrato to resume care tomorrow 05/16/18 doing a little better apparently egd neg ok by me for colonoscopy as long as bp kept up needed txfusion bp better on midodrine I WOULD LIKE LOOP PLACED BY CARDS oob 05/18/18 stable neuro inr should run lower 2-2.5 wit gi bleed dc asa and heparin loop in today bp better neuro haji ready for rehab if more gib do colonoscopy 05/19/18 stable neuro gib pos inr 4.6 no major bleeding ok to rehab when loop in keep inr 2-2.5
[2018-05-19] MEDS ORDERED: Naphazoline 0.012% Opth Drops 30 ML Bottle EACH EYE PRN (08:33)
--- NOTE | 2018-05-19 08:34 | P.PNFP ---
Subjective Interval history: There were no acute events overnight. He continues to complain of some itchiness in his eyes that he reports is mildly better today. He continues to be disoriented, dysarthric, and aphasic. He denies other complaints today, however review systems is limited due to his aphasia and dysarthria. <Luis Antonio Ann - 05/19/18 10:13> Results - Labs Result diagrams: 05/18/18 08:34 05/18/18 08:34 <Facundo Thomas - 05/19/18 13:58> Abnormal lab results 05/18/18 05/19/18 Range/Units 18:38 05:18 PT 44.0 H D 46.6 H (9.8-11.6) sec <Facundo Thomas - 05/19/18 13:58> Abnormal lab results 05/18/18 05/18/18 05/18/18 Range/Units 08:34 08:34 18:38 RBC 3.33 L (4.50-5.90) mil/mm3 Hgb 10.3 L (13.0-17.0) gm/dL Hct 29.5 L (39.0-51.0) % Neut % (Auto) 78.1 H (16.0-70.0) % PT 44.0 H D (9.8-11.6) sec Random Glucose 125 H (74-106) mg/dL 05/19/18 Range/Units 05:18 RBC (4.50-5.90) mil/mm3 Hgb (13.0-17.0) gm/dL Hct (39.0-51.0) % Neut % (Auto) (16.0-70.0) % PT 46.6 H (9.8-11.6) sec Random Glucose (74-106) mg/dL Short CBC 05/18/18 Range/Units 08:34 WBC 8.7 (4.0-11.0) th/mm3 Hgb 10.3 L (13.0-17.0) gm/dL Hct 29.5 L (39.0-51.0) % Plt Count 212 (150-450) th/mm3 BMP 05/18/18 08:34 Sodium 139 Potassium 3.5 Chloride 105 Carbon Dioxide 25.5 BUN 7 Creatinine 0.65 Calcium 8.5 D <MarissaErnestoLuis Antonio J - 05/19/18 08:34> Physical Exam Vital signs: Vital Signs 05/18/18 14:00 05/18/18 14:01 05/18/18 14:15 Temperature Pulse Rate 95 H 96 H 100 H Respiratory Rate 15 18 17 Blood Pressure 137/78 Pulse Oximetry 97 98 98 05/18/18 14:30 05/18/18 14:41 05/18/18 14:45 Temperature Pulse Rate 97 H 104 H 102 H Respiratory Rate 19 22 30 H Blood Pressure 131/89 Pulse Oximetry 99 97 05/18/18 15:00 05/18/18 15:01 05/18/18 15:15 Temperature Pulse Rate 101 H 102 H 104 H Respiratory Rate 17 18 23 Blood Pressure 119/77 Pulse Oximetry 97 98 96 05/18/18 15:30 05/18/18 15:45 05/18/18 16:00 Temperature Pulse Rate 101 H 102 H 103 H Respiratory Rate 16 16 21 Blood Pressure Pulse Oximetry 96 96 98 05/18/18 16:01 05/18/18 16:15 05/18/18 16:30 Temperature Pulse Rate 103 H 102 H 103 H Respiratory Rate 16 17 21 Blood Pressure 128/67 Pulse Oximetry 97 96 97 05/18/18 16:45 05/18/18 17:00 05/18/18 17:01 Temperature Pulse Rate 103 H 103 H 103 H Respiratory Rate 16 18 17 Blood Pressure 125/60 Pulse Oximetry 96 96 96 05/18/18 17:15 05/18/18 17:30 05/18/18 17:45 Temperature Pulse Rate 106 H 108 H 104 H Respiratory Rate 23 23 17 Blood Pressure Pulse Oximetry 97 97 97 05/18/18 18:00 05/18/18 18:01 05/18/18 18:15 Temperature Pulse Rate 106 H 106 H 107 H Respiratory Rate 19 22 16 Blood Pressure 115/71 Pulse Oximetry 97 96 97 05/18/18 18:30 05/18/18 18:45 05/18/18 19:00 Temperature Pulse Rate 113 H 110 H 112 H Respiratory Rate 22 20 21 Blood Pressure Pulse Oximetry 97 97 98 05/18/18 19:01 05/18/18 19:15 05/18/18 19:30 Temperature Pulse Rate 113 H 116 H 116 H Respiratory Rate 21 17 17 Blood Pressure 126/80 Pulse Oximetry 97 97 97 05/18/18 19:45 05/18/18 20:00 05/18/18 20:01 Temperature 97.6 F Pulse Rate 88 107 H 92 H Respiratory Rate 20 25 H 29 H Blood Pressure 105/74 Pulse Oximetry 97 97 98 05/18/18 20:15 05/18/18 20:30 05/18/18 20:39 Temperature Pulse Rate 99 H 95 H 92 H Respiratory Rate 14 15 15 Blood Pressure 102/68 Pulse Oximetry 97 98 97 05/18/18 20:45 05/18/18 21:00 05/18/18 21:01 Temperature Pulse Rate 98 H 94 H 95 H Respiratory Rate 17 16 15 Blood Pressure 105/57 L Pulse Oximetry 97 98 97 05/18/18 21:15 05/18/18 21:30 05/18/18 21:45 Temperature Pulse Rate 92 H 91 H 84 Respiratory Rate 15 16 14 Blood Pressure Pulse Oximetry 96 97 97 05/18/18 22:00 05/18/18 22:01 05/18/18 22:15 Temperature Pulse Rate 89 92 H 85 Respiratory Rate 13 16 14 Blood Pressure 107/60 Pulse Oximetry 90 L 83 L 98 05/18/18 22:30 05/18/18 22:45 05/18/18 23:00 Temperature Pulse Rate 81 79 77 Respiratory Rate 16 14 12 Blood Pressure Pulse Oximetry 97 97 97 05/18/18 23:01 05/18/18 23:15 05/18/18 23:30 Temperature Pulse Rate 84 82 89 Respiratory Rate 14 15 16 Blood Pressure 115/69 Pulse Oximetry 84 L 94 L 74 L 05/18/18 23:45 05/19/18 00:00 05/19/18 00:01 Temperature 97.6 F Pulse Rate 79 86 87 Respiratory Rate 14 14 14 Blood Pressure 142/89 H Pulse Oximetry 95 96 96 05/19/18 00:15 05/19/18 00:30 05/19/18 00:45 Temperature Pulse Rate 84 86 87 Respiratory Rate 15 15 15 Blood Pressure Pulse Oximetry 96 96 98 05/19/18 01:00 05/19/18 01:01 05/19/18 01:15 Temperature Pulse Rate 83 81 83 Respiratory Rate 17 12 16 Blood Pressure 165/70 H Pulse Oximetry 95 96 95 05/19/18 01:30 05/19/18 01:45 05/19/18 02:00 Temperature Pulse Rate 81 92 H 82 Respiratory Rate 14 15 14 Blood Pressure Pulse Oximetry 96 60 L 85 L 05/19/18 02:01 05/19/18 02:15 05/19/18 02:30 Temperature Pulse Rate 85 80 77 Respiratory Rate 16 16 14 Blood Pressure 125/64 Pulse Oximetry 90 L 96 99 05/19/18 02:45 05/19/18 03:00 05/19/18 03:01 Temperature Pulse Rate 76 76 75 Respiratory Rate 14 15 14 Blood Pressure 113/64 Pulse Oximetry 95 96 97 05/19/18 03:15 05/19/18 03:30 05/19/18 03:45 Temperature Pulse Rate 94 H 86 89 Respiratory Rate 15 15 21 Blood Pressure Pulse Oximetry 99 96 97 05/19/18 04:00 05/19/18 04:01 05/19/18 04:15 Temperature Pulse Rate 89 86 80 Respiratory Rate 19 15 13 Blood Pressure 126/66 Pulse Oximetry 97 95 97 05/19/18 04:30 05/19/18 08:00 Temperature Pulse Rate 88 88 Respiratory Rate 16 16 Blood Pressure Pulse Oximetry 79 L 99 Intake & Output 05/18/18 05/19/18 05/19/18 18:59 06:59 18:59 Intake Total 420 / 420 100 / 100 100 / 100 Output Total 1700 / 1700 600 / 600 Balance -1280 / -1280 -500 / -500 100 / 100 Weight 74.5 kg Intake: IV 250 / 250 100 / 100 Heparin/D5W 25,000 U/250 mL 25, 250 / 250 000 unit In 250 ml @ Per Protocol IV.CONT TITRATE PRN Rx #:[id number] Oral 120 / 120 100 / 100 Anesthesia Amount 50 / 50 Output: Urine 250 / 250 Stool 0 / 0 Urine Amount (Catheter) 1450 / 1450 600 / 600 Condom 1450 / 1450 600 / 600 Other: # Voids 2 # Incontinent Voids 2 # Urine Diapers 1 Date of Last Bowel Movement 05/12/18 05/12/18 05/12/18 # Bowel Movements 0 # Incontinent Bowel Movements 1 <Facundo Thomas - 05/19/18 13:58> Vital Signs 05/18/18 08:45 05/18/18 09:00 05/18/18 09:01 Temperature Pulse Rate 92 H 92 H Respiratory Rate 16 17 Blood Pressure 145/75 H Pulse Oximetry 96 97 97 05/18/18 09:15 05/18/18 09:30 05/18/18 09:45 Temperature Pulse Rate 102 H 92 H 94 H Respiratory Rate 22 15 25 H Blood Pressure Pulse Oximetry 91 L 98 100 05/18/18 10:00 05/18/18 10:01 05/18/18 10:15 Temperature Pulse Rate 90 91 H 99 H Respiratory Rate 18 18 22 Blood Pressure 144/82 H Pulse Oximetry 98 97 99 05/18/18 10:30 05/18/18 10:45 05/18/18 11:00 Temperature Pulse Rate 100 H 94 H 95 H Respiratory Rate 20 15 19 Blood Pressure Pulse Oximetry 98 97 98 05/18/18 11:01 05/18/18 11:15 05/18/18 11:30 Temperature Pulse Rate 95 H 98 H 92 H Respiratory Rate 16 18 22 Blood Pressure 143/69 H Pulse Oximetry 98 99 98 05/18/18 11:45 05/18/18 12:00 05/18/18 12:01 Temperature Pulse Rate 92 H 91 H 90 Respiratory Rate 17 16 16 Blood Pressure 134/67 Pulse Oximetry 98 98 98 05/18/18 12:15 05/18/18 12:30 05/18/18 12:45 Temperature Pulse Rate 95 H 92 H 90 Respiratory Rate 19 15 15 Blood Pressure Pulse Oximetry 98 98 98 05/18/18 13:00 05/18/18 13:01 05/18/18 13:15 Temperature Pulse Rate 85 83 82 Respiratory Rate 13 14 15 Blood Pressure 124/67 Pulse Oximetry 96 98 97 05/18/18 13:30 05/18/18 13:45 05/18/18 14:00 Temperature Pulse Rate 99 H 95 H 95 H Respiratory Rate 19 20 15 Blood Pressure Pulse Oximetry 99 98 97 05/18/18 14:01 05/18/18 14:15 05/18/18 14:30 Temperature Pulse Rate 96 H 100 H 97 H Respiratory Rate 18 17 19 Blood Pressure 137/78 Pulse Oximetry 98 98 99 05/18/18 14:41 05/18/18 14:45 05/18/18 15:00 Temperature Pulse Rate 104 H 102 H 101 H Respiratory Rate 22 30 H 17 Blood Pressure 131/89 Pulse Oximetry 97 97 05/18/18 15:01 05/18/18 15:15 05/18/18 15:30 Temperature Pulse Rate 102 H 104 H 101 H Respiratory Rate 18 23 16 Blood Pressure 119/77 Pulse Oximetry 98 96 96 05/18/18 15:45 05/18/18 16:00 05/18/18 16:01 Temperature Pulse Rate 102 H 103 H 103 H Respiratory Rate 16 21 16 Blood Pressure 128/67 Pulse Oximetry 96 98 97 05/18/18 16:15 05/18/18 16:30 05/18/18 16:45 Temperature Pulse Rate 102 H 103 H 103 H Respiratory Rate 17 21 16 Blood Pressure Pulse Oximetry 96 97 96 05/18/18 17:00 05/18/18 17:01 05/18/18 17:15 Temperature Pulse Rate 103 H 103 H 106 H Respiratory Rate 18 17 23 Blood Pressure 125/60 Pulse Oximetry 96 96 97 05/18/18 17:30 05/18/18 17:45 05/18/18 18:00 Temperature Pulse Rate 108 H 104 H 106 H Respiratory Rate 23 17 19 Blood Pressure Pulse Oximetry 97 97 97 05/18/18 18:01 05/18/18 18:15 05/18/18 18:30 Temperature Pulse Rate 106 H 107 H 113 H Respiratory Rate 22 16 22 Blood Pressure 115/71 Pulse Oximetry 96 97 97 05/18/18 18:45 05/18/18 19:00 05/18/18 19:01 Temperature Pulse Rate 110 H 112 H 113 H Respiratory Rate 20 21 21 Blood Pressure 126/80 Pulse Oximetry 97 98 97 05/18/18 19:15 05/18/18 19:30 05/18/18 19:45 Temperature Pulse Rate 116 H 116 H 88 Respiratory Rate 17 17 20 Blood Pressure Pulse Oximetry 97 97 97 05/18/18 20:00 05/18/18 20:01 05/18/18 20:15 Temperature 97.6 F Pulse Rate 107 H 92 H 99 H Respiratory Rate 25 H 29 H 14 Blood Pressure 105/74 Pulse Oximetry 97 98 97 05/18/18 20:30 05/18/18 20:39 05/18/18 20:45 Temperature Pulse Rate 95 H 92 H 98 H Respiratory Rate 15 15 17 Blood Pressure 102/68 Pulse Oximetry 98 97 97 05/18/18 21:00 05/18/18 21:01 05/18/18 21:15 Temperature Pulse Rate 94 H 95 H 92 H Respiratory Rate 16 15 15 Blood Pressure 105/57 L Pulse Oximetry 98 97 96 05/18/18 21:30 05/18/18 21:45 05/18/18 22:00 Temperature Pulse Rate 91 H 84 89 Respiratory Rate 16 14 13 Blood Pressure Pulse Oximetry 97 97 90 L 05/18/18 22:01 05/18/18 22:15 05/18/18 22:30 Temperature Pulse Rate 92 H 85 81 Respiratory Rate 16 14 16 Blood Pressure 107/60 Pulse Oximetry 83 L 98 97 05/18/18 22:45 05/18/18 23:00 05/18/18 23:01 Temperature Pulse Rate 79 77 84 Respiratory Rate 14 12 14 Blood Pressure 115/69 Pulse Oximetry 97 97 84 L 05/18/18 23:15 05/18/18 23:30 05/18/18 23:45 Temperature Pulse Rate 82 89 79 Respiratory Rate 15 16 14 Blood Pressure Pulse Oximetry 94 L 74 L 95 05/19/18 00:00 05/19/18 00:01 05/19/18 00:15 Temperature 97.6 F Pulse Rate 86 87 84 Respiratory Rate 14 14 15 Blood Pressure 142/89 H Pulse Oximetry 96 96 96 05/19/18 00:30 05/19/18 00:45 05/19/18 01:00 Temperature Pulse Rate 86 87 83 Respiratory Rate 15 15 17 Blood Pressure Pulse Oximetry 96 98 95 05/19/18 01:01 05/19/18 01:15 05/19/18 01:30 Temperature Pulse Rate 81 83 81 Respiratory Rate 12 16 14 Blood Pressure 165/70 H Pulse Oximetry 96 95 96 05/19/18 01:45 05/19/18 02:00 05/19/18 02:01 Temperature Pulse Rate 92 H 82 85 Respiratory Rate 15 14 16 Blood Pressure 125/64 Pulse Oximetry 60 L 85 L 90 L 05/19/18 02:15 05/19/18 02:30 05/19/18 02:45 Temperature Pulse Rate 80 77 76 Respiratory Rate 16 14 14 Blood Pressure Pulse Oximetry 96 99 95 05/19/18 03:00 05/19/18 03:01 05/19/18 03:15 Temperature Pulse Rate 76 75 94 H Respiratory Rate 15 14 15 Blood Pressure 113/64 Pulse Oximetry 96 97 99 05/19/18 03:30 05/19/18 03:45 05/19/18 04:00 Temperature Pulse Rate 86 89 89 Respiratory Rate 15 21 19 Blood Pressure Pulse Oximetry 96 97 97 05/19/18 04:01 05/19/18 04:15 05/19/18 04:30 Temperature Pulse Rate 86 80 88 Respiratory Rate 15 13 16 Blood Pressure 126/66 Pulse Oximetry 95 97 79 L Intake & Output 05/18/18 05/19/18 05/19/18 18:59 06:59 18:59 Intake Total 420 / 420 100 / 100 100 / 100 Output Total 1700 / 1700 600 / 600 Balance -1280 / -1280 -500 / -500 100 / 100 Weight 74.5 kg Intake: IV 250 / 250 100 / 100 Heparin/D5W 25,000 U/250 mL 25, 250 / 250 000 unit In 250 ml @ Per Protocol IV.CONT TITRATE PRN Rx #:[id number] Oral 120 / 120 100 / 100 Anesthesia Amount 50 / 50 Output: Urine 250 / 250 Stool 0 / 0 Urine Amount (Catheter) 1450 / 1450 600 / 600 Condom 1450 / 1450 600 / 600 Other: # Voids 2 # Incontinent Voids 2 # Urine Diapers 1 Date of Last Bowel Movement 05/12/18 05/12/18 # Bowel Movements 0 # Incontinent Bowel Movements 1 <Luis Antonio Ann - 05/19/18 08:34> Narrative: General: Well-developed, alert, and in no acute distress. Appears stated age. HEENT: Atraumatic, moist mucous membranes Neck: Supple, trachea midline Cardiac: Regular rate and rhythm without murmur Pulmonary: Non-labored breathing. Lungs clear to auscultation bilaterally with good air movement Abdomen: Normal bowel sounds, soft and non-tender without rebound or guarding Extremities: No edema, 2+ pedal pulses, capillary refill less than 2 seconds Neurologic: Oriented only to person today. Stable dysarthria and expressive and receptive aphasia. Pronator drift on the right side, stable. 5 out of 5 strength in the left upper and lower extremities. 4 out of 5 strength in the right upper and lower extremities. Facial muscle asymmetry noted with smiling. His confusion does wax and wane. <Luis Antonio Ann - 05/19/18 10:13> - Urinary Catheter Management Condom Cath placed during this visit: no <Facundo Thomas - 05/19/18 13:58> no <Luis Antonio Ann - 05/19/18 10:13> Reason for continuing: Hourly intake/output <Luis Antonio Ann - 05/19/18 08:34> Assessment and Plan - Assessment (1) Acute CVA (cerebrovascular accident) Code(s): I63.9 - Cerebral infarction, unspecified Status: Acute (2) Confusion Code(s): R41.0 - Disorientation, unspecified Status: Acute (3) Hypertension Code(s): I10 - Essential (primary) hypertension Status: Acute (4) Internal carotid artery stenosis Code(s): I65.29 - Occlusion and stenosis of unspecified carotid artery Status : Acute (5) Dysarthria Code(s): R47.1 - Dysarthria and anarthria Status: Acute (6) Heme positive stool Code(s): R19.5 - Other fecal abnormalities Status: Acute <Facundo Thomas - 05/19/18 13:58> (1) Acute CVA (cerebrovascular accident) Code(s): I63.9 - Cerebral infarction, unspecified Status: Acute (2) Confusion Code(s): R41.0 - Disorientation, unspecified Status: Acute (3) Hypertension Code(s): I10 - Essential (primary) hypertension Status: Acute (4) Internal carotid artery stenosis Code(s): I65.29 - Occlusion and stenosis of unspecified carotid artery Status : Acute (5) Dysarthria Code(s): R47.1 - Dysarthria and anarthria Status: Acute (6) Heme positive stool Code(s): R19.5 - Other fecal abnormalities Status: Acute <Luis Antonio Ann - 05/19/18 10:03> - Assessment and Plan Patient is an 83-year-old male who presented with acute stroke and had a repeat stroke while hospitalized. He is 3 weeks s/p CVA and right-sided endarterectomy. He has a chronically occluded left carotid. Symptoms at this time include 4 out of 5 strength on the right, right facial droop, significant dysarthria, and significant receptive and expressive aphasia. He also has significant confusion and it is unclear how much of this is secondary to the stroke. Acute stroke: -Neurology is following -Loop recorder was placed yesterday -Continuous telemetry -Neurochecks every 4 hours -Continue Lipitor 80 mg p.o. at bedtime -Physical therapy recommends PT at rehab -Speech therapy: Will need continued therapy Anticoagulation -No aspirin/Plavix per neurology Heparin drip was discontinued due to supratherapeutic INR Transitioning to warfarin, INR 4.6 this morning. Warfarin held. Continue to follow INR with a goal of 22.5 per neurology. -H&H stable at 10.3 Chronic hypertension: -Hold home antihypertensives due to pressure that is borderline for current post stroke goals. -Vasotec for SBP greater than 180 or DBP greater than 110 -Restart midodrine 10 mg 3 times daily to maintain blood pressures. Dr. Serrato wants a systolic blood pressure of about 140 Confusion: This may be entirely from his CVA, however other causes may contribute especially considering the time course of his symptoms. He does also have some chronic dementia symptoms. Urinalysis to assess for UTI was negative. -Family was educated regarding wearing his hearing aids and reorienting him often -His confusion has been waxing and waning throughout the hospitalization, but is overall stable Heme Positive stool: Reported black stools with heme positive. GI consulted and EGD showed some erosive duodenitis. Status post 1 unit PRBC. Hemoglobin has been stable. Had dark stools again today. -GI recommends waiting to do the colonoscopy as an outpatient and has signed off Hemoccult ordered Fluids: Adequate p.o. intake Electrolytes: monitor and replete as needed Nutrition: Mechanical soft diet with nectar thick liquids per speech therapy GI prophylaxis: Not indicated VTE prophylaxis: Anticoagulated with warfarin, see above CODE STATUS: He is a DO NOT RESUSCITATE CODE STATUS after discussion with the family. Goals of care remain otherwise aggressive Disposition: Plan for discharge to [facility] today <Luis Antonio Ann - 05/19/18 10:13> - Attending Attestation See the residents documentation for details. I saw and evaluated the patient regarding the jenkins portions of this evaluation and agree with the residents findings and plans as written. Parts of this note were created using [employer] voice recognition software program. While efforts were made to correct any mistakes made by this software, some mistakes, errors, and omissions may remain in the final note that were not caught when the note was originally created. Plan of care was discussed and agreed upon with the patient as specifically documented in the above note. An opportunity to ask questions with explanation was provided. Patient voiced understanding on all information reviewed and discussed. Need to check the patients code status at this time. Per guardian Full Code <Facundo Thomas - 05/19/18 13:58>
[2018-05-19] MEDS: Senna/Docusate Sodium 8.6/50 MG Tablet PO SCH (09:23)
[2018-05-19] MEDS: Pantoprazole Inj 40 MG Vial IV.PUSH SCH (09:24)
[2018-05-19] MEDS ORDERED: Erythromycin 0.5% Opth Oint 3.5 GM Tube EACH EYE SCH (10:00)
--- NOTE | 2018-05-19 10:58 | P.PNPAL ---
Reason for Visit Reason for visit: a. To assist with evaluation and management of symptoms including: pain, debility, confusion b. To assist medical decision maker(s) with: better understanding of current medical conditions; weighing benefits/burdens of medical treatment options; making medical treatment decisions. Subjective Subjective/Interval History: DRAFT.... Mr. Barber is an 83-year-old male who presented to [place] ED on 05/11/2018 via EMS as a stroke alert. Approximately 3 weeks earlier the patient suffered a stroke which left him with residual right-sided weakness, mild dysarthria, intermittent confusion. He was transferred to [facility] at discharge. Patient's functional status was slowly improving until the morning of 05/11/2018 when he developed additional and worsening symptoms. 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 The entire region of involvement is approximately 2.2 x 8.4 cm in greatest transaxial dimension. Follow-up visit for symptom management of pain and debility as well as clarification of medical treatment goals. Patient seen and assessed in [facility], room 1331, sitting upright in stretcher chair. Patient's son is at bedside. Oriented to self, able to tell me his name. Ongoing right-sided facial droop, dysarthria and receptive/expressive aphasia. Patient had an EGD on 05/13/2018 which showed LA class B esophagitis. 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 The mucosa of the stomach appeared normal. Erosive duodenitis. Duodenal inflammation was found in the duodenal bulb. Retroflexed views revealed a hiatal hernia. Plan for colonoscopy outpatient; GI has signed off. Swallow function was reevaluated on 05/16/18 with recommendations for mechanically soft diet and nectar consistency thickened liquids. Patient's intake improving; tolerated > 50% of breakfast meal. Blood pressure has been stable, not requiring PRN midodrine since 2pm yesterday 05/16/18. Clinical data: * WBC: 9.2, 9.8, 28.2, 213, neutrophils 77.5% * PT: 13.5, INR 1.3, APTT 59.8% * Sodium: 139, potassium 3.8, chloride 1, carbon dioxide 26.8, glucose 122, calcium 7.7 * BUN: 8, creatinine 0.67, GFR >89 Plan for discharge to [facility] shortly after loop recorder placement on 05/18/18. Goals remain aggressive up to the point of cardiopulmonary resuscitation. Advance Directives Documented care wishes:: Family believes the patient completed written advanced directive and will bring a copy of the documents when they are found. Objective Vital Signs: Vital Signs 05/18/18 11:00 05/18/18 11:01 05/18/18 11:15 Temperature Pulse Rate 95 H 95 H 98 H Respiratory Rate 19 16 18 Blood Pressure 143/69 H Pulse Oximetry 98 98 99 05/18/18 11:30 05/18/18 11:45 05/18/18 12:00 Temperature Pulse Rate 92 H 92 H 91 H Respiratory Rate 22 17 16 Blood Pressure Pulse Oximetry 98 98 98 05/18/18 12:01 05/18/18 12:15 05/18/18 12:30 Temperature Pulse Rate 90 95 H 92 H Respiratory Rate 16 19 15 Blood Pressure 134/67 Pulse Oximetry 98 98 98 05/18/18 12:45 05/18/18 13:00 05/18/18 13:01 Temperature Pulse Rate 90 85 83 Respiratory Rate 15 13 14 Blood Pressure 124/67 Pulse Oximetry 98 96 98 05/18/18 13:15 05/18/18 13:30 05/18/18 13:45 Temperature Pulse Rate 82 99 H 95 H Respiratory Rate 15 19 20 Blood Pressure Pulse Oximetry 97 99 98 05/18/18 14:00 05/18/18 14:01 05/18/18 14:15 Temperature Pulse Rate 95 H 96 H 100 H Respiratory Rate 15 18 17 Blood Pressure 137/78 Pulse Oximetry 97 98 98 05/18/18 14:30 05/18/18 14:41 05/18/18 14:45 Temperature Pulse Rate 97 H 104 H 102 H Respiratory Rate 19 22 30 H Blood Pressure 131/89 Pulse Oximetry 99 97 05/18/18 15:00 05/18/18 15:01 05/18/18 15:15 Temperature Pulse Rate 101 H 102 H 104 H Respiratory Rate 17 18 23 Blood Pressure 119/77 Pulse Oximetry 97 98 96 05/18/18 15:30 05/18/18 15:45 05/18/18 16:00 Temperature Pulse Rate 101 H 102 H 103 H Respiratory Rate 16 16 21 Blood Pressure Pulse Oximetry 96 96 98 05/18/18 16:01 05/18/18 16:15 05/18/18 16:30 Temperature Pulse Rate 103 H 102 H 103 H Respiratory Rate 16 17 21 Blood Pressure 128/67 Pulse Oximetry 97 96 97 05/18/18 16:45 05/18/18 17:00 05/18/18 17:01 Temperature Pulse Rate 103 H 103 H 103 H Respiratory Rate 16 18 17 Blood Pressure 125/60 Pulse Oximetry 96 96 96 05/18/18 17:15 05/18/18 17:30 05/18/18 17:45 Temperature Pulse Rate 106 H 108 H 104 H Respiratory Rate 23 23 17 Blood Pressure Pulse Oximetry 97 97 97 05/18/18 18:00 05/18/18 18:01 05/18/18 18:15 Temperature Pulse Rate 106 H 106 H 107 H Respiratory Rate 19 22 16 Blood Pressure 115/71 Pulse Oximetry 97 96 97 05/18/18 18:30 05/18/18 18:45 05/18/18 19:00 Temperature Pulse Rate 113 H 110 H 112 H Respiratory Rate 22 20 21 Blood Pressure Pulse Oximetry 97 97 98 05/18/18 19:01 05/18/18 19:15 05/18/18 19:30 Temperature Pulse Rate 113 H 116 H 116 H Respiratory Rate 21 17 17 Blood Pressure 126/80 Pulse Oximetry 97 97 97 05/18/18 19:45 05/18/18 20:00 05/18/18 20:01 Temperature 97.6 F Pulse Rate 88 107 H 92 H Respiratory Rate 20 25 H 29 H Blood Pressure 105/74 Pulse Oximetry 97 97 98 05/18/18 20:15 05/18/18 20:30 05/18/18 20:39 Temperature Pulse Rate 99 H 95 H 92 H Respiratory Rate 14 15 15 Blood Pressure 102/68 Pulse Oximetry 97 98 97 05/18/18 20:45 05/18/18 21:00 05/18/18 21:01 Temperature Pulse Rate 98 H 94 H 95 H Respiratory Rate 17 16 15 Blood Pressure 105/57 L Pulse Oximetry 97 98 97 05/18/18 21:15 05/18/18 21:30 05/18/18 21:45 Temperature Pulse Rate 92 H 91 H 84 Respiratory Rate 15 16 14 Blood Pressure Pulse Oximetry 96 97 97 05/18/18 22:00 05/18/18 22:01 05/18/18 22:15 Temperature Pulse Rate 89 92 H 85 Respiratory Rate 13 16 14 Blood Pressure 107/60 Pulse Oximetry 90 L 83 L 98 05/18/18 22:30 05/18/18 22:45 05/18/18 23:00 Temperature Pulse Rate 81 79 77 Respiratory Rate 16 14 12 Blood Pressure Pulse Oximetry 97 97 97 05/18/18 23:01 05/18/18 23:15 05/18/18 23:30 Temperature Pulse Rate 84 82 89 Respiratory Rate 14 15 16 Blood Pressure 115/69 Pulse Oximetry 84 L 94 L 74 L 05/18/18 23:45 05/19/18 00:00 05/19/18 00:01 Temperature 97.6 F Pulse Rate 79 86 87 Respiratory Rate 14 14 14 Blood Pressure 142/89 H Pulse Oximetry 95 96 96 05/19/18 00:15 05/19/18 00:30 05/19/18 00:45 Temperature Pulse Rate 84 86 87 Respiratory Rate 15 15 15 Blood Pressure Pulse Oximetry 96 96 98 05/19/18 01:00 05/19/18 01:01 05/19/18 01:15 Temperature Pulse Rate 83 81 83 Respiratory Rate 17 12 16 Blood Pressure 165/70 H Pulse Oximetry 95 96 95 05/19/18 01:30 05/19/18 01:45 05/19/18 02:00 Temperature Pulse Rate 81 92 H 82 Respiratory Rate 14 15 14 Blood Pressure Pulse Oximetry 96 60 L 85 L 05/19/18 02:01 05/19/18 02:15 05/19/18 02:30 Temperature Pulse Rate 85 80 77 Respiratory Rate 16 16 14 Blood Pressure 125/64 Pulse Oximetry 90 L 96 99 05/19/18 02:45 05/19/18 03:00 05/19/18 03:01 Temperature Pulse Rate 76 76 75 Respiratory Rate 14 15 14 Blood Pressure 113/64 Pulse Oximetry 95 96 97 05/19/18 03:15 05/19/18 03:30 05/19/18 03:45 Temperature Pulse Rate 94 H 86 89 Respiratory Rate 15 15 21 Blood Pressure Pulse Oximetry 99 96 97 05/19/18 04:00 05/19/18 04:01 05/19/18 04:15 Temperature Pulse Rate 89 86 80 Respiratory Rate 19 15 13 Blood Pressure 126/66 Pulse Oximetry 97 95 97 05/19/18 04:30 05/19/18 08:00 Temperature Pulse Rate 88 88 Respiratory Rate 16 16 Blood Pressure Pulse Oximetry 79 L 99 Intake & Output 05/18/18 05/19/18 05/19/18 18:59 06:59 18:59 Intake Total 420 / 420 100 / 100 100 / 100 Output Total 1700 / 1700 600 / 600 Balance -1280 / -1280 -500 / -500 100 / 100 Weight 74.5 kg Intake: IV 250 / 250 100 / 100 Heparin/D5W 25,000 U/250 mL 25, 250 / 250 000 unit In 250 ml @ Per Protocol IV.CONT TITRATE PRN Rx #:[id number] Oral 120 / 120 100 / 100 Anesthesia Amount 50 / 50 Output: Urine 250 / 250 Stool 0 / 0 Urine Amount (Catheter) 1450 / 1450 600 / 600 Condom 1450 / 1450 600 / 600 Other: # Voids 2 # Incontinent Voids 2 # Urine Diapers 1 Date of Last Bowel Movement 05/12/18 05/12/18 05/12/18 # Bowel Movements 0 # Incontinent Bowel Movements 1 Physical Exam: CONSTITUTIONAL/GENERAL: This is an adequately nourished patient, in no apparent distress. TUBES/LINES/DRAINS: PIV SKIN: No jaundice, rashes, or lesions. Ecchymoses on upper extremities. No wounds seen anteriorly. Skin temperature appropriate. Not diaphoretic. HEAD: Atraumatic. Normocephalic. EYES: Pupils equal and round and reactive. Extraocular motions intact. No scleral icterus. No injection or drainage. Fundi not examined. ENT: Hearing grossly normal. Nose without bleeding or purulent drainage. Throat without visible erythema, exudates, masses, or lesions. NECK: Trachea midline. Supple, nontender. No palpable thyroid enlargement or nodularity. CARDIOVASCULAR: Regular rate and rhythm without murmurs, gallops, or rubs. No JVD. Peripheral pulses symmetric. RESPIRATORY/CHEST: Symmetric, unlabored respirations. Clear to auscultation. Breath sounds diminished bilaterally. No wheezes, rales, or rhonchi. GASTROINTESTINAL: Abdomen soft, nontender. No hepato-splenomegaly, or palpable masses. No guarding. Bowel sounds present. GENITOURINARY: Without palpable bladder distension. . MUSCULOSKELETAL: Extremities without clubbing, cyanosis, or edema. No calf tenderness. No mottling or clubbing. LYMPHATICS: No palpable cervical or supraclavicular adenopathy. NEUROLOGICAL: Aphasic. Dysarthria. Follows some simple one-step commands. PSYCHIATRIC: No obvious anxiety/depression. No apparent hallucinations or other psychotic thought process. Diagnostic Tests Laboratory: Laboratory Results - last 72 hr 05/16/18 05/16/18 05/17/18 14:18 14:18 04:27 WBC 9.2 RBC 3.20 L Hgb 9.8 L Hct 28.2 L MCV 88.2 MCH 30.6 MCHC 34.7 RDW 14.6 Plt Count 213 MPV 7.0 Neut % (Auto) 77.7 H Lymph % (Auto) 12.9 [place] % (Auto) 6.7 Eos % (Auto) 2.5 Baso % (Auto) 0.2 Neut # (Auto) 7.2 Lymph # (Auto) 1.2 [place] # (Auto) 0.6 Eos # (Auto) 0.2 Baso # (Auto) 0.0 WBC Differential . Differential Comment Auto diff final PT 11.4 INR 1.1 APTT Sodium Potassium 3.5 Chloride Carbon Dioxide Anion Gap BUN Creatinine Estimated GFR Random Glucose Calcium Urine Color Urine Clarity Urine pH Ur Specific [place] Urine Protein Urine Glucose (UA) Urine Ketones Urine Occult Blood Urine Nitrate Urine Bilirubin Urine Urobilinogen Ur Leukocyte Esterase Urine RBC Micro UA Comment Ur Microscopic Review Urine Culture Comments 05/17/18 05/17/18 05/17/18 04:27 04:27 04:27 WBC RBC Hgb Hct MCV MCH MCHC RDW Plt Count MPV Neut % (Auto) Lymph % (Auto) [place] % (Auto) Eos % (Auto) Baso % (Auto) Neut # (Auto) Lymph # (Auto) [place] # (Auto) Eos # (Auto) Baso # (Auto) WBC Differential Differential Comment PT 13.5 H INR 1.3 APTT 59.8 H Sodium 139 Potassium 3.8 Chloride 106 Carbon Dioxide 26.2 Anion Gap 7 BUN 8 Creatinine 0.67 Estimated GFR Greater than 89 Random Glucose 122 H Calcium 7.7 L Urine Color Urine Clarity Urine pH Ur Specific [place] Urine Protein Urine Glucose (UA) Urine Ketones Urine Occult Blood Urine Nitrate Urine Bilirubin Urine Urobilinogen Ur Leukocyte Esterase Urine RBC Micro UA Comment Ur Microscopic Review Urine Culture Comments 05/17/18 05/18/18 05/18/18 18:00 04:12 04:12 WBC RBC Hgb Hct MCV MCH MCHC RDW Plt Count MPV Neut % (Auto) Lymph % (Auto) [place] % (Auto) Eos % (Auto) Baso % (Auto) Neut # (Auto) Lymph # (Auto) [place] # (Auto) Eos # (Auto) Baso # (Auto) WBC Differential Differential Comment PT 31.9 H D INR 3.2 APTT 68.5 H Sodium Potassium Chloride Carbon Dioxide Anion Gap BUN Creatinine Estimated GFR Random Glucose Calcium Urine Color Yellow Urine Clarity Clear Urine pH 7.0 Ur Specific [place] 1.004 Urine Protein Negative Urine Glucose (UA) Negative Urine Ketones Negative Urine Occult Blood Negative Urine Nitrate Negative Urine Bilirubin Negative Urine Urobilinogen 1.0 Ur Leukocyte Esterase Negative Urine RBC Less than 1 Micro UA Comment Culture not ind Ur Microscopic Review Not Reportable Urine Culture Comments Culture not ind 05/18/18 05/18/18 05/18/18 08:34 08:34 18:38 WBC 8.7 RBC 3.33 L Hgb 10.3 L Hct 29.5 L MCV 88.6 MCH 31.0 MCHC 35.0 RDW 15.3 Plt Count 212 MPV 7.0 Neut % (Auto) 78.1 H Lymph % (Auto) 12.0 [place] % (Auto) 7.1 Eos % (Auto) 2.6 Baso % (Auto) 0.2 Neut # (Auto) 6.8 Lymph # (Auto) 1.0 [place] # (Auto) 0.6 Eos # (Auto) 0.2 Baso # (Auto) 0.0 WBC Differential . Differential Comment Auto diff final PT 44.0 H D INR 4.4 APTT Sodium 139 Potassium 3.5 Chloride 105 Carbon Dioxide 25.5 Anion Gap 9 BUN 7 Creatinine 0.65 Estimated GFR Greater than 89 Random Glucose 125 H Calcium 8.5 D Urine Color Urine Clarity Urine pH Ur Specific [place] Urine Protein Urine Glucose (UA) Urine Ketones Urine Occult Blood Urine Nitrate Urine Bilirubin Urine Urobilinogen Ur Leukocyte Esterase Urine RBC Micro UA Comment Ur Microscopic Review Urine Culture Comments 05/19/18 05:18 WBC RBC Hgb Hct MCV MCH MCHC RDW Plt Count MPV Neut % (Auto) Lymph % (Auto) [place] % (Auto) Eos % (Auto) Baso % (Auto) Neut # (Auto) Lymph # (Auto) [place] # (Auto) Eos # (Auto) Baso # (Auto) WBC Differential Differential Comment PT 46.6 H INR 4.6 APTT Sodium Potassium Chloride Carbon Dioxide Anion Gap BUN Creatinine Estimated GFR Random Glucose Calcium Urine Color Urine Clarity Urine pH Ur Specific [place] Urine Protein Urine Glucose (UA) Urine Ketones Urine Occult Blood Urine Nitrate Urine Bilirubin Urine Urobilinogen Ur Leukocyte Esterase Urine RBC Micro UA Comment Ur Microscopic Review Urine Culture Comments Result Diagrams: 05/18/18 08:34 05/18/18 08:34 Procedures: 05/12/2018: Left IJ central line placement Assessment and Plan Pertinent Non-Medical Issues: Psychosocial: Patient is originally from [place]. He served in the [employer] during the [place] [employer]. He has been to his (Haydee) for approximately 61 years. 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 After retiring, they moved to [place] and the patient worked part-time with his son at [employer]. Together they have 2 sons (Noah and Néstor) who both live locally. Patient and his were living their with son, Roland , until the patient's initial stroke in April, Spiritual: Yarsanism Legal: Family believes the patient may have completed written advanced directives and will bring copies of these documents if they are found. Per [place] statutes, in the absence of written advanced directives healthcare proxy decision making falls to the patient's . Family is making decisions together at this time. Ethical issues impacting care: No known ethical issues impacting care at this time. Important Contacts: Haydee Barber, : [phone] Noah Barber, son: [phone] Néstor Barber, son: [phone] Prognosis: Patient is an 83-year-old male status post CVA x2. Patient's initial stroke was approximately 3 weeks ago in April, with subsequent right-sided deficits , dysarthria and intermittent confusion. He was discharged to a SNF for rehab but returned to the ED on 05/11/2018 with new symptoms. Patient is at risk for further decline secondary his advanced age and recurrent CVAs with residual deficits. Code Status: No Code DNR Plan: * NO CODE/DNR * Decision-making: Family believes the patient may have completed written advanced directives and will bring copies of these documents if they are found. Per [place] statutes, in the absence of written advanced directives healthcare proxy decision making falls to the patient's . Family is making decisions together at this time. * Spoke with patient's son at bedside, medical update provided. Answers questions to the best my ability. * Patient's and 2 sons state the patient would not want cardiopulmonary resuscitation in the event that his condition deteriorated. Patient agrees with his family stating he would not want CPR. However, his insight/judgement related to his medical conditions is limited; I would not recommend allowing the patient to make medical decisions on his own at this time. CODE STATUS changed to NO CODE/DNR. Goals aggressive up to the point of cardiopulmonary resuscitation * Symptom management-pain: Patient showing no signs or symptoms of pain on exam. 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 Continue to monitor. * Symptom management-debility: Patient was independent, healthy and active prior to his initial stroke in April,. He was discharged to an SNF with residual right-sided weakness, dysarthria and intermittent confusion. Functional status was slowly improving with rehab until 05/11/2018 when the patient developed new/additional deficits. Physical therapy following, recommending rehab at discharge. * Symptom management-confusion: Oriented to self on exam 05/17/2018. Patient has some confusion at baseline. Additional factors could include ICU stay/delirium, electrolyte imbalances, medications, underlying dementia, constipation, urinary retention, infection, hearing deficit, receptive/expressive aphasia. Non-pharmaceutical therapy can include reducing stimuli, reorientation, maintaining adequate nutrition/hydration etc. * Palliative care will continue to follow this patient throughout his hospitalization to build rapport, assist with symptom managment and goal clarification.
== END 2018-05-19 10:40 ==
LOC: NEPE 15:10 → NEDA 18:27 → N05 21:33 → N03 23:50
PROVIDERS: ADMIT Family Medicine; ATTEND Family Medicine
PROC: PANENDO (2018-05-13 17:20)
PROC: LOOPREV (2018-05-18 08:45)